=== PATIENT | female | born 1940 | race Caucasian/White ===

== ENCOUNTER 2017-04-05 19:56 | Emergency (ER) | payer MEDICARE, SELFPAY ==
[2017-04-05 19:57] VITALS: BP 157/80; PULSE 68; PULSE 69; RESP 17; RESP 18; TEMP 36.4; O2SAT 98; BMI 35.4
--- NOTE | 2017-04-05 19:59 | RAD_ITS ---
STUDY: X-RAY - RIGHT KNEE REASON FOR EXAM: Female, 76 years old. Twisted right knee. Pain. TECHNIQUE: 4 view(s) of the knee. COMPARISON: None. FINDINGS: There is generalized osteopenia. There is mild medial compartmental arthrosis. There is mild arthrosis of the patellofemoral compartment. There is a joint effusion. RAD/Knee 4 or More Views IMPRESSION: Joint effusion with medial and patellofemoral compartment arthrosis. No acute abnormality. Electronically Signed: Hayder Castellanos MD at 21:11 EST , Service support ,
--- NOTE | 2017-04-05 21:51 | ED.DCSUM_ITS ---
- ER Visit Summary Date of Service: 04/05/17 Chief Complaint: Knee pain History of Present Illness: The patient is a 76 F who presents with right knee pain. It began 5 days ago. She states she was getting out of the car when she slipped on ice and twisted her right knee. She did not fall to the ground. She states she felt and heard a snap. She has been able to bear weight. She denies any recent illness. Physical Examination: Afebrile vitals are stable Moist mucous membranes Heart regular rate and rhythm Lungs are clear Abdomen soft Patient does have a right knee effusion but active full range of motion extensor mechanism intact no bony deformity no erythema not hot to the touch 2+ dorsalis pedis pulse Test Results: Knee x-ray shows an effusion and degenerative arthrosis no fracture. Emergency Department Course and Treatment: She was given an Keagan wrap and instructed on supportive care. She has oxycodone at home. She was advised to follow-up with her primary care physician. She was discharged. Treatment Plan: [] Disposition: Discharge Impression: Acute right knee sprain This note was generated with SNOBSWAP dictation software. It may contain incorrect words, spelling, and punctuation that were not noted in review of the chart prior to signing ED Disposition - Plan for ED Patient: Chief Complaint: Lower Extremity Injury Referrals: Luanne Aquino MD [Primary Care Provider] -
--- NOTE | 2017-04-05 21:51 | ED.DEP ---
ED Disposition - Plan for ED Patient: Chief Complaint: Lower Extremity Injury Instructions: ED Effusion Knee Referrals: Luanne Aquino MD [Primary Care Provider] -
[2017-04-05 22:07] VITALS: RESP 20
== END 2017-04-05 22:07 | disposition home or self-care (01) ==
LOC: ED 21:48
PROVIDERS: Emergency Provider Emergency Medicine; Family Provider Internal Medicine; PCP Internal Medicine
DX: S83.91XA Sprain of unspecified site of right knee, initial encounter (principal); W00.0XXA Fall on same level due to ice and snow, initial encounter; Y93.9 Activity, unspecified; Y92.89 Other specified places as the place of occurrence of the external cause; Y99.9 Unspecified external cause status; E78.00 Pure hypercholesterolemia, unspecified; I10 Essential (primary) hypertension; E11.9 Type 2 diabetes mellitus without complications; M25.461 Effusion, right knee
CPT/HCPCS: 73564; 99282

== ENCOUNTER 2017-04-07 16:20 | Emergency (ER) | payer MEDICARE, SELFPAY ==
[2017-04-07 16:22] VITALS: BP 154/78; PULSE 80; RESP 16; TEMP 36.7; O2SAT 97; BMI 40.4
[2017-04-07] MEDS: Triamcinolone Acetonide 40 MG/ML Vial 80 MG IM (16:58)
--- NOTE | 2017-04-07 16:59 | ED.DCSUM_ITS ---
- ER Visit Summary Date of Service: 04/07/17 Chief Complaint: Right Knee pain History of Present Illness: The patient is a 76 F who slipped getting out of her car 6 days ago. Patient states when she put her right foot on the ground it slipped on ice and she felt a snap in her right knee. She did not fall to the ground. She had x-rays on the that showed a small joint effusion and arthrosis. She now complains of getting some cramping in her leg even when sitting at rest. She is only on oxycodone at home for pain. She wanted others anything that can be done further for her leg. Physical Examination: Vital signs are unremarkable. Head and neck examination is normal. Heart is regular rate and rhythm. Lung sounds are clear. Right lower extremity examination was mild tenderness over the anterior right knee with small joint effusion. There is no focal calf or thigh tenderness. No palpable cords. She has strong distal pulses. She has slow, purposeful range of motion. Test Results: I did review right knee x-rays from 2 days ago. Emergency Department Course and Treatment: At this time patient was advised that she could increase the frequency of her oxycodone every 6 hours. She is limiting it twice a day on average. Keagan wrap will be applied to the knee. She is also asking about a steroid shot which is helped in the past. She be given a dose of Kenalog. She is diabetic and she was warned that this would make her blood sugars increase. She presents on a Saturday afternoon I do not have ultrasound available here to rule out a DVT. Because she had an injury to her leg and concerned about some bleeding in the deep muscles and my clinical suspicion for DVT is low. I will not treat her with an anticoagulant at this time. This is been discussed with her. Patient states she has to attend a tomorrow but will be able to come in Saturday for an ultrasound of her leg. She is written an outpatient order for this test. Treatment Plan: [] Disposition: Discharge Impression: Right knee contusion This note was generated with Masterseek dictation software. It may contain incorrect words, spelling, and punctuation that were not noted in review of the chart prior to signing ED Disposition - Plan for ED Patient: Chief Complaint: Fall Referrals: Luanne Aquino MD [Primary Care Provider] -
--- NOTE | 2017-04-07 16:59 | ED.DEP ---
ED Disposition - Plan for ED Patient: Disposition: Home or Assisted Living Chief Complaint: Fall Instructions: ED Sprain Knee Referrals: Luanne Aquino MD [Primary Care Provider] - Mendy Walker DO [STAFF PHYSICIAN] - 3-5 Days if not improving
== END 2017-04-07 17:30 | disposition home or self-care (01) ==
PROVIDERS: Emergency Provider Emergency Medicine; Family Provider Internal Medicine; PCP Internal Medicine
DX: S80.01XD Contusion of right knee, subsequent encounter (principal); W00.0XXD Fall on same level due to ice and snow, subsequent encounter; E11.9 Type 2 diabetes mellitus without complications; I10 Essential (primary) hypertension; E78.00 Pure hypercholesterolemia, unspecified; I48.91 Unspecified atrial fibrillation; E66.9 Obesity, unspecified
CPT/HCPCS: 99282

== ENCOUNTER → 2017-04-08 11:00 | Outpatient (CLI) | payer MEDICARE, SELFPAY ==
--- NOTE | 2017-04-08 11:22 | VDLE_ITS ---
Reason For Study: RT KNEE STRAIN RIGHT GSV is normal. CFV is compressible, spontaneous, phasic, competent and demonstrates normal augmentation. FV is compressible, spontaneous, phasic, competent and demonstrates normal augmentation. POP V is compressible, spontaneous, phasic, competent and demonstrates normal augmentation. T/P Trunk is compressible. PTV is compressible. RT PerV is compressible. Procedure Exam performed in department. A preliminary report was called and/or faxed to ED. Interpretation Summary Deep veins of the right lower extremity are patent and compressible segmentally. There is no evidence of right lower extremity deep vein thrombosis. Valvular competence appears intact within the proximal deep venous system on the right . The right greater saphenous vein appears patent and compressible segmentally. Ordering Physician: Geri Alvarez Referring Physician: MOO REAVES Performed By: Aleyda Chavis, RYLIE, RVT
== END ==
PROVIDERS: Family Provider Internal Medicine; PCP Internal Medicine; Visit Provider Emergency Medicine
DX: M79.604 Pain in right leg (principal); S86.911A Strain of unspecified muscle(s) and tendon(s) at lower leg level, right leg, initial encounter
CPT/HCPCS: 93971

== ENCOUNTER → 2017-04-23 12:12 | Outpatient (CLI) | payer MEDICARE, SELFPAY ==
[2017-04-23 12:32] LABS: Pathologist Comment May follow
[2017-04-23 13:04] LABS: AUTO B FLUID DILUENT BKGD CT WBC <0.1 RBC <0.01 (W<.1,R<.01); Source- Body Fluid SYNOVIAL
[2017-04-23 13:05] LABS: Color / Synovial Fluid YELLOW (Pale Yellow); Viscosity / Synovial Fluid Sl. Viscous (HIGH)
[2017-04-23 13:06] LABS: Appearance /Synovial Fluid Clear (CLEAR); Synovial Fld Mononuclear WBC # 0.352 10^3/ul; Synovial Fld Mononuclear WBC % 75.4 %; Synovial Fld Polynuclear WBC # 0.115 10^3/ul; Synovial Fld Polynuclear WBC % 24.6 %
[2017-04-23 13:48] LABS: RBC /Synovial Fluid 176 /mm3 (0)
[2017-04-23 14:06] LABS: Lymph 28 %; Monocyte /Synovial Fluid 64 %; Neutrophil 8 % (0-25)
[2017-04-23 14:07] LABS: Source / Synovial Fluid RIGHT KNEE
[2017-04-25 09:09] LABS: Pathologist Review Reviewed
[2017-04-25 09:26] LABS: GLUCOSE, SYNOVIAL FLUID 208 mg/dL (.); PROTEIN, SYNOVIAL FLUID 4.1 g/dL (.)
== END ==
PROVIDERS: Visit Provider Orthopaedic Surgery
DX: S83.241A Other tear of medial meniscus, current injury, right knee, initial encounter (principal)
CPT/HCPCS: 82945; 84157; 87070; 87075; 87205; 89050; 89051; 89060

== ENCOUNTER → 2017-05-02 13:07 | Outpatient (CLI) | payer MEDICARE, SELFPAY ==
--- NOTE | 2017-05-02 13:09 | MRI_ITS ---
STUDY: MRI RIGHT KNEE REASON FOR EXAM: Medial knee pain after slipping injury 04/01/2017. TECHNIQUE: Standardized fat and water weighted pulse sequences were obtained in all 3 orthogonal planes. COMPARISON: Radiographs 04/05/2017. FINDINGS: There is a flap tear of the medial meniscus with a displaced fragment at the superior aspect of the posterior horn/body junction of the medial meniscus (proton-density coronal images 14-17). There is mild arthrosis of the medial femorotibial compartment with mild chondral thinning of the medial femoral condyle (T2 sagittal image 19). There is a subchondral stress fracture of the medial femoral condyle (proton-density coronal images 17-19) with bone edema. Normal medial collateral ligamentous complex (MCL). Normal distal semimembranosus, gracilis and semitendinosus tendons. Normal lateral meniscus. Normal hyaline cartilage of the lateral femorotibial compartment. Normal lateral femoral condyle and tibial plateau. Normal proximal tibiofibular articulation. Normal lateral collateral (fibular) ligament. Normal popliteus tendon. Normal biceps femoris tendon. Normal anterior cruciate ligament (ACL). Normal posterior cruciate ligament (PCL). Normal congruent patellofemoral articulation. There is mild arthrosis of the patellofemoral compartment with mild chondral thinning (T2 sagittal image 14). Normal medial and lateral patellar retinaculum. Normal visualized quadriceps tendon. Normal patellar tendon. Normal Hoffa's fat pad. There is a small joint effusion. There is a thin medial patellar plica. There is mild edema in the anterior subcutis adipose space. The otherwise visualized osseous structures are unremarkable. MRI/Lower Ext Joint Only (Routine) IMPRESSION: Medial meniscal tear. Subchondral stress fracture of the medial femoral condyle. Mild arthrosis of the medial femorotibial and patellofemoral compartments. Small joint effusion. Electronically Signed: Lennox Miranda MD at 15:13 EDT Tel , Service support ,
== END ==
PROVIDERS: Visit Provider Orthopaedic Surgery
DX: S83.241A Other tear of medial meniscus, current injury, right knee, initial encounter (principal); M25.561 Pain in right knee
CPT/HCPCS: 73721

== ENCOUNTER 2017-05-15 07:27 | Day surgery (SDC) | payer MEDICARE, SELFPAY ==
[2017-05-15] VITALS (10 sets, daily range): BP systolic 116–155; BP diastolic 48–86; PULSE 65–83; RESP 15–18; TEMP 35.7–37.6; O2SAT 91–96; BMI 37.7
[2017-05-15 08:51] LABS: Bedside Glucose 256 mg/dL (70-110)
[2017-05-15] MEDS: Cefazolin 2 GM in 0.9% Normal Saline 100 ML IV (09:17)
--- NOTE | 2017-05-15 09:35 | RAD_ITS ---
STUDY: X-RAY - RIGHT KNEE REASON FOR EXAM: Micro internal interval fixation medial femoral condyle. TECHNIQUE: 2 fluoroscopic view(s) of the knee. COMPARISON: Radiographs 04/05/2017. FINDINGS: 2 lateral views of the knee reveal an arthroscope and gas in the knee joint. Electronically Signed: Lennox Miranda MD at 7:57 EDT Tel , Service support , RAD/Knee 1 or 2 Views
[2017-05-15] MEDS: Mupirocin Ointment 22gm Tube 1 APPLIC (09:44)
[2017-05-15] MEDS: Bupivacaine 0.25% 30 ML Vial (11:25)
--- NOTE | 2017-05-15 11:30 | PCM.DC.ORTHO ---
Discharge Diet: No Restrictions - nwb right leg, sterile dressings removed at pod 4 and apply bandaids to incision sites, do not get incision wet until pod4, walker at all times, follow up in 2 weeks, call with concerns Discharge Activity: May Not Drive May shower in (days): 1 Ice area for (Minutes): 20 - Every hour while awake. Weight Bearing Status: Weight bearing as tolerated Keep extremity elevated above heart level: Operative Extremity Call your doctor if your incision/area has: Continuous Slow Oozing, Sudden Increased Bleeding, Increased Pain/ Swelling, Increased Redness, Foul Smelling Discharge Call your doctor if you observe: Fever of 101 or Higher, Coldness, Increased Pain, Numbness or Tingling, Change in Color, Calf discomfort Allergies/Adverse Reactions: Allergies ramelteon [From Rozerem] Allergy (Verified 05/15/17 08:05) Other bupropion Adverse Reaction (Verified 05/10/17 14:44) Other UNKNOWN bupropion HCl [From Wellbutrin] Adverse Reaction (Verified 05/10/17 14:44) Other UNKNOWN dexfenfluramine HCl [From Redux] Adverse Reaction (Verified 05/10/17 14:44) Unknown hydrochlorothiazide Adverse Reaction (Verified 05/10/17 14:44) Other UNKNOWN ketorolac tromethamine [From Toradol] Adverse Reaction (Verified 05/10/17 14:44) Itching oxaprozin [From Daypro] Adverse Reaction (Verified 05/10/17 14:44) Other UNKNOWN Medications to take at Discharge ALPRAZolam [Xanax] 0.5 mg PO BID 12/11/13 Bumetanide [Bumex] 0.5 mg PO DAILY 12/11/13 Diltiazem CD [Cardizem CD] 240 mg PO DAILY 12/11/13 Irbesartan [Avapro] 300 mg PO DAILY 12/11/13 Pravastatin [Pravachol] 20 mg PO QHS 12/11/13 Zolpidem Tartrate [Ambien Cr] 12.5 mg PO QHS 12/11/13 Canagliflozin [Invokana] 300 mg PO DAILY 09/12/16 Oxycodone HCl/Acetaminophen [Percocet 7.5-325 mg Tablet] 1 ea PO BID 09/12/16 Duloxetine Hcl [Cymbalta] 60 mg PO DAILY 05/10/17 Oxycodone HCl/Acetaminophen [Percocet 5/325] 1 - 2 tablet PO Q6H PRN PRN #56 tablet 05/15/17 The following prescriptions were given: Oxycodone HCl/Acetaminophen [Percocet 5/325] 1 - 2 tablet PO Q6H PRN PRN #56 tablet PRN Reason: Pain Primary Care Physician: Care Physician,No Primary [Primary Care Provider] - Please Follow Up With: Mendy Walker, - [phone]
--- NOTE | 2017-05-15 11:32 | PCM.OPRPT ---
Report of Operation Date of Procedure: 05/15/17 Pre-Operative Diagnosis: right knee osteoarthritis, medial and lateral meniscus tears, mfc subchondral fracture/edema Post-Operative Diagnosis: same Surgery/Procedure Performed:: sark, pmm and plm, patella chondroplasty, synovectomy, mfc microinternal fixation with bone cement Type of Anesthesia:: General Anesthesiologist: Darien Granados Estimated Blood Loss (mL): minimal Fluids Replaced: 700cc lr Description of Procedure: Preoperative note 76-year-old female with constant right knee pain locking instability. Patient failed conservative treatment elected proceed with a right knee arthroscopy repair is indicated after MRI confirms medial femoral condyle subchondral fracture as well as an unstable medial meniscus and questionable lateral meniscus tear as well as arthritis. Wrist benefits and alternatives surgery discussed with patient. Risks including but not limited to blood loss, blood clot, infection, neurovascular injury, failure procedure, loss of life and loss of limb. Patient is aware would like to proceed with right knee arthroscopy repair is indicated. We did discuss that she may still have pain from the arthritis that was residual however she has grade 4 eburnated changes we probably would not do the subchondral plasty she has at least have some sort of cartilage at least a grade 3-2 purulent covering the MFC before and we will proceed. Patient and family are aware we will proceed as indicated. Operative note Patient seen and examined preoperative holding area. Right knee was marked. Patient brought to the operating room placed supine on the operating table. Signing, anesthesia, antibiotics for Right knee was prepped and draped in usual usual sterile fashion with a tourniquet around her upper thigh. We marked out our anterior lateral anterior medial portal. We then elevated a segment of the leg and the tourniquet was raised to pressure of 300 torr. Timeout was performed. We created her anterior lateral portal under standard technique. We visualize the patellofemoral joint. She had grade 2 fibrillated changes are unstable at the inferior portal pole of patella. We then moved to the anteromedial joint created anterior medial portal under direct visualization. We able to probe the unstable posterior horn to mid body tear. The combination of a shaver and a basket resected to a stable rim. The ACL and PCL were present within the notch. We then moved to the lateral joint line. There was an unstable anterior horn to mid body tear that was carefully resected combination of a shaver and a basket as well. We then reinserted our probe ensure that we had stable remnant meniscus remaining of the medial lateral which we did have. The lateral femoral condyle was intact stable probing there was grade 2 fibrillated changes of the lateral tibial plateau. The medial femoral condyle had grade 2 and grade 3 but cartilage was albeit thin and a 2 x 4 area still like him intact as well as the medial tibial plateau. There is some grade 2 fibrillated changes in grade 3 in the centralized area of the medial tibial plateau but no eburnated no [id number]. We irrigated with copious amounts of sterile saline. We then moved to our micro-internal fixation. Preoperative review of the patient's right knee MRI and the location of the bone marrow lesion consistent with insufficiency stress fracture in the middle femoral condyle was identified. Preoperative surgical planning allow for determination of the optimal method for assessing lesion. Intraoperatively image fluoroscopy combined with bone target instruments from Gin were used to guide surgical instruments into the proximity of the subchondral MFC fracture. The Gin acupoint injection cannula was drilled into the subchondral bone standard repair without methodology pathology was used to treat the subchondral bone defect. Image fluoroscopy was utilized to confirm accurate insertion of the injection cannula into the subchondral fracture. After insertion fracture stabilization position was performed by injecting 1-1/2 cc of Gin bone substitute into the medial femoral condyle. Image fluoroscopy was used to monitor the injection process we did have a little bit extravasated. We then ensure that the bio material flowed into the fracture site to stabilize the fracture and facilitate fracture repair. He has slight extravasation of the bone cement we did go back into the knee and irrigate the knee with copious amounts of sterile saline into we had a completely clear knee with no particles remaining. This did not did extend our tourniquet time quite a bit as I wanted to ensure that there is no particles remaining. We also confirmed with fluoroscopy that there is nothing further in the joint and that we had good bone filling substitute into the defect which is also visualized on fluoroscopy. After irrigating the knee with copious amounts of sterile saline portals were closed with interrupted 4-0 nylon stitches and the placement for the injection was closed with interrupted 4-0 nylon stitch as well. sterile dressing was applied. The patient tolerated the procedure well there are no complications patient was transferred to the recovery room in stable condition. Postoperative note Having an issue with the printer so we will wait until the pictures were printed and we had 1 of the rubs in to fix the printer so that we can give it to the family Nonweightbearing right leg Sterile dressings to remove removed in 4 days Percocet prescription at a [facility] pharmacy next Follow-up in 2 weeks Call with concerns as This note was generated with GoFishation software. It may contain incorrect words, spelling, and punctuation that were not noted in checking the note before signing.
[2017-05-15] MEDS: HYDROcodone Bitartrate/Apap 5/325 Tablet PO (13:52)
== END 2017-05-15 14:42 | disposition home or self-care (01) ==
LOC: SDC 07:28 → AC 07:30
PROVIDERS: Visit Provider Orthopaedic Surgery
PROC: 3E0U3GB Introduction of Recombinant Bone Morphogenetic Protein into Joints, Percutaneous Approach (ICD-10-PCS; CPT 0707T; principal; 2017-05-15 09:15)
DX: M17.11 Unilateral primary osteoarthritis, right knee (principal); S83.241D Other tear of medial meniscus, current injury, right knee, subsequent encounter; I10 Essential (primary) hypertension; E11.9 Type 2 diabetes mellitus without complications; K21.9 Gastro-esophageal reflux disease without esophagitis; E78.00 Pure hypercholesterolemia, unspecified; E55.9 Vitamin D deficiency, unspecified; F32.9 Major depressive disorder, single episode, unspecified; F41.9 Anxiety disorder, unspecified
CPT/HCPCS: 29879; 29880; 73560; 76000; 82962; J7120; J2405

== ENCOUNTER → 2017-05-23 14:42 | Outpatient (CLI) | payer MEDICARE, SELFPAY ==
--- NOTE | 2017-05-23 14:46 | VDLE_ITS ---
Reason For Study: LEG PAIN AND SWELLING RIGHT LEFT GSV is normal. CFV is compressible, spontaneous, phasic, CFV is compressible, spontaneous, phasic, competent, and demonstrates normal competent and demonstrates normal augmentation. augmentation. FV is compressible, spontaneous, phasic, competent and demonstrates normal augmentation. POP V, T/P trunk, PTV, PER V, Soleus V and SSV are dilated and non-compressible with intraluminal echoes. Procedure Exam performed in department. A preliminary report was called and/or faxed to Dr. Walker. Interpretation Summary Acute deep vein thrombosis is noted in the right popliteal vein. Acute deep vein thrombosis is noted in the right tibio-peroneal trunk. Acute deep vein thrombosis is noted in the right posterior tibial vein. Acute deep vein thrombosis is noted in the right peroneal vein. Acute deep vein thrombosis is noted in the right soleus vein. The right common femoral vein and femoral vein are patent, compressible, and competent. The right greater saphenous vein appears patent and compressible segmentally. Acute superficial thrombophlebitis is noted in the right small saphenous vein. Ordering Physician: Mendy Walker Referring Physician: Luanne Aquino M.D. Performed By: Reina Ferrera RVT
== END ==
PROVIDERS: Family Provider Internal Medicine; PCP Internal Medicine; Visit Provider Orthopaedic Surgery
DX: M79.661 Pain in right lower leg (principal)
CPT/HCPCS: 93971

== ENCOUNTER → 2017-05-28 14:20 | Outpatient (CLI) | payer MEDICARE, SELFPAY ==
--- NOTE | 2017-05-28 14:22 | RAD_ITS ---
STUDY: X-RAY - RIGHT KNEE REASON FOR EXAM: Postop. TECHNIQUE: 4 view(s) of the knee. COMPARISON: Radiographs 04/05/2017. FINDINGS: There is osteopenia. There is an area of osteosclerosis in the medial femoral condyle. Normal visualized proximal tibia and fibula. Normal proximal tibiofibular articulation. There is joint space narrowing of the medial femorotibial compartment. Normal lateral femorotibial compartment. There is no significant joint space narrowing of the patellofemoral articulation. There is a joint effusion. There is a small enthesophyte at the superior pole of the patella. RAD/Knee 4 or More Views IMPRESSION: Interval development of osteosclerosis in the medial femoral condyle suggestive of insufficiency fracture. Arthrosis of the medial femorotibial compartment. Joint effusion. Electronically Signed: Lennox Miranda MD at 12:59 EDT Tel , Service support ,
== END ==
PROVIDERS: Family Provider Internal Medicine; PCP Internal Medicine; Visit Provider Orthopaedic Surgery
DX: M25.561 Pain in right knee (principal)
CPT/HCPCS: 73564

== ENCOUNTER 2017-05-30 09:21 | Observation (INO) | payer MEDICARE, SELFPAY ==
[2017-05-30] VITALS (8 sets, daily range): BP systolic 148–154; BP diastolic 64–85; PULSE 82–96; RESP 16–18; TEMP 36.5–36.8; O2SAT 96–98; BMI 38.9; BMI 38.7; BMI 38.8
--- NOTE | 2017-05-30 09:35 | NURSING ---
NO LW OR POA
--- NOTE | 2017-05-30 09:37 | EKG12_ITS ---
Test Reason : CP Blood Pressure : / mmHG Vent. Rate : 084 BPM Atrial Rate : 084 BPM P-R Int : 160 ms QRS Dur : 078 ms QT Int : 378 ms P-R-T Axes : 054 002 080 degrees QTc Int : 446 ms Normal sinus rhythm Nonspecific T wave abnormality Abnormal ECG Confirmed by LOU KEE, SAMI ([id number]), science editor JIMMY HART ([id number]) on 06/04/2017 2:11:47 PM Referred By: CHEPE Confirmed By:SAMI BLAKE MD
--- NOTE | 2017-05-30 09:37 | RAD_ITS ---
STUDY: X-RAY CHEST REASON FOR EXAM: Female, 76 years old. Chest pain. Confusion. TECHNIQUE: Single AP portable view of the chest. COMPARISON: Comparison is made with prior study dated September 12, 2016. FINDINGS: EKG electrodes are seen. The lungs are clear and expanded. There is no demonstrated pleural abnormality. Normal size heart. Normal mediastinum and deondre. Normal visualized pulmonary arteries. There is atherosclerotic tortuosity of the aortic arch and descending thoracic aorta. Normal visualized thoracic spine. Normal visualized ribs, clavicles, and shoulders. There is no demonstrated abnormality of the visualized soft tissue structures of the upper abdomen. RAD/Chest 1 View (Portable) IMPRESSION: No acute abnormality is present. Electronically Signed: Uvaldo Biswas MD at 11:23 EDT Tel [phone], Service support ,
[2017-05-30] MEDS: 0.9% Normal Saline 1,000 ML 150 ML IV (10:16)
--- NOTE | 2017-05-30 10:42 | CT_ITS ---
STUDY: CT BRAIN WITHOUT CONTRAST REASON FOR EXAM: Female, 76 years old. Confusion and memory loss. RADIATION DOSAGE (If Supplied By Facility): CTDIvol = ( 44.99 ) mGy, DLP = ( 796.11 ) mGycm TECHNIQUE: Transaxial CT imaging of the brain was performed without administration of intravenous contrast material. Individualized dose optimization techniques were used for this CT. COMPARISON: None. FINDINGS: Normal soft tissue structures. Normal calvarium. There is mild cerebral atrophy with widening of the extra-axial spaces and ventricular dilatation. There are areas of decreased attenuation within the white matter tracts of the supratentorial brain, consistent with microvascular disease changes. Normal basal ganglia and thalami. Normal brainstem. Normal cerebellum. There is no intracranial hemorrhage. There are no findings of an acute ischemic infarction. Atherosclerotic calcification of the cavernous portions of the internal carotid arteries bilaterally. Opacification of the sphenoid sinus bilaterally. CT/Brain/Head without Contrast IMPRESSION: Chronic involutional changes of the brain. There is opacification of the sphenoid sinus bilaterally. Electronically Signed: Uvaldo Biswas MD at 11:52 EDT Tel [phone], Service support ,
--- NOTE | 2017-05-30 10:46 | NURSING ---
NO LW OR POA
[2017-05-30 11:05] LABS: Absolute Lymphocyte Count 1.43 X10^3/ul (0.83-4.51); Basophil# 0.01 X10^3/uL; Basophil% 0.1 % (0-1); Eosinophil# 0.04 X10^3/uL; Eosinophils% 0.4 % (0-5); Lymphocyte # 1.43 X10^3/ul (4.0); Mean Corp Hgb Conc 32.5 g/gl (32-36); Mean Corpuscular Hgb 30.6 pg (27.0-32.0); Mean Corpuscular Volume 94.1 fL (81-99); Mean Platelet Vol. 10.1 fl (6.2-12.0); Monocyte# 0.45 X10^3/uL; Monocyte% 4.1 % (0-10); Neutrophil # 8.98 X10^3/uL (2.7-7.7); Neutrophil % 81.9 % (47-70); Platelet Count 161 K/mm3 (150-450); RBC Distribution Width CV 14.9 % (11.6-14.6); RBC Distribution Width SD 50.4 fl (35.1-43.9); Red Blood Count 4.25 M/mm3 (4.2-5.4)
[2017-05-30 11:06] LABS: POSITIVE COUNT NO; POSITIVE DIFFERENTIAL NO; POSITIVE MORPHOLOGY NO
[2017-05-30 11:14] LABS: Anion Gap 7 (5-15); BUN 11 mg/dL (7-18); BUN/Creat Ratio 16.9 RATIO (10-20); Calcium,Total 9.5 mg/dL (8.5-10.1); Chloride 107 mmol/L (98-107); Creatinine, Serum 0.65 mg/dL (0.55-1.02); EST Glomerular Filtration Rate 94 mL/min (>60); Est Glom Filt Rate - Afr Amer 114 mL/min (>60); Estimated Creatinine Clearance 41.97 ml/min; Glucose 141 mg/dL (74-106); Potassium 3.8 mmol/L (3.5-5.1); Sodium Level 140 mmol/L (136-145)
--- NOTE | 2017-05-30 11:44 | CASEMGMT ---
Social Work Note In to complete initial assessment with pt as she is targeted as a probable admit. Introduced self and role at [facility]. Pt is alert and oriented, but reports memory issues. She is accompanied by family. Pt reports to live in a one-story home. Had an outpatient knee surgery by Dr. Walker on 05/15 and reports a fall in the last week. Claims that a family member usually stays with her, but has not been recently. DME consists of a walker, cane, shower chair, toilet riser and grab bars. Does not anticipate additional DME needs at discharge. Pt and family express that pt may have needs too great for home at this time and educate to [facility] and area SNFs. Pt indicates that she would like to stay at the hospital, but does not feel that she can do the 3 hrs required by [facility]. Requests to go to TCU. Inform that SW will notify that unit and have her placed on a list, but cannot guarantee her a bed at this time. Understanding expressed. Placed call to [facility] and placed pt on TCU list. Will continue to follow to see if pt is admitted and update appropriate inpatient SW if necessary. Aida Gardner, PROCESS DEVELOPMENT MANAGER, [employer]
[2017-05-30 12:11] LABS: Bacteria 0 SEEN /hpf (None Seen); Mucous, Urine 0 SEEN /hpf (<or=2+); Squamous Epithelial Cells - UA 0 SEEN /hpf (5-10)
[2017-05-30 12:27] LABS: Color, Urine Yellow (Yellow); Glucose, Dipstick 1000 mg/dl (Normal); Ketone-Dipstick 15 mg/dl (Negative); Leukocyte Esterase-Dipstick 25 /ul (Negative); Nitrite-Dipstick Negative (Negative); Occult Blood-Urine 10 /ul (Negative); Protein-Dipstick Negative (Negative); Urine Bilirubin Dipstick Negative (Negative); Urine Clarity Clear (Clear); Urine Urobilinogen Normal (Normal)
[2017-05-30 12:43] LABS: Red Blood Cells-Urine 0-5 SEEN /hpf (0-5); White Blood Cells 0-5 SEEN /hpf (0-5)
--- NOTE | 2017-05-30 12:53 | ED.RN ---
med rec completed to pt's best ability. pt forgetful
--- NOTE | 2017-05-30 13:12 | ED.RN ---
PT REFUSED TO HAVE LACTIC ACID DRAWN BY LAB. DR SINGER
--- NOTE | 2017-05-30 13:34 | ED.DCSUM_ITS ---
- ER Visit Summary Date of Service: 05/30/17 Chief Complaint: [Confusion and shortness of breath] History of Present Illness: The patient is a 76 F [presents to the emergency department with confusion this morning. Patient states that she was seen by physician at the [facility] yesterday and diagnosed with a urinary tract infection and started on nitrofurantoin. Patient complains of nausea and some shortness of breath today. Patient complained of some sweats. Patient lives alone. Patient states she cannot remember what medications she is supposed to take. Patient apparently had a surgery on her right knee for torn meniscus on May 15. Patient subsequently developed a DVT and was started on Xarelto. Patient tells me she has been taking her Xarelto regularly. Patient scrubs a mild chest discomfort that she describes as a pressure. Patient feels slightly short of breath. Patient thinks this is her anxiety acting up.] Physical Examination: [HEENT-PERRLA, EOMI. Cranial nerves II through XII grossly intact. TMs clear. Mucous membranes moist. No adenopathy. Cardiovascular-regular rate and rhythm without murmur or ectopy Lungs-clear to auscultation, chest wall stable without crepitus or subcu emphysema Abdomen-normoactive bowel sounds, soft, nontender, no rebound or rigidity, no peritoneal signs. Extremities-intact ?4, normal range of motion, normal pulses, atraumatic] Test Results: [CT scan of the brain without contrast showed chronic involutional changes otherwise nothing acute. CBC with differential was unremarkable. Chemistries unremarkable. Urinalysis was normal. Troponin was less than 0.02. EKG shows sinus rhythm with a ventricular rate of 84 bpm with some nonspecific ST changes and chest x-ray showed nothing acute.] Emergency Department Course and Treatment: [Patient did receive 1 OxyIR tablet for her knee pain as patient normally takes Percocet every 6 hours.] Treatment Plan: Admit for further workup and evaluation of confusion. It is possible her confusion may be medication related. Family is concerned about patient being able to care for herself and are asking about possibility for going to a rehabilitation facility. [] Disposition: [Admit] Impression: [Confusion-etiology uncertain Chest pain-resolved] This note was generated with [employer] dictation software. It may contain incorrect words, spelling, and punctuation that were not noted in review of the chart prior to signing ED Disposition - Plan for ED Patient: Chief Complaint: Mental Status Change Referrals: Luanne Aquino MD [Primary Care Provider] -
--- NOTE | 2017-05-30 13:35 | NURSING ---
MED SURG OBS AMS, CONFUSION TANISHA
--- NOTE | 2017-05-30 13:46 | NURSING ---
DR GARAY IN ER
[2017-05-30] MEDS: oxyCODONE 5 MG Tablet PO ×2 (14:12→21:47)
--- NOTE | 2017-05-30 14:19 | PCM.HP.STD ---
Problem List (1) Altered mental status, unspecified Status: Acute (2) Afib Status: Acute (3) SBO (small bowel obstruction) Status: Acute (4) Hyperlipidemia Status: Chronic (5) Osteoarthritis Status: Chronic (6) Hypertension Status: Chronic (7) Type 2 diabetes mellitus Status: Chronic (8) Right leg DVT Status: Acute Qualifiers: Chronicity: acute (9) Right knee meniscus surgery Status: Chronic History of Present Illness Date of Admission: 05/30/17 Chief Complaint: Altered mental status for few days The patient is a 76 year old F with recent history of right knee meniscal surgery on 05/15/2017 and subsequent development of right lower extremity DVT on Xarelto was brought into ER for altered mental status, confusion and disorientation feeling anxiety for last 2-3 days. As per the family she was recently started on Cymbalta probably 60 mg daily along with she is on Percocet 1-2 tablets q. 6 hourly and Ambien at night. Patient also recently diagnosed with UTI yesterday and she took 1 tablet of nitrofurantoin. Patient has multiple vague complaints including some chest tightness all over aches and pain which are nondescriptive/nonspecific or shortness of breath, most probably related to anxiety. In ED, her workup was was unremarkable. Chest x-ray and CT had did not show acute change. [] Past Medical History Past Medical History (Chronic Problems): Chronic Problems (Last Updated 04/23/17 @ 09:56 by Armida Neal) Right knee meniscus surgery (Chronic) Hyperlipidemia (Chronic) Osteoarthritis (Chronic) Hypertension (Chronic) Type 2 diabetes mellitus (Chronic) Allergies ramelteon [From Rozerem] Allergy (Verified 05/30/17 09:30) Other bupropion Adverse Reaction (Verified 05/30/17 09:30) Other UNKNOWN bupropion HCl [From Wellbutrin] Adverse Reaction (Verified 05/30/17 09:30) Other UNKNOWN dexfenfluramine HCl [From Redux] Adverse Reaction (Verified 05/30/17 09:30) Unknown hydrochlorothiazide Adverse Reaction (Verified 05/30/17 09:30) Other UNKNOWN ketorolac tromethamine [From Toradol] Adverse Reaction (Verified 05/30/17 09:30) Itching oxaprozin [From Daypro] Adverse Reaction (Verified 05/30/17 09:30) Other UNKNOWN Home Medications: Ambulatory Orders Medication Instructions Recorded ALPRAZolam [Xanax] 0.5 mg PO QHS 12/11/13 Bumetanide [Bumex] 1 mg PO DAILY 12/11/13 Diltiazem CD [Cardizem CD] 240 mg PO DAILY 12/11/13 Irbesartan [Avapro] 300 mg PO DAILY 12/11/13 Pravastatin [Pravachol] 20 mg PO QHS 12/11/13 Canagliflozin [Invokana] 300 mg PO DAILY 09/12/16 Oxycodone HCl/Acetaminophen 1 - 2 tablet PO Q6H PRN PRN #56 05/15/17 [Percocet 5/325] tablet rivaroxaban 15 mg tablet 15 mg PO QPM #21 tab 05/23/17 Surgical History: - - 2014 had bowel resection, also had whipple procedure in [place] 2007-, tubal ligation, carpal tunnel in wrist, shoulder and hand surgery hysterectemy, bladder suspension, wall between vagina and colon.cholecystectemy. Smoking Status: Never smoker - *Family History Paternal History Items: - - afib Review of Systems Constitutional: Reports: Weakness, Fatigue. Denies: Chills, Fever, Weight Change HEENT: Denies: Head Aches, Sinus Congestion, Sinus Drainage Cardiovascular: Reports: Chest Tightness. Denies: Chest Pain, Palpitations Respiratory: Denies: Cough, Shortness of breath at rest, Sputum production Gastrointestinal: Denies: Abdominal Pain, Nausea, Vomiting Genitourinary: Denies: Dysuria Musculoskeletal: Reports: Joint Pain. Denies: Joint Tenderness Skin: Denies: Rash, Wounds Neurological: Denies: Numbness, Tingling, Focal weakness Psychiatric: Reports: Anxiety. Denies: Depression, Homicidal Ideations, Suicidal Ideations Hematologic/ Lymphatic: Denies: Easy Bruising, Easy Bleeding VTE Information - Inpt Only VTE Present on Admission: No VTE Mechan Device Prophylaxis: None VTE Pharm Prophylaxis ordered?: Yes Patient Problems: Active and Suspected Problems (Last Updated 04/23/17 @ 09:56 by Armida Neal) Altered mental status, unspecified (Acute) Right leg DVT (Acute) - Physical Exam General: Alert, Oriented x3, Cooperative HEENT: Atraumatic, PERRLA, EOMI, Normocephalic Neck: Supple, No JVD, Negative Carotid Bruits Lungs: Clear to auscultation, No rhonchi Cardiovascular: Regular rate, Regular Rhythm, Normal S1, Normal S2, No murmurs Abdomen: Bowel Sounds Present, Soft, Non Tender, Non-Distended Extremities: Capillary Refill Less than 3 Seconds, Edema Skin: No rashes, No breakdown Musculoskeletal: Arthritic Changes Neurological: Cranial nerves II-XII grossly intact, Neuro grossly intact, - Psych/Mental Status: Normal Affect, Appropriate Vital Signs Temp Pulse Resp BP Pulse Ox 98.2 F 88 18 154/85 H 96 05/30/17 09:24 05/30/17 14:00 05/30/17 14:00 05/30/17 14:00 05/30/17 14:00 Oxygen Delivery Method Room Air Assessment/Plan Active and Suspected Problems (Last Updated 04/23/17 @ 09:56 by Armida Neal) Altered mental status, unspecified (Acute) Right leg DVT (Acute) The patient is a 76 year old F with recent history of right knee meniscal surgery on 05/15/2017 and subsequent development of right lower extremity DVT on Xarelto was brought into ER for altered mental status, confusion and disorientation feeling anxiety for last 2-3 days. As per the family she was recently started on Cymbalta probably 60 mg daily along with she is on Percocet 1-2 tablets q. 6 hourly and Ambien at night. Patient also recently diagnosed with UTI yesterday and she took 1 tablet of nitrofurantoin. Patient has multiple vague complaints including some chest tightness all over aches and pain which are nondescriptive/nonspecific or shortness of breath, most probably related to anxiety. In ED, her workup was was unremarkable. Chest x-ray and CT had did not show acute change. 1. Altered in status most probably acute encephalopathy secondary to polypharmacy/anxiety: The patient is being admitted to PCU. Neurochecks. UA is negative except leukocyte esterase 25. Urine culture ordered. Treat the underlying cause 2. Nonspecific chest pain and some shortness of breath related to anxiety: Serial cardiac enzymes to rule out ACS. 3. Recent diagnosis of UTI, right lower leg DVT status post right meniscal surgery: Continue nitrofurantoin. Continue Xarelto. Follow urine culture. PT and OT ordered for difficulty in mobility and right knee arthritis For possible SNF placement 4. Other chronic comorbidities include paroxysmal A. fib, type 2 diabetes mellitus, hypertension, osteoarthritis and dyslipidemia: Home medication reconciliation done. Current EKG shows normal sinus rhythm at 84 bpm. Previous EKG of November 2017 shows normal sinus rhythm. 5. DVT prophylaxis: On Xarelto. Clinical Impression(s) from Imaging Studies Chest X-Ray 05/30/17 09:37 IMPRESSION: No acute abnormality is present. Electronically Signed: Uvaldo Biswas MD at 11:23 EDT Tel [phone], Service support , Brain CT 05/30/17 10:42 IMPRESSION: Chronic involutional changes of the brain. There is opacification of the sphenoid sinus bilaterally. Electronically Signed: Uvaldo Biswas MD at 11:52 EDT Tel [phone], Service support , Laboratory Results 05/30/17 10:50: WBC 11.0, RBC 4.25, Hgb 13.0, Hct 40.0, MCV 94.1, MCH 30.6, MCHC 32.5, RDW 14.9 H, RDW Differential 50.4 H, Plt Count 161, MPV 10.1, Immature Gran % (Auto) 0.500, Neut % (Auto) 81.9 H, Lymph % (Auto) 13.0 L, [place] % (Auto) 4.1, Eos % (Auto) 0.4, Baso % (Auto) 0.1, Absolute Neuts (auto) 9.0 H, Absolute Lymphs (auto) 1.43, Total Counted Not Reportable 05/30/17 10:50: Sodium 140, Potassium 3.8, Chloride 107, Carbon Dioxide 26.0, Anion Gap 7, BUN 11, Creatinine 0.65, Estim Creat Clear Calc 41.97, Est GFR (MDRD) Af Amer 114, Est GFR (MDRD) Non-Af 94, BUN/Creatinine Ratio 16.9, Glucose 141 H, Calcium 9.5, Troponin I < 0.02 05/30/17 12:05: Urine Color Yellow, Urine Clarity Clear, Urine pH 7.0, Ur Specific [place] 1.010, Urine Protein Negative, Urine Glucose (UA) 1000 H, Urine Ketones 15 H, Urine Occult Blood 10 H, Urine Nitrite Negative, Urine Bilirubin Negative, Urine Urobilinogen Normal, Ur Leukocyte Esterase 25 H, Urine RBC 0-5 SEEN, Urine WBC 0-5 SEEN, Ur Squamous Epith Cells 0 SEEN, Urine Bacteria 0 SEEN, Urine Mucus 0 SEEN Code Visit OBSV E&M: 91932 Initial observation care L3
[2017-05-30] MEDS: 0.9% Normal Saline 1,000 ML 75 ML IV (16:38)
[2017-05-30 17:40] LABS: Bedside Glucose 128 mg/dL (70-110)
[2017-05-30] MEDS: Rivaroxaban 15 MG Tablet PO (18:15)
[2017-05-30] MEDS: QUEtiapine 25 MG Tablet PO (20:19)
[2017-05-30 21:46] LABS: Bedside Glucose 128 mg/dL (70-110)
[2017-05-31] VITALS (9 sets, daily range): BP systolic 127–152; BP diastolic 55–80; PULSE 71–80; RESP 16; TEMP 36.4–36.8; O2SAT 94–96
[2017-05-31] MEDS: oxyCODONE 5 MG Tablet PO ×3 (05:24→20:42)
[2017-05-31 06:55] LABS: Bedside Glucose 200 mg/dL (70-110)
[2017-05-31 07:10] LABS: Absolute Neutrophil Count 3.6 X10^3/uL (2.0-7.7); Basophil# 0.02 X10^3/uL; Basophil% 0.3 % (0-1); Eosinophil# 0.05 X10^3/uL; Eosinophils% 0.8 % (0-5); Hematocrit 36.9 % (37-47); Lymphocyte % 34.6 % (19-41); Mean Corp Hgb Conc 32.5 g/gl (32-36); Mean Corpuscular Volume 95.3 fL (81-99); Mean Platelet Vol. 9.5 fl (6.2-12.0); Monocyte# 0.44 X10^3/uL; Monocyte% 6.9 % (0-10); Neutrophil # 3.59 X10^3/uL (2.7-7.7); Neutrophil % 56.6 % (47-70); Platelet Count 183 K/mm3 (150-450); RBC Distribution Width CV 14.9 % (11.6-14.6); Red Blood Count 3.87 M/mm3 (4.2-5.4); White Blood Count 6.4 K/mm3 (4.4-11.0)
[2017-05-31 07:12] LABS: POSITIVE COUNT NO; POSITIVE DIFFERENTIAL NO; POSITIVE MORPHOLOGY NO
[2017-05-31 07:34] LABS: Anion Gap 7 (5-15); BUN 11 mg/dL (7-18); BUN/Creat Ratio 20.6 RATIO (10-20); Calcium,Total 9.6 mg/dL (8.5-10.1); Chloride 111 mmol/L (98-107); Creatinine, Serum 0.53 mg/dL (0.55-1.02); EST Glomerular Filtration Rate 118 mL/min (>60); Est Glom Filt Rate - Afr Amer 143 mL/min (>60); Estimated Creatinine Clearance 40.21 ml/min; Glucose 123 mg/dL (74-106); Potassium 3.8 mmol/L (3.5-5.1); Sodium Level 143 mmol/L (136-145)
[2017-05-31] MEDS: Nitrofurantoin Macrocrystals 100 MG Capsule PO ×2 (10:30→21:10)
[2017-05-31] MEDS: dilTIAZem CD 240 MG Capsule PO (10:30)
--- NOTE | 2017-05-31 11:01 | CASEMGMT ---
This RN CM to room with PETERSON form at this time. Pt is A/O x4 at this time. PETERSON form explained at this time, pt voices understanding and signs form at this time. Original to chart and copy to pt at this time. Pt voices no further questions/concerns at this time. SStaten HIRAM LILLY
--- NOTE | 2017-05-31 11:27 | CASEMGMT ---
Addendum entered by Marilyn Freed 05/31/17 13:20: AMY spoke with Luciana and let her know therapy has seen patient and their notes are in the computer. Luciana will start the process to obtain insurance approval. Plan: TCU pending insurance approval Marilyn CAM Original Note: Spoke with Luciana in TCU and they can take patient. She will start pre-cert as soon as therapy sees patient. AMY spoke with therapy and they will see patient next. Plan: TCU pending insurance approval Marilny CAM
[2017-05-31 11:51] LABS: Bedside Glucose 135 mg/dL (70-110)
--- NOTE | 2017-05-31 11:55 | PCM.PROGNOTE ---
<Aida Walters - Last Filed: 05/31/17 12:45> Patient Problems: Active and Suspected Problems (Last Updated 04/23/17 @ 09:56 by Armida Neal) Altered mental status, unspecified (Acute) Right leg DVT (Acute) Subjective: Patient seen and examined. Mental status at baseline. Patient states she remembers pieces of the events that occurred prior to admission. She states she feels much better. Patient wishes to go to TCU at discharge. Denies other complaints. - Physical Exam General: Alert, Oriented x3, Cooperative HEENT: Atraumatic, PERRLA, EOMI, Normocephalic Neck: Supple, No JVD, Negative Carotid Bruits Lungs: Clear to auscultation, Normal air movement Cardiovascular: Regular rate, Regular Rhythm, Normal S1, Normal S2, No murmurs Abdomen: Bowel Sounds Present, Soft, Non Tender Extremities: No clubbing, No cyanosis, Edema - Right knee Skin: - - Right knee with diffuse ecchymosis Musculoskeletal: Tenderness - R knee Neurological: Cranial nerves II-XII grossly intact, Neuro grossly intact Psych/Mental Status: Normal Affect, Appropriate Vital Signs Temp Pulse Resp BP Pulse Ox 98.1 F 80 16 129/55 H 96 05/31/17 09:28 05/31/17 09:28 05/31/17 09:28 05/31/17 09:28 05/31/17 09:28 Oxygen Delivery Method Room Air Weight: 99.3 kg Body Mass Index (BMI) 38.7 Intake and Output for Last 24 Hours 05/29/17 05/30/17 05/31/17 23:59 23:59 23:59 Intake Total 392 / 392 1179 / 1179 Output Total 600 / 600 Balance 392 / 392 579 / 579 Laboratory Tests Past 24 Hrs 05/30/17 05/30/17 05/31/17 15:31 18:56 00:51 WBC RBC Hgb Hct MCV MCH MCHC RDW RDW Differential Plt Count MPV Immature Gran % (Auto) Neut % (Auto) Lymph % (Auto) [place] % (Auto) Eos % (Auto) Baso % (Auto) Absolute Neuts (auto) Absolute Lymphs (auto) Total Counted Sodium Potassium Chloride Carbon Dioxide Anion Gap BUN Creatinine Estim Creat Clear Calc Est GFR (MDRD) Af Amer Est GFR (MDRD) Non-Af BUN/Creatinine Ratio Glucose Calcium Troponin I < 0.02 < 0.02 < 0.02 05/31/17 05/31/17 06:05 06:05 WBC 6.4 RBC 3.87 L Hgb 12.0 Hct 36.9 L MCV 95.3 MCH 31.0 MCHC 32.5 RDW 14.9 H RDW Differential 50.0 H Plt Count 183 MPV 9.5 Immature Gran % (Auto) 0.800 Neut % (Auto) 56.6 Lymph % (Auto) 34.6 [place] % (Auto) 6.9 Eos % (Auto) 0.8 Baso % (Auto) 0.3 Absolute Neuts (auto) 3.6 Absolute Lymphs (auto) 2.20 Total Counted Not Reportable Sodium 143 Potassium 3.8 Chloride 111 H Carbon Dioxide 25.0 Anion Gap 7 BUN 11 Creatinine 0.53 L Estim Creat Clear Calc 40.21 Est GFR (MDRD) Af Amer 143 Est GFR (MDRD) Non-Af 118 BUN/Creatinine Ratio 20.6 H Glucose 123 H Calcium 9.6 Troponin I POC Glucose 05/31/17 05/31/17 05/30/17 11:24 06:49 21:42 POC Glucose 135 H 200 H 128 H 05/30/17 16:47 POC Glucose 128 H Medical Necessity - Tobacco Use Smoking Status: Never smoker Tobacco Use: Non-smoker Assessment/Plan Active and Suspected Problems (Last Updated 04/23/17 @ 09:56 by Armida Neal) Altered mental status, unspecified (Acute) Right leg DVT (Acute) Patient is a 76-year-old female admitted 05/30/17 due to altered mental status. She has a past medical history of hyperlipidemia, osteoarthritis, hypertension, type 2 diabetes mellitus, depression, anxiety, recent right knee meniscus surgery. 1. Altered mental status, suspected encephalopathy secondary to polypharmacy and/or UTI-patient states she recently had a few deaths in her family and has been having increased anxiety and depression. Her Cymbalta was increased by primary care physician to 60 mg daily and then decreased back to 30mg. Patient is a poor informant regarding her medications. She is also taking Ambien at night to help her sleep as well as Percocet as needed for pain in which she has received multiple recent prescriptions. She is also on Xanax at bedtime which she states she has been on for approximately 15-20 years. Patient states she has not been taking her medications for 1-2 weeks following surgery due to being out of sorts. She states she normally lays out her medication in a pill dispenser and has not been doing that since her recent surgery. She was started on Seroquel. Cymbalta on hold. Her mental status is now at baseline. Patient also diagnosed with UTI prior to admission and had completed 1 tablet of nitrofurantoin. UA and urine culture during admission unremarkable. Continue Macrobid for 5 days. TCU at [place] pending pre-cert. Brain CT shows chronic changes. Chest x-ray shows no acute abnormality. 2. Chest pain-resolved. Suspected secondary to anxiety. Troponin negative. EKG without evidence of ischemia. 3. Physical debility status post recent right meniscal surgery-patient underwent right knee meniscal surgery 05/15/[address] Walker. Patient states she was told that she will need further repair due to incident prior to admission of patient crawling on knees. Continue outpatient follow-up. 4. Recent right lower extremity DVT-occurred following recent right meniscal surgery. Continue Xarelto. 5. Paroxysmal atrial fibrillation-currently sinus rhythm. Continue Cardizem and Xarelto. 6. Type 2 diabetes mellitus-home oral regimen on hold. Continue Accu-Cheks before meals at bedtime with sliding scale insulin. 7. Hypertension-stable, continue current regimen. 8. Hyperlipidemia-not on statin. 9. Osteoarthritis-PRN pain regimen. PT/OT. DVT prophylaxis-Xarelto. Discharge planning-TCU pending pre-cert. This patient was seen by SINDI Hidalgo under the supervision of Dr. Tirado. <Margarito Tirado - Last Filed: 05/31/17 15:31> - Physical Exam Vital Signs Temp Pulse Resp BP Pulse Ox 98.1 F 71 16 129/55 H 96 05/31/17 09:28 05/31/17 11:00 05/31/17 09:28 05/31/17 09:28 05/31/17 09:28 Oxygen Delivery Method Room Air Weight: 99.3 kg Body Mass Index (BMI) 38.7 Intake and Output for Last 24 Hours 05/29/17 05/30/17 05/31/17 23:59 23:59 23:59 Intake Total 392 / 392 1569 / 1569 Output Total 600 / 600 Balance 392 / 392 969 / 969 Laboratory Tests Past 24 Hrs 05/30/17 05/30/17 05/31/17 15:31 18:56 00:51 WBC RBC Hgb Hct MCV MCH MCHC RDW RDW Differential Plt Count MPV Immature Gran % (Auto) Neut % (Auto) Lymph % (Auto) [place] % (Auto) Eos % (Auto) Baso % (Auto) Absolute Neuts (auto) Absolute Lymphs (auto) Total Counted Sodium Potassium Chloride Carbon Dioxide Anion Gap BUN Creatinine Estim Creat Clear Calc Est GFR (MDRD) Af Amer Est GFR (MDRD) Non-Af BUN/Creatinine Ratio Glucose Calcium Troponin I < 0.02 < 0.02 < 0.02 05/31/17 05/31/17 06:05 06:05 WBC 6.4 RBC 3.87 L Hgb 12.0 Hct 36.9 L MCV 95.3 MCH 31.0 MCHC 32.5 RDW 14.9 H RDW Differential 50.0 H Plt Count 183 MPV 9.5 Immature Gran % (Auto) 0.800 Neut % (Auto) 56.6 Lymph % (Auto) 34.6 [place] % (Auto) 6.9 Eos % (Auto) 0.8 Baso % (Auto) 0.3 Absolute Neuts (auto) 3.6 Absolute Lymphs (auto) 2.20 Total Counted Not Reportable Sodium 143 Potassium 3.8 Chloride 111 H Carbon Dioxide 25.0 Anion Gap 7 BUN 11 Creatinine 0.53 L Estim Creat Clear Calc 40.21 Est GFR (MDRD) Af Amer 143 Est GFR (MDRD) Non-Af 118 BUN/Creatinine Ratio 20.6 H Glucose 123 H Calcium 9.6 Troponin I POC Glucose 05/31/17 05/31/17 05/30/17 11:24 06:49 21:42 POC Glucose 135 H 200 H 128 H 05/30/17 16:47 POC Glucose 128 H Assessment/Plan This patient was seen in conjunction with SINDI Hidalgo. I have independently interviewed and examined the patient and reviewed pertinent historical, laboratory, and other data. Please refer to Cate Hidalgo for details of this patient's presentation, findings, and recommendations. I have reviewed Aida Romeo, SENIOR BILLING CONSULTANT-C note and concur with documented findings. In brief, Patient is an 76 lady who presented with AMS after a recent increase in her cymbalta Physical Examination: GENERAL: cooperative HEENT: Clear conjunctiva, NECK; supple, normal thyroid, CHEST: Clear to auscultation bilaterally HEART: Regular S1 S2, no audible murmurs ABDOMEN: soft, non-tender, normoactive bowel sounds, EXTREMITIES: No edema, no clubbing, no cyanosis. SEXUAL ASSAULT SOCIAL WORKER: Awake, no lateralizing signs. SKIN: No rash Assessment: 1. Altered mental status, encephalopathy secondary to polypharmacy 2. Recent right lower extremity DVT- provoked following surgery on Xarelto. 3. Paroxysmal atrial fibrillation- 4. Atypical Chest pain-resolved. 5. Diabetes mellitus II 6. Hypertension-stable, 7. Dyslipidemia 8. Generalized osteoarthritis 9. Physical debility following recent right meniscus surgery Recommendations: 1. I have discussed the results of my overview and impressions with the patient 2. Options for management were reviewed Code Visit Inpatient E&M: 75590 Subs Hosp L3
--- NOTE | 2017-05-31 12:45 | PN_ITS ---
<Aida Walters - Last Filed: 05/31/17 12:45> Patient Problems: Active and Suspected Problems (Last Updated 04/23/17 @ 09:56 by Armida Neal ) Altered mental status, unspecified (Acute) Right leg DVT (Acute) Subjective: Patient seen and examined. Mental status at baseline. Patient states she remembers pieces of the events that occurred prior to admission. She states she feels much better. Patient wishes to go to TCU at discharge. Denies other complaints. - Physical Exam General: Alert, Oriented x3, Cooperative HEENT: Atraumatic, PERRLA, EOMI, Normocephalic Neck: Supple, No JVD, Negative Carotid Bruits Lungs: Clear to auscultation, Normal air movement Cardiovascular: Regular rate, Regular Rhythm, Normal S1, Normal S2, No murmurs Abdomen: Bowel Sounds Present, Soft, Non Tender Extremities: No clubbing, No cyanosis, Edema - Right knee Skin: - - Right knee with diffuse ecchymosis Musculoskeletal: Tenderness - R knee Neurological: Cranial nerves II-XII grossly intact, Neuro grossly intact Psych/Mental Status: Normal Affect, Appropriate Vital Signs Temp Pulse Resp BP Pulse Ox 98.1 F 80 16 129/55 H 96 05/31/17 09:28 05/31/17 09:28 05/31/17 09:28 05/31/17 09:28 05/31/17 09:28 Oxygen Delivery Method Room Air Weight: 99.3 kg Body Mass Index (BMI) 38.7 Intake and Output for Last 24 Hours 05/29/17 05/30/17 05/31/17 23:59 23:59 23:59 Intake Total 392 / 392 1179 / 1179 Output Total 600 / 600 Balance 392 / 392 579 / 579 Laboratory Tests Past 24 Hrs 05/30/17 05/30/17 05/31/17 15:31 18:56 00:51 WBC RBC Hgb Hct MCV MCH MCHC RDW RDW Differential Plt Count MPV Immature Gran % (Auto) Neut % (Auto) Lymph % (Auto) [place] % (Auto) Eos % (Auto) Baso % (Auto) Absolute Neuts (auto) Absolute Lymphs (auto) Total Counted Sodium Potassium Chloride Carbon Dioxide Anion Gap BUN Creatinine Estim Creat Clear Calc Est GFR (MDRD) Af Amer Est GFR (MDRD) Non-Af BUN/Creatinine Ratio Glucose Calcium Troponin I < 0.02 < 0.02 < 0.02 05/31/17 05/31/17 06:05 06:05 WBC 6.4 RBC 3.87 L Hgb 12.0 Hct 36.9 L MCV 95.3 MCH 31.0 MCHC 32.5 RDW 14.9 H RDW Differential 50.0 H Plt Count 183 MPV 9.5 Immature Gran % (Auto) 0.800 Neut % (Auto) 56.6 Lymph % (Auto) 34.6 [place] % (Auto) 6.9 Eos % (Auto) 0.8 Baso % (Auto) 0.3 Absolute Neuts (auto) 3.6 Absolute Lymphs (auto) 2.20 Total Counted Not Reportable Sodium 143 Potassium 3.8 Chloride 111 H Carbon Dioxide 25.0 Anion Gap 7 BUN 11 Creatinine 0.53 L Estim Creat Clear Calc 40.21 Est GFR (MDRD) Af Amer 143 Est GFR (MDRD) Non-Af 118 BUN/Creatinine Ratio 20.6 H Glucose 123 H Calcium 9.6 Troponin I POC Glucose 05/31/17 05/31/17 05/30/17 11:24 06:49 21:42 POC Glucose 135 H 200 H 128 H 05/30/17 16:47 POC Glucose 128 H Medical Necessity - Tobacco Use Smoking Status: Never smoker Tobacco Use: Non-smoker Assessment/Plan Active and Suspected Problems (Last Updated 04/23/17 @ 09:56 by Armida Neal ) Altered mental status, unspecified (Acute) Right leg DVT (Acute) Patient is a 76-year-old female admitted 05/30/17 due to altered mental status. She has a past medical history of hyperlipidemia, osteoarthritis, hypertension, type 2 diabetes mellitus, depression, anxiety, recent right knee meniscus surgery. 1. Altered mental status, suspected encephalopathy secondary to polypharmacy and/or UTI-patient states she recently had a few deaths in her family and has been having increased anxiety and depression. Her Cymbalta was increased by primary care physician to 60 mg daily and then decreased back to 30mg. Patient is a poor informant regarding her medications. She is also taking Ambien at night to help her sleep as well as Percocet as needed for pain in which she has received multiple recent prescriptions. She is also on Xanax at bedtime which she states she has been on for approximately 15-20 years. Patient states she has not been taking her medications for 1-2 weeks following surgery due to being out of sorts. She states she normally lays out her medication in a pill dispenser and has not been doing that since her recent surgery. She was started on Seroquel. Cymbalta on hold. Her mental status is now at baseline. Patient also diagnosed with UTI prior to admission and had completed 1 tablet of nitrofurantoin. UA and urine culture during admission unremarkable. Continue Macrobid for 5 days. TCU at [facility] pending pre-cert. Brain CT shows chronic changes. Chest x-ray shows no acute abnormality. 2. Chest pain-resolved. Suspected secondary to anxiety. Troponin negative. EKG without evidence of ischemia. 3. Physical debility status post recent right meniscal surgery-patient underwent right knee meniscal surgery 05/15/[address] Walker. Patient states she was told that she will need further repair due to incident prior to admission of patient crawling on knees. Continue outpatient follow-up. 4. Recent right lower extremity DVT-occurred following recent right meniscal surgery. Continue Xarelto. 5. Paroxysmal atrial fibrillation-currently sinus rhythm. Continue Cardizem and Xarelto. 6. Type 2 diabetes mellitus-home oral regimen on hold. Continue Accu-Cheks before meals at bedtime with sliding scale insulin. 7. Hypertension-stable, continue current regimen. 8. Hyperlipidemia-not on statin. 9. Osteoarthritis-PRN pain regimen. PT/OT. DVT prophylaxis-Xarelto. Discharge planning-TCU pending pre-cert. This patient was seen by SINDI Hidalgo under the supervision of Dr. Tirado. <Margarito Tirado - Last Filed: 05/31/17 15:31> - Physical Exam Vital Signs Temp Pulse Resp BP Pulse Ox 98.1 F 71 16 129/55 H 96 05/31/17 09:28 05/31/17 11:00 05/31/17 09:28 05/31/17 09:28 05/31/17 09:28 Oxygen Delivery Method Room Air Weight: 99.3 kg Body Mass Index (BMI) 38.7 Intake and Output for Last 24 Hours 05/29/17 05/30/17 05/31/17 23:59 23:59 23:59 Intake Total 392 / 392 1569 / 1569 Output Total 600 / 600 Balance 392 / 392 969 / 969 Laboratory Tests Past 24 Hrs 05/30/17 05/30/17 05/31/17 15:31 18:56 00:51 WBC RBC Hgb Hct MCV MCH MCHC RDW RDW Differential Plt Count MPV Immature Gran % (Auto) Neut % (Auto) Lymph % (Auto) [place] % (Auto) Eos % (Auto) Baso % (Auto) Absolute Neuts (auto) Absolute Lymphs (auto) Total Counted Sodium Potassium Chloride Carbon Dioxide Anion Gap BUN Creatinine Estim Creat Clear Calc Est GFR (MDRD) Af Amer Est GFR (MDRD) Non-Af BUN/Creatinine Ratio Glucose Calcium Troponin I < 0.02 < 0.02 < 0.02 05/31/17 05/31/17 06:05 06:05 WBC 6.4 RBC 3.87 L Hgb 12.0 Hct 36.9 L MCV 95.3 MCH 31.0 MCHC 32.5 RDW 14.9 H RDW Differential 50.0 H Plt Count 183 MPV 9.5 Immature Gran % (Auto) 0.800 Neut % (Auto) 56.6 Lymph % (Auto) 34.6 [place] % (Auto) 6.9 Eos % (Auto) 0.8 Baso % (Auto) 0.3 Absolute Neuts (auto) 3.6 Absolute Lymphs (auto) 2.20 Total Counted Not Reportable Sodium 143 Potassium 3.8 Chloride 111 H Carbon Dioxide 25.0 Anion Gap 7 BUN 11 Creatinine 0.53 L Estim Creat Clear Calc 40.21 Est GFR (MDRD) Af Amer 143 Est GFR (MDRD) Non-Af 118 BUN/Creatinine Ratio 20.6 H Glucose 123 H Calcium 9.6 Troponin I POC Glucose 05/31/17 05/31/17 05/30/17 11:24 06:49 21:42 POC Glucose 135 H 200 H 128 H 05/30/17 16:47 POC Glucose 128 H Assessment/Plan This patient was seen in conjunction with SINDI Hidalgo. I have independently interviewed and examined the patient and reviewed pertinent historical, laboratory, and other data. Please refer to CURTIS Hidalgo for details of this patient's presentation, findings, and recommendations. I have reviewed Aida Romeo, ASSET PROTECTION ASSOCIATE-C note and concur with documented findings. In brief, Patient is an 76 lady who presented with AMS after a recent increase in her cymbalta Physical Examination: GENERAL: cooperative HEENT: Clear conjunctiva, NECK; supple, normal thyroid, CHEST: Clear to auscultation bilaterally HEART: Regular S1 S2, no audible murmurs ABDOMEN: soft, non-tender, normoactive bowel sounds, EXTREMITIES: No edema, no clubbing, no cyanosis. ENGINEERING AID: Awake, no lateralizing signs. SKIN: No rash Assessment: 1. Altered mental status, encephalopathy secondary to polypharmacy 2. Recent right lower extremity DVT- provoked following surgery on Xarelto. 3. Paroxysmal atrial fibrillation- 4. Atypical Chest pain-resolved. 5. Diabetes mellitus II 6. Hypertension-stable, 7. Dyslipidemia 8. Generalized osteoarthritis 9. Physical debility following recent right meniscus surgery Recommendations: 1. I have discussed the results of my overview and impressions with the patient 2. Options for management were reviewed Code Visit Inpatient E&M: 18164 Subs Hosp L3
[2017-05-31] MEDS: Rivaroxaban 15 MG Tablet PO (16:16)
[2017-05-31 16:40] LABS: Bedside Glucose 196 mg/dL (70-110)
[2017-05-31] MEDS: QUEtiapine 25 MG Tablet PO (21:10)
[2017-05-31 23:11] LABS: Bedside Glucose 174 mg/dL (70-110)
[2017-06-01] VITALS (12 sets, daily range): BP systolic 121–143; BP diastolic 66–78; PULSE 61–91; RESP 16–18; TEMP 36.3–36.9; O2SAT 95–99
[2017-06-01 07:06] LABS: Bedside Glucose 145 mg/dL (70-110)
[2017-06-01] MEDS: Nitrofurantoin Macrocrystals 100 MG Capsule PO ×2 (09:42→21:34)
[2017-06-01] MEDS: dilTIAZem CD 240 MG Capsule PO (09:42)
--- NOTE | 2017-06-01 10:01 | PCM.PROGNOTE ---
<Aida Walters - Last Filed: 06/01/17 10:07> Patient Problems: Active and Suspected Problems (Last Updated 04/23/17 @ 09:56 by Armida Neal) Altered mental status, unspecified (Acute) Right leg DVT (Acute) Subjective: Patient seen and examined. States she had nightmares overnight and did not sleep well. Nursing reports patient has remained alert and oriented. Mental status at baseline. Patient concerned that she is observation status and concern for paying for stay. CM notified and will discuss with patient. - Physical Exam General: Alert, Oriented x3, Cooperative, No apparent distress HEENT: Atraumatic, PERRLA, EOMI, Normocephalic Neck: Supple, No JVD, Negative Carotid Bruits Lungs: Clear to auscultation, Normal air movement Cardiovascular: Regular rate, Regular Rhythm, Normal S1, Normal S2, No murmurs Abdomen: Bowel Sounds Present, Soft, Non Tender, Non-Distended Extremities: No clubbing, No cyanosis, Capillary Refill Less than 3 Seconds, Edema - R knee Skin: No rashes, No breakdown, - - Right knee with diffuse ecchymosis Musculoskeletal: Tenderness - R knee Neurological: Cranial nerves II-XII grossly intact, Neuro grossly intact Psych/Mental Status: Normal Affect, Appropriate Vital Signs Temp Pulse Resp BP Pulse Ox 98.4 F 91 16 143/78 H 97 06/01/17 09:12 06/01/17 09:12 06/01/17 09:12 06/01/17 09:12 06/01/17 09:12 Oxygen Delivery Method Room Air Weight: 99.3 kg Body Mass Index (BMI) 38.7 Intake and Output for Last 24 Hours 05/30/17 05/31/17 06/01/17 23:59 23:59 23:59 Intake Total 392 / 392 1809 / 1809 500 / 500 Output Total 600 / 600 Balance 392 / 392 1209 / 1209 500 / 500 POC Glucose 06/01/17 05/31/17 05/31/17 06:59 21:12 16:14 POC Glucose 145 H 174 H 196 H 05/31/17 11:24 POC Glucose 135 H Medical Necessity - Tobacco Use Smoking Status: Never smoker Tobacco Use: Non-smoker Assessment/Plan Active and Suspected Problems (Last Updated 04/23/17 @ 09:56 by Armida Neal) Altered mental status, unspecified (Acute) Right leg DVT (Acute) Patient is a 76-year-old female admitted 05/30/17 due to altered mental status. She has a past medical history of hyperlipidemia, osteoarthritis, hypertension, type 2 diabetes mellitus, depression, anxiety, recent right knee meniscus surgery. 1. Altered mental status, suspected encephalopathy secondary to polypharmacy and/or UTI-patient states she recently had a few deaths in her family and has been having increased anxiety and depression. Her Cymbalta was increased by primary care physician to 60 mg daily and then decreased back to 30mg. Patient is a poor informant regarding her medications. She is also taking Ambien at night to help her sleep as well as Percocet as needed for pain in which she has received multiple recent prescriptions. She is also on Xanax at bedtime which she states she has been on for approximately 15-20 years. Patient states she has not been taking her medications for 1-2 weeks following surgery due to being out of sorts. She states she normally lays out her medication in a pill dispenser and has not been doing that since her recent surgery. She was started on Seroquel. Cymbalta on hold. Her mental status is now at baseline. Patient also diagnosed with UTI prior to admission and had completed 1 tablet of nitrofurantoin. UA and urine culture during admission unremarkable. Continue Macrobid for 5 days. TCU at [facility] pending pre-cert. Brain CT shows chronic changes. Chest x-ray shows no acute abnormality. 2. Chest pain-resolved. Suspected secondary to anxiety. Troponin negative. EKG without evidence of ischemia. 3. Physical debility status post recent right meniscal surgery-patient underwent right knee meniscal surgery 05/15/[address] Walker. Patient states she was told that she will need further repair due to incident prior to admission of patient crawling on knees. Continue outpatient follow-up. 4. Recent right lower extremity DVT-occurred following recent right meniscal surgery. Continue Xarelto. 5. Paroxysmal atrial fibrillation-currently sinus rhythm. Continue Cardizem and Xarelto. 6. Type 2 diabetes mellitus-home oral regimen on hold. Continue Accu-Cheks before meals at bedtime with sliding scale insulin. 7. Hypertension-stable, continue current regimen. 8. Hyperlipidemia-not on statin. 9. Osteoarthritis-PRN pain regimen. PT/OT. DVT prophylaxis-Xarelto. Discharge planning-TCU pending pre-cert. This patient was seen by SINDI Hidalgo under the supervision of Dr. Tirado. <Margarito Tirado - Last Filed: 06/01/17 12:23> - Physical Exam Vital Signs Temp Pulse Resp BP Pulse Ox 98.4 F 81 16 143/78 H 97 06/01/17 09:06 06/01/17 11:06 06/01/17 09:06 06/01/17 09:06 06/01/17 09:06 Oxygen Delivery Method Room Air Weight: 99.3 kg Body Mass Index (BMI) 38.7 Intake and Output for Last 24 Hours 05/30/17 05/31/17 06/01/17 23:59 23:59 23:59 Intake Total 392 / 392 1809 / 1809 980 / 980 Output Total 600 / 600 Balance 392 / 392 1209 / 1209 980 / 980 POC Glucose 06/01/17 06/01/17 05/31/17 11:08 06:59 21:12 POC Glucose 186 H 145 H 174 H 05/31/17 16:14 POC Glucose 196 H Assessment/Plan This patient was seen in conjunction with SINDI Hidalgo. I have independently interviewed and examined the patient and reviewed pertinent historical, laboratory, and other data. Please refer to Sophie Hidalgoote for details of this patient's presentation, findings, and recommendations. I have reviewed SINDI Hidalgo note and concur with documented findings. In brief, Patient is an 76 lady who presented with AMS after a recent increase in her cymbalta 06/01/2017: Awaiting precertification prior to transfer to [facility] facility Physical Examination: GENERAL: cooperative HEENT: Clear conjunctiva, NECK; supple, normal thyroid, CHEST: Clear to auscultation bilaterally HEART: Regular S1 S2, no audible murmurs ABDOMEN: soft, non-tender, normoactive bowel sounds, EXTREMITIES: No edema, no clubbing, no cyanosis. 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 SKIN: No rash Assessment: 1. Altered mental status, encephalopathy secondary to polypharmacy 2. Recent right lower extremity DVT- provoked following surgery on Xarelto. 3. Paroxysmal atrial fibrillation- 4. Atypical Chest pain-resolved. 5. Diabetes mellitus II 6. Hypertension-stable, 7. Dyslipidemia 8. Generalized osteoarthritis 9. Physical debility following recent right meniscus surgery Recommendations: 1. I have discussed the results of my overview and impressions with the patient 2. Options for management were reviewed Code Visit OBSV E&M: 99210 Subsequent observation care L3
--- NOTE | 2017-06-01 10:07 | PN_ITS ---
<Aida Walters - Last Filed: 06/01/17 10:07> Patient Problems: Active and Suspected Problems (Last Updated 04/23/17 @ 09:56 by Armida Neal ) Altered mental status, unspecified (Acute) Right leg DVT (Acute) Subjective: Patient seen and examined. States she had nightmares overnight and did not sleep well. Nursing reports patient has remained alert and oriented. Mental status at baseline. Patient concerned that she is observation status and concern for paying for stay. CM notified and will discuss with patient. - Physical Exam General: Alert, Oriented x3, Cooperative, No apparent distress HEENT: Atraumatic, PERRLA, EOMI, Normocephalic Neck: Supple, No JVD, Negative Carotid Bruits Lungs: Clear to auscultation, Normal air movement Cardiovascular: Regular rate, Regular Rhythm, Normal S1, Normal S2, No murmurs Abdomen: Bowel Sounds Present, Soft, Non Tender, Non-Distended Extremities: No clubbing, No cyanosis, Capillary Refill Less than 3 Seconds, Edema - R knee Skin: No rashes, No breakdown, - - Right knee with diffuse ecchymosis Musculoskeletal: Tenderness - R knee Neurological: Cranial nerves II-XII grossly intact, Neuro grossly intact Psych/Mental Status: Normal Affect, Appropriate Vital Signs Temp Pulse Resp BP Pulse Ox 98.4 F 91 16 143/78 H 97 06/01/17 09:12 06/01/17 09:12 06/01/17 09:12 06/01/17 09:12 06/01/17 09:12 Oxygen Delivery Method Room Air Weight: 99.3 kg Body Mass Index (BMI) 38.7 Intake and Output for Last 24 Hours 05/30/17 05/31/17 06/01/17 23:59 23:59 23:59 Intake Total 392 / 392 1809 / 1809 500 / 500 Output Total 600 / 600 Balance 392 / 392 1209 / 1209 500 / 500 POC Glucose 06/01/17 05/31/17 05/31/17 06:59 21:12 16:14 POC Glucose 145 H 174 H 196 H 05/31/17 11:24 POC Glucose 135 H Medical Necessity - Tobacco Use Smoking Status: Never smoker Tobacco Use: Non-smoker Assessment/Plan Active and Suspected Problems (Last Updated 04/23/17 @ 09:56 by Armida Neal ) Altered mental status, unspecified (Acute) Right leg DVT (Acute) Patient is a 76-year-old female admitted 05/30/17 due to altered mental status. She has a past medical history of hyperlipidemia, osteoarthritis, hypertension, type 2 diabetes mellitus, depression, anxiety, recent right knee meniscus surgery. 1. Altered mental status, suspected encephalopathy secondary to polypharmacy and/or UTI-patient states she recently had a few deaths in her family and has been having increased anxiety and depression. Her Cymbalta was increased by primary care physician to 60 mg daily and then decreased back to 30mg. Patient is a poor informant regarding her medications. She is also taking Ambien at night to help her sleep as well as Percocet as needed for pain in which she has received multiple recent prescriptions. She is also on Xanax at bedtime which she states she has been on for approximately 15-20 years. Patient states she has not been taking her medications for 1-2 weeks following surgery due to being out of sorts. She states she normally lays out her medication in a pill dispenser and has not been doing that since her recent surgery. She was started on Seroquel. Cymbalta on hold. Her mental status is now at baseline. Patient also diagnosed with UTI prior to admission and had completed 1 tablet of nitrofurantoin. UA and urine culture during admission unremarkable. Continue Macrobid for 5 days. TCU at [place] pending pre-cert. Brain CT shows chronic changes. Chest x-ray shows no acute abnormality. 2. Chest pain-resolved. Suspected secondary to anxiety. Troponin negative. EKG without evidence of ischemia. 3. Physical debility status post recent right meniscal surgery-patient underwent right knee meniscal surgery 05/15/[address] Walker. Patient states she was told that she will need further repair due to incident prior to admission of patient crawling on knees. Continue outpatient follow-up. 4. Recent right lower extremity DVT-occurred following recent right meniscal surgery. Continue Xarelto. 5. Paroxysmal atrial fibrillation-currently sinus rhythm. Continue Cardizem and Xarelto. 6. Type 2 diabetes mellitus-home oral regimen on hold. Continue Accu-Cheks before meals at bedtime with sliding scale insulin. 7. Hypertension-stable, continue current regimen. 8. Hyperlipidemia-not on statin. 9. Osteoarthritis-PRN pain regimen. PT/OT. DVT prophylaxis-Xarelto. Discharge planning-TCU pending pre-cert. This patient was seen by SINDI Hidalgo under the supervision of Dr. Tirado. <Margarito Tirado - Last Filed: 06/01/17 12:23> - Physical Exam Vital Signs Temp Pulse Resp BP Pulse Ox 98.4 F 81 16 143/78 H 97 06/01/17 09:06 06/01/17 11:06 06/01/17 09:06 06/01/17 09:06 06/01/17 09:06 Oxygen Delivery Method Room Air Weight: 99.3 kg Body Mass Index (BMI) 38.7 Intake and Output for Last 24 Hours 05/30/17 05/31/17 06/01/17 23:59 23:59 23:59 Intake Total 392 / 392 1809 / 1809 980 / 980 Output Total 600 / 600 Balance 392 / 392 1209 / 1209 980 / 980 POC Glucose 06/01/17 06/01/17 05/31/17 11:08 06:59 21:12 POC Glucose 186 H 145 H 174 H 05/31/17 16:14 POC Glucose 196 H Assessment/Plan This patient was seen in conjunction with SINDI Hidalgo. I have independently interviewed and examined the patient and reviewed pertinent historical, laboratory, and other data. Please refer to CURTIS Hidalgoote for details of this patient's presentation, findings, and recommendations. I have reviewed SINDI Hidalgo note and concur with documented findings. In brief, Patient is an 76 lady who presented with AMS after a recent increase in her cymbalta 06/01/2017: Awaiting precertification prior to transfer to [facility] Physical Examination: GENERAL: cooperative HEENT: Clear conjunctiva, NECK; supple, normal thyroid, CHEST: Clear to auscultation bilaterally HEART: Regular S1 S2, no audible murmurs ABDOMEN: soft, non-tender, normoactive bowel sounds, EXTREMITIES: No edema, no clubbing, no cyanosis. 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 SKIN: No rash Assessment: 1. Altered mental status, encephalopathy secondary to polypharmacy 2. Recent right lower extremity DVT- provoked following surgery on Xarelto. 3. Paroxysmal atrial fibrillation- 4. Atypical Chest pain-resolved. 5. Diabetes mellitus II 6. Hypertension-stable, 7. Dyslipidemia 8. Generalized osteoarthritis 9. Physical debility following recent right meniscus surgery Recommendations: 1. I have discussed the results of my overview and impressions with the patient 2. Options for management were reviewed Code Visit OBSV E&M: 54120 Subsequent observation care L3
[2017-06-01] MEDS: oxyCODONE 5 MG Tablet PO ×2 (11:05→19:14)
[2017-06-01 11:16] LABS: Bedside Glucose 186 mg/dL (70-110)
--- NOTE | 2017-06-01 11:20 | NURSING ---
Called report to Ann GANDHI on [facility].
--- NOTE | 2017-06-01 11:46 | NURSING ---
Reviewed and agreed on all charting with Stanford Cueva RN
[2017-06-01] MEDS: Acetaminophen 325 MG Tablet 650 MG PO ×2 (12:40→20:00)
[2017-06-01 13:56] LABS: Bedside Glucose 163 mg/dL (70-110)
[2017-06-01] MEDS: Rivaroxaban 15 MG Tablet PO (17:15)
[2017-06-01 17:20] LABS: Bedside Glucose 224 mg/dL (70-110)
[2017-06-01] MEDS: QUEtiapine 25 MG Tablet PO (21:34)
[2017-06-01 21:41] LABS: Bedside Glucose 170 mg/dL (70-110)
[2017-06-02] VITALS (10 sets, daily range): BP systolic 131–153; BP diastolic 70–78; PULSE 57–78; RESP 18; TEMP 36.3–37.1; O2SAT 96–98
[2017-06-02] MEDS: oxyCODONE 5 MG Tablet PO ×3 (02:09→20:07)
[2017-06-02 06:51] LABS: Bedside Glucose 154 mg/dL (70-110)
--- NOTE | 2017-06-02 08:02 | PCM.PN.HOSP ---
Patient Problems: Active and Suspected Problems (Last Updated 04/23/17 @ 09:56 by Armida Neal) Altered mental status, unspecified (Acute) Right leg DVT (Acute) Subjective: Patient is an 76 year old lady who presented with AMS after a recent increase in her cymbalta Objective: Physical Examination: GENERAL: cooperative HEENT: Clear conjunctiva, NECK; supple, normal thyroid, CHEST: Clear to auscultation bilaterally HEART: Regular S1 S2, no audible murmurs ABDOMEN: soft, non-tender, normoactive bowel sounds, EXTREMITIES: No edema, no clubbing, no cyanosis. CLINIC OFFICE MANAGER: Awake, no lateralizing signs. SKIN: No rash Vitals/I&O's: Vital Signs Temp Pulse Resp BP Pulse Ox 97.3 F L 57 L 18 142/70 H 97 06/02/17 02:05 06/02/17 07:50 06/02/17 02:05 06/02/17 02:05 06/02/17 02:05 Oxygen Delivery Method Room Air Weight: 99.3 kg Body Mass Index (BMI) 38.7 Intake and Output for Last 24 Hours 05/31/17 06/01/17 06/02/17 23:59 23:59 23:59 Intake Total 1809 / 1809 1430 / 1430 440 / 440 Output Total 600 / 600 Balance 1209 / 1209 1430 / 1430 440 / 440 Laboratory Results 06/01/17 11:08: POC Glucose 186 H 06/01/17 13:46: POC Glucose 163 H 06/01/17 17:14: POC Glucose 224 H 06/01/17 21:33: POC Glucose 170 H 06/02/17 06:40: POC Glucose 154 H Current Medications Acetaminophen (Tylenol) 650 mg PO Q6H PRN PRN PRN Reason: PAIN Last Admin: 06/01/17 20:00 Dose: 650 mg Dextrose (D50w Syringe) 0 gm IV X1 PRN; Protocol PRN Reason: Hypoglycemia Diltiazem HCl (Cardizem Cd) 240 mg PO DAILY [facility] Last Admin: 06/01/17 09:42 Dose: 240 mg Glucagon () 1 mg IM .X1 PRN PRN Reason: Hypoglycemia Insulin Aspart (Novolog Flexpen (Bkc)) 0 units SC ACHS PRO PRN Reason: Protocol Last Admin: 06/02/17 06:42 Dose: 2 units Magnesium Hydroxide (Milk Of Magnesia) 30 ml PO DAILY PRN PRN PRN Reason: Constipation Nitrofurantoin Macrocrystals (Macrobid) 100 mg PO BID [facility] Last Admin: 06/01/17 21:34 Dose: 100 mg Oxycodone HCl (Oxyir) 0 mg PO Q6H PRN PRN Reason: MOD-SEVERE PAIN (4-10/10) Last Admin: 06/02/17 02:09 Dose: 5 mg Quetiapine Fumarate (Seroquel) 25 mg PO QHS [facility] Last Admin: 06/01/17 21:34 Dose: 25 mg Rivaroxaban (Xarelto) 15 mg PO SUPPER [facility] Stop: 06/19/17 17:01 Last Admin: 06/01/17 17:15 Dose: 15 mg Sodium Chloride () 5 - 30 ml IV UD PRN PRN Reason: SALINE FLUSH Medical Necessity - Tobacco Use Smoking Status: Never smoker Tobacco Use: Non-smoker Assessment/Plan Active and Suspected Problems (Last Updated 04/23/17 @ 09:56 by Armida Neal) Altered mental status, unspecified (Acute) Right leg DVT (Acute) In brief, Patient is an 76 lady who presented with AMS after a recent increase in her cymbalta 1. Altered mental status, encephalopathy secondary to polypharmacy : resolved 2. Recent right lower extremity DVT- provoked following surgery on Xarelto. 3. Paroxysmal atrial fibrillation-rate controlled on systemic anticoagulation with Xarelto 4. Atypical Chest pain-resolved. 5. Diabetes mellitus II: Patient oral regimen held placed and Accu-Cheks before meals and at bedtime as well as 1800 ADA diet 6. Hypertension-stable, 7. Dyslipidemia 8. Generalized osteoarthritis 9. Physical debility following recent right meniscus surgery; PT OT eval and treatment and home health care social worker to assist with disposition possibly to longterm facility pending insurance precertification 10. DVT prophylaxis on Xarelto note further management indicated Code Visit OBSV E&M: 06738 Subsequent observation care L2
[2017-06-02] MEDS: Nitrofurantoin Macrocrystals 100 MG Capsule PO ×2 (08:03→21:14)
[2017-06-02] MEDS: dilTIAZem CD 240 MG Capsule PO (08:03)
--- NOTE | 2017-06-02 08:13 | PN_ITS ---
Patient Problems: Active and Suspected Problems (Last Updated 04/23/17 @ 09:56 by Armida Neal ) Altered mental status, unspecified (Acute) Right leg DVT (Acute) Subjective: Patient is an 76 year old lady who presented with AMS after a recent increase in her cymbalta Objective: Physical Examination: GENERAL: cooperative HEENT: Clear conjunctiva, NECK; supple, normal thyroid, CHEST: Clear to auscultation bilaterally HEART: Regular S1 S2, no audible murmurs ABDOMEN: soft, non-tender, normoactive bowel sounds, EXTREMITIES: No edema, no clubbing, no cyanosis. 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 SKIN: No rash Vitals/I&O's: Vital Signs Temp Pulse Resp BP Pulse Ox 97.3 F L 57 L 18 142/70 H 97 06/02/17 02:05 06/02/17 07:50 06/02/17 02:05 06/02/17 02:05 06/02/17 02:05 Oxygen Delivery Method Room Air Weight: 99.3 kg Body Mass Index (BMI) 38.7 Intake and Output for Last 24 Hours 05/31/17 06/01/17 06/02/17 23:59 23:59 23:59 Intake Total 1809 / 1809 1430 / 1430 440 / 440 Output Total 600 / 600 Balance 1209 / 1209 1430 / 1430 440 / 440 Laboratory Results 06/01/17 11:08: POC Glucose 186 H 06/01/17 13:46: POC Glucose 163 H 06/01/17 17:14: POC Glucose 224 H 06/01/17 21:33: POC Glucose 170 H 06/02/17 06:40: POC Glucose 154 H Current Medications Acetaminophen (Tylenol) 650 mg PO Q6H PRN PRN PRN Reason: PAIN Last Admin: 06/01/17 20:00 Dose: 650 mg Dextrose (D50w Syringe) 0 gm IV X1 PRN; Protocol PRN Reason: Hypoglycemia Diltiazem HCl (Cardizem Cd) 240 mg PO DAILY [facility] Last Admin: 06/01/17 09:42 Dose: 240 mg Glucagon () 1 mg IM .X1 PRN PRN Reason: Hypoglycemia Insulin Aspart (Novolog Flexpen (Bkc)) 0 units SC ACHS PRO PRN Reason: Protocol Last Admin: 06/02/17 06:42 Dose: 2 units Magnesium Hydroxide (Milk Of Magnesia) 30 ml PO DAILY PRN PRN PRN Reason: Constipation Nitrofurantoin Macrocrystals (Macrobid) 100 mg PO BID [facility] Last Admin: 06/01/17 21:34 Dose: 100 mg Oxycodone HCl (Oxyir) 0 mg PO Q6H PRN PRN Reason: MOD-SEVERE PAIN (4-10/10) Last Admin: 06/02/17 02:09 Dose: 5 mg Quetiapine Fumarate (Seroquel) 25 mg PO QHS [facility] Last Admin: 06/01/17 21:34 Dose: 25 mg Rivaroxaban (Xarelto) 15 mg PO SUPPER [facility] Stop: 06/19/17 17:01 Last Admin: 06/01/17 17:15 Dose: 15 mg Sodium Chloride () 5 - 30 ml IV UD PRN PRN Reason: SALINE FLUSH Medical Necessity - Tobacco Use Smoking Status: Never smoker Tobacco Use: Non-smoker Assessment/Plan Active and Suspected Problems (Last Updated 04/23/17 @ 09:56 by Armida Neal ) Altered mental status, unspecified (Acute) Right leg DVT (Acute) In brief, Patient is an 76 lady who presented with AMS after a recent increase in her cymbalta 1. Altered mental status, encephalopathy secondary to polypharmacy : resolved 2. Recent right lower extremity DVT- provoked following surgery on Xarelto. 3. Paroxysmal atrial fibrillation-rate controlled on systemic anticoagulation with Xarelto 4. Atypical Chest pain-resolved. 5. Diabetes mellitus II: Patient oral regimen held placed and Accu-Cheks before meals and at bedtime as well as 1800 ADA diet 6. Hypertension-stable, 7. Dyslipidemia 8. Generalized osteoarthritis 9. Physical debility following recent right meniscus surgery; PT OT eval and treatment and social media community manager to assist with disposition possibly to alf facility pending insurance precertification 10. DVT prophylaxis on Xarelto note further management indicated Code Visit OBSV E&M: 90896 Subsequent observation care L2
[2017-06-02 11:41] LABS: Bedside Glucose 274 mg/dL (70-110)
[2017-06-02] MEDS: Acetaminophen 325 MG Tablet 650 MG PO ×2 (13:50→21:20)
[2017-06-02] MEDS: Rivaroxaban 15 MG Tablet PO (16:48)
[2017-06-02 16:56] LABS: Bedside Glucose 169 mg/dL (70-110)
[2017-06-02] MEDS: QUEtiapine 25 MG Tablet PO (21:14)
[2017-06-02 21:25] LABS: Bedside Glucose 191 mg/dL (70-110)
[2017-06-03 03:00] VITALS: PULSE 66
[2017-06-03 03:14] VITALS: BP 152/73; PULSE 66; RESP 16; TEMP 36.7; O2SAT 98
[2017-06-03] MEDS: oxyCODONE 5 MG Tablet PO ×3 (03:18→21:44)
[2017-06-03 06:36] LABS: Bedside Glucose 189 mg/dL (70-110)
--- NOTE | 2017-06-03 09:43 | PCM.EXTCARCO ---
<Omid Waltersssica - Last Filed: 06/03/17 09:50> - Diet 05/31/17 10:40 Diet: Regular Diet Is pt able to select menu?: Yes - Routine Orders/Code Status Suppository Type: Dulcolax 10mg Suppository Frequency: Daily PRN Routine Lab Work: CBC, BMP, - - Q Week Code Status: Full Code - Wound(s) RIGHT KNEE Wound Type: Surgical Incision - Suggestions for Active Care Change Position every (hours): 2 Times a day to sit in chair: 3 - Therapies Weight Bearing: Weight bearing as tolerated Extremity Affected:: Right Lower Physical Therapy: Eval and Treat Occupational Therapy: Eval and Treat - Allergies/Procedures Done in Hospital Allergies/Adverse Reactions: Allergies ramelteon [From Rozerem] Allergy (Verified 05/30/17 09:30) Other bupropion Adverse Reaction (Verified 05/30/17 09:30) Other UNKNOWN bupropion HCl [From Wellbutrin] Adverse Reaction (Verified 05/30/17 09:30) Other UNKNOWN dexfenfluramine HCl [From Redux] Adverse Reaction (Verified 05/30/17 09:30) Unknown hydrochlorothiazide Adverse Reaction (Verified 05/30/17 09:30) Other UNKNOWN ketorolac tromethamine [From Toradol] Adverse Reaction (Verified 05/30/17 09:30) Itching oxaprozin [From Daypro] Adverse Reaction (Verified 05/30/17 09:30) Other UNKNOWN Procedures: None - Type of Care/Length of Stay Estimated LOS: Convalescent Care Less Than 30 days Type of Care Needed: Skilled Rehab Potential: Good Prognosis: Good - Additional Orders/Day of Discharge H&P will serve as current which was dated: 05/30/17 Day of Discharge: 06/03/17 - Follow Up Care Primary Care Physician: Luanne Aquino MD [Primary Care Provider] - Please follow up with your Primary Care Physician in: 1 Week Please Follow Up With: Mendy Walker DO When: 1 Week <Nathaniel Cuellar - Last Filed: 06/03/17 11:11> - Diet 05/31/17 10:40 Diet: Regular Diet Is pt able to select menu?: Yes - Routine Orders/Code Status Suppository Type: Dulcolax 10mg Suppository Frequency: Daily PRN Routine Lab Work: CBC, BMP, - - Wound(s) RIGHT KNEE Wound Type: Surgical Incision - Therapies Physical Therapy: Eval and Treat Occupational Therapy: Eval and Treat - Allergies/Procedures Done in Hospital Procedures: None - Type of Care/Length of Stay Estimated LOS: Convalescent Care Less Than 30 days Type of Care Needed: Skilled Rehab Potential: Good Prognosis: Good
--- NOTE | 2017-06-03 09:50 | PCM.DC.SUM ---
<Aida Walters - Last Filed: 06/03/17 09:57> Discharge Date and Diagnosis Date of Admission: 05/30/17 Date of Discharge: 06/03/17 - Primary Discharge Diagnosis Active and Suspected Problems (Last Updated 04/23/17 @ 09:56 by Armida Neal) 1. Altered mental status, acute encephalopathy secondary to polypharmacy 2. Chest pain-ACS ruled out. 3. Physical debility status post recent right meniscal surgery 4. Recent right lower extremity DVT - Secondary Discharge Diagnosis Chronic Problems (Last Updated 04/23/17 @ 09:56 by rAmida Neal) Right knee meniscus surgery (Chronic) Hyperlipidemia (Chronic) Osteoarthritis (Chronic) Hypertension (Chronic) Type 2 diabetes mellitus (Chronic) Hospital Course and Treatment Imaging Results: Diagnostic Data Chest X-Ray 05/30/17 09:37 IMPRESSION: No acute abnormality is present. Electronically Signed: Uvaldo Biswas MD at 11:23 EDT Tel [phone], Service support , Brain CT 05/30/17 10:42 IMPRESSION: Chronic involutional changes of the brain. There is opacification of the sphenoid sinus bilaterally. Electronically Signed: Uvaldo Biswas MD at 11:52 EDT Tel [phone], Service support , Operations: None Procedures: None Summary of Care Provided: Patient is a 76-year-old female admitted 05/30/17 due to altered mental status. She has a past medical history of hyperlipidemia, osteoarthritis, hypertension, type 2 diabetes mellitus, depression, anxiety, recent right knee meniscus surgery. 1. Altered mental status, suspected encephalopathy secondary to polypharmacy-patient states she recently had a few deaths in her family and has been having increased anxiety and depression. Her Cymbalta was increased by primary care physician to 60 mg daily and then decreased back to 30mg. Patient is a poor informant regarding her medications. She is also taking Ambien at night to help her sleep as well as Percocet as needed for pain in which she has received multiple recent prescriptions. She is also on Xanax at bedtime which she states she has been on for approximately 15-20 years. Patient states she has not been taking her medications for 1-2 weeks following surgery due to being out of sorts. She states she normally lays out her medication in a pill dispenser and has not been doing that since her recent surgery. She was started on Seroquel. Cymbalta discontinued. Her mental status is now at baseline. Patient also diagnosed with UTI prior to admission, she completed course of nitrofurantoin. UA and urine culture during admission unremarkable. Brain CT shows chronic changes. Chest x-ray shows no acute abnormality. Ambien is not listed on patient's home medication regimen although she states she takes at home. Recommend discontinuing Ambien at discharge. 2. Chest pain-resolved. Suspected secondary to anxiety. Troponin negative. EKG without evidence of ischemia. 3. Physical debility status post recent right meniscal surgery-patient underwent right knee meniscal surgery 05/15/[address] Walker. Patient states she was told that she will need further repair due to incident prior to admission of patient crawling on knees. Continue outpatient follow-up. TCU at discharge. 4. Recent right lower extremity DVT-occurred following recent right meniscal surgery. Continue Xarelto. 5. Paroxysmal atrial fibrillation-currently sinus rhythm. Continue Cardizem and Xarelto. 6. Type 2 diabetes mellitus-continue home oral regimen. 7. Hypertension-stable, continue current regimen. 8. Hyperlipidemia-not on statin. 9. Osteoarthritis-PRN pain regimen. PT/OT. General: Alert, Oriented x3, Cooperative, No apparent distress HEENT: Atraumatic, PERRLA, EOMI, Normocephalic Neck: Supple, No JVD, Negative Carotid Bruits Lungs: Clear to auscultation, Normal air movement Cardiovascular: Regular rate, Regular Rhythm, Normal S1, Normal S2, No murmurs Abdomen: Bowel Sounds Present, Soft, Non Tender, Non-Distended Extremities: No clubbing, No cyanosis, Capillary Refill Less than 3 Seconds, Edema - R knee Skin: No rashes, No breakdown, - - Right knee with diffuse ecchymosis Musculoskeletal: Tenderness - R knee Neurological: Cranial nerves II-XII grossly intact, Neuro grossly intact Psych/Mental Status: Normal Affect, Appropriate Patient seen and examined prior to discharge. Physical assessment as noted above. Patient is stable for discharge to TCU. This patient was seen by SINDI Hidalgo under the supervision of Dr. Cuellar. Home Medications: Medications to take at Discharge ALPRAZolam [Xanax] 0.5 mg PO QHS 12/11/13 Diltiazem CD [Cardizem CD] 240 mg PO DAILY 12/11/13 Canagliflozin [Invokana] 300 mg PO DAILY 09/12/16 Oxycodone HCl/Acetaminophen [Percocet 5-325] 1 - 2 tablet PO Q6H PRN PRN #56 tablet 05/15/17 Rivaroxaban [Xarelto] 15 mg PO QPM 05/30/17 Sitagliptin Phosphate [Januvia] 100 mg PO DAILY 05/30/17 Quetiapine Fumarate [Seroquel] 25 mg PO QHS tablet 06/03/17 Primary Care Physician: Luanne Aquino MD [Primary Care Provider] - Please follow up with your Primary Care Physician in: 1 Week Please Follow Up With: Mendy Walker DO When: 1 Week Disposition: Detention facility Minutes spent on discharge:: 35 Patient Condition:: Stable Medical Necessity - Tobacco Use Smoking Status: Never smoker Tobacco Use: Non-smoker Meaningful Use Info Meaningful Use Diagnoses (Choose all that apply): None applicable <Nathaniel Cuellar - Last Filed: 06/03/17 11:10> Discharge Date and Diagnosis - Secondary Discharge Diagnosis Chronic Problems (Last Updated 04/23/17 @ 09:56 by Armida Neal) Right knee meniscus surgery (Chronic) Hyperlipidemia (Chronic) Osteoarthritis (Chronic) Hypertension (Chronic) Type 2 diabetes mellitus (Chronic) Hospital Course and Treatment Operations: None Procedures: None Summary of Care Provided: The patient is a 76 year old F [] Discharge Diet: No Restrictions Discharge Activity: Return to Normal Activity Call your doctor if you observe: Fever of 101 or Higher, Shortness of breath Disposition: Detention facility Minutes spent on discharge:: 35 Patient Condition:: Stable Medical Necessity - Tobacco Use Smoking Status: Never smoker Tobacco Use: Non-smoker Meaningful Use Info Meaningful Use Diagnoses (Choose all that apply): None applicable Code Visit Inpatient E&M: 23983 Disch Hosp
--- NOTE | 2017-06-03 09:57 | DS.PCM_ITS ---
<Aida Walters - Last Filed: 06/03/17 09:57> Discharge Date and Diagnosis Date of Admission: 05/30/17 Date of Discharge: 06/03/17 - Primary Discharge Diagnosis Active and Suspected Problems (Last Updated 04/23/17 @ 09:56 by Armida Neal ) 1. Altered mental status, acute encephalopathy secondary to polypharmacy 2. Chest pain-ACS ruled out. 3. Physical debility status post recent right meniscal surgery 4. Recent right lower extremity DVT - Secondary Discharge Diagnosis Chronic Problems (Last Updated 04/23/17 @ 09:56 by Armida Neal) Right knee meniscus surgery (Chronic) Hyperlipidemia (Chronic) Osteoarthritis (Chronic) Hypertension (Chronic) Type 2 diabetes mellitus (Chronic) Hospital Course and Treatment Imaging Results: Diagnostic Data Chest X-Ray 05/30/17 09:37 IMPRESSION: No acute abnormality is present. Electronically Signed: Uvaldo Biswas MD at 11:23 EDT Tel [phone], Service support , Brain CT 05/30/17 10:42 IMPRESSION: Chronic involutional changes of the brain. There is opacification of the sphenoid sinus bilaterally. Electronically Signed: Uvaldo Biswas MD at 11:52 EDT Tel [phone], Service support , Operations: None Procedures: None Summary of Care Provided: Patient is a 76-year-old female admitted 05/30/17 due to altered mental status. She has a past medical history of hyperlipidemia, osteoarthritis, hypertension, type 2 diabetes mellitus, depression, anxiety, recent right knee meniscus surgery. 1. Altered mental status, suspected encephalopathy secondary to polypharmacy- patient states she recently had a few deaths in her family and has been having increased anxiety and depression. Her Cymbalta was increased by primary care physician to 60 mg daily and then decreased back to 30mg. Patient is a poor informant regarding her medications. She is also taking Ambien at night to help her sleep as well as Percocet as needed for pain in which she has received multiple recent prescriptions. She is also on Xanax at bedtime which she states she has been on for approximately 15-20 years. Patient states she has not been taking her medications for 1-2 weeks following surgery due to being out of sorts. She states she normally lays out her medication in a pill dispenser and has not been doing that since her recent surgery. She was started on Seroquel. Cymbalta discontinued. Her mental status is now at baseline. Patient also diagnosed with UTI prior to admission, she completed course of nitrofurantoin. UA and urine culture during admission unremarkable. Brain CT shows chronic changes. Chest x-ray shows no acute abnormality. Ambien is not listed on patient's home medication regimen although she states she takes at home. Recommend discontinuing Ambien at discharge. 2. Chest pain-resolved. Suspected secondary to anxiety. Troponin negative. EKG without evidence of ischemia. 3. Physical debility status post recent right meniscal surgery-patient underwent right knee meniscal surgery 05/15/[address] Walker. Patient states she was told that she will need further repair due to incident prior to admission of patient crawling on knees. Continue outpatient follow-up. TCU at discharge. 4. Recent right lower extremity DVT-occurred following recent right meniscal surgery. Continue Xarelto. 5. Paroxysmal atrial fibrillation-currently sinus rhythm. Continue Cardizem and Xarelto. 6. Type 2 diabetes mellitus-continue home oral regimen. 7. Hypertension-stable, continue current regimen. 8. Hyperlipidemia-not on statin. 9. Osteoarthritis-PRN pain regimen. PT/OT. General: Alert, Oriented x3, Cooperative, No apparent distress HEENT: Atraumatic, PERRLA, EOMI, Normocephalic Neck: Supple, No JVD, Negative Carotid Bruits Lungs: Clear to auscultation, Normal air movement Cardiovascular: Regular rate, Regular Rhythm, Normal S1, Normal S2, No murmurs Abdomen: Bowel Sounds Present, Soft, Non Tender, Non-Distended Extremities: No clubbing, No cyanosis, Capillary Refill Less than 3 Seconds, Edema - R knee Skin: No rashes, No breakdown, - - Right knee with diffuse ecchymosis Musculoskeletal: Tenderness - R knee Neurological: Cranial nerves II-XII grossly intact, Neuro grossly intact Psych/Mental Status: Normal Affect, Appropriate Patient seen and examined prior to discharge. Physical assessment as noted above. Patient is stable for discharge to TCU. This patient was seen by SINDI Hidalgo under the supervision of Dr. Cuellar. Home Medications: Medications to take at Discharge ALPRAZolam [Xanax] 0.5 mg PO QHS 12/11/13 Diltiazem CD [Cardizem CD] 240 mg PO DAILY 12/11/13 Canagliflozin [Invokana] 300 mg PO DAILY 09/12/16 Oxycodone HCl/Acetaminophen [Percocet 5-325] 1 - 2 tablet PO Q6H PRN PRN #56 tablet 05/15/17 Rivaroxaban [Xarelto] 15 mg PO QPM 05/30/17 Sitagliptin Phosphate [Januvia] 100 mg PO DAILY 05/30/17 Quetiapine Fumarate [Seroquel] 25 mg PO QHS tablet 06/03/17 Primary Care Physician: Luanne Aquino MD [Primary Care Provider] - Please follow up with your Primary Care Physician in: 1 Week Please Follow Up With: Mendy Walker DO When: 1 Week Disposition: Correction facility Minutes spent on discharge:: 35 Patient Condition:: Stable Medical Necessity - Tobacco Use Smoking Status: Never smoker Tobacco Use: Non-smoker Meaningful Use Info Meaningful Use Diagnoses (Choose all that apply): None applicable <Nathaniel Cuellar - Last Filed: 06/03/17 11:10> Discharge Date and Diagnosis - Secondary Discharge Diagnosis Chronic Problems (Last Updated 04/23/17 @ 09:56 by Armida Neal) Right knee meniscus surgery (Chronic) Hyperlipidemia (Chronic) Osteoarthritis (Chronic) Hypertension (Chronic) Type 2 diabetes mellitus (Chronic) Hospital Course and Treatment Operations: None Procedures: None Summary of Care Provided: The patient is a 76 year old F [] Discharge Diet: No Restrictions Discharge Activity: Return to Normal Activity Call your doctor if you observe: Fever of 101 or Higher, Shortness of breath Disposition: [facility] facility Minutes spent on discharge:: 35 Patient Condition:: Stable Medical Necessity - Tobacco Use Smoking Status: Never smoker Tobacco Use: Non-smoker Meaningful Use Info Meaningful Use Diagnoses (Choose all that apply): None applicable Code Visit Inpatient E&M: 01390 Disch Hosp
--- NOTE | 2017-06-03 09:58 | PCM.PROGNOTE ---
<Aida Walters - Last Filed: 06/03/17 10:02> Subjective: Patient seen and examined. Nursing reports no further confusion. Patient is anxious to be discharged to transitional care unit. Therapy apparently did not see patient over the weekend and patient states she has just been laying in bed. Denies other complaints. - Physical Exam General: Alert, Oriented x3, Cooperative, No apparent distress HEENT: Atraumatic, PERRLA, EOMI, Normocephalic Neck: Supple, No JVD, Negative Carotid Bruits Lungs: Clear to auscultation, Normal air movement Cardiovascular: Regular rate, Regular Rhythm, Normal S1, Normal S2, No murmurs Abdomen: Bowel Sounds Present, Soft, Non Tender, Non-Distended Extremities: No clubbing, No cyanosis, Edema - Right knee Skin: No rashes, No breakdown, - - Right knee with diffuse ecchymosis Musculoskeletal: Tenderness - Right knee Neurological: Cranial nerves II-XII grossly intact Psych/Mental Status: Normal Affect, Appropriate Vital Signs Temp Pulse Resp BP Pulse Ox 98.1 F 66 16 152/73 H 98 06/03/17 03:14 06/03/17 03:14 06/03/17 03:14 06/03/17 03:14 06/03/17 03:14 Oxygen Delivery Method Room Air Weight: 99.3 kg Body Mass Index (BMI) 38.7 Intake and Output for Last 24 Hours 06/01/17 06/02/17 06/03/17 23:59 23:59 23:59 Intake Total 1430 / 1430 1930 / 1930 150 / 150 Balance 1430 / 1430 1930 / 1930 150 / 150 POC Glucose 06/03/17 06/02/17 06/02/17 06:29 21:16 16:45 POC Glucose 189 H 191 H 169 H 06/02/17 11:15 POC Glucose 274 H Medical Necessity - Tobacco Use Smoking Status: Never smoker Tobacco Use: Non-smoker Assessment/Plan Patient is a 76-year-old female admitted 05/30/17 due to altered mental status. She has a past medical history of hyperlipidemia, osteoarthritis, hypertension, type 2 diabetes mellitus, depression, anxiety, recent right knee meniscus surgery. 1. Altered mental status, suspected encephalopathy secondary to polypharmacy and/or UTI-patient states she recently had a few deaths in her family and has been having increased anxiety and depression. Her Cymbalta was increased by primary care physician to 60 mg daily and then decreased back to 30mg. Patient is a poor informant regarding her medications. She is also taking Ambien at night to help her sleep as well as Percocet as needed for pain in which she has received multiple recent prescriptions. She is also on Xanax at bedtime which she states she has been on for approximately 15-20 years. Patient states she has not been taking her medications for 1-2 weeks following surgery due to being out of sorts. She states she normally lays out her medication in a pill dispenser and has not been doing that since her recent surgery. She was started on Seroquel. Cymbalta on hold. Her mental status is now at baseline. Patient also diagnosed with UTI prior to admission and completed 5 day course of nitrofurantoin. UA and urine culture during admission unremarkable. TCU at [place] pending pre-cert. Brain CT shows chronic changes. Chest x-ray shows no acute abnormality. 2. Chest pain-resolved. Suspected secondary to anxiety. Troponin negative. EKG without evidence of ischemia. 3. Physical debility status post recent right meniscal surgery-patient underwent right knee meniscal surgery 05/15/[address] Walker. Patient states she was told that she will need further repair due to incident prior to admission of patient crawling on knees. Continue outpatient follow-up. 4. Recent right lower extremity DVT-occurred following recent right meniscal surgery. Continue Xarelto. 5. Paroxysmal atrial fibrillation-currently sinus rhythm. Continue Cardizem and Xarelto. 6. Type 2 diabetes mellitus-home oral regimen on hold. Continue Accu-Cheks before meals at bedtime with sliding scale insulin. 7. Hypertension-stable, continue current regimen. 8. Hyperlipidemia-not on statin. 9. Osteoarthritis-PRN pain regimen. PT/OT. DVT prophylaxis-Xarelto. Discharge planning-TCU pending pre-cert. This patient was seen by SINDI Hidalgo under the supervision of Dr. Cuellar. <Nathaniel Cuellar - Last Filed: 06/03/17 11:09> - Physical Exam General: Alert, No apparent distress HEENT: Atraumatic, Normocephalic Extremities: No clubbing, No edema Skin: No rashes, No breakdown Vital Signs Temp Pulse Resp BP Pulse Ox 36.6 C 70 18 139/82 H 97 06/03/17 10:37 06/03/17 10:37 06/03/17 10:37 06/03/17 10:37 06/03/17 10:37 Oxygen Delivery Method Room Air Weight: 99.3 kg Body Mass Index (BMI) 38.7 Intake and Output for Last 24 Hours 06/01/17 06/02/17 06/03/17 23:59 23:59 23:59 Intake Total 1430 / 1430 1930 / 1930 150 / 150 Balance 1430 / 1430 1930 / 1930 150 / 150 POC Glucose 06/03/17 06/02/17 06/02/17 06:29 21:16 16:45 POC Glucose 189 H 191 H 169 H 06/02/17 11:15 POC Glucose 274 H Medical Necessity - Tobacco Use Smoking Status: Never smoker Tobacco Use: Non-smoker Assessment/Plan Patient seen and examined independently. I agree with above note by the NPO 1. Toxic encephalopathy: 2/2 polypharmacy (percocet, ambien, cymbalta and xanax). 2. debility: awaiting on precertification for placement, once obtained, patient can be discharged. Code Visit Inpatient E&M: 72229 Subs Hosp L2
--- NOTE | 2017-06-03 10:02 | PN_ITS ---
<Aida Walters - Last Filed: 06/03/17 10:02> Subjective: Patient seen and examined. Nursing reports no further confusion. Patient is anxious to be discharged to transitional care unit. Therapy apparently did not see patient over the weekend and patient states she has just been laying in bed . Denies other complaints. - Physical Exam General: Alert, Oriented x3, Cooperative, No apparent distress HEENT: Atraumatic, PERRLA, EOMI, Normocephalic Neck: Supple, No JVD, Negative Carotid Bruits Lungs: Clear to auscultation, Normal air movement Cardiovascular: Regular rate, Regular Rhythm, Normal S1, Normal S2, No murmurs Abdomen: Bowel Sounds Present, Soft, Non Tender, Non-Distended Extremities: No clubbing, No cyanosis, Edema - Right knee Skin: No rashes, No breakdown, - - Right knee with diffuse ecchymosis Musculoskeletal: Tenderness - Right knee Neurological: Cranial nerves II-XII grossly intact Psych/Mental Status: Normal Affect, Appropriate Vital Signs Temp Pulse Resp BP Pulse Ox 98.1 F 66 16 152/73 H 98 06/03/17 03:14 06/03/17 03:14 06/03/17 03:14 06/03/17 03:14 06/03/17 03:14 Oxygen Delivery Method Room Air Weight: 99.3 kg Body Mass Index (BMI) 38.7 Intake and Output for Last 24 Hours 06/01/17 06/02/17 06/03/17 23:59 23:59 23:59 Intake Total 1430 / 1430 1930 / 1930 150 / 150 Balance 1430 / 1430 1930 / 1930 150 / 150 POC Glucose 06/03/17 06/02/17 06/02/17 06:29 21:16 16:45 POC Glucose 189 H 191 H 169 H 06/02/17 11:15 POC Glucose 274 H Medical Necessity - Tobacco Use Smoking Status: Never smoker Tobacco Use: Non-smoker Assessment/Plan Patient is a 76-year-old female admitted 05/30/17 due to altered mental status. She has a past medical history of hyperlipidemia, osteoarthritis, hypertension, type 2 diabetes mellitus, depression, anxiety, recent right knee meniscus surgery. 1. Altered mental status, suspected encephalopathy secondary to polypharmacy and/or UTI-patient states she recently had a few deaths in her family and has been having increased anxiety and depression. Her Cymbalta was increased by primary care physician to 60 mg daily and then decreased back to 30mg. Patient is a poor informant regarding her medications. She is also taking Ambien at night to help her sleep as well as Percocet as needed for pain in which she has received multiple recent prescriptions. She is also on Xanax at bedtime which she states she has been on for approximately 15-20 years. Patient states she has not been taking her medications for 1-2 weeks following surgery due to being out of sorts. She states she normally lays out her medication in a pill dispenser and has not been doing that since her recent surgery. She was started on Seroquel. Cymbalta on hold. Her mental status is now at baseline. Patient also diagnosed with UTI prior to admission and completed 5 day course of nitrofurantoin. UA and urine culture during admission unremarkable. TCU at [place] pending pre-cert. Brain CT shows chronic changes. Chest x-ray shows no acute abnormality. 2. Chest pain-resolved. Suspected secondary to anxiety. Troponin negative. EKG without evidence of ischemia. 3. Physical debility status post recent right meniscal surgery-patient underwent right knee meniscal surgery 05/15/[address] Walker. Patient states she was told that she will need further repair due to incident prior to admission of patient crawling on knees. Continue outpatient follow-up. 4. Recent right lower extremity DVT-occurred following recent right meniscal surgery. Continue Xarelto. 5. Paroxysmal atrial fibrillation-currently sinus rhythm. Continue Cardizem and Xarelto. 6. Type 2 diabetes mellitus-home oral regimen on hold. Continue Accu-Cheks before meals at bedtime with sliding scale insulin. 7. Hypertension-stable, continue current regimen. 8. Hyperlipidemia-not on statin. 9. Osteoarthritis-PRN pain regimen. PT/OT. DVT prophylaxis-Xarelto. Discharge planning-TCU pending pre-cert. This patient was seen by SINDI Hidalgo under the supervision of Dr. Cuellar. <Nathaniel Cuellar - Last Filed: 06/03/17 11:09> - Physical Exam General: Alert, No apparent distress HEENT: Atraumatic, Normocephalic Extremities: No clubbing, No edema Skin: No rashes, No breakdown Vital Signs Temp Pulse Resp BP Pulse Ox 36.6 C 70 18 139/82 H 97 06/03/17 10:37 06/03/17 10:37 06/03/17 10:37 06/03/17 10:37 06/03/17 10:37 Oxygen Delivery Method Room Air Weight: 99.3 kg Body Mass Index (BMI) 38.7 Intake and Output for Last 24 Hours 06/01/17 06/02/17 06/03/17 23:59 23:59 23:59 Intake Total 1430 / 1430 1930 / 1930 150 / 150 Balance 1430 / 1430 1930 / 1930 150 / 150 POC Glucose 06/03/17 06/02/17 06/02/17 06:29 21:16 16:45 POC Glucose 189 H 191 H 169 H 06/02/17 11:15 POC Glucose 274 H Medical Necessity - Tobacco Use Smoking Status: Never smoker Tobacco Use: Non-smoker Assessment/Plan Patient seen and examined independently. I agree with above note by the NPO 1. Toxic encephalopathy: 2/2 polypharmacy (percocet, ambien, cymbalta and xanax) . 2. debility: awaiting on precertification for placement, once obtained, patient can be discharged. Code Visit Inpatient E&M: 00370 Subs Hosp L2
[2017-06-03 10:37] VITALS: BP 139/82; PULSE 70; RESP 18; TEMP 36.6; O2SAT 97
[2017-06-03] MEDS: Nitrofurantoin Macrocrystals 100 MG Capsule PO ×2 (10:49→21:45)
[2017-06-03] MEDS: dilTIAZem CD 240 MG Capsule PO (10:49)
[2017-06-03] MEDS: Magnesium Hydroxide 30 ML UDC PO (12:45)
[2017-06-03 12:56] LABS: Bedside Glucose 142 mg/dL (70-110)
[2017-06-03 16:45] VITALS: BP 149/75; PULSE 69; RESP 18; TEMP 36.7; O2SAT 95
[2017-06-03 16:51] LABS: Bedside Glucose 191 mg/dL (70-110)
[2017-06-03] MEDS: Rivaroxaban 15 MG Tablet PO (17:56)
[2017-06-03 20:10] VITALS: BP 130/71; PULSE 81; RESP 18; TEMP 36.7; O2SAT 97
[2017-06-03 21:45] LABS: Bedside Glucose 223 mg/dL (70-110)
[2017-06-03] MEDS: QUEtiapine 25 MG Tablet PO (21:45)
[2017-06-04] MEDS: oxyCODONE 5 MG Tablet PO ×2 (01:53→09:26)
[2017-06-04 01:57] VITALS: BP 157/75; PULSE 70; RESP 18; TEMP 36.7; O2SAT 97
[2017-06-04 06:41] LABS: Bedside Glucose 153 mg/dL (70-110)
--- NOTE | 2017-06-04 08:56 | CASEMGMT ---
Addendum entered by Brittani Wilson 06/04/17 11:18: Original medication list and transfer summary placed in SNF folder and copies put on pt's chart. Original Note: Addendum entered by Brittani Wilson 06/04/17 09:04: SW asked pt if she would like this worker to call anyone to inform them that pt is going to TCU today. Per pt she states that she will call them to let them know on her own phone that she will be going to TCU. Pt denied any other issues or concerns at this time. Plan: TCU today [facility] Original Note: Social Work Note SW received message from Luciana in TCU that they got pre-cert and is able to take pt today. AMY informed Aida Walters NP-C that pt is able to go to TCU today. Discharge summary and medication list already in chart for pt. AMY updated Charge Nurse Linda of this. AMY informed pt that she will be going to TCU today. Plan: Discharge to TCU today [facility]
[2017-06-04 09:14] VITALS: BP 171/76; PULSE 68; RESP 16; TEMP 36.8; O2SAT 100
[2017-06-04] MEDS: Nitrofurantoin Macrocrystals 100 MG Capsule PO (09:23)
[2017-06-04] MEDS: Acetaminophen 325 MG Tablet 650 MG PO (09:23)
[2017-06-04] MEDS: dilTIAZem CD 240 MG Capsule PO (09:23)
--- NOTE | 2017-06-04 11:07 | PN_ITS ---
Subjective: No new complaints. Ready to go to SNF. Vitals/I&O's: Vital Signs Temp Pulse Resp BP Pulse Ox 36.8 C 68 16 171/76 H 100 06/04/17 09:14 06/04/17 09:14 06/04/17 09:14 06/04/17 09:14 06/04/17 09:14 Oxygen Delivery Method Room Air Weight: 99.3 kg Body Mass Index (BMI) 38.7 Intake and Output for Last 24 Hours 06/02/17 06/03/17 06/04/17 23:59 23:59 23:59 Intake Total 1929 700 / 700 Balance 1929 700 / 700 General: Alert, Cooperative, No apparent distress HEENT: Atraumatic, Normocephalic Laboratory Results 06/03/17 12:48: POC Glucose 142 H 06/03/17 16:35: POC Glucose 191 H 06/03/17 21:39: POC Glucose 223 H 06/04/17 06:36: POC Glucose 153 H Current Medications Acetaminophen (Tylenol) 650 mg PO Q6H PRN PRN PRN Reason: PAIN Last Admin: 06/04/17 09:23 Dose: 650 mg Dextrose (D50w Syringe) 0 gm IV X1 PRN; Protocol PRN Reason: Hypoglycemia Diltiazem HCl (Cardizem Cd) 240 mg PO DAILY [facility] Last Admin: 06/04/17 09:23 Dose: 240 mg Glucagon () 1 mg IM .X1 PRN PRN Reason: Hypoglycemia Insulin Aspart (Novolog Flexpen (Bkc)) 0 units SC ACHS [facility] PRN Reason: Protocol Last Admin: 06/04/17 06:37 Dose: 2 units Magnesium Hydroxide (Milk Of Magnesia) 30 ml PO DAILY PRN PRN PRN Reason: Constipation Last Admin: 06/03/17 12:45 Dose: 30 ml Nitrofurantoin Macrocrystals (Macrobid) 100 mg PO BID [facility] Last Admin: 06/04/17 09:23 Dose: 100 mg Oxycodone HCl (Oxyir) 0 mg PO Q6H PRN PRN Reason: MOD-SEVERE PAIN (4-10/10) Last Admin: 06/04/17 09:26 Dose: 5 mg Quetiapine Fumarate (Seroquel) 25 mg PO QHS [facility] Last Admin: 06/03/17 21:45 Dose: 25 mg Rivaroxaban (Xarelto) 15 mg PO SUPPER PRO Stop: 06/19/17 17:01 Last Admin: 06/03/17 17:56 Dose: 15 mg Sodium Chloride () 5 - 30 ml IV UD PRN PRN Reason: SALINE FLUSH Medical Necessity - Tobacco Use Smoking Status: Never smoker Tobacco Use: Non-smoker Assessment/Plan 1. Toxic encephalopathy: 2/2 polypharmacy (percocet, ambien, cymbalta and xanax) . 2. debility: Precertification obtained today. DC to TCU. Code Visit Inpatient E&M: 45949 Disch Hosp
[2017-06-04 11:19] VITALS: BP 139/97; PULSE 70; RESP 18; TEMP 37; O2SAT 97
== END 2017-06-04 11:45 | disposition skilled nursing facility (03) ==
LOC: ED 10:22 → PCU 14:07 → MS3 06-01 11:53
PROVIDERS: Internal Medicine; Admitting Provider Internal Medicine; Emergency Provider Emergency Medicine; Family Provider Internal Medicine; PCP Internal Medicine
DX: R41.82 Altered mental status, unspecified (principal); R06.02 Shortness of breath; G92 Toxic encephalopathy; N39.0 Urinary tract infection, site not specified; R07.89 Other chest pain; T50.905A Adverse effect of unspecified drugs, medicaments and biological substances, initial encounter; I82.491 Acute embolism and thrombosis of other specified deep vein of right lower extremity; E78.5 Hyperlipidemia, unspecified; I10 Essential (primary) hypertension; F41.9 Anxiety disorder, unspecified; I48.0 Paroxysmal atrial fibrillation; E11.9 Type 2 diabetes mellitus without complications; F32.9 Major depressive disorder, single episode, unspecified; Z79.899 Other long term (current) drug therapy; Z79.01 Long term (current) use of anticoagulants; Z98.890 Other specified postprocedural states; M15.9 Polyosteoarthritis, unspecified
CPT/HCPCS: 36415; 70450; 71045; 80048; 81001; 82962; 84484; 85025; 87040; 87086; 93005; 97110; 97162; 97166; 97530; 97802; 99285; J7030; A4216

== ENCOUNTER 2017-06-04 12:00 | Inpatient (IN) | payer MEDICARE, SELFPAY ==
[2017-06-04 12:11] VITALS: BP 161/80; PULSE 79; RESP 16; TEMP 36.1; O2SAT 96
--- NOTE | 2017-06-04 12:12 | NURSING ---
PT ARRIVED FROM [facility] VIA BED AT NOON
[2017-06-04 12:50] VITALS: BMI 38.6
[2017-06-04 12:58] VITALS: BMI 38.6
[2017-06-04 15:50] VITALS: BP 136/64; PULSE 76; RESP 18; TEMP 36.2; O2SAT 96
[2017-06-04] MEDS: Rivaroxaban 15 MG Tablet PO (17:35)
[2017-06-04] MEDS: oxyCODONE 5 MG Tablet PO (19:54)
--- NOTE | 2017-06-04 20:21 | PCM.HP.STD ---
Problem List (1) Acute delirium Status: Acute (2) Chest pain Status: Acute (3) Shortness of breath Status: Acute (4) Diabetes mellitus Status: Chronic (5) Anxiety Status: Chronic (6) Edema Status: Chronic (7) Right leg DVT Status: Acute (8) Afib Status: Chronic (9) SBO (small bowel obstruction) Status: Chronic (10) Hyperlipidemia Status: Chronic (11) Osteoarthritis Status: Chronic (12) Hypertension Status: Chronic History of Present Illness Date of Admission: 06/04/17 Chief Complaint: Here for rehabilitation, strengthening, prior to discharge home alone. The patient is a 76 year old Female with below past medical history presented to [facility] Emergency Department 05/30/2017 with confusion, shortness of breath. 05/30/2017 Chest X-ray negative. 05/30/2017 CT brain chronic involutional changes of brain, bilateral sphenoid sinus opacification. Confusion in AM. Diagnosed with UTI, treated with Macrobid. Nausea, shortness of breath, sweats, anxiety. Recent right knee surgery, complicated by RLE DVT. Treated with Xarelto. CBC okay, BMP okay, UA negative, Troponin 0.02. EKG heart rate 84, nonspecific ST changes. Oxycodone given for right knee pain. 05/30/2017 Admit to Hospital. Recently started on Cymbalta 60MG along with Percocet 1-2 tablets Q6H, Ambien at night. Urine culture ordered. Cycle cardiac enzymes. 05/31/2017 Cymbalta held. Seroquel added. Patient may have stopped Xanax abruptly. Macrobid for UTI, urine culture negative. Troponin negative. Xarelto for DVT. 06/01/2017 Mental status back to baseline. Patient requesting to go to TCU, her was at TCU previously. Chest pain resolved, thought secondary to anxiety. Right knee meniscal surgical repair 05/15/[address] Walker. Xarelto for right lower extremity DVT. 06/04/2017 Admit to TCU for rehabilitation, strengthening, prior to discharge home alone. Past Medical History Past Medical History (Chronic Problems): Chronic Problems (Last Updated 04/23/17 @ 09:56 by Armida Neal) Diabetes mellitus (Chronic) Anxiety (Chronic) Edema (Chronic) Right knee meniscus surgery (Chronic) Afib (Chronic) SBO (small bowel obstruction) (Chronic) Hyperlipidemia (Chronic) Osteoarthritis (Chronic) Hypertension (Chronic) Type 2 diabetes mellitus (Chronic) Allergies ramelteon [From Rozerem] Allergy (Verified 05/30/17 09:30) Other bupropion Adverse Reaction (Verified 05/30/17 09:30) Other UNKNOWN bupropion HCl [From Wellbutrin] Adverse Reaction (Verified 05/30/17 09:30) Other UNKNOWN dexfenfluramine HCl [From Redux] Adverse Reaction (Verified 05/30/17 09:30) Unknown hydrochlorothiazide Adverse Reaction (Verified 05/30/17 09:30) Other UNKNOWN ketorolac tromethamine [From Toradol] Adverse Reaction (Verified 05/30/17 09:30) Itching oxaprozin [From Daypro] Adverse Reaction (Verified 05/30/17 09:30) Other UNKNOWN Home Medications: Ambulatory Orders Medication Instructions Recorded ALPRAZolam [Xanax] 0.5 mg PO QHS 12/11/13 Diltiazem CD [Cardizem CD] 240 mg PO DAILY 12/11/13 Canagliflozin [Invokana] 300 mg PO DAILY 09/12/16 Oxycodone HCl/Acetaminophen 1 - 2 tablet PO Q6H PRN PRN #56 05/15/17 [Percocet 5-325] tablet Rivaroxaban [Xarelto] 15 mg PO QPM 05/30/17 Sitagliptin Phosphate [Januvia] 100 mg PO DAILY 05/30/17 Quetiapine Fumarate [Seroquel] 25 mg PO QHS 06/04/17 Surgical History: arthroscopy, knee - Right knee meniscal repair, cholecystectomy, - - 2014 had bowel resection, also had whipple procedure in [place] 2007-, tubal ligation, carpal tunnel in wrist, shoulder and hand surgery hysterectemy, bladder suspension, wall between vagina and colon. Psychiatric History: Anxiety [employer]CI[employer]GE History: No pertinent [employer] CONCI[employer]GE history Lives: Alone Smoking Status: Never smoker Tobacco Use: Non-smoker Alcohol: None Drugs: None - *Family History Paternal History Items: - - afib Review of Systems Constitutional: Denies: Chills, Fever, Weight Change HEENT: Denies: Head Aches, Sinus Congestion, Sinus Drainage Cardiovascular: Denies: Chest Pain, Palpitations Respiratory: Denies: Cough, Shortness of breath at rest, Sputum production Gastrointestinal: Denies: Abdominal Pain, Nausea, Vomiting Genitourinary: Denies: Dysuria Musculoskeletal: Reports: Joint Pain - Right knee., Joint Tenderness - Right knee. Skin: Denies: Rash, Wounds Neurological: Denies: Numbness, Tingling, Focal weakness Psychiatric: Denies: Anxiety, Depression, Homicidal Ideations, Suicidal Ideations Hematologic/ Lymphatic: Denies: Easy Bruising, Easy Bleeding VTE Information - Inpt Only VTE Present on Admission: Yes VTE Mechan Device Prophylaxis: Knee High ANICETO Hose VTE Pharm Prophylaxis ordered?: No Reason prophylaxis not ordered:: Treatment Not Indicated - Already on Xarelto for right lower extremity DVT. Patient Problems: Active and Suspected Problems (Last Updated 04/23/17 @ 09:56 by Armida Neal) Acute delirium (Acute) Chest pain (Acute) Shortness of breath (Acute) - Physical Exam General: Alert, Oriented x3, Cooperative HEENT: Atraumatic, PERRLA, EOMI, Normocephalic Neck: Supple, No JVD, Negative Carotid Bruits Lungs: Clear to auscultation, Normal air movement Cardiovascular: Regular rate, No murmurs Abdomen: Bowel Sounds Present, Soft, Non Tender Extremities: No edema, Capillary Refill Less than 3 Seconds Skin: No rashes, No breakdown Musculoskeletal: No Tenderness to Palpation of Joints or Extremities, - - Right knee swollen, bruised, tender to palpation. Neurological: Cranial nerves II-XII grossly intact Psych/Mental Status: Normal Affect, Appropriate Vital Signs Temp Pulse Resp BP Pulse Ox 97.2 F L 76 18 136/64 H 96 06/04/17 15:50 06/04/17 15:50 06/04/17 15:50 06/04/17 15:50 06/04/17 15:50 Oxygen Delivery Method Room Air Weight: 98.9 kg Body Mass Index (BMI) 38.6 Finger Stick Blood Glucose 173 Intake and Output for Last 24 Hours 06/02/17 06/03/17 06/04/17 23:59 23:59 23:59 Intake Total 180 / 180 Output Total Balance 179 / 179 Assessment/Plan Active and Suspected Problems (Last Updated 04/23/17 @ 09:56 by Armida Neal) Acute delirium (Acute) Chest pain (Acute) Shortness of breath (Acute) 76 year old female with below past medical history hospitalized for acute delirium secondary to polypharmacy, complicated by right lower extremity DVT, chest pain, partially treated urinary tract infection, admitted to TCU with debility, here for rehabilitation, strengthening, prior to discharge home alone. Debility - PT/OT. Pain - Tylenol 1000MG Q8H PRN mild pain, Oxycodone 5-10MG Q6H PRN severe pain. Bowel - Miralax 17GM daily, Senna/colace 2 tablets BID, Dulcolax 10MG NE daily PRN. Pneumonia vaccination - Administer Prevnar 13 and/or Pneumovax 23 as necessary. DVT prophylaxis - Not necessary, on Xarelto for treatment of RLE DVT. Anxiety/Insomnia - Xanax 0.5MG QHS ([employer] drug due to pen[facility] use). Diabetes Mellitus II - Tradjenta 5MG daily, change Invokana 300MG to Jardiance 25MG to lower risk of amputation. Hypertension - Diltiazem 240MG daily. Acute Delirium - Seroquel 25MG QHS x 3 days, then 12.5MG QHS x 7 days, then stop. (Gradual Dose reduction). Right lower extremity DVT - Xarelto 15MG twice daily thru 06/14/2017, then 20MG daily thru 11/23/2017.
--- NOTE | 2017-06-04 20:31 | HP.PCM_ITS ---
Problem List (1) Acute delirium Status: Acute (2) Chest pain Status: Acute (3) Shortness of breath Status: Acute (4) Diabetes mellitus Status: Chronic (5) Anxiety Status: Chronic (6) Edema Status: Chronic (7) Right leg DVT Status: Acute (8) Afib Status: Chronic (9) SBO (small bowel obstruction) Status: Chronic (10) Hyperlipidemia Status: Chronic (11) Osteoarthritis Status: Chronic (12) Hypertension Status: Chronic History of Present Illness Date of Admission: 06/04/17 Chief Complaint: Here for rehabilitation, strengthening, prior to discharge home alone. The patient is a 76 year old Female with below past medical history presented to [facility] Emergency Department 05/30/2017 with confusion, shortness of breath. 05/30/2017 Chest X-ray negative. 05/30/2017 CT brain chronic involutional changes of brain, bilateral sphenoid sinus opacification. Confusion in AM. Diagnosed with UTI, treated with Macrobid. Nausea, shortness of breath, sweats, anxiety. Recent right knee surgery, complicated by RLE DVT. Treated with Xarelto. CBC okay, BMP okay, UA negative, Troponin 0.02. EKG heart rate 84, nonspecific ST changes. Oxycodone given for right knee pain. 05/30/2017 Admit to Hospital. Recently started on Cymbalta 60MG along with Percocet 1-2 tablets Q6H, Ambien at night. Urine culture ordered. Cycle cardiac enzymes. 05/31/2017 Cymbalta held. Seroquel added. Patient may have stopped Xanax abruptly. Macrobid for UTI, urine culture negative. Troponin negative. Xarelto for DVT. 06/01/2017 Mental status back to baseline. Patient requesting to go to TCU, her was at TCU previously. Chest pain resolved, thought secondary to anxiety. Right knee meniscal surgical repair 05/15/[address] Walker. Xarelto for right lower extremity DVT. 06/04/2017 Admit to TCU for rehabilitation, strengthening, prior to discharge home alone. Past Medical History Past Medical History (Chronic Problems): Chronic Problems (Last Updated 04/23/17 @ 09:56 by Armida Neal) Diabetes mellitus (Chronic) Anxiety (Chronic) Edema (Chronic) Right knee meniscus surgery (Chronic) Afib (Chronic) SBO (small bowel obstruction) (Chronic) Hyperlipidemia (Chronic) Osteoarthritis (Chronic) Hypertension (Chronic) Type 2 diabetes mellitus (Chronic) Allergies ramelteon [From Rozerem] Allergy (Verified 05/30/17 09:30) Other bupropion Adverse Reaction (Verified 05/30/17 09:30) Other UNKNOWN bupropion HCl [From Wellbutrin] Adverse Reaction (Verified 05/30/17 09:30) Other UNKNOWN dexfenfluramine HCl [From Redux] Adverse Reaction (Verified 05/30/17 09:30) Unknown hydrochlorothiazide Adverse Reaction (Verified 05/30/17 09:30) Other UNKNOWN ketorolac tromethamine [From Toradol] Adverse Reaction (Verified 05/30/17 09:30) Itching oxaprozin [From Daypro] Adverse Reaction (Verified 05/30/17 09:30) Other UNKNOWN Home Medications: Ambulatory Orders Medication Instructions Recorded ALPRAZolam [Xanax] 0.5 mg PO QHS 12/11/13 Diltiazem CD [Cardizem CD] 240 mg PO DAILY 12/11/13 Canagliflozin [Invokana] 300 mg PO DAILY 09/12/16 Oxycodone HCl/Acetaminophen 1 - 2 tablet PO Q6H PRN PRN #56 05/15/17 [Percocet 5-325] tablet Rivaroxaban [Xarelto] 15 mg PO QPM 05/30/17 Sitagliptin Phosphate [Januvia] 100 mg PO DAILY 05/30/17 Quetiapine Fumarate [Seroquel] 25 mg PO QHS 06/04/17 Surgical History: arthroscopy, knee - Right knee meniscal repair, cholecystectomy, - - 2014 had bowel resection, also had whipple procedure in [place] 2007-, tubal ligation, carpal tunnel in wrist, shoulder and hand surgery hysterectemy, bladder suspension, wall between vagina and colon. 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 Skin: Denies: Rash, Wounds Neurological: Denies: Numbness, Tingling, Focal weakness Psychiatric: Denies: Anxiety, Depression, Homicidal Ideations, Suicidal Ideations Hematologic/ Lymphatic: Denies: Easy Bruising, Easy Bleeding VTE Information - Inpt Only VTE Present on Admission: Yes VTE Mechan Device Prophylaxis: Knee High ANICETO Hose VTE Pharm Prophylaxis ordered?: No Reason prophylaxis not ordered:: Treatment Not Indicated - Already on Xarelto for right lower extremity DVT. Patient Problems: Active and Suspected Problems (Last Updated 04/23/17 @ 09:56 by Armida Neal ) Acute delirium (Acute) Chest pain (Acute) Shortness of breath (Acute) - Physical Exam General: Alert, Oriented x3, Cooperative HEENT: Atraumatic, PERRLA, EOMI, Normocephalic Neck: Supple, No JVD, Negative Carotid Bruits Lungs: Clear to auscultation, Normal air movement Cardiovascular: Regular rate, No murmurs Abdomen: Bowel Sounds Present, Soft, Non Tender Extremities: No edema, Capillary Refill Less than 3 Seconds Skin: No rashes, No breakdown Musculoskeletal: No Tenderness to Palpation of Joints or Extremities, - - Right knee swollen, bruised, tender to palpation. Neurological: Cranial nerves II-XII grossly intact Psych/Mental Status: Normal Affect, Appropriate Vital Signs Temp Pulse Resp BP Pulse Ox 97.2 F L 76 18 136/64 H 96 06/04/17 15:50 06/04/17 15:50 06/04/17 15:50 06/04/17 15:50 06/04/17 15:50 Oxygen Delivery Method Room Air Weight: 98.9 kg Body Mass Index (BMI) 38.6 Finger Stick Blood Glucose 173 Intake and Output for Last 24 Hours 06/02/17 06/03/17 06/04/17 23:59 23:59 23:59 Intake Total 180 / 180 Output Total Balance 179 / 179 Assessment/Plan Active and Suspected Problems (Last Updated 04/23/17 @ 09:56 by Armida Neal ) Acute delirium (Acute) Chest pain (Acute) Shortness of breath (Acute) 76 year old female with below past medical history hospitalized for acute delirium secondary to polypharmacy, complicated by right lower extremity DVT, chest pain, partially treated urinary tract infection, admitted to TCU with debility, here for rehabilitation, strengthening, prior to discharge home alone. * Debility - PT/OT. * Pain - Tylenol 1000MG Q8H PRN mild pain, Oxycodone 5-10MG Q6H PRN severe pain. * Bowel - Miralax 17GM daily, Senna/colace 2 tablets BID, Dulcolax 10MG IN daily PRN. * Pneumonia vaccination - Administer Prevnar 13 and/or Pneumovax 23 as necessary. * DVT prophylaxis - Not necessary, on Xarelto for treatment of RLE DVT. * Anxiety/Insomnia - Xanax 0.5MG QHS ([employer] drug due to medical terminologist use). * Diabetes Mellitus II - Tradjenta 5MG daily, change Invokana 300MG to Jardiance 25MG to lower risk of amputation. * Hypertension - Diltiazem 240MG daily. * Acute Delirium - Seroquel 25MG QHS x 3 days, then 12.5MG QHS x 7 days, then stop. (Gradual Dose reduction). * Right lower extremity DVT - Xarelto 15MG twice daily thru 06/14/2017, then 20MG daily thru 11/23/2017.
[2017-06-04] MEDS: QUEtiapine 25 MG Tablet PO (20:39)
[2017-06-04] MEDS: ALPRAZolam 0.5 MG Tablet PO (20:39)
[2017-06-05] MEDS: Senna/Docusate Sodium 1 Tablet 2 TABLET PO ×2 (05:14→17:48)
[2017-06-05] MEDS: dilTIAZem CD 240 MG Capsule PO (05:14)
[2017-06-05] MEDS: LINAGLIPTIN 5 MG TABLET PO (05:14)
[2017-06-05] MEDS: Empagliflozin 25 MG Tablet PO (05:15)
[2017-06-05] MEDS: oxyCODONE 5 MG Tablet PO ×2 (05:19→11:32)
--- NOTE | 2017-06-05 05:29 | NURSING ---
Saline lock removed from Left FA. Catheter intact. Pt tolerated well. Compression and dsrg applied.
[2017-06-05 07:00] LABS: Bedside Glucose 158 mg/dL (70-110)
[2017-06-05 07:05] LABS: Absolute Lymphocyte Count 2.46 X10^3/ul (0.83-4.51); Absolute Neutrophil Count 3.5 X10^3/uL (2.0-7.7); Basophil# 0.03 X10^3/uL; Basophil% 0.5 % (0-1); Eosinophil# 0.07 X10^3/uL; Eosinophils% 1.1 % (0-5); Hematocrit 41.5 % (37-47); Hemoglobin 13.6 g/dl (12.0-15.0); Lymphocyte # 2.46 X10^3/ul (4.0); Mean Corp Hgb Conc 32.8 g/gl (32-36); Mean Corpuscular Hgb 30.4 pg (27.0-32.0); Mean Corpuscular Volume 92.8 fL (81-99); Mean Platelet Vol. 9.4 fl (6.2-12.0); Monocyte# 0.46 X10^3/uL; Monocyte% 6.9 % (0-10); Neutrophil % 52.5 % (47-70); Platelet Count 173 K/mm3 (150-450); RBC Distribution Width CV 14.4 % (11.6-14.6); RBC Distribution Width SD 49.1 fl (35.1-43.9); Red Blood Count 4.47 M/mm3 (4.2-5.4); White Blood Count 6.7 K/mm3 (4.4-11.0)
[2017-06-05 07:08] LABS: POSITIVE COUNT YES; POSITIVE DIFFERENTIAL NO; POSITIVE MORPHOLOGY YES
[2017-06-05 07:10] LABS: Anion Gap 9 (5-15); BUN 15 mg/dL (7-18); Chloride 106 mmol/L (98-107); EST Glomerular Filtration Rate 103 mL/min (>60); Est Glom Filt Rate - Afr Amer 125 mL/min (>60); Estimated Creatinine Clearance 40.21 ml/min; Glucose 178 mg/dL (74-106); Potassium 3.8 mmol/L (3.5-5.1); Sodium Level 140 mmol/L (136-145)
[2017-06-05] MEDS: Rivaroxaban 15 MG Tablet PO ×2 (07:45→17:48)
[2017-06-05] MEDS: Tuberculin,Purif.prot.deriv. 50 TU/ML Vial 5 ML ID (09:59)
[2017-06-05] MEDS: Ondansetron ODT 4 MG Tablet PO (11:18)
--- NOTE | 2017-06-05 13:12 | PCM.PN.RX ---
<RajniJayy ascencio D - Last Filed: 06/05/17 13:12> Progress Note - Pharmacy Subjective: TCU Admission Objective: Allergies ramelteon [From Rozerem] Allergy (Verified 05/30/17 09:30) Other bupropion Adverse Reaction (Verified 05/30/17 09:30) Other UNKNOWN bupropion HCl [From Wellbutrin] Adverse Reaction (Verified 05/30/17 09:30) Other UNKNOWN dexfenfluramine HCl [From Redux] Adverse Reaction (Verified 05/30/17 09:30) Unknown hydrochlorothiazide Adverse Reaction (Verified 05/30/17 09:30) Other UNKNOWN ketorolac tromethamine [From Toradol] Adverse Reaction (Verified 05/30/17 09:30) Itching oxaprozin [From Daypro] Adverse Reaction (Verified 05/30/17 09:30) Other UNKNOWN Home Medications Medication Instructions Recorded ALPRAZolam [Xanax] 0.5 mg PO QHS 12/11/13 Diltiazem CD [Cardizem CD] 240 mg PO DAILY 12/11/13 Canagliflozin [Invokana] 300 mg PO DAILY 09/12/16 Oxycodone HCl/Acetaminophen 1 - 2 tablet PO Q6H PRN PRN #56 05/15/17 [Percocet 5-325] tablet Rivaroxaban [Xarelto] 15 mg PO QPM 05/30/17 Sitagliptin Phosphate [Januvia] 100 mg PO DAILY 05/30/17 Quetiapine Fumarate [Seroquel] 25 mg PO QHS 06/04/17 Current Medications Generic Name Dose Route Start Last Admin Trade Name Freq PRN Reason Stop Dose Admin Acetaminophen 1,000 mg 06/04/17 20:42 Tylenol PO Q8H PRN PRN MILD PAIN (1-3/10) Alprazolam 0.5 mg 06/04/17 22:00 06/04/17 20:39 Xanax PO 0.5 mg QHS PRO Administration Bisacodyl 10 mg 06/04/17 20:43 Dulcolax RECTAL DAILY PRN Constipation Calamine/Phenol 1 applic 06/05/17 22:00 Calmoseptine Ointment TOPICAL 0600,2200 [facility] Protocol Diltiazem HCl 240 mg 06/05/17 06:00 06/05/17 05:14 Cardizem Cd PO 240 mg DAILY PRO Administration Linagliptin 5 mg 06/05/17 06:00 06/05/17 05:14 Tradjenta PO 5 mg DAILY [facility] Administration Ondansetron HCl 4 mg 06/05/17 10:34 06/05/17 11:18 Zofran Odt PO 4 mg Q6H PRN PRN Administration NAUSEA Oxycodone HCl 5 - 10 mg 06/04/17 19:47 06/05/17 11:32 Oxyir PO 5 mg Q6H PRN PRN Administration SEVERE PAIN (6-10) Polyethylene Glycol 17 gm 06/05/17 06:00 06/05/17 05:14 Miralax PO Not Given DAILY [facility] Quetiapine Fumarate 25 mg 06/04/17 22:00 06/04/17 20:39 Seroquel PO 06/07/17 23:59 25 mg QHS PRO Administration Quetiapine Fumarate 12.5 mg 06/08/17 22:00 Seroquel PO 06/15/17 22:01 QHS [facility] Rivaroxaban 15 mg 06/05/17 08:00 06/05/17 07:45 Xarelto PO 06/14/17 23:59 15 mg BIDCM [facility] Administration Rivaroxaban 20 mg 06/15/17 06:00 Xarelto PO DAILY@0600 [facility] Senna/Docusate Sodium 2 tablet 06/05/17 06:00 06/05/17 05:14 Senokot-S, Gloria-Colace PO 2 tablet BID [facility] Administration Tuberculin PPD 5 tu 06/12/17 10:00 Tubersol, Aplisol, Ppd ID 06/12/17 10:01 X1 ONE Problem List (Last Updated 04/23/17 @ 09:56 by Armida Neal) Acute delirium (Acute) Chest pain (Acute) Shortness of breath (Acute) Diabetes mellitus (Chronic) Anxiety (Chronic) Edema (Chronic) Vital Signs Temp Pulse Resp BP Pulse Ox 97.2 F L 76 18 136/64 H 96 06/04/17 15:50 06/04/17 15:50 06/04/17 15:50 06/04/17 15:50 06/04/17 15:50 Oxygen Delivery Method Room Air Weight: 98.9 kg Body Mass Index (BMI) 38.6 Finger Stick Blood Glucose 173 Sodium 140 mmol/L (136-145) 06/05/17 06:44 Potassium 3.8 mmol/L (3.5-5.1) 06/05/17 06:44 Chloride 106 mmol/L (98-107) 06/05/17 06:44 Carbon Dioxide 25.0 mmol/L (21.0-32.0) 06/05/17 06:44 Anion Gap 9 (5-15) 06/05/17 06:44 BUN 15 mg/dL (7-18) 06/05/17 06:44 Creatinine 0.60 mg/dL (0.55-1.02) 06/05/17 06:44 Est GFR (MDRD) Af Amer 125 mL/min (>60) 06/05/17 06:44 Est GFR (MDRD) Non-Af 103 mL/min (>60) 06/05/17 06:44 BUN/Creatinine Ratio 25.0 RATIO (10-20) H 06/05/17 06:44 Glucose 178 mg/dL (74-106) H 06/05/17 06:44 Assessment/Plan: 1) Pain APAP for mild pain, oxycodone for severe pain. Continue to monitor prn medication use, daily pain scores. 2) HTN Diltiazem daily. Avg BP/HR within goal ranges. Continue to monitor BP/HR. 3) DVT Rivaroxaban twice daily, convert to daily after 06/13. Hgb/Hct at baseline. Continue to monitor renal function, s/s bleeding. 4) DM2 Empagliflozin, linagliptin. BGT < 180 mg/dL, renal function at baseline. Continue to monitor renal function, BGT. 5) Derm Calmoseptine topically. Continue to monitor clinically. 6) GI Ondansetron as needed. Continue to monitor prn medication use, for n/v. Psychotropic Medications: 7) Anxiety/Delirium Alprazolam at HS, quetiapine being titrated/reduced to d/c. Continue to monitor for insomnia, anxiety, delirium. Unnecessary Medications: None Bowel Regimen: 8) Senna/s, PEG, prn bisacodyl. Continue to monitor prn medication use, for constipation/diarrhea. Date of Note:: 06/05/17 - Provider Comments Provider responsibility: Provider responsible to enter orders to implement recommendations <Shiraz,Saravanan Chi - Last Filed: 06/05/17 14:14> Progress Note - Pharmacy Subjective: [] Objective: Allergies ramelteon [From Rozerem] Allergy (Verified 05/30/17 09:30) Other bupropion Adverse Reaction (Verified 05/30/17 09:30) Other UNKNOWN bupropion HCl [From Wellbutrin] Adverse Reaction (Verified 05/30/17 09:30) Other UNKNOWN dexfenfluramine HCl [From Redux] Adverse Reaction (Verified 05/30/17 09:30) Unknown hydrochlorothiazide Adverse Reaction (Verified 05/30/17 09:30) Other UNKNOWN ketorolac tromethamine [From Toradol] Adverse Reaction (Verified 05/30/17 09:30) Itching oxaprozin [From Daypro] Adverse Reaction (Verified 05/30/17 09:30) Other UNKNOWN Home Medications Medication Instructions Recorded ALPRAZolam [Xanax] 0.5 mg PO QHS 12/11/13 Diltiazem CD [Cardizem CD] 240 mg PO DAILY 12/11/13 Canagliflozin [Invokana] 300 mg PO DAILY 09/12/16 Oxycodone HCl/Acetaminophen 1 - 2 tablet PO Q6H PRN PRN #56 05/15/17 [Percocet 5-325] tablet Rivaroxaban [Xarelto] 15 mg PO QPM 05/30/17 Sitagliptin Phosphate [Januvia] 100 mg PO DAILY 05/30/17 Quetiapine Fumarate [Seroquel] 25 mg PO QHS 06/04/17 Current Medications Generic Name Dose Route Start Last Admin Trade Name Freq PRN Reason Stop Dose Admin Acetaminophen 1,000 mg 06/04/17 20:42 Tylenol PO Q8H PRN PRN MILD PAIN (1-3/10) Alprazolam 0.5 mg 06/04/17 22:00 06/04/17 20:39 Xanax PO 0.5 mg QHS PRO Administration Bisacodyl 10 mg 06/04/17 20:43 Dulcolax RECTAL DAILY PRN Constipation Calamine/Phenol 1 applic 06/05/17 22:00 Calmoseptine Ointment TOPICAL 0600,2200 [facility] Protocol Diltiazem HCl 240 mg 06/05/17 06:00 06/05/17 05:14 Cardizem Cd PO 240 mg DAILY PRO Administration Linagliptin 5 mg 06/05/17 06:00 06/05/17 05:14 Tradjenta PO 5 mg DAILY [facility] Administration Ondansetron HCl 4 mg 06/05/17 10:34 06/05/17 11:18 Zofran Odt PO 4 mg Q6H PRN PRN Administration NAUSEA Oxycodone HCl 5 - 10 mg 06/04/17 19:47 06/05/17 11:32 Oxyir PO 5 mg Q6H PRN PRN Administration SEVERE PAIN (6-1010) Polyethylene Glycol 17 gm 06/05/17 06:00 06/05/17 05:14 Miralax PO Not Given DAILY [facility] Quetiapine Fumarate 25 mg 06/04/17 22:00 06/04/17 20:39 Seroquel PO 06/07/17 23:59 25 mg QHS [facility] Administration Quetiapine Fumarate 12.5 mg 06/08/17 22:00 Seroquel PO 06/15/17 22:01 QHS [facility] Rivaroxaban 15 mg 06/05/17 08:00 06/05/17 07:45 Xarelto PO 06/14/17 23:59 15 mg BIDCM [facility] Administration Rivaroxaban 20 mg 06/15/17 06:00 Xarelto PO DAILY@0600 [facility] Senna/Docusate Sodium 2 tablet 06/05/17 06:00 06/05/17 05:14 Senokot-S, Gloria-Colace PO 2 tablet BID [facility] Administration Tuberculin PPD 5 tu 06/12/17 10:00 Tubersol, Aplisol, Ppd ID 06/12/17 10:01 X1 ONE Problem List (Last Updated 04/23/17 @ 09:56 by Armida Neal) Acute delirium (Acute) Chest pain (Acute) Shortness of breath (Acute) Diabetes mellitus (Chronic) Anxiety (Chronic) Edema (Chronic) Vital Signs Temp Pulse Resp BP Pulse Ox 97.2 F L 76 18 136/64 H 96 06/04/17 15:50 06/04/17 15:50 06/04/17 15:50 06/04/17 15:50 06/04/17 15:50 Oxygen Delivery Method Room Air Weight: 98.9 kg Body Mass Index (BMI) 38.6 Finger Stick Blood Glucose 173 Sodium 140 mmol/L (136-145) 06/05/17 06:44 Potassium 3.8 mmol/L (3.5-5.1) 06/05/17 06:44 Chloride 106 mmol/L (98-107) 06/05/17 06:44 Carbon Dioxide 25.0 mmol/L (21.0-32.0) 06/05/17 06:44 Anion Gap 9 (5-15) 06/05/17 06:44 BUN 15 mg/dL (7-18) 06/05/17 06:44 Creatinine 0.60 mg/dL (0.55-1.02) 06/05/17 06:44 Est GFR (MDRD) Af Amer 125 mL/min (>60) 06/05/17 06:44 Est GFR (MDRD) Non-Af 103 mL/min (>60) 06/05/17 06:44 BUN/Creatinine Ratio 25.0 RATIO (10-20) H 06/05/17 06:44 Glucose 178 mg/dL (74-106) H 06/05/17 06:44 Assessment/Plan: Psychotropic Medications: Unnecessary Medications: Bowel Regimen: - Provider Comments Provider responsibility: Provider responsible to enter orders to implement recommendations Provider Comments to Recommendations by Pharmacy: Agree
--- NOTE | 2017-06-05 13:20 | PHA.CONS_ITS ---
<RajniJayy ascencio D - Last Filed: 06/05/17 13:12> Progress Note - Pharmacy Subjective: TCU Admission Objective: Allergies ramelteon [From Rozerem] Allergy (Verified 05/30/17 09:30) Other bupropion Adverse Reaction (Verified 05/30/17 09:30) Other UNKNOWN bupropion HCl [From Wellbutrin] Adverse Reaction (Verified 05/30/17 09:30) Other UNKNOWN dexfenfluramine HCl [From Redux] Adverse Reaction (Verified 05/30/17 09:30) Unknown hydrochlorothiazide Adverse Reaction (Verified 05/30/17 09:30) Other UNKNOWN ketorolac tromethamine [From Toradol] Adverse Reaction (Verified 05/30/17 09:30) Itching oxaprozin [From Daypro] Adverse Reaction (Verified 05/30/17 09:30) Other UNKNOWN Home Medications Medication Instructions Recorded ALPRAZolam [Xanax] 0.5 mg PO QHS 12/11/13 Diltiazem CD [Cardizem CD] 240 mg PO DAILY 12/11/13 Canagliflozin [Invokana] 300 mg PO DAILY 09/12/16 Oxycodone HCl/Acetaminophen 1 - 2 tablet PO Q6H PRN PRN #56 05/15/17 [Percocet 5-325] tablet Rivaroxaban [Xarelto] 15 mg PO QPM 05/30/17 Sitagliptin Phosphate [Januvia] 100 mg PO DAILY 05/30/17 Quetiapine Fumarate [Seroquel] 25 mg PO QHS 06/04/17 Current Medications Generic Name Dose Route Start Last Admin Trade Name Freq PRN Reason Stop Dose Admin Acetaminophen 1,000 mg 06/04/17 20:42 Tylenol PO Q8H PRN PRN MILD PAIN (1-3/10) Alprazolam 0.5 mg 06/04/17 22:00 06/04/17 20:39 Xanax PO 0.5 mg QHS PRO Administration Bisacodyl 10 mg 06/04/17 20:43 Dulcolax RECTAL DAILY PRN Constipation Calamine/Phenol 1 applic 06/05/17 22:00 Calmoseptine Ointment TOPICAL 0600,2200 [facility] Protocol Diltiazem HCl 240 mg 06/05/17 06:00 06/05/17 05:14 Cardizem Cd PO 240 mg DAILY PRO Administration Linagliptin 5 mg 06/05/17 06:00 06/05/17 05:14 Tradjenta PO 5 mg DAILY [facility] Administration Ondansetron HCl 4 mg 06/05/17 10:34 06/05/17 11:18 Zofran Odt PO 4 mg Q6H PRN PRN Administration NAUSEA Oxycodone HCl 5 - 10 mg 06/04/17 19:47 06/05/17 11:32 Oxyir PO 5 mg Q6H PRN PRN Administration SEVERE PAIN (6-10) Polyethylene Glycol 17 gm 06/05/17 06:00 06/05/17 05:14 Miralax PO Not Given DAILY [facility] Quetiapine Fumarate 25 mg 06/04/17 22:00 06/04/17 20:39 Seroquel PO 06/07/17 23:59 25 mg QHS PRO Administration Quetiapine Fumarate 12.5 mg 06/08/17 22:00 Seroquel PO 06/15/17 22:01 QHS [facility] Rivaroxaban 15 mg 06/05/17 08:00 06/05/17 07:45 Xarelto PO 06/14/17 23:59 15 mg BIDCM [facility] Administration Rivaroxaban 20 mg 06/15/17 06:00 Xarelto PO DAILY@0600 [facility] Senna/Docusate Sodium 2 tablet 06/05/17 06:00 06/05/17 05:14 Senokot-S, Gloria-Colace PO 2 tablet BID [facility] Administration Tuberculin PPD 5 tu 06/12/17 10:00 Tubersol, Aplisol, Ppd ID 06/12/17 10:01 X1 ONE Problem List (Last Updated 04/23/17 @ 09:56 by Armida Neal) Acute delirium (Acute) Chest pain (Acute) Shortness of breath (Acute) Diabetes mellitus (Chronic) Anxiety (Chronic) Edema (Chronic) Vital Signs Temp Pulse Resp BP Pulse Ox 97.2 F L 76 18 136/64 H 96 06/04/17 15:50 06/04/17 15:50 06/04/17 15:50 06/04/17 15:50 06/04/17 15:50 Oxygen Delivery Method Room Air Weight: 98.9 kg Body Mass Index (BMI) 38.6 Finger Stick Blood Glucose 173 Sodium 140 mmol/L (136-145) 06/05/17 06:44 Potassium 3.8 mmol/L (3.5-5.1) 06/05/17 06:44 Chloride 106 mmol/L (98-107) 06/05/17 06:44 Carbon Dioxide 25.0 mmol/L (21.0-32.0) 06/05/17 06:44 Anion Gap 9 (5-15) 06/05/17 06:44 BUN 15 mg/dL (7-18) 06/05/17 06:44 Creatinine 0.60 mg/dL (0.55-1.02) 06/05/17 06:44 Est GFR (MDRD) Af Amer 125 mL/min (>60) 06/05/17 06:44 Est GFR (MDRD) Non-Af 103 mL/min (>60) 06/05/17 06:44 BUN/Creatinine Ratio 25.0 RATIO (10-20) H 06/05/17 06:44 Glucose 178 mg/dL (74-106) H 06/05/17 06:44 Assessment/Plan: 1) Pain APAP for mild pain, oxycodone for severe pain. Continue to monitor prn medication use, daily pain scores. 2) HTN Diltiazem daily. Avg BP/HR within goal ranges. Continue to monitor BP/HR. 3) DVT Rivaroxaban twice daily, convert to daily after 06/13. Hgb/Hct at baseline. Continue to monitor renal function, s/s bleeding. 4) DM2 Empagliflozin, linagliptin. BGT < 180 mg/dL, renal function at baseline. Continue to monitor renal function, BGT. 5) Derm Calmoseptine topically. Continue to monitor clinically. 6) GI Ondansetron as needed. Continue to monitor prn medication use, for n/v. Psychotropic Medications: 7) Anxiety/Delirium Alprazolam at HS, quetiapine being titrated/reduced to d/c. Continue to monitor for insomnia, anxiety, delirium. Unnecessary Medications: None Bowel Regimen: 8) Senna/s, PEG, prn bisacodyl. Continue to monitor prn medication use, for constipation/diarrhea. Date of Note:: 06/05/17 - Provider Comments Provider responsibility: Provider responsible to enter orders to implement recommendations <Shiraz,Saravanan Chi - Last Filed: 06/05/17 14:14> Progress Note - Pharmacy Subjective: [] Objective: Allergies ramelteon [From Rozerem] Allergy (Verified 05/30/17 09:30) Other bupropion Adverse Reaction (Verified 05/30/17 09:30) Other UNKNOWN bupropion HCl [From Wellbutrin] Adverse Reaction (Verified 05/30/17 09:30) Other UNKNOWN dexfenfluramine HCl [From Redux] Adverse Reaction (Verified 05/30/17 09:30) Unknown hydrochlorothiazide Adverse Reaction (Verified 05/30/17 09:30) Other UNKNOWN ketorolac tromethamine [From Toradol] Adverse Reaction (Verified 05/30/17 09:30) Itching oxaprozin [From Daypro] Adverse Reaction (Verified 05/30/17 09:30) Other UNKNOWN Home Medications Medication Instructions Recorded ALPRAZolam [Xanax] 0.5 mg PO QHS 12/11/13 Diltiazem CD [Cardizem CD] 240 mg PO DAILY 12/11/13 Canagliflozin [Invokana] 300 mg PO DAILY 09/12/16 Oxycodone HCl/Acetaminophen 1 - 2 tablet PO Q6H PRN PRN #56 05/15/17 [Percocet 5-325] tablet Rivaroxaban [Xarelto] 15 mg PO QPM 05/30/17 Sitagliptin Phosphate [Januvia] 100 mg PO DAILY 05/30/17 Quetiapine Fumarate [Seroquel] 25 mg PO QHS 06/04/17 Current Medications Generic Name Dose Route Start Last Admin Trade Name Freq PRN Reason Stop Dose Admin Acetaminophen 1,000 mg 06/04/17 20:42 Tylenol PO Q8H PRN PRN MILD PAIN (1-3/10) Alprazolam 0.5 mg 06/04/17 22:00 06/04/17 20:39 Xanax PO 0.5 mg QHS PRO Administration Bisacodyl 10 mg 06/04/17 20:43 Dulcolax RECTAL DAILY PRN Constipation Calamine/Phenol 1 applic 06/05/17 22:00 Calmoseptine Ointment TOPICAL 0600,2200 [facility] Protocol Diltiazem HCl 240 mg 06/05/17 06:00 06/05/17 05:14 Cardizem Cd PO 240 mg DAILY PRO Administration Linagliptin 5 mg 06/05/17 06:00 06/05/17 05:14 Tradjenta PO 5 mg DAILY [facility] Administration Ondansetron HCl 4 mg 06/05/17 10:34 06/05/17 11:18 Zofran Odt PO 4 mg Q6H PRN PRN Administration NAUSEA Oxycodone HCl 5 - 10 mg 06/04/17 19:47 06/05/17 11:32 Oxyir PO 5 mg Q6H PRN PRN Administration SEVERE PAIN (6-1010) Polyethylene Glycol 17 gm 06/05/17 06:00 06/05/17 05:14 Miralax PO Not Given DAILY [facility] Quetiapine Fumarate 25 mg 06/04/17 22:00 06/04/17 20:39 Seroquel PO 06/07/17 23:59 25 mg QHS [facility] Administration Quetiapine Fumarate 12.5 mg 06/08/17 22:00 Seroquel PO 06/15/17 22:01 QHS [facility] Rivaroxaban 15 mg 06/05/17 08:00 06/05/17 07:45 Xarelto PO 06/14/17 23:59 15 mg BIDCM [facility] Administration Rivaroxaban 20 mg 06/15/17 06:00 Xarelto PO DAILY@0600 [facility] Senna/Docusate Sodium 2 tablet 06/05/17 06:00 06/05/17 05:14 Senokot-S, Gloria-Colace PO 2 tablet BID [facility] Administration Tuberculin PPD 5 tu 06/12/17 10:00 Tubersol, Aplisol, Ppd ID 06/12/17 10:01 X1 ONE Problem List (Last Updated 04/23/17 @ 09:56 by Armida Neal) Acute delirium (Acute) Chest pain (Acute) Shortness of breath (Acute) Diabetes mellitus (Chronic) Anxiety (Chronic) Edema (Chronic) Vital Signs Temp Pulse Resp BP Pulse Ox 97.2 F L 76 18 136/64 H 96 06/04/17 15:50 06/04/17 15:50 06/04/17 15:50 06/04/17 15:50 06/04/17 15:50 Oxygen Delivery Method Room Air Weight: 98.9 kg Body Mass Index (BMI) 38.6 Finger Stick Blood Glucose 173 Sodium 140 mmol/L (136-145) 06/05/17 06:44 Potassium 3.8 mmol/L (3.5-5.1) 06/05/17 06:44 Chloride 106 mmol/L (98-107) 06/05/17 06:44 Carbon Dioxide 25.0 mmol/L (21.0-32.0) 06/05/17 06:44 Anion Gap 9 (5-15) 06/05/17 06:44 BUN 15 mg/dL (7-18) 06/05/17 06:44 Creatinine 0.60 mg/dL (0.55-1.02) 06/05/17 06:44 Est GFR (MDRD) Af Amer 125 mL/min (>60) 06/05/17 06:44 Est GFR (MDRD) Non-Af 103 mL/min (>60) 06/05/17 06:44 BUN/Creatinine Ratio 25.0 RATIO (10-20) H 06/05/17 06:44 Glucose 178 mg/dL (74-106) H 06/05/17 06:44 Assessment/Plan: Psychotropic Medications: Unnecessary Medications: Bowel Regimen: - Provider Comments Provider responsibility: Provider responsible to enter orders to implement recommendations Provider Comments to Recommendations by Pharmacy: Agree
[2017-06-05 14:46] LABS: Pathologist Review Reviewed
[2017-06-05 15:41] VITALS: BP 154/79; PULSE 64; RESP 20; TEMP 36.4; O2SAT 97
[2017-06-05] MEDS: ALPRAZolam 0.5 MG Tablet PO (21:04)
[2017-06-05] MEDS: Menthol/Lanolin/Calamine/Znox 113 GM Tube 1 APPLIC TOPICAL (21:04)
[2017-06-05] MEDS: QUEtiapine 25 MG Tablet PO (21:04)
[2017-06-06] MEDS: LINAGLIPTIN 5 MG TABLET PO (06:33)
[2017-06-06] MEDS: Empagliflozin 25 MG Tablet PO (06:33)
[2017-06-06] MEDS: Senna/Docusate Sodium 1 Tablet 2 TABLET PO ×2 (06:33→16:52)
[2017-06-06] MEDS: dilTIAZem CD 240 MG Capsule PO (06:33)
[2017-06-06] MEDS: Menthol/Lanolin/Calamine/Znox 113 GM Tube 1 APPLIC TOPICAL ×2 (06:34→21:05)
[2017-06-06 06:51] LABS: Bedside Glucose 146 mg/dL (70-110)
[2017-06-06] MEDS: Rivaroxaban 15 MG Tablet PO ×2 (08:20→16:53)
[2017-06-06] MEDS: oxyCODONE 5 MG Tablet PO ×2 (10:06→20:14)
[2017-06-06] MEDS: Bisacodyl 10 MG Suppository RECTAL (10:07)
--- NOTE | 2017-06-06 12:08 | NURSING ---
Per. Dr. Walker's office, Dr. Walker will come see patient on TCU. If patient discharges before next week, call and schedule appt.
[2017-06-06 16:00] VITALS: BP 126/71; PULSE 72; RESP 18; TEMP 36.6; O2SAT 98
--- NOTE | 2017-06-06 16:09 | NURSING ---
Patient having complaints of burning on urination, groin pain and cloudy urine. Feels like she is getting a UTI. Dr. Weldon made aware, NO for UA C&S.
[2017-06-06 18:53] LABS: Mucous, Urine 0 SEEN /hpf (<or=2+)
[2017-06-06 18:54] LABS: Color, Urine Yellow (Yellow); Glucose, Dipstick 1000 mg/dl (Normal); Ketone-Dipstick Negative (Negative); Leukocyte Esterase-Dipstick 100 /ul (Negative); Nitrite-Dipstick Negative (Negative); Occult Blood-Urine 25 /ul (Negative); Protein-Dipstick Negative (Negative); Specific Gravity, Urine 1.015 (1.002-1.030); Urine Bilirubin Dipstick Negative (Negative); Urine Clarity Cloudy (Clear); Urine Urobilinogen Normal (Normal)
[2017-06-06 19:06] LABS: Squamous Epithelial Cells - UA 0-5 SEEN /hpf (5-10)
[2017-06-06 19:07] LABS: Bacteria 4+ /hpf (None Seen); White Blood Cells 25-50 SEEN /hpf (0-5)
[2017-06-06 19:08] LABS: Red Blood Cells-Urine 0-5 SEEN /hpf (0-5)
[2017-06-06] MEDS: ALPRAZolam 0.5 MG Tablet PO (21:05)
[2017-06-06] MEDS: QUEtiapine 25 MG Tablet PO (21:05)
[2017-06-07] MEDS: LINAGLIPTIN 5 MG TABLET PO (06:33)
[2017-06-07] MEDS: Empagliflozin 25 MG Tablet PO (06:33)
[2017-06-07] MEDS: Ciprofloxacin 250 MG Tablet PO ×2 (06:33→16:33)
[2017-06-07] MEDS: dilTIAZem CD 240 MG Capsule PO (06:34)
[2017-06-07] MEDS: Menthol/Lanolin/Calamine/Znox 113 GM Tube 1 APPLIC TOPICAL ×2 (06:35→21:10)
[2017-06-07 07:01] LABS: Bedside Glucose 125 mg/dL (70-110)
[2017-06-07] MEDS: Rivaroxaban 15 MG Tablet PO ×2 (08:30→16:33)
[2017-06-07] MEDS: oxyCODONE 5 MG Tablet PO ×2 (11:22→17:26)
[2017-06-07 15:06] VITALS: BP 139/84; PULSE 80; RESP 18; TEMP 36.4; O2SAT 95
[2017-06-07] MEDS: Acetaminophen 500 MG Tablet 1000 MG PO (21:09)
[2017-06-07] MEDS: QUEtiapine 25 MG Tablet PO (21:10)
[2017-06-07] MEDS: ALPRAZolam 0.5 MG Tablet PO (21:15)
[2017-06-08] MEDS: Ciprofloxacin 250 MG Tablet PO (04:59)
[2017-06-08] MEDS: dilTIAZem CD 240 MG Capsule PO (04:59)
[2017-06-08] MEDS: Empagliflozin 25 MG Tablet PO (04:59)
[2017-06-08] MEDS: Menthol/Lanolin/Calamine/Znox 113 GM Tube 1 APPLIC TOPICAL ×2 (04:59→21:21)
[2017-06-08] MEDS: LINAGLIPTIN 5 MG TABLET PO (05:00)
[2017-06-08] MEDS: Senna/Docusate Sodium 1 Tablet 2 TABLET PO ×2 (05:00→16:57)
[2017-06-08 06:41] LABS: Bedside Glucose 139 mg/dL (70-110)
[2017-06-08] MEDS: Rivaroxaban 15 MG Tablet PO ×2 (08:23→16:58)
[2017-06-08] MEDS: oxyCODONE 5 MG Tablet PO ×2 (08:26→17:02)
--- NOTE | 2017-06-08 08:45 | NURSING ---
Dr Weldon notified of prelim results of ESBL producing organism & ECOLI results. pt placed in contact isolation, Dr Weldon reviewing sensitivities and will enter orders. updated pt on all.
--- NOTE | 2017-06-08 09:21 | NURSING ---
Addendum entered by Neelam Britney Lior 06/08/17 18:59: 1600 [facility] CALLED AND WILL NOT BE HERE UNTIL 7P OR LATER. RN SCIENTIFIC PROGRAMMER NOTIFIED, PT REFUSING TO BE STUCK UNLESS SHE IS GETTING A PICC PLACED. PT WAITING FOR PICC PLACEMENT TO GET IV ATB'S. Original Note: Addendum entered by Neelam Tinajero 06/08/17 12:40: DRAG CAR RACERARON GANDHI WILL BE HERE AROUND 2 OR 3P FOR PICC INSERTION. Original Note: Addendum entered by Neelam Tinajero 06/08/17 09:33: consent obtained from pt, spoke with Ann at [facility], RN will call. Original Note: Pt very hard stick and reports that she has been stuck 13 times and does not want to be poked several times. Dr faulkner notified, new order for picc or midline insertion. Will notify [employer].
[2017-06-08 14:09] VITALS: BP 138/56; PULSE 78; RESP 20; TEMP 36.6; O2SAT 97
--- NOTE | 2017-06-08 18:57 | SUR.HOLD ---
HIRAM SHARP FROM [facility] HERE TO INSERT A MIDLINE PER PT REQUEST. DOES NOT WANT A PICC LINE.
[2017-06-08] MEDS: 0.9% NaCl Midline IV Flush IV (19:58)
[2017-06-08] MEDS: 0.9% NaCl IVPB Med Flush (250 mL) 15 ML IV (19:58)
--- NOTE | 2017-06-08 20:29 | NURSING ---
Pt remains in precautions this shift d/t ecoli in pts urine.
[2017-06-08] MEDS: ALPRAZolam 0.5 MG Tablet PO (21:21)
[2017-06-08] MEDS: QUEtiapine 25 MG Tablet 12.5 MG PO (21:21)
[2017-06-09] MEDS: Menthol/Lanolin/Calamine/Znox 113 GM Tube 1 APPLIC TOPICAL ×2 (05:20→21:02)
[2017-06-09] MEDS: dilTIAZem CD 240 MG Capsule PO (05:20)
[2017-06-09] MEDS: 0.9% NaCl Midline IV Flush IV ×3 (05:20→21:02)
[2017-06-09] MEDS: Senna/Docusate Sodium 1 Tablet 2 TABLET PO ×2 (05:21→18:04)
[2017-06-09] MEDS: Empagliflozin 25 MG Tablet PO (05:21)
[2017-06-09] MEDS: LINAGLIPTIN 5 MG TABLET PO (05:21)
[2017-06-09] MEDS: oxyCODONE 5 MG Tablet PO ×3 (05:34→21:06)
[2017-06-09 06:40] LABS: Bedside Glucose 131 mg/dL (70-110)
[2017-06-09] MEDS: Rivaroxaban 15 MG Tablet PO ×2 (08:12→18:04)
--- NOTE | 2017-06-09 08:30 | NURSING ---
all care is provided in pt room d/t isolation precautions.
[2017-06-09 14:44] VITALS: BP 144/71; PULSE 82; RESP 20; TEMP 36.4; O2SAT 97
--- NOTE | 2017-06-09 15:18 | NURSING ---
pt has asked this nurse several times in the last two days when her IV antibiotic is complete. Explained to pt more than once that it is finished on June first but then told HAND FUR CLEANER that nurse stated her ATB was finished on May first. HAND FUR CLEANER explained that it is June 09. Pt noted to repeat self and having difficulty remembering things. Will continue to monitor. Message left for social studies teacher
[2017-06-09] MEDS: QUEtiapine 25 MG Tablet 12.5 MG PO (21:02)
[2017-06-09] MEDS: ALPRAZolam 0.5 MG Tablet PO (21:02)
[2017-06-10] MEDS: dilTIAZem CD 240 MG Capsule PO (05:12)
[2017-06-10] MEDS: LINAGLIPTIN 5 MG TABLET PO (05:12)
[2017-06-10] MEDS: Senna/Docusate Sodium 1 Tablet 2 TABLET PO ×2 (05:12→17:51)
[2017-06-10] MEDS: Empagliflozin 25 MG Tablet PO (05:12)
[2017-06-10] MEDS: 0.9% NaCl Midline IV Flush IV ×3 (05:12→21:41)
[2017-06-10] MEDS: Menthol/Lanolin/Calamine/Znox 113 GM Tube 1 APPLIC TOPICAL ×2 (05:13→21:40)
[2017-06-10 06:26] LABS: Bedside Glucose 145 mg/dL (70-110)
[2017-06-10] MEDS: Rivaroxaban 15 MG Tablet PO ×2 (08:37→17:50)
--- NOTE | 2017-06-10 13:43 | CASEMGMT ---
Insurance Clinical information faxed. Pending continued stay approval at this time. Auth#[id number] Hailee HAM, MARKET DEVELOPMENT TRAINER
[2017-06-10] MEDS: oxyCODONE 5 MG Tablet PO ×2 (15:36→21:40)
[2017-06-10 15:57] VITALS: BP 157/83; PULSE 69; RESP 16; TEMP 36.1; O2SAT 92
--- NOTE | 2017-06-10 16:19 | CASEMGMT ---
Brief interview for mental status (BIMS) and resident mood interview (PHQ-9) completed on this day. BIMS score 15/15. PHQ-9 score 10/14
[2017-06-10 20:15] VITALS: RESP 16
[2017-06-10] MEDS: QUEtiapine 25 MG Tablet 12.5 MG PO (21:41)
[2017-06-10] MEDS: ALPRAZolam 0.5 MG Tablet PO (21:41)
[2017-06-11] MEDS: Menthol/Lanolin/Calamine/Znox 113 GM Tube 1 APPLIC TOPICAL ×2 (05:36→22:05)
[2017-06-11] MEDS: dilTIAZem CD 240 MG Capsule PO (05:37)
[2017-06-11] MEDS: 0.9% NaCl Midline IV Flush IV ×3 (05:37→22:03)
[2017-06-11] MEDS: oxyCODONE 5 MG Tablet PO ×3 (05:37→22:04)
[2017-06-11] MEDS: Empagliflozin 25 MG Tablet PO (05:37)
[2017-06-11] MEDS: Senna/Docusate Sodium 1 Tablet 2 TABLET PO ×2 (05:37→17:57)
[2017-06-11] MEDS: LINAGLIPTIN 5 MG TABLET PO (05:37)
[2017-06-11] MEDS: Polyethylene Glycol 3350 17 GM PACKET PO (05:37)
[2017-06-11 06:31] LABS: Bedside Glucose 127 mg/dL (70-110)
[2017-06-11] MEDS: Rivaroxaban 15 MG Tablet PO ×2 (10:05→17:57)
[2017-06-11] MEDS: 0.9% NaCl IVPB Med Flush (250 mL) 15 ML IV (14:07)
[2017-06-11 15:48] VITALS: BP 149/82; PULSE 74; RESP 18; TEMP 36.6; O2SAT 97
--- NOTE | 2017-06-11 19:40 | PCM.TCUNOT ---
Subjective: Resident has right eye discomfort. She states with PPD skin test was being placed, the liquid squirt from her left arm, hitting her right arm, then dripping into her right eye. She states she asked nursing staff whether she was getting eye drops. She then noticed watery right eye, swelling right eyelid, itchy right eye, pain, discomfort of right eye. She has swelling of right upper eyelid as well. Vitals/I&O's: Vital Signs Temp Pulse Resp BP Pulse Ox 97.8 F 74 18 149/82 H 97 06/11/17 15:48 06/11/17 15:48 06/11/17 15:48 06/11/17 15:48 06/11/17 15:48 Oxygen Delivery Method Room Air Weight: 98.9 kg Body Mass Index (BMI) 38.6 Finger Stick Blood Glucose 173 Intake and Output for Last 24 Hours 06/09/17 06/10/17 06/11/17 23:59 23:59 23:59 Intake Total 740 / 740 600 / 600 1080 / 1080 Balance 740 / 740 600 / 600 1080 / 1080 Microbiology Past 72 Hours 06/06/17 15:30 Urine, Clean Catch Urine Culture - Final Escherichia coli Laboratory Results 06/11/17 06:24: POC Glucose 127 H Past Medical History Past Medical History (Chronic Problems): Chronic Problems (Last Updated 04/23/17 @ 09:56 by Armida Neal) Diabetes mellitus (Chronic) Anxiety (Chronic) Edema (Chronic) Right knee meniscus surgery (Chronic) Afib (Chronic) SBO (small bowel obstruction) (Chronic) Hyperlipidemia (Chronic) Osteoarthritis (Chronic) Hypertension (Chronic) Type 2 diabetes mellitus (Chronic) Allergies ramelteon [From Rozerem] Allergy (Verified 05/30/17 09:30) Other bupropion Adverse Reaction (Verified 05/30/17 09:30) Other UNKNOWN bupropion HCl [From Wellbutrin] Adverse Reaction (Verified 05/30/17 09:30) Other UNKNOWN dexfenfluramine HCl [From Redux] Adverse Reaction (Verified 05/30/17 09:30) Unknown hydrochlorothiazide Adverse Reaction (Verified 05/30/17 09:30) Other UNKNOWN ketorolac tromethamine [From Toradol] Adverse Reaction (Verified 05/30/17 09:30) Itching oxaprozin [From Daypro] Adverse Reaction (Verified 05/30/17 09:30) Other UNKNOWN Home Medications: Ambulatory Orders Medication Instructions Recorded ALPRAZolam [Xanax] 0.5 mg PO QHS 12/11/13 Diltiazem CD [Cardizem CD] 240 mg PO DAILY 12/11/13 Canagliflozin [Invokana] 300 mg PO DAILY 09/12/16 Oxycodone HCl/Acetaminophen 1 - 2 tablet PO Q6H PRN PRN #56 05/15/17 [Percocet 5-325] tablet Rivaroxaban [Xarelto] 15 mg PO QPM 05/30/17 Sitagliptin Phosphate [Januvia] 100 mg PO DAILY 05/30/17 Quetiapine Fumarate [Seroquel] 25 mg PO QHS 06/04/17 Surgical History: arthroscopy, knee - Right knee meniscal repair, cholecystectomy, - - 2013 had bowel resection, also had whipple procedure in [place] 2007-, tubal ligation, carpal tunnel in wrist, shoulder and hand surgery hysterectemy, bladder suspension, wall between vagina and colon. Psychiatric History: Anxiety LENS GRINDER APPRENTICE History: No pertinent LENS GRINDER APPRENTICE history Lives: Alone Smoking Status: Never smoker Tobacco Use: Non-smoker Alcohol: None Drugs: None - *Family History Paternal History Items: - - afib Review of Systems Constitutional: Denies: Chills, Fever, Weight Change Eyes: Reports: Blurred vision - OD., Conjunctivae Inflammation - OD., Drainage - OD., Eyelid Inflammation - OD., Vision Change - OD. HEENT: Denies: Head Aches, Sinus Congestion, Sinus Drainage Cardiovascular: Denies: Chest Pain, Palpitations Respiratory: Denies: Cough, Shortness of breath at rest, Sputum production Gastrointestinal: Denies: Abdominal Pain, Nausea, Vomiting Genitourinary: Denies: Dysuria Musculoskeletal: Denies: Joint Pain, Joint Tenderness Skin: Denies: Rash, Wounds Neurological: Denies: Numbness, Tingling, Focal weakness Psychiatric: Denies: Anxiety, Depression, Homicidal Ideations, Suicidal Ideations Hematologic/ Lymphatic: Denies: Easy Bruising, Easy Bleeding Patient Problems: Active and Suspected Problems (Last Updated 04/23/17 @ 09:56 by Armida Neal) Acute delirium (Acute) Chest pain (Acute) Shortness of breath (Acute) - Physical Exam General: Alert, Oriented x3, Cooperative HEENT: Atraumatic, PERRLA, EOMI, Normocephalic, - - Right eye with erythema, right upper eyelid swollen. Neck: Supple, No JVD, Negative Carotid Bruits Lungs: Clear to auscultation, Normal air movement Cardiovascular: Regular rate, No murmurs Abdomen: Bowel Sounds Present, Soft, Non Tender Extremities: No edema, Capillary Refill Less than 3 Seconds Skin: No rashes, No breakdown Musculoskeletal: No Tenderness to Palpation of Joints or Extremities Neurological: Cranial nerves II-XII grossly intact Psych/Mental Status: Normal Affect, Appropriate Vital Signs Temp Pulse Resp BP Pulse Ox 97.8 F 74 18 149/82 H 97 06/11/17 15:48 06/11/17 15:48 06/11/17 15:48 06/11/17 15:48 06/11/17 15:48 Oxygen Delivery Method Room Air Weight: 98.9 kg Body Mass Index (BMI) 38.6 Finger Stick Blood Glucose 173 Intake and Output for Last 24 Hours 06/09/17 06/10/17 06/11/17 23:59 23:59 23:59 Intake Total 740 / 740 600 / 600 1080 / 1080 Balance 740 / 740 600 / 600 1080 / 1080 Microbiology Past 72 Hours 06/06/17 15:30 Urine Culture - Final Urine, Clean Catch Escherichia coli POC Glucose 06/11/17 06:24 POC Glucose 127 H Assessment/Plan Active and Suspected Problems (Last Updated 04/23/17 @ 09:56 by Armida Neal) Acute delirium (Acute) Chest pain (Acute) Shortness of breath (Acute) 76 year old female with below past medical history hospitalized for acute delirium secondary to polypharmacy, complicated by right lower extremity DVT, chest pain, partially treated urinary tract infection, admitted to TCU with debility, here for rehabilitation, strengthening, prior to discharge home alone. Hordeolum (OD) - Warm compresses qshift. Conjunctivitis (OD) - Order Cipro eyedrops for 10 days until clear. Of note, I find resident's story of Tuberculin liquid squirt in her eye very unlikely, but I did not argue with her.
--- NOTE | 2017-06-11 19:45 | PN_ITS ---
Subjective: Resident has right eye discomfort. She states with PPD skin test was being placed, the liquid squirt from her left arm, hitting her right arm, then dripping into her right eye. She states she asked nursing staff whether she was getting eye drops. She then noticed watery right eye, swelling right eyelid , itchy right eye, pain, discomfort of right eye. She has swelling of right upper eyelid as well. Vitals/I&O's: Vital Signs Temp Pulse Resp BP Pulse Ox 97.8 F 74 18 149/82 H 97 06/11/17 15:48 06/11/17 15:48 06/11/17 15:48 06/11/17 15:48 06/11/17 15:48 Oxygen Delivery Method Room Air Weight: 98.9 kg Body Mass Index (BMI) 38.6 Finger Stick Blood Glucose 173 Intake and Output for Last 24 Hours 06/09/17 06/10/17 06/11/17 23:59 23:59 23:59 Intake Total 740 / 740 600 / 600 1080 / 1080 Balance 740 / 740 600 / 600 1080 / 1080 Microbiology Past 72 Hours 06/06/17 15:30 Urine, Clean Catch Urine Culture - Final Escherichia coli Laboratory Results 06/11/17 06:24: POC Glucose 127 H Past Medical History Past Medical History (Chronic Problems): Chronic Problems (Last Updated 04/23/17 @ 09:56 by Armida Neal) Diabetes mellitus (Chronic) Anxiety (Chronic) Edema (Chronic) Right knee meniscus surgery (Chronic) Afib (Chronic) SBO (small bowel obstruction) (Chronic) Hyperlipidemia (Chronic) Osteoarthritis (Chronic) Hypertension (Chronic) Type 2 diabetes mellitus (Chronic) Allergies ramelteon [From Rozerem] Allergy (Verified 05/30/17 09:30) Other bupropion Adverse Reaction (Verified 05/30/17 09:30) Other UNKNOWN bupropion HCl [From Wellbutrin] Adverse Reaction (Verified 05/30/17 09:30) Other UNKNOWN dexfenfluramine HCl [From Redux] Adverse Reaction (Verified 05/30/17 09:30) Unknown hydrochlorothiazide Adverse Reaction (Verified 05/30/17 09:30) Other UNKNOWN ketorolac tromethamine [From Toradol] Adverse Reaction (Verified 05/30/17 09:30) Itching oxaprozin [From Daypro] Adverse Reaction (Verified 05/30/17 09:30) Other UNKNOWN Home Medications: Ambulatory Orders Medication Instructions Recorded ALPRAZolam [Xanax] 0.5 mg PO QHS 12/11/13 Diltiazem CD [Cardizem CD] 240 mg PO DAILY 12/11/13 Canagliflozin [Invokana] 300 mg PO DAILY 09/12/16 Oxycodone HCl/Acetaminophen 1 - 2 tablet PO Q6H PRN PRN #56 05/15/17 [Percocet 5-325] tablet Rivaroxaban [Xarelto] 15 mg PO QPM 05/30/17 Sitagliptin Phosphate [Januvia] 100 mg PO DAILY 05/30/17 Quetiapine Fumarate [Seroquel] 25 mg PO QHS 06/04/17 Surgical History: arthroscopy, knee - Right knee meniscal repair, cholecystectomy, - - 2013 had bowel resection, also had whipple procedure in [place] 2007-, tubal ligation, carpal tunnel in wrist, shoulder and hand surgery hysterectemy, bladder suspension, wall between vagina and colon. Psychiatric History: Anxiety MECHANICAL SYSTEM TECHNICIAN History: No pertinent MECHANICAL SYSTEM TECHNICIAN history Lives: Alone Smoking Status: Never smoker Tobacco Use: Non-smoker Alcohol: None Drugs: None - *Family History Paternal History Items: - - afib Review of Systems Constitutional: Denies: Chills, Fever, Weight Change Eyes: Reports: Blurred vision - OD., Conjunctivae Inflammation - OD., Drainage - OD., Eyelid Inflammation - OD., Vision Change - OD. HEENT: Denies: Head Aches, Sinus Congestion, Sinus Drainage Cardiovascular: Denies: Chest Pain, Palpitations Respiratory: Denies: Cough, Shortness of breath at rest, Sputum production Gastrointestinal: Denies: Abdominal Pain, Nausea, Vomiting Genitourinary: Denies: Dysuria Musculoskeletal: Denies: Joint Pain, Joint Tenderness Skin: Denies: Rash, Wounds Neurological: Denies: Numbness, Tingling, Focal weakness Psychiatric: Denies: Anxiety, Depression, Homicidal Ideations, Suicidal Ideations Hematologic/ Lymphatic: Denies: Easy Bruising, Easy Bleeding Patient Problems: Active and Suspected Problems (Last Updated 04/23/17 @ 09:56 by Armida Neal ) Acute delirium (Acute) Chest pain (Acute) Shortness of breath (Acute) - Physical Exam General: Alert, Oriented x3, Cooperative HEENT: Atraumatic, PERRLA, EOMI, Normocephalic, - - Right eye with erythema, right upper eyelid swollen. Neck: Supple, No JVD, Negative Carotid Bruits Lungs: Clear to auscultation, Normal air movement Cardiovascular: Regular rate, No murmurs Abdomen: Bowel Sounds Present, Soft, Non Tender Extremities: No edema, Capillary Refill Less than 3 Seconds Skin: No rashes, No breakdown Musculoskeletal: No Tenderness to Palpation of Joints or Extremities Neurological: Cranial nerves II-XII grossly intact Psych/Mental Status: Normal Affect, Appropriate Vital Signs Temp Pulse Resp BP Pulse Ox 97.8 F 74 18 149/82 H 97 06/11/17 15:48 06/11/17 15:48 06/11/17 15:48 06/11/17 15:48 06/11/17 15:48 Oxygen Delivery Method Room Air Weight: 98.9 kg Body Mass Index (BMI) 38.6 Finger Stick Blood Glucose 173 Intake and Output for Last 24 Hours 06/09/17 06/10/17 06/11/17 23:59 23:59 23:59 Intake Total 740 / 740 600 / 600 1080 / 1080 Balance 740 / 740 600 / 600 1080 / 1080 Microbiology Past 72 Hours 06/06/17 15:30 Urine Culture - Final Urine, Clean Catch Escherichia coli POC Glucose 06/11/17 06:24 POC Glucose 127 H Assessment/Plan Active and Suspected Problems (Last Updated 04/23/17 @ 09:56 by Armida Neal ) Acute delirium (Acute) Chest pain (Acute) Shortness of breath (Acute) 76 year old female with below past medical history hospitalized for acute delirium secondary to polypharmacy, complicated by right lower extremity DVT, chest pain, partially treated urinary tract infection, admitted to TCU with debility, here for rehabilitation, strengthening, prior to discharge home alone. * Hordeolum (OD) - Warm compresses qshift. * Conjunctivitis (OD) - Order Cipro eyedrops for 10 days until clear. Of note, I find resident's story of Tuberculin liquid squirt in her eye very unlikely, but I did not argue with her.
[2017-06-11] MEDS: QUEtiapine 25 MG Tablet 12.5 MG PO (22:04)
[2017-06-11] MEDS: ALPRAZolam 0.5 MG Tablet PO (22:05)
[2017-06-11] MEDS: Ciprofloxacin 0.3% 2.5ml Bottle 1 DRP RIGHT EYE (22:05)
--- NOTE | 2017-06-12 00:39 | NURSING ---
Pt remains in contact precautions during shift d/t EBL in urine.
[2017-06-12] MEDS: Ciprofloxacin 0.3% 2.5ml Bottle 1 DRP RIGHT EYE ×6 (02:21→21:04)
[2017-06-12] MEDS: Polyethylene Glycol 3350 17 GM PACKET PO (05:31)
[2017-06-12] MEDS: Senna/Docusate Sodium 1 Tablet 2 TABLET PO ×2 (05:31→17:16)
[2017-06-12] MEDS: dilTIAZem CD 240 MG Capsule PO (05:31)
[2017-06-12] MEDS: LINAGLIPTIN 5 MG TABLET PO (05:31)
[2017-06-12] MEDS: Empagliflozin 25 MG Tablet PO (05:31)
[2017-06-12] MEDS: 0.9% NaCl Midline IV Flush IV ×3 (05:32→21:29)
[2017-06-12] MEDS: Menthol/Lanolin/Calamine/Znox 113 GM Tube 1 APPLIC TOPICAL ×2 (05:32→21:03)
[2017-06-12] MEDS: oxyCODONE 5 MG Tablet PO ×4 (05:38→21:17)
[2017-06-12 06:25] LABS: Anion Gap 4 (5-15); BUN 14 mg/dL (7-18); BUN/Creat Ratio 29.3 RATIO (10-20); Calcium,Total 9.4 mg/dL (8.5-10.1); Chloride 106 mmol/L (98-107); Creatinine, Serum 0.48 mg/dL (0.55-1.02); EST Glomerular Filtration Rate 135 mL/min (>60); Est Glom Filt Rate - Afr Amer 163 mL/min (>60); Estimated Creatinine Clearance 40.21 ml/min; Glucose 115 mg/dL (74-106); Potassium 4.1 mmol/L (3.5-5.1); Sodium Level 142 mmol/L (136-145)
[2017-06-12 06:26] LABS: Absolute Lymphocyte Count 2.91 X10^3/ul (0.83-4.51); Absolute Neutrophil Count 3.6 X10^3/uL (2.0-7.7); Basophil# 0.03 X10^3/uL; Basophil% 0.4 % (0-1); Eosinophil# 0.05 X10^3/uL; Eosinophils% 0.7 % (0-5); Hematocrit 39.6 % (37-47); Lymphocyte # 2.91 X10^3/ul (4.0); Lymphocyte % 40.7 % (19-41); Mean Corp Hgb Conc 32.8 g/gl (32-36); Mean Corpuscular Hgb 31.2 pg (27.0-32.0); Mean Platelet Vol. 10.2 fl (6.2-12.0); Monocyte# 0.45 X10^3/uL; Monocyte% 6.3 % (0-10); Neutrophil # 3.57 X10^3/uL (2.7-7.7); Neutrophil % 49.9 % (47-70); Platelet Count 176 K/mm3 (150-450); RBC Distribution Width CV 14.4 % (11.6-14.6); RBC Distribution Width SD 48.1 fl (35.1-43.9); Red Blood Count 4.17 M/mm3 (4.2-5.4); White Blood Count 7.2 K/mm3 (4.4-11.0)
[2017-06-12 06:28] LABS: POSITIVE COUNT YES; POSITIVE DIFFERENTIAL NO; POSITIVE MORPHOLOGY YES
[2017-06-12 06:36] LABS: Bedside Glucose 123 mg/dL (70-110)
[2017-06-12] MEDS: Rivaroxaban 15 MG Tablet PO ×2 (08:02→17:16)
[2017-06-12 09:18] LABS: Pathologist Review Reviewed
[2017-06-12] MEDS: Tuberculin,Purif.prot.deriv. 50 TU/ML Vial 5 ML ID (10:28)
--- NOTE | 2017-06-12 10:50 | CASEMGMT ---
Plan of care meeting held. Resident present as well as resident family. Tentative discharge date set for 06/19/17. Resident plans to discharge home alone with daughter to stay with resident for the first few days at home. Physical therapy is recommending for resident to have continued services through outpatient physical therapy at time of discharge. Resident is agreeable to recommendation and requesting for outpatient physical therapy to be set up through [facility]. Resident reporting to have all needed durable medical equipment already set up within the home. Resident to continue with further care and treatment on the Transitional Care Unit at this time. Support given. Will continue to follow to set up outpatient physical therapy. Proposed discharge date: 06/19/17 PLAN: Discharge home alone with outpatient physical therapy - resident daughter to stay with resident for the first few days at home. Hailee HAM, ELEMENTARY SCHOOL SOCIAL WORKER
--- NOTE | 2017-06-12 12:40 | NURSING ---
all care provided in room d/t isolation
--- NOTE | 2017-06-12 12:47 | MDS.RN ---
Information for the mds was obtained from review of the clinical record, interview of resident, staff, and direct observation of resident's care.
--- NOTE | 2017-06-12 14:32 | NURSING ---
flight operations engineerjasvir recommending diet change to 1600 calorie cardiac, pt started refusing food over weekend d/t last diet changed. Real Time Trader will be up to speak with pt. Kept diet at regular for now.
[2017-06-12 15:22] VITALS: BP 137/51; PULSE 72; RESP 18; TEMP 36.7; O2SAT 95
[2017-06-12 20:00] VITALS: RESP 18
--- NOTE | 2017-06-12 20:58 | DCINST_ITS ---
- Discharge Diagnoses Current Active Problems: Current Active and Chronic Problems (Last Updated 04/23/17 @ 09:56 by Armida Neal) Acute delirium (Acute) Chest pain (Acute) Shortness of breath (Acute) Diabetes mellitus (Chronic) Anxiety (Chronic) Edema (Chronic) You will use the following diet at home:: No restrictions, Regular Your food should be the consistency of: Regular Your liquids should be the consistency of: Regular/Thin Discharge Activity: Return to Normal Activity, May Shower, Use Walker Weight Bearing Status: Weight bearing as tolerated Call your doctor if you observe: Fever of 101 or Higher, Inability to urinate, Inability to have a bowel movement, Shortness of breath, Chest pain, Uncontrolled pain Allergies/Adverse Reactions: Allergies ramelteon [From Rozerem] Allergy (Verified 05/30/17 09:30) Other bupropion Adverse Reaction (Verified 05/30/17 09:30) Other UNKNOWN bupropion HCl [From Wellbutrin] Adverse Reaction (Verified 05/30/17 09:30) Other UNKNOWN dexfenfluramine HCl [From Redux] Adverse Reaction (Verified 05/30/17 09:30) Unknown hydrochlorothiazide Adverse Reaction (Verified 05/30/17 09:30) Other UNKNOWN ketorolac tromethamine [From Toradol] Adverse Reaction (Verified 05/30/17 09:30) Itching oxaprozin [From Daypro] Adverse Reaction (Verified 05/30/17 09:30) Other UNKNOWN Medications to take at Discharge ALPRAZolam [Xanax] 0.5 mg PO QHS 12/11/13 Diltiazem CD [Cardizem CD] 240 mg PO DAILY 12/11/13 Oxycodone HCl/Acetaminophen [Percocet 5-325] 1 - 2 tablet PO Q6H PRN PRN #56 tablet 05/15/17 Sitagliptin Phosphate [Januvia] 100 mg PO DAILY 05/30/17 Acetaminophen [Tylenol] 1,000 mg PO Q8H PRN PRN tablet 06/12/17 Ciprofloxacin 0.3% [Ciloxan] 1 drop RIGHT EYE Q4 bottle 06/12/17 Empagliflozin [Jardiance] 25 mg PO DAILY #30 tab 06/12/17 Menthol/Lanolin/Calamine/Znox [Calmoseptine Ointment] 1 applic TOPICAL 0600, 2200 tube 06/12/17 Ondansetron [Zofran Odt] 4 mg PO Q6H PRN PRN #30 tab 06/12/17 Oxycodone [Oxyir] 5 - 10 mg PO Q4H PRN PRN tablet 06/12/17 Rivaroxaban [Xarelto] 20 mg PO DAILY@0600 #30 tab 06/12/17 The following prescriptions were given: Ondansetron [Zofran Odt] 4 mg PO Q6H PRN PRN #30 tab PRN Reason: Nausea Empagliflozin [Jardiance] 25 mg PO DAILY #30 tab Rivaroxaban [Xarelto] 20 mg PO DAILY@0600 #30 tab Primary Care Physician: Luanne Aquino MD [Primary Care Provider] - Please follow up with your Primary Care Physician in: 1 week. Please Follow Up With: Luanne Aquino MD When: [phone] Please Follow Up With: Mendy Walker DO When: 1 WEEK [phone] Proposed Discharge Date: 06/19/17
--- NOTE | 2017-06-12 20:59 | DS.PCM_ITS ---
Discharge Date and Diagnosis - Problem List Patient Problems: Active and Suspected Problems (Last Updated 04/23/17 @ 09:56 by Armida Neal ) Acute delirium (Acute) Chest pain (Acute) Shortness of breath (Acute) Date of Admission: 06/04/17 Date of Discharge: 06/19/17 - Primary Discharge Diagnosis Active and Suspected Problems (Last Updated 04/23/17 @ 09:56 by Armida Neal ) Acute delirium (Acute) Chest pain (Acute) Shortness of breath (Acute) - Secondary Discharge Diagnosis Chronic Problems (Last Updated 04/23/17 @ 09:56 by Armida Neal) Diabetes mellitus (Chronic) Anxiety (Chronic) Edema (Chronic) Right knee meniscus surgery (Chronic) Afib (Chronic) SBO (small bowel obstruction) (Chronic) Hyperlipidemia (Chronic) Osteoarthritis (Chronic) Hypertension (Chronic) Type 2 diabetes mellitus (Chronic) Hospital Course and Treatment Imaging Results: 06/08/17 18:07 Diet: Regular Diet Is pt able to select menu?: Yes Labs (Last 48 Hours) 06/11/17 06/12/17 06/12/17 06:24 05:45 05:45 WBC 7.2 RBC 4.17 L Hgb 13.0 Hct 39.6 MCV 95.0 MCH 31.2 MCHC 32.8 RDW 14.4 RDW Differential 48.1 H Plt Count 176 MPV 10.2 Immature Gran % (Auto) 2.000 H Neut % (Auto) 49.9 Lymph % (Auto) 40.7 [place] % (Auto) 6.3 Eos % (Auto) 0.7 Baso % (Auto) 0.4 Absolute Neuts (auto) 3.6 Absolute Lymphs (auto) 2.91 Total Counted Not Reportable Diff Path Review Reviewed Sodium 142 Potassium 4.1 Chloride 106 Carbon Dioxide 32.0 Anion Gap 4 L BUN 14 Creatinine 0.48 L Estim Creat Clear Calc 40.21 Est GFR (MDRD) Af Amer 163 Est GFR (MDRD) Non-Af 135 BUN/Creatinine Ratio 29.3 H Glucose 115 H Calcium 9.4 POC Glucose 127 H 06/12/17 06:27 WBC RBC Hgb Hct MCV MCH MCHC RDW RDW Differential Plt Count MPV Immature Gran % (Auto) Neut % (Auto) Lymph % (Auto) [place] % (Auto) Eos % (Auto) Baso % (Auto) Absolute Neuts (auto) Absolute Lymphs (auto) Total Counted Diff Path Review Sodium Potassium Chloride Carbon Dioxide Anion Gap BUN Creatinine Estim Creat Clear Calc Est GFR (MDRD) Af Amer Est GFR (MDRD) Non-Af BUN/Creatinine Ratio Glucose Calcium POC Glucose 123 H Operations: None Procedures: None Summary of Care Provided: The patient is a 76 year old Female with below past medical history hospitalized for acute delirium secondary to polypharmacy, complicated by right lower extremity DVT, chest pain, partially treated urinary tract infection, admitted to TCU with debility, here for rehabilitation, strengthening, prior to discharge home alone. [] Discharge home alone with outpatient physical therapy, resident daughter to stay with resident for the first few days. Discharge Diet: No Restrictions Discharge Activity: Return to Normal Activity, May Shower, Use Walker Weight Bearing Status: Weight bearing as tolerated Call your doctor if you observe: Fever of 101 or Higher, Inability to urinate, Inability to have a bowel movement, Shortness of breath, Chest pain, Uncontrolled pain Home Medications: Medications to take at Discharge ALPRAZolam [Xanax] 0.5 mg PO QHS 12/11/13 Diltiazem CD [Cardizem CD] 240 mg PO DAILY 12/11/13 Oxycodone HCl/Acetaminophen [Percocet 5-325] 1 - 2 tablet PO Q6H PRN PRN #56 tablet 05/15/17 Sitagliptin Phosphate [Januvia] 100 mg PO DAILY 05/30/17 Acetaminophen [Tylenol] 1,000 mg PO Q8H PRN PRN tablet 06/12/17 Ciprofloxacin 0.3% [Ciloxan] 1 drop RIGHT EYE Q4 bottle 06/12/17 Empagliflozin [Jardiance] 25 mg PO DAILY #30 tab 06/12/17 Menthol/Lanolin/Calamine/Znox [Calmoseptine Ointment] 1 applic TOPICAL 0600, 2200 tube 06/12/17 Ondansetron [Zofran Odt] 4 mg PO Q6H PRN PRN #30 tab 06/12/17 Oxycodone [Oxyir] 5 - 10 mg PO Q4H PRN PRN tablet 06/12/17 Rivaroxaban [Xarelto] 20 mg PO DAILY@0600 #30 tab 06/12/17 Following Prescrptions Were Given to Patient: Ondansetron [Zofran Odt] 4 mg PO Q6H PRN PRN #30 tab PRN Reason: Nausea Empagliflozin [Jardiance] 25 mg PO DAILY #30 tab Rivaroxaban [Xarelto] 20 mg PO DAILY@0600 #30 tab Primary Care Physician: Luanne Aquino MD [Primary Care Provider] - Please follow up with your Primary Care Physician in: 1 week. Please Follow Up With: Luanne Aquino MD When: [phone] Please Follow Up With: Mendy Walker DO When: 1 WEEK [phone] Disposition: Home Minutes spent on discharge:: 30 Patient Condition:: Stable Medical Necessity - Tobacco Use Smoking Status: Never smoker Tobacco Use: Non-smoker Meaningful Use Info Meaningful Use Diagnoses (Choose all that apply): None applicable
[2017-06-12] MEDS: QUEtiapine 25 MG Tablet 12.5 MG PO (21:06)
[2017-06-12] MEDS: ALPRAZolam 0.5 MG Tablet PO (21:08)
[2017-06-12] MEDS: 0.9% NaCl IVPB Med Flush (250 mL) 15 ML IV (21:29)
--- NOTE | 2017-06-13 00:55 | NURSING ---
Pt remains in contact precautions this shift for ESBL in urine.
[2017-06-13] MEDS: Ciprofloxacin 0.3% 2.5ml Bottle 1 DRP RIGHT EYE ×6 (03:06→20:55)
[2017-06-13] MEDS: Polyethylene Glycol 3350 17 GM PACKET PO (06:56)
[2017-06-13] MEDS: Senna/Docusate Sodium 1 Tablet 2 TABLET PO (06:56)
[2017-06-13] MEDS: LINAGLIPTIN 5 MG TABLET PO (06:57)
[2017-06-13] MEDS: dilTIAZem CD 240 MG Capsule PO (06:57)
[2017-06-13] MEDS: Empagliflozin 25 MG Tablet PO (07:01)
[2017-06-13 07:05] LABS: Bedside Glucose 134 mg/dL (70-110)
[2017-06-13] MEDS: Rivaroxaban 15 MG Tablet PO ×2 (10:45→16:58)
[2017-06-13] MEDS: oxyCODONE 5 MG Tablet PO ×3 (11:45→21:10)
[2017-06-13 15:55] VITALS: BP 142/91; PULSE 77; RESP 18; TEMP 36.6; O2SAT 93
[2017-06-13] MEDS: Menthol/Lanolin/Calamine/Znox 113 GM Tube 1 APPLIC TOPICAL (20:55)
[2017-06-13] MEDS: QUEtiapine 25 MG Tablet 12.5 MG PO (20:56)
[2017-06-13] MEDS: ALPRAZolam 0.5 MG Tablet PO (21:10)
[2017-06-14] MEDS: Ciprofloxacin 0.3% 2.5ml Bottle 1 DRP RIGHT EYE ×6 (02:59→21:24)
[2017-06-14] MEDS: 0.9% NaCl Midline IV Flush IV ×3 (06:05→21:24)
[2017-06-14] MEDS: Menthol/Lanolin/Calamine/Znox 113 GM Tube 1 APPLIC TOPICAL ×2 (06:09→21:24)
[2017-06-14] MEDS: Empagliflozin 25 MG Tablet PO (06:10)
[2017-06-14] MEDS: dilTIAZem CD 240 MG Capsule PO (06:10)
[2017-06-14] MEDS: LINAGLIPTIN 5 MG TABLET PO (06:11)
[2017-06-14 06:36] LABS: Bedside Glucose 132 mg/dL (70-110)
--- NOTE | 2017-06-14 08:30 | MDS.RN ---
Pain interview for ELIZABETH 06/18/17 completed.
[2017-06-14] MEDS: Rivaroxaban 15 MG Tablet PO ×2 (09:31→18:15)
[2017-06-14] MEDS: oxyCODONE 5 MG Tablet PO ×2 (11:19→19:48)
[2017-06-14 15:50] VITALS: BP 141/57; PULSE 76; RESP 18; TEMP 36.9; O2SAT 93
[2017-06-14] MEDS: ALPRAZolam 0.5 MG Tablet PO (21:23)
[2017-06-14] MEDS: QUEtiapine 25 MG Tablet 12.5 MG PO (21:25)
[2017-06-15] MEDS: Ciprofloxacin 0.3% 2.5ml Bottle 1 DRP RIGHT EYE ×6 (01:40→21:51)
[2017-06-15] MEDS: 0.9% NaCl Midline IV Flush IV ×2 (05:27→14:07)
[2017-06-15] MEDS: LINAGLIPTIN 5 MG TABLET PO (05:28)
[2017-06-15] MEDS: Empagliflozin 25 MG Tablet PO (05:28)
[2017-06-15] MEDS: Menthol/Lanolin/Calamine/Znox 113 GM Tube 1 APPLIC TOPICAL (05:28)
[2017-06-15] MEDS: Rivaroxaban 20 MG Tablet PO (05:28)
[2017-06-15] MEDS: dilTIAZem CD 240 MG Capsule PO (05:28)
[2017-06-15] MEDS: oxyCODONE 5 MG Tablet PO ×3 (05:31→23:04)
[2017-06-15 06:50] LABS: Bedside Glucose 112 mg/dL (70-110)
[2017-06-15 06:58] VITALS: PULSE 78; RESP 19; O2SAT 94
--- NOTE | 2017-06-15 07:23 | NURSING ---
Pt remained in precautions this shift. All care was provided in room.
[2017-06-15] MEDS: 0.9% NaCl IVPB Med Flush (250 mL) 15 ML IV (14:08)
[2017-06-15 15:34] VITALS: BP 148/78; PULSE 71; RESP 17; TEMP 36.6; O2SAT 95
--- NOTE | 2017-06-15 16:40 | NURSING ---
All nursing treatments and therapies performed in room d/t isolation precautions.
[2017-06-15] MEDS: Senna/Docusate Sodium 1 Tablet 2 TABLET PO (17:16)
[2017-06-15] MEDS: QUEtiapine 25 MG Tablet 12.5 MG PO (21:57)
[2017-06-15] MEDS: ALPRAZolam 0.5 MG Tablet PO (23:04)
[2017-06-16] MEDS: Ciprofloxacin 0.3% 2.5ml Bottle 1 DRP RIGHT EYE ×6 (02:00→22:00)
[2017-06-16] MEDS: Senna/Docusate Sodium 1 Tablet 2 TABLET PO ×2 (06:11→17:48)
[2017-06-16] MEDS: LINAGLIPTIN 5 MG TABLET PO (06:11)
[2017-06-16] MEDS: dilTIAZem CD 240 MG Capsule PO (06:11)
[2017-06-16] MEDS: Empagliflozin 25 MG Tablet PO (06:11)
[2017-06-16] MEDS: Rivaroxaban 20 MG Tablet PO (06:17)
[2017-06-16 06:20] VITALS: PULSE 68
[2017-06-16 06:56] LABS: Bedside Glucose 121 mg/dL (70-110)
[2017-06-16] MEDS: oxyCODONE 5 MG Tablet PO ×3 (11:12→22:58)
[2017-06-16] MEDS: 0.9% NaCl Midline IV Flush IV ×3 (11:16→21:57)
[2017-06-16] MEDS: Acetaminophen 500 MG Tablet 1000 MG PO (14:41)
[2017-06-16 16:00] VITALS: BP 137/59; PULSE 72; RESP 16; TEMP 36.7; O2SAT 95
[2017-06-16] MEDS: ALPRAZolam 0.5 MG Tablet PO (21:52)
[2017-06-17] MEDS: Ciprofloxacin 0.3% 2.5ml Bottle 1 DRP RIGHT EYE ×6 (02:00→21:46)
[2017-06-17] MEDS: 0.9% NaCl Midline IV Flush IV ×3 (03:00→21:46)
[2017-06-17] MEDS: oxyCODONE 5 MG Tablet PO ×3 (03:34→23:26)
[2017-06-17] MEDS: Senna/Docusate Sodium 1 Tablet 2 TABLET PO ×2 (05:32→16:53)
[2017-06-17] MEDS: dilTIAZem CD 240 MG Capsule PO (05:33)
[2017-06-17] MEDS: Empagliflozin 25 MG Tablet PO (05:33)
[2017-06-17] MEDS: Rivaroxaban 20 MG Tablet PO (06:23)
[2017-06-17] MEDS: LINAGLIPTIN 5 MG TABLET PO (06:24)
[2017-06-17 06:56] LABS: Bedside Glucose 145 mg/dL (70-110)
--- NOTE | 2017-06-17 10:28 | NURSING ---
pt remains in isolation, all treatments/therapy done in room
[2017-06-17] MEDS: Ondansetron ODT 4 MG Tablet PO ×2 (14:05→21:44)
[2017-06-17] MEDS: 0.9% NaCl IVPB Med Flush (250 mL) 15 ML IV (14:40)
--- NOTE | 2017-06-17 15:23 | CASEMGMT ---
Brief interview for mental status (BIMS) and resident mood interview (PHQ-9) completed on this day. BIMS score 15/15. PHQ-9 score 11/14.
--- NOTE | 2017-06-17 15:24 | CASEMGMT ---
Social Work Faxed order for outpatient physical therapy to [facility]. Spoke with resident in room. Resident agreeable to all discharge planning and aware that [facility] will be contacting resident to set up appointment. Resident daughter to provide transportation home for resident at time of discharge. Proposed discharge date: 06/19/17 PLAN: Discharge home alone with family to be staying with resident for a few days. Hailee HAM, COOK DINNER
[2017-06-17 15:35] VITALS: BP 124/66; PULSE 83; RESP 18; TEMP 36.8; O2SAT 91
[2017-06-17] MEDS: ALPRAZolam 0.5 MG Tablet PO (21:45)
[2017-06-17 21:52] VITALS: PULSE 89; O2SAT 97
[2017-06-18] MEDS: 0.9% NaCl Midline IV Flush IV ×3 (05:02→21:38)
[2017-06-18] MEDS: dilTIAZem CD 240 MG Capsule PO (05:03)
[2017-06-18] MEDS: Empagliflozin 25 MG Tablet PO (05:03)
[2017-06-18] MEDS: Ciprofloxacin 0.3% 2.5ml Bottle 1 DRP RIGHT EYE ×4 (05:03→17:34)
[2017-06-18] MEDS: Rivaroxaban 20 MG Tablet PO (05:03)
[2017-06-18] MEDS: LINAGLIPTIN 5 MG TABLET PO (05:03)
[2017-06-18] MEDS: Senna/Docusate Sodium 1 Tablet 2 TABLET PO ×2 (05:03→17:33)
[2017-06-18] MEDS: Ondansetron ODT 4 MG Tablet PO ×2 (05:06→12:49)
[2017-06-18 05:56] VITALS: O2SAT 96
[2017-06-18 06:36] LABS: Bedside Glucose 132 mg/dL (70-110)
[2017-06-18] MEDS: oxyCODONE 5 MG Tablet PO ×2 (08:47→21:38)
--- NOTE | 2017-06-18 11:16 | CASEMGMT ---
Insurance Clinical information sent. Pending continued stay approval at this time. Auth#[id number] Hailee HAM, ELIGIBILITY ANALYST
--- NOTE | 2017-06-18 14:27 | NURSING ---
Patient complaining of nausea, zofran ineffective, NO for phenergan 25mg PO PRN for nausea.
[2017-06-18 15:00] VITALS: BP 130/68; PULSE 70; RESP 18; TEMP 36.8; O2SAT 97
[2017-06-18] MEDS: ALPRAZolam 0.5 MG Tablet PO (21:38)
[2017-06-19] MEDS: dilTIAZem CD 240 MG Capsule PO (04:59)
[2017-06-19] MEDS: LINAGLIPTIN 5 MG TABLET PO (04:59)
[2017-06-19] MEDS: Rivaroxaban 20 MG Tablet PO (04:59)
[2017-06-19] MEDS: Polyethylene Glycol 3350 17 GM PACKET PO (04:59)
[2017-06-19] MEDS: Empagliflozin 25 MG Tablet PO (04:59)
[2017-06-19] MEDS: Senna/Docusate Sodium 1 Tablet 2 TABLET PO (04:59)
[2017-06-19 05:06] LABS: Absolute Lymphocyte Count 2.56 X10^3/ul (0.83-4.51); Absolute Neutrophil Count 3.9 X10^3/uL (2.0-7.7); Basophil# 0.02 X10^3/uL; Basophil% 0.3 % (0-1); Eosinophil# 0.08 X10^3/uL; Eosinophils% 1.1 % (0-5); Hematocrit 41.6 % (37-47); Hemoglobin 13.8 g/dl (12.0-15.0); Lymphocyte # 2.56 X10^3/ul (4.0); Lymphocyte % 36.5 % (19-41); Mean Corp Hgb Conc 33.2 g/gl (32-36); Mean Corpuscular Hgb 31.1 pg (27.0-32.0); Mean Corpuscular Volume 93.7 fL (81-99); Mean Platelet Vol. 9.7 fl (6.2-12.0); Monocyte# 0.46 X10^3/uL; Monocyte% 6.6 % (0-10); Neutrophil # 3.85 X10^3/uL (2.7-7.7); Neutrophil % 54.8 % (47-70); Platelet Count 182 K/mm3 (150-450); RBC Distribution Width CV 14.2 % (11.6-14.6); RBC Distribution Width SD 46.7 fl (35.1-43.9); Red Blood Count 4.44 M/mm3 (4.2-5.4)
[2017-06-19 05:15] LABS: POSITIVE COUNT NO; POSITIVE DIFFERENTIAL NO; POSITIVE MORPHOLOGY NO
[2017-06-19 05:27] LABS: Anion Gap 5 (5-15); BUN 12 mg/dL (7-18); BUN/Creat Ratio 23.8 RATIO (10-20); Calcium,Total 9.6 mg/dL (8.5-10.1); Chloride 105 mmol/L (98-107); EST Glomerular Filtration Rate 126 mL/min (>60); Est Glom Filt Rate - Afr Amer 153 mL/min (>60); Estimated Creatinine Clearance 40.21 ml/min; Glucose 123 mg/dL (74-106); Potassium 3.9 mmol/L (3.5-5.1); Sodium Level 142 mmol/L (136-145)
[2017-06-19] MEDS: oxyCODONE 5 MG Tablet PO (05:31)
[2017-06-19 06:08] VITALS: O2SAT 98
[2017-06-19 06:26] LABS: Bedside Glucose 146 mg/dL (70-110)
[2017-06-19] MEDS: Petrolatum,White 5 GM PACKET 1 APPLIC TOPICAL (08:33)
[2017-06-19 08:43] VITALS: BP 143/65; PULSE 64; RESP 20; TEMP 36.9; O2SAT 96
[2017-06-19] MEDS: Bisacodyl 10 MG Suppository RECTAL (10:53)
--- NOTE | 2017-06-19 11:52 | NURSING ---
Addendum entered by Neelam Tinajero 06/19/17 14:11: Last charted on nursing board that pt had Last BM 06/17/17. Pt has been up to BR in her room on own with walker. No complaints until time of discharge. Original Note: Addendum entered by Marysol Rojo 06/19/17 11:57: pt was d/c by wheel chair to car with family member accompanied @ 11:40 Original Note: pt c/o of constipation at D/C time, miralax and senokot was given this am, PRN dulcolax was requested and given at 10am, small results per pt.
--- NOTE | 2017-06-19 14:36 | CASEMGMT ---
Insurance Notified insurance of resident discharge on 06/19/17. Auth#[id number] Hailee HAM, FARM EQUIPMENT SERVICE TECHNICIAN
--- NOTE | 2017-07-02 12:39 | MDS.RN ---
Information for the mds was obtained from review of the clinical record, interview of resident, staff, and direct observation of resident's care.
== END 2017-06-19 11:40 | disposition home or self-care (01) | DRG 948 ==
PROVIDERS: Admitting Provider Family Medicine Geriatric Medicine; Family Provider Internal Medicine; PCP Internal Medicine; Visit Provider Family Medicine Geriatric Medicine
DX: R53.81 Other malaise (principal); I82.491 Acute embolism and thrombosis of other specified deep vein of right lower extremity; N39.0 Urinary tract infection, site not specified; E11.9 Type 2 diabetes mellitus without complications; I10 Essential (primary) hypertension; F41.9 Anxiety disorder, unspecified; I48.0 Paroxysmal atrial fibrillation; E78.5 Hyperlipidemia, unspecified; M19.90 Unspecified osteoarthritis, unspecified site; R41.0 Disorientation, unspecified; Z79.899 Other long term (current) drug therapy; Z79.4 Long term (current) use of insulin; Z79.84 Long term (current) use of oral hypoglycemic drugs; H00.011 Hordeolum externum right upper eyelid; H10.9 Unspecified conjunctivitis
CPT/HCPCS: 36415; 80048; 81001; 82962; 85025; 87077; 87086; 87088; 87186; 97110; 97116; 97162; 97166; 97530; 97535; 97802; J2185; J7050; A4216

== ENCOUNTER 2017-06-19 12:47 | Inpatient (IN) | payer MEDICARE, SELFPAY ==
[2017-06-19] VITALS (8 sets, daily range): BP systolic 141–176; BP diastolic 53–96; PULSE 81–92; RESP 16–24; TEMP 36–36.7; O2SAT 95–100; BMI 38.7; BMI 40.0
--- NOTE | 2017-06-19 13:33 | CT_ITS ---
STUDY: CT ABDOMEN AND PELVIS WITH CONTRAST REASON FOR EXAM: Female, 76 years old. Epigastric pain x3 days. Status post colon resection due to diverticulitis. Status post bladder resection and Whipple procedure. RADIATION DOSAGE (If Supplied By Facility): CTDIvol = ( 16.73 ) mGy, DLP = ( 1207.99 ) mGycm TECHNIQUE: Transaxial images were obtained from the dome of the diaphragm to the symphysis pubis without oral contrast. 100CC ml of Isovue 300 contrast was administered. Sagittal and coronal images were reconstructed. Individualized dose optimization techniques were used for this CT. COMPARISON: September 12, 2016 FINDINGS: The visualized lung bases are unremarkable. The visualized portions of the heart are within normal limits. Normal liver. There are surgical clips in the gallbladder fossa consistent with a prior cholecystectomy. Normal spleen. Normal pancreas. Normal bilateral adrenal glands. Normal right kidney. Normal left kidney. Sutures are noted along the antrum. Anastomotic sutures are noted in the jejunum. This segment appears somewhat distended measuring up to 6.3 cm in diameter. Multiple air-fluid levels are noted throughout the proximal small bowel which also appears somewhat dilated. There is no bowel wall thickening or pneumatosis. Anastomotic sutures are noted at the rectosigmoid junction. There is increased stool in the colon. A few diverticula are noted without significant inflammation. Appendix is not clearly identified. Normal abdominal aorta. Normal inferior vena cava. Normal retroperitoneum. Normal urinary bladder. There is a small umbilical hernia containing fat. Normal osseous structures. CT/Abdomen/Pelvis WITH Contrast IMPRESSION: Early low grade proximal small bowel obstruction versus localized ileus and adynamic segment. Extensive Postop changes as above. Electronically Signed: Fabricio Interiano MD at 16:18 EDT , Service support ,
--- NOTE | 2017-06-19 13:34 | NURSING ---
NO LW OR POA
[2017-06-19] MEDS: Ondansetron 4 MG/2 ML Vial IV (14:10)
[2017-06-19] MEDS: Morphine 4 MG/ML Syringe IV (14:10)
[2017-06-19] MEDS: 0.9% Normal Saline 1,000 ML 125 ML IV ×2 (14:10→18:54)
[2017-06-19 14:14] LABS: Absolute Lymphocyte Count 1.86 X10^3/ul (0.83-4.51); Absolute Neutrophil Count 6.1 X10^3/uL (2.0-7.7); Basophil# 0.03 X10^3/uL; Basophil% 0.3 % (0-1); Eosinophil# 0.04 X10^3/uL; Eosinophils% 0.5 % (0-5); Hematocrit 48.9 % (37-47); Hemoglobin 16.3 g/dl (12.0-15.0); Lymphocyte # 1.86 X10^3/ul (4.0); Lymphocyte % 21.6 % (19-41); Mean Corp Hgb Conc 33.3 g/gl (32-36); Mean Corpuscular Hgb 30.7 pg (27.0-32.0); Mean Corpuscular Volume 92.1 fL (81-99); Mean Platelet Vol. 10.3 fl (6.2-12.0); Monocyte# 0.56 X10^3/uL; Monocyte% 6.5 % (0-10); Neutrophil # 6.06 X10^3/uL (2.7-7.7); Neutrophil % 70.3 % (47-70); Platelet Count 178 K/mm3 (150-450); RBC Distribution Width CV 14.3 % (11.6-14.6); RBC Distribution Width SD 47.4 fl (35.1-43.9); Red Blood Count 5.31 M/mm3 (4.2-5.4); White Blood Count 8.6 K/mm3 (4.4-11.0)
[2017-06-19 14:16] LABS: POSITIVE COUNT NO; POSITIVE DIFFERENTIAL NO; POSITIVE MORPHOLOGY NO
[2017-06-19 14:32] LABS: Anion Gap 7 (5-15); BUN 13 mg/dL (7-18); BUN/Creat Ratio 18.6 RATIO (10-20); Calcium,Total 10.9 mg/dL (8.5-10.1); Chloride 101 mmol/L (98-107); EST Glomerular Filtration Rate 87 mL/min (>60); Est Glom Filt Rate - Afr Amer 105 mL/min (>60); Estimated Creatinine Clearance 40.21 ml/min; Glucose 151 mg/dL (74-106); Lipase 51 U/L (73-393); Sodium Level 138 mmol/L (136-145)
[2017-06-19 14:42] LABS: Lactic Acid 1.7 mmol/L (0.4-2.0)
[2017-06-19] MEDS: HYDROmorphone 1 MG/ML Syringe IV (15:48)
[2017-06-19] MEDS: proMETHazine 25 MG/ML Syringe 6.25 MG IV (15:48)
--- NOTE | 2017-06-19 16:24 | ED.VISSUMM ---
- ER Visit Summary Date of Service: 06/19/17 Chief Complaint: [Abdominal pain] History of Present Illness: The patient is a 76 F [presents to the emergency department with abdominal discomfort started 3 days ago. Patient was in TCU until about an hour and a half ago when she was discharged but decided that she needed to be seen for her abdominal pain. Patient's last bowel movement was 3 days ago. Patient's had nausea but no vomiting. Patient states she has had similar pain in the past when she had a bowel obstruction. Patient has history of cholecystectomy and partial colectomy. Patient denies any fevers. Patient currently being treated for urinary tract infection. Physical Examination: [HEENT-PERRLA, EOMI. Cranial nerves II through XII grossly intact. TMs clear. Mucous membranes moist. No adenopathy. Cardiovascular-regular rate and rhythm without murmur or ectopy Lungs-clear to auscultation, chest wall stable without crepitus or subcu emphysema Abdomen-normoactive bowel sounds, soft patient has diffuse tenderness palpation. There is no rebound, rigidity, or perineal signs. Extremities-intact ?4, normal range of motion, normal pulses, atraumatic] Test Results: [CBC with differential obtained showed a white count of 8.6, hemoglobin 16, hematocrit 49, platelets 178. Chemistries unremarkable. Lipase was normal at 51. Lactate was normal at 1.7. CT scan of the abdomen pelvis showed early small bowel obstruction versus localized ileus.] Emergency Department Course and Treatment: Admit for pain control, fluids and further evaluation. [] Treatment Plan: [Admit] Disposition: Admit] Impression: [Small bowel obstruction Abdominal pain] This note was generated with [employer] dictation software. It may contain incorrect words, spelling, and punctuation that were not noted in review of the chart prior to signing ED Disposition - Plan for ED Patient: Chief Complaint: Abd Pain Referrals: Luanne Aquino MD [Primary Care Provider] -
--- NOTE | 2017-06-19 17:11 | NURSING ---
DR RUSH IN ER
--- NOTE | 2017-06-19 17:16 | NURSING ---
PT MADE AWARE THAT SHE NEEDED AN NG TUBE PLACED. PT REFUSED NG TUBE PLACEMENT. PT STATED SHE WILL NOT HAVE ONE PUT IN RIGHT NOW. PT IS ALERT AND ORIENTED X4. PT EDUCATED ON IMPORTANCE AND BENEFITS OF NG TUBE. PT DECLINED NG TUBE AGAIN AFTER EDUCATION.
--- NOTE | 2017-06-19 17:23 | PCM.HP.STD ---
Problem List (1) SBO (small bowel obstruction) Status: Acute (2) Diabetes mellitus Status: Chronic (3) Anxiety Status: Chronic (4) Right leg DVT Status: Acute (5) Right knee meniscus surgery Status: Chronic (6) Afib Status: Chronic (7) Hyperlipidemia Status: Chronic (8) Osteoarthritis Status: Chronic (9) Hypertension Status: Chronic (10) Type 2 diabetes mellitus Status: Chronic History of Present Illness Date of Admission: 06/19/17 Chief Complaint: abdominal pain The patient is a 76 year old F who has been in the transitional care unit. Over the past 4 days, patient has been having some nausea but today, she is still on the transitional care unit, was having worsening abdominal pain associated with vomiting. Patient was discharged from the transitional care unit. Patient went home and was just feeling awful and presented back to the emergency room. They performed a CT scan of her abdomen that showed a small bowel obstruction. Patient received pain medication and then they called the hospitalist service to admit. No nasogastric tube was placed. Patient states that the pain is more right-sided, which is different than previous obstructions that she has had but overall feels similar to her prior history of bowel obstructions. [] Past Medical History Past Medical History (Chronic Problems): Chronic Problems (Last Updated 04/23/17 @ 09:56 by Armida Neal) Diabetes mellitus (Chronic) Anxiety (Chronic) Edema (Chronic) Right knee meniscus surgery (Chronic) Afib (Chronic) SBO (small bowel obstruction) (Chronic) Hyperlipidemia (Chronic) Osteoarthritis (Chronic) Hypertension (Chronic) Type 2 diabetes mellitus (Chronic) Allergies ramelteon [From Rozerem] Allergy (Verified 06/19/17 12:51) Other bupropion Adverse Reaction (Verified 06/19/17 12:51) Other UNKNOWN bupropion HCl [From Wellbutrin] Adverse Reaction (Verified 06/19/17 12:51) Other UNKNOWN dexfenfluramine HCl [From Redux] Adverse Reaction (Verified 06/19/17 12:51) Unknown hydrochlorothiazide Adverse Reaction (Verified 06/19/17 12:51) Other UNKNOWN ketorolac tromethamine [From Toradol] Adverse Reaction (Verified 06/19/17 12:51) Itching oxaprozin [From Daypro] Adverse Reaction (Verified 06/19/17 12:51) Other UNKNOWN Home Medications: Ambulatory Orders Medication Instructions Recorded ALPRAZolam [Xanax] 0.5 mg PO QHS 12/11/13 Diltiazem CD [Cardizem CD] 240 mg PO DAILY 12/11/13 Oxycodone HCl/Acetaminophen 1 - 2 tablet PO Q6H PRN PRN #56 05/15/17 [Percocet 5-325] tablet Sitagliptin Phosphate [Januvia] 100 mg PO DAILY 05/30/17 Acetaminophen [Tylenol] 1,000 mg PO Q8H PRN PRN tablet 06/12/17 Empagliflozin [Jardiance] 25 mg PO DAILY #30 tab 06/12/17 Menthol/Lanolin/Calamine/Znox 1 applic TOPICAL 0600,2200 tube 06/12/17 [Calmoseptine Ointment] Ondansetron [Zofran Odt] 4 mg PO Q6H PRN PRN #30 tab 06/12/17 Oxycodone [Oxyir] 5 - 10 mg PO Q4H PRN PRN tablet 06/12/17 Rivaroxaban [Xarelto] 20 mg PO DAILY@0600 #30 tab 06/12/17 Surgical History: arthroscopy, knee - Right knee meniscal repair, cholecystectomy, - - 2013 had bowel resection, also had whipple procedure in [place] 2007-, tubal ligation, carpal tunnel in wrist, shoulder and hand surgery hysterectemy, bladder suspension, wall between vagina and colon. Psychiatric History: Anxiety CORPORATE DIRECTOR History: No pertinent CORPORATE DIRECTOR history Smoking Status: Never smoker - *Family History Paternal History Items: - - afib Review of Systems Constitutional: Reports: Chills. Denies: Anorexia, Fever Eyes: Denies: Blurred vision, Double vision HEENT: Denies: Head Aches, Sinus Congestion, Sinus Drainage Cardiovascular: Denies: Chest Pain, Palpitations Respiratory: Denies: Cough, Shortness of breath at rest, Sputum production Gastrointestinal: Reports: Abdominal Pain, Diarrhea, Nausea, Vomiting Genitourinary: Denies: Dysuria Musculoskeletal: Denies: Joint Pain, Joint Tenderness Skin: Denies: Rash, Wounds Neurological: Denies: Numbness, Tingling, Focal weakness Hematologic/ Lymphatic: Reports: Hx of blood clot. Denies: Easy Bruising, Easy Bleeding VTE Information - Inpt Only VTE Present on Admission: Yes Patient Problems: Active and Suspected Problems (Last Updated 04/23/17 @ 09:56 by Armida Neal) SBO (small bowel obstruction) (Acute) - Physical Exam General: Alert, - - Uncomfortable. Afebrile. HEENT: Atraumatic, Normocephalic Neck: No Nodes, Thyroid Normal Size and Texture Lungs: Clear to auscultation, Normal air movement, No rhonchi, No wheeze Cardiovascular: Regular rate, Regular Rhythm, Normal S1, Normal S2, No murmurs Abdomen: Hypoactive Bowel Sounds, Distended, Tender Extremities: No edema, No Calf Tenderness Skin: No rashes, No breakdown Psych/Mental Status: Anxious Vital Signs Temp Pulse Resp BP Pulse Ox 36.6 C 89 18 155/84 H 96 06/19/17 12:48 06/19/17 16:33 06/19/17 16:33 06/19/17 16:33 06/19/17 16:33 Oxygen Delivery Method Room Air Weight: 99.337 kg Body Mass Index (BMI) 38.7 Finger Stick Blood Glucose 173 Laboratory Tests Past 24 Hrs 06/19/17 06/19/17 06/19/17 14:00 14:00 14:00 WBC 8.6 RBC 5.31 Hgb 16.3 H Hct 48.9 H MCV 92.1 MCH 30.7 MCHC 33.3 RDW 14.3 RDW Differential 47.4 H Plt Count 178 MPV 10.3 Immature Gran % (Auto) 0.800 Neut % (Auto) 70.3 H Lymph % (Auto) 21.6 [place] % (Auto) 6.5 Eos % (Auto) 0.5 Baso % (Auto) 0.3 Absolute Neuts (auto) 6.1 Absolute Lymphs (auto) 1.86 Total Counted Not Reportable Sodium 138 Potassium 4.0 Chloride 101 Carbon Dioxide 30.0 Anion Gap 7 BUN 13 Creatinine 0.70 Estim Creat Clear Calc 40.21 Est GFR (MDRD) Af Amer 105 Est GFR (MDRD) Non-Af 87 BUN/Creatinine Ratio 18.6 Glucose 151 H Lactic Acid 1.7 Calcium 10.9 H Lipase 51 L Assessment/Plan Active and Suspected Problems (Last Updated 04/23/17 @ 09:56 by Armida Neal) SBO (small bowel obstruction) (Acute) 1. Small bowel obstruction Plan right now is conservative management with pain control, antiemetics, IV fluids. Will consult Dr. Joyce, of general surgery, to evaluate. When patient was evaluated for a small bowel obstruction in August 2016 tentative plan at that time, was if the patient failed to progress or worsens to possibly transfer to a tertiary facility given her complex surgical history. Hopefully conservative management will be sufficient for her. Nasogastric tube has been requested by myself and they will need to be followed up with an x-ray to ensure proper placement and then we will initiate low intermittent suction. 2. Venous thromboembolic disease Continue with Xarelto 3. Diabetes mellitus type 2 Patient be n.p.o. so I am going to be holding her oral hypoglycemic agents. Check Handy blood sugars every 6 hours and patient will be on 4. A. fib Patient will continue to have her diltiazem and Xarelto ordered but the patient is unable to tolerate those even with clamp the NG and may need to consider utilizing Lovenox or IV diltiazem. 5. DVT prophylaxis: Patient does have history of embolic disease and is already on anticoagulation with Xarelto. Code Visit Inpatient E&M: 61487 Init Hosp L2
--- NOTE | 2017-06-19 17:33 | HP.PCM_ITS ---
Problem List (1) SBO (small bowel obstruction) Status: Acute (2) Diabetes mellitus Status: Chronic (3) Anxiety Status: Chronic (4) Right leg DVT Status: Acute (5) Right knee meniscus surgery Status: Chronic (6) Afib Status: Chronic (7) Hyperlipidemia Status: Chronic (8) Osteoarthritis Status: Chronic (9) Hypertension Status: Chronic (10) Type 2 diabetes mellitus Status: Chronic History of Present Illness Date of Admission: 06/19/17 Chief Complaint: abdominal pain The patient is a 76 year old F who has been in the transitional care unit. Over the past 4 days, patient has been having some nausea but today, she is still on the transitional care unit, was having worsening abdominal pain associated with vomiting. Patient was discharged from the transitional care unit. Patient went home and was just feeling awful and presented back to the emergency room. They performed a CT scan of her abdomen that showed a small bowel obstruction. Patient received pain medication and then they called the hospitalist service to admit. No nasogastric tube was placed. Patient states that the pain is more right-sided, which is different than previous obstructions that she has had but overall feels similar to her prior history of bowel obstructions. [] Past Medical History Past Medical History (Chronic Problems): Chronic Problems (Last Updated 04/23/17 @ 09:56 by Armida Neal) Diabetes mellitus (Chronic) Anxiety (Chronic) Edema (Chronic) Right knee meniscus surgery (Chronic) Afib (Chronic) SBO (small bowel obstruction) (Chronic) Hyperlipidemia (Chronic) Osteoarthritis (Chronic) Hypertension (Chronic) Type 2 diabetes mellitus (Chronic) Allergies ramelteon [From Rozerem] Allergy (Verified 06/19/17 12:51) Other bupropion Adverse Reaction (Verified 06/19/17 12:51) Other UNKNOWN bupropion HCl [From Wellbutrin] Adverse Reaction (Verified 06/19/17 12:51) Other UNKNOWN dexfenfluramine HCl [From Redux] Adverse Reaction (Verified 06/19/17 12:51) Unknown hydrochlorothiazide Adverse Reaction (Verified 06/19/17 12:51) Other UNKNOWN ketorolac tromethamine [From Toradol] Adverse Reaction (Verified 06/19/17 12:51) Itching oxaprozin [From Daypro] Adverse Reaction (Verified 06/19/17 12:51) Other UNKNOWN Home Medications: Ambulatory Orders Medication Instructions Recorded ALPRAZolam [Xanax] 0.5 mg PO QHS 12/11/13 Diltiazem CD [Cardizem CD] 240 mg PO DAILY 12/11/13 Oxycodone HCl/Acetaminophen 1 - 2 tablet PO Q6H PRN PRN #56 05/15/17 [Percocet 5-325] tablet Sitagliptin Phosphate [Januvia] 100 mg PO DAILY 05/30/17 Acetaminophen [Tylenol] 1,000 mg PO Q8H PRN PRN tablet 06/12/17 Empagliflozin [Jardiance] 25 mg PO DAILY #30 tab 06/12/17 Menthol/Lanolin/Calamine/Znox 1 applic TOPICAL 0600,2200 tube 06/12/17 [Calmoseptine Ointment] Ondansetron [Zofran Odt] 4 mg PO Q6H PRN PRN #30 tab 06/12/17 Oxycodone [Oxyir] 5 - 10 mg PO Q4H PRN PRN tablet 06/12/17 Rivaroxaban [Xarelto] 20 mg PO DAILY@0600 #30 tab 06/12/17 Surgical History: arthroscopy, knee - Right knee meniscal repair, cholecystectomy, - - 2013 had bowel resection, also had whipple procedure in [place] 2007-, tubal ligation, carpal tunnel in wrist, shoulder and hand surgery hysterectemy, bladder suspension, wall between vagina and colon. 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 Denies: Anorexia, Fever Eyes: Denies: Blurred vision, Double vision HEENT: Denies: Head Aches, Sinus Congestion, Sinus Drainage Cardiovascular: Denies: Chest Pain, Palpitations Respiratory: Denies: Cough, Shortness of breath at rest, Sputum production Gastrointestinal: Reports: Abdominal Pain, Diarrhea, Nausea, Vomiting Genitourinary: Denies: Dysuria Musculoskeletal: Denies: Joint Pain, Joint Tenderness Skin: Denies: Rash, Wounds Neurological: Denies: Numbness, Tingling, Focal weakness Hematologic/ Lymphatic: Reports: Hx of blood clot. Denies: Easy Bruising, Easy Bleeding VTE Information - Inpt Only VTE Present on Admission: Yes Patient Problems: Active and Suspected Problems (Last Updated 04/23/17 @ 09:56 by Armida Neal ) SBO (small bowel obstruction) (Acute) - Physical Exam General: Alert, - - Uncomfortable. Afebrile. HEENT: Atraumatic, Normocephalic Neck: No Nodes, Thyroid Normal Size and Texture Lungs: Clear to auscultation, Normal air movement, No rhonchi, No wheeze Cardiovascular: Regular rate, Regular Rhythm, Normal S1, Normal S2, No murmurs Abdomen: Hypoactive Bowel Sounds, Distended, Tender Extremities: No edema, No Calf Tenderness Skin: No rashes, No breakdown Psych/Mental Status: Anxious Vital Signs Temp Pulse Resp BP Pulse Ox 36.6 C 89 18 155/84 H 96 06/19/17 12:48 06/19/17 16:33 06/19/17 16:33 06/19/17 16:33 06/19/17 16:33 Oxygen Delivery Method Room Air Weight: 99.337 kg Body Mass Index (BMI) 38.7 Finger Stick Blood Glucose 173 Laboratory Tests Past 24 Hrs 06/19/17 06/19/17 06/19/17 14:00 14:00 14:00 WBC 8.6 RBC 5.31 Hgb 16.3 H Hct 48.9 H MCV 92.1 MCH 30.7 MCHC 33.3 RDW 14.3 RDW Differential 47.4 H Plt Count 178 MPV 10.3 Immature Gran % (Auto) 0.800 Neut % (Auto) 70.3 H Lymph % (Auto) 21.6 Door % (Auto) 6.5 Eos % (Auto) 0.5 Baso % (Auto) 0.3 Absolute Neuts (auto) 6.1 Absolute Lymphs (auto) 1.86 Total Counted Not Reportable Sodium 138 Potassium 4.0 Chloride 101 Carbon Dioxide 30.0 Anion Gap 7 BUN 13 Creatinine 0.70 Estim Creat Clear Calc 40.21 Est GFR (MDRD) Af Amer 105 Est GFR (MDRD) Non-Af 87 BUN/Creatinine Ratio 18.6 Glucose 151 H Lactic Acid 1.7 Calcium 10.9 H Lipase 51 L Assessment/Plan Active and Suspected Problems (Last Updated 04/23/17 @ 09:56 by Armida Neal ) SBO (small bowel obstruction) (Acute) 1. Small bowel obstruction * Plan right now is conservative management with pain control, antiemetics, IV fluids. Will consult Dr. Joyce, of general surgery, to evaluate. When patient was evaluated for a small bowel obstruction in August 2016 tentative plan at that time, was if the patient failed to progress or worsens to possibly transfer to a tertiary facility given her complex surgical history. Hopefully conservative management will be sufficient for her. * Nasogastric tube has been requested by myself and they will need to be followed up with an x-ray to ensure proper placement and then we will initiate low intermittent suction. 2. Venous thromboembolic disease * Continue with Xarelto 3. Diabetes mellitus type 2 * Patient be n.p.o. so I am going to be holding her oral hypoglycemic agents. * Check Handy blood sugars every 6 hours and patient will be on 4. A. fib * Patient will continue to have her diltiazem and Xarelto ordered but the patient is unable to tolerate those even with clamp the NG and may need to consider utilizing Lovenox or IV diltiazem. 5. DVT prophylaxis: Patient does have history of embolic disease and is already on anticoagulation with Xarelto. Code Visit Inpatient E&M: 56437 Init Hosp L2
[2017-06-19] MEDS: fentaNYL 100 MCG/2 ML Ampul 25 MCG IV ×3 (18:30→21:41)
--- NOTE | 2017-06-19 18:33 | NURSING ---
Both daughter and patient state that NG was not refused in ED and were agreeable to having placed. HIRAM Asencio attempted NG placement- however, was unable. Pt began to state she did not want placed. Dr. Ibarra notified by HIRAM Asencio and he states he is on his way to hospital.
[2017-06-19] MEDS: proMETHazine 25 MG/ML Syringe 12.5 MG IV (18:39)
[2017-06-19] MEDS: proCHLORPERazine 10 MG/2 ML Vial 5 MG IV (19:38)
--- NOTE | 2017-06-19 19:40 | CON.PCM_ITS ---
Reason for Consult Date of Consultation: 06/19/17 History of Present Illness: The patient is a 76 year old F recently underwent knee arthroscopy for meniscal tear and developed a DVT following that procedure. She was started on Xarelto. The patient was then started on Cymbalta. Her Cymbalta dose was increased and the patient became increasingly confused. She was recently admitted to [facility] then changed to the transitional care unit. While at the TCU, the patient noted abdominal distention and discomfort. She states her last bowel movement was approximately 4 days previously. She is not feeling. She is passing flatus recently. She was admitted to medical service with diagnosis of partial small bowel obstruction. CT scan of the abdomen and pelvis was obtained. This demonstrated distention at the level of her Concepc[place]-en-Y anastomosis and signs of a distal partial bowel obstruction. The patient was moved to the floor. She states her pain medication is not of sufficient duration to take care of her abdominal cramping symptoms. She also feels that she is nauseated. She vomited one time. An attempt to place a nasogastric tube are reasonable nostril failed. I had seen the patient back in August 2016 when she presented with obstructive symptoms and abdominal pain. At that time she had tried to increase her vegetable intake and actually had very significant dilation of the same portion of her Concepc[place]-en-Y anastomosis. At this time, there was a significant bezoar in that area. Over days with some oral agents. This was able to break up and pass. The patient had an outpatient upper GI small bowel follow-through, which was described as no signs of obstruction or abnormality at the anastomoses. The patient has a complex past medical history. She understands she had a Whipple procedure performed in [place]-this is not accurate. The patient has a prior history of a cholecystectomy performed at age 19 in [place] by Brendan Snell. the patient then had recurring issues of abdominal pain. She had diverticulosis without diverticulitis. She had had prior to presentation in [place] a previous history of a total abdominal hysterectomy with bilateral salpingo-oophorectomy, previous tubal ligation, previous bladder suspension. In early 2006, she presented to an outside hospital in [place] with complaints of epigastric abdominal pain. She was felt at that time to have pancreatitis. She underwent study which apparently failed to demonstrate choledocholithiasis. She had an ERCP performed at that time and was noted to have a dilated common bile duct of an unknown etiology. The patient then returned again with was felt to be acute pancreatitis and elevated liver enzymes clinically she was felt to have cholangitis at the time of admission. There was concern over the possibility due to pancreatic head abnormalities and common duct dilatation listed as upwards of 2 cm in diameter of the pancreatic head mass. The patient was scheduled for a possible Whipple procedure. At the time of surgery, a biopsy was performed of the pancreas which demonstrated chronic scarring but no signs of malignancy. The patient had a common duct stone which was removed and sent to pathology. It was apparently 5 mm in size. At this point, the operating surgeon elected to perform a Concepción-en-Y choledochojejunostomy to bypass the obstruction and the head of the pancreas. This surgical procedure was performed on June 12, 2006. The patient has since undergone a low anterior resection performed by Dr. Garcia in 2013 for diverticulitis. Past Medical History Past Medical History (Chronic Problems): Chronic Problems (Last Updated 04/23/17 @ 09:56 by Armida Neal) Diabetes mellitus (Chronic) Anxiety (Chronic) Edema (Chronic) Right knee meniscus surgery (Chronic) Afib (Chronic) SBO (small bowel obstruction) (Chronic) Hyperlipidemia (Chronic) Osteoarthritis (Chronic) Hypertension (Chronic) Type 2 diabetes mellitus (Chronic) Allergies ramelteon [From Rozerem] Allergy (Verified 06/19/17 12:51) Other bupropion Adverse Reaction (Verified 06/19/17 12:51) Other UNKNOWN bupropion HCl [From Wellbutrin] Adverse Reaction (Verified 06/19/17 12:51) Other UNKNOWN dexfenfluramine HCl [From Redux] Adverse Reaction (Verified 06/19/17 12:51) Unknown hydrochlorothiazide Adverse Reaction (Verified 06/19/17 12:51) Other UNKNOWN ketorolac tromethamine [From Toradol] Adverse Reaction (Verified 06/19/17 12:51) Itching oxaprozin [From Daypro] Adverse Reaction (Verified 06/19/17 12:51) Other UNKNOWN Home Medications: Ambulatory Orders Medication Instructions Recorded ALPRAZolam [Xanax] 0.5 mg PO QHS 12/11/13 Diltiazem CD [Cardizem CD] 240 mg PO DAILY 12/11/13 Oxycodone HCl/Acetaminophen 1 - 2 tablet PO Q6H PRN PRN #56 05/15/17 [Percocet 5-325] tablet Sitagliptin Phosphate [Januvia] 100 mg PO DAILY 05/30/17 Acetaminophen [Tylenol] 1,000 mg PO Q8H PRN PRN tablet 06/12/17 Empagliflozin [Jardiance] 25 mg PO DAILY #30 tab 06/12/17 Menthol/Lanolin/Calamine/Znox 1 applic TOPICAL 0600,2200 tube 06/12/17 [Calmoseptine Ointment] Ondansetron [Zofran Odt] 4 mg PO Q6H PRN PRN #30 tab 06/12/17 Oxycodone [Oxyir] 5 - 10 mg PO Q4H PRN PRN tablet 06/12/17 Rivaroxaban [Xarelto] 20 mg PO DAILY@0600 #30 tab 06/12/17 Surgical History: arthroscopy, knee - Right knee meniscal repair, cholecystectomy, - - 2013 had bowel resection, also had whipple procedure in [place] 2007-, tubal ligation, carpal tunnel in wrist, shoulder and hand surgery hysterectemy, bladder suspension, wall between vagina and colon. 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 Denies: Chills, Fever, Weight Change HEENT: Denies: Head Aches, Sinus Congestion, Sinus Drainage Cardiovascular: Denies: Chest Pain, Palpitations Respiratory: Denies: Cough, Shortness of breath at rest, Sputum production Gastrointestinal: Reports: Abdominal Pain, Nausea, Vomiting Genitourinary: Denies: Dysuria Musculoskeletal: Denies: Joint Pain, Joint Tenderness Skin: Denies: Rash, Wounds Neurological: Denies: Numbness, Tingling, Focal weakness Psychiatric: Denies: Anxiety, Depression, Homicidal Ideations, Suicidal Ideations Hematologic/ Lymphatic: Denies: Easy Bruising, Easy Bleeding Patient Problems: Active and Suspected Problems (Last Updated 04/23/17 @ 09:56 by Armida Neal ) SBO (small bowel obstruction) (Acute) - Physical Exam General: Alert, Oriented x3, Cooperative, - - in the colicky discomfort Lungs: Clear to auscultation, Normal air movement Cardiovascular: Regular rate, Regular Rhythm Abdomen: Bowel Sounds Present, Soft, - - mildly distended and tender in the left lower quadrant without diffuse peritoneal signs Vital Signs Temp Pulse Resp BP Pulse Ox 98.1 F 90 20 H 176/78 H 100 06/19/17 18:17 06/19/17 18:17 06/19/17 18:17 06/19/17 18:17 06/19/17 18:17 Oxygen Flow Rate (L/min) 2 Oxygen Delivery Method Room Air Weight: 102.5 kg Body Mass Index (BMI) 40.0 Assessment/Plan Active and Suspected Problems (Last Updated 04/23/17 @ 09:56 by Armida Neal ) SBO (small bowel obstruction) (Acute) recurrent partial small bowel obstruction, obstruction seems to be centered around her Con[place]pc[place]-en-Y anastomosis area, recent DVT on Xarelto. I plan to hold his Xarelto and restart Lovenox injections tomorrow. we will add Compazine increased frequency of her fentanyl injections as the patient states the fundal is helping her pain, but is of too shorter duration. for now, we'll not plan to replace her nasogastric tube. We'll maintain her in nothing by mouth status with IV hydration. We'll follow her exam clinically and with laboratory studies and will obtain an abdominal multiview in the morning.
[2017-06-19] MEDS: Menthol/Lanolin/Calamine/Znox 113 GM Tube 1 APPLIC TOPICAL (21:43)
[2017-06-20] VITALS (12 sets, daily range): BP systolic 158–192; BP diastolic 86–99; PULSE 83–98; RESP 16–18; TEMP 37–37.7; O2SAT 95–100
[2017-06-20] MEDS: fentaNYL 100 MCG/2 ML Ampul 25 MCG IV ×2 (01:44→12:30)
[2017-06-20] MEDS: proMETHazine 25 MG/ML Syringe 12.5 MG IV ×2 (01:44→17:17)
[2017-06-20] MEDS: 0.9% Normal Saline 1,000 ML 125 ML IV ×3 (01:49→20:47)
--- NOTE | 2017-06-20 05:00 | RAD_ITS ---
STUDY: X-RAY - ABDOMEN/PELVIS REASON FOR EXAM: Female, 76 years old. Small bowel obstruction TECHNIQUE: AP supine and upright views of the abdomen and pelvis. COMPARISON: CT June 19, 2017 FINDINGS: Normal visualized lung bases. Dilated small bowel loops on the left measuring up to 5.7 cm. Acute air-fluid levels on the upright view. Constipation is suggested involving the proximal colon. Residual contrast in the bladder. There is no demonstrated free abdominal air. The visualized liver, spleen and kidneys are grossly normal in size and morphology. Normal soft tissue structures. There are diffuse degenerative changes of the visualized lumbar spine. RAD/Abd Inc Decub and/or Erect IMPRESSION: Obstructive bowel gas pattern. Electronically Signed: Aiden Luna MD at 5:17 EDT Tel , Service support ,
[2017-06-20 06:25] LABS: Bedside Glucose 173 mg/dL (70-110)
[2017-06-20] MEDS: 0.9% NaCl Peripheral Flush Adult/Peds IV ×3 (06:28→21:59)
--- NOTE | 2017-06-20 08:04 | PN.SURG_ITS ---
Patient Problems: Active and Suspected Problems (Last Updated 04/23/17 @ 09:56 by Armida Neal ) SBO (small bowel obstruction) (Acute) Subjective: still complain of cramping, colicky abdominal pain. Phenergan worked better than Compazine - Physical Exam General: Alert, Oriented x3 Lungs: Clear to auscultation, Normal air movement Cardiovascular: Regular rate, No murmurs Abdomen: Bowel Sounds Present, Soft, Hypoactive Bowel Sounds, Tender - minimally so still mildly distended Vital Signs Temp Pulse Resp BP Pulse Ox 99.2 F H 94 18 161/93 H 98 06/20/17 02:07 06/20/17 02:07 06/20/17 02:07 06/20/17 02:07 06/20/17 02:07 Oxygen Flow Rate (L/min) 2 Oxygen Delivery Method Room Air Weight: 102.5 kg Body Mass Index (BMI) 40.0 Intake and Output for Last 24 Hours 06/18/17 06/19/17 06/20/17 23:59 23:59 23:59 Intake Total 572 / 572 745 / 745 Output Total 220 / 220 Balance 352 / 352 745 / 745 POC Glucose 06/20/17 06:22 POC Glucose 173 H Medical Necessity - Tobacco Use Smoking Status: Never smoker Assessment/Plan Active and Suspected Problems (Last Updated 04/23/17 @ 09:56 by Armida Neal ) SBO (small bowel obstruction) (Acute) recurrent partial small bowel obstruction, obstruction seems to be centered around her Concepción-en-Y anastomosis area, recent DVT on Xarelto. I plan to hold his Xarelto and restart Lovenox injections tomorrow. Compazine did not seem to work as well as Phenegran. We will continue with Phenegran Her IV was lost overnight.have ordered. I am and rectal medications in the time being and we'll plan for a PICC line. Abdominal multiview demonstrates still a possibility of gas, but a persistent partial small bowel obstructive picture. We'll maintain her in nothing by mouth status with IV hydration. We'll follow her exam clinically and with laboratory studies and will obtain an abdominal multiview in the morning.
--- NOTE | 2017-06-20 08:24 | PCM.PN.HOSP ---
Patient Problems: Active and Suspected Problems (Last Updated 04/23/17 @ 09:56 by Armida Neal) SBO (small bowel obstruction) (Acute) Subjective: still with abdominal pain, perhaps less so today. still with nausea and vomiting. pulled out IV this AM, unable to get peripheral IV in. NG unable to be placed. Vitals/I&O's: Vital Signs Temp Pulse Resp BP Pulse Ox 37.3 C H 94 18 161/93 H 98 06/20/17 02:07 06/20/17 02:07 06/20/17 02:07 06/20/17 02:07 06/20/17 02:07 Oxygen Flow Rate (L/min) 2 Oxygen Delivery Method Room Air Weight: 102.5 kg Body Mass Index (BMI) 40.0 Intake and Output for Last 24 Hours 06/18/17 06/19/17 06/20/17 23:59 23:59 23:59 Intake Total 572 / 572 745 / 745 Output Total 220 / 220 Balance 352 / 352 745 / 745 General: Alert, - - uncomfortable. HEENT: Atraumatic, Normocephalic Neck: No Nodes, Thyroid Normal Size and Texture Lungs: Clear to auscultation, Normal air movement, No rhonchi, No wheeze Cardiovascular: Regular rate, Regular Rhythm, Normal S1, Normal S2, No murmurs Abdomen: Hypoactive Bowel Sounds, Distended, Tender Extremities: No edema, No Calf Tenderness Skin: No rashes, No breakdown Psych/Mental Status: Normal Affect, Appropriate Laboratory Results 06/20/17 06:22: POC Glucose 173 H Current Medications Alprazolam (Xanax) 0.5 mg PO QHS PRN PRN Reason: ANXIETY Calamine/Phenol (Calmoseptine Ointment) 1 applic TOPICAL 0600,2200 PRO PRN Reason: Protocol Last Admin: 06/20/17 06:28 Dose: Not Given Dextrose (D50w Syringe) 0 gm IV X1 PRN; Protocol PRN Reason: Hypoglycemia Diltiazem HCl (Cardizem Cd) 240 mg PO DAILY PRO Fentanyl Citrate (Sublimaze (100mcg Ampule)) 25 mcg IV Q1H PRN PRN Reason: PAIN Last Admin: 06/20/17 01:44 Dose: 25 mcg Glucagon () 1 mg IM .X1 PRN PRN Reason: Hypoglycemia Sodium Chloride () 1,000 mls @ 125 mls/hr IV .Q8H PRO Last Admin: 06/20/17 01:49 Dose: 125 mls/hr Insulin Aspart (Novolog Flexpen (Bkc)) 0 units SC TIDAC PRO PRN Reason: Protocol Last Admin: 06/20/17 06:27 Dose: 1 unit Magnesium Hydroxide (Milk Of Magnesia) 30 ml PO DAILY PRN PRN PRN Reason: Constipation Ondansetron HCl (Zofran) 4 mg IV Q8H PRN PRN PRN Reason: NAUSEA Prochlorperazine Edisylate (Compazine Iv) 5 mg IV Q4H PRN PRN PRN Reason: NAUSEA/VOMITING Last Admin: 06/19/17 19:38 Dose: 5 mg Promethazine HCl (Phenergan) 12.5 mg IV Q6H PRN PRN PRN Reason: NAUSEA/VOMITING Last Admin: 06/20/17 01:44 Dose: 12.5 mg Sodium Chloride () 5 - 30 ml IV UD PRN PRN Reason: SALINE FLUSH Last Admin: 06/20/17 06:28 Dose: 30 ml Medical Necessity - Tobacco Use Smoking Status: Never smoker Assessment/Plan Active and Suspected Problems (Last Updated 04/23/17 @ 09:56 by Armida Neal) SBO (small bowel obstruction) (Acute) 1. Small bowel obstruction Plan right now is conservative management with pain control, antiemetics, IV fluids. Will consult Dr. Joyce, of general surgery, to evaluate. When patient was evaluated for a small bowel obstruction in August 2016 tentative plan at that time, was if the patient failed to progress or worsens to possibly transfer to a tertiary facility given her complex surgical history. Hopefully conservative management will be sufficient for her. NGT unable to be placed given prior nasal fracture Slightly improved. 2. Venous thromboembolic disease change to lovenox for now 3. Diabetes mellitus type 2 Patient be n.p.o. so I am going to be holding her oral hypoglycemic agents. Check Handy blood sugars every 6 hours and patient will be on 4. A. fib change to IV dilt and lovenox. 5. 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 Code Visit Inpatient E&M: 02509 Subs Hosp L2
--- NOTE | 2017-06-20 08:32 | PN_ITS ---
Patient Problems: Active and Suspected Problems (Last Updated 04/23/17 @ 09:56 by Armida Neal ) SBO (small bowel obstruction) (Acute) Subjective: still with abdominal pain, perhaps less so today. still with nausea and vomiting. pulled out IV this AM, unable to get peripheral IV in. NG unable to be placed. Vitals/I&O's: Vital Signs Temp Pulse Resp BP Pulse Ox 37.3 C H 94 18 161/93 H 98 06/20/17 02:07 06/20/17 02:07 06/20/17 02:07 06/20/17 02:07 06/20/17 02:07 Oxygen Flow Rate (L/min) 2 Oxygen Delivery Method Room Air Weight: 102.5 kg Body Mass Index (BMI) 40.0 Intake and Output for Last 24 Hours 06/18/17 06/19/17 06/20/17 23:59 23:59 23:59 Intake Total 572 / 572 745 / 745 Output Total 220 / 220 Balance 352 / 352 745 / 745 General: Alert, - - uncomfortable. HEENT: Atraumatic, Normocephalic Neck: No Nodes, Thyroid Normal Size and Texture Lungs: Clear to auscultation, Normal air movement, No rhonchi, No wheeze Cardiovascular: Regular rate, Regular Rhythm, Normal S1, Normal S2, No murmurs Abdomen: Hypoactive Bowel Sounds, Distended, Tender Extremities: No edema, No Calf Tenderness Skin: No rashes, No breakdown Psych/Mental Status: Normal Affect, Appropriate Laboratory Results 06/20/17 06:22: POC Glucose 173 H Current Medications Alprazolam (Xanax) 0.5 mg PO QHS PRN PRN Reason: ANXIETY Calamine/Phenol (Calmoseptine Ointment) 1 applic TOPICAL 0600,2200 PRO PRN Reason: Protocol Last Admin: 06/20/17 06:28 Dose: Not Given Dextrose (D50w Syringe) 0 gm IV X1 PRN; Protocol PRN Reason: Hypoglycemia Diltiazem HCl (Cardizem Cd) 240 mg PO DAILY PRO Fentanyl Citrate (Sublimaze (100mcg Ampule)) 25 mcg IV Q1H PRN PRN Reason: PAIN Last Admin: 06/20/17 01:44 Dose: 25 mcg Glucagon () 1 mg IM .X1 PRN PRN Reason: Hypoglycemia Sodium Chloride () 1,000 mls @ 125 mls/hr IV .Q8H PRO Last Admin: 06/20/17 01:49 Dose: 125 mls/hr Insulin Aspart (Novolog Flexpen (Bkc)) 0 units SC TIDAC PRO PRN Reason: Protocol Last Admin: 06/20/17 06:27 Dose: 1 unit Magnesium Hydroxide (Milk Of Magnesia) 30 ml PO DAILY PRN PRN PRN Reason: Constipation Ondansetron HCl (Zofran) 4 mg IV Q8H PRN PRN PRN Reason: NAUSEA Prochlorperazine Edisylate (Compazine Iv) 5 mg IV Q4H PRN PRN PRN Reason: NAUSEA/VOMITING Last Admin: 06/19/17 19:38 Dose: 5 mg Promethazine HCl (Phenergan) 12.5 mg IV Q6H PRN PRN PRN Reason: NAUSEA/VOMITING Last Admin: 06/20/17 01:44 Dose: 12.5 mg Sodium Chloride () 5 - 30 ml IV UD PRN PRN Reason: SALINE FLUSH Last Admin: 06/20/17 06:28 Dose: 30 ml Medical Necessity - Tobacco Use Smoking Status: Never smoker Assessment/Plan Active and Suspected Problems (Last Updated 04/23/17 @ 09:56 by Armida Neal ) SBO (small bowel obstruction) (Acute) 1. Small bowel obstruction * Plan right now is conservative management with pain control, antiemetics, IV fluids. Will consult Dr. Joyce, of general surgery, to evaluate. When patient was evaluated for a small bowel obstruction in August 2016 tentative plan at that time, was if the patient failed to progress or worsens to possibly transfer to a tertiary facility given her complex surgical history. Hopefully conservative management will be sufficient for her. * NGT unable to be placed given prior nasal fracture * Slightly improved. 2. Venous thromboembolic disease * change to lovenox for now 3. Diabetes mellitus type 2 * Patient be n.p.o. so I am going to be holding her oral hypoglycemic agents. * Check Handy blood sugars every 6 hours and patient will be on 4. A. fib * change to IV dilt and lovenox. 5. 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 Code Visit Inpatient E&M: 06444 Subs Hosp L2
--- NOTE | 2017-06-20 08:42 | NURSING ---
hospital food service worker called for PICC line, ordered by Dr. Ibarra.
--- NOTE | 2017-06-20 08:51 | NURSING ---
stacker returned call, nurse will be here between [phone] for PICC line placement.
[2017-06-20] MEDS: Enoxaparin 100 MG/ML Syringe SC ×2 (08:56→22:01)
[2017-06-20] MEDS: Morphine 2 MG/ML Syringe IM (08:57)
[2017-06-20] MEDS: proMETHazine 25 MG Suppos. RECTAL (09:05)
[2017-06-20] MEDS: Morphine 4 MG/ML Syringe 2 MG IM (10:54)
[2017-06-20] MEDS: proCHLORPERazine 10 MG/2 ML Vial 5 MG IV (12:29)
[2017-06-20 13:09] LABS: Absolute Lymphocyte Count 1.69 X10^3/ul (0.83-4.51); Absolute Neutrophil Count 9.7 X10^3/uL (2.0-7.7); Basophil# 0.01 X10^3/uL; Basophil% 0.1 % (0-1); Hematocrit 46.4 % (37-47); Hemoglobin 15.3 g/dl (12.0-15.0); Lymphocyte # 1.69 X10^3/ul (4.0); Lymphocyte % 13.8 % (19-41); Mean Corpuscular Hgb 30.5 pg (27.0-32.0); Mean Corpuscular Volume 92.4 fL (81-99); Mean Platelet Vol. 9.8 fl (6.2-12.0); Monocyte# 0.77 X10^3/uL; Monocyte% 6.3 % (0-10); Neutrophil # 9.68 X10^3/uL (2.7-7.7); Neutrophil % 79.2 % (47-70); Platelet Count 191 K/mm3 (150-450); RBC Distribution Width CV 14.2 % (11.6-14.6); RBC Distribution Width SD 47.9 fl (35.1-43.9); Red Blood Count 5.02 M/mm3 (4.2-5.4); White Blood Count 12.2 K/mm3 (4.4-11.0)
[2017-06-20 13:10] LABS: POSITIVE COUNT NO; POSITIVE DIFFERENTIAL NO; POSITIVE MORPHOLOGY NO
[2017-06-20 13:21] LABS: Anion Gap 10 (5-15); BUN 13 mg/dL (7-18); BUN/Creat Ratio 23.6 RATIO (10-20); Chloride 103 mmol/L (98-107); Creatinine, Serum 0.55 mg/dL (0.55-1.02); EST Glomerular Filtration Rate 114 mL/min (>60); Est Glom Filt Rate - Afr Amer 138 mL/min (>60); Estimated Creatinine Clearance 40.21 ml/min; Glucose 148 mg/dL (74-106); Potassium 3.6 mmol/L (3.5-5.1); Sodium Level 142 mmol/L (136-145)
[2017-06-20] MEDS: Metoprolol Tartrate 5 MG/5 ML Vial 2.5 MG IV ×2 (13:25→17:37)
[2017-06-20 13:27] LABS: Bedside Glucose 154 mg/dL (70-110)
--- NOTE | 2017-06-20 13:46 | CASEMGMT ---
Social Work Note AMY met with pt to determine discharge needs and concerns. Pt was discharged from TCU yesterday. AMY introduced self and role at [facility]. Pt's daughter was present in room. Pt confirms that she was discharged from TCU yesterday and came into the ER last night. Pt and pt's daughter state that the plan is to return home at discharge. Before pt was discharged from TCU, Hailee REYES in TCU made a referral to [facility] for outpatient therapy. Pt states that her plan is to return home at discharge and follow up with outpatient therapy at [facility]. Plan: Home at discharge and follow up with outpatient therapy Brittani Wilson PUMP ASSEMBLER, [employer]ATIC GRINDER OPERATOR
[2017-06-20] MEDS: Morphine 4 MG/ML Syringe IV ×2 (17:26→21:59)
[2017-06-20 17:51] LABS: Bedside Glucose 161 mg/dL (70-110)
[2017-06-20] MEDS: Ondansetron 4 MG/2 ML Vial IV (21:58)
[2017-06-20] MEDS: ALPRAZolam 0.5 MG Tablet PO (23:56)
[2017-06-21] VITALS (25 sets, daily range): BP systolic 132–165; BP diastolic 67–94; PULSE 64–103; RESP 16–18; TEMP 36.6–37.1; O2SAT 96–100
[2017-06-21] MEDS: Metoprolol Tartrate 5 MG/5 ML Vial 2.5 MG IV ×5 (00:02→23:14)
[2017-06-21] MEDS: 0.9% NaCl Peripheral Flush Adult/Peds IV ×4 (05:35→23:18)
[2017-06-21 06:00] LABS: Bedside Glucose 112 mg/dL (70-110)
--- NOTE | 2017-06-21 06:00 | RAD_ITS ---
STUDY: X-RAY - ABDOMEN/PELVIS REASON FOR EXAM: Female, 76 years old. Small bowel obstruction TECHNIQUE: AP supine and upright views of the abdomen and pelvis. COMPARISON: 06/20/2017 FINDINGS: Normal visualized lung bases. Dilated small bowel loops on the left measuring up to 3.4 cm in diameter. This has improved compared to previous study. Air-fluid levels on the upright view. Right upper quadrant clips. There is no demonstrated free abdominal air. The visualized liver, spleen and kidneys are grossly normal in size and morphology. Normal soft tissue structures. There are diffuse degenerative changes of the visualized lumbar spine. RAD/Abd Inc Decub and/or Erect IMPRESSION: Dilated small bowel loops on the left measuring up to 3.4 cm in diameter. This has improved compared to previous study. Electronically Signed: Aiden Luna MD at 6:24 EDT Tel , Service support ,
[2017-06-21 06:07] LABS: Absolute Lymphocyte Count 2.01 X10^3/ul (0.83-4.51); Absolute Neutrophil Count 8.5 X10^3/uL (2.0-7.7); Basophil# 0.02 X10^3/uL; Basophil% 0.2 % (0-1); Eosinophil# 0.01 X10^3/uL; Eosinophils% 0.1 % (0-5); Hematocrit 43.8 % (37-47); Hemoglobin 14.1 g/dl (12.0-15.0); Lymphocyte # 2.01 X10^3/ul (4.0); Lymphocyte % 17.5 % (19-41); Mean Corp Hgb Conc 32.2 g/gl (32-36); Mean Corpuscular Hgb 30.1 pg (27.0-32.0); Mean Corpuscular Volume 93.6 fL (81-99); Monocyte# 0.92 X10^3/uL; Neutrophil # 8.53 X10^3/uL (2.7-7.7); Platelet Count 196 K/mm3 (150-450); RBC Distribution Width CV 14.1 % (11.6-14.6); RBC Distribution Width SD 48.3 fl (35.1-43.9); Red Blood Count 4.68 M/mm3 (4.2-5.4); White Blood Count 11.5 K/mm3 (4.4-11.0)
[2017-06-21 06:08] LABS: POSITIVE COUNT NO; POSITIVE DIFFERENTIAL NO; POSITIVE MORPHOLOGY NO
[2017-06-21 06:23] LABS: Anion Gap 8 (5-15); BUN 16 mg/dL (7-18); BUN/Creat Ratio 33.7 RATIO (10-20); Calcium,Total 9.1 mg/dL (8.5-10.1); Chloride 106 mmol/L (98-107); Creatinine, Serum 0.48 mg/dL (0.55-1.02); EST Glomerular Filtration Rate 135 mL/min (>60); Est Glom Filt Rate - Afr Amer 164 mL/min (>60); Estimated Creatinine Clearance 40.21 ml/min; Glucose 120 mg/dL (74-106); Potassium 3.3 mmol/L (3.5-5.1); Sodium Level 142 mmol/L (136-145)
[2017-06-21] MEDS: 0.9% Normal Saline 1,000 ML 125 ML IV (06:47)
--- NOTE | 2017-06-21 08:07 | PCM.PN.HOSP ---
Patient Problems: Active and Suspected Problems (Last Updated 04/23/17 @ 09:56 by Armida Neal) SBO (small bowel obstruction) (Acute) Subjective: Feeling better. Would like some ice. Decreased abdominal pain. Only vomited once last night. No diarrhea, no flatus. Vitals/I&O's: Vital Signs Temp Pulse Resp BP Pulse Ox 36.6 C 73 18 150/80 H 100 06/21/17 05:38 06/21/17 07:00 06/21/17 05:38 06/21/17 06:28 06/21/17 06:57 Oxygen Flow Rate (L/min) 2 Oxygen Delivery Method Room Air Weight: 102.5 kg Body Mass Index (BMI) 40.0 Intake and Output for Last 24 Hours 06/19/17 06/20/17 06/21/17 23:59 23:59 23:59 Intake Total 572 / 572 1973 / 1973 1405 / 1405 Output Total 220 / 220 450 / 450 1200 / 1200 Balance 352 / 352 1524 / 1524 205 / 205 General: Alert, No apparent distress HEENT: Atraumatic, Normocephalic Neck: No Nodes, Thyroid Normal Size and Texture Lungs: Clear to auscultation, Normal air movement, No rhonchi, No wheeze Cardiovascular: Regular rate, Regular Rhythm, Normal S1, Normal S2 Abdomen: Bowel Sounds Present, Soft, Non Tender, Non-Distended, No Hepato-splenomegaly Extremities: No edema, No Calf Tenderness Psych/Mental Status: Normal Affect, Appropriate Laboratory Results 06/20/17 12:45: WBC 12.2 H, RBC 5.02, Hgb 15.3 H, Hct 46.4, MCV 92.4, MCH 30.5, MCHC 33.0, RDW 14.2, RDW Differential 47.9 H, Plt Count 191, MPV 9.8, Immature Gran % (Auto) 0.600, Neut % (Auto) 79.2 H, Lymph % (Auto) 13.8 L, [place]uming % (Auto) 6.3, Eos % (Auto) 0.0, Baso % (Auto) 0.1, Absolute Neuts (auto) 9.7 H, Absolute Lymphs (auto) 1.69, Total Counted Not Reportable 06/20/17 12:45: Sodium 142, Potassium 3.6, Chloride 103, Carbon Dioxide 29.0, Anion Gap 10, BUN 13, Creatinine 0.55, Estim Creat Clear Calc 40.21, Est GFR (MDRD) Af Amer 138, Est GFR (MDRD) Non-Af 114, BUN/Creatinine Ratio 23.6 H, Glucose 148 H, Calcium 10.0 06/20/17 13:13: POC Glucose 154 H 06/20/17 17:32: POC Glucose 161 H 06/21/17 05:25: POC Glucose 112 H 06/21/17 05:52: WBC 11.5 H, RBC 4.68, Hgb 14.1, Hct 43.8, MCV 93.6, MCH 30.1, MCHC 32.2, RDW 14.1, RDW Differential 48.3 H, Plt Count 196, MPV 10.0, Immature Gran % (Auto) 0.200, Neut % (Auto) 74.0 H, Lymph % (Auto) 17.5 L, [place] % (Auto) 8.0, Eos % (Auto) 0.1, Baso % (Auto) 0.2, Absolute Neuts (auto) 8.5 H, Absolute Lymphs (auto) 2.01, Total Counted Not Reportable 06/21/17 05:52: Sodium 142, Potassium 3.3 L, Chloride 106, Carbon Dioxide 28.0, Anion Gap 8, BUN 16, Creatinine 0.48 L, Estim Creat Clear Calc 40.21, Est GFR (MDRD) Af Amer 164, Est GFR (MDRD) Non-Af 135, BUN/Creatinine Ratio 33.7 H, Glucose 120 H, Calcium 9.1 06/21/17 05:52: Magnesium 2.0 Current Medications Alprazolam (Xanax) 0.5 mg PO QHS PRN PRN Reason: ANXIETY Last Admin: 06/20/17 23:56 Dose: 0.5 mg Calamine/Phenol (Calmoseptine Ointment) 1 applic TOPICAL 0600,2200 [facility] PRN Reason: Protocol Last Admin: 06/21/17 05:50 Dose: Not Given Dextrose (D50w Syringe) 0 gm IV X1 PRN; Protocol PRN Reason: Hypoglycemia Enoxaparin Sodium (Lovenox) 100 mg SC Q12 [facility] Last Admin: 06/20/17 22:01 Dose: 100 mg Glucagon () 1 mg IM .X1 PRN PRN Reason: Hypoglycemia Famotidine (Pepcid 20mg) 20 mg in 50 mls @ 150 mls/hr IV Q12 [facility] Last Admin: 06/20/17 22:00 Dose: 150 mls/hr Potassium Chloride/Sodium Chloride (Kcl 20meq In 0.45% Ns 1000ml) 1,000 mls @ 125 mls/hr IV .Q8H PRO Insulin Aspart (Novolog Flexpen (Bkc)) 0 units SC TIDAC PRO PRN Reason: Protocol Last Admin: 06/21/17 05:50 Dose: Not Given Magnesium Hydroxide (Milk Of Magnesia) 30 ml PO DAILY PRN PRN PRN Reason: Constipation Metoprolol Tartrate (Lopressor (Beta Farhan)) 2.5 mg IV Q6 [facility] Last Admin: 06/21/17 05:34 Dose: 2.5 mg Morphine Sulfate () 1 - 2 mg IV Q1H PRN PRN PRN Reason: SEVERE PAIN (6-10/10) Last Admin: 06/20/17 21:59 Dose: 2 mg Ondansetron HCl (Zofran) 4 mg IV Q8H PRN PRN PRN Reason: NAUSEA Last Admin: 06/20/17 21:58 Dose: 4 mg Promethazine HCl (Phenergan) 12.5 mg IV Q6H PRN PRN PRN Reason: NAUSEA/VOMITING Last Admin: 06/20/17 17:17 Dose: 12.5 mg Promethazine HCl (Phenergan Suppository) 25 mg RECTAL Q4H PRN PRN PRN Reason: NAUSEA/VOMITING Last Admin: 06/20/17 09:05 Dose: 25 mg Sodium Chloride () 5 - 30 ml IV UD PRN PRN Reason: SALINE FLUSH Last Admin: 06/21/17 05:35 Dose: 30 ml Medical Necessity - Tobacco Use Smoking Status: Never smoker Assessment/Plan Active and Suspected Problems (Last Updated 04/23/17 @ 09:56 by Armida Neal) SBO (small bowel obstruction) (Acute) 1. Small bowel obstruction Plan right now is conservative management with pain control, antiemetics, IV fluids. Will consult Dr. Joyce, of general surgery, to evaluate. When patient was evaluated for a small bowel obstruction in August 2016 tentative plan at that time, was if the patient failed to progress or worsens to possibly transfer to a tertiary facility given her complex surgical history. Hopefully conservative management will be sufficient for her. NGT unable to be placed given prior nasal fracture Improved today Sips and chips for now 2. Venous thromboembolic disease change to lovenox for now 3. Diabetes mellitus type 2 Fair control Patient be n.p.o. so I am going to be holding her oral hypoglycemic agents. Check Handy blood sugars every 6 hours and patient will be on 4. A. fib change to IV metoprolol and lovenox. 5. Hypokalemia: change IVF to 1/2 normal w K check Mag 6. 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 Code Visit Inpatient E&M: 63658 Subs Hosp L2
--- NOTE | 2017-06-21 08:11 | PN_ITS ---
Patient Problems: Active and Suspected Problems (Last Updated 04/23/17 @ 09:56 by Armida Neal ) SBO (small bowel obstruction) (Acute) Subjective: Feeling better. Would like some ice. Decreased abdominal pain. Only vomited once last night. No diarrhea, no flatus. Vitals/I&O's: Vital Signs Temp Pulse Resp BP Pulse Ox 36.6 C 73 18 150/80 H 100 06/21/17 05:38 06/21/17 07:00 06/21/17 05:38 06/21/17 06:28 06/21/17 06:57 Oxygen Flow Rate (L/min) 2 Oxygen Delivery Method Room Air Weight: 102.5 kg Body Mass Index (BMI) 40.0 Intake and Output for Last 24 Hours 06/19/17 06/20/17 06/21/17 23:59 23:59 23:59 Intake Total 572 / 572 1973 / 1973 1405 / 1405 Output Total 220 / 220 450 / 450 1200 / 1200 Balance 352 / 352 1524 / 1524 205 / 205 General: Alert, No apparent distress HEENT: Atraumatic, Normocephalic Neck: No Nodes, Thyroid Normal Size and Texture Lungs: Clear to auscultation, Normal air movement, No rhonchi, No wheeze Cardiovascular: Regular rate, Regular Rhythm, Normal S1, Normal S2 Abdomen: Bowel Sounds Present, Soft, Non Tender, Non-Distended, No Hepato- splenomegaly Extremities: No edema, No Calf Tenderness Psych/Mental Status: Normal Affect, Appropriate Laboratory Results 06/20/17 12:45: WBC 12.2 H, RBC 5.02, Hgb 15.3 H, Hct 46.4, MCV 92.4, MCH 30.5, MCHC 33.0, RDW 14.2, RDW Differential 47.9 H, Plt Count 191, MPV 9.8, Immature Gran % (Auto) 0.600, Neut % (Auto) 79.2 H, Lymph % (Auto) 13.8 L, Snyder % (Auto) 6.3, Eos % (Auto) 0.0, Baso % (Auto) 0.1, Absolute Neuts (auto) 9.7 H, Absolute Lymphs (auto) 1.69, Total Counted Not Reportable 06/20/17 12:45: Sodium 142, Potassium 3.6, Chloride 103, Carbon Dioxide 29.0, Anion Gap 10, BUN 13, Creatinine 0.55, Estim Creat Clear Calc 40.21, Est GFR ( MDRD) Af Amer 138, Est GFR (MDRD) Non-Af 114, BUN/Creatinine Ratio 23.6 H, Glucose 148 H, Calcium 10.0 06/20/17 13:13: POC Glucose 154 H 06/20/17 17:32: POC Glucose 161 H 06/21/17 05:25: POC Glucose 112 H 06/21/17 05:52: WBC 11.5 H, RBC 4.68, Hgb 14.1, Hct 43.8, MCV 93.6, MCH 30.1, MCHC 32.2, RDW 14.1, RDW Differential 48.3 H, Plt Count 196, MPV 10.0, Immature Gran % (Auto) 0.200, Neut % (Auto) 74.0 H, Lymph % (Auto) 17.5 L, Snyder % (Auto) 8.0, Eos % (Auto) 0.1, Baso % (Auto) 0.2, Absolute Neuts (auto) 8.5 H, Absolute Lymphs (auto) 2.01, Total Counted Not Reportable 06/21/17 05:52: Sodium 142, Potassium 3.3 L, Chloride 106, Carbon Dioxide 28.0, Anion Gap 8, BUN 16, Creatinine 0.48 L, Estim Creat Clear Calc 40.21, Est GFR ( MDRD) Af Amer 164, Est GFR (MDRD) Non-Af 135, BUN/Creatinine Ratio 33.7 H, Glucose 120 H, Calcium 9.1 06/21/17 05:52: Magnesium 2.0 Current Medications Alprazolam (Xanax) 0.5 mg PO QHS PRN PRN Reason: ANXIETY Last Admin: 06/20/17 23:56 Dose: 0.5 mg Calamine/Phenol (Calmoseptine Ointment) 1 applic TOPICAL 0600,2200 [facility] PRN Reason: Protocol Last Admin: 06/21/17 05:50 Dose: Not Given Dextrose (D50w Syringe) 0 gm IV X1 PRN; Protocol PRN Reason: Hypoglycemia Enoxaparin Sodium (Lovenox) 100 mg SC Q12 [facility] Last Admin: 06/20/17 22:01 Dose: 100 mg Glucagon () 1 mg IM .X1 PRN PRN Reason: Hypoglycemia Famotidine (Pepcid 20mg) 20 mg in 50 mls @ 150 mls/hr IV Q12 [facility] Last Admin: 06/20/17 22:00 Dose: 150 mls/hr Potassium Chloride/Sodium Chloride (Kcl 20meq In 0.45% Ns 1000ml) 1,000 mls @ 125 mls/hr IV .Q8H PRO Insulin Aspart (Novolog Flexpen (Bkc)) 0 units SC TIDAC PRO PRN Reason: Protocol Last Admin: 06/21/17 05:50 Dose: Not Given Magnesium Hydroxide (Milk Of Magnesia) 30 ml PO DAILY PRN PRN PRN Reason: Constipation Metoprolol Tartrate (Lopressor (Beta Farhan)) 2.5 mg IV Q6 [facility] Last Admin: 06/21/17 05:34 Dose: 2.5 mg Morphine Sulfate () 1 - 2 mg IV Q1H PRN PRN PRN Reason: SEVERE PAIN (6-10/10) Last Admin: 06/20/17 21:59 Dose: 2 mg Ondansetron HCl (Zofran) 4 mg IV Q8H PRN PRN PRN Reason: NAUSEA Last Admin: 06/20/17 21:58 Dose: 4 mg Promethazine HCl (Phenergan) 12.5 mg IV Q6H PRN PRN PRN Reason: NAUSEA/VOMITING Last Admin: 06/20/17 17:17 Dose: 12.5 mg Promethazine HCl (Phenergan Suppository) 25 mg RECTAL Q4H PRN PRN PRN Reason: NAUSEA/VOMITING Last Admin: 06/20/17 09:05 Dose: 25 mg Sodium Chloride () 5 - 30 ml IV UD PRN PRN Reason: SALINE FLUSH Last Admin: 06/21/17 05:35 Dose: 30 ml Medical Necessity - Tobacco Use Smoking Status: Never smoker Assessment/Plan Active and Suspected Problems (Last Updated 04/23/17 @ 09:56 by Armida Neal ) SBO (small bowel obstruction) (Acute) 1. Small bowel obstruction * Plan right now is conservative management with pain control, antiemetics, IV fluids. Will consult Dr. Joyce, of general surgery, to evaluate. When patient was evaluated for a small bowel obstruction in August 2016 tentative plan at that time, was if the patient failed to progress or worsens to possibly transfer to a tertiary facility given her complex surgical history. Hopefully conservative management will be sufficient for her. * NGT unable to be placed given prior nasal fracture * Improved today * Sips and chips for now 2. Venous thromboembolic disease * change to lovenox for now 3. Diabetes mellitus type 2 * Fair control * Patient be n.p.o. so I am going to be holding her oral hypoglycemic agents. * Check Handy blood sugars every 6 hours and patient will be on 4. A. fib * change to IV metoprolol and lovenox. 5. Hypokalemia: * change IVF to 1/2 normal w K * check Mag 6. 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 Code Visit Inpatient E&M: 25017 Subs Hosp L2
--- NOTE | 2017-06-21 11:01 | PN.SURG_ITS ---
Patient Problems: Active and Suspected Problems (Last Updated 04/23/17 @ 09:56 by Armida Neal ) SBO (small bowel obstruction) (Acute) Subjective: Patient resting comfortably in bed at time of visit. Notes she is feeling greatly improved this morning and denies nausea or abdominal pain at this time. She has passed flatus this morning. KUB reviewed and is improved today - Physical Exam General: Alert, Oriented x3, Cooperative, No apparent distress Lungs: Clear to auscultation Cardiovascular: Regular rate, Regular Rhythm Abdomen: Bowel Sounds Present, Soft, Non Tender, Distended - mildly Vital Signs Temp Pulse Resp BP Pulse Ox 98.8 F 73 18 155/80 H 96 06/21/17 08:32 06/21/17 08:32 06/21/17 08:32 06/21/17 08:32 06/21/17 08:32 Oxygen Flow Rate (L/min) 2 Oxygen Delivery Method Room Air Weight: 225 lb 15.581 oz Body Mass Index (BMI) 40.0 Intake and Output for Last 24 Hours 06/19/17 06/20/17 06/21/17 23:59 23:59 23:59 Intake Total 572 / 572 1973 / 1973 1405 / 1405 Output Total 220 / 220 450 / 450 1200 / 1200 Balance 352 / 352 1524 / 1524 205 / 205 Laboratory Tests Past 24 Hrs 06/20/17 06/20/17 06/21/17 12:45 12:45 05:52 WBC 12.2 H 11.5 H RBC 5.02 4.68 Hgb 15.3 H 14.1 Hct 46.4 43.8 MCV 92.4 93.6 MCH 30.5 30.1 MCHC 33.0 32.2 RDW 14.2 14.1 RDW Differential 47.9 H 48.3 H Plt Count 191 196 MPV 9.8 10.0 Immature Gran % (Auto) 0.600 0.200 Neut % (Auto) 79.2 H 74.0 H Lymph % (Auto) 13.8 L 17.5 L [place] % (Auto) 6.3 8.0 Eos % (Auto) 0.0 0.1 Baso % (Auto) 0.1 0.2 Absolute Neuts (auto) 9.7 H 8.5 H Absolute Lymphs (auto) 1.69 2.01 Total Counted Not Reportable Not Reportable Sodium 142 Potassium 3.6 Chloride 103 Carbon Dioxide 29.0 Anion Gap 10 BUN 13 Creatinine 0.55 Estim Creat Clear Calc 40.21 Est GFR (MDRD) Af Amer 138 Est GFR (MDRD) Non-Af 114 BUN/Creatinine Ratio 23.6 H Glucose 148 H Calcium 10.0 Magnesium 06/21/17 06/21/17 05:52 05:52 WBC RBC Hgb Hct MCV MCH MCHC RDW RDW Differential Plt Count MPV Immature Gran % (Auto) Neut % (Auto) Lymph % (Auto) [place] % (Auto) Eos % (Auto) Baso % (Auto) Absolute Neuts (auto) Absolute Lymphs (auto) Total Counted Sodium 142 Potassium 3.3 L Chloride 106 Carbon Dioxide 28.0 Anion Gap 8 BUN 16 Creatinine 0.48 L Estim Creat Clear Calc 40.21 Est GFR (MDRD) Af Amer 164 Est GFR (MDRD) Non-Af 135 BUN/Creatinine Ratio 33.7 H Glucose 120 H Calcium 9.1 Magnesium 2.0 POC Glucose 06/21/17 06/20/17 06/20/17 05:25 17:32 13:13 POC Glucose 112 H 161 H 154 H Medical Necessity - Tobacco Use Smoking Status: Never smoker Assessment/Plan Active and Suspected Problems (Last Updated 04/23/17 @ 09:56 by Armida Neal ) SBO (small bowel obstruction) (Acute) I have reviewed my findings with Dr. Patterson. Recurrent partial small bowel obstruction, obstruction centered around her [place]- en-Y anastomosis area, recent DVT on Xarelto, currently on Lovenox. Clinically improved today Diet advanced to ice chips and sips of water We appreciate the opportunity to participate in this patient's care and will continue to follow
[2017-06-21] MEDS: Enoxaparin 100 MG/ML Syringe SC ×2 (11:35→22:58)
[2017-06-21 16:35] LABS: Bedside Glucose 89 mg/dL (70-110)
[2017-06-21 18:16] LABS: Bedside Glucose 155 mg/dL (70-110)
[2017-06-21] MEDS: ALPRAZolam 0.5 MG Tablet PO (22:57)
[2017-06-22] VITALS (8 sets, daily range): BP systolic 137–162; BP diastolic 68–92; PULSE 60–86; RESP 16–18; TEMP 36.6–36.8; O2SAT 94–99
[2017-06-22] MEDS: Morphine 4 MG/ML Syringe IV (00:49)
[2017-06-22] MEDS: 0.9% NaCl Peripheral Flush Adult/Peds IV ×3 (00:50→06:05)
[2017-06-22] MEDS: Metoprolol Tartrate 5 MG/5 ML Vial 2.5 MG IV (05:59)
[2017-06-22 06:40] LABS: Bedside Glucose 100 mg/dL (70-110)
[2017-06-22 06:43] LABS: Anion Gap 6 (5-15); BUN 10 mg/dL (7-18); BUN/Creat Ratio 29.8 RATIO (10-20); Calcium,Total 8.9 mg/dL (8.5-10.1); Chloride 109 mmol/L (98-107); Creatinine, Serum 0.34 mg/dL (0.55-1.02); EST Glomerular Filtration Rate 202 mL/min (>60); Est Glom Filt Rate - Afr Amer 244 mL/min (>60); Estimated Creatinine Clearance 40.21 ml/min; Glucose 95 mg/dL (74-106); Magnesium 1.8 mg/dL (1.6-2.6); Potassium 3.4 mmol/L (3.5-5.1); Sodium Level 143 mmol/L (136-145)
--- NOTE | 2017-06-22 09:08 | PCM.PN.HOSP ---
Patient Problems: Active and Suspected Problems (Last Updated 04/23/17 @ 09:56 by Armida Neal) SBO (small bowel obstruction) (Acute) Subjective: Feeling better. Tolerating PO. Vitals/I&O's: Vital Signs Temp Pulse Resp BP Pulse Ox 36.6 C 70 16 162/92 H 99 06/22/17 06:20 06/22/17 06:20 06/22/17 06:20 06/22/17 06:20 06/22/17 07:21 Oxygen Flow Rate (L/min) 2 Oxygen Delivery Method Room Air Weight: 102.5 kg Body Mass Index (BMI) 40.0 Intake and Output for Last 24 Hours 06/20/17 06/21/17 06/22/17 23:59 23:59 23:59 Intake Total 1973 / 1973 3533 / 3533 895 / 895 Output Total 450 / 450 1500 / 1500 1000 / 1000 Balance 1524 / 1524 2033 / 2033 -105 / -105 General: Alert, Cooperative, No apparent distress HEENT: Atraumatic, Normocephalic Neck: No Nodes, Thyroid Normal Size and Texture Lungs: Clear to auscultation, Normal air movement, No rhonchi, No wheeze Cardiovascular: Regular rate, Regular Rhythm, Normal S1, Normal S2 Abdomen: Bowel Sounds Present, Soft, Non Tender, Non-Distended Extremities: No edema, No Calf Tenderness Psych/Mental Status: Normal Affect, Appropriate Laboratory Results 06/21/17 11:33: POC Glucose 89 06/21/17 17:23: POC Glucose 155 H 06/22/17 06:02: Sodium 143, Potassium 3.4 L, Chloride 109 H, Carbon Dioxide 28.0, Anion Gap 6, BUN 10, Creatinine 0.34 L, Estim Creat Clear Calc 40.21, Est GFR (MDRD) Af Amer 244, Est GFR (MDRD) Non-Af 202, BUN/Creatinine Ratio 29.8 H, Glucose 95, Calcium 8.9, Magnesium 1.8 06/22/17 06:38: POC Glucose 100 Current Medications Alprazolam (Xanax) 0.5 mg PO QHS PRN PRN Reason: ANXIETY Last Admin: 06/21/17 22:57 Dose: 0.5 mg Calamine/Phenol (Calmoseptine Ointment) 1 applic TOPICAL 0600,2200 PRO PRN Reason: Protocol Last Admin: 06/22/17 06:00 Dose: Not Given Dextrose (D50w Syringe) 0 gm IV X1 PRN; Protocol PRN Reason: Hypoglycemia Enoxaparin Sodium (Lovenox) 100 mg SC Q12 [facility] Last Admin: 06/21/17 22:58 Dose: 100 mg Glucagon () 1 mg IM .X1 PRN PRN Reason: Hypoglycemia Famotidine (Pepcid 20mg) 20 mg in 50 mls @ 150 mls/hr IV Q12 [facility] Last Admin: 06/21/17 22:57 Dose: 150 mls/hr Potassium Chloride/Sodium Chloride (Kcl 20meq In 0.45% Ns 1000ml) 1,000 mls @ 125 mls/hr IV .Q8H [facility] Last Admin: 06/22/17 02:04 Dose: 125 mls/hr Insulin Aspart (Novolog Flexpen (Bkc)) 0 units SC TIDAC [facility] PRN Reason: Protocol Last Admin: 06/22/17 06:40 Dose: Not Given Magnesium Hydroxide (Milk Of Magnesia) 30 ml PO DAILY PRN PRN PRN Reason: Constipation Metoprolol Tartrate (Lopressor (Beta Farhan)) 2.5 mg IV Q6 [facility] Last Admin: 06/22/17 05:59 Dose: 2.5 mg Morphine Sulfate () 1 - 2 mg IV Q1H PRN PRN PRN Reason: SEVERE PAIN (6-10/10) Last Admin: 06/22/17 00:49 Dose: 2 mg Ondansetron HCl (Zofran) 4 mg IV Q8H PRN PRN PRN Reason: NAUSEA Last Admin: 06/20/17 21:58 Dose: 4 mg Promethazine HCl (Phenergan) 12.5 mg IV Q6H PRN PRN PRN Reason: NAUSEA/VOMITING Last Admin: 06/20/17 17:17 Dose: 12.5 mg Promethazine HCl (Phenergan Suppository) 25 mg RECTAL Q4H PRN PRN PRN Reason: NAUSEA/VOMITING Last Admin: 06/20/17 09:05 Dose: 25 mg Sodium Chloride () 5 - 30 ml IV UD PRN PRN Reason: SALINE FLUSH Last Admin: 06/22/17 06:05 Dose: 10 ml Medical Necessity - Tobacco Use Smoking Status: Never smoker Assessment/Plan Active and Suspected Problems (Last Updated 04/23/17 @ 09:56 by Armida Neal) SBO (small bowel obstruction) (Acute) 1. Small bowel obstruction Plan right now is conservative management with pain control, antiemetics, IV fluids. Will consult Dr. Joyce, of general surgery, to evaluate. When patient was evaluated for a small bowel obstruction in August 2016 tentative plan at that time, was if the patient failed to progress or worsens to possibly transfer to a tertiary facility given her complex surgical history. Hopefully conservative management will be sufficient for her. NGT unable to be placed given prior nasal fracture Improved today Advance to soft diet 2. Venous thromboembolic disease change to lovenox for now 3. Diabetes mellitus type 2 Fair control Patient be n.p.o. so I am going to be holding her oral hypoglycemic agents. Check Handy blood sugars every 6 hours and patient will be on 4. A. fib change to IV metoprolol and lovenox. 5. Hypokalemia: change IVF to 1/2 normal w K Mag ok 6. 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 Code Visit Inpatient E&M: 31414 Subs Hosp L2
--- NOTE | 2017-06-22 09:12 | PN_ITS ---
Patient Problems: Active and Suspected Problems (Last Updated 04/23/17 @ 09:56 by Armida Neal ) SBO (small bowel obstruction) (Acute) Subjective: Feeling better. Tolerating PO. Vitals/I&O's: Vital Signs Temp Pulse Resp BP Pulse Ox 36.6 C 70 16 162/92 H 99 06/22/17 06:20 06/22/17 06:20 06/22/17 06:20 06/22/17 06:20 06/22/17 07:21 Oxygen Flow Rate (L/min) 2 Oxygen Delivery Method Room Air Weight: 102.5 kg Body Mass Index (BMI) 40.0 Intake and Output for Last 24 Hours 06/20/17 06/21/17 06/22/17 23:59 23:59 23:59 Intake Total 1973 / 1973 3533 / 3533 895 / 895 Output Total 450 / 450 1500 / 1500 1000 / 1000 Balance 1524 / 1524 2033 / 2033 -105 / -105 General: Alert, Cooperative, No apparent distress HEENT: Atraumatic, Normocephalic Neck: No Nodes, Thyroid Normal Size and Texture Lungs: Clear to auscultation, Normal air movement, No rhonchi, No wheeze Cardiovascular: Regular rate, Regular Rhythm, Normal S1, Normal S2 Abdomen: Bowel Sounds Present, Soft, Non Tender, Non-Distended Extremities: No edema, No Calf Tenderness Psych/Mental Status: Normal Affect, Appropriate Laboratory Results 06/21/17 11:33: POC Glucose 89 06/21/17 17:23: POC Glucose 155 H 06/22/17 06:02: Sodium 143, Potassium 3.4 L, Chloride 109 H, Carbon Dioxide 28.0 , Anion Gap 6, BUN 10, Creatinine 0.34 L, Estim Creat Clear Calc 40.21, Est GFR (MDRD) Af Amer 244, Est GFR (MDRD) Non-Af 202, BUN/Creatinine Ratio 29.8 H, Glucose 95, Calcium 8.9, Magnesium 1.8 06/22/17 06:38: POC Glucose 100 Current Medications Alprazolam (Xanax) 0.5 mg PO QHS PRN PRN Reason: ANXIETY Last Admin: 06/21/17 22:57 Dose: 0.5 mg Calamine/Phenol (Calmoseptine Ointment) 1 applic TOPICAL 0600,2200 PRO PRN Reason: Protocol Last Admin: 06/22/17 06:00 Dose: Not Given Dextrose (D50w Syringe) 0 gm IV X1 PRN; Protocol PRN Reason: Hypoglycemia Enoxaparin Sodium (Lovenox) 100 mg SC Q12 [facility] Last Admin: 06/21/17 22:58 Dose: 100 mg Glucagon () 1 mg IM .X1 PRN PRN Reason: Hypoglycemia Famotidine (Pepcid 20mg) 20 mg in 50 mls @ 150 mls/hr IV Q12 [facility] Last Admin: 06/21/17 22:57 Dose: 150 mls/hr Potassium Chloride/Sodium Chloride (Kcl 20meq In 0.45% Ns 1000ml) 1,000 mls @ 125 mls/hr IV .Q8H [facility] Last Admin: 06/22/17 02:04 Dose: 125 mls/hr Insulin Aspart (Novolog Flexpen (Bkc)) 0 units SC TIDAC [facility] PRN Reason: Protocol Last Admin: 06/22/17 06:40 Dose: Not Given Magnesium Hydroxide (Milk Of Magnesia) 30 ml PO DAILY PRN PRN PRN Reason: Constipation Metoprolol Tartrate (Lopressor (Beta Farhan)) 2.5 mg IV Q6 [facility] Last Admin: 06/22/17 05:59 Dose: 2.5 mg Morphine Sulfate () 1 - 2 mg IV Q1H PRN PRN PRN Reason: SEVERE PAIN (6-10/10) Last Admin: 06/22/17 00:49 Dose: 2 mg Ondansetron HCl (Zofran) 4 mg IV Q8H PRN PRN PRN Reason: NAUSEA Last Admin: 06/20/17 21:58 Dose: 4 mg Promethazine HCl (Phenergan) 12.5 mg IV Q6H PRN PRN PRN Reason: NAUSEA/VOMITING Last Admin: 06/20/17 17:17 Dose: 12.5 mg Promethazine HCl (Phenergan Suppository) 25 mg RECTAL Q4H PRN PRN PRN Reason: NAUSEA/VOMITING Last Admin: 06/20/17 09:05 Dose: 25 mg Sodium Chloride () 5 - 30 ml IV UD PRN PRN Reason: SALINE FLUSH Last Admin: 06/22/17 06:05 Dose: 10 ml Medical Necessity - Tobacco Use Smoking Status: Never smoker Assessment/Plan Active and Suspected Problems (Last Updated 04/23/17 @ 09:56 by Armida Neal ) SBO (small bowel obstruction) (Acute) 1. Small bowel obstruction * Plan right now is conservative management with pain control, antiemetics, IV fluids. Will consult Dr. Joyce, of general surgery, to evaluate. When patient was evaluated for a small bowel obstruction in August 2016 tentative plan at that time, was if the patient failed to progress or worsens to possibly transfer to a tertiary facility given her complex surgical history. Hopefully conservative management will be sufficient for her. * NGT unable to be placed given prior nasal fracture * Improved today * Advance to soft diet 2. Venous thromboembolic disease * change to lovenox for now 3. Diabetes mellitus type 2 * Fair control * Patient be n.p.o. so I am going to be holding her oral hypoglycemic agents. * Check Handy blood sugars every 6 hours and patient will be on 4. A. fib * change to IV metoprolol and lovenox. 5. Hypokalemia: * change IVF to 1/2 normal w K * Mag ok 6. 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 Code Visit Inpatient E&M: 02624 Subs Hosp L2
[2017-06-22] MEDS: dilTIAZem CD 240 MG Capsule PO (12:19)
[2017-06-22 12:26] LABS: Bedside Glucose 163 mg/dL (70-110)
--- NOTE | 2017-06-22 14:54 | DCINST_ITS ---
- Discharge Diagnoses Current Active Problems: Current Active and Chronic Problems (Last Updated 04/23/17 @ 09:56 by Armida Neal) SBO (small bowel obstruction) (Acute) You will use the following diet at home:: Cardiac - soft, advance as tolerated Your food should be the consistency of: Mechanical soft (ground) - advance as tolerated Your liquids should be the consistency of: Regular/Thin Discharge Activity: Return to Normal Activity Call your doctor if you observe: Fever of 101 or Higher, Shortness of breath, Chest pain, - - worsening abdominal pain. Allergies/Adverse Reactions: Allergies ramelteon [From Rozerem] Allergy (Verified 06/19/17 12:51) Other bupropion Adverse Reaction (Verified 06/19/17 12:51) Other UNKNOWN bupropion HCl [From Wellbutrin] Adverse Reaction (Verified 06/19/17 12:51) Other UNKNOWN dexfenfluramine HCl [From Redux] Adverse Reaction (Verified 06/19/17 12:51) Unknown hydrochlorothiazide Adverse Reaction (Verified 06/19/17 12:51) Other UNKNOWN ketorolac tromethamine [From Toradol] Adverse Reaction (Verified 06/19/17 12:51) Itching oxaprozin [From Daypro] Adverse Reaction (Verified 06/19/17 12:51) Other UNKNOWN Medications to take at Discharge ALPRAZolam [Xanax] 0.5 mg PO QHS 12/11/13 Diltiazem CD [Cardizem CD] 240 mg PO DAILY 12/11/13 Sitagliptin Phosphate [Januvia] 100 mg PO DAILY 05/30/17 Acetaminophen [Tylenol] 1,000 mg PO Q8H PRN PRN tablet 06/12/17 Empagliflozin [Jardiance] 25 mg PO DAILY #30 tab 06/12/17 Menthol/Lanolin/Calamine/Znox [Calmoseptine Ointment] 1 applic TOPICAL 0600, 2200 tube 06/12/17 Ondansetron [Zofran Odt] 4 mg PO Q6H PRN PRN #30 tab 06/12/17 Rivaroxaban [Xarelto] 20 mg PO DAILY@0600 #30 tab 06/12/17 Oxycodone [Oxyir] 5 - 10 mg PO Q4H PRN PRN 3 Days #12 tablet 06/22/17 The following prescriptions were given: Oxycodone [Oxyir] 5 - 10 mg PO Q4H PRN PRN 3 Days #12 tablet PRN Reason: Severe Pain (-11/27) Primary Care Physician: Luanne Aquino MD [Primary Care Provider] - Within 2 Weeks Proposed Discharge Date: 06/22/17
--- NOTE | 2017-06-22 14:54 | PCM.DC.SUM ---
Discharge Date and Diagnosis - Problem List Patient Problems: Active and Suspected Problems (Last Updated 04/23/17 @ 09:56 by Armida Neal) SBO (small bowel obstruction) (Acute) Date of Admission: 06/19/17 Date of Discharge: 06/22/17 - Primary Discharge Diagnosis Active and Suspected Problems (Last Updated 04/23/17 @ 09:56 by Armida Neal) SBO (small bowel obstruction) (Acute) - Secondary Discharge Diagnosis Chronic Problems (Last Updated 04/23/17 @ 09:56 by Armida Neal) Diabetes mellitus (Chronic) Anxiety (Chronic) Edema (Chronic) Right knee meniscus surgery (Chronic) Afib (Chronic) SBO (small bowel obstruction) (Chronic) Hyperlipidemia (Chronic) Osteoarthritis (Chronic) Hypertension (Chronic) Type 2 diabetes mellitus (Chronic) Hospital Course and Treatment Imaging Results: Clinical Impression(s) from Imaging Studies Abdomen/Pelvis CT 06/19/17 13:33 IMPRESSION: Early low grade proximal small bowel obstruction versus localized ileus and adynamic segment. Extensive Postop changes as above. Electronically Signed: Fabricio Interiano MD at 16:18 EDT , Service support , Abdomen X-Ray 06/20/17 05:00 IMPRESSION: Obstructive bowel gas pattern. Electronically Signed: Aiden Luna MD at 5:17 EDT Tel , Service support , Abdomen X-Ray 06/21/17 06:00 IMPRESSION: Dilated small bowel loops on the left measuring up to 3.4 cm in diameter. This has improved compared to previous study. Electronically Signed: Aiden Luna MD at 6:24 EDT Tel , Service support , [facility]. Operations: None Procedures: None Summary of Care Provided: The patient is a 76 year old F presents with abdominal pain. He was just discharged from the transitional care unit on an while she was very patient stated that she was having abdominal pain. Patient was sent home nonetheless. Patient presented to the emergency room and was found to have a small bowel obstruction. NG tube was attempted but unsuccessful given prior nasal bone fractures. General surgery was consulted but patient overall improved. Past couple days patient tolerated clear and then soft diet. Plan is for the patient to be discharged home today. As patient is very discharge from transitional care unit patient had outpatient therapy services established. [] Discharge Diet: Low fat/ Low Cholesterol Discharge Activity: Return to Normal Activity Call your doctor if you observe: Fever of 101 or Higher, Shortness of breath, Chest pain, - - worsening abdominal pain. Home Medications: Medications to take at Discharge ALPRAZolam [Xanax] 0.5 mg PO QHS 12/11/13 Diltiazem CD [Cardizem CD] 240 mg PO DAILY 12/11/13 Sitagliptin Phosphate [Januvia] 100 mg PO DAILY 05/30/17 Acetaminophen [Tylenol] 1,000 mg PO Q8H PRN PRN tablet 06/12/17 Empagliflozin [Jardiance] 25 mg PO DAILY #30 tab 06/12/17 Menthol/Lanolin/Calamine/Znox [Calmoseptine Ointment] 1 applic TOPICAL 0600,2200 tube 06/12/17 Ondansetron [Zofran Odt] 4 mg PO Q6H PRN PRN #30 tab 06/12/17 Rivaroxaban [Xarelto] 20 mg PO DAILY@0600 #30 tab 06/12/17 Oxycodone [Oxyir] 5 - 10 mg PO Q4H PRN PRN 3 Days #12 tablet 06/22/17 Following Prescrptions Were Given to Patient: Oxycodone [Oxyir] 5 - 10 mg PO Q4H PRN PRN 3 Days #12 tablet PRN Reason: Severe Pain (6-11/27) Primary Care Physician: Luanne Aquino MD [Primary Care Provider] - Within 2 Weeks Disposition: Home Minutes spent on discharge:: 32 Patient Condition:: Good Medical Necessity - Tobacco Use Smoking Status: Never smoker Meaningful Use Info Meaningful Use Diagnoses (Choose all that apply): None applicable Code Visit Inpatient E&M: 24752 Disch Hosp
--- NOTE | 2017-06-22 14:57 | DS.PCM_ITS ---
Discharge Date and Diagnosis - Problem List Patient Problems: Active and Suspected Problems (Last Updated 04/23/17 @ 09:56 by Armida Neal ) SBO (small bowel obstruction) (Acute) Date of Admission: 06/19/17 Date of Discharge: 06/22/17 - Primary Discharge Diagnosis Active and Suspected Problems (Last Updated 04/23/17 @ 09:56 by Armida Neal ) SBO (small bowel obstruction) (Acute) - Secondary Discharge Diagnosis Chronic Problems (Last Updated 04/23/17 @ 09:56 by Armida Neal) Diabetes mellitus (Chronic) Anxiety (Chronic) Edema (Chronic) Right knee meniscus surgery (Chronic) Afib (Chronic) SBO (small bowel obstruction) (Chronic) Hyperlipidemia (Chronic) Osteoarthritis (Chronic) Hypertension (Chronic) Type 2 diabetes mellitus (Chronic) Hospital Course and Treatment Imaging Results: Clinical Impression(s) from Imaging Studies Abdomen/Pelvis CT 06/19/17 13:33 IMPRESSION: Early low grade proximal small bowel obstruction versus localized ileus and adynamic segment. Extensive Postop changes as above. Electronically Signed: Fabricio Interiano MD at 16:18 EDT , Service support , Abdomen X-Ray 06/20/17 05:00 IMPRESSION: Obstructive bowel gas pattern. Electronically Signed: Aiden Luna MD at 5:17 EDT Tel , Service support , Abdomen X-Ray 06/21/17 06:00 IMPRESSION: Dilated small bowel loops on the left measuring up to 3.4 cm in diameter. This has improved compared to previous study. Electronically Signed: Aiden Luna MD at 6:24 EDT Tel , Service support , [facility]. Operations: None Procedures: None Summary of Care Provided: The patient is a 76 year old F presents with abdominal pain. He was just discharged from the transitional care unit on an while she was very patient stated that she was having abdominal pain. Patient was sent home nonetheless. Patient presented to the emergency room and was found to have a small bowel obstruction. NG tube was attempted but unsuccessful given prior nasal bone fractures. General surgery was consulted but patient overall improved. Past couple days patient tolerated clear and then soft diet. Plan is for the patient to be discharged home today. As patient is very discharge from transitional care unit patient had outpatient therapy services established. [] Discharge Diet: Low fat/ Low Cholesterol Discharge Activity: Return to Normal Activity Call your doctor if you observe: Fever of 101 or Higher, Shortness of breath, Chest pain, - - worsening abdominal pain. Home Medications: Medications to take at Discharge ALPRAZolam [Xanax] 0.5 mg PO QHS 12/11/13 Diltiazem CD [Cardizem CD] 240 mg PO DAILY 12/11/13 Sitagliptin Phosphate [Januvia] 100 mg PO DAILY 05/30/17 Acetaminophen [Tylenol] 1,000 mg PO Q8H PRN PRN tablet 06/12/17 Empagliflozin [Jardiance] 25 mg PO DAILY #30 tab 06/12/17 Menthol/Lanolin/Calamine/Znox [Calmoseptine Ointment] 1 applic TOPICAL 0600, 2200 tube 06/12/17 Ondansetron [Zofran Odt] 4 mg PO Q6H PRN PRN #30 tab 06/12/17 Rivaroxaban [Xarelto] 20 mg PO DAILY@0600 #30 tab 06/12/17 Oxycodone [Oxyir] 5 - 10 mg PO Q4H PRN PRN 3 Days #12 tablet 06/22/17 Following Prescrptions Were Given to Patient: Oxycodone [Oxyir] 5 - 10 mg PO Q4H PRN PRN 3 Days #12 tablet PRN Reason: Severe Pain (6-11/27) Primary Care Physician: Luanne Aquino MD [Primary Care Provider] - Within 2 Weeks Disposition: Home Minutes spent on discharge:: 32 Patient Condition:: Good Medical Necessity - Tobacco Use Smoking Status: Never smoker Meaningful Use Info Meaningful Use Diagnoses (Choose all that apply): None applicable Code Visit Inpatient E&M: 04833 Disch Hosp
[2017-06-22] MEDS: oxyCODONE 5 MG Tablet PO (15:04)
--- NOTE | 2017-06-24 15:48 | CASEMGMT ---
HIRAM LILLY Discharge Follow-up Phone Call: CEZAR: Rhianna Strata: 3 Call Date: 06/24/17 Discharge Date: 06/22/17 Time of Call: 1539 Duration: 1 Min Admitting Diagnosis: Small bowel obstruction HIRAM LILLY attempted to complete follow-up phone in regarding to recent hospitalization. No answer, voice message left with return contact information. No follow-up appt scheduled prior to discharge.
== END 2017-06-22 15:41 | disposition home or self-care (01) | DRG 389 ==
LOC: ED 13:35 → MS3 17:43
PROVIDERS: Surgery; Emergency Provider Emergency Medicine; Family Provider Internal Medicine; PCP Internal Medicine
DX: K56.600 Partial intestinal obstruction, unspecified as to cause (principal); I82.90 Acute embolism and thrombosis of unspecified vein; Z68.41 Body mass index [BMI] 40.0-44.9, adult; E11.9 Type 2 diabetes mellitus without complications; F41.9 Anxiety disorder, unspecified; I48.2 Chronic atrial fibrillation; E78.5 Hyperlipidemia, unspecified; M19.90 Unspecified osteoarthritis, unspecified site; I10 Essential (primary) hypertension; E66.9 Obesity, unspecified; E87.6 Hypokalemia; Z98.0 Intestinal bypass and anastomosis status
CPT/HCPCS: 36569; 74019; 74177; 80048; 82962; 83605; 83690; 83735; 85025; 94762; 97110; 97162; 97165; 97530; 97802; 99283; J7030; Q9967; A4216; J2405

== ENCOUNTER 2017-07-31 13:44 | Emergency (ER) | payer MEDICARE, SELFPAY ==
[2017-07-31 13:45] VITALS: BP 141/90; PULSE 81; RESP 18; TEMP 36.8; O2SAT 94; BMI 40.6
[2017-07-31 14:09] VITALS: BP 179/75; PULSE 75; RESP 14; O2SAT 95
--- NOTE | 2017-07-31 14:11 | EKG12_ITS ---
Test Reason : PALPS Blood Pressure : / mmHG Vent. Rate : 079 BPM Atrial Rate : 079 BPM P-R Int : 170 ms QRS Dur : 084 ms QT Int : 336 ms P-R-T Axes : 055 -13 072 degrees QTc Int : 385 ms Normal sinus rhythm Low voltage QRS (LIMB LEADS) Nonspecific T wave abnormality Abnormal ECG Confirmed by DWIGHT KEE, ANNE ([id number]), science editor JIMMY HART ([id number]) on 08/02/2017 2:43:07 PM Referred By: ABDIAS Confirmed By:ANNE QUINTANILLA MD
--- NOTE | 2017-07-31 14:15 | RAD_ITS ---
STUDY: X-RAY CHEST REASON FOR EXAM: Female, 76 years old. PALPITATIONS, PT STATES SHE IS BACK IN AFIB, COMPLAINS OF PALPITATIONS AND SOB FOR ONE WEEK. TECHNIQUE: Single AP portable view of the chest. COMPARISON: None. FINDINGS: Subsegmental atelectasis are noted in the left lung base. There is no demonstrated pleural abnormality. Normal size heart. Normal mediastinum and deondre. Normal visualized pulmonary arteries. Normal visualized aortic arch and descending thoracic aorta. Normal visualized thoracic spine. Normal visualized ribs, clavicles, and shoulders. There is no demonstrated abnormality of the visualized soft tissue structures of the upper abdomen. RAD/Chest 1 View (Portable) IMPRESSION: No demonstrated acute cardiopulmonary process. Electronically Signed: Chelsea Bhatt MD at 14:41 EDT Tel , Service support ,
[2017-07-31 14:23] LABS: Absolute Lymphocyte Count 2.31 X10^3/ul (0.83-4.51); Absolute Neutrophil Count 5.6 X10^3/uL (2.0-7.7); Basophil# 0.03 X10^3/uL; Basophil% 0.3 % (0-1); Eosinophil# 0.05 X10^3/uL; Eosinophils% 0.6 % (0-5); Hematocrit 47.4 % (37-47); Hemoglobin 15.5 g/dl (12.0-15.0); Lymphocyte # 2.31 X10^3/ul (4.0); Lymphocyte % 26.6 % (19-41); Mean Corp Hgb Conc 32.7 g/gl (32-36); Mean Corpuscular Hgb 29.9 pg (27.0-32.0); Mean Corpuscular Volume 91.5 fL (81-99); Mean Platelet Vol. 10.1 fl (6.2-12.0); Monocyte# 0.59 X10^3/uL; Monocyte% 6.8 % (0-10); Neutrophil # 5.61 X10^3/uL (2.7-7.7); Neutrophil % 64.8 % (47-70); Platelet Count 175 K/mm3 (150-450); RBC Distribution Width CV 14.2 % (11.6-14.6); RBC Distribution Width SD 47.7 fl (35.1-43.9); Red Blood Count 5.18 M/mm3 (4.2-5.4); White Blood Count 8.7 K/mm3 (4.4-11.0)
[2017-07-31 14:25] LABS: POSITIVE COUNT NO; POSITIVE DIFFERENTIAL NO; POSITIVE MORPHOLOGY NO
[2017-07-31 14:37] LABS: Anion Gap 10 (5-15); BUN 13 mg/dL (7-18); BUN/Creat Ratio 14.1 RATIO (10-20); Calcium,Total 10.3 mg/dL (8.5-10.1); Chloride 102 mmol/L (98-107); Creatinine, Serum 0.92 mg/dL (0.55-1.02); EST Glomerular Filtration Rate 63 mL/min (>60); Est Glom Filt Rate - Afr Amer 76 mL/min (>60); Estimated Creatinine Clearance 43.71 ml/min; Glucose 179 mg/dL (74-106); Potassium 3.9 mmol/L (3.5-5.1); Sodium Level 137 mmol/L (136-145)
[2017-07-31 15:04] VITALS: O2SAT 93
--- NOTE | 2017-07-31 15:52 | ED.VISSUMM ---
- ER Visit Summary Date of Service: 07/31/17 Chief Complaint: Palpitations with a prior history of A. fib. History of Present Illness: The patient is a 76 F history of prior intermittent A. fib, right leg DVT and insulin-dependent diabetes. Patient states I am back in A. fib. States symptoms been going on for 1 week. With palpitations. She denies chest pain. States she has had some intermittent shortness of breath. No hemoptysis. No pleuritic chest pain. Physical Examination: Very well-appearing older female vital signs stable afebrile. Pulse ox 95% room air no signs of hypoxia. HEENT exam unremarkable neck nontender no lymphadenopathy. Lungs clear to auscultation bilaterally. Heart regular rate and rhythm no murmur rate about 74. Abdomen soft and nontender. Normal bowel sounds no peritoneal signs. Moving all 4 extremities. Neurovascular intact. Calves without tenderness or edema. Neurologically awake alert with no focal motor deficits. Test Results: Patient is a normal exam with palpitations per history. Test results chest x-ray normal cardiac silhouette and mediastinum read by myself. And the radiologist. EKG sinus rhythm rate 79 with no signs of TX or ischemia. No dysrhythmia. CBC normal. Chemistries normal glucose 179 normal creatinine and gap. Troponin normal. Emergency Department Course and Treatment: Repeat exam patient is doing well at 1550 10 be discharged home. She has had no signs of A. fib the entire time in the ER. Treatment Plan: Discharged home from the Dr. Puentes of cardiology. Disposition: Discharge Impression: Acute palpitations of uncertain etiology History of prior atrial fibrillation History of hypertension and insulin-dependent diabetes History of DVT on Xarelto This note was generated with [employer] dictation software. It may contain incorrect words, spelling, and punctuation that were not noted in review of the chart prior to signing ED Disposition - Plan for ED Patient: Chief Complaint: Palpitations Referrals: Luanne Aquino MD [Primary Care Provider] -
--- NOTE | 2017-07-31 15:55 | ED.DCSUM_ITS ---
- ER Visit Summary Date of Service: 07/31/17 Chief Complaint: Palpitations with a prior history of A. fib. History of Present Illness: The patient is a 76 F history of prior intermittent A. fib, right leg DVT and insulin-dependent diabetes. Patient states I am back in A. fib. States symptoms been going on for 1 week. With palpitations. She denies chest pain. States she has had some intermittent shortness of breath. No hemoptysis. No pleuritic chest pain. Physical Examination: Very well-appearing older female vital signs stable afebrile. Pulse ox 95% room air no signs of hypoxia. HEENT exam unremarkable neck nontender no lymphadenopathy. Lungs clear to auscultation bilaterally. Heart regular rate and rhythm no murmur rate about 74. Abdomen soft and nontender. Normal bowel sounds no peritoneal signs. Moving all 4 extremities. Neurovascular intact. Calves without tenderness or edema. Neurologically awake alert with no focal motor deficits. Test Results: Patient is a normal exam with palpitations per history. Test results chest x-ray normal cardiac silhouette and mediastinum read by myself. And the radiologist. EKG sinus rhythm rate 79 with no signs of AR or ischemia. No dysrhythmia. CBC normal. Chemistries normal glucose 179 normal creatinine and gap. Troponin normal. Emergency Department Course and Treatment: Repeat exam patient is doing well at 1550 10 be discharged home. She has had no signs of A. fib the entire time in the ER. Treatment Plan: Discharged home from the Dr. Puentes of cardiology. Disposition: Discharge Impression: Acute palpitations of uncertain etiology History of prior atrial fibrillation History of hypertension and insulin-dependent diabetes History of DVT on Xarelto This note was generated with [employer] dictation software. It may contain incorrect words, spelling, and punctuation that were not noted in review of the chart prior to signing ED Disposition - Plan for ED Patient: Chief Complaint: Palpitations Referrals: Luanne Aquino MD [Primary Care Provider] -
--- NOTE | 2017-07-31 15:55 | ED.DEP ---
ED Disposition - Plan for ED Patient: Disposition: Home or Assisted Living Chief Complaint: Palpitations Instructions: ED Palpitations Referrals: Casa Puentes MD [STAFF PHYSICIAN] - As soon as possible Additional Instructions: Call and follow-up with either Dr. Puentes, Dr. Gunderson or Dr. So. Your labs, chest x-ray and EKG in the ER today were all normal.
[2017-07-31 16:14] VITALS: BP 156/74; PULSE 74; RESP 16; O2SAT 97
--- NOTE | 2017-07-31 16:14 | NURSING ---
NO LW OR POA
== END 2017-07-31 16:15 | disposition home or self-care (01) ==
PROVIDERS: Emergency Provider Emergency Medicine; Family Provider Internal Medicine; PCP Internal Medicine
DX: R00.2 Palpitations (principal); I48.91 Unspecified atrial fibrillation; I10 Essential (primary) hypertension; E11.9 Type 2 diabetes mellitus without complications; Z79.4 Long term (current) use of insulin; Z86.718 Personal history of other venous thrombosis and embolism; Z79.01 Long term (current) use of anticoagulants
CPT/HCPCS: 71045; 80048; 84484; 85025; 93005; 99284; A4216

== ENCOUNTER → 2017-08-13 10:55 | Outpatient (CLI) | payer MEDICARE, SELFPAY ==
--- NOTE | 2017-08-13 10:57 | VDLE_ITS ---
Reason For Study: F/U DVT RLE RIGHT LEFT CFV is compressible, spontaneous, phasic, CFV is compressible, spontaneous, phasic, competent and demonstrates normal competent, and demonstrates normal augmentation. augmentation. FV is compressible, spontaneous, phasic, competent and demonstrates normal augmentation. POP V is compressible, spontaneous, phasic, competent and demonstrates normal augmentation. T/P Trunk is compressible. PTV is compressible. RT PerV is compressible. GSV not assessed. Procedure Exam performed in department. A preliminary report was called and/or faxed to Dr. Walker. Interpretation Summary Deep veins of the right lower extremity are patent and compressible segmentally. There is no evidence of right lower extremity deep vein thrombosis. Valvular competence appears intact within the proximal deep venous system on the right . The right great saphenous vein was not assessed. Ordering Physician: Mendy Walker Referring Physician: Mendy Walker [facility] Performed By: Reina Ferrera RVT
== END ==
PROVIDERS: Family Provider Internal Medicine; PCP Internal Medicine; Visit Provider Orthopaedic Surgery
DX: I82.401 Acute embolism and thrombosis of unspecified deep veins of right lower extremity (principal)
CPT/HCPCS: 93971

== ENCOUNTER 2017-08-15 13:00 | Outpatient (RCR) | payer MEDICARE, SELFPAY ==
--- NOTE | 2017-08-05 08:52 | HP.PTEVAL_ITS ---
Patient's Visit Information LAURA MARTIN is a 76 year old F referred to Physical Therapy by Mendy Walker DO with a diagnosis of R medial meniscal repair. Date of Evaluation: 07/16/17 Physical Therapist: José Manuel Curtis - Visit Plan Frequency: 2x /Week Duration: 4-6 Weeks Plan: See's PT next session. Cont w/ POC anf try ex next session if pt is able to. - Subjective Subjective: Pt. is here today for her initial evaluation with diagnosis of R knee medial meniscal repair on 05/15/17. Pt. reports having increased pain for several months, but is now better until she fell a few weeks ago. Pt. did have a set back as well having a bowel obstruction and having to be on TCU at [facility] for several weeks. Pt. fell recently onto knee and her knee has been bothering her since. Pt. is also having some L sided low back pain. Pt. denies N/T. Pt. reports pain with walking, but not consistently. Pt. reports no sudden weakness , but does feel generally weak. Pt. has increased symptoms with stair negotiation and getting up from floor. Pt. is hopeful to reduce symptoms to get back to all recreational activities without limtiations. - Pain R knee Pain Intensity (Out of 10): 2 Pain Intensity Range: 0, 4 L side of lumbar spine Pain Intensity (Out of 10): 4 Pain Intensity Range: 1, 6 - Objective POSTURE: Pt. has slight increase in L lateral wt. shift, but trunk lean to R side. Pt. has close TKE in stance. PALAPTION: Pt. has slight pain at medial joint line. Marked edema throughout knee, non pitting. Pt. has no pain at quads or patellar tendon. NEUROLOGICAL: PT. has normal sensation throughout bilateral LEs. Pt. has 2+ DTR bilateral achilles and patellar tendons. Pt. is able to rise on heels and toes without issues. ROM: R knee 0-3-120deg. INcreased pain at end range ext and flexion. Normal hip ROM. MMT: R ankle- 5/5 throughout; knee- ext 4/5, flexion 4/5; hip- flexion 4/5, abd 4/5, ext 4+/5. Core strength- poor. GAIT: Pt. ambulates with trunk lean to R side, decrease R stance phase, lacks TKE during stance on RLE. Pt. reports 1/10 pain in R knee with ambulation. STAIRS: Pt. negotiates with step to pattern with use of BHR. - Goals Goal 1:: Pt. to be I with HEP. Goal Time Frame: 4-6 Weeks Goal 2:: Pt. to have increased R knee ROM to 0-0-125deg without increase in symptoms. Goal Time Frame: 4-6 Weeks Goal 3:: Pt. to have increased RLE strength by 1/2 grade of all effected musculature to increase ability to complete all functional mobility. Goal Time Frame: 4-6 Weeks Goal 4:: Pt. to ambulate unlimited distances with 0-1/10 pain in R knee allowing for increased quality of life. Goal Time Frame: 4-6 Weeks Goal 5:: Pt. to negotiates 1 flight of steps with reciprocal pattern with 1 HR with 0-1/10 pain in R knee. Goal Time Frame: 4-6 Weeks Goal 6:: Pt. to sleep throughout the night with 0-1/10 pain in R knee. Goal Time Frame: 2-4 Weeks - Rehabilitation Potential Physical Therapy Diagnosis: Pt. has signs and symptoms consistent with R medial meniscal repair with subsequent hypomobility, RLE weakness, increased pain and decreased functional mobility. Pt. would benefit from PT to address above limitations progressing back to all functional mobility without limitations. Rehabilitation Potential: Good - Anticipated Interventions Patient/Client Instruction: Educate patient on: Condition, Plan of Care, Risk Factors, Benefits of Fitness Program For the Purpose of:: To foster healthy habits, To improve decision making, To facilitate caregiver knowledge, To improve self management, To prevent re-injury , To improve ability to perform tasks related to life management, To improve tolerance to ADL's Therapeutic Exercise to Include: Strength training, Power training, Endurance training, Body mechanics, Postural training, Flexibilty training, Gait and locomotor training, Passive ROM, Active ROM, Dynamic Lumbar Stabilization For the Purpose of:: To decrease pain, To increase ROM, To improve nutrient delivery to tissue, To increase oxygenation perfusion, To improve muscle performance and motor function, To improve ability to perform ADL's, To increase tolerance to activity/condition/position, To improve gait and locomotor functions, To improve health of tissue, To decrease soft tissue restriction, To increase flexibility/ROM, To improve endurance, To improve balance Manual Therapy Techniques to Include: Mobilization, Passive ROM, Soft tissue mobilization For the Purpose of:: To decrease pain, To decrease swelling/inflammation, To increase ROM, To improve nutrient delivery to tissue IF ES: Yes Cryotherapy (ice pack, ice massage): Yes Thermo therapy (hot pack): Yes For the Purpose of:: To decrease pain, To decrease swelling/inflammation, To increase ROM Thank you for the opportunity to evaluate your patient. For Medicare and Medicare HMO plans, please review the plan of care and approve it. It will need to be FAXED BACK to us at [phone] for Medicare purposes. Please let me know if there are questions or concerns regarding this plan of care. Physician Signature: Date:
--- NOTE | 2017-11-26 10:55 | HP.PTDCNRP_ITS ---
HP - Discharge Summary (1) - Patient Information LAURA MARTIN was seen in my office for initial evaluation on 07/16/17. The following Plan of Care was established for this patient: Initial Frequency: 2x /Week Initial Duration: 4-6 Weeks - Anticipated Interventions Patient/Client Instruction: Educate patient on: Condition, Plan of Care, Risk Factors, Benefits of Fitness Program For the Purpose of:: To foster healthy habits, To improve decision making, To facilitate caregiver knowledge, To improve self management, To prevent re- injury, To improve ability to perform tasks related to life management, To improve tolerance to ADL's Therapeutic Exercise to Include: Strength training, Power training, Endurance training, Body mechanics, Postural training, Flexibilty training, Gait and loco motor training, Passive ROM, Active ROM, Dynamic Lumbar Stabilization For the Purpose of:: To decrease pain, To increase ROM, To improve nutrient delivery to tissue, To increase oxygenation perfusion, To improve muscle performance and motor function, To improve ability to perform ADL's, To increase tolerance to activity/condition/position, To improve gait and locomotor fun ctions, To improve health of tissue, To decrease soft tissue restriction, To increase flexibility/ROM, To improve endurance, To improve balance Manual Therapy Techniques to Include: Mobilization, Passive ROM, Soft tissue mobilization For the Purpose of:: To decrease pain, To decrease swelling/inflammation, To increase ROM, To improve nutrient delivery to tissue IF ES: Yes Cryotherapy (ice pack, ice massage): Yes Thermo therapy (hot pack): Yes For the Purpose of:: To decrease pain, To decrease swelling/inflammation, To increase ROM This patient was last seen in our office 08/15/17. Pertinent comments regarding their Physical therapy will appear below: Pt. was seen for her PT after medial meniscal repair. Pt. was having small gains with PT and was to go back and follow up with ortho. Pt. has not been back to PT since. She has not been seen in ~4 months and will be DC from PT at this point in time. At this point I will be discontinuing this patient from physical therapy. I would be happy to see this patient again in the future if found appropriate by the physician. Thank you! José Manuel Curtis
== END 2017-08-15 19:00 | disposition home or self-care (01) ==
LOC: PT 13:00
PROVIDERS: Family Provider Internal Medicine; PCP Internal Medicine; Visit Provider Orthopaedic Surgery
DX: Z98.890 Other specified postprocedural states (principal)
CPT/HCPCS: 97014; 97110; 97162; 97530; G0283

== ENCOUNTER → 2017-08-19 06:45 | Outpatient (CLI) | payer MEDICARE, SELFPAY ==
--- NOTE | 2017-08-19 06:50 | ECHOCS_ITS ---
Reason For Study: AFib/Flutter Procedure This was a 2D Doppler, Color Flow transthoracic echocardiogram. Exam performed in department. Left Ventricle Normal LV size. Left ventricular systolic function is normal. The estimated ejection fraction is 55 %. No regional wall motion abnormalities noted. Right Ventricle Normal RV size. Normal systolic function. Atria Normal left atrium. Normal right atrium. Intact atrial septum. Mitral Valve Normal mitral valve. Tricuspid Valve Normal tricuspid valve. Mild (1+) tricuspid valve insufficiency. Pulmonary artery systolic pressure is 27 mmHg. Aortic Valve The aortic valve is not well visualized. Pulmonic Valve The pulmonic valve is not well visualized. Great Vessels Normal aortic root. The pulmonary artery is normal size. Normal inferior vena cava. Pericardium/Pleural No pericardial effusion. Medication Diluted definity 2ml given slow IV push to enhance endocardial definition. Performed a rapid injection of agitated mix of 9 cc saline and 1cc air to assess for atrial septal defect. MMode/2D Measurements & Calculations LVIDd: 4.5 cm IVSd: 1.3 cm Ao root diam: 3.5 cm LVIDs: 2.6 cm LVPWd: 1.1 cm LA dimension: 3.9 cm FS: 41.5 % LAV(MOD-bp): 55.7 ml LVAd ap4: 26.1 cm2 SV(MOD-sp4): 40.9 ml LAV(MOD-bp) Indexed: 27.1 ml/m2 EDV(MOD-sp4): 75.5 ml LAV(MOD-sp2): 56.2 ml EDV(sp4-el): 77.7 ml LAV(MOD-sp4): 53.4 ml LVAs ap4: 15.9 cm2 ESV(MOD-sp4): 34.7 ml ESV(sp4-el): 34.4 ml EF(MOD-sp4): 54.1 % EF(sp4-el): 55.7 % SV(sp4-el): 43.2 ml LA A4 area: 18.4 cm2 RA A4 area: 16.1 cm2 Time Measurements MV dec time: 0.23 sec Doppler Measurements & Calculations MV E max robson: 80.3 cm/sec Lat Peak E' Robson: 7.3 cm/sec Med Peak E' Robson: 7.6 cm/sec MV A max robson: 108.4 cm/sec E/E' lat: 11.0 E/E' med: 10.6 MV E/A: 0.74 MV V2 max: 122.3 cm/sec MV P1/2t max robson: 90.5 cm/sec Ao V2 max: 139.8 cm/sec MV max P.0 mmHg MV P1/2t: 81.2 msec Ao max P.8 mmHg MV V2 mean: 61.0 cm/sec MV dec slope: 326.5 cm/sec2 Ao V2 mean: 83.9 cm/sec MV mean P.8 mmHg MVA(P1/2t): 2.7 cm2 Ao mean P.3 mmHg MV V2 VTI: 36.6 cm Ao V2 VTI: 27.1 cm LV V1 max: 119.0 cm/sec TR max robson: 248.7 cm/sec LV V1 max P.7 mmHg TR max P.7 mmHg LV V1 mean P.0 mmHg LV V1 mean: 64.0 cm/sec LV V1 VTI: 22.9 cm Interpretation Summary Normal LV size. Left ventricular systolic function is normal. The estimated ejection fraction is 55 %. Intact atrial septum Contrast injection was performed. Ordering Physician: Casa Puentes Referring Physician: Casa Puentes [facility] Performed By: Josse Turcios RCS
--- NOTE | 2017-08-19 10:28 | STRESSREP ---
Stress Test Report Pharmacologic myocardial perfusion stress test. 76-year-old lady with a history of paroxysmal atrial fibrillation. Medications Cardizem Zofran Xarelto Ambien. Stress protocol: Resting EKG demonstrates normal sinus rhythm with rate of 70 bpm resting blood pressure 7 and 30/84 mmHg. 0.4 mg regadenoson was infused per usual protocol followed by Intravenous and flush injection continuous EKG monitoring was performed maximum heart rate attained was 107 bpm to 73% maximum predicted heart rate maximum workload attained was 1 metabolic equivalent. The patient maintained sinus rhythm throughout the recording. The resting blood pressure is 130/82 with final blood pressure 120/70 mmHg. Myocardial perfusion protocol. 14.3 mCi of technetium 99m sestamibi was injected at rest. 0.4 mg of regadenoson was infused per usual protocol peak infusion 44.6 mCi of technetium 99m sestamibi was injected stress images were obtained stress and rest images were reconstructed and compared in the short axis vertical and horizontal axes gated images were also obtained. Perfusion SPECT analysis: Review of the stress images demonstrate normal uptake of tracer noted in all areas of the myocardium. The resting images similarly demonstrate normal uptake of tracer noted in all areas of the myocardium. No areas of reversibility are noted suggest ischemia and no previous infarct is noted. Gated SPECT analysis: The gated ejection fraction is noted to be 73%. Conclusion: Normal pharmacologic myocardial perfusion stress test. No evidence of atrial fibrillation noted. Preserved ejection fraction.
== END ==
PROVIDERS: Family Provider Internal Medicine; PCP Internal Medicine; Visit Provider Internal Medicine Cardiovascular Disease
DX: I48.0 Paroxysmal atrial fibrillation (principal); R06.02 Shortness of breath; I48.92 Unspecified atrial flutter; I07.1 Rheumatic tricuspid insufficiency
CPT/HCPCS: 78452; 93017; 93306; A9500; Q9957; A4216; C8929; J2785

== ENCOUNTER → 2017-08-29 12:55 | Outpatient (CLI) | payer MEDICARE, SELFPAY | PROVIDERS: Family Provider Internal Medicine; PCP Internal Medicine; Visit Provider Internal Medicine Cardiovascular Disease | DX: I48.0 Paroxysmal atrial fibrillation (principal) | CPT/HCPCS: 93225; 93226 ==

== ENCOUNTER → 2017-09-26 13:33 | Outpatient (CLI) | payer MEDICARE, SELFPAY ==
--- NOTE | 2017-09-26 13:35 | RAD_ITS ---
STUDY: X-RAY - RIGHT KNEE REASON FOR EXAM: Female, 76 years old. Knee pain. TECHNIQUE: 4 view(s) of the knee. COMPARISON: May 28, 2017 FINDINGS: There is generalized osteopenia. There is an osteochondral defect of the medial femoral condyle with substantial sclerosis surrounding it. Normal visualized proximal tibia and fibula. Normal proximal tibiofibular articulation. There is moderate arthrosis of the medial compartment. There is mild arthrosis of the lateral and patellofemoral compartments. There is a superior patellar spur. The soft tissue structures are unremarkable. RAD/Knee 4 or More Views IMPRESSION: Osteopenia with osteochondral defect of the medial femoral condyle. Osteoarthritic changes as described. Electronically Signed: Hayder Castellanos MD at 14:58 EDT , Service support ,
== END ==
PROVIDERS: Family Provider Internal Medicine; PCP Internal Medicine; Visit Provider Orthopaedic Surgery
DX: M17.11 Unilateral primary osteoarthritis, right knee (principal)
CPT/HCPCS: 73564

== ENCOUNTER → 2017-11-04 12:15 | Outpatient (CLI) | payer MEDICARE, SELFPAY ==
--- NOTE | 2017-11-04 12:20 | RAD_ITS ---
STUDY: X-RAY - LUMBAR SPINE REASON FOR EXAM: Female, 76 years old. Low back pain TECHNIQUE: 3 view(s) of the lumbar spine were obtained. COMPARISON: None FINDINGS: Normal lumbar lordosis. Gentle rightward scoliosis curvature. There is a normal alignment of the vertebrae. There is multilevel endplate spondylosis of the lumbar vertebrae. There is multi-level degenerative disc disease with multi-level disc space narrowing. There is no demonstrated fracture. The soft tissue structures are unremarkable. RAD/Lumbar Spine 2 or 3 Views IMPRESSION: Degenerative changes of the spine, as detailed above. Electronically Signed: Reji Darby DO at 13:33 EDT Tel , Service support ,
[2017-11-04 17:47] LABS: Anion Gap 8 (5-15); BUN 26 mg/dL (7-18); Calcium,Total 10.6 mg/dL (8.5-10.1); Chloride 102 mmol/L (98-107); Creatinine, Serum 0.96 mg/dL (0.55-1.02); EST Glomerular Filtration Rate 60 mL/min (>60); Est Glom Filt Rate - Afr Amer 73 mL/min (>60); Glucose 195 mg/dL (74-106); Magnesium 2.2 mg/dL (1.6-2.6); Potassium 3.9 mmol/L (3.5-5.1); Sodium Level 137 mmol/L (136-145); Thyroid Stim Hormone (TSH) 1.12 uIU/mL (0.358-3.74)
== END ==
PROVIDERS: Family Provider Internal Medicine; PCP Internal Medicine; Visit Provider Anesthesiology Pain Medicine
DX: I48.0 Paroxysmal atrial fibrillation (principal); M54.9 Dorsalgia, unspecified; E11.9 Type 2 diabetes mellitus without complications
CPT/HCPCS: 36415; 72100; 80048; 83735; 84443

== ENCOUNTER → 2017-11-15 15:57 | Outpatient (CLI) | payer MEDICARE, SELFPAY ==
--- NOTE | 2017-11-15 16:45 | MRI_ITS ---
STUDY: MRI LUMBAR SPINE WITHOUT CONTRAST REASON FOR EXAM: Female, 76 years old. Low back pain TECHNIQUE: Standardized fat and water weighted pulse sequences were obtained in the sagittal and axial planes. COMPARISON: None FINDINGS: There is normal alignment and curvature of the lumbosacral spine with no acute fractures or dislocations and no abnormal infiltrative processes. The disc spaces are all narrowed except at L3-4 and L4-5. The conus medullaris terminates at the L1-L2 level. T12-L1: Normal endplates. Normal disc height, hydration and morphology. Normal bilateral facet joints. Normal central canal and bilateral lateral recesses. Normal bilateral intervertebral neural foramina. L1-2: Disc space narrowing with small marginal osteophytes. No focal disc protrusion or extrusion. Mild degenerative changes of the facet joint. L2-3: Disc space narrowing with small spurs from the vertebral body endplates. No focal disc protrusion or extrusion. There are minimal degenerative changes of the facet joints. L3-4: Normal endplates. Normal disc height, hydration and morphology. Degenerative changes of the facet joints with moderate central canal stenosis or occlusive hypertrophy of the ligamentum flavum. No focal disc protrusion or extrusion.. Normal central canal and bilateral lateral recesses. Normal bilateral intervertebral neural foramina. L4-5: Mild concentric disc bulging. No focal disc protrusion or extrusion L5-S1: Disc space narrowing with small marginal osteophytes. No focal disc protrusion or extrusion. The facet joints are normal MRI/Spine Lumbar (Routine) IMPRESSION: Multilevel intervertebral osteochondrosis. No focal disc protrusion or extrusion. Electronically Signed: Krish Waddell MD at 4:19 EDT Tel , Service support ,
== END ==
PROVIDERS: Family Provider Internal Medicine; PCP Internal Medicine; Referring Provider Anesthesiology Pain Medicine; Visit Provider Anesthesiology Pain Medicine
DX: M54.9 Dorsalgia, unspecified (principal)
CPT/HCPCS: 72148

== ENCOUNTER → 2018-03-03 14:37 | Outpatient (CLI) | payer MEDICARE, SELFPAY ==
[2018-02-28 10:22] VITALS: BMI 43.4
[2018-03-03 15:44] LABS: Absolute Neutrophil Count 5.4 X10^3/uL (2.0-7.7); Basophil# 0.03 X10^3/uL; Basophil% 0.3 % (0-1); Eosinophil# 0.06 X10^3/uL; Eosinophils% 0.7 % (0-5); Hemoglobin 15.4 g/dl (12.0-15.0); Mean Corp Hgb Conc 32.1 g/gl (32-36); Mean Corpuscular Volume 93.6 fL (81-99); Monocyte% 5.8 % (0-10); Neutrophil # 5.42 X10^3/uL (2.7-7.7); Neutrophil % 62.6 % (47-70); Platelet Count 147 K/mm3 (150-450); RBC Distribution Width CV 13.7 % (11.6-14.6); RBC Distribution Width SD 46.9 fl (35.1-43.9); Red Blood Count 5.13 M/mm3 (4.2-5.4); White Blood Count 8.7 K/mm3 (4.4-11.0)
[2018-03-03 15:51] LABS: POSITIVE COUNT NO; POSITIVE DIFFERENTIAL NO; POSITIVE MORPHOLOGY NO
[2018-03-03 16:20] LABS: Anion Gap 11 (5-15); BUN 17 mg/dL (7-18); BUN/Creat Ratio 21.5 RATIO (10-20); Calcium,Total 10.1 mg/dL (8.5-10.1); Chloride 103 mmol/L (98-107); Creatinine, Serum 0.79 mg/dL (0.55-1.02); EST Glomerular Filtration Rate 75 mL/min (>60); Est Glom Filt Rate - Afr Amer 91 mL/min (>60); Glucose 188 mg/dL (74-106); Potassium 4.3 mmol/L (3.5-5.1); Sodium Level 137 mmol/L (136-145)
[2018-03-03 17:29] LABS: Hemoglobin A1c 8.2 % (4.2-6.3)
--- OUTSIDE RECORDS SUMMARY | 2018-05-10 06:05 | XMS RPT_ITS ---
:1940 Author Organization OHIP Support Name Relationship Address Phone PEGGY CAMILO Unavailable [address] + [place] [address] R Unavailable Unavailable Unavailable PEGGY CAMILO Unavailable [address] + [place] [address] R Unavailable Unavailable Unavailable PEGGY CAMILO Unavailable [address] + [place] [address] R Unavailable Unavailable Unavailable PEGGY CAMILO Unavailable [address] + [place] [address] R Unavailable Unavailable Unavailable PEGGY CAMILO Unavailable [address] + [place] [address] R Unavailable Unavailable Unavailable CAMILOPEGGY Unavailable [address] + [place] [address] R Unavailable Unavailable Unavailable EMMY SALVADOR (POA) Unavailable [address] + [facility] [place] [address] PEGGY CAMILO Unavailable [address] + [place] [address] R Unavailable Unavailable Unavailable EMMY SALVADOR (POA) Unavailable [address] + [facility] [place] [address] CAMILOPEGGY LAU Unavailable [address] + [place] [address] R Unavailable Unavailable Unavailable EMMY SALVADOR (POA) Unavailable [address] + [place] [address] PEGGY CAMILO Unavailable [address] + [place] [address] R Unavailable Unavailable Unavailable EMMY SALVADOR (POA) Unavailable [address] + [place] [address] PEGGY CAMILO Unavailable [address] + [place] [address] R Unavailable Unavailable Unavailable EMMY SALVADOR (POA) Unavailable [address] + [place] [address] PEGGY CAMILO Unavailable [address] + [place] [address] R Unavailable Unavailable Unavailable EMMY SALVADOR (POA) Unavailable [facility] [address] + [place] [address] PEGGY CAMILO Unavailable [address] + [place] [address] R Unavailable Unavailable Unavailable EMMY SALVADOR (POA) Unavailable [address] + [place] [address] PEGGY CAMILO Unavailable [address] + [place] [address] R Unavailable Unavailable Unavailable EMMY SALVADOR (POA) Unavailable [facility] [address] + [place] [address] PEGGY CAMILO Unavailable [address] + [place] [address] R Unavailable Unavailable Unavailable EMMY SALVADOR (POA) Unavailable [facility] [address] + [place] [address] PEGGY CAMILO Unavailable [address] + [place] [address] R Unavailable Unavailable Unavailable EMMY SALVADOR (POA) Unavailable [facility] [address] + [place] [address] PEGGY CAMILO Unavailable [address] + [place] [address] R Unavailable Unavailable Unavailable EMMY SALVADOR (POA) Unavailable [facility] [address] + [place] [address] PEGGY CAMILO Unavailable [address] + [place] [address] R Unavailable Unavailable Unavailable EMMY SALVADOR (POA) Unavailable [facility] [address] + [place] [address] PEGGY CAMILO Unavailable [address] + [place] [address] R Unavailable Unavailable Unavailable EMMY SALVADOR (POA) Unavailable [facility] [address] + [place] [address] PEGGY CAMILO Unavailable [address] + [place] [address] R Unavailable Unavailable Unavailable EMMY SALVADOR (POA) Unavailable [facility] [address] + [place] [address] PEGGY CAMILO Unavailable [address] + [place] [address] R Unavailable Unavailable Unavailable EMMY SALVAODR (POA) Unavailable [facility] [address] + [place] [address] PEGGY CAMILO Unavailable [address] + [place] [address] R Unavailable Unavailable Unavailable EMMY SALVADOR (POA) Unavailable [facility] [address] + [facility] [place] [address] PEGGY CAMILO Unavailable [address] + [place] [address] R Unavailable Unavailable Unavailable EMMY SALVADOR (POA) Unavailable [facility] [address] + [facility] [place] [address] PEGGY CAMILO Unavailable [address] + [place] [address] R Unavailable Unavailable Unavailable EMMY SALVADOR (POA) Unavailable [facility] [address] + [place] [address] PEGGY CAMILO Unavailable [address] + [place] [address] R Unavailable Unavailable Unavailable EMMY SALVADOR (POA) Unavailable [facility] [address] + [place] [address] PEGGY CAMILO Unavailable [address] + [place] [address] R Unavailable Unavailable Unavailable EMMY SALVADOR (POA) Unavailable [facility] [address] + [place] [address] PEGGY CAMILO Unavailable [address] [phone]~330-2 [place] [address] R Unavailable Unavailable Unavailable EMMY SALVADOR Unavailable [facility] [address] + [facility] [address] PEGGY CAMILO Unavailable [address] [phone]~330-2 [place] [address] R Unavailable Unavailable Unavailable EMMY SALVADOR (POA) Unavailable [facility] [address] + [place] [address] PEGGY CAMILO Unavailable [address] [phone]~330-2 [place] [address] R Unavailable Unavailable Unavailable EMMY SALVADOR (POA) Unavailable [facility] [address] + [place] [address] PEGGY CAMILO Unavailable [address] [phone]~330-2 [place] [address] R Unavailable Unavailable Unavailable EMMY SALVADOR (POA) Unavailable [facility] [address] + [place] [address] PEGGY CAMILO Unavailable [address] [phone]~330-2 [place] [address] R Unavailable Unavailable Unavailable EMMY SALVADOR (POA) Unavailable [facility] [address] + [facility] [address] PEGGY CAMILO Unavailable [address] [phone]~330-2 [place] [address] R Unavailable Unavailable Unavailable EMMY SALVADOR (POA) Unavailable [facility] [address] + [facility] [address] PEGGY CAMILO Unavailable [address] [phone]~330-2 [place] [address] R Unavailable Unavailable Unavailable EMMY SALVADOR (POA) Unavailable [facility] [address] + [place] [address] PEGGY CAMILO Unavailable [address] [phone]~330-2 [place] [address] R Unavailable Unavailable Unavailable EMMY SALVADOR Unavailable [facility] [address] + [facility] [address] PEGGY CAMILO Unavailable [address] [phone]~330-2 [place] [address] R Unavailable Unavailable Unavailable EMMY SALVADOR Unavailable [facility] [address] + [place] [address] PEGGY CAMILO Unavailable [address] [phone]~330-2 [place] [address] R Unavailable Unavailable Unavailable EMMY SALVADOR Unavailable [facility] [address] + [facility] [address] PEGGY CAMILO Unavailable [address] [phone]~330-2 [place] [address] R Unavailable Unavailable Unavailable EMMY SALVADOR Unavailable [facility] [address] + [facility] [address] PEGGY CAMILO Unavailable [address] [phone]~330-2 [place] [address] R Unavailable Unavailable Unavailable EMMY SALVADOR Unavailable [facility] [address] + [place] [address] PEGGY CAMILO Unavailable [address] [phone]~330-2 [place] [address] R Unavailable Unavailable Unavailable EMMY SALVADOR Unavailable [facility] [address] + [facility] [address] PEGGY CAMILO Unavailable [address] [phone]~330-2 [place] [address] R Unavailable Unavailable Unavailable EMMY SALVADOR Unavailable [facility] [address] + [facility] [address] PEGGY CAMILO Unavailable [address] [phone]~330-2 [place] [address] R Unavailable Unavailable Unavailable EMMY SALVADOR Unavailable [facility] [address] + [place] [address] PEGGY CAMILO Unavailable [address] [phone]~330-2 [place] [address] R Unavailable Unavailable Unavailable EMMY SALVADOR Unavailable [facility] [address] + [place] [address] PEGGY CAMILO Unavailable [address] [phone]~330-2 [place] [address] R Unavailable Unavailable Unavailable EMMY SALVADOR Unavailable [facility] [address] + [facility] [address] PEGGY CAMILO Unavailable [address] [phone]~330-2 [place] [address] R Unavailable Unavailable Unavailable EMMY SALVADOR Unavailable [facility] [address] + [place] [address] PEGGY CAMILO Unavailable [address] [phone]~330-2 [place] [address] R Unavailable Unavailable Unavailable EMMY SALVADOR Unavailable [facility] [address] + [place] [address] PEGGY CAMILO Unavailable [address] [phone]~330-2 [place] [address] R Unavailable Unavailable Unavailable EMMY SALVADOR Unavailable [facility] [address] + [place] [address] PEGGY CAMILO Unavailable [address] [phone]~330-2 [place] [address] R Unavailable Unavailable Unavailable EMMY SALVADOR Unavailable [facility] [address] + [place] [address] PEGGY CAMILO Unavailable [address] [phone]~330-2 [place] [address] R Unavailable Unavailable Unavailable EMMY SALVADOR Unavailable [facility] [address] + [place] [address] PEGGY CAMILO Unavailable [address] [phone]~330-2 [place] [address] R Unavailable Unavailable Unavailable EMMY SALVADOR Unavailable [facility] [address] + [place] [address] PEGGY CAMILO Unavailable [address] [phone]~330-2 [place] [address] R Unavailable Unavailable Unavailable EMMY SALVADOR Unavailable [facility] [address] + [facility] [place] [address] PEGGY CAMILO Unavailable [address] [phone]~330-2 [place] [address] R Unavailable Unavailable Unavailable MADELEINE, EMMY Unavailable [address] + [facility] [place] [address] PEGGY CAMILO Unavailable [address] [phone]~330-2 [place] [address] R Unavailable Unavailable Unavailable MADELEINE, EMMY Unavailable [address] + [facility] [place] [address] PEGGY CAMILO Unavailable [address] [phone]~330-2 [place] [address] R Unavailable Unavailable Unavailable MADELEINE, EMMY Unavailable [address] + [facility] [place] [address] PEGGY CAMILO Unavailable [address] [phone]~330-2 [place] [address] R Unavailable Unavailable Unavailable MADELEINE, EMMY Unavailable [address] + [facility] [place] [address] PEGGY CAMILO Unavailable [address] [phone]~330-2 [place] [address] R Unavailable Unavailable Unavailable Care Team Providers Name Role Phone JEAN PAUL, MOO D Attending Unavailable TALAMPAS, MOO D Referring Unavailable KINGSLEY SANTOS (QUALITY ASSURANCE ASSOCIATE) Attending Unavailable MELODY, RAVEN (SUSTAINABLE AGRICULTURE SPECIALIST) Attending Unavailable TALAMPAS, MOO D Attending Unavailable TALAMPAS, MOO D Attending Unavailable TALAMPAS, MOO D Referring Unavailable TALAMPAS, MOO D Attending Unavailable TALAMPAS, MOO D Referring Unavailable TALAMPAS, MOO D Attending Unavailable TALAMPAS, MOO D Referring Unavailable TALAMPAS, MOO D Referring Unavailable TALAMPAS, MOO D Referring Unavailable TALAMPAS, MOO D Attending Unavailable TALAMPAS, MOO D Referring Unavailable TALAMPAS, MOO D Referring Unavailable TALAMPAS, MOO D Attending Unavailable TALAMPAS, MOO D Referring Unavailable TALAMPAS, MOO D Attending Unavailable Ayaan Elaine Admitting Unavailable Ayaan Elaine Attending Unavailable Ayaan Elaine Referring Unavailable Talampas, Moo Primary Care Unavailable Brittany Mena Attending Unavailable Talampas, Moo Primary Care Unavailable Donald Andersen Attending Unavailable Talampas, Moo Primary Care Unavailable Geri Alvarez Attending Unavailable Geri Alvarez Attending Unavailable Talampas, Moo Primary Care Unavailable Casa Puentes Attending Unavailable Talampas, Moo Referring Unavailable Chicorelli, Mendy Attending Unavailable Talampas, Moo Referring Unavailable Talampas, Moo Primary Care Unavailable Chicorelli, Mendy Attending Unavailable Chicorelli, Mendy Referring Unavailable Primay Care Physicia, No Primary Care Unavailable Chicorelli, Mendy Attending Unavailable Chicorelli, Mendy Referring Unavailable Primay Care Physicia, No Primary Care Unavailable Chicorelli, Mendy Attending Unavailable Primay Care Physicia, No Referring Unavailable Primay Care Physicia, No Primary Care Unavailable Chicorelli, Mendy Attending Unavailable Chicorelli, Mendy Referring Unavailable Primay Care Physicia, No Primary Care Unavailable Chicorelli, Mendy Attending Unavailable Chicorelli, Mendy Referring Unavailable Talampas, Moo Primary Care Unavailable Chicorelkenny, Mendy Attending Unavailable Primay Care Physicia, No Referring Unavailable Primay Care Physicia, No Primary Care Unavailable Chicorelli, Mendy Attending Unavailable Talampas, Moo Primary Care Unavailable Chicorelli, Mendy Attending Unavailable Primay Care Physicia, No Referring Unavailable Talampas, Moo Primary Care Unavailable Talampas, Moo Primary Care Unavailable Fareed, Ozzie Admitting Unavailable Nathaniel Cuellar Attending Unavailable Fareed, Ozzie Admitting Unavailable Fareed, Ozzie Attending Unavailable Talampas, Moo Primary Care Unavailable Fareed, Ozzie Consulting Unavailable Fareed, Ozzie Admitting Unavailable Talampas, Moo Primary Care Unavailable Margarito Tirado Consulting Unavailable Margarito Tirado Attending Unavailable Fareed, Ozzie Admitting Unavailable Talampas, Moo Primary Care Unavailable Margarito Tirado Consulting Unavailable Margarito Tirado Attending Unavailable Fareed, Ozzie Admitting Unavailable Margarito Tirado Attending Unavailable Talampas, Moo Primary Care Unavailable Margarito Tirado Consulting Unavailable Fareed, Ozzie Admitting Unavailable SINDI Hidalgo Attending Unavailable Talampas, Moo Primary Care Unavailable Nathaniel Cuellar Consulting Unavailable Fareed, Ozzie Admitting Unavailable Jopperi, Nathaniel Attending Unavailable Talampas, Moo Primary Care Unavailable Jopperi, Nathaniel Consulting Unavailable Shiraz, Saravanan Chi Admitting Unavailable Shiraz, Saravanan Chi Attending Unavailable Shiraz, Saravanan Chi Referring Unavailable Talampas, Moo Primary Care Unavailable Chicorelli, Mendy Attending Unavailable Chicorelli, Mendy Attending Unavailable Talampas, Moo Referring Unavailable Talampas, Moo Primary Care Unavailable Jopperi, Nathaniel Admitting Unavailable Jopperi, Nathaniel Attending Unavailable Stacey, Betito Consulting Unavailable Jopperi, Nathaniel Attending Unavailable Talampas, Moo Primary Care Unavailable Jopperi, Nathaniel Admitting Unavailable Jopperi, Nathaniel Attending Unavailable Talampas, Moo Primary Care Unavailable Stacey, Betito Consulting Unavailable Jopperi, Nathaniel Consulting Unavailable Jopperi, Nathaniel Admitting Unavailable Jopperi, Nathaniel Attending Unavailable Talampas, Moo Primary Care Unavailable Stacey, Betito Consulting Unavailable Jopperi, Nathaniel Consulting Unavailable Jopperi, Nathaniel Admitting Unavailable Jopperi, Nathaniel Attending Unavailable Talampas, Moo Primary Care Unavailable Stacey, Betito Consulting Unavailable Jopperi, Nathaniel Consulting Unavailable Chicorelli, Mendy Attending Unavailable Talampas, Moo Referring Unavailable Talampas, Moo Primary Care Unavailable Maribelorelkenny, Mendy Attending Unavailable Talampas, Moo Primary Care Unavailable Chicorelli, Mendy Referring Unavailable Talampas, Moo Primary Care Unavailable Cade Jacobsen Attending Unavailable Brittany Mena Attending Unavailable Deloris, Casa Attending Unavailable Talampas, Moo Referring Unavailable Talampas, Moo Primary Care Unavailable Chicorelli Mendy Attending Unavailable Chicorelli, Mendy Referring Unavailable Talampas, Moo Primary Care Unavailable Deloris, [place] Attending Unavailable Deloris, [place] Referring Unavailable Talampas, Moo Primary Care Unavailable Chicorelli Mendy Attending Unavailable Talampas, Moo Referring Unavailable Talampas, Moo Primary Care Unavailable Ailin Barrett D.C. Attending Unavailable Talampas, Moo Referring Unavailable Talampas, Moo Primary Care Unavailable Ailin Barrett D.C. Attending Unavailable Ailin Barrett D.C. Referring Unavailable Talampas, Moo Primary Care Unavailable Ailin Barrett D.C. Attending Unavailable Talampas, Moo Referring Unavailable Talampas, Moo Primary Care Unavailable DossiAilin kafuman D.C. Attending Unavailable Talampas, Moo Referring Unavailable DossieAilin D.C. Attending Unavailable Talampas, Moo Referring Unavailable Talampas, Moo Primary Care Unavailable DossieAilin D.C. Attending Unavailable Talampas, Moo Referring Unavailable Talampas, Moo Primary Care Unavailable Deloris, Casa Attending Unavailable Deloris, Casa Referring Unavailable Talampas, Moo Primary Care Unavailable DossieAilin D.C. Attending Unavailable Talampas, Moo Referring Unavailable Talampas, Moo Primary Care Unavailable Riley Garcia Attending Unavailable Talampas, Moo Referring Unavailable Talampas, Moo Primary Care Unavailable [place], [place] Attending Unavailable Chicorelli, Mendy Attending Unavailable Talampas, Moo Referring Unavailable Talampas, Moo Primary Care Unavailable Chicorelli, Mendy Attending Unavailable Chicorelli, Mendy Referring Unavailable Talampas, Moo Primary Care Unavailable [place], [place] Attending Unavailable Basali, Ayman Attending Unavailable Basali, Ayman Referring Unavailable Talampas, Moo Primary Care Unavailable Kari Bryant Attending Unavailable Talampas, Moo Referring Unavailable Talampas, Moo Primary Care Unavailable Basali, Ayman Attending Unavailable Basali, Ayman Referring Unavailable Talampas, Moo Primary Care Unavailable PROBLEMS PROBLEMS DATE TYPE CONDITION / CODE ATTENDING STATUS SOURCE Unknown E11.9 - Type 2 diabetes Ayaan Elaine Active [facility] 9 mellitus without Community complications / Hospital E11.9(ICD-10) Repository Unknown Z01.810 - Encounter for Deloris, [place] Active [place] 9 preprocedural [facility] examination / Repository Z01.810(ICD-10) Unknown I10 - Essential Deloris, Casa Active [place] 9 (primary) hypertension / Community I10(ICD-10) Hospital Repository Unknown I48.0 - Paroxysmal Deloris, Casa Active [place] 9 atrial fibrillation / Community I48.0(ICD-10) Hospital Repository Active Primary NA Active [place] [address] hyperparathyroidism / Clinic Main E21.0(ICD-10) [place] Repository Active Hypothyroidism, NA Active [place] [facility] unspecified / Clinic Main E03.9(ICD-10) [place] Repository Unknown 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 [facility] lumbar region / Hospital M99.03(ICD-10) Repository Unknown M99.05 - Segmental and Dossie, Ailin Active [place] 8 somatic dysfunction of [facility]. [facility] pelvic region / Hospital M99.05(ICD-10) Repository Unknown M99.04 - Segmental and Dossie, Ailin Active [place] 8 somatic dysfunction of [facility].C. [facility] sacral region / Hospital M99.04(ICD-10) Repository Unknown M99.02 - Segmental and Dossie, Ailin Active [place] 8 somatic dysfunction of 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, lumbar Hospital region / M51.36(ICD-10) Repository Unknown R06.02 - Shortness of Del[place]is, [place] Active [place] 8 breath / R06.02(ICD-10) [facility] Repository Unknown Z98.890 - Other Chicorelli, Active [place] 8 specified postprocedural [facility] states / Z98.890(ICD-10) Hospital Repository Active Essential (primary) NA Active [facility] 8 hypertension / Clinic Main I10(ICD-10) [place] Repository Active Vitamin D deficiency, NA Active [facility] 2 unspecified / Clinic Main E55.9(ICD-10) [place] Repository Active Type 2 diabetes mellitus NA Active [place] 8 without complications / Clinic Main E11.9(ICD-10) [place] Repository Active Other fatigue / NA Active [place] 8 R53.83(ICD-10) Clinic Main [place] Repository Unknown E66.01 - Morbid (severe) DelorisCasa chan Active [place] 8 obesity due to excess Community calories / Hospital E66.01(ICD-10) Repository Unknown R53.81 - Other malaise / Shiraz, Saravanan Chi Active [place] 8 R53.81(ICD-10) [facility] Repository Unknown M25.561 - Pain in right Denise, Active [place] 8 knee / M25.561(ICD-10) [facility] Hospital Repository Unknown M79.661 - Pain in right Denise, Active [facility] 8 lower leg / [facility] M79.661(ICD-10) Hospital Repository Unknown G89.18 - Other acute Denise, Active [place] 8 postprocedural pain / [facility] G89.18(ICD-10) Hospital Repository Unknown S83.241D - Other tear of Denise, Active [place] 8 medial meniscus, current [facility] injury, right knee, Hospital subsequent encounter / Repository S83.241D(ICD-10) Unknown S83.241A - Other tear of [place], Active [place] 8 medial meniscus, current [facility] injury, right knee, Hospital initial encounter / Repository S83.241A(ICD-10) Unknown E78.5 - Hyperlipidemia, Denise, Active [place] 8 unspecified / [facility] E78.5(ICD-10) Hospital Repository PROCEDURES PROCEDURES No Procedure Records FoundRESULTS RESULTS CBC W/DIFF, AUTOMATED Collected: 03/03/2018 Status: F Source: [place] 2:41 PM [facility] REPOSITORY TYPE CODE TESTS RESULT OUT OF RANGE REFERENCE UNITS LAB L100.1000 4.4-11.0 K/mm3 Normal WBC 8.7 LAB L100.1200 4.2-5.4 M/mm3 Normal RBC 5.13 LAB L100.1300 12.0-15.0 g/dl High HGB 15.4 LAB L100.1400 37-47 % High HCT 48.0 LAB L100.1500 81-99 fL Normal MCV 93.6 LAB L100.1600 27.0-32.0 pg Normal MCH 30.0 LAB L100.1700 32-36 g/gl Normal MCHC 32.1 LAB L100.1810 11.6-14.6 % Normal RDW CV 13.7 LAB L100.1820 35.1-43.9 fl High RDW SD 46.9 LAB L100.1900 150-450 K/mm3 Low PLT 147 LAB L100.2000 6.2-12.0 fl Normal MPV 11.0 LAB L100.2100 47-70 % Normal NEUT% 62.6 LAB L100.2200 19-41 % Normal LY% 30.0 LAB L100.2300 0-10 % Normal MONO% 5.8 LAB L100.2400 0-5 % Normal EO% 0.7 LAB L100.2500 0-1 % Normal BASO% 0.3 LAB L100.2550 0.0-0.9 % Normal IM GRAN % 0.600 Result Comment: IG% - Immature Granulocytes (promyelocytes, myelocytes and metamyelocytes) > 1% indicates that a LEFT SHIFT is Present. LAB L100.2620 2.0-7.7 X10 3/uL Normal Absolute Neut 5.4 LAB L100.2720 0.83-4.51 X10 3/ul Normal Absolute Lymph 2.60 Performed By: #### L100.0100 #### [facility] [address] [place], [place], [address] BASIC METABOLIC Collected: 03/03/2018 Status: F Source: [place] [facility] ([facility]) 2:41 PM [facility] REPOSITORY TYPE CODE TESTS RESULT OUT OF RANGE REFERENCE UNITS LAB L501.0100 74-106 mg/dL High GLU 188 Result Comment: Fasting Glucose result greater than or equal to 126 mg/dL suggests DIABETES MELLITUS per A.D.A. criteria. Please note revised GLUCOSE reference range effective 2017. LAB L501.1000 7-18 mg/dL Normal BUN 17 LAB L501.1100 0.55-1.02 mg/dL Normal CREAT,SERUM 0.79 Result Comment: The validity of the calculated GFR AND GFRAA in patients over 70 years has not been determined. Clinical correlation is essential. LAB L501.1110 >60 mL/min Normal EST GFR 75 Result Comment: Non- GFR Calc LAB L501.1115 >60 mL/min Normal EST GFR - AA 91 Result Comment: GFR Calc LAB L501.1300 10-20 RATIO High BUN/CRE 21.5 LAB L501.2200 8.5-10.1 mg/dL CA Normal 10.1 LAB L501.5300 136-145 mmol/L NA Normal 137 LAB L501.5600 3.5-5.1 mmol/L K Normal 4.3 Result Comment: Moderate Hemolysis, Result may be falsely increased. LAB L501.5900 98-107 mmol/L Normal CL 103 LAB L501.6100 21.0-32.0 mmol/L Normal CO2 23.0 LAB L501.6200 5-15 Normal GAP 11 Performed By: #### L500.2500 #### [facility] [address] [place], [address] HEMOGLOBIN A1C Collected: 03/03/2018 Status: F Source: [place] 2:41 PM [facility] REPOSITORY TYPE CODE TESTS RESULT OUT OF RANGE REFERENCE UNITS LAB L501.9985 4.2-6.3 % High HGB A1C 8.2 Performed By: #### L501.9985 #### [facility] [address] [place], [address] CBC W/DIFF, AUTOMATED Collected: 03/03/2018 Status: F Source: [place] 2:41 PM [facility] REPOSITORY TYPE CODE TESTS RESULT OUT OF RANGE REFERENCE UNITS LAB L100.1000 4.4-11.0 K/mm3 Normal WBC 8.7 LAB L100.1200 4.2-5.4 M/mm3 Normal RBC 5.13 LAB L100.1300 12.0-15.0 g/dl High HGB 15.4 LAB L100.1400 37-47 % High HCT 48.0 LAB L100.1500 81-99 fL Normal MCV 93.6 LAB L100.1600 27.0-32.0 pg Normal MCH 30.0 LAB L100.1700 32-36 g/gl Normal MCHC 32.1 LAB L100.1810 11.6-14.6 % Normal RDW CV 13.7 LAB L100.1820 35.1-43.9 fl High RDW SD 46.9 LAB L100.1900 150-450 K/mm3 Low PLT 147 LAB L100.2000 6.2-12.0 fl Normal MPV 11.0 LAB L100.2100 47-70 % Normal NEUT% 62.6 LAB L100.2200 19-41 % Normal LY% 30.0 LAB L100.2300 0-10 % Normal MONO% 5.8 LAB L100.2400 0-5 % Normal EO% 0.7 LAB L100.2500 0-1 % Normal BASO% 0.3 LAB L100.2550 0.0-0.9 % Normal IM GRAN % 0.600 Result Comment: IG% - Immature Granulocytes (promyelocytes, myelocytes and metamyelocytes) > 1% indicates that a LEFT SHIFT is Present. LAB L100.2620 2.0-7.7 X10 3/uL Normal Absolute Neut 5.4 LAB L100.2720 0.83-4.51 X10 3/ul Normal Absolute Lymph 2.60 Performed By: #### L100.0100 #### [facility] [address] [place], [address] BASIC METABOLIC Collected: 03/03/2018 Status: F Source: [place] PROFILE ([facility]) 2:41 PM [facility] REPOSITORY TYPE CODE TESTS RESULT OUT OF RANGE REFERENCE UNITS LAB L501.0100 74-106 mg/dL High GLU 188 Result Comment: Fasting Glucose result greater than or equal to 126 mg/dL suggests DIABETES MELLITUS per A.D.A. criteria. Please note revised GLUCOSE reference range effective 2017. LAB L501.1000 7-18 mg/dL Normal BUN 17 LAB L501.1100 0.55-1.02 mg/dL Normal CREAT,SERUM 0.79 Result Comment: The validity of the calculated GFR AND GFRAA in patients over 70 years has not been determined. Clinical correlation is essential. LAB L501.1110 >60 mL/min Normal EST GFR 75 Result Comment: Non- GFR Calc LAB L501.1115 >60 mL/min Normal EST GFR - AA 91 Result Comment: GFR Calc LAB L501.1300 10-20 RATIO High BUN/CRE 21.5 LAB L501.2200 8.5-10.1 mg/dL CA Normal 10.1 LAB L501.5300 136-145 mmol/L NA Normal 137 LAB L501.5600 3.5-5.1 mmol/L K Normal 4.3 Result Comment: Moderate Hemolysis, Result may be falsely increased. LAB L501.5900 98-107 mmol/L Normal CL 103 LAB L501.6100 21.0-32.0 mmol/L Normal CO2 23.0 LAB L501.6200 5-15 Normal GAP 11 Performed By: #### L500.2500 #### [facility] [address] [place], [address] HEMOGLOBIN A1C Collected: 03/03/2018 Status: F Source: [place] 2:41 PM [facility] REPOSITORY TYPE CODE TESTS RESULT OUT OF RANGE REFERENCE UNITS LAB L501.9985 4.2-6.3 % High HGB A1C 8.2 Performed By: #### L501.9985 #### [facility] [address] [facility] [address] Observed: 03/03/2018 Status: F Source: [place] MRSA/SAID SCREEN 2:41 PM [facility] REPOSITORY MRSA/SAID SCRN S. AUREUS S. aureus Negative MRSA MRSA Negative Performed By: #### M100.651 #### [facility] [address] [place], [address] CARDIOLOGY VISIT Observed: 02/28/2018 Status: F Source: [place] REPORT 11:01 AM [facility] REPOSITORY [facility] [address] [place] [address] OFFICE VISIT Date of Service: 02/28/18 MR#: [id number] Acct: [id number] Name: KATHERIN MARTIN Rep #: [id number] : 1940 Provider: Casa Puentes MD Age/Sex: 77/F Location: [facility] Status: Signed HPI HPI Chief Complaint: Preoperative cardiac evaluation Details: KATHERIN MARTIN, is a 77 F who presents to the office today for preoperative cardiac evaluation. She is a lady with a history of hypertension, hyperlipidemia, obesity, paroxysmal atrial fibrillation and previous DVT with knee surgery. She is scheduled to undergo right total knee replacement in February 2018. She denies any chest pain. She does have baseline shortness of breath but no dizziness or diaphoresis no near syncope or syncope. She says that her knee problems have not allowed her to be very mobile. She did have an echocardiogram performed in August 2017 which demonstrated an ejection fraction of 55%, a Holter monitor was performed due to palpitations and had occasional ectopic beats only, and a pharmacologic myocardial perfusion stress test was performed which demonstrated no evidence of ischemia. Her physical exam here today demonstrates clear lung golden regular rate and rhythm and no pedal edema. Intake Vital Signs02/28/18 Height 5 ft 3 in 02/28/18 Weight: 245 lb 02/28/18 Body Mass Index (BMI) 43.4 02/28/18 Blood Pressure 124/62 H 02/28/18 Respiratory Rate 18 02/28/18 Pulse Rate 72 Intake Visit Reasons: 3 M FU, also ortho pre-op Allergies duloxetine [From Cymbalta] Allergy (Verified 02/28/18 10:39) Other ramelteon [From Rozerem] Allergy (Verified 02/28/18 10:39) Other bupropion Adverse Reaction (Verified 02/28/18 10:39) Other bupropion HCl [From Wellbutrin] Adverse Reaction (Verified 02/28/18 10:39) Other dexfenfluramine HCl [From Redux] Adverse Reaction (Verified 02/28/18 10:39) Unknown hydrochlorothiazide Adverse Reaction (Verified 02/28/18 10:39) Other ketorolac tromethamine [From Toradol] Adverse Reaction (Verified 02/28/18 10:39) Itching oxaprozin [From Daypro] Adverse Reaction (Verified 02/28/18 10:39) Other Medications ALPRAZolam [Xanax] 0.5 mg PO QHS 12/11/13 [History Confirmed 02/28/18] Diltiazem CD [Cardizem CD] 240 mg PO DAILY 12/11/13 [History Confirmed 02/28/18] Sitagliptin Phosphate [Januvia] 100 mg PO DAILY 05/30/17 [History Confirmed 02/28/18] Empagliflozin [Jardiance] 25 mg PO DAILY #30 tab 06/12/17 [Rx Confirmed 02/28/18] Ondansetron [Zofran Odt] 4 mg PO Q6H PRN PRN #30 tab 06/12/17 [Rx Confirmed 02/28/18] Oxycodone [Oxyir] 5 - 10 mg PO Q4H PRN PRN 3 Days #12 tab 06/22/17 [Rx Confirmed 02/28/18] Cyanocobalamin [Vitamin B12] 100 mcg IM Q30D 07/31/17 [History Confirmed 02/28/18] Ergocalciferol [Vitamin D] 50,000 unit PO Q7D 07/31/17 [History Confirmed 02/28/18] Fluticasone Propionate [Flonase Allergy Relief] 1 spray INHALATION DAILY 07/31/17 [History Confirmed 02/28/18] Zolpidem Tartrate [Ambien Cr] 12.5 mg PO QHS PRN PRN 07/31/17 [History Confirmed 02/28/18] irbesartan 300 mg tablet 300 mg PO QDAY 09/12/17 [History Confirmed 02/28/18] atenolol 50 mg tablet 50 mg PO QDAY #30 tab 09/24/17 [Rx Confirmed 02/28/18] tramadol 50 mg tablet 50 mg PO .Q12 PRN #20 tab 10/17/17 [Rx Confirmed 02/28/18] PFS Medical History History of DVT of lower extremity (Resolved 05/2017) Essential (primary) hypertension (Chronic) Paroxysmal atrial fibrillation (Suspected) Hyperlipidemia (Chronic) History of hysterectomy (Acute) DDD (degenerative disc disease) (Chronic) DVT (deep venous thrombosis) (Chronic) Obesity (Chronic) Osteoarthritis (Chronic) Small bowel obstruction (Chronic) Type 2 diabetes mellitus (Chronic) Segmental and somatic dysfunction of pelvic region (Resolved) Segmental and somatic dysfunction of sacral region (Resolved) Segmental and somatic dysfunction of thoracic region (Resolved) History of hysterectomy (Inactive) Segmental and somatic dysfunction of lumbar region (Inactive) whipple surgery (Inactive) Surgical History H/O medial meniscus repair of right knee (Acute) History of bladder suspension procedure (Acute) History of bowel resection (Acute) Hx of cholecystectomy (Acute) History of bilateral carpal tunnel release (Inactive) History of bladder suspension procedure (Inactive) S/P cholecystectomy (Inactive) sigmoid colon removed (Inactive) vaginal wall repaired (Inactive) Family History Mother Myocardial infarction Social History Smoking Status: Never smoker second hand exposure: No alcohol intake: current alcohol intake frequency: holidays/special occasions only substance use type: does not use caffeine: Yes what type of physical activity do you participate in: none frequency: does not exercise seatbelt use: always ROS Const Const: Positive for fatigue and weakness; negative for difficulty sleeping, frequent falls, excessive sweating or headache(s) Eyes Eyes: Negative for loss of peripheral vision, transient loss of vision, blurry vision, tunnel vision or double vision ENT ENT: Negative for headache(s), dizziness, Nosebleed/epistaxis or balance problems Cardio Chest Pain: No Palpitations: Yes (Admits that it better since changing atenolol dose to the evening) Edema: None Muscle aches with walking: None Resp Respiratory: Negative for SOB with activity, SOB at rest, SOB orthopnea\SOB lying down, paroxysmal nocturnal dyspnea or Cough GI GI: Negative nausea, heartburn, black,tarry stools or vomiting : Negative for hematuria Musc Musc: Positive for joint pain; negative for balance problems, muscle aches/ myalgia or muscle weakness Skin Skin: Negative non-healing lesions, unusual bruising or rash Neuro Neuro: Positive for weakness; negative for frequent falls, headache(s), blurry vision, double vision, dizziness, lightheadedness, orthostatic symptoms, near syncope, syncope or lack of coordination Yousuf Hematologic/Lymphatic: Negative for easy bruising or easy bleeding Endo Endo: Positive for fatigue; negative for excessive sweating or increased thirst/drinking Psych Psych: Negative for anxiety or depression Allergy Allergy/Immunology: Negative for hives, Negative for rash Cardiology Exam Const Appearance: cooperative, healthy appearing, well developed, well groomed and no acute distress Nutritional Appearance: well nourished and average body habitus Orientation: alert, awake and oriented x3 Head Head: normal to inspection, normocephalic and atraumatic Ears: hearing grossly normal bilaterally and external ears normal Nose: external nose normal, nasal mucous membranes and turbinates normal, nares normal, septum normal, no nasal discharge Face and Sinus: face symmetric Mouth: oral mucosae normal, tongue normal, oropharynx normal and moist mucous membranes Teeth and gingiva: dentition normal Throat: posterior oropharynx normal, tonsils normal and uvula midline Eyes General: appearance normal, both eyes and all related structures Eyelids: eyelids normal Conjunctivae: conjunctivae normal Pupils: PERRL, normal by confrontation and accommodation normal EOM: EOM intact bilaterally Neck Neck: normal visual inspection, trachea midline and no JVD JVD: +5 Carotids: normal carotid upstroke and bounding pulses Chest Chest inspection: normal inspection of the chest, symmetric chest movement and normal respiratory effort Auscultation: Bilateral: Clear to Auscultation Cardio Palpation: normal PMI Rate: regular rate Rhythm: regular rhythm Heart sounds: S1 normal, S2 normal and normal, physiologic split S2; negative rub, gallop or murmur GI GI: normal to inspection, soft, no hepatosplenomegaly and bowel sounds present Neuro General: alert, awake, oriented x3, no focal sensory deficit, gait normal and moves all extremities Skin Skin: no rashes or lesions noted Extremities Pulses: Normal: Right Femoral Pulse, Left Femoral Pulse, Right Dorsalis Pedis Pulse, Left Dorsalis Pedis Pulse, Right Posterior Tibial Pulse, Left Posterior Tibial Pulse, Right Radial Pulse, Left Radial Pulse Lower Extremity Edema: None: Bilateral Musculoskel Musculoskeletal: No joint tenderness Psych Psychological: normal affect Assessment AND Plan 1. Preop cardiovascular exam Z01.810 Plan Her assessment for her preoperative cardiovascular exam appears to be stable she has had appropriate echocardiogram and stress testing performed and I do not think that there is a reason for her to pursue this again. She is asymptomatic recommendations will be for her to take her medications up to and including the morning of surgery. Due to her previous history of deep vein thrombosis appropriate prophylaxis needs to be undertaken. 2. Essential (primary) hypertension I10 Plan She does have a history of hypertension which is well controlled on the current medical therapy. No other changes will be made. 3. Paroxysmal atrial fibrillation I48.0 Plan She does have a history of paroxysmal atrial fibrillation she has not had any recent paroxysms and her Holter monitor was reassuring. No other changes will be made in this regard. Thank you for allowing me to participate in the care of your patient. Please don't hesitate to call if any issues arise Plan Detail Goals Decrease LBP Decrease inflammation Barriers DDD Obesity Previous knee surgery Follow Up 1 Year (mmm) Coding Level of Care Code Off vis,est,level 4 Diagnoses Preop cardiovascular exam Z01.810 Essential (primary) hypertension I10 Paroxysmal atrial fibrillation I48.0 Coding Level of Care Code Off vis,est,level 4 Diagnoses Preop cardiovascular exam Z01.810 Essential (primary) hypertension I10 Paroxysmal atrial fibrillation I48.0 02/28/18 1101 <Electronically signed by Casa Puentes MD> Date Casa Puentes MD Cosigner Signature: Date (if applicable) CC: Moo Reaves MD PROGRESS Observed: 01/01/2018 Status: COMPLETED Source: [place] 2:00 PM [facility] [place] REPOSITORY O ID: [id number] Author: Abdirashid Malone (Pharmacist) Service: (none) Author Type: Pharmacist Type: Progress Notes Filed: 01/01/2018 4:38 PM Note Text: Patient consents to pharmacy collaborative practice agreement. REASON FOR CONSULT: DM GOALS: A1c < 8% CONSULTING PROVIDER: Dr. Reaves Date of Consult: 11/14/17 Katherin Martin is a 77 year old female was last seen by PCP, Dr. Moo Reaves MD on 11/28 - no medication made to DM regimen. Subjective: Patient is presenting today for f/u pharmacotherapy management appointment for diabetes. At last PharmD visit on 11/28, empagliflozin was discontinued and canagliflozin was restarted at patient request. INTERIM HISTORY: Has appt with surgeon on Saturday Having knee replacement sometime this winter Reports BGs have not been good lately Says she doesn't check her numbers frequently Patient says she is still getting fungal infections - patient wondering if sitagliptin is causing it Patient wants off sitagliptin Has bumps on right forearm, also itchy Has not had it checked out - PharmD recommended to schedule f/u appt with physician today Reports tolerating canagliflozin well Denies noticing any differences since switching from empagliflozin to canagliflozin Past DM medications: Metformin - discontinued for unknown reasons ? Current DM Medications: Canagliflozin 300mg daily Sitagliptin 100mg daily ? Current HTN Medications: Diltiazem CD 240mg daily Bumetanide 0.5mg daily PRN swelling Irbesartan 300mg daily Atenolol 50mg daily Preventative Medications: ? On CHAS/ARB: Yes ? On Statin: Yes ? On ASA: No ROS: ? Patient denies CP, SOB, BISWAS, blurred vision, dizziness or lightheadedness ? Patient denies symptoms of hypoglycemia (sweating, anxiety, palpitations, hunger, and tremor) ? Patient denies symptoms of hyperglycemia (polyuria, polydipsia, polyphagia) ? Patient denies potential medication adverse effects DIET/EXERCISE/SOCIAL Hx: ? Says she is drinking too much root beer and eating too many sweets ? Holidays are hard with depression - eating more sweets and watching tv MEDICATIONS: ? Pill bottles are not present. ? Adherence: denies missed doses. ? Pharmacy: [facility] ? Rx coverage: [employer] Medicare ? Affordability: one of her DM meds is very costly (can't recall if empagliflozin or sitagliptin) ? Diabetes supplies: One Touch (buys of shelf) ? Organization System: pill box ACTIVE PROBLEM LIST Primary Osteoarthritis Involving Multiple Joints Obesity Myalgia and Myositis, Unspecified Chronic Pancreatitis (Hcc) Osteopenia Essential Hypertension Hypertriglyceridemia Depression Atrial Fibrillation (Hcc) Vitamin D Deficiency Anxiety Controlled Substance Agreement Signed Stress and Adjustment Reaction Chronic Abdominal Pain Add (Attention Deficit Disorder) Without Hyperactivity Hyperparathyroidism , Secondary, Non-Renal (Hcc) Hyperparathyroidism, Primary (Hcc) Dm (Diabetes Mellitus), Type 2 (Hcc) Ddd (Degenerative Disc Disease), Lumbosacral Edema of Both Legs PAST MEDICAL HISTORY Diagnosis Date - Abdominal pain, right upper quadrant 10/26/2005 - Abnormal ECG 11/27/2013 - Bicipital tenosynovitis 05/28/2005 - CARDIAC DYSRHYTHMIAS NEC 12/11/2004 - Decreased libido 11/21/2011 - Diverticulitis 12/18/13 - DIVERTICULITIS OF COLON W/O BLEED 12/11/2004 - DM (diabetes mellitus), type 2 (HCC) - Hyperparathyroidism , secondary, non-renal (HCC) 06/20/2016 - Incisional hernia 11/02/2013 - ISOLATED OR SPECIFIC PHOBIAS NEC 12/11/2004 - Left lower quadrant pain 11/02/2013 - LLQ pain 12/18/13 - Menopausal hot flushes 10/17/2011 - OBESITY NOS 12/11/2004 - OSTEOARTHROS NOS-OTHER SITE 12/11/2004 L knee arthritis - Other voice and resonance disorders 10/24/2011 - PEPTIC ULCER NOS 12/11/2004 - Transient disorder of initiating or maintaining sleep 02/14/2005 - Vaginal dryness, menopausal 10/17/2011 ALLERGIES Allergen Reactions - Toradol [Ketorolac * Swelling itching - Cymbalta [Duloxetin* Mental Status Change confusion; nightmares; may have been due to also UTI, etc but will not try again - Redux Mental Status Change nightmares - Rozerem [Ramelteon] Intolerance [place] paralyzed and gave her nightmares Medication List Medication Directions Comments Action/Plan ALPRAZolam (XANAX) 0.5 mg tablet Take 1 tablet by mouth twice daily for 90 days. aluminum hydrox-magnesium carb (GAVISCON) 95-358 mg/15 mL suspension Take 15 mL by mouth every 6 hours as needed. Patient not taking: Reported on 09/17/2017 atenolol (TENORMIN) 50 mg tablet Take 1 tablet by mouth once daily. benzonatate (TESSALON PERLE) 100 mg capsule Take 1 capsule by mouth three times daily as needed. Patient not taking: Reported on 09/17/2017 blood sugar diagnostic (BLOOD GLUCOSE TEST) test strip Test blood sugar(s) once or twice daily. Dx: E11.9. Med: Invokana. One touch meter. bumetanide (BUMEX) 0.5 mg tablet Take 1 tablet by mouth once daily as needed. As directed for swelling canagliflozin (INVOKANA) 300 mg tablet Take 1 tablet by mouth daily with breakfast. cholecalciferol, Vitamin D3, (VITAMIN D3) 50,000 unit cap capsule Take 1 capsule by mouth twice a week. ciclopirox (LOPROX) 0.77 % cream Apply 1 application to affected area twice daily. Clotrimazole 2 % crea Use 1 Applicatorful vaginally daily at bedtime. For vaginitis; May apply to external areas with yeast infection daily until rash or itching codeine-guaiFENesin (GUAIFENESIN AC) 10-100 mg/5 mL syrup Take 5 mL by mouth once daily as needed for up to 90 days. Patient not taking: Reported on 09/17/2017 cyanocobalamin 1,000 mcg/mL soln Inject 1 mL intramuscularly once every month. diltiazem CD (CARDIZEM CD, CARTIA XT) 240 mg 24 hr capsule TAKE 1 CAPSULE BY MOUTH ONCE DAILY. esterified estrogens-methylTESTOSTERone (ESTRATEST HS) 0.625- 1.25 mg per tablet Take 1 tablet by mouth once daily. Patient not taking: Reported on 09/17/2017 fluticasone (FLONASE) 50 mcg/actuation nasal spray Use 2 Sprays in each nostril once daily. Rinse mouth after use. icosapent ethyl (VASCEPA) 1 gram cap Take by mouth. irbesartan (AVAPRO) 300 mg tablet TAKE 1 TABLET BY MOUTH ONCE DAILY. Lancets lancets Test blood sugar(s) once or twice daily. Dx: E11.9. Med: Invokana. One touch meter. meloxicam (MOBIC) 7.5 mg tablet Take 7.5 mg by mouth once daily. nystatin (MYCOSTATIN) powder APPLY 1 APPLICATION TO AFFECTED AREA THREE TIMES DAILY. DIRECTED FOR TREATMENT OF YEAST INFECTION ondansetron orally disintegrating (ZOFRAN ODT) 4 mg disintegrating tablet Take 1 tablet by mouth every 6 hours as needed. oxyCODONE-acetaminophen (PERCOCET) 7.5-325 mg tablet Take 1 tablet by mouth twice daily as needed for up to 30 days. For severe pain. Earliest Fill Date: 11/29/17 oxyCODONE-acetaminophen (PERCOCET) 7.5-325 mg tablet Take 1 tablet by mouth twice daily as needed for up to 30 days. For severe pain. Earliest Fill Date: 12/29/17 oxyCODONE-acetaminophen (PERCOCET) 7.5-325 mg tablet Take 1 tablet by mouth twice daily as needed for up to 30 days. For severe pain. Earliest Fill Date: 01/28/18 oxyCODONE-acetaminophen (PERCOCET) 7.5-325 mg tablet Take 1 tablet by mouth twice daily as needed for up to 30 days. For severe pain. Earliest Fill Date: 02/27/18 pravastatin (PRAVACHOL) 20 mg tablet Take 1 tablet by mouth daily at bedtime. sitaGLIPtin (JANUVIA) 100 mg tablet Take 1 tablet by mouth once daily. Zolpidem (AMBIEN CR) 12.5 mg CR tablet TAKE 1 TABLET AT BEDTIME GLYCEMIC CONTROL: ? Glucometer present at visit: No ? SMBG?s: Date Fasting AM 01/01 172 12/31 164 12/30 180 12/29 206 12/28 174 ? Hypoglycemia: none Objective: VITALS: BP 130/73 Pulse 60 Last 3 Encounter BP Readings: Date: BP: 11/28/2017 156/69 11/28/2017 128/84 11/14/2017 132/73 Wt: 106.3 kg (234 lb 6.4 oz) BMI: 41.52 kg/(m2) LABS Lab Results Component Value Date HBA1C 8.2 11/14/2017 HBA1C 7.0 08/15/2017 HBA1C 8.2 03/15/2017 CMP: Glucose 163 11/14/2017 BUN 17 11/14/2017 Creatinine 0.62 11/14/2017 Sodium 138 11/14/2017 Potassium 4.5 11/14/2017 Chloride 102 11/14/2017 CO2 22 11/14/2017 Protein, Total 7.0 11/14/2017 Albumin 4.0 11/14/2017 Calcium 10.5 11/14/2017 Alkaline Phosphatase 70 11/14/2017 Bilirubin, Total 0.3 11/14/2017 AST 19 11/14/2017 ALT 18 11/14/2017 eGFR >60 (per CMP on 11/14/17) ? Estimated CrCL 89.3 mL/min (calculated using Ht 160 cm, adjusted Wt 73.3 kg, sCr 0.62 mg/dL, using [place]) Last Lipid Panel Lab Results Component Value Date CHOL 254 03/15/2017 Lab Results Component Value Date HDL 43 03/15/2017 Lab Results Component Value Date LDL Unable to calculate due to increased Triglycerides. See LDL-Chol, Direct. 03/15/2017 Lab Results Component Value Date TG 501 03/15/2017 Albumin/Creat Ratio (mg/g) Date Value 11/14/2017 Not calculated PHARMACOTHERAPY ASSESSMENT/PLAN: 1. Controlled type 2 diabetes mellitus without complication, without long-term current use of insulin (HCC) - ICD9: 250.00, ICD10: E11.9 (primary diagnosis) A1c goal <8%; uncontrolled based on last A1c (8.2%) but due for recheck; patient recently switched from empagliflozin to canagliflozin because of patient preference - patient denies noticing any changes since the switch; patient eager to get off sitagliptin - she thinks it is too expensive and may be contributing to frequent yeast infxns; PharmD informed patient that yeast infxns is almost certainly caused by canagliflozin (PharmD educated patient about this at last visit when she wanted to switch from empagliflozin - was informed that they are both in the same class and equally likely to cause mycotic infxns); patient previously on metformin but it was discontinued for unknown reason; kidney fxn WNL so will initiate metformin today and discontinue sitagliptin; counseled patient on possible GI issues with metformin - encouraged her to keep taking it daily until sx subside; renal fxn and LFTs WNL and appropriate for continued use - DISCONTINUE sitagliptin 100mg daily - INITIATE metformin ER 500mg daily - CONTINUE canagliflozin 300mg daily - Encouraged patient to stop drinking root beer 2. Essential hypertension - ICD9: 401.9, ICD10: I10 BP goal <140/90; controlled on current regimen and tolerating well; no concerns for orthostasis; renal fxn, HR, K+, and LFTs WNL so appropriate for continued use - CONTINUE diltiazem CD 240mg daily, bumetanide 0.5mg daily PRN, irbesartan 300mg daily, and atenolol 50mg daily Patient is scheduled to see PCP on 01/14. Patient to f/u with PharmD via phone on 01/22. Patient verbalized understanding of instructions. Abdirashid Malone, Kari, [facility] Primary Care Clinical Pharmacist [facility] CNOV Observed: 01/01/2018 Status: COMPLETED Source: LAJAS 2:00 PM [facility] REPOSITORY Office Visit (PHMEWO) KATHERIN MRATIN ([id number]) 1940 F Date Time Provider Department 01/01/18 2:00 PM WANDER (PHARMACIST), ABDIRASHID CHIN During your visit today, we recorded the following information about you: Pulse Blood pressure 60/minute 130/73 ABDIRASHID MALONE, PHARMACIST 01/01/2018 4:38 PM Signed Patient consents to pharmacy collaborative practice agreement. REASON FOR CONSULT: DM GOALS: A1c < 8% CONSULTING PROVIDER: Dr. Reaves Date of Consult: 11/14/17 Katherin Martin is a 77 year old female was last seen by PCP, Dr. Moo Reaves MD on 11/28 - no medication made to DM regimen. Subjective: Patient is presenting today for f/u pharmacotherapy management appointment for diabetes. At last PharmD visit on 11/28, empagliflozin was discontinued and canagliflozin was restarted at patient request. INTERIM HISTORY: Has appt with surgeon on Saturday Having knee replacement sometime this winter Reports BGs have not been good lately Says she doesn't check her numbers frequently Patient says she is still getting fungal infections - patient wondering if sitagliptin is causing it Patient wants off sitagliptin Has bumps on right forearm, also itchy Has not had it checked out - PharmD recommended to schedule f/u appt with physician today Reports tolerating canagliflozin well Denies noticing any differences since switching from empagliflozin to canagliflozin Past DM medications: Metformin - discontinued for unknown reasons ? Current DM Medications: Canagliflozin 300mg daily Sitagliptin 100mg daily ? Current HTN Medications: Diltiazem CD 240mg daily Bumetanide 0.5mg daily PRN swelling Irbesartan 300mg daily Atenolol 50mg daily Preventative Medications: ? On CHAS/ARB: Yes ? On Statin: Yes ? On ASA: No ROS: ? Patient denies CP, SOB, BISWAS, blurred vision, dizziness or lightheadedness ? Patient denies symptoms of hypoglycemia (sweating, anxiety, palpitations, hunger, and tremor) ? Patient denies symptoms of hyperglycemia (polyuria, polydipsia, polyphagia) ? Patient denies potential medication adverse effects DIET/EXERCISE/SOCIAL Hx: ? Says she is drinking too much root beer and eating too many sweets ? Holidays are hard with depression - eating more sweets and watching tv MEDICATIONS: ? Pill bottles are not present. ? Adherence: denies missed doses. ? Pharmacy: [facility] ? Rx coverage: [employer] Medicare ? Affordability: one of her DM meds is very costly (can't recall if empagliflozin or sitagliptin) ? Diabetes supplies: One Touch (buys of shelf) ? Organization System: pill box ACTIVE PROBLEM LIST Primary Osteoarthritis Involving Multiple Joints Obesity Myalgia and Myositis, Unspecified Chronic Pancreatitis (Hcc) Osteopenia Essential Hypertension Hypertriglyceridemia Depression Atrial Fibrillation (Hcc) Vitamin D Deficiency Anxiety Controlled Substance Agreement Signed Stress and Adjustment Reaction Chronic Abdominal Pain Add (Attention Deficit Disorder) Without Hyperactivity Hyperparathyroidism , Secondary, Non-Renal (Hcc) Hyperparathyroidism, Primary (Hcc) Dm (Diabetes Mellitus), Type 2 (Hcc) Ddd (Degenerative Disc Disease), Lumbosacral Edema of Both Legs PAST MEDICAL HISTORY Diagnosis Date - Abdominal pain, right upper quadrant 10/26/2005 - Abnormal ECG 11/27/2013 - Bicipital tenosynovitis 05/28/2005 - CARDIAC DYSRHYTHMIAS NEC 12/11/2004 - Decreased libido 11/21/2011 - Diverticulitis 12/18/13 - DIVERTICULITIS OF COLON W/O BLEED 12/11/2004 - DM (diabetes mellitus), type 2 (HCC) - Hyperparathyroidism , secondary, non-renal (HCC) 06/20/2016 - Incisional hernia 11/02/2013 - ISOLATED OR SPECIFIC PHOBIAS NEC 12/11/2004 - Left lower quadrant pain 11/02/2013 - LLQ pain 12/18/13 - Menopausal hot flushes 10/17/2011 - OBESITY NOS 12/11/2004 - OSTEOARTHROS NOS-OTHER SITE 12/11/2004 L knee arthritis - Other voice and resonance disorders 10/24/2011 - PEPTIC ULCER NOS 12/11/2004 - Transient disorder of initiating or maintaining sleep 02/14/2005 - Vaginal dryness, menopausal 10/17/2011 ALLERGIES Allergen Reactions - Toradol [Ketorolac * Swelling itching - Cymbalta [Duloxetin* Mental Status Change confusion; nightmares; may have been due to also UTI, etc but will not try again - Redux Mental Status Change nightmares - Rozerem [Ramelteon] Intolerance [place] paralyzed and gave her nightmares Medication List Medication Directions Comments Action/Plan ALPRAZolam (XANAX) 0.5 mg tablet Take 1 tablet by mouth twice daily for 90 days. aluminum hydrox-magnesium carb (GAVISCON) 95-358 mg/15 mL suspension Take 15 mL by mouth every 6 hours as needed. Patient not taking: Reported on 09/17/2017 atenolol (TENORMIN) 50 mg tablet Take 1 tablet by mouth once daily. benzonatate (TESSALON PERLE) 100 mg capsule Take 1 capsule by mouth three times daily as needed. Patient not taking: Reported on 09/17/2017 blood sugar diagnostic (BLOOD GLUCOSE TEST) test strip Test blood sugar(s) once or twice daily. Dx: E11.9. Med: Invokana. One touch meter. bumetanide (BUMEX) 0.5 mg tablet Take 1 tablet by mouth once daily as needed. As directed for swelling canagliflozin (INVOKANA) 300 mg tablet Take 1 tablet by mouth daily with breakfast. cholecalciferol, Vitamin D3, (VITAMIN D3) 50,000 unit cap capsule Take 1 capsule by mouth twice a week. ciclopirox (LOPROX) 0.77 % cream Apply 1 application to affected area twice daily. Clotrimazole 2 % crea Use 1 Applicatorful vaginally daily at bedtime. For vaginitis; May apply to external areas with yeast infection daily until rash or itching codeine-guaiFENesin (GUAIFENESIN AC) 10-100 mg/5 mL syrup Take 5 mL by mouth once daily as needed for up to 90 days. Patient not taking: Reported on 09/17/2017 cyanocobalamin 1,000 mcg/mL soln Inject 1 mL intramuscularly once every month. diltiazem CD (CARDIZEM CD, CARTIA XT) 240 mg 24 hr capsule TAKE 1 CAPSULE BY MOUTH ONCE DAILY. esterified estrogens-methylTESTOSTERone (ESTRATEST HS) 0.625- 1.25 mg per tablet Take 1 tablet by mouth once daily. Patient not taking: Reported on 09/17/2017 fluticasone (FLONASE) 50 mcg/actuation nasal spray Use 2 Sprays in each nostril once daily. Rinse mouth after use. icosapent ethyl (VASCEPA) 1 gram cap Take by mouth. irbesartan (AVAPRO) 300 mg tablet TAKE 1 TABLET BY MOUTH ONCE DAILY. Lancets lancets Test blood sugar(s) once or twice daily. Dx: E11.9. Med: Invokana. One touch meter. meloxicam (MOBIC) 7.5 mg tablet Take 7.5 mg by mouth once daily. nystatin (MYCOSTATIN) powder APPLY 1 APPLICATION TO AFFECTED AREA THREE TIMES DAILY. DIRECTED FOR TREATMENT OF YEAST INFECTION ondansetron orally disintegrating (ZOFRAN ODT) 4 mg disintegrating tablet Take 1 tablet by mouth every 6 hours as needed. oxyCODONE-acetaminophen (PERCOCET) 7.5-325 mg tablet Take 1 tablet by mouth twice daily as needed for up to 30 days. For severe pain. Earliest Fill Date: 11/29/17 oxyCODONE-acetaminophen (PERCOCET) 7.5-325 mg tablet Take 1 tablet by mouth twice daily as needed for up to 30 days. For severe pain. Earliest Fill Date: 12/29/17 oxyCODONE-acetaminophen (PERCOCET) 7.5-325 mg tablet Take 1 tablet by mouth twice daily as needed for up to 30 days. For severe pain. Earliest Fill Date: 01/28/18 oxyCODONE-acetaminophen (PERCOCET) 7.5-325 mg tablet Take 1 tablet by mouth twice daily as needed for up to 30 days. For severe pain. Earliest Fill Date: 02/27/18 pravastatin (PRAVACHOL) 20 mg tablet Take 1 tablet by mouth daily at bedtime. sitaGLIPtin (JANUVIA) 100 mg tablet Take 1 tablet by mouth once daily. Zolpidem (AMBIEN CR) 12.5 mg CR tablet TAKE 1 TABLET AT BEDTIME GLYCEMIC CONTROL: ? Glucometer present at visit: No ? SMBG?s: Date Fasting AM 01/01 172 12/31 164 12/30 180 12/29 206 12/28 174 ? Hypoglycemia: none Objective: VITALS: BP 130/73 Pulse 60 Last 3 Encounter BP Readings: Date: BP: 11/28/2017 156/69 11/28/2017 128/84 11/14/2017 132/73 Wt: 106.3 kg (234 lb 6.4 oz) BMI: 41.52 kg/(m2) LABS Lab Results Component Value Date HBA1C 8.2 11/14/2017 HBA1C 7.0 08/15/2017 HBA1C 8.2 03/15/2017 CMP: Glucose 163 11/14/2017 BUN 17 11/14/2017 Creatinine 0.62 11/14/2017 Sodium 138 11/14/2017 Potassium 4.5 11/14/2017 Chloride 102 11/14/2017 CO2 22 11/14/2017 Protein, Total 7.0 11/14/2017 Albumin 4.0 11/14/2017 Calcium 10.5 11/14/2017 Alkaline Phosphatase 70 11/14/2017 Bilirubin, Total 0.3 11/14/2017 AST 19 11/14/2017 ALT 18 11/14/2017 eGFR >60 (per CMP on 11/14/17) ? Estimated CrCL 89.3 mL/min (calculated using Ht 160 cm, adjusted Wt 73.3 kg, sCr 0.62 mg/dL, using [place]) Last Lipid Panel Lab Results Component Value Date CHOL 254 03/15/2017 Lab Results Component Value Date HDL 43 03/15/2017 Lab Results Component Value Date LDL Unable to calculate due to increased Triglycerides. See LDL-Chol, Direct. 03/15/2017 Lab Results Component Value Date TG 501 03/15/2017 Albumin/Creat Ratio (mg/g) Date Value 11/14/2017 Not calculated PHARMACOTHERAPY ASSESSMENT/PLAN: 1. Controlled type 2 diabetes mellitus without complication, without long-term current use of insulin (HCC) - ICD9: 250.00, ICD10: E11.9 (primary diagnosis) A1c goal <8%; uncontrolled based on last A1c (8.2%) but due for recheck; patient recently switched from empagliflozin to canagliflozin because of patient preference - patient denies noticing any changes since the switch; patient eager to get off sitagliptin - she thinks it is too expensive and may be contributing to frequent yeast infxns; PharmD informed patient that yeast infxns is almost certainly caused by canagliflozin (PharmD educated patient about this at last visit when she wanted to switch from empagliflozin - was informed that they are both in the same class and equally likely to cause mycotic infxns); patient previously on metformin but it was discontinued for unknown reason; kidney fxn WNL so will initiate metformin today and discontinue sitagliptin; counseled patient on possible GI issues with metformin - encouraged her to keep taking it daily until sx subside; renal fxn and LFTs WNL and appropriate for continued use - DISCONTINUE sitagliptin 100mg daily - INITIATE metformin ER 500mg daily - CONTINUE canagliflozin 300mg daily - Encouraged patient to stop drinking root beer 2. Essential hypertension - ICD9: 401.9, ICD10: I10 BP goal <140/90; controlled on current regimen and tolerating well; no concerns for orthostasis; renal fxn, HR, K+, and LFTs WNL so appropriate for continued use - CONTINUE diltiazem CD 240mg daily, bumetanide 0.5mg daily PRN, irbesartan 300mg daily, and atenolol 50mg daily Patient is scheduled to see PCP on 01/14. Patient to f/u with PharmD via phone on 01/22. Patient verbalized understanding of instructions. Abdirashid Malone, ShivD, BCPS Primary Care Clinical Pharmacist [facility] DARLENE BARNETT 01/01/2018 2:25 PM Signed STOP Januvia (sitagliptin) START metformin ER 500mg daily Cut back on (or stop drinking) oh hawkins Referring Provider: MOO REAVES [[id number]] Allergies As of Date: 01/01/2018 Noted Allergy Reaction TORADOL (KETOROLAC TROMETHAMINE) 11/16/2004 7 - Swelling Comments: itching CYMBALTA (DULOXETINE) 06/28/2017 1 - Mental Status Change Comments: confusion; nightmares; may have been due to also UTI, etc but will not try again REDUX 11/05/2016 1 - Mental Status Change Comments: nightmares ROZEREM (RAMELTEON) 06/20/2016 5 - Intolerance Comments: [place] paralyzed and gave her nightmares Date Reviewed: 11/28/2017 Reviewed by: Emilie Allan LPN - Fully Assessed Reason for Visit: Allied Health Visit [5] Cmt: DM f/u Primary Visit Diagnosis:Controlled type 2 diabetes mellitus without complication, without long-term current use of insulin (HCC) [E11.9] Other Visit Diagnosis:Essential hypertension [I10] Order(s):metFORMIN ER (GLUCOPHAGE XR) 500 mg 24 hr tabletTake 1 tablet by mouth once daily.Disp: 30 tabletRfl: 5 Prescriptions as of 01/01/2018 Sig: METFORMIN ER 500 MG TABLET,EX* Take 1 tablet by mouth once d* ZOLPIDEM ER 12.5 MG TABLET,EX* TAKE 1 TABLET AT BEDTIME ALPRAZOLAM 0.5 MG TABLET Take 1 tablet by mouth twice * IRBESARTAN 300 MG TABLET TAKE 1 TABLET BY MOUTH ONCE D* CANAGLIFLOZIN 300 MG TABLET Take 1 tablet by mouth daily * OXYCODONE-ACETAMINOPHEN 7.5 M* Take 1 tablet by mouth twice * OXYCODONE-ACETAMINOPHEN 7.5 M* Take 1 tablet by mouth twice * OXYCODONE-ACETAMINOPHEN 7.5 M* Take 1 tablet by mouth twice * MELOXICAM 7.5 MG TABLET Take 7.5 mg by mouth once quinten* CLOTRIMAZOLE 2 % VAGINAL CREAM Use 1 Applicatorful vaginally* NYSTATIN 100,000 UNIT/GRAM TO* APPLY 1 APPLICATION TO AFFECT* ATENOLOL 50 MG TABLET Take 1 tablet by mouth once d* CICLOPIROX 0.77 % TOPICAL CRE* Apply 1 application to affect* OXYCODONE-ACETAMINOPHEN 7.5 M* Take 1 tablet by mouth twice * DILTIAZEM SR 240 MG 24 HR CAP TAKE 1 CAPSULE BY MOUTH ONCE * ONDANSETRON 4 MG DISINTEGRATI* Take 1 tablet by mouth every * CHOLECALCIFEROL (VITAMIN D3) * Take 1 capsule by mouth twice* BUMETANIDE 0.5 MG TABLET Take 1 tablet by mouth once d* CODEINE 10 MG-GUAIFENESIN 100* Take 5 mL by mouth once daily* Patient not taking: Reported on 09/17/2017 CYANOCOBALAMIN (VIT B-12) 1,0* Inject 1 mL intramuscularly o* FLUTICASONE 50 MCG/ACTUATION * Use 2 Sprays in each nostril * BENZONATATE 100 MG CAPSULE Take 1 capsule by mouth three* Patient not taking: Reported on 09/17/2017 LANCETS Test blood sugar(s) once or t* PRAVASTATIN 20 MG TABLET Take 1 tablet by mouth daily * BLOOD SUGAR DIAGNOSTIC STRIPS Test blood sugar(s) once or t* ESTERIFIED ESTROGENS-METHYLTE* Take 1 tablet by mouth once d* Patient not taking: Reported on 09/17/2017 ALUMINUM HYDROX-MAGNESIUM CAR* Take 15 mL by mouth every 6 h* Patient not taking: Reported on 09/17/2017 ICOSAPENT ETHYL 1 GRAM CAPSULE Take by mouth. Problem List As Of Date 01/01/2018 Noted Resolved Primary osteoarthritis involving multiple joint*INVALID FOR* More... Obesity [E66.9] INVALID FOR* MYALGIA AND MYOSITIS NOS [[id number]] INVALID FOR* Chronic Pancreatitis [K86.1] INVALID FOR* Osteopenia [M85.80] INVALID FOR* More... Essential hypertension [I10] INVALID FOR* Hypertriglyceridemia [E78.1] INVALID FOR* Diabetes mellitus type II INVALID FOR*10/05/2013 Depression [F32.9] INVALID FOR* Atrial fibrillation [I48.91] INVALID FOR* Vitamin D deficiency [E55.9] INVALID FOR* Anxiety [F41.9] INVALID FOR* Controlled substance agreement signed [[id number]] INVALID FOR* Diabetes (HCC) [E11.9] INVALID FOR*08/14/2015 Stress and adjustment reaction [F43.29] INVALID FOR* Chronic abdominal pain [R10.9, G89.29] INVALID FOR* ADD (attention deficit disorder) without hypera*INVALID FOR* Hyperparathyroidism , secondary, non-renal (HCC*INVALID FOR* Hyperparathyroidism, primary (HCC) [E21.0] INVALID FOR* DM (diabetes mellitus), type 2 (HCC) [E11.9] DDD (degenerative disc disease), lumbosacral [M*INVALID FOR* Edema of both legs [R60.0] INVALID FOR* Other instructions from your clinician: STOP Januvia (sitagliptin) START metformin ER 500mg daily Cut back on (or stop drinking) root beer Prescriptions ordered this encounter Disp Refills Start End METFORMIN ER 500 MG TABLET,EXTENDED * 30 t* 5 01/01/2018 Route: ORAL Sig: Take 1 tablet by mouth once daily. Medications Discontinued During This Encounter sitaGLIPtin (JANUVIA) 100 mg tablet 90 t* 3 06/28/2017 01/01/2018 Route: ORAL Sig: Take 1 tablet by mouth once daily. Disc: Patient chooses alternative therapy Encounter Status:Closed by WANDER (PHARMACIST)ABDIRASHID on 01/01/18 PROGRESS Observed: 12/13/2017 Status: COMPLETED Source: LAJAS 11:02 AM [facility] [place] REPOSITORY O ID: [id number] Author: Mendy Chino [facility] Service: (none) Author Type: Registered Nurse Type: Progress Notes Filed: 12/13/2017 11:25 AM Note Text: PRIMARY CARE COORDINATION FOLLOW-UP NOTE Provider Action/FYI: Pt requiring intensive counseling. Very depressed. Recc she go back to counseling at [facility] and she will. Patient identified by name and date of . YES Spoke to patient Summary: Pt calling about her daughter needing drug rehab. She is distraught and feels the weight of the whole family is on her shoulders. Her almost 2 yrs ago and ex-daughter in law committed suicide about 18 months ago and she is grieving still and grand children are in upheaval. Concerns: I recc she return to counseling to help her. Gave her info about 180 but daughter lives in [place] and is in [facility]. Listened and offered advice but repeatedly recc counseling. [employer] plan for next outreach: No further follow up needed at this time. Signature Mendy Peres RN Ambulatory Smokehouse Operator Internal Medicine [facility] December 13, 2017 BRENNAN Observed: 12/13/2017 Status: COMPLETED Source: [place]FIN[place] 12:00 AM [facility] REPOSITORY Patient Outreach (INTMWS) KATHERIN MARTIN ([id number]) 1940 F Date Time Provider Department 12/13/17 MENDY VELAZQUEZ During your visit today, we recorded the following information about you: Mendy Chino RN 12/13/2017 11:25 AM Signed PRIMARY CARE COORDINATION FOLLOW-UP NOTE Provider Action/FYI: Pt requiring intensive counseling. Very depressed. Recc she go back to counseling at [facility] and she will. Patient identified by name and date of . YES Spoke to patient Summary: Pt calling about her daughter needing drug rehab. She is distraught and feels the weight of the whole family is on her shoulders. Her almost 2 yrs ago and ex-daughter in law committed suicide about 18 months ago and she is grieving still and grand children are in upheaval. Concerns: I recc she return to counseling to help her. Gave her info about 180 but daughter lives in [place] and is in [facility]. Listened and offered advice but repeatedly recc counseling. [employer] plan for next outreach: No further follow up needed at this time. Signature Mendy Peres RN Ambulatory Smokehouse Operator Internal Medicine [facility] December 13, 2017 Allergies As of Date: 12/13/2017 Noted Allergy Reaction TORADOL (KETOROLAC TROMETHAMINE) 11/16/2004 7 - Swelling Comments: itching CYMBALTA (DULOXETINE) 06/28/2017 1 - Mental Status Change Comments: confusion; nightmares; may have been due to also UTI, etc but will not try again REDUX 11/05/2016 1 - Mental Status Change Comments: nightmares ROZEREM (RAMELTEON) 06/20/2016 5 - Intolerance Comments: [place] paralyzed and gave her nightmares Date Reviewed: 11/28/2017 Reviewed by: Emilie Allan LPN - Fully Assessed Reason for Visit: Smokehouse Operator - Patient Initiated [[id number]] Prescriptions as of 12/13/2017 Sig: IRBESARTAN 300 MG TABLET TAKE 1 TABLET BY MOUTH ONCE D* CANAGLIFLOZIN 300 MG TABLET Take 1 tablet by mouth daily * OXYCODONE-ACETAMINOPHEN 7.5 M* Take 1 tablet by mouth twice * OXYCODONE-ACETAMINOPHEN 7.5 M* Take 1 tablet by mouth twice * OXYCODONE-ACETAMINOPHEN 7.5 M* Take 1 tablet by mouth twice * MELOXICAM 7.5 MG TABLET Take 7.5 mg by mouth once quinten* CLOTRIMAZOLE 2 % VAGINAL CREAM Use 1 Applicatorful vaginally* NYSTATIN 100,000 UNIT/GRAM TO* APPLY 1 APPLICATION TO AFFECT* ZOLPIDEM ER 12.5 MG TABLET,EX* Take 1 tablet by mouth daily * ATENOLOL 50 MG TABLET Take 1 tablet by mouth once d* CICLOPIROX 0.77 % TOPICAL CRE* Apply 1 application to affect* OXYCODONE-ACETAMINOPHEN 7.5 M* Take 1 tablet by mouth twice * DILTIAZEM SR 240 MG 24 HR CAP TAKE 1 CAPSULE BY MOUTH ONCE * ALPRAZOLAM 0.5 MG TABLET Take 1 tablet by mouth twice * ONDANSETRON 4 MG DISINTEGRATI* Take 1 tablet by mouth every * SITAGLIPTIN 100 MG TABLET Take 1 tablet by mouth once d* CHOLECALCIFEROL (VITAMIN D3) * Take 1 capsule by mouth twice* BUMETANIDE 0.5 MG TABLET Take 1 tablet by mouth once d* CODEINE 10 MG-GUAIFENESIN 100* Take 5 mL by mouth once daily* Patient not taking: Reported on 09/17/2017 CYANOCOBALAMIN (VIT B-12) 1,0* Inject 1 mL intramuscularly o* FLUTICASONE 50 MCG/ACTUATION * Use 2 Sprays in each nostril * BENZONATATE 100 MG CAPSULE Take 1 capsule by mouth three* Patient not taking: Reported on 09/17/2017 LANCETS Test blood sugar(s) once or t* PRAVASTATIN 20 MG TABLET Take 1 tablet by mouth daily * BLOOD SUGAR DIAGNOSTIC STRIPS Test blood sugar(s) once or t* ESTERIFIED ESTROGENS-METHYLTE* Take 1 tablet by mouth once d* Patient not taking: Reported on 09/17/2017 ALUMINUM HYDROX-MAGNESIUM CAR* Take 15 mL by mouth every 6 h* Patient not taking: Reported on 09/17/2017 ICOSAPENT ETHYL 1 GRAM CAPSULE Take by mouth. Problem List As Of Date 12/13/2017 Noted Resolved Primary osteoarthritis involving multiple joint*INVALID FOR* More... Obesity [E66.9] INVALID FOR* MYALGIA AND MYOSITIS NOS [[id number]] INVALID FOR* Chronic Pancreatitis [K86.1] INVALID FOR* Osteopenia [M85.80] INVALID FOR* More... Essential hypertension [I10] INVALID FOR* Hypertriglyceridemia [E78.1] INVALID FOR* Diabetes mellitus type II INVALID FOR*10/05/2013 Depression [F32.9] INVALID FOR* Atrial fibrillation [I48.91] INVALID FOR* Vitamin D deficiency [E55.9] INVALID FOR* Anxiety [F41.9] INVALID FOR* Controlled substance agreement signed [[id number]] INVALID FOR* Diabetes (HCC) [E11.9] INVALID FOR*08/14/2015 Stress and adjustment reaction [F43.29] INVALID FOR* Chronic abdominal pain [R10.9, G89.29] INVALID FOR* ADD (attention deficit disorder) without hypera*INVALID FOR* Hyperparathyroidism , secondary, non-renal (HCC*INVALID FOR* Hyperparathyroidism, primary (HCC) [E21.0] INVALID FOR* Encounter Status:Closed by MENDY PERES on 12/13/17 PROGRESS Observed: 11/28/2017 Status: COMPLETED Source: [place] 3:49 PM [facility] REPOSITORY HNO ID: [id number] Author: Moo Reaves Service: (none) Author Type: Physician Type: Progress Notes Filed: 12/14/2017 10:24 PM Note Text: Patient presents with: Recheck: Follow up SUBJECTIVE: Katherin Martin is a 77 year old year old lady here today for 3 month follow up appointment for review of medical conditions. Legs and feet swelling--not as bad as had been. Appetite up with depression--weight gained. Started taking half pill daily now with Bumex for swelling--resumed with the swelling. Ongoing stressors noted. Allowed to have time to vent her frustrations. Blood sugar not so well controlled but getting better. Glad to be working with PharmD so will be able to adjust meds so can lose weight. Further evaluation and treatment as indicated. PAST MEDICAL HISTORY Diagnosis Date - Abdominal pain, right upper quadrant 10/26/2005 - Abnormal ECG 11/27/2013 - Bicipital tenosynovitis 05/28/2005 - CARDIAC DYSRHYTHMIAS NEC 12/11/2004 - Decreased libido 11/21/2011 - Diverticulitis 12/18/13 - DIVERTICULITIS OF COLON W/O BLEED 12/11/2004 - Hyperparathyroidism , secondary, non-renal (HCC) 06/20/2016 - Incisional hernia 11/02/2013 - ISOLATED OR SPECIFIC PHOBIAS NEC 12/11/2004 - Left lower quadrant pain 11/02/2013 - LLQ pain 12/18/13 - Menopausal hot flushes 10/17/2011 - OBESITY NOS 12/11/2004 - OSTEOARTHROS NOS-OTHER SITE 12/11/2004 L knee arthritis - Other voice and resonance disorders 10/24/2011 - PEPTIC ULCER NOS 12/11/2004 - Transient disorder of initiating or maintaining sleep 02/14/2005 - Vaginal dryness, menopausal 10/17/2011 Current Outpatient Prescriptions: canagliflozin (INVOKANA) 300 mg tablet Take 1 tablet by mouth daily with breakfast. Clotrimazole 2 % crea Use 1 Applicatorful vaginally daily at bedtime. For vaginitis; May apply to external areas with yeast infection daily until rash or itching nystatin (MYCOSTATIN) powder APPLY 1 APPLICATION TO AFFECTED AREA THREE TIMES DAILY. DIRECTED FOR TREATMENT OF YEAST INFECTION Zolpidem (AMBIEN CR) 12.5 mg CR tablet Take 1 tablet by mouth daily at bedtime for 180 days. atenolol (TENORMIN) 50 mg tablet Take 1 tablet by mouth once daily. ciclopirox (LOPROX) 0.77 % cream Apply 1 application to affected area twice daily. oxyCODONE-acetaminophen (PERCOCET) 7.5-325 mg tablet Take 1 tablet by mouth twice daily as needed for up to 30 days. For severe pain.Earliest Fill Date: 10/30/17 [START ON 11/29/2017] oxyCODONE-acetaminophen (PERCOCET) 7.5- 325 mg tablet Take 1 tablet by mouth twice daily as needed for up to 30 days. For severe pain.Earliest Fill Date: 11/29/17 diltiazem CD (CARDIZEM CD, CARTIA XT) 240 mg 24 hr capsule TAKE 1 CAPSULE BY MOUTH ONCE DAILY. ALPRAZolam (XANAX) 0.5 mg tablet Take 1 tablet by mouth twice daily for 90 days. ondansetron orally disintegrating (ZOFRAN ODT) 4 mg disintegrating tablet Take 1 tablet by mouth every 6 hours as needed. sitaGLIPtin (JANUVIA) 100 mg tablet Take 1 tablet by mouth once daily. cholecalciferol, Vitamin D3, (VITAMIN D3) 50,000 unit cap capsule Take 1 capsule by mouth twice a week. bumetanide (BUMEX) 0.5 mg tablet Take 1 tablet by mouth once daily as needed. As directed for swelling cyanocobalamin 1,000 mcg/mL soln Inject 1 mL intramuscularly once every month. fluticasone (FLONASE) 50 mcg/actuation nasal spray Use 2 Sprays in each nostril once daily. Rinse mouth after use. Lancets lancets Test blood sugar(s) once or twice daily. Dx: E11.9. Med: Invokana. One touch meter. pravastatin (PRAVACHOL) 20 mg tablet Take 1 tablet by mouth daily at bedtime. irbesartan (AVAPRO) 300 mg tablet Take 1 tablet by mouth once daily. blood sugar diagnostic (BLOOD GLUCOSE TEST) test strip Test blood sugar(s) once or twice daily. Dx: E11.9. Med: Invokana. One touch meter. oxyCODONE-acetaminophen (PERCOCET) 7.5-325 mg tablet Take 1 tablet by mouth twice daily as needed for up to 30 days. For severe pain.Earliest Fill Date: 09/30/17 codeine-guaiFENesin (GUAIFENESIN AC) 10-100 mg/5 mL syrup Take 5 mL by mouth once daily as needed for up to 90 days. (Patient not taking: Reported on 09/17/2017 ) benzonatate (TESSALON PERLE) 100 mg capsule Take 1 capsule by mouth three times daily as needed. (Patient not taking: Reported on 09/17/2017 ) esterified estrogens-methylTESTOSTERone (ESTRATEST HS) 0.625- 1.25 mg per tablet Take 1 tablet by mouth once daily. (Patient not taking: Reported on 09/17/2017 ) aluminum hydrox-magnesium carb (GAVISCON) 95-358 mg/15 mL suspension Take 15 mL by mouth every 6 hours as needed. (Patient not taking: Reported on 09/17/2017 ) icosapent ethyl (VASCEPA) 1 gram cap Take by mouth. No current facility-administered medications for this visit. OBJECTIVE: BP 128/84 Pulse 74 Resp 18 Wt 106.3 kg (234 lb 6.4 oz) BMI 41.52 kg/m? Patient is alert, oriented times 3, no apparent distress, affect is bright, reactive. Heart: Regular rate, rhythm, no murmurs, gallops, rubs. Lungs: Clear to auscultation, bilaterally, breathing non labored. Ext: No cyanosis, clubbing; bilateral lower extremities edema. Component Latest Ref Rng AND Units 11/14/2017 WBC 3.70 - 11.00 k/uL 7.38 RBC 3.90 - 5.20 m/uL 5.18 Hemoglobin 11.5 - 15.5 g/dL 15.7 (H) Hematocrit 36.0 - 46.0 % 47.3 (H) MCV 80.0 - 100.0 fL 91.3 MCH 26.0 - 34.0 pG 30.3 MCHC 30.5 - 36.0 g/dL 33.2 RDW-CV 11.5 - 15.0 % 14.2 Platelet Count 150 - 400 k/uL 150 MPV 9.0 - 12.7 fL 10.9 Neut% % 62.2 Abs Neut (ANC) 1.45 - 7.50 k/uL 4.59 Lymph% % 29.8 Abs Lymph 1.00 - 4.00 k/uL 2.20 [place]% % 7.3 Abs [place] <0.87 k/uL 0.54 Eosin% % 0.3 Abs Eosin <0.46 k/uL <0.03 Baso% % 0.4 Abs Baso <0.11 k/uL 0.03 Nucleated Reds 0 /100 WBC 0.0 Absolute nRBC <0.01 k/uL <0.01 Diff Type Auto Diff Protein, Total 6.3 - 8.0 g/dL 7.0 Albumin 3.9 - 4.9 g/dL 4.0 Calcium 8.5 - 10.2 mg/dL 10.5 (H) Bilirubin, Total 0.2 - 1.3 mg/dL 0.3 Alkaline Phosphatase 34 - 123 U/L 70 AST 13 - 35 U/L 19 Glucose 74 - 99 mg/dL 163 (H) BUN 7 - 21 mg/dL 17 Creatinine 0.58 - 0.96 mg/dL 0.62 Sodium 136 - 144 mmol/L 138 Potassium 3.7 - 5.1 mmol/L 4.5 Chloride 97 - 105 mmol/L 102 CO2 22 - 30 mmol/L 22 Anion Gap 9 - 18 mmol/L 14 ALT 7 - 38 U/L 18 eGFR- >60 eGFR-All Other Races . >60 Creatinine, Ur Random (UCRR) 20 - 300 mg/dL 33.0 Albumin, Urine Random 0.0 - 23.0 mg/L <12.0 Albumin/Creat Ratio 0 - 30 mg/g Not calculated Hemoglobin A1C 4.3 - 5.6 % 8.2 (H) Estimated Average Glucose mg/dL 189 TSH 0.400 - 5.500 uU/mL 1.590 Free T3 2.3 - 4.1 pg/mL 2.7 Free T4 0.9 - 1.7 ng/dL 1.3 PTH, Intact 15 - 65 pg/mL 61 SPINE LUMBAR (ROUTINE) Observed: 11/15/2017 4:03 PM Status: F Source: [facility] REPOSITORY [facility] Imaging Services [address] [place] [address] Spine Lumbar (Routine) MR#: [id number] Acct: [id number] Name: KATHERIN MARTIN Rep #: [id number] : 1940 F 76 From: Krish Waddell MD PCP: Moo Reaves MD Status: REG CLI Study: Spine Lumbar (Routine) Date of Exam: 11/15/17 Exam# [id number] Ordering Dr: Monica Gutierrez MD STUDY: MRI LUMBAR SPINE WITHOUT CONTRAST REASON FOR EXAM: Female, 76 years old. Low back pain TECHNIQUE: Standardized fat and water weighted pulse sequences were obtained in the sagittal and axial planes. COMPARISON: None FINDINGS: There is normal alignment and curvature of the lumbosacral spine with no acute fractures or dislocations and no abnormal infiltrative processes. The disc spaces are all narrowed except at L3-4 and L4-5. The conus medullaris terminates at the L1-L2 level. T12-L1: Normal endplates. Normal disc height, hydration and morphology. Normal bilateral facet joints. Normal central canal and bilateral lateral recesses. Normal bilateral intervertebral neural foramina. L1-2: Disc space narrowing with small marginal osteophytes. No focal disc protrusion or extrusion. Mild degenerative changes of the facet joint. L2-3: Disc space narrowing with small spurs from the vertebral body endplates. No focal disc protrusion or extrusion. There are minimal degenerative changes of the facet joints. L3-4: Normal endplates. Normal disc height, hydration and morphology. Degenerative changes of the facet joints with moderate central canal stenosis or occlusive hypertrophy of the ligamentum flavum. No focal disc protrusion or extrusion.. Normal central canal and bilateral lateral recesses. Normal bilateral intervertebral neural foramina. L4-5: Mild concentric disc bulging. No focal disc protrusion or extrusion L5-S1: Disc space narrowing with small marginal osteophytes. No focal disc protrusion or extrusion. The facet joints are normal MRI/Spine Lumbar (Routine) IMPRESSION: Multilevel intervertebral osteochondrosis. No focal disc protrusion or extrusion. Electronically Signed: Krish Waddell MD at 4:19 EDT Tel , Service support , CC: Monica Gutierrez MD; Moo Reaves MD [employer] Specialist: Signed ASSESSMENT AND PLAN: Encounter Diagnosis ICD-10-CM 1. Primary osteoarthritis involving multiple joints M15.0 oxyCODONE-acetaminophen (PERCOCET) 7.5-325 mg tablet oxyCODONE-acetaminophen (PERCOCET) 7.5-325 mg tablet oxyCODONE-acetaminophen (PERCOCET) 7.5-325 mg tablet 2. DDD (degenerative disc disease), lumbosacral M51.37 meloxicam (MOBIC) 7.5 mg tablet 3. Facet arthropathy M47.819 meloxicam (MOBIC) 7.5 mg tablet 4. Hyperparathyroidism, primary (HCC) E21.0 5. Recurrent major depressive disorder, in partial remission (HCC) F33.41 6. Type 2 diabetes mellitus without complication, without long-term current use of insulin (HCC) E11.9 7. Edema of both legs R60.0 . Above issues addressed with patient. Patient involved in shared decision making for management of medical issues. History and medications reviewed. Epic updated as needed Refills taken care of and meds adjusted as indicated after reviewed history, exam and labs. Health Maintenance reviewed. Updated record and/or ordered tests as recorded. Encouraged on efforts at healthy diet and regular exercise and adequate sleep. Needs to keep working on diet and exercise with lifestyle changes for effective weight loss as well as control of DM, and control of BP and lipids. Stable with pain control. No signs of diversion or abuse of medication(s); no adverse effects. Continue present management. PDMP website checked and validated. All prescriptions have been APPROPRIATELY filled. No suspicious activity was identified. 11/28/2017 by Moo Reaves MD Will continue follow up with PharmD so can keep working on better glycemic control. Doing okay on Bumex for edema and fluid retention in legs. The majority of the visit was spent counseling and/or coordinating care for the patient. Avyo-bh-mdrf time was at least 25 minutes. Moo Reaves MD CNOV Observed: 11/28/2017 Status: COMPLETED Source: [facility] 3:40 PM [facility] Office Visit (INTMWS) KATHERIN MARTIN ([id number]) 1940 F Date Time Provider Department 11/28/17 3:40 PM MOO REAVES INTMWS During your visit today, we recorded the following information about you: Pulse Respiration Blood pressure Weight 74/minute 18/minute 128/84 106.3 kg Moo Reaves MD 12/14/2017 10:24 PM Signed Patient presents with: Recheck: Follow up SUBJECTIVE: Katherin Martin is a 77 year old year old lady here today for 3 month follow up appointment for review of medical conditions. Legs and feet swelling--not as bad as had been. Appetite up with depression--weight gained. Started taking half pill daily now with Bumex for swelling--resumed with the swelling. Ongoing stressors noted. Allowed to have time to vent her frustrations. Blood sugar not so well controlled but getting better. Glad to be working with PharmD so will be able to adjust meds so can lose weight. Further evaluation and treatment as indicated. PAST MEDICAL HISTORY Diagnosis Date - Abdominal pain, right upper quadrant 10/26/2005 - Abnormal ECG 11/27/2013 - Bicipital tenosynovitis 05/28/2005 - CARDIAC DYSRHYTHMIAS NEC 12/11/2004 - Decreased libido 11/21/2011 - Diverticulitis 12/18/13 - DIVERTICULITIS OF COLON W/O BLEED 12/11/2004 - Hyperparathyroidism , secondary, non-renal (HCC) 06/20/2016 - Incisional hernia 11/02/2013 - ISOLATED OR SPECIFIC PHOBIAS NEC 12/11/2004 - Left lower quadrant pain 11/02/2013 - LLQ pain 12/18/13 - Menopausal hot flushes 10/17/2011 - OBESITY NOS 12/11/2004 - OSTEOARTHROS NOS-OTHER SITE 12/11/2004 L knee arthritis - Other voice and resonance disorders 10/24/2011 - PEPTIC ULCER NOS 12/11/2004 - Transient disorder of initiating or maintaining sleep 02/14/2005 - Vaginal dryness, menopausal 10/17/2011 Current Outpatient Prescriptions: canagliflozin (INVOKANA) 300 mg tablet Take 1 tablet by mouth daily with breakfast. Clotrimazole 2 % crea Use 1 Applicatorful vaginally daily at bedtime. For vaginitis; May apply to external areas with yeast infection daily until rash or itching nystatin (MYCOSTATIN) powder APPLY 1 APPLICATION TO AFFECTED AREA THREE TIMES DAILY. DIRECTED FOR TREATMENT OF YEAST INFECTION Zolpidem (AMBIEN CR) 12.5 mg CR tablet Take 1 tablet by mouth daily at bedtime for 180 days. atenolol (TENORMIN) 50 mg tablet Take 1 tablet by mouth once daily. ciclopirox (LOPROX) 0.77 % cream Apply 1 application to affected area twice daily. oxyCODONE-acetaminophen (PERCOCET) 7.5-325 mg tablet Take 1 tablet by mouth twice daily as needed for up to 30 days. For severe pain.Earliest Fill Date: 10/30/17 [START ON 11/29/2017] oxyCODONE-acetaminophen (PERCOCET) 7.5- 325 mg tablet Take 1 tablet by mouth twice daily as needed for up to 30 days. For severe pain.Earliest Fill Date: 11/29/17 diltiazem CD (CARDIZEM CD, CARTIA XT) 240 mg 24 hr capsule TAKE 1 CAPSULE BY MOUTH ONCE DAILY. ALPRAZolam (XANAX) 0.5 mg tablet Take 1 tablet by mouth twice daily for 90 days. ondansetron orally disintegrating (ZOFRAN ODT) 4 mg disintegrating tablet Take 1 tablet by mouth every 6 hours as needed. sitaGLIPtin (JANUVIA) 100 mg tablet Take 1 tablet by mouth once daily. cholecalciferol, Vitamin D3, (VITAMIN D3) 50,000 unit cap capsule Take 1 capsule by mouth twice a week. bumetanide (BUMEX) 0.5 mg tablet Take 1 tablet by mouth once daily as needed. As directed for swelling cyanocobalamin 1,000 mcg/mL soln Inject 1 mL intramuscularly once every month. fluticasone (FLONASE) 50 mcg/actuation nasal spray Use 2 Sprays in each nostril once daily. Rinse mouth after use. Lancets lancets Test blood sugar(s) once or twice daily. Dx: E11.9. Med: Invokana. One touch meter. pravastatin (PRAVACHOL) 20 mg tablet Take 1 tablet by mouth daily at bedtime. irbesartan (AVAPRO) 300 mg tablet Take 1 tablet by mouth once daily. blood sugar diagnostic (BLOOD GLUCOSE TEST) test strip Test blood sugar(s) once or twice daily. Dx: E11.9. Med: Invokana. One touch meter. oxyCODONE-acetaminophen (PERCOCET) 7.5-325 mg tablet Take 1 tablet by mouth twice daily as needed for up to 30 days. For severe pain.Earliest Fill Date: 09/30/17 codeine-guaiFENesin (GUAIFENESIN AC) 10-100 mg/5 mL syrup Take 5 mL by mouth once daily as needed for up to 90 days. (Patient not taking: Reported on 09/17/2017 ) benzonatate (TESSALON PERLE) 100 mg capsule Take 1 capsule by mouth three times daily as needed. (Patient not taking: Reported on 09/17/2017 ) esterified estrogens-methylTESTOSTERone (ESTRATEST HS) 0.625- 1.25 mg per tablet Take 1 tablet by mouth once daily. (Patient not taking: Reported on 09/17/2017 ) aluminum hydrox-magnesium carb (GAVISCON) 95-358 mg/15 mL suspension Take 15 mL by mouth every 6 hours as needed. (Patient not taking: Reported on 09/17/2017 ) icosapent ethyl (VASCEPA) 1 gram cap Take by mouth. No current facility-administered medications for this visit. OBJECTIVE: BP 128/84 Pulse 74 Resp 18 Wt 106.3 kg (234 lb 6.4 oz) BMI 41.52 kg/m? Patient is alert, oriented times 3, no apparent distress, affect is bright, reactive. Heart: Regular rate, rhythm, no murmurs, gallops, rubs. Lungs: Clear to auscultation, bilaterally, breathing non labored. Ext: No cyanosis, clubbing; bilateral lower extremities edema. Component Latest Ref Rng AND Units 11/14/2017 WBC 3.70 - 11.00 k/uL 7.38 RBC 3.90 - 5.20 m/uL 5.18 Hemoglobin 11.5 - 15.5 g/dL 15.7 (H) Hematocrit 36.0 - 46.0 % 47.3 (H) MCV 80.0 - 100.0 fL 91.3 MCH 26.0 - 34.0 pG 30.3 MCHC 30.5 - 36.0 g/dL 33.2 RDW-CV 11.5 - 15.0 % 14.2 Platelet Count 150 - 400 k/uL 150 MPV 9.0 - 12.7 fL 10.9 Neut% % 62.2 Abs Neut (ANC) 1.45 - 7.50 k/uL 4.59 Lymph% % 29.8 Abs Lymph 1.00 - 4.00 k/uL 2.20 [place]% % 7.3 Abs [place] <0.87 k/uL 0.54 Eosin% % 0.3 Abs Eosin <0.46 k/uL <0.03 Baso% % 0.4 Abs Baso <0.11 k/uL 0.03 Nucleated Reds 0 /100 WBC 0.0 Absolute nRBC <0.01 k/uL <0.01 Diff Type Auto Diff Protein, Total 6.3 - 8.0 g/dL 7.0 Albumin 3.9 - 4.9 g/dL 4.0 Calcium 8.5 - 10.2 mg/dL 10.5 (H) Bilirubin, Total 0.2 - 1.3 mg/dL 0.3 Alkaline Phosphatase 34 - 123 U/L 70 AST 13 - 35 U/L 19 Glucose 74 - 99 mg/dL 163 (H) BUN 7 - 21 mg/dL 17 Creatinine 0.58 - 0.96 mg/dL 0.62 Sodium 136 - 144 mmol/L 138 Potassium 3.7 - 5.1 mmol/L 4.5 Chloride 97 - 105 mmol/L 102 CO2 22 - 30 mmol/L 22 Anion Gap 9 - 18 mmol/L 14 ALT 7 - 38 U/L 18 eGFR- >60 eGFR-All Other Races . >60 Creatinine, Ur Random (UCRR) 20 - 300 mg/dL 33.0 Albumin, Urine Random 0.0 - 23.0 mg/L <12.0 Albumin/Creat Ratio 0 - 30 mg/g Not calculated Hemoglobin A1C 4.3 - 5.6 % 8.2 (H) Estimated Average Glucose mg/dL 189 TSH 0.400 - 5.500 uU/mL 1.590 Free T3 2.3 - 4.1 pg/mL 2.7 Free T4 0.9 - 1.7 ng/dL 1.3 PTH, Intact 15 - 65 pg/mL 61 SPINE LUMBAR (ROUTINE) Observed: 11/15/2017 4:03 PM Status: F Source: [facility] REPOSITORY [facility] Imaging Services [address] [address] Spine Lumbar (Routine) MR#: [id number] Acct: [id number] Name: KATHERIN MARTIN Rep #: [id number] : 1940 F 76 From: Krish Colon MD PCP: JeanP aul KEE,Moo Status: REG CLI Study: Spine Lumbar (Routine) Date of Exam: 11/15/17 Exam# [id number] Ordering Dr: Monica Gutierrez MD STUDY: MRI LUMBAR SPINE WITHOUT CONTRAST REASON FOR EXAM: Female, 76 years old. Low back pain TECHNIQUE: Standardized fat and water weighted pulse sequences were obtained in the sagittal and axial planes. COMPARISON: None FINDINGS: There is normal alignment and curvature of the lumbosacral spine with no acute fractures or dislocations and no abnormal infiltrative processes. The disc spaces are all narrowed except at L3-4 and L4-5. The conus medullaris terminates at the L1-L2 level. T12-L1: Normal endplates. Normal disc height, hydration and morphology. Normal bilateral facet joints. Normal central canal and bilateral lateral recesses. Normal bilateral intervertebral neural foramina. L1-2: Disc space narrowing with small marginal osteophytes. No focal disc protrusion or extrusion. Mild degenerative changes of the facet joint. L2-3: Disc space narrowing with small spurs from the vertebral body endplates. No focal disc protrusion or extrusion. There are minimal degenerative changes of the facet joints. L3-4: Normal endplates. Normal disc height, hydration and morphology. Degenerative changes of the facet joints with moderate central canal stenosis or occlusive hypertrophy of the ligamentum flavum. No focal disc protrusion or extrusion.. Normal central canal and bilateral lateral recesses. Normal bilateral intervertebral neural foramina. L4-5: Mild concentric disc bulging. No focal disc protrusion or extrusion L5-S1: Disc space narrowing with small marginal osteophytes. No focal disc protrusion or extrusion. The facet joints are normal MRI/Spine Lumbar (Routine) IMPRESSION: Multilevel intervertebral osteochondrosis. No focal disc protrusion or extrusion. Electronically Signed: Krish Colon MD at 4:19 EDT Tel , Service support , CC: Monica Gutierrez MD; Moo Reaves MD [employer] Specialist: Signed ASSESSMENT AND PLAN: Encounter Diagnosis ICD-10-CM 1. Primary osteoarthritis involving multiple joints M15.0 oxyCODONE-acetaminophen (PERCOCET) 7.5-325 mg tablet oxyCODONE-acetaminophen (PERCOCET) 7.5-325 mg tablet oxyCODONE-acetaminophen (PERCOCET) 7.5-325 mg tablet 2. DDD (degenerative disc disease), lumbosacral M51.37 meloxicam (MOBIC) 7.5 mg tablet 3. Facet arthropathy M47.819 meloxicam (MOBIC) 7.5 mg tablet 4. Hyperparathyroidism, primary (HCC) E21.0 5. Recurrent major depressive disorder, in partial remission (HCC) F33.41 6. Type 2 diabetes mellitus without complication, without long-term current use of insulin (HCC) E11.9 7. Edema of both legs R60.0 . Above issues addressed with patient. Patient involved in shared decision making for management of medical issues. History and medications reviewed. Epic updated as needed Refills taken care of and meds adjusted as indicated after reviewed history, exam and labs. Health Maintenance reviewed. Updated record and/or ordered tests as recorded. Encouraged on efforts at healthy diet and regular exercise and adequate sleep. Needs to keep working on diet and exercise with lifestyle changes for effective weight loss as well as control of DM, and control of BP and lipids. Stable with pain control. No signs of diversion or abuse of medication(s); no adverse effects. Continue present management. PDMP website checked and validated. All prescriptions have been APPROPRIATELY filled. No suspicious activity was identified. 11/28/2017 by Moo Reaves MD Will continue follow up with PharmD so can keep working on better glycemic control. Doing okay on Bumex for edema and fluid retention in legs. The majority of the visit was spent counseling and/or coordinating care for the patient. Defa-zs-ecnw time was at least 25 minutes. MD Moo Zepeda MD 11/28/2017 3:56 PM Signed SPINE LUMBAR (ROUTINE) Observed: 11/15/2017 4:03 PM Status: F Source: [facility] REPOSITORY [facility] Imaging Services [address] [place] [address] Spine Lumbar (Routine) MR#: [id number] Acct: [id number] Name: KATHERIN MARTIN Rep #: [id number] : 1940 F 76 From: Krish Colon MD PCP: Moo Reaves MD Status: REG CLI Study: Spine Lumbar (Routine) Date of Exam: 11/15/17 Exam# [id number] Ordering Dr: Monica Gutierrez MD STUDY: MRI LUMBAR SPINE WITHOUT CONTRAST REASON FOR EXAM: Female, 76 years old. Low back pain TECHNIQUE: Standardized fat and water weighted pulse sequences were obtained in the sagittal and axial planes. COMPARISON: None FINDINGS: There is normal alignment and curvature of the lumbosacral spine with no acute fractures or dislocations and no abnormal infiltrative processes. The disc spaces are all narrowed except at L3-4 and L4-5. The conus medullaris terminates at the L1-L2 level. T12-L1: Normal endplates. Normal disc height, hydration and morphology. Normal bilateral facet joints. Normal central canal and bilateral lateral recesses. Normal bilateral intervertebral neural foramina. L1-2: Disc space narrowing with small marginal osteophytes. No focal disc protrusion or extrusion. Mild degenerative changes of the facet joint. L2-3: Disc space narrowing with small spurs from the vertebral body endplates. No focal disc protrusion or extrusion. There are minimal degenerative changes of the facet joints. L3-4: Normal endplates. Normal disc height, hydration and morphology. Degenerative changes of the facet joints with moderate central canal stenosis or occlusive hypertrophy of the ligamentum flavum. No focal disc protrusion or extrusion.. Normal central canal and bilateral lateral recesses. Normal bilateral intervertebral neural foramina. L4-5: Mild concentric disc bulging. No focal disc protrusion or extrusion L5-S1: Disc space narrowing with small marginal osteophytes. No focal disc protrusion or extrusion. The facet joints are normal MRI/Spine Lumbar (Routine) IMPRESSION: Multilevel intervertebral osteochondrosis. No focal disc protrusion or extrusion. Electronically Signed: Krish Colon MD at 4:19 EDT Tel , Service support , CC: Monica Gutierrez MD; Moo Reaves MD [employer] Controls Specialist: Signed Referring Provider: MOO REAVES [[id number]] Allergies As of Date: 11/28/2017 Noted Allergy Reaction TORADOL (KETOROLAC TROMETHAMINE) 11/16/2004 7 - Swelling Comments: itching CYMBALTA (DULOXETINE) 06/28/2017 1 - Mental Status Change Comments: confusion; nightmares; may have been due to also UTI, etc but will not try again REDUX 11/05/2016 1 - Mental Status Change Comments: nightmares ROZEREM (RAMELTEON) 06/20/2016 5 - Intolerance Comments: [place] paralyzed and gave her nightmares Date Reviewed: 11/28/2017 Reviewed by: Emilie Allan LPN - Fully Assessed Reason for Visit: Recheck [92] Cmt: Follow up Primary Visit Diagnosis:Primary osteoarthritis involving multiple joints [M15.0] Other Visit Diagnoses:DDD (degenerative disc disease), lumbosacral [M51.37] Facet arthropathy [M47.819] Hyperparathyroidism, primary (HCC) [E21.0] Recurrent major depressive disorder, in partial remission (HCC) [F33.41] Type 2 diabetes mellitus without complication, without long-term current use of insulin (HCC) [E11.9] Edema of both legs [R60.0] Depression, unspecified depression type [F32.9] Order(s):[START ON 12/29/2017] oxyCODONE-acetaminophen (PERCOCET) 7.5-325 mg tabletTake 1 tablet by mouth twice daily as needed for up to 30 days. For severe pain. Earliest Fill Date: 12/29/17Disp: 60 tabletRfl: 0 [START ON 01/28/2018] oxyCODONE-acetaminophen (PERCOCET) 7.5-325 mg tabletTake 1 tablet by mouth twice daily as needed for up to 30 days. For severe pain. Earliest Fill Date: 01/28/18Disp: 60 tabletRfl: 0 [START ON 02/27/2018] oxyCODONE-acetaminophen (PERCOCET) 7.5-325 mg tabletTake 1 tablet by mouth twice daily as needed for up to 30 days. For severe pain. Earliest Fill Date: 02/27/18Disp: 60 tabletRfl: 0 Prescriptions as of 11/28/2017 Sig: CANAGLIFLOZIN 300 MG TABLET Take 1 tablet by mouth daily * OXYCODONE-ACETAMINOPHEN 7.5 M* Take 1 tablet by mouth twice * OXYCODONE-ACETAMINOPHEN 7.5 M* Take 1 tablet by mouth twice * OXYCODONE-ACETAMINOPHEN 7.5 M* Take 1 tablet by mouth twice * CLOTRIMAZOLE 2 % VAGINAL CREAM Use 1 Applicatorful vaginally* NYSTATIN 100,000 UNIT/GRAM TO* APPLY 1 APPLICATION TO AFFECT* ZOLPIDEM ER 12.5 MG TABLET,EX* Take 1 tablet by mouth daily * ATENOLOL 50 MG TABLET Take 1 tablet by mouth once d* CICLOPIROX 0.77 % TOPICAL CRE* Apply 1 application to affect* OXYCODONE-ACETAMINOPHEN 7.5 M* Take 1 tablet by mouth twice * DILTIAZEM SR 240 MG 24 HR CAP TAKE 1 CAPSULE BY MOUTH ONCE * ALPRAZOLAM 0.5 MG TABLET Take 1 tablet by mouth twice * ONDANSETRON 4 MG DISINTEGRATI* Take 1 tablet by mouth every * SITAGLIPTIN 100 MG TABLET Take 1 tablet by mouth once d* CHOLECALCIFEROL (VITAMIN D3) * Take 1 capsule by mouth twice* BUMETANIDE 0.5 MG TABLET Take 1 tablet by mouth once d* CYANOCOBALAMIN (VIT B-12) 1,0* Inject 1 mL intramuscularly o* FLUTICASONE 50 MCG/ACTUATION * Use 2 Sprays in each nostril * LANCETS Test blood sugar(s) once or t* PRAVASTATIN 20 MG TABLET Take 1 tablet by mouth daily * X IRBESARTAN 300 MG TABLET Take 1 tablet by mouth once d* BLOOD SUGAR DIAGNOSTIC STRIPS Test blood sugar(s) once or t* MELOXICAM 7.5 MG TABLET Take 7.5 mg by mouth once quinten* CODEINE 10 MG-GUAIFENESIN 100* Take 5 mL by mouth once daily* Patient not taking: Reported on 09/17/2017 BENZONATATE 100 MG CAPSULE Take 1 capsule by mouth three* Patient not taking: Reported on 09/17/2017 ESTERIFIED ESTROGENS-METHYLTE* Take 1 tablet by mouth once d* Patient not taking: Reported on 09/17/2017 ALUMINUM HYDROX-MAGNESIUM CAR* Take 15 mL by mouth every 6 h* Patient not taking: Reported on 09/17/2017 ICOSAPENT ETHYL 1 GRAM CAPSULE Take by mouth. Problem List As Of Date 11/28/2017 Noted Resolved Primary osteoarthritis involving multiple joint*INVALID FOR* More... Obesity [E66.9] INVALID FOR* MYALGIA AND MYOSITIS NOS [CEI3249] INVALID FOR* Chronic Pancreatitis [K86.1] INVALID FOR* Osteopenia [M85.80] INVALID FOR* More... Essential hypertension [I10] INVALID FOR* Hypertriglyceridemia [E78.1] INVALID FOR* Diabetes mellitus type II INVALID FOR*10/05/2013 Depression [F32.9] INVALID FOR* Atrial fibrillation [I48.91] INVALID FOR* Vitamin D deficiency [E55.9] INVALID FOR* Anxiety [F41.9] INVALID FOR* Controlled substance agreement signed [Z79.799] INVALID FOR* Diabetes (HCC) [E11.9] INVALID FOR*08/14/2015 Stress and adjustment reaction [F43.29] INVALID FOR* Chronic abdominal pain [R10.9, G89.29] INVALID FOR* ADD (attention deficit disorder) without hypera*INVALID FOR* Hyperparathyroidism , secondary, non-renal (HCC*INVALID FOR* Hyperparathyroidism, primary (HCC) [E21.0] INVALID FOR* Other instructions from your clinician: SPINE LUMBAR (ROUTINE) Observed: 11/15/2017 4:03 PM Status: F Source: [facility] REPOSITORY [facility] Imaging Services [address] [place] [address] Spine Lumbar (Routine) MR#: [id number] Acct: [id number] Name: KATHERIN MARTIN Rep #: [id number] : 1940 F 76 From: Krish Waddell MD PCP: Moo Reaves MD Status: REG CLI Study: Spine Lumbar (Routine) Date of Exam: 11/15/17 Exam# [id number] Ordering Dr: Monica Gutierrez MD STUDY: MRI LUMBAR SPINE WITHOUT CONTRAST REASON FOR EXAM: Female, 76 years old. Low back pain TECHNIQUE: Standardized fat and water weighted pulse sequences were obtained in the sagittal and axial planes. COMPARISON: None FINDINGS: There is normal alignment and curvature of the lumbosacral spine with no acute fractures or dislocations and no abnormal infiltrative processes. The disc spaces are all narrowed except at L3-4 and L4-5. The conus medullaris terminates at the L1-L2 level. T12-L1: Normal endplates. Normal disc height, hydration and morphology. Normal bilateral facet joints. Normal central canal and bilateral lateral recesses. Normal bilateral intervertebral neural foramina. L1-2: Disc space narrowing with small marginal osteophytes. No focal disc protrusion or extrusion. Mild degenerative changes of the facet joint. L2-3: Disc space narrowing with small spurs from the vertebral body endplates. No focal disc protrusion or extrusion. There are minimal degenerative changes of the facet joints. L3-4: Normal endplates. Normal disc height, hydration and morphology. Degenerative changes of the facet joints with moderate central canal stenosis or occlusive hypertrophy of the ligamentum flavum. No focal disc protrusion or extrusion.. Normal central canal and bilateral lateral recesses. Normal bilateral intervertebral neural foramina. L4-5: Mild concentric disc bulging. No focal disc protrusion or extrusion L5-S1: Disc space narrowing with small marginal osteophytes. No focal disc protrusion or extrusion. The facet joints are normal MRI/Spine Lumbar (Routine) IMPRESSION: Multilevel intervertebral osteochondrosis. No focal disc protrusion or extrusion. Electronically Signed: Krish Waddell MD at 4:19 EDT Tel , Service support , CC: Monica Gutierrez MD; Moo Reaves MD Automation Controls Specialist: Signed Prescriptions ordered this encounter Disp Refills Start End OXYCODONE-ACETAMINOPHEN 7.5 MG-325 M* 60 t* 0 12/29/2017 01/28/2018 Class: Print RX Route: ORAL Sig: Take 1 tablet by mouth twice daily as needed for up to 30 days. For severe pain. Earliest Fill Date: 12/29/17 OXYCODONE-ACETAMINOPHEN 7.5 MG-325 M* 60 t* 0 01/28/2018 02/27/2018 Class: Print RX Route: ORAL Sig: Take 1 tablet by mouth twice daily as needed for up to 30 days. For severe pain. Earliest Fill Date: 01/28/18 OXYCODONE-ACETAMINOPHEN 7.5 MG-325 M* 60 t* 0 02/27/2018 03/29/2018 Class: Print RX Route: ORAL Sig: Take 1 tablet by mouth twice daily as needed for up to 30 days. For severe pain. Earliest Fill Date: 02/27/18 Medications Discontinued During This Encounter oxyCODONE-acetaminophen (PERCOCET) 7* 60 t* 0 10/30/2017 11/28/2017 Class: Print RX Route: ORAL Sig: Take 1 tablet by mouth twice daily as needed for up to 30 days. For severe pain. Earliest Fill Date: 10/30/17 Disc: Reason for discontinue is not on file. oxyCODONE-acetaminophen (PERCOCET) 7* 60 t* 0 09/30/2017 11/28/2017 Class: Print RX Route: ORAL Sig: Take 1 tablet by mouth twice daily as needed for up to 30 days. For severe pain. Earliest Fill Date: 09/30/17 Disc: Reason for discontinue is not on file. Disposition: Return for Add the next 3 month one on one; also add DM SMA. Follow-up and Disposition History Recorded Encounter Status:Closed by MOO REAVES MD on 12/14/17 PROGRESS Observed: 11/28/2017 Status: COMPLETED Source: [facility] 2:00 PM [facility] [place] REPOSITORY HNO ID: [id number] Author: Abdirashid Malone (Pharmacist) Service: (none) Author Type: Pharmacist Type: Progress Notes Filed: 11/29/2017 9:40 AM Note Text: Patient consents to pharmacy collaborative practice agreement. REASON FOR CONSULT: DM GOALS: A1c < 8% CONSULTING PROVIDER: Dr. Reaves Date of Consult: 11/14/17 Katherin Martin is a 77 year old female was last seen by PCP, Dr. Moo Reaves MD on 11/14 for an SMA. Subjective: Patient is presenting today for initial pharmacotherapy management appointment for diabetes. INTERIM HISTORY: Reports not liking empagliflozin Experienced a yeast injection several weeks ago Reports increased hunger and weight gain which she associates with empagliflozin Says she wants to go back to canagliflozin; reports was on it previously and she liked it much more Patient also really wants to get off of sitagliptin - unexplained reasons Reports having some memory problems which frustrates her Reports she was very depressed after her a few years ago Had recent tragedy this year - in March, step-daughter committed suicide, patient reports guilt because she says she should have been there Patient teared up in office Past DM medications: Metformin - discontinued for unknown reasons Current DM Medications: Empagliflozin 25mg daily Sitagliptin 100mg daily Current HTN Medications: Diltiazem CD 240mg daily Bumetanide 0.5mg daily PRN swelling Irbesartan 300mg daily Atenolol 50mg daily Preventative Medications: ? On CHAS/ARB: Yes ? On Statin: Yes ? On ASA: No ROS: ? Patient denies CP, SOB, BISWAS, blurred vision, dizziness or lightheadedness ? Patient denies symptoms of hypoglycemia (sweating, anxiety, palpitations, hunger, and tremor) ? Patient denies symptoms of hyperglycemia (polyuria, polydipsia, polyphagia) ? Patient denies potential medication adverse effects DIET/EXERCISE/SOCIAL Hx: ? Reports grazing ? Says she stopped cooking for a long time after ; started getting fast food ? Making a lot of soups now ? Breakfast: eggs and toast ? Lunch: fast food left overs (hamburgers from [employer], [employer], german food) ? Dinner: Same as lunch ? Snacks: potato chips, caramel popcorn, chocolate bars, brownies, cake MEDICATIONS: ? Pill bottles are not present. ? Adherence: denies missed doses. ? [facility] ? Rx coverage: Aetna Medicare ? Affordability: one of her DM meds is very costly (can't recall if empagliflozin or sitagliptin) ? Diabetes supplies: One Touch (buys of shelf) ? Organization System: pill box ACTIVE PROBLEM LIST Primary Osteoarthritis Involving Multiple Joints Obesity Myalgia and Myositis, Unspecified Chronic Pancreatitis (Hcc) Osteopenia Essential Hypertension Hypertriglyceridemia Depression Atrial Fibrillation (Hcc) Vitamin D Deficiency Anxiety Controlled Substance Agreement Signed Stress and Adjustment Reaction Chronic Abdominal Pain Add (Attention Deficit Disorder) Without Hyperactivity Hyperparathyroidism , Secondary, Non-Renal (Hcc) Hyperparathyroidism, Primary (Hcc) PAST MEDICAL HISTORY Diagnosis Date - Abdominal pain, right upper quadrant 10/26/2005 - Abnormal ECG 11/27/2013 - Bicipital tenosynovitis 05/28/2005 - CARDIAC DYSRHYTHMIAS NEC 12/11/2004 - Decreased libido 11/21/2011 - Diverticulitis 12/18/13 - DIVERTICULITIS OF COLON W/O BLEED 12/11/2004 - Hyperparathyroidism , secondary, non-renal (HCC) 06/20/2016 - Incisional hernia 11/02/2013 - ISOLATED OR SPECIFIC PHOBIAS NEC 12/11/2004 - Left lower quadrant pain 11/02/2013 - LLQ pain 12/18/13 - Menopausal hot flushes 10/17/2011 - OBESITY NOS 12/11/2004 - OSTEOARTHROS NOS-OTHER SITE 12/11/2004 L knee arthritis - Other voice and resonance disorders 10/24/2011 - PEPTIC ULCER NOS 12/11/2004 - Transient disorder of initiating or maintaining sleep 02/14/2005 - Vaginal dryness, menopausal 10/17/2011 ALLERGIES Allergen Reactions - Toradol [Ketorolac * Swelling itching - Cymbalta [Duloxetin* Mental Status Change confusion; nightmares; may have been due to also UTI, etc but will not try again - Radha Mental Status Change nightmares - Rozerem [Ramelteon] Intolerance [place]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 aluminum hydrox-magnesium carb (GAVISCON) 95-358 mg/15 mL suspension Take 15 mL by mouth every 6 hours as needed. Patient not taking: Reported on 09/17/2017 atenolol (TENORMIN) 50 mg tablet Take 1 tablet by mouth once daily. benzonatate (TESSALON PERLE) 100 mg capsule Take 1 capsule by mouth three times daily as needed. Patient not taking: Reported on 09/17/2017 blood sugar diagnostic (BLOOD GLUCOSE TEST) test strip Test blood sugar(s) once or twice daily. Dx: E11.9. Med: Invokana. One touch meter. bumetanide (BUMEX) 0.5 mg tablet Take 1 tablet by mouth once daily as needed. As directed for swelling cholecalciferol, Vitamin D3, (VITAMIN D3) 50,000 unit cap capsule Take 1 capsule by mouth twice a week. ciclopirox (LOPROX) 0.77 % cream Apply 1 application to affected area twice daily. Clotrimazole 2 % crea Use 1 Applicatorful vaginally daily at bedtime. For vaginitis; May apply to external areas with yeast infection daily until rash or itching codeine-guaiFENesin (GUAIFENESIN AC) 10-100 mg/5 mL syrup Take 5 mL by mouth once daily as needed for up to 90 days. Patient not taking: Reported on 09/17/2017 cyanocobalamin 1,000 mcg/mL soln Inject 1 mL intramuscularly once every month. diltiazem CD (CARDIZEM CD, CARTIA XT) 240 mg 24 hr capsule TAKE 1 CAPSULE BY MOUTH ONCE DAILY. empagliflozin (JARDIANCE) 25 mg tablet Take 1 tablet by mouth once daily. taking esterified estrogens-methylTESTOSTERone (ESTRATEST HS) 0.625- 1.25 mg per tablet Take 1 tablet by mouth once daily. Patient not taking: Reported on 09/17/2017 fluticasone (FLONASE) 50 mcg/actuation nasal spray Use 2 Sprays in each nostril once daily. Rinse mouth after use. icosapent ethyl (VASCEPA) 1 gram cap Take by mouth. irbesartan (AVAPRO) 300 mg tablet Take 1 tablet by mouth once daily. Lancets lancets Test blood sugar(s) once or twice daily. Dx: E11.9. Med: Invokana. One touch meter. nystatin (MYCOSTATIN) powder APPLY 1 APPLICATION TO AFFECTED AREA THREE TIMES DAILY. DIRECTED FOR TREATMENT OF YEAST INFECTION ondansetron orally disintegrating (ZOFRAN ODT) 4 mg disintegrating tablet Take 1 tablet by mouth every 6 hours as needed. oxyCODONE-acetaminophen (PERCOCET) 7.5-325 mg tablet Take 1 tablet by mouth twice daily as needed for up to 30 days. For severe pain. Earliest Fill Date: 09/30/17 oxyCODONE-acetaminophen (PERCOCET) 7.5-325 mg tablet Take 1 tablet by mouth twice daily as needed for up to 30 days. For severe pain. Earliest Fill Date: 10/30/17 oxyCODONE-acetaminophen (PERCOCET) 7.5-325 mg tablet Take 1 tablet by mouth twice daily as needed for up to 30 days. For severe pain. Earliest Fill Date: 11/29/17 pravastatin (PRAVACHOL) 20 mg tablet Take 1 tablet by mouth daily at bedtime. sitaGLIPtin (JANUVIA) 100 mg tablet Take 1 tablet by mouth once daily. taking Zolpidem (AMBIEN CR) 12.5 mg CR tablet Take 1 tablet by mouth daily at bedtime for 180 days. GLYCEMIC CONTROL: ? Glucometer present at visit: Yes ? SMBG?s: Date Fasting AM 11/28 165 10/10 149 10/9 135 10/8 200 10/7 127 10/6 176 ? Hypoglycemia: none Objective: VITALS: BP 156/69 Pulse 64 (note: BP was taken towards end of visit after patient had teared up/been emotional when talking about stressful experiences this year) Recheck: Error on machine Last 3 Encounter BP Readings: Date: BP: 11/14/2017 132/73 09/17/2017 118/66 06/28/2017 124/82 Wt: 104.6 kg (230 lb 9.6 oz) BMI: 40.85 kg/(m2) LABS Lab Results Component Value Date HBA1C 8.2 11/14/2017 HBA1C 7.0 08/15/2017 HBA1C 8.2 03/15/2017 CMP: Glucose 163 11/14/2017 BUN 17 11/14/2017 Creatinine 0.62 11/14/2017 Sodium 138 11/14/2017 Potassium 4.5 11/14/2017 Chloride 102 11/14/2017 CO2 22 11/14/2017 Protein, Total 7.0 11/14/2017 Albumin 4.0 11/14/2017 Calcium 10.5 11/14/2017 Alkaline Phosphatase 70 11/14/2017 Bilirubin, Total 0.3 11/14/2017 AST 19 11/14/2017 ALT 18 11/14/2017 eGFR >60 (per CMP on 11/14/17) Estimated CrCL 89.3 mL/min (calculated using Ht 160 cm, adjusted Wt 73.3 kg, sCr 0.62 mg/dL, using [place]) Last Lipid Panel Lab Results Component Value Date CHOL 254 03/15/2017 Lab Results Component Value Date HDL 43 03/15/2017 Lab Results Component Value Date LDL Unable to calculate due to increased Triglycerides. See LDL-Chol, Direct. 03/15/2017 Lab Results Component Value Date TG 501 03/15/2017 Albumin/Creat Ratio (mg/g) Date Value 11/14/2017 Not calculated PHARMACOTHERAPY ASSESSMENT/PLAN: 1. Controlled type 2 diabetes mellitus without complication, without long-term current use of insulin ([facility]) - ICD9: 250.00, ICD10: E11.9 (primary diagnosis) A1c goal <8%; slightly uncontrolled based on last A1c (8.2%); A1c has increased since July (7.0 --> 8.2%) which patient reports is due to stress and increased appetite; patient was primarily referred to PharmD to help switch around DM medications because patient wants to d/c current DM meds and try different ones d/t ADEs she is experiencing; patient feels that empagliflozin is causing a lot of ADEs (weight gain, yeast infxn) and she wants to return back to canagliflozin, which she was on earlier this year; PharmD explained that the likely reason she was switched to empagliflozin was because of the less documented ADEs associated with empagliflozin compared to canagliflozin (i.e. increased association with BKA, euglycemic diabetic ketoacidosis); PharmD informed patient that empagliflozin is generally associated with weight loss, not gain, and theoretically both canagliflozin and empagliflozin have similar risks of causing yeast infxn; patient still expressed great interest in starting canagliflozin - PharmD will make switch today; patient also expresses great interest in getting off sitagliptin; she can't remember but she thinks it is expensive; patient is candidate for metformin and was previously on it but it was d/c'd for unknown reasons; discussed with patient - plan is to only switch the SGLT2 inhibitors today, f/u in 1 month, then consider d/c sitagliptin and starting metformin ER; patient agreed with plan; renal fxn, electrolytes, and LFTs WNL and appropriate for continued use - INITIATE canagliflozin 300mg daily - DISCONTINUE empagliflozin 25mg daily - CONTINUE sitagliptin 100mg daily - Requested that patient continue checking FBG 2. Essential hypertension - ICD9: 401.9, ICD10: I10 BP goal <140/90; uncontrolled at today's visit, likely d/t emotional stress from talking about personal tragedies; documented BP typically well controlled on current regimen so will not make any changes today; tolerating well; HR, K+, renal fxn, and LFTs WNL and appropriate for continued use - CONTINUE atenolol 50mg daily, irbesartan 300mg daily, diltiazem CD 240mg daily, and bumetanide 0.5mg daily PRN swelling 3. Medication management - ICD9: V58.69, ICD10: Z79.899 PharmD was unable to thoroughly review med list during this visit - will review med list at next visit Patient is scheduled to see PCP on 01/14. Patient to return to clinic for PharmD f/u on 01/01. Patient verbalized understanding of instructions. Abdirashid Malone, ShivD, [facility] Primary Care Clinical Pharmacist [facility] INOCENTEOV Observed: 11/28/2017 Status: COMPLETED Source: [facility] 2:00 PM [facility] REPOSITORY Office Visit (PHMEWO) AKTHERIN MARTIN ([id number]) 1940 F Date Time Provider Department 11/28/17 2:00 PM WANDER (PHARMACIST), ABDIRASHID CHIN During your visit today, we recorded the following information about you: Pulse Blood pressure 64/minute 156/69 ABDIRASHID MALONE, PHARMACIST 11/29/2017 9:40 AM Signed Patient consents to pharmacy collaborative practice agreement. REASON FOR CONSULT: DM GOALS: A1c < 8% CONSULTING PROVIDER: Dr. Reaves Date of Consult: 11/14/17 Katherin Martin is a 77 year old female was last seen by PCP, Dr. Moo Reaves MD on 11/14 for an SMA. Subjective: Patient is presenting today for initial pharmacotherapy management appointment for diabetes. INTERIM HISTORY: Reports not liking empagliflozin Experienced a yeast injection several weeks ago Reports increased hunger and weight gain which she associates with empagliflozin Says she wants to go back to canagliflozin; reports was on it previously and she liked it much more Patient also really wants to get off of sitagliptin - unexplained reasons Reports having some memory problems which frustrates her Reports she was very depressed after her a few years ago Had recent tragedy this year - in March, step-daughter committed suicide, patient reports guilt because she says she should have been there Patient teared up in office Past DM medications: Metformin - discontinued for unknown reasons Current DM Medications: Empagliflozin 25mg daily Sitagliptin 100mg daily Current HTN Medications: Diltiazem CD 240mg daily Bumetanide 0.5mg daily PRN swelling Irbesartan 300mg daily Atenolol 50mg daily Preventative Medications: ? On CHAS/ARB: Yes ? On Statin: Yes ? On ASA: No ROS: ? Patient denies CP, SOB, BISWAS, blurred vision, dizziness or lightheadedness ? Patient denies symptoms of hypoglycemia (sweating, anxiety, palpitations, hunger, and tremor) ? Patient denies symptoms of hyperglycemia (polyuria, polydipsia, polyphagia) ? Patient denies potential medication adverse effects DIET/EXERCISE/SOCIAL Hx: ? Reports grazing ? Says she stopped cooking for a long time after ; started getting fast food ? Making a lot of soups now ? Breakfast: eggs and toast ? Lunch: fast food left overs (hamburgers from [employer], [employer], german food) ? Dinner: Same as lunch ? Snacks: potato chips, caramel popcorn, chocolate bars, brownies, cake MEDICATIONS: ? Pill bottles are not present. ? Adherence: denies missed doses. ? [facility] ? Rx coverage: Aetna Medicare ? Affordability: one of her DM meds is very costly (can't recall if empagliflozin or sitagliptin) ? Diabetes supplies: One Touch (buys of shelf) ? Organization System: pill box ACTIVE PROBLEM LIST Primary Osteoarthritis Involving Multiple Joints Obesity Myalgia and Myositis, Unspecified Chronic Pancreatitis (Hcc) Osteopenia Essential Hypertension Hypertriglyceridemia Depression Atrial Fibrillation (Hcc) Vitamin D Deficiency Anxiety Controlled Substance Agreement Signed Stress and Adjustment Reaction Chronic Abdominal Pain Add (Attention Deficit Disorder) Without Hyperactivity Hyperparathyroidism , Secondary, Non-Renal (Hcc) Hyperparathyroidism, Primary (Hcc) PAST MEDICAL HISTORY Diagnosis Date - Abdominal pain, right upper quadrant 10/26/2005 - Abnormal ECG 11/27/2013 - Bicipital tenosynovitis 05/28/2005 - CARDIAC DYSRHYTHMIAS NEC 12/11/2004 - Decreased libido 11/21/2011 - Diverticulitis 12/18/13 - DIVERTICULITIS OF COLON W/O BLEED 12/11/2004 - Hyperparathyroidism , secondary, non-renal (HCC) 06/20/2016 - Incisional hernia 11/02/2013 - ISOLATED OR SPECIFIC PHOBIAS NEC 12/11/2004 - Left lower quadrant pain 11/02/2013 - LLQ pain 12/18/13 - Menopausal hot flushes 10/17/2011 - OBESITY NOS 12/11/2004 - OSTEOARTHROS NOS-OTHER SITE 12/11/2004 L knee arthritis - Other voice and resonance disorders 10/24/2011 - PEPTIC ULCER NOS 12/11/2004 - Transient disorder of initiating or maintaining sleep 02/14/2005 - Vaginal dryness, menopausal 10/17/2011 ALLERGIES Allergen Reactions - Toradol [Ketorolac * Swelling itching - Cymbalta [Duloxetin* Mental Status Change confusion; nightmares; may have been due to also UTI, etc but will not try again - Redux Mental Status Change nightmares - Rozerem [Ramelteon] Intolerance [place]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 aluminum hydrox-magnesium carb (GAVISCON) 95-358 mg/15 mL suspension Take 15 mL by mouth every 6 hours as needed. Patient not taking: Reported on 09/17/2017 atenolol (TENORMIN) 50 mg tablet Take 1 tablet by mouth once daily. benzonatate (TESSALON PERLE) 100 mg capsule Take 1 capsule by mouth three times daily as needed. Patient not taking: Reported on 09/17/2017 blood sugar diagnostic (BLOOD GLUCOSE TEST) test strip Test blood sugar(s) once or twice daily. Dx: E11.9. Med: Invokana. One touch meter. bumetanide (BUMEX) 0.5 mg tablet Take 1 tablet by mouth once daily as needed. As directed for swelling cholecalciferol, Vitamin D3, (VITAMIN D3) 50,000 unit cap capsule Take 1 capsule by mouth twice a week. ciclopirox (LOPROX) 0.77 % cream Apply 1 application to affected area twice daily. Clotrimazole 2 % crea Use 1 Applicatorful vaginally daily at bedtime. For vaginitis; May apply to external areas with yeast infection daily until rash or itching codeine-guaiFENesin (GUAIFENESIN AC) 10-100 mg/5 mL syrup Take 5 mL by mouth once daily as needed for up to 90 days. Patient not taking: Reported on 09/17/2017 cyanocobalamin 1,000 mcg/mL soln Inject 1 mL intramuscularly once every month. diltiazem CD (CARDIZEM CD, CARTIA XT) 240 mg 24 hr capsule TAKE 1 CAPSULE BY MOUTH ONCE DAILY. empagliflozin (JARDIANCE) 25 mg tablet Take 1 tablet by mouth once daily. taking esterified estrogens-methylTESTOSTERone (ESTRATEST HS) 0.625- 1.25 mg per tablet Take 1 tablet by mouth once daily. Patient not taking: Reported on 09/17/2017 fluticasone (FLONASE) 50 mcg/actuation nasal spray Use 2 Sprays in each nostril once daily. Rinse mouth after use. icosapent ethyl (VASCEPA) 1 gram cap Take by mouth. irbesartan (AVAPRO) 300 mg tablet Take 1 tablet by mouth once daily. Lancets lancets Test blood sugar(s) once or twice daily. Dx: E11.9. Med: Invokana. One touch meter. nystatin (MYCOSTATIN) powder APPLY 1 APPLICATION TO AFFECTED AREA THREE TIMES DAILY. DIRECTED FOR TREATMENT OF YEAST INFECTION ondansetron orally disintegrating (ZOFRAN ODT) 4 mg disintegrating tablet Take 1 tablet by mouth every 6 hours as needed. oxyCODONE-acetaminophen (PERCOCET) 7.5-325 mg tablet Take 1 tablet by mouth twice daily as needed for up to 30 days. For severe pain. Earliest Fill Date: 09/30/17 oxyCODONE-acetaminophen (PERCOCET) 7.5-325 mg tablet Take 1 tablet by mouth twice daily as needed for up to 30 days. For severe pain. Earliest Fill Date: 10/30/17 oxyCODONE-acetaminophen (PERCOCET) 7.5-325 mg tablet Take 1 tablet by mouth twice daily as needed for up to 30 days. For severe pain. Earliest Fill Date: 11/29/17 pravastatin (PRAVACHOL) 20 mg tablet Take 1 tablet by mouth daily at bedtime. sitaGLIPtin (JANUVIA) 100 mg tablet Take 1 tablet by mouth once daily. taking Zolpidem (AMBIEN CR) 12.5 mg CR tablet Take 1 tablet by mouth daily at bedtime for 180 days. GLYCEMIC CONTROL: ? Glucometer present at visit: Yes ? SMBG?s: Date Fasting AM 11/28 165 10/10 149 10/9 135 10/8 200 10/7 127 10/6 176 ? Hypoglycemia: none Objective: VITALS: BP 156/69 Pulse 64 (note: BP was taken towards end of visit after patient had teared up/been emotional when talking about stressful experiences this year) Recheck: Error on machine Last 3 Encounter BP Readings: Date: BP: 11/14/2017 132/73 09/17/2017 118/66 06/28/2017 124/82 Wt: 104.6 kg (230 lb 9.6 oz) BMI: 40.85 kg/(m2) LABS Lab Results Component Value Date HBA1C 8.2 11/14/2017 HBA1C 7.0 08/15/2017 HBA1C 8.2 03/15/2017 CMP: Glucose 163 11/14/2017 BUN 17 11/14/2017 Creatinine 0.62 11/14/2017 Sodium 138 11/14/2017 Potassium 4.5 11/14/2017 Chloride 102 11/14/2017 CO2 22 11/14/2017 Protein, Total 7.0 11/14/2017 Albumin 4.0 11/14/2017 Calcium 10.5 11/14/2017 Alkaline Phosphatase 70 11/14/2017 Bilirubin, Total 0.3 11/14/2017 AST 19 11/14/2017 ALT 18 11/14/2017 eGFR >60 (per CMP on 11/14/17) Estimated CrCL 89.3 mL/min (calculated using Ht 160 cm, adjusted Wt 73.3 kg, sCr 0.62 mg/dL, using [place]) Last Lipid Panel Lab Results Component Value Date CHOL 254 03/15/2017 Lab Results Component Value Date HDL 43 03/15/2017 Lab Results Component Value Date LDL Unable to calculate due to increased Triglycerides. See LDL-Chol, Direct. 03/15/2017 Lab Results Component Value Date TG 501 03/15/2017 Albumin/Creat Ratio (mg/g) Date Value 11/14/2017 Not calculated PHARMACOTHERAPY ASSESSMENT/PLAN: 1. Controlled type 2 diabetes mellitus without complication, without long-term current use of insulin ([facility]) - ICD9: 250.00, ICD10: E11.9 (primary diagnosis) A1c goal <8%; slightly uncontrolled based on last A1c (8.2%); A1c has increased since July (7.0 --> 8.2%) which patient reports is due to stress and increased appetite; patient was primarily referred to PharmD to help switch around DM medications because patient wants to d/c current DM meds and try different ones d/t ADEs she is experiencing; patient feels that empagliflozin is causing a lot of ADEs (weight gain, yeast infxn) and she wants to return back to canagliflozin, which she was on earlier this year; PharmD explained that the likely reason she was switched to empagliflozin was because of the less documented ADEs associated with empagliflozin compared to canagliflozin (i.e. increased association with BKA, euglycemic diabetic ketoacidosis); PharmD informed patient that empagliflozin is generally associated with weight loss, not gain, and theoretically both canagliflozin and empagliflozin have similar risks of causing yeast infxn; patient still expressed great interest in starting canagliflozin - PharmD will make switch today; patient also expresses great interest in getting off sitagliptin; she can't remember but she thinks it is expensive; patient is candidate for metformin and was previously on it but it was d/c'd for unknown reasons; discussed with patient - plan is to only switch the SGLT2 inhibitors today, f/u in 1 month, then consider d/c sitagliptin and starting metformin ER; patient agreed with plan; renal fxn, electrolytes, and LFTs WNL and appropriate for continued use - INITIATE canagliflozin 300mg daily - DISCONTINUE empagliflozin 25mg daily - CONTINUE sitagliptin 100mg daily - Requested that patient continue checking FBG 2. Essential hypertension - ICD9: 401.9, ICD10: I10 BP goal <140/90; uncontrolled at today's visit, likely d/t emotional stress from talking about personal tragedies; documented BP typically well controlled on current regimen so will not make any changes today; tolerating well; HR, K+, renal fxn, and LFTs WNL and appropriate for continued use - CONTINUE atenolol 50mg daily, irbesartan 300mg daily, diltiazem CD 240mg daily, and bumetanide 0.5mg daily PRN swelling 3. Medication management - ICD9: V58.69, ICD10: Z79.899 PharmD was unable to thoroughly review med list during this visit - will review med list at next visit Patient is scheduled to see PCP on 01/14. Patient to return to clinic for PharmD f/u on 01/01. Patient verbalized understanding of instructions. Abdirashid Malone, Kari, [facility] Primary Care Clinical Pharmacist [place] ABDIRASHID MALONE PHARMACIST 11/28/2017 3:02 PM Signed STOP Jardiance today. START Invokana 300mg daily starting tomorrow. Please continue checking blood sugar in the morning before breakfast. Referring Provider: MOO REAVES [[id number]] Allergies As of Date: 11/28/2017 Noted Allergy Reaction TORADOL (KETOROLAC TROMETHAMINE) 11/16/2004 7 - Swelling Comments: itching CYMBALTA (DULOXETINE) 06/28/2017 1 - Mental Status Change Comments: confusion; nightmares; may have been due to also UTI, etc but will not try again REDUX 11/05/2016 1 - Mental Status Change Comments: nightmares ROZEREM (RAMELTEON) 06/20/2016 5 - Intolerance Comments: [place] paralyzed and gave her nightmares Date Reviewed: 11/28/2017 Reviewed by: Emilie Allan LPN - Fully Assessed Reason for Visit: Allied Health Visit [5] Cmt: DM initial Primary Visit Diagnosis:Controlled type 2 diabetes mellitus without complication, without long-term current use of insulin (HCC) [E11.9] Other Visit Diagnoses:Essential hypertension [I10] Medication management [Z79.899] Order(s):canagliflozin (INVOKANA) 300 mg tabletTake 1 tablet by mouth daily with breakfast.Disp: 30 tabletRfl: 5 Prescriptions as of 11/28/2017 Sig: CANAGLIFLOZIN 300 MG TABLET Take 1 tablet by mouth daily * CLOTRIMAZOLE 2 % VAGINAL CREAM Use 1 Applicatorful vaginally* NYSTATIN 100,000 UNIT/GRAM TO* APPLY 1 APPLICATION TO AFFECT* ZOLPIDEM ER 12.5 MG TABLET,EX* Take 1 tablet by mouth daily * ATENOLOL 50 MG TABLET Take 1 tablet by mouth once d* CICLOPIROX 0.77 % TOPICAL CRE* Apply 1 application to affect* OXYCODONE-ACETAMINOPHEN 7.5 M* Take 1 tablet by mouth twice * X OXYCODONE-ACETAMINOPHEN 7.5 M* Take 1 tablet by mouth twice * X OXYCODONE-ACETAMINOPHEN 7.5 M* Take 1 tablet by mouth twice * DILTIAZEM SR 240 MG 24 HR CAP TAKE 1 CAPSULE BY MOUTH ONCE * ALPRAZOLAM 0.5 MG TABLET Take 1 tablet by mouth twice * ONDANSETRON 4 MG DISINTEGRATI* Take 1 tablet by mouth every * SITAGLIPTIN 100 MG TABLET Take 1 tablet by mouth once d* CHOLECALCIFEROL (VITAMIN D3) * Take 1 capsule by mouth twice* BUMETANIDE 0.5 MG TABLET Take 1 tablet by mouth once d* CODEINE 10 MG-GUAIFENESIN 100* Take 5 mL by mouth once daily* Patient not taking: Reported on 09/17/2017 CYANOCOBALAMIN (VIT B-12) 1,0* Inject 1 mL intramuscularly o* FLUTICASONE 50 MCG/ACTUATION * Use 2 Sprays in each nostril * BENZONATATE 100 MG CAPSULE Take 1 capsule by mouth three* Patient not taking: Reported on 09/17/2017 LANCETS Test blood sugar(s) once or t* PRAVASTATIN 20 MG TABLET Take 1 tablet by mouth daily * IRBESARTAN 300 MG TABLET Take 1 tablet by mouth once d* BLOOD SUGAR DIAGNOSTIC STRIPS Test blood sugar(s) once or t* ESTERIFIED ESTROGENS-METHYLTE* Take 1 tablet by mouth once d* Patient not taking: Reported on 09/17/2017 ALUMINUM HYDROX-MAGNESIUM CAR* Take 15 mL by mouth every 6 h* Patient not taking: Reported on 09/17/2017 ICOSAPENT ETHYL 1 GRAM CAPSULE Take by mouth. Problem List As Of Date 11/28/2017 Noted Resolved Primary osteoarthritis involving multiple joint*INVALID FOR* More... Obesity [E66.9] INVALID FOR* MYALGIA AND MYOSITIS NOS [UST0275] INVALID FOR* Chronic Pancreatitis [K86.1] INVALID FOR* Osteopenia [M85.80] INVALID FOR* More... Essential hypertension [I10] INVALID FOR* Hypertriglyceridemia [E78.1] INVALID FOR* Diabetes mellitus type II INVALID FOR*10/05/2013 Depression [F32.9] INVALID FOR* Atrial fibrillation [I48.91] INVALID FOR* Vitamin D deficiency [E55.9] INVALID FOR* Anxiety [F41.9] INVALID FOR* Controlled substance agreement signed [Z79.899] INVALID FOR* Diabetes (HCC) [E11.9] INVALID FOR*08/14/2015 Stress and adjustment reaction [F43.29] INVALID FOR* Chronic abdominal pain [R10.9, G89.29] INVALID FOR* ADD (attention deficit disorder) without hypera*INVALID FOR* Hyperparathyroidism , secondary, non-renal (HCC*INVALID FOR* Hyperparathyroidism, primary (HCC) [E21.0] INVALID FOR* Other instructions from your clinician: STOP Jardiance today. START Invokana 300mg daily starting tomorrow. Please continue checking blood sugar in the morning before breakfast. Prescriptions ordered this encounter Disp Refills Start End CANAGLIFLOZIN 300 MG TABLET 30 t* 5 11/28/2017 Route: ORAL Sig: Take 1 tablet by mouth daily with breakfast. Medications Discontinued During This Encounter empagliflozin (JARDIANCE) 25 mg tabl* 90 t* 3 06/28/2017 11/28/2017 Route: ORAL Sig: Take 1 tablet by mouth once daily. Disc: Side Effects Encounter Status:Closed by WANDER (PHARMACIST)ABDIRASHID on 11/29/17 FRANCIEN Observed: 11/19/2017 Status: COMPLETED Source: [place] 12:00 AM [facility] REPOSITORY Telephone (PHARMN) KATHERIN MARTIN ([id number]) 1940 F Date Time Provider Department 11/19/17 PHARMACIST GREGORY During your visit today, we recorded the following information about you: Katherin Caitlin Santos Psr 11/19/2017 2:22 PM Signed Patient called requesting a return call from the Clinical Pharmacist. She has questions regarding starting Invokana. Patient would like to be seen by you sooner than her 12/17/17 new pharmacy appt. [phone] ABDIRASHID MALONE PHARMACIST 11/20/2017 11:58 AM Signed Patient called asking if she could get started on canagliflozin as was discussed at last [facility] visit PharmD talked with patient - she had the names confused and was actually referring to metformin, not canagliflozin Patient's appt with PharmD currently scheduled for 12/17 but patient doesn't want to wait that long for her appt. PharmD rescheduled her for next week on 11/28 - will address possibly starting metformin at that time. PharmD also requested that patient check FBG daily and bring glucometer and pill bottles with her to appt (patient as appt with PCP later that day). Abdirashid Malone, Kari, [facility] Primary Care Clinical Pharmacist [place] Allergies As of Date: 11/19/2017 Noted Allergy Reaction TORADOL (KETOROLAC TROMETHAMINE) 11/16/2004 7 - Swelling Comments: itching CYMBALTA (DULOXETINE) 06/28/2017 1 - Mental Status Change Comments: confusion; nightmares; may have been due to also UTI, etc but will not try again REDUX 11/05/2016 1 - Mental Status Change Comments: nightmares ROZEREM (RAMELTEON) 06/20/2016 5 - Intolerance Comments: [place] paralyzed and gave her nightmares Date Reviewed: 11/14/2017 Reviewed by: Emilie Allan LPN - Fully Assessed Reason for Visit: NEW PHARMACY MED/REVIEW [Other] Prescriptions as of 11/19/2017 Sig: CLOTRIMAZOLE 2 % VAGINAL CREAM Use 1 Applicatorful vaginally* NYSTATIN 100,000 UNIT/GRAM TO* APPLY 1 APPLICATION TO AFFECT* ZOLPIDEM ER 12.5 MG TABLET,EX* Take 1 tablet by mouth daily * ATENOLOL 50 MG TABLET Take 1 tablet by mouth once d* CICLOPIROX 0.77 % TOPICAL CRE* Apply 1 application to affect* OXYCODONE-ACETAMINOPHEN 7.5 M* Take 1 tablet by mouth twice * OXYCODONE-ACETAMINOPHEN 7.5 M* Take 1 tablet by mouth twice * OXYCODONE-ACETAMINOPHEN 7.5 M* Take 1 tablet by mouth twice * DILTIAZEM SR 240 MG 24 HR CAP TAKE 1 CAPSULE BY MOUTH ONCE * ALPRAZOLAM 0.5 MG TABLET Take 1 tablet by mouth twice * EMPAGLIFLOZIN 25 MG TABLET Take 1 tablet by mouth once d* ONDANSETRON 4 MG DISINTEGRATI* Take 1 tablet by mouth every * SITAGLIPTIN 100 MG TABLET Take 1 tablet by mouth once d* CHOLECALCIFEROL (VITAMIN D3) * Take 1 capsule by mouth twice* BUMETANIDE 0.5 MG TABLET Take 1 tablet by mouth once d* CODEINE 10 MG-GUAIFENESIN 100* Take 5 mL by mouth once daily* Patient not taking: Reported on 09/17/2017 CYANOCOBALAMIN (VIT B-12) 1,0* Inject 1 mL intramuscularly o* FLUTICASONE 50 MCG/ACTUATION * Use 2 Sprays in each nostril * BENZONATATE 100 MG CAPSULE Take 1 capsule by mouth three* Patient not taking: Reported on 09/17/2017 LANCETS Test blood sugar(s) once or t* PRAVASTATIN 20 MG TABLET Take 1 tablet by mouth daily * IRBESARTAN 300 MG TABLET Take 1 tablet by mouth once d* BLOOD SUGAR DIAGNOSTIC STRIPS Test blood sugar(s) once or t* ESTERIFIED ESTROGENS-METHYLTE* Take 1 tablet by mouth once d* Patient not taking: Reported on 09/17/2017 ALUMINUM HYDROX-MAGNESIUM CAR* Take 15 mL by mouth every 6 h* Patient not taking: Reported on 09/17/2017 ICOSAPENT ETHYL 1 GRAM CAPSULE Take by mouth. Problem List As Of Date 11/19/2017 Noted Resolved Primary osteoarthritis involving multiple joint*INVALID FOR* More... Obesity [E66.9] INVALID FOR* MYALGIA AND MYOSITIS NOS [[id number]] INVALID FOR* Chronic Pancreatitis [K86.1] INVALID FOR* Osteopenia [M85.80] INVALID FOR* More... Essential hypertension [I10] INVALID FOR* Hypertriglyceridemia [E78.1] INVALID FOR* Diabetes mellitus type II INVALID FOR*10/05/2013 Depression [F32.9] INVALID FOR* Atrial fibrillation [I48.91] INVALID FOR* Vitamin D deficiency [E55.9] INVALID FOR* Anxiety [F41.9] INVALID FOR* Controlled substance agreement signed [Z79.899] INVALID FOR* Diabetes (HCC) [E11.9] INVALID FOR*08/14/2015 Stress and adjustment reaction [F43.29] INVALID FOR* Chronic abdominal pain [R10.9, G89.29] INVALID FOR* ADD (attention deficit disorder) without hypera*INVALID FOR* Hyperparathyroidism , secondary, non-renal (HCC*INVALID FOR* Hyperparathyroidism, primary (HCC) [E21.0] INVALID FOR* Encounter Status:Closed by KATHERIN SAMS on 11/19/17 SPINE LUMBAR Observed: 11/15/2017 Status: F Source: [place] (ROUTINE) 4:03 PM [facility] REPOSITORY [facility] Imaging Services [address] [place] [id number] Spine Lumbar (Routine) MR#: [id number] Acct: [id number] Name: KATHERIN MARTIN Rep #: [id number] : 1940 F 76 From: Krish Waddell MD PCP: Moo Reaves MD Status: REG CLI Study: Spine Lumbar (Routine) Date of Exam: 11/15/17 Exam# [id number] Ordering Dr: Monica Gutierrez MD STUDY: MRI LUMBAR SPINE WITHOUT CONTRAST REASON FOR EXAM: Female, 76 years old. Low back pain TECHNIQUE: Standardized fat and water weighted pulse sequences were obtained in the sagittal and axial planes. COMPARISON: None FINDINGS: There is normal alignment and curvature of the lumbosacral spine with no acute fractures or dislocations and no abnormal infiltrative processes. The disc spaces are all narrowed except at L3-4 and L4-5. The conus medullaris terminates at the L1-L2 level. T12-L1: Normal endplates. Normal disc height, hydration and morphology. Normal bilateral facet joints. Normal central canal and bilateral lateral recesses. Normal bilateral intervertebral neural foramina. L1-2: Disc space narrowing with small marginal osteophytes. No focal disc protrusion or extrusion. Mild degenerative changes of the facet joint. L2-3: Disc space narrowing with small spurs from the vertebral body endplates. No focal disc protrusion or extrusion. There are minimal degenerative changes of the facet joints. L3-4: Normal endplates. Normal disc height, hydration and morphology. Degenerative changes of the facet joints with moderate central canal stenosis or occlusive hypertrophy of the ligamentum flavum. No focal disc protrusion or extrusion.. Normal central canal and bilateral lateral recesses. Normal bilateral intervertebral neural foramina. L4-5: Mild concentric disc bulging. No focal disc protrusion or extrusion L5-S1: Disc space narrowing with small marginal osteophytes. No focal disc protrusion or extrusion. The facet joints are normal MRI/Spine Lumbar (Routine) IMPRESSION: Multilevel intervertebral osteochondrosis. No focal disc protrusion or extrusion. Electronically Signed: Krish Waddell MD at 4:19 EDT Tel , Service support , CC: Monica Gutierrez MD; Moo Reaves MD Automation Controls Specialist: Signed ALBUMIN/CREAT RATIO Collected: 11/14/2017 Status: F Source: [place] 1:30 PM [facility] REPOSITORY TYPE CODE TESTS RESULT OUT OF REFERENCE UNITS RANGE LAB UCRR 20-300 mg/dL 33.0 Creatinine,Ur ine,Ran LAB UALBR 0.0-23.0 mg/L <12.0 Albumin Urine Random LAB UALBCR 0-30 mg/g Not Albumin/Creat calculated Ratio Performed By: #### UACR #### [address] [id number] [place], [place] [address] CBC AND DIFFERENTIAL Collected: 11/14/2017 Status: F Source: [place] 12:30 PM [facility] REPOSITORY TYPE CODE TESTS RESULT OUT OF REFERENCE UNITS RANGE LAB WBC 3.70-11.00 k/uL WBC 7.38 LAB RBC 3.90-5.20 m/uL RBC 5.18 LAB HGB 11.5-15.5 g/dL High Hemoglobin 15.7 LAB HCT 36.0-46.0 % High Hematocrit 47.3 LAB MCV 80.0-100.0 fL MCV 91.3 LAB MCH 26.0-34.0 pG MCH 30.3 LAB MCHC 30.5-36.0 g/dL MCHC 33.2 LAB RDWCV 11.5-15.0 % RDW-CV 14.2 LAB PLTCT 150-400 k/uL Platelet Count 150 LAB MPV 9.0-12.7 fL MPV 10.9 LAB ANEUT % Neut% 62.2 LAB AANEUT 1.45-7.50 k/uL Abs Neut 4.59 LAB ALYMP % Lymph% 29.8 LAB AALYMP 1.00-4.00 k/uL Abs Lymph 2.20 LAB AMONO % [place]% 7.3 LAB AAMONO <0.87 k/uL Abs [place] 0.54 LAB AEOS % Eosin% 0.3 LAB AAEOS <0.46 k/uL Abs Eosin <0.03 LAB ABASO % Baso% 0.4 LAB AABASO <0.11 k/uL Abs Baso 0.03 LAB AUNRBC 0 /100 WBC NRBCs 0.0 LAB ABNRBC <0.01 k/uL Absolute nRBC <0.01 LAB DTYP DTYPE Auto Diff Performed By: #### CBCDIF, CMP, HBA1C #### [facility] [address] [place], [place] [address] COMP METABOLIC PANEL Collected: 11/14/2017 Status: F Source: [facility] 12:30 PM [facility] REPOSITORY TYPE CODE TESTS RESULT OUT OF REFERENCE UNITS RANGE LAB TP 6.3-8.0 g/dL Protein, Total 7.0 LAB ALB 3.9-4.9 g/dL Albumin 4.0 LAB CA 8.5-10.2 mg/dL Calcium, High Total 10.5 LAB TBIL 0.2-1.3 mg/dL Bilirubin, Total 0.3 LAB ALKP 34-123 U/L Alkaline Phosphatase 70 LAB AST 13-35 U/L AST 19 LAB GLU 74-99 mg/dL Glucose High 163 Result Comment: The [place] [employer] (ADA) provides guidance for cutoff values for fasting glucose and random glucose. The ADA defines fasting as no caloric intake for at least 8 hours. Fas ting plasma glucose results between 100 to 125 mg/dL indicate increased risk for diabetes (prediabetes). Fasting plasma glucose results greater than or equal to 126 mg/dL meet the criteria for diagnosis of diabetes. In the absence of unequivocal hyperglycemia, results should be confirmed by repeat testing. In a patient with classic symptoms of hyperglycemia or hyperglycemic crisis, random plasma glucose results greater than or equal to 200 mg/dL meet the criteria for diagnosis of diabetes. Reference: Standards of Medical Care in Diabetes 2016, [place] [employer] Association. Diabetes Care. 2016.39(Suppl 1). LAB BUN 7-21 mg/dL BUN 17 LAB CRET 0.58-0.96 mg/dL Creatinine 0.62 LAB NA 136-144 mmol/L Sodium 138 LAB K 3.7-5.1 mmol/L Potassium 4.5 LAB CL 97-105 mmol/L Chloride 102 LAB CO2 22-30 mmol/L CO2 22 LAB AGAP 9-18 mmol/L Anion Gap 14 LAB ALT 7-38 U/L ALT 18 LAB GFRAA eGFR- Amer. >60 LAB GFRNAA . eGFR-All Other Races >60 Result Comment: eGFR (Estimated GFR) Units of measure: mL/min/1.73 meters squared eGFR is derived from the reexpressed MDRD Study equation using the following parameters: serum creatinine, age, gender and race. The creatinine assay has been calibrated to be traceable to IDMS. An eGFR <60 mL/min/1.73m2 for >3 months is consistent with chronic kidney disease. Refer to KDOQI guidelines for clinical interpretation. In patients with unstable renal function, e.g. those with acute kidney injury, the eGFR may not accurately reflect actual GFR. Performed By: #### CBCDIF, CMP, HBA1C #### [facility] [employer] [address] [place] [address] HEMOGLOBIN A1C Collected: 11/14/2017 Status: F Source: [place] 12:30 PM [facility] REPOSITORY TYPE CODE TESTS RESULT OUT OF REFERENCE UNITS RANGE LAB HGBA1C 4.3-5.6 % High Hemoglobin A1c 8.2 LAB HBA0 mg/dL Est. Average Glucose 189 Result Comment: eAG: (Estimated average glucose) is a calculated value from HgbA1c and is food service representative of the average blood glucose level in the last 2-3 month period. Performed By: #### CBCDIF, CMP, HBA1C #### [place] [address] FREE T3 Collected: 11/14/2017 Status: F Source: [place] 11:58 AM [facility] REPOSITORY TYPE CODE TESTS RESULT OUT OF RANGE REFERENCE UNITS LAB FREET3 2.3-4.1 pg/mL Free T3 2.7 Performed By: #### FREET3, FT4, TSH, PTHI #### [place] [address] FREE T4 Collected: 11/14/2017 Status: F Source: [place] 11:58 AM [facility] REPOSITORY TYPE CODE TESTS RESULT OUT OF RANGE REFERENCE UNITS LAB FT4 0.9-1.7 ng/dL Free T4 1.3 Performed By: #### FREET3, FT4, TSH, PTHI #### [place] [address] TSH Collected: 11/14/2017 Status: F Source: [place] 11:58 AM [facility] REPOSITORY TYPE CODE TESTS RESULT OUT OF RANGE REFERENCE UNITS LAB TSH 0.400-5.500 uU/mL TSH 1.590 Performed By: #### FREET3, FT4, TSH, PTHI #### [place] [address] PTH, INTACT Collected: 11/14/2017 Status: F Source: [place] 11:58 AM [facility] REPOSITORY TYPE CODE TESTS RESULT OUT OF REFERENCE UNITS RANGE LAB PTH 15-65 pg/mL PTH, Intact 61 Performed By: #### FREET3, FT4, TSH, PTHI #### [facility] [address] [place], [place] [address] PROGRESS Observed: 11/14/2017 Status: COMPLETED Source: [place] 10:08 AM [facility] REPOSITORY HNO ID: [id number] Author: Moo Reaves Service: (none) Author Type: Physician Type: Progress Notes Filed: 12/01/2017 3:57 PM Note Text: Last 5 Encounter Wt Readings: Date: Wt: 09/17/2017 104.6 kg (230 lb 9.6 oz) 06/28/2017 98.4 kg (217 lb) 05/29/2017 99.8 kg (220 lb) 05/08/2017 99.3 kg (219 lb) 04/11/2017 101.2 kg (223 lb) Ankles swelling Nurse from [facility] came out. Nausea and sick feeling Weak feeling Not eating right Cannot find glucometer kit. Dr. Puentes working on her being out of rhythm. PROGRESS Observed: 11/14/2017 Status: COMPLETED Source: [place] 10:00 AM [facility] REPOSITORY HNO ID: [id number] Author: Moo Reaves Service: (none) Author Type: Physician Type: Progress Notes Filed: 12/01/2017 3:57 PM Note Text: Patient presents for DM SMA with Dr. Reaves and Abdirashid Malone, PharmD GOALS: A1c <8% Katherin Martin is a 76 year old female was last seen by PCP, Dr. Reaves on 09/17/17. At last PCP visit no med changes were made. Subjective: Not feeling well today; feels a little queasy Has had a lot of visitors this month; hasn't been checking sugars much Stressful at home Hasn't noticed sx of lows or highs Reports gaining weight like crazy Having some swelling around ankles Mentioned that having more frequent vaginal yeast infections Patient says she felt better when she is on metformin - can't remember why it was stopped Current DM Medications: Sitagliptin 100mg daily Empagliflozin 25mg daily ? Patient denies CP, SOB, BISWAS, blurred vision, dizziness or lightheadedness ? Patient denies symptoms of hypoglycemia (sweating, anxiety, palpitations, hunger, and tremor) ? Patient denies symptoms hyperglycemia (polyuria, polydipsia) ? Patient denies potential medication adverse effects ALLERGIES Allergen Reactions - Toradol [Ketorolac * Swelling itching - Cymbalta [Duloxetin* Mental Status Change confusion; nightmares; may have been due to also UTI, etc but will not try again - Redux Mental Status Change nightmares - Rozerem [Ramelteon] Intolerance [place] paralyzed and gave her nightmares PAST MEDICAL HISTORY Diagnosis Date - Abdominal pain, right upper quadrant 10/26/2005 - Abnormal ECG 11/27/2013 - Bicipital tenosynovitis 05/28/2005 - CARDIAC DYSRHYTHMIAS NEC 12/11/2004 - Decreased libido 11/21/2011 - Diverticulitis 12/18/13 - DIVERTICULITIS OF COLON W/O BLEED 12/11/2004 - Hyperparathyroidism , secondary, non-renal (HCC) 06/20/2016 - Incisional hernia 11/02/2013 - ISOLATED OR SPECIFIC PHOBIAS NEC 12/11/2004 - Left lower quadrant pain 11/02/2013 - LLQ pain 12/18/13 - Menopausal hot flushes 10/17/2011 - OBESITY NOS 12/11/2004 - OSTEOARTHROS NOS-OTHER SITE 12/11/2004 L knee arthritis - Other voice and resonance disorders 10/24/2011 - PEPTIC ULCER NOS 12/11/2004 - Transient disorder of initiating or maintaining sleep 02/14/2005 - Vaginal dryness, menopausal 10/17/2011 Current Outpatient Prescriptions: nystatin (MYCOSTATIN) powder APPLY 1 APPLICATION TO AFFECTED AREA THREE TIMES DAILY. DIRECTED FOR TREATMENT OF YEAST INFECTION Zolpidem (AMBIEN CR) 12.5 mg CR tablet Take 1 tablet by mouth daily at bedtime for 180 days. atenolol (TENORMIN) 50 mg tablet Take 1 tablet by mouth once daily. ciclopirox (LOPROX) 0.77 % cream Apply 1 application to affected area twice daily. oxyCODONE-acetaminophen (PERCOCET) 7.5-325 mg tablet Take 1 tablet by mouth twice daily as needed for up to 30 days. For severe pain.Earliest Fill Date: 09/30/17 oxyCODONE-acetaminophen (PERCOCET) 7.5-325 mg tablet Take 1 tablet by mouth twice daily as needed for up to 30 days. For severe pain.Earliest Fill Date: 10/30/17 [START ON 11/29/2017] oxyCODONE-acetaminophen (PERCOCET) 7.5- 325 mg tablet Take 1 tablet by mouth twice daily as needed for up to 30 days. For severe pain.Earliest Fill Date: 11/29/17 diltiazem CD (CARDIZEM CD, CARTIA XT) 240 mg 24 hr capsule TAKE 1 CAPSULE BY MOUTH ONCE DAILY. ALPRAZolam (XANAX) 0.5 mg tablet Take 1 tablet by mouth twice daily for 90 days. empagliflozin (JARDIANCE) 25 mg tablet Take 1 tablet by mouth once daily. ondansetron orally disintegrating (ZOFRAN ODT) 4 mg disintegrating tablet Take 1 tablet by mouth every 6 hours as needed. sitaGLIPtin (JANUVIA) 100 mg tablet Take 1 tablet by mouth once daily. cholecalciferol, Vitamin D3, (VITAMIN D3) 50,000 unit cap capsule Take 1 capsule by mouth twice a week. bumetanide (BUMEX) 0.5 mg tablet Take 1 tablet by mouth once daily as needed. As directed for swelling codeine-guaiFENesin (GUAIFENESIN AC) 10-100 mg/5 mL syrup Take 5 mL by mouth once daily as needed for up to 90 days. (Patient not taking: Reported on 09/17/2017 ) cyanocobalamin 1,000 mcg/mL soln Inject 1 mL intramuscularly once every month. fluticasone (FLONASE) 50 mcg/actuation nasal spray Use 2 Sprays in each nostril once daily. Rinse mouth after use. benzonatate (TESSALON PERLE) 100 mg capsule Take 1 capsule by mouth three times daily as needed. (Patient not taking: Reported on 09/17/2017 ) Lancets lancets Test blood sugar(s) once or twice daily. Dx: E11.9. Med: Invokana. One touch meter. pravastatin (PRAVACHOL) 20 mg tablet Take 1 tablet by mouth daily at bedtime. irbesartan (AVAPRO) 300 mg tablet Take 1 tablet by mouth once daily. blood sugar diagnostic (BLOOD GLUCOSE TEST) test strip Test blood sugar(s) once or twice daily. Dx: E11.9. Med: Invokana. One touch meter. esterified estrogens-methylTESTOSTERone (ESTRATEST HS) 0.625- 1.25 mg per tablet Take 1 tablet by mouth once daily. (Patient not taking: Reported on 09/17/2017 ) aluminum hydrox-magnesium carb (GAVISCON) 95-358 mg/15 mL suspension Take 15 mL by mouth every 6 hours as needed. (Patient not taking: Reported on 09/17/2017 ) icosapent ethyl (VASCEPA) 1 gram cap Take by mouth. No current facility-administered medications for this visit. GLYCEMIC CONTROL: ? SMBG?s: none; not checking ? Hypoglycemia: none Objective: VITALS: BP 132/73 Pulse 71 Resp 20 Last 3 Encounter BP Readings: Date: BP: 09/17/2017 118/66 06/28/2017 124/82 05/29/2017 124/78 Wt: 104.6 kg (230 lb 9.6 oz) BMI: 40.85 kg/(m2) LABS Lab Results Component Value Date HBA1C 7.0 08/15/2017 HBA1C 8.2 03/15/2017 HBA1C 7.8 12/04/2016 CMP: Glucose 167 08/15/2017 BUN 15 08/15/2017 Creatinine 0.61 08/15/2017 Sodium 138 08/15/2017 Potassium 4.3 08/15/2017 Chloride 98 08/15/2017 CO2 21 08/15/2017 Protein, Total 7.5 08/15/2017 Albumin 4.6 08/15/2017 Calcium 10.7 08/15/2017 Alkaline Phosphatase 83 08/15/2017 Bilirubin, Total 0.5 08/15/2017 AST 20 08/15/2017 ALT 20 08/15/2017 Estimated CrCL 92.3 mL/min (calculated using Ht 160 cm, adjusted Wt 73.4 kg, sCr 0.61 mg/dL, using [place] Gault) Last Lipid Panel Lab Results Component Value Date CHOL 254 03/15/2017 Lab Results Component Value Date HDL 43 03/15/2017 Lab Results Component Value Date LDL Unable to calculate due to increased Triglycerides. See LDL-Chol, Direct. 03/15/2017 Lab Results Component Value Date TG 501 03/15/2017 Albumin/Creat Ratio (mg/g) Date Value 04/23/2017 Not calculated ASSESSMENT/PLAN: Controlled type 2 diabetes mellitus without complication, without long-term current use of insulin ([facility]) - ICD9: 250.00, ICD10: E11.9 A1c goal <8%; controlled based on last A1c (7.0%); patient not checking SMBG - reports very stressed out at home; no concerns for hypoglycemia; patient was previously on metformin but it was previously discontinued for unknown reason; patient interested in restarting metformin because she reports feeling better on it; experiencing some frequent yeast infections which could be a side effect of empagliflozin; will not make med changes today, but will consider adding metformin at future appt (will aim for goal dose of at least 1500mg daily as kidney fxn allows); patient interested in meeting with PharmD for medication adjustments; renal fxn and electrolytes WNL and appropriate for continued use - CONTINUE empagliflozin 25mg daily and sitagliptin 100mg daily - CONSULT TO AMBULATORY CLINIC PHARMACY Swelling Patient reports swelling around legs; see PCP note for more detail Patient is scheduled to see PCP 11/28/17. Patient verbalized understanding of instructions. Dr. Reaves and Abdirashid Malone PharmD The patient was seen, chart reviewed and I concur with the above evaluation and plan. Reviewed with SMA group management of DM. Moo Reaves MD Encounter Diagnosis ICD-10-CM 1. Controlled type 2 diabetes mellitus without complication, without long-term current use of insulin (HCC) E11.9 CONSULT TO AMBULATORY CLINIC PHARMACY HGB A1C CBC + DIFF COMP METABOLIC PANEL ALBUMIN/CREAT RATIO RND UR 2. Yeast vaginitis B37.3 fluconazole (DIFLUCAN) 150 mg tablet Clotrimazole 2 % crea 3. Candidal intertrigo B37.2 fluconazole (DIFLUCAN) 150 mg tablet Clotrimazole 2 % crea 4. Paroxysmal atrial fibrillation (HCC) I48.0 5. Essential hypertension I10 6. Stress and adjustment reaction F43.29 Above issues addressed with patient. Patient involved in shared decision making for management of medical issues. History and medications reviewed. Epic updated as needed Refills taken care of and meds adjusted as indicated after reviewed history, exam and labs. Health Maintenance reviewed. Updated record and/or ordered tests as recorded. Encouraged on efforts at healthy diet and regular exercise and adequate sleep. Needs to keep working on diet and exercise with lifestyle changes for effective weight loss as well as contro of DM, and control of BP and lipids. Frustrated about weight gain--will meet one on one with pharmacist to adjust meds to help wit issues with intolerance as well as weight gain associated with meds started when was at [facility]. Though weight gain not typical with the meds she was placed on when admitted to the hospital then the TCU, still fine to pursue med adjustments to see if helps with efforts at weight loss. Nausea could be from one of her meds. Further evaluation and treatment as indicated. Emotional support given. Hoping will be able to get a break from stressors. Close one on one follow up as well as at [facility]. Moo Reaves MD CNOV Observed: 11/14/2017 Status: COMPLETED Source: [facility] 10:00 AM [facility] REPOSITORY Office Visit (INTMWS) MAGALYMARLONKATHERIN Cutler ([id number]) 1940 F Date Time Provider Department 11/14/17 10:00 AM MOO REAVES INTMWS During your visit today, we recorded the following information about you: Pulse Respiration Blood pressure 71/minute 20/minute 132/73 Moo Reaves MD 12/01/2017 3:57 PM Signed Patient presents for DM SMA with Dr. Reaves and Abdirashid Malone, ShivD GOALS: A1c <8% Katherin S Shelby is a 76 year old female was last seen by PCP, Dr. Reaves on 09/17/17. At last PCP visit no med changes were made. Subjective: Not feeling well today; feels a little queasy Has had a lot of visitors this month; hasn't been checking sugars much Stressful at home Hasn't noticed sx of lows or highs Reports gaining weight like crazy Having some swelling around ankles Mentioned that having more frequent vaginal yeast infections Patient says she felt better when she is on metformin - can't remember why it was stopped Current DM Medications: Sitagliptin 100mg daily Empagliflozin 25mg daily ? Patient denies CP, SOB, BISWAS, blurred vision, dizziness or lightheadedness ? Patient denies symptoms of hypoglycemia (sweating, anxiety, palpitations, hunger, and tremor) ? Patient denies symptoms hyperglycemia (polyuria, polydipsia) ? Patient denies potential medication adverse effects ALLERGIES Allergen Reactions - Toradol [Ketorolac * Swelling itching - Cymbalta [Duloxetin* Mental Status Change confusion; nightmares; may have been due to also UTI, etc but will not try again - Redux Mental Status Change nightmares - Rozerem [Ramelteon] Intolerance [place] paralyzed and gave her nightmares PAST MEDICAL HISTORY Diagnosis Date - Abdominal pain, right upper quadrant 10/26/2005 - Abnormal ECG 11/27/2013 - Bicipital tenosynovitis 05/28/2005 - CARDIAC DYSRHYTHMIAS NEC 12/11/2004 - Decreased libido 11/21/2011 - Diverticulitis 12/18/13 - DIVERTICULITIS OF COLON W/O BLEED 12/11/2004 - Hyperparathyroidism , secondary, non-renal (HCC) 06/20/2016 - Incisional hernia 11/02/2013 - ISOLATED OR SPECIFIC PHOBIAS NEC 12/11/2004 - Left lower quadrant pain 11/02/2013 - LLQ pain 12/18/13 - Menopausal hot flushes 10/17/2011 - OBESITY NOS 12/11/2004 - OSTEOARTHROS NOS-OTHER SITE 12/11/2004 L knee arthritis - Other voice and resonance disorders 10/24/2011 - PEPTIC ULCER NOS 12/11/2004 - Transient disorder of initiating or maintaining sleep 02/14/2005 - Vaginal dryness, menopausal 10/17/2011 Current Outpatient Prescriptions: nystatin (MYCOSTATIN) powder APPLY 1 APPLICATION TO AFFECTED AREA THREE TIMES DAILY. DIRECTED FOR TREATMENT OF YEAST INFECTION Zolpidem (AMBIEN CR) 12.5 mg CR tablet Take 1 tablet by mouth daily at bedtime for 180 days. atenolol (TENORMIN) 50 mg tablet Take 1 tablet by mouth once daily. ciclopirox (LOPROX) 0.77 % cream Apply 1 application to affected area twice daily. oxyCODONE-acetaminophen (PERCOCET) 7.5-325 mg tablet Take 1 tablet by mouth twice daily as needed for up to 30 days. For severe pain.Earliest Fill Date: 09/30/17 oxyCODONE-acetaminophen (PERCOCET) 7.5-325 mg tablet Take 1 tablet by mouth twice daily as needed for up to 30 days. For severe pain.Earliest Fill Date: 10/30/17 [START ON 11/29/2017] oxyCODONE-acetaminophen (PERCOCET) 7.5- 325 mg tablet Take 1 tablet by mouth twice daily as needed for up to 30 days. For severe pain.Earliest Fill Date: 11/29/17 diltiazem CD (CARDIZEM CD, CARTIA XT) 240 mg 24 hr capsule TAKE 1 CAPSULE BY MOUTH ONCE DAILY. ALPRAZolam (XANAX) 0.5 mg tablet Take 1 tablet by mouth twice daily for 90 days. empagliflozin (JARDIANCE) 25 mg tablet Take 1 tablet by mouth once daily. ondansetron orally disintegrating (ZOFRAN ODT) 4 mg disintegrating tablet Take 1 tablet by mouth every 6 hours as needed. sitaGLIPtin (JANUVIA) 100 mg tablet Take 1 tablet by mouth once daily. cholecalciferol, Vitamin D3, (VITAMIN D3) 50,000 unit cap capsule Take 1 capsule by mouth twice a week. bumetanide (BUMEX) 0.5 mg tablet Take 1 tablet by mouth once daily as needed. As directed for swelling codeine-guaiFENesin (GUAIFENESIN AC) 10-100 mg/5 mL syrup Take 5 mL by mouth once daily as needed for up to 90 days. (Patient not taking: Reported on 09/17/2017 ) cyanocobalamin 1,000 mcg/mL soln Inject 1 mL intramuscularly once every month. fluticasone (FLONASE) 50 mcg/actuation nasal spray Use 2 Sprays in each nostril once daily. Rinse mouth after use. benzonatate (TESSALON PERLE) 100 mg capsule Take 1 capsule by mouth three times daily as needed. (Patient not taking: Reported on 09/17/2017 ) Lancets lancets Test blood sugar(s) once or twice daily. Dx: E11.9. Med: Invokana. One touch meter. pravastatin (PRAVACHOL) 20 mg tablet Take 1 tablet by mouth daily at bedtime. irbesartan (AVAPRO) 300 mg tablet Take 1 tablet by mouth once daily. blood sugar diagnostic (BLOOD GLUCOSE TEST) test strip Test blood sugar(s) once or twice daily. Dx: E11.9. Med: Invokana. One touch meter. esterified estrogens-methylTESTOSTERone (ESTRATEST HS) 0.625- 1.25 mg per tablet Take 1 tablet by mouth once daily. (Patient not taking: Reported on 09/17/2017 ) aluminum hydrox-magnesium carb (GAVISCON) 95-358 mg/15 mL suspension Take 15 mL by mouth every 6 hours as needed. (Patient not taking: Reported on 09/17/2017 ) icosapent ethyl (VASCEPA) 1 gram cap Take by mouth. No current facility-administered medications for this visit. GLYCEMIC CONTROL: ? SMBG?s: none; not checking ? Hypoglycemia: none Objective: VITALS: BP 132/73 Pulse 71 Resp 20 Last 3 Encounter BP Readings: Date: BP: 09/17/2017 118/66 06/28/2017 124/82 05/29/2017 124/78 Wt: 104.6 kg (230 lb 9.6 oz) BMI: 40.85 kg/(m2) LABS Lab Results Component Value Date HBA1C 7.0 08/15/2017 HBA1C 8.2 03/15/2017 HBA1C 7.8 12/04/2016 CMP: Glucose 167 08/15/2017 BUN 15 08/15/2017 Creatinine 0.61 08/15/2017 Sodium 138 08/15/2017 Potassium 4.3 08/15/2017 Chloride 98 08/15/2017 CO2 21 08/15/2017 Protein, Total 7.5 08/15/2017 Albumin 4.6 08/15/2017 Calcium 10.7 08/15/2017 Alkaline Phosphatase 83 08/15/2017 Bilirubin, Total 0.5 08/15/2017 AST 20 08/15/2017 ALT 20 08/15/2017 Estimated CrCL 92.3 mL/min (calculated using Ht 160 cm, adjusted Wt 73.4 kg, sCr 0.61 mg/dL, using [place] Gault) Last Lipid Panel Lab Results Component Value Date CHOL 254 03/15/2017 Lab Results Component Value Date HDL 43 03/15/2017 Lab Results Component Value Date LDL Unable to calculate due to increased Triglycerides. See LDL-Chol, Direct. 03/15/2017 Lab Results Component Value Date TG 501 03/15/2017 Albumin/Creat Ratio (mg/g) Date Value 04/23/2017 Not calculated ASSESSMENT/PLAN: Controlled type 2 diabetes mellitus without complication, without long-term current use of insulin (HCC) - ICD9: 250.00, ICD10: E11.9 A1c goal <8%; controlled based on last A1c (7.0%); patient not checking SMBG - reports very stressed out at home; no concerns for hypoglycemia; patient was previously on metformin but it was previously discontinued for unknown reason; patient interested in restarting metformin because she reports feeling better on it; experiencing some frequent yeast infections which could be a side effect of empagliflozin; will not make med changes today, but will consider adding metformin at future appt (will aim for goal dose of at least 1500mg daily as kidney fxn allows); patient interested in meeting with PharmD for medication adjustments; renal fxn and electrolytes WNL and appropriate for continued use - CONTINUE empagliflozin 25mg daily and sitagliptin 100mg daily - CONSULT TO AMBULATORY CLINIC PHARMACY Swelling Patient reports swelling around legs; see PCP note for more detail Patient is scheduled to see PCP 11/28/17. Patient verbalized understanding of instructions. Dr. Reaves and Abdirashid Malone PharmD The patient was seen, chart reviewed and I concur with the above evaluation and plan. Reviewed with SMA group management of DM. Moo Reaves MD Encounter Diagnosis ICD-10-CM 1. Controlled type 2 diabetes mellitus without complication, without long-term current use of insulin (HCC) E11.9 CONSULT TO AMBULATORY CLINIC PHARMACY HGB A1C CBC + DIFF COMP METABOLIC PANEL ALBUMIN/CREAT RATIO RND UR 2. Yeast vaginitis B37.3 fluconazole (DIFLUCAN) 150 mg tablet Clotrimazole 2 % crea 3. Candidal intertrigo B37.2 fluconazole (DIFLUCAN) 150 mg tablet Clotrimazole 2 % crea 4. Paroxysmal atrial fibrillation (HCC) I48.0 5. Essential hypertension I10 6. Stress and adjustment reaction F43.29 Above issues addressed with patient. Patient involved in shared decision making for management of medical issues. History and medications reviewed. Epic updated as needed Refills taken care of and meds adjusted as indicated after reviewed history, exam and labs. Health Maintenance reviewed. Updated record and/or ordered tests as recorded. Encouraged on efforts at healthy diet and regular exercise and adequate sleep. Needs to keep working on diet and exercise with lifestyle changes for effective weight loss as well as contro of DM, and control of BP and lipids. Frustrated about weight gain--will meet one on one with pharmacist to adjust meds to help wit issues with intolerance as well as weight gain associated with meds started when was at [facility]. Though weight gain not typical with the meds she was placed on when admitted to the hospital then the TCU, still fine to pursue med adjustments to see if helps with efforts at weight loss. Nausea could be from one of her meds. Further evaluation and treatment as indicated. Emotional support given. Hoping will be able to get a break from stressors. [facility] one [facility] MD Moo Zepeda MD 12/01/2017 3:57 PM Signed Last 5 Encounter Wt Readings: Date: Wt: 09/17/2017 104.6 kg (230 lb 9.6 oz) 06/28/2017 98.4 kg (217 lb) 05/29/2017 99.8 kg (220 lb) 05/08/2017 99.3 kg (219 lb) 04/11/2017 101.2 kg (223 lb) Ankles swelling Nurse from [facility] came out. Nausea and sick feeling Weak feeling Not eating right Cannot find glucometer kit. Dr. Puentes working on her being out of rhythm. Referring Provider: SELF [[id number]] Allergies As of Date: 11/14/2017 Noted Allergy Reaction TORADOL (KETOROLAC TROMETHAMINE) 11/16/2004 7 - Swelling Comments: itching CYMBALTA (DULOXETINE) 06/28/2017 1 - Mental Status Change Comments: confusion; nightmares; may have been due to also UTI, etc but will not try again REDUX 11/05/2016 1 - Mental Status Change Comments: nightmares ROZEREM (RAMELTEON) 06/20/2016 5 - Intolerance Comments: [place] paralyzed and gave her nightmares Date Reviewed: 11/14/2017 Reviewed by: Emilie Allan LPN - Fully Assessed Reason for Visit: DM [facility] [Other] Primary Visit Diagnosis:Controlled type 2 diabetes mellitus without complication, without long-term current use of insulin (HCC) [E11.9] Other Visit Diagnoses:Yeast vaginitis [B37.3] Candidal intertrigo [B37.2] Paroxysmal atrial fibrillation (HCC) [I48.0] Essential hypertension [I10] Stress and adjustment reaction [F43.29] Order(s):CONSULT TO AMBULATORY CLINIC PHARMACY [19990426] Order #: [id number]: 1 HGB A1C [BTRWA5D] Order #: [id number] FUTURE CBC + DIFF [SQCBCDIF] Order #: [id number] FUTURE COMP METABOLIC PANEL [SQCMP] Order #: [id number] FUTURE ALBUMIN/CREAT RATIO RND UR [SQUACR] Order #: [id number] FUTURE [] fluconazole (DIFLUCAN) 150 mg tabletTake 1 tablet by mouth one time only for 1 dose. Repeat in 3 days as needed.Disp: 2 tabletRfl: 0 Clotrimazole 2 % creaUse 1 Applicatorful vaginally daily at bedtime. For vaginitis; May apply to external areas with yeast infection daily until rash or itchingDisp: 21 gRfl: 0 Prescriptions as of 11/14/2017 Sig: FLUCONAZOLE 150 MG TABLET Take 1 tablet by mouth one ti* CLOTRIMAZOLE 2 % VAGINAL CREAM Use 1 Applicatorful vaginally* NYSTATIN 100,000 UNIT/GRAM TO* APPLY 1 APPLICATION TO AFFECT* ZOLPIDEM ER 12.5 MG TABLET,EX* Take 1 tablet by mouth daily * ATENOLOL 50 MG TABLET Take 1 tablet by mouth once d* CICLOPIROX 0.77 % TOPICAL CRE* Apply 1 application to affect* OXYCODONE-ACETAMINOPHEN 7.5 M* Take 1 tablet by mouth twice * X OXYCODONE-ACETAMINOPHEN 7.5 M* Take 1 tablet by mouth twice * X OXYCODONE-ACETAMINOPHEN 7.5 M* Take 1 tablet by mouth twice * DILTIAZEM SR 240 MG 24 HR CAP TAKE 1 CAPSULE BY MOUTH ONCE * ALPRAZOLAM 0.5 MG TABLET Take 1 tablet by mouth twice * ONDANSETRON 4 MG DISINTEGRATI* Take 1 tablet by mouth every * SITAGLIPTIN 100 MG TABLET Take 1 tablet by mouth once d* CHOLECALCIFEROL (VITAMIN D3) * Take 1 capsule by mouth twice* BUMETANIDE 0.5 MG TABLET Take 1 tablet by mouth once d* CODEINE 10 MG-GUAIFENESIN 100* Take 5 mL by mouth once daily* Patient not taking: Reported on 09/17/2017 X EMPAGLIFLOZIN 25 MG TABLET Take 1 tablet by mouth once d* CYANOCOBALAMIN (VIT B-12) 1,0* Inject 1 mL intramuscularly o* FLUTICASONE 50 MCG/ACTUATION * Use 2 Sprays in each nostril * BENZONATATE 100 MG CAPSULE Take 1 capsule by mouth three* Patient not taking: Reported on 09/17/2017 LANCETS Test blood sugar(s) once or t* PRAVASTATIN 20 MG TABLET Take 1 tablet by mouth daily * IRBESARTAN 300 MG TABLET Take 1 tablet by mouth once d* BLOOD SUGAR DIAGNOSTIC STRIPS Test blood sugar(s) once or t* ESTERIFIED ESTROGENS-METHYLTE* Take 1 tablet by mouth once d* Patient not taking: Reported on 09/17/2017 ALUMINUM HYDROX-MAGNESIUM CAR* Take 15 mL by mouth every 6 h* Patient not taking: Reported on 09/17/2017 ICOSAPENT ETHYL 1 GRAM CAPSULE Take by mouth. Problem List As Of Date 11/14/2017 Noted Resolved Primary osteoarthritis involving multiple joint*INVALID FOR* More... Obesity [E66.9] INVALID FOR* MYALGIA AND MYOSITIS NOS [HJI1025] INVALID FOR* Chronic Pancreatitis [K86.1] INVALID FOR* Osteopenia [M85.80] INVALID FOR* More... Essential hypertension [I10] INVALID FOR* Hypertriglyceridemia [E78.1] INVALID FOR* Diabetes mellitus type II INVALID FOR*10/05/2013 Depression [F32.9] INVALID FOR* Atrial fibrillation [I48.91] INVALID FOR* Vitamin D deficiency [E55.9] INVALID FOR* Anxiety [F41.9] INVALID FOR* Controlled substance agreement signed [Z79.899] INVALID FOR* Diabetes (HCC) [E11.9] INVALID FOR*08/14/2015 Stress and adjustment reaction [F43.29] INVALID FOR* Chronic abdominal pain [R10.9, G89.29] INVALID FOR* ADD (attention deficit disorder) without hypera*INVALID FOR* Hyperparathyroidism , secondary, non-renal (HCC*INVALID FOR* Hyperparathyroidism, primary (HCC) [E21.0] INVALID FOR* Prescriptions ordered this encounter Disp Refills Start End FLUCONAZOLE 150 MG TABLET 2 ta* 0 11/14/2017 11/14/2017 Route: ORAL Sig: Take 1 tablet by mouth one time only for 1 dose. Repeat in 3 days as needed. CLOTRIMAZOLE 2 % VAGINAL CREAM 21 g 0 11/14/2017 Cmt: Patient will use if diflucan not effective Route: VAGINAL Sig: Use 1 Applicatorful vaginally daily at bedtime. For vaginitis; May apply to external areas with yeast infection daily until rash or itching Follow-up and Disposition History Recorded Encounter Status:Closed by MOO REAVES MD on 12/01/17 CARDIOLOGY VISIT Observed: 11/07/2017 Status: F Source: [facility] REPORT 5:09 PM [facility] REPOSITORY [facility] [place] [address] OFFICE VISIT Date of Service: 11/04/17 MR#: [id number] Acct: [id number] Name: KATHERIN MARTIN Rep #: [id number] : 1940 Provider: Kari Bryant Age/Sex: 76/F Location: [facility] Status: Signed HPI HPI Details: KATHERIN MARTIN, is a 76 F who presents to the office today for a cardiovascular follow-up. She recently established with us for concerns over palpitations. She does have a history of possible previous paroxysmal atrial fibrillation, hypertension and hyperlipidemia. Patient did have a DVT with recent knee surgery. Pt is still symptomatic with her palpitations. She finds that this is bothersome for her. She finds that if she has back pain this seems to aggreviate her symptoms. She also notes that she is having dizziness. This is not new. Her PCP decreased her Avapro to 150 mg daily. This has not helped with symptoms. She does keep herself hydrated. She does not have any near syncope/syncope. She does not have any edema. Intake Vital Signs11/04/17 Height 5 ft 3 in 11/04/17 Weight: 230 lb 11/04/17 Body Mass Index (BMI) 40.7 11/04/17 Blood Pressure 130/60 11/04/17 Respiratory Rate 16 11/04/17 Pulse Rate 58 Intake Visit Reasons: 6 M FU moved up from Dec per MMM Allergies duloxetine [From Cymbalta] Allergy (Verified 11/04/17 12:47) Other ramelteon [From Rozerem] Allergy (Verified 11/04/17 12:47) Other bupropion Adverse Reaction (Verified 11/04/17 12:47) Other bupropion HCl [From Wellbutrin] Adverse Reaction (Verified 11/04/17 12:47) Other dexfenfluramine HCl [From Redux] Adverse Reaction (Verified 11/04/17 12:47) Unknown hydrochlorothiazide Adverse Reaction (Verified 11/04/17 12:47) Other ketorolac tromethamine [From Toradol] Adverse Reaction (Verified 11/04/17 12:47) Itching oxaprozin [From Daypro] Adverse Reaction (Verified 11/04/17 12:47) Other Medications ALPRAZolam [Xanax] 0.5 mg PO QHS 12/11/13 [History Confirmed 09/02/17] Diltiazem CD [Cardizem CD] 240 mg PO DAILY 12/11/13 [History Confirmed 09/02/17] Sitagliptin Phosphate [Januvia] 100 mg PO DAILY 05/30/17 [History Confirmed 09/02/17] Empagliflozin [Jardiance] 25 mg PO DAILY #30 tab 06/12/17 [Rx Confirmed 09/02/17] Ondansetron [Zofran Odt] 4 mg PO Q6H PRN PRN #30 tab 06/12/17 [Rx Confirmed 09/02/17] Oxycodone [Oxyir] 5 - 10 mg PO Q4H PRN PRN 3 Days #12 tab 06/22/17 [Rx Confirmed 09/02/17] Cyanocobalamin [Vitamin B12] 100 mcg IM Q30D 07/31/17 [History Confirmed 09/02/17] Ergocalciferol [Vitamin D] 50,000 unit PO Q7D 07/31/17 [History Confirmed 09/02/17] Fluticasone Propionate [Flonase Allergy Relief] 1 spray INHALATION DAILY 07/31/17 [History Confirmed 09/02/17] Zolpidem Tartrate [Ambien Cr] 12.5 mg PO QHS PRN PRN 07/31/17 [History Confirmed 09/02/17] irbesartan 300 mg tablet 300 mg PO QDAY 09/12/17 [History] atenolol 50 mg tablet 50 mg PO QDAY #30 tab 09/24/17 [Rx] tramadol 50 mg tablet 50 mg PO .Q12 PRN #20 tab 10/17/17 [Rx] PFSH Medical History Type 2 diabetes mellitus without complications (Chronic) Small bowel obstruction (Resolved) Osteoarthritis (Chronic) DVT (deep venous thrombosis) (Chronic) Segmental and somatic dysfunction of pelvic region (Acute) Segmental and somatic dysfunction of sacral region (Acute) Segmental and somatic dysfunction of thoracic region (Acute) DDD (degenerative disc disease), lumbar (Chronic) Segmental and somatic dysfunction of lumbar region (Acute) Morbid obesity due to excess calories (Chronic) Paroxysmal atrial fibrillation (Chronic) Hyperlipidemia (Chronic) Hypertension (Chronic) whipple surgery (Inactive) Surgical History History of medial meniscus repair of right knee (Chronic) Hx of cholecystectomy (Chronic) History of total abdominal hysterectomy (Chronic) History of bowel resection (Chronic) History of bladder suspension procedure (Chronic) History of bilateral carpal tunnel release (Inactive) History of bladder suspension procedure (Inactive) History of hysterectomy (Inactive) S/P cholecystectomy (Inactive) sigmoid colon removed (Inactive) vaginal wall repaired (Inactive) Family History Mother Myocardial infarction Social History Smoking Status: Never smoker second hand exposure: No alcohol intake: current alcohol intake frequency: holidays/special occasions only substance use type: does not use caffeine: Yes what type of physical activity do you participate in: none frequency: does not exercise seatbelt use: always ROS Const Const: Positive for fatigue; negative for weakness, difficulty sleeping, frequent falls, excessive sweating or headache(s) Eyes Eyes: Negative for loss of peripheral vision, transient loss of vision, blurry vision, tunnel vision or double vision ENT ENT: Negative for headache(s), dizziness, Nosebleed/epistaxis or balance problems Cardio Chest Pain: No Palpitations: Yes (Increase palpitations when laying in chair ) feels like its: thumping, pounding Edema: None Muscle aches with walking: None Resp Respiratory: Negative for SOB with activity, SOB at rest, SOB orthopnea\SOB lying down, paroxysmal nocturnal dyspnea or Cough GI GI: Negative nausea, heartburn, black,tarry stools or vomiting : Negative for hematuria Musc Musc: Positive for joint pain (Right knee pain and back pain); negative for balance problems, muscle aches/ myalgia or muscle weakness Skin Skin: Negative non-healing lesions, unusual bruising or rash Neuro Neuro: Negative for weakness, frequent falls, headache(s), blurry vision, double vision, dizziness, lightheadedness, orthostatic symptoms, near syncope, syncope or lack of coordination Yousuf Hematologic/Lymphatic: Negative for easy bruising or easy bleeding Endo Endo: Positive for fatigue; negative for excessive sweating or increased thirst/drinking Psych Psych: Positive for depression; negative for anxiety Allergy Allergy/Immunology: Negative for hives, Negative for rash Cardiology Exam Const Appearance: cooperative, healthy appearing, well developed, well groomed and no acute distress Nutritional Appearance: well nourished and average body habitus Orientation: alert, awake and oriented x3 Head Head: normal to inspection, normocephalic and atraumatic Ears: hearing grossly normal bilaterally and external ears normal Nose: external nose normal, nasal mucous membranes and turbinates normal, nares normal, septum normal, no nasal discharge Face and Sinus: face symmetric Mouth: oral mucosae normal, tongue normal, oropharynx normal and moist mucous membranes Teeth and gingiva: dentition normal Throat: posterior oropharynx normal, tonsils normal and uvula midline Eyes General: appearance normal, both eyes and all related structures Eyelids: eyelids normal Conjunctivae: conjunctivae normal Pupils: PERRL, normal by confrontation and accommodation normal EOM: EOM intact bilaterally Neck Neck: normal visual inspection, trachea midline and no JVD JVD: +5 Carotids: normal carotid upstroke and bounding pulses Chest Chest inspection: normal inspection of the chest, symmetric chest movement and normal respiratory effort Auscultation: Bilateral: Clear to Auscultation Cardio Palpation: normal PMI Rhythm: irregular rhythm Heart sounds: S1 normal and S2 normal GI GI: normal to inspection, soft, no hepatosplenomegaly and bowel sounds present Neuro General: alert, awake, oriented x3, no focal sensory deficit, gait normal and moves all extremities Skin Skin: no rashes or lesions noted Extremities Pulses: Normal: Right Femoral Pulse, Left Femoral Pulse, Right Dorsalis Pedis Pulse, Left Dorsalis Pedis Pulse, Right Posterior Tibial Pulse, Left Posterior Tibial Pulse, Right Radial Pulse, Left Radial Pulse Lower Extremity Edema: None: Bilateral Musculoskel Musculoskeletal: No joint tenderness Psych Psychological: normal affect Supplemental Info Echocardiogram in 2018 demonstrated Normal LV size. Left ventricular systolic function is normal. The estimated ejection fraction is 55 %. Intact atrial septum Contrast injection was performed. Stress test in 2018 demonstrated Normal pharmacologic myocardial perfusion stress test. No evidence of atrial fibrillation noted. Preserved ejection fraction. Assessment AND Plan 1. Paroxysmal atrial fibrillation I48.0 Plan - RUBEN uTbbs Reviewed stress test and echocardiogram with patient. Since she is symptomatic with her symptoms will have her try to take her atenolol in the evening. If this does not help with her symptoms we can adjust her atenolol to 20 5 in the morning and 25 in evening. We will also obtain electrolytes. Patient Instructions - RUBEN Tubbs Take your atenolol in the evening. If this does not help with palpitations give us a call. Orders Orders: 2. Pure hypercholesterolemia E78.00; E78.0 Plan - RUBEN Tubbs Patient will remain on moderate dose statin therapy. This is managed by primary care. 3. Essential hypertension I10 Plan - RUBEN Tubbs Blood pressure is well controlled on current medications, we do not recommend any changes at this time. Plan Detail Other Orders Orders: Additional Comments - RUBEN Tubbs The above patient was discussed with Dr. Puentes, he agrees with plan of care. Thank you for allowing us to participate in patient's plan of care, if you have any questions please do not hesitate to call. This note was generated using a voice recognition system and there may be incorrect words, spelling or punctuation errors that were not noted when reviewing the office note prior to saving. Goals Decrease LBP Decrease inflammation Barriers DDD Obesity Previous knee surgery Follow Up 3 Months ([facility]) Coding Level of Care Code Off vis,est,level 3 Diagnoses Paroxysmal atrial fibrillation I48.0 Pure hypercholesterolemia E78.00; E78.0 Hyperlipidemia type: pure hypercholesterolemia Essential hypertension I10 Hypertension type: essential hypertension Coding Level of Care Code Off vis,est,level 3 Diagnoses Paroxysmal atrial fibrillation I48.0 Pure hypercholesterolemia E78.00; E78.0 Hyperlipidemia type: pure hypercholesterolemia Essential hypertension I10 Hypertension type: essential hypertension 11/04/17 1420 <Electronically signed by Kari MIRANDA> Date Kari MIRANDA 11/07/17 1709<Electronically signed by Casa Puentes MD> Cosigner Signature: Date (if applicable) Casa Puentes MD CC: Moo Reaves MD BASIC METABOLIC Collected: 11/04/2017 Status: F Source: [place]UMMON[place] PROFILE (BMP) 3:27 PM [facility] REPOSITORY TYPE CODE TESTS RESULT OUT OF RANGE REFERENCE UNITS LAB L501.0100 74-106 mg/dL High GLU 195 Result Comment: Fasting Glucose result greater than or equal to 126 mg/dL suggests DIABETES MELLITUS per A.D.A. criteria. Please note revised GLUCOSE reference range effective 2017. LAB L501.1000 7-18 mg/dL High BUN 26 LAB L501.1100 0.55-1.02 mg/dL Normal CREAT,SERUM 0.96 Result Comment: The validity of the calculated GFR AND GFRAA in patients over 70 years has not been determined. Clinical correlation is essential. LAB L501.1110 >60 mL/min Normal EST GFR 60 Result Comment: Non- GFR Calc LAB L501.1115 >60 mL/min Normal EST GFR - AA 73 Result Comment: GFR Calc LAB L501.1300 10-20 RATIO High BUN/CRE 27.0 LAB L501.2200 8.5-10.1 mg/dL High CA 10.6 LAB L501.5300 136-145 mmol/L NA Normal 137 LAB L501.5600 3.5-5.1 mmol/L K Normal 3.9 Result Comment: Slight Hemolysis, Result may be falsely increased. LAB L501.5900 98-107 mmol/L Normal CL 102 LAB L501.6100 21.0-32.0 mmol/L Normal CO2 27.0 LAB L501.6200 5-15 Normal 8 GAP Performed By: #### L500.2500, L501.5200, L501.9520 #### [facility] [address] [place], [place], [address] MAGNESIUM Collected: 11/04/2017 Status: F Source: JAMIE 3:27 PM [facility] REPOSITORY TYPE CODE TESTS RESULT OUT OF RANGE REFERENCE UNITS LAB L501.5200 1.6-2.6 mg/dL Normal MG 2.2 Result Comment: Slight Hemolysis, Result may be falsely increased. Performed By: #### L500.2500, L501.5200, L501.9520 #### [facility] [address] [place], [address] THYROID STIM HORMONE Collected: 11/04/2017 Status: F Source: JAMIE (TSH) 3:27 PM [facility] REPOSITORY TYPE CODE TESTS RESULT OUT OF RANGE REFERENCE UNITS LAB L501.9520 0.358-3.74 uIU/mL Normal TSH 1.12 Performed By: #### L500.2500, L501.5200, L501.9520 #### [facility] [address] [place], [address] LUMBAR SPINE 2 OR 3 Observed: 11/04/2017 Status: F Source: JAMIE VIEWS 12:17 PM [facility] REPOSITORY [facility] Imaging Services [address] [place] [address] Lumbar Spine 2 or 3 Views MR#: [id number] Acct: [id number] Name: KATHERIN MARTIN Rep #: [id number] : 1940 F 76 From: [facility] PCP: Moo Reaves MD Status: REG CLI Study: Lumbar Spine 2 or 3 Views Date of Exam: 11/04/17 Exam# [id number] Ordering Dr: Monica Gutierrez MD STUDY: X-RAY - LUMBAR SPINE REASON FOR EXAM: Female, 76 years old. Low back pain TECHNIQUE: 3 view(s) of the lumbar spine were obtained. COMPARISON: None FINDINGS: Normal lumbar lordosis. Gentle rightward scoliosis curvature. There is a normal alignment of the vertebrae. There is multilevel endplate spondylosis of the lumbar vertebrae. There is multi-level degenerative disc disease with multi-level disc space narrowing. There is no demonstrated fracture. The soft tissue structures are unremarkable. RAD/Lumbar Spine 2 or 3 Views IMPRESSION: Degenerative changes of the spine, as detailed above. Electronically Signed: Reji Darby DO at 13:33 EDT Tel , Service support , CC: Monica Gutierrez MD; Moo Reaves MD Automation Controls Specialist: Signed PROGRESS Observed: 10/18/2017 Status: COMPLETED Source: LAJAS 1:04 PM [facility] REPOSITORY HNO ID: [id number] Author: Veronica Resendez Cma Service: (none) Author Type: (none) Type: Progress Notes Filed: 10/18/2017 1:04 PM Note Text: Letters mailed to patient. PROGRESS Observed: 10/18/2017 Status: COMPLETED Source: LAJAS 1:03 PM [facility] REPOSITORY HNO ID: [id number] Author: Veronica Resendez Cma Service: (none) Author Type: (none) Type: Progress Notes Filed: 10/18/2017 1:04 PM Note Text: Katherin has an upcoming f/up appointment with PCP on 11/28. She will be due for labs prior to that appointment. Labs already ordered. I will send appointment/lab reminder with DM retinal reminder and release form. Appointment notes updated. Health Maintenance Due: DTAP,TDAP,TD(2 - Td) due on 11/15/2015 DIABETIC FOOT EXAM due on 01/12/2017 - [facility] DILATED RETINAL EXAM due on 07/19/2017 - sending letter INFLUENZA(1) due on 10/19/2017 CNPTOUTREACH Observed: 10/18/2017 Status: COMPLETED Source: LAJAS 12:00 AM [facility] REPOSITORY Patient Outreach ([facility]) KATHERIN MARTIN ([id number]) 1940 F Date Time Provider Department 10/18/17 VERONICA RESENDEZ ([facility] [place] During your visit today, we recorded the following information about you: Veronica Resendez [facility] 10/18/2017 1:04 PM Signed Katherin has an upcoming f/up appointment with PCP on 11/28. She will be due for labs prior to that appointment. Labs already ordered. I will send appointment/lab reminder with DM retinal reminder and release form. Appointment notes updated. Health Maintenance Due: DTAP,TDAP,TD(2 - Td) due on 11/15/2015 DIABETIC FOOT EXAM due on 01/12/2017 - address at appt. DILATED RETINAL EXAM due on 07/19/2017 - sending letter INFLUENZA(1) due on 10/19/2017 Veronica Resendez [facility] 10/18/2017 1:04 PM Signed Letters mailed to patient. Allergies As of Date: 10/18/2017 Noted Allergy Reaction TORADOL (KETOROLAC TROMETHAMINE) 11/16/2004 7 - Swelling Comments: itching CYMBALTA (DULOXETINE) 06/28/2017 1 - Mental Status Change Comments: confusion; nightmares; may have been due to also UTI, etc but will not try again REDUX 11/05/2016 1 - Mental Status Change Comments: nightmares ROZEREM (RAMELTEON) 06/20/2016 5 - Intolerance Comments: [place] paralyzed and gave her nightmares Date Reviewed: 08/15/2017 Reviewed by: Emilie Allan LPN - Fully Assessed Reason for Visit: PHMA/Care Gap Outreach [[id number]] Prescriptions as of 10/18/2017 Sig: ZOLPIDEM ER 12.5 MG TABLET,EX* Take 1 tablet by mouth daily * ATENOLOL 50 MG TABLET Take 1 tablet by mouth once d* CICLOPIROX 0.77 % TOPICAL CRE* Apply 1 application to affect* OXYCODONE-ACETAMINOPHEN 7.5 M* Take 1 tablet by mouth twice * OXYCODONE-ACETAMINOPHEN 7.5 M* Take 1 tablet by mouth twice * OXYCODONE-ACETAMINOPHEN 7.5 M* Take 1 tablet by mouth twice * DILTIAZEM SR 240 MG 24 HR CAP TAKE 1 CAPSULE BY MOUTH ONCE * ALPRAZOLAM 0.5 MG TABLET Take 1 tablet by mouth twice * EMPAGLIFLOZIN 25 MG TABLET Take 1 tablet by mouth once d* ONDANSETRON 4 MG DISINTEGRATI* Take 1 tablet by mouth every * SITAGLIPTIN 100 MG TABLET Take 1 tablet by mouth once d* CHOLECALCIFEROL (VITAMIN D3) * Take 1 capsule by mouth twice* BUMETANIDE 0.5 MG TABLET Take 1 tablet by mouth once d* CODEINE 10 MG-GUAIFENESIN 100* Take 5 mL by mouth once daily* Patient not taking: Reported on 09/17/2017 CYANOCOBALAMIN (VIT B-12) 1,0* Inject 1 mL intramuscularly o* FLUTICASONE 50 MCG/ACTUATION * Use 2 Sprays in each nostril * BENZONATATE 100 MG CAPSULE Take 1 capsule by mouth three* Patient not taking: Reported on 09/17/2017 LANCETS Test blood sugar(s) once or t* PRAVASTATIN 20 MG TABLET Take 1 tablet by mouth daily * IRBESARTAN 300 MG TABLET Take 1 tablet by mouth once d* NYSTATIN 100,000 UNIT/GRAM TO* Apply 1 application to affect* BLOOD SUGAR DIAGNOSTIC STRIPS Test blood sugar(s) once or t* ESTERIFIED ESTROGENS-METHYLTE* Take 1 tablet by mouth once d* Patient not taking: Reported on 09/17/2017 ALUMINUM HYDROX-MAGNESIUM CAR* Take 15 mL by mouth every 6 h* Patient not taking: Reported on 09/17/2017 ICOSAPENT ETHYL 1 GRAM CAPSULE Take by mouth. Problem List As Of Date 10/18/2017 Noted Resolved Primary osteoarthritis involving multiple joint*INVALID FOR* More... Obesity [E66.9] INVALID FOR* MYALGIA AND MYOSITIS NOS [NYY1344] INVALID FOR* Chronic Pancreatitis [K86.1] INVALID FOR* Osteopenia [M85.80] INVALID FOR* More... Essential hypertension [I10] INVALID FOR* Hypertriglyceridemia [E78.1] INVALID FOR* Diabetes mellitus type II INVALID FOR*10/05/2013 Depression [F32.9] INVALID FOR* Atrial fibrillation [I48.91] INVALID FOR* Vitamin D deficiency [E55.9] INVALID FOR* Anxiety [F41.9] INVALID FOR* Controlled substance agreement signed [Z79.329] INVALID FOR* Diabetes (HCC) [E11.9] INVALID FOR*08/14/2015 Stress and adjustment reaction [F43.29] INVALID FOR* Chronic abdominal pain [R10.9, G89.29] INVALID FOR* ADD (attention deficit disorder) without hypera*INVALID FOR* Hyperparathyroidism , secondary, non-renal (HCC*INVALID FOR* Hyperparathyroidism, primary (HCC) [E21.0] INVALID FOR* Letter Text [facility] Moo Rubio MD [address], [place] [address] Dear Katherin Martin Your health care is very important to us. Our records indicate that you may be due for a diabetic eye exam. If you have had a diabetic eye exam within the last year, please have your records sent to us so that we may update your medical records. There is a medical records of release of information included in this letter. Please take the release to your eye doctor for future appointments to have your records forwarded to us. Important facts about diabetic eye exams Diabetic retinal exams should be done yearly for all patients with a diagnosis of diabetes. Risks such as diabetic retinopathy can be reduced with blood glucose control and early detection of potential problems. Diabetic retinopathy is damage to the small blood vessels in the retina that can lead to blindness Thank you, Moo Rubio MD Letter [facility] [address] [place], [place] [id number] Office: [phone] Moo Rubio MD REQUEST FOR EYE EXAM FINDINGS March 09, 2016 Dear eye lawn care worker, Thank you for coordinating eye care for our mutual patient, Katherin Martin (1940). Please fax this letter back to me with the most appropriate response selected below. Please allow the patient's signature to serve as permission to share your findings. Sincerely, Moo Rubio MD Patient Signature Date Date of eye exam: Findings Both Eyes Right Left No Retinopathy Detected Non Proliferative Retinopathy Mild Moderate Severe Proliferative Retinopathy Macular Edema Further testing and/or treatment indicated Comments: Patient is to return: Encounter Status:Closed by VERONICA RESENDEZ CMA on 10/18/17 ORTHOPEDIC VISIT Observed: 09/26/2017 Status: F Source: JAMIE REPORT 2:42 PM [facility] REPOSITORY [facility] Orthopaedics AND Sports Medicine [address] [place] [id number] OFFICE VISIT Date of Service: 09/26/17 MR#: [id number] Acct: [id number] Name: KATHERIN MARTIN Rep #: [id number] : 1940 Provider: Mendy Walker DO Age/Sex: 76/F Location: [facility] Status: Signed Intake Intake Visit Reasons: RIGHT KNEE Chief Complaint: low back pain Allergies duloxetine [From Cymbalta] Allergy (Verified 09/02/17 13:35) Other ramelteon [From Rozerem] Allergy (Verified 09/02/17 13:35) Other bupropion Adverse Reaction (Verified 09/02/17 13:35) Other bupropion HCl [From Wellbutrin] Adverse Reaction (Verified 09/02/17 13:35) Other dexfenfluramine HCl [From Redux] Adverse Reaction (Verified 09/02/17 13:35) Unknown hydrochlorothiazide Adverse Reaction (Verified 09/02/17 13:35) Other ketorolac tromethamine [From Toradol] Adverse Reaction (Verified 09/02/17 13:35) Itching oxaprozin [From Daypro] Adverse Reaction (Verified 09/02/17 13:35) Other Medications ALPRAZolam [Xanax] 0.5 mg PO QHS 12/11/13 [History Confirmed 09/02/17] Diltiazem CD [Cardizem CD] 240 mg PO DAILY 12/11/13 [History Confirmed 09/02/17] Sitagliptin Phosphate [Januvia] 100 mg PO DAILY 05/30/17 [History Confirmed 09/02/17] Empagliflozin [Jardiance] 25 mg PO DAILY #30 tab 06/12/17 [Rx Confirmed 09/02/17] Ondansetron [Zofran Odt] 4 mg PO Q6H PRN PRN #30 tab 06/12/17 [Rx Confirmed 09/02/17] Oxycodone [Oxyir] 5 - 10 mg PO Q4H PRN PRN 3 Days #12 tab 06/22/17 [Rx Confirmed 09/02/17] Cyanocobalamin [Vitamin B12] 100 mcg IM Q30D 07/31/17 [History Confirmed 09/02/17] Ergocalciferol [Vitamin D] 50,000 unit PO Q7D 07/31/17 [History Confirmed 09/02/17] Fluticasone Propionate [Flonase Allergy Relief] 1 spray INHALATION DAILY 07/31/17 [History Confirmed 09/02/17] Zolpidem Tartrate [Ambien Cr] 12.5 mg PO QHS PRN PRN 07/31/17 [History Confirmed 09/02/17] irbesartan 300 mg tablet 300 mg PO QDAY 09/12/17 [History] atenolol 50 mg tablet 50 mg PO QDAY #30 tab 09/24/17 [Rx] oxycodone-acetaminophen 5 mg-325 mg tablet 1 tab PO ONCE PRN 5 Days #30 tab 09/26/17 [Rx Confirmed 09/26/17] PFSH Medical History Type 2 diabetes mellitus without complications (Chronic) Small bowel obstruction (Resolved) Osteoarthritis (Chronic) DVT (deep venous thrombosis) (Chronic) Segmental and somatic dysfunction of pelvic region (Acute) Segmental and somatic dysfunction of sacral region (Acute) Segmental and somatic dysfunction of thoracic region (Acute) DDD (degenerative disc disease), lumbar (Chronic) Segmental and somatic dysfunction of lumbar region (Acute) Morbid obesity due to excess calories (Chronic) Paroxysmal atrial fibrillation (Chronic) Hyperlipidemia (Chronic) Hypertension (Chronic) whipple surgery (Inactive) Surgical History History of medial meniscus repair of right knee (Chronic) Hx of cholecystectomy (Chronic) History of total abdominal hysterectomy (Chronic) History of bowel resection (Chronic) History of bladder suspension procedure (Chronic) History of bilateral carpal tunnel release (Inactive) History of bladder suspension procedure (Inactive) History of hysterectomy (Inactive) S/P cholecystectomy (Inactive) sigmoid colon removed (Inactive) vaginal wall repaired (Inactive) Family History Mother Myocardial infarction Social History Smoking Status: Never smoker second hand exposure: No alcohol intake: current alcohol intake frequency: holidays/special occasions only substance use type: does not use caffeine: Yes what type of physical activity do you participate in: none frequency: does not exercise seatbelt use: always HPI RIGHT KNEE: Details: KATHERIN MARTIN is a 76 year old F here today for f/u right knee scope 05/15/17, she continues to have medial knee pain that is constant. She has no sharp pain. She has back pain as well that is not helped with the chiro care. She has mild swelling today but Denies numbness, tingling or other associated symptoms. She has weakness and instability when she steps down on the right knee. Ortho Exam Right Knee Skin/Wound: Yes healed Contralateral Normal: No Swelling: Yes Homans Sign: No Knee ROM: Yes ROM-Extension -20 to 0, Yes ROM-Flexion 0-140 Examination: Yes Med jt line tenderness, Yes Pain with flexion, Yes Pain with extention Office Procedures Ortho Injections Injections Yes Knee Right Details: Obtained consent for injection. Under sterile conditions, injected the patients right knee with a 10cc cocktail of 8cc bupivacaine and 2cc kenalog. The patient tolerated the injection well without any noted complication. Patient should call our office if redness develops, pain worsens or if they have any concerns. Office Meds Kenalog Performing Provider: Mendy Walker DO Administered by: Mendy Walker DO on 09/26/17 14:15 Dose Route Admin Location Lot Number Expiration DateNDC [employer] Set Up Operator 40 mg Intra-Articularrigh tkjuane [id number] 06/18/18 4492-4956-30 [employer] Assessment AND Plan 1. Osteoarthritis of right knee M17.11 Plan discussed with patient that bc she was hallucinating and walked on right knee 2 days after surgery and was supposed to be nonweight bearing for 2 weeks. discussed that d/t the amount of pain she has and failed care may be of benefit to see dr elaine and also patient has back issues and was referred to dr gutierrez for back issues. X-rays were reviewed. There is bone edema noted and evidence of surgery. OA progression. Gave Dr Gutierrez info for her back for injections and pain management. Treatment options today are do nothing or steroid injection. Also gave Dr Elaine info for consult on tka. Today will give an injection and get her in an diagnostic tech brace Follow up in [] or sooner if pain, swelling, numbness or associated symptoms, or concerns develop. All questions answered. Patient in agreement of plan. Orders Orders: Medications Discontinued: Kenalog (triamcinolone acetonide) Disco40 mg (4 mL) Intra- Articular ONCE NS Romario Nelson ntinued Reason: Office Medication has bee n Documented as given Plan Detail Other Medications New: oxycodone-acetaminophen 5-325 mg 1 tab PO ONCE 5 days PRN pain Mendy Walker DO take one to two tabs by mouth ever y 6 hours as needed for pain, stop all other narcotics Goals Decrease LBP Decrease inflammation Barriers DDD Obesity Previous knee surgery Coding Level of Care Code Off vis,est,level 3 Diagnoses Osteoarthritis of right knee M17.11 Additional Codes hat and cap parts cutter hand.knee ([id number]) 09/26/17 1442 <Electronically signed by Mendy Walker DO> Date Mendy Walker DO Cosigner Signature: Date (if applicable) CC: KNEE 4 OR MORE Observed: 09/26/2017 Status: F Source: [place] VIEWS 1:35 PM [facility] REPOSITORY [facility] Imaging Services [address] [place] [id number] Knee 4 or More Views MR#: [id number] Acct: [id number] Name: KATHERIN MARTIN Rep #: [id number] : 1940 F 76 From: Hayder Castellanos MD PCP: Moo Reaves MD Status: REG CLI Study: Knee 4 or More Views Date of Exam: 09/26/17 Exam# [id number] Ordering Dr: Mendy Walker DO STUDY: X-RAY - RIGHT KNEE REASON FOR EXAM: Female, 76 years old. Knee pain. TECHNIQUE: 4 view(s) of the knee. COMPARISON: May 28, 2017 FINDINGS: There is generalized osteopenia. There is an osteochondral defect of the medial femoral condyle with substantial sclerosis surrounding it. Normal visualized proximal tibia and fibula. Normal proximal tibiofibular articulation. There is moderate arthrosis of the medial compartment. There is mild arthrosis of the lateral and patellofemoral compartments. There is a superior patellar spur. The soft tissue structures are unremarkable. RAD/Knee 4 or More Views IMPRESSION: Osteopenia with osteochondral defect of the medial femoral condyle. Osteoarthritic changes as described. Electronically Signed: Hayder Castellanos MD at 14:58 EDT , Service support , CC: Mendy Walker DO; Moo Reaves MD Automation Controls Specialist: Signed PROGRESS Observed: 09/17/2017 Status: COMPLETED Source: [place] 11:13 AM [facility] [place] REPOSITORY O ID: [id number] Author: Moo Reaves Service: (none) Author Type: Physician Type: Progress Notes Filed: 10/08/2017 10:11 PM Note Text: Patient presents with: 4 month F/U SUBJECTIVE: Katherin Martin is a 76 year old year old lady here today for 4 month follow up appointment for review of medical conditions. Spinning sensation, especially with turns Ongoing knee pain--will see Sleep okay in lounge chair. But sleeping more and stress eating. Will see another therapist for second visit. Right thumb issue--pain in nail and redness around cuticle. Gel nails Ongoing stressors dealing with daughter. Sugars okay. PAST MEDICAL HISTORY Diagnosis Date - Abdominal pain, right upper quadrant 10/26/2005 - Abnormal ECG 11/27/2013 - Bicipital tenosynovitis 05/28/2005 - CARDIAC DYSRHYTHMIAS NEC 12/11/2004 - Decreased libido 11/21/2011 - Diverticulitis 12/18/13 - DIVERTICULITIS OF COLON W/O BLEED 12/11/2004 - Hyperparathyroidism , secondary, non-renal (HCC) 06/20/2016 - Incisional hernia 11/02/2013 - ISOLATED OR SPECIFIC PHOBIAS NEC 12/11/2004 - Left lower quadrant pain 11/02/2013 - LLQ pain 12/18/13 - Menopausal hot flushes 10/17/2011 - OBESITY NOS 12/11/2004 - OSTEOARTHROS NOS-OTHER SITE 12/11/2004 L knee arthritis - Other voice and resonance disorders 10/24/2011 - PEPTIC ULCER NOS 12/11/2004 - Transient disorder of initiating or maintaining sleep 02/14/2005 - Vaginal dryness, menopausal 10/17/2011 Current Outpatient Prescriptions: diltiazem CD (CARDIZEM CD, CARTIA XT) 240 mg 24 hr capsule TAKE 1 CAPSULE BY MOUTH ONCE DAILY. ALPRAZolam (XANAX) 0.5 mg tablet Take 1 tablet by mouth twice daily for 90 days. oxyCODONE-acetaminophen (PERCOCET) 7.5-325 mg tablet Take 1 tablet by mouth twice daily as needed for up to 30 days. For severe pain.Earliest Fill Date: 08/31/17 empagliflozin (JARDIANCE) 25 mg tablet Take 1 tablet by mouth once daily. ondansetron orally disintegrating (ZOFRAN ODT) 4 mg disintegrating tablet Take 1 tablet by mouth every 6 hours as needed. rivaroxaban (XARELTO) 20 mg tablet Take 1 tablet by mouth daily with dinner. sitaGLIPtin (JANUVIA) 100 mg tablet Take 1 tablet by mouth once daily. cholecalciferol, Vitamin D3, (VITAMIN D3) 50,000 unit cap capsule Take 1 capsule by mouth twice a week. bumetanide (BUMEX) 0.5 mg tablet Take 1 tablet by mouth once daily as needed. As directed for swelling codeine-guaiFENesin (GUAIFENESIN AC) 10-100 mg/5 mL syrup Take 5 mL by mouth once daily as needed for up to 90 days. Zolpidem (AMBIEN CR) 12.5 mg CR tablet Take 1 tablet by mouth daily at bedtime for 180 days. cyanocobalamin 1,000 mcg/mL soln Inject 1 mL intramuscularly once every month. fluticasone (FLONASE) 50 mcg/actuation nasal spray Use 2 Sprays in each nostril once daily. Rinse mouth after use. benzonatate (TESSALON PERLE) 100 mg capsule Take 1 capsule by mouth three times daily as needed. Lancets lancets Test blood sugar(s) once or twice daily. Dx: E11.9. Med: Invokana. One touch meter. pravastatin (PRAVACHOL) 20 mg tablet Take 1 tablet by mouth daily at bedtime. irbesartan (AVAPRO) 300 mg tablet Take 1 tablet by mouth once daily. nystatin (MYCOSTATIN) powder Apply 1 application to affected area three times daily. As directed for treatment of yeast infection blood sugar diagnostic (BLOOD GLUCOSE TEST) test strip Test blood sugar(s) once or twice daily. Dx: E11.9. Med: Invokana. One touch meter. esterified estrogens-methylTESTOSTERone (ESTRATEST HS) 0.625- 1.25 mg per tablet Take 1 tablet by mouth once daily. aluminum hydrox-magnesium carb (GAVISCON) 95-358 mg/15 mL suspension Take 15 mL by mouth every 6 hours as needed. icosapent ethyl (VASCEPA) 1 gram cap Take by mouth. No current facility-administered medications for this visit. OBJECTIVE: BP 118/66 (BP Site: Left Arm, BP Position: Sitting, BP Cuff Size: Large Adult) Pulse 67 Resp 20 Wt 104.6 kg (230 lb 9.6 oz) SpO2 97% BMI 40.85 kg/m? Patient is alert, oriented times 3, no apparent distress, affect is bright, reactive. Last 5 Encounter BP Readings: Date: BP: 09/17/2017 118/66 06/28/2017 124/82 05/29/2017 124/78 05/08/2017 138/84 04/11/2017 122/74 Last 5 Encounter Wt Readings: Date: Wt: 09/17/2017 104.6 kg (230 lb 9.6 oz) 06/28/2017 98.4 kg (217 lb) 05/29/2017 99.8 kg (220 lb) 05/08/2017 99.3 kg (219 lb) 04/11/2017 101.2 kg (223 lb) Heart: Regular rate, rhythm, no murmurs, gallops, rubs. Lungs: Clear to auscultation, bilaterally, breathing non labored. Ext: No cyanosis, clubbing, or edema. Component Latest Ref Rng AND Units 03/15/2017 03/15/2017 04/23/2017 08/15/2017 2:39 PM 2:39 PM Protein, Total 6.3 - 8.0 g/dL 7.5 Albumin 3.9 - 4.9 g/dL 4.6 Calcium 8.5 - 10.2 mg/dL 10.7 (H) Bilirubin, Total 0.2 - 1.3 mg/dL 0.5 Alkaline Phosphatase 32 - 117 U/L 83 AST 13 - 35 U/L 20 Glucose 74 - 99 mg/dL 167 (H) BUN 7 - 21 mg/dL 15 Creatinine 0.58 - 0.96 mg/dL 0.61 Sodium 136 - 144 mmol/L 138 Potassium 3.7 - 5.1 mmol/L 4.3 Chloride 97 - 105 mmol/L 98 CO2 22 - 30 mmol/L 21 (L) Anion Gap 9 - 18 mmol/L 19 (H) ALT 7 - 38 U/L 20 eGFR- >60 eGFR-All Other Races . >60 Cholesterol, Total <200 mg/dL 254 (H) Triglyceride <150 mg/dL 501 (H) HDL Cholesterol >39 mg/dL 43 LDL Cholesterol <100 mg/dL Unable to calculate due to increased Triglycerides. See LDL-Chol, Direct. Non HDL Cholesterol <130 mg/dL 211 (H) Fasting Time hrs 4 VLDL Cholesterol <30 mg/dL Unable to calculate due to increased Triglycerides. See LDL-Chol, Direct. 66 (H) TC:HDL Ratio <5.10 5.91 (H) LDL:HDL Ratio <2.54 Unable to calculate due to elevated Triglycerides. Creatinine, Ur Random (UCRR) 20 - 300 mg/dL 59.1 Albumin, Urine Random 0.0 - 23.0 mg/L <12.0 Albumin/Creat Ratio 0 - 30 mg/g Not calculated Hemoglobin A1C 4.3 - 5.6 % 8.2 (H) 7.0 (H) Estimated Average Glucose mg/dL 189 154 LDL Cholesterol, Direct <100 mg/dL 145 (H) Vitamin B12 232 - 1,245 pg/mL 558 TSH 0.400 - 5.500 uU/mL 3.530 2.190 Free T4 0.9 - 1.7 ng/dL 1.1 1.1 Ferritin 14.7 - 205.1 ng/mL 313.2 (H) Vitamin D 25 Hydroxy 31.0 - 80.0 ng/mL 67.2 Component Latest Ref Rng AND Units 09/03/2014 06/08/2015 03/15/2016 06/07/2016 12/04/2016 08/15/2017 Protein, Total 6.3 - 8.0 g/dL 7.3 7.5 6.9 7.5 Albumin 3.9 - 4.9 g/dL 4.4 4.3 4.5 4.6 Calcium 8.5 - 10.2 mg/dL 10.2 10.0 10.5 (H) 10.3 (H) 10.7 (H) 10.7 (H) Bilirubin, Total 0.2 - 1.3 mg/dL 0.5 0.4 0.4 0.5 Alkaline Phosphatase 32 - 117 U/L 66 92 80 83 AST 13 - 35 U/L 43 (H) 21 20 20 Glucose 74 - 99 mg/dL 148 (H) 202 (H) 147 (H) 173 (H) 174 (H) 167 (H) BUN 7 - 21 mg/dL 14 15 18 19 23 (H) 15 Creatinine 0.58 - 0.96 mg/dL 0.63 (L) 0.62 (L) 0.67 0.66 0.63 0.61 Sodium 136 - 144 mmol/L 138 139 138 139 137 138 Potassium 3.7 - 5.1 mmol/L 4.2 4.3 4.5 4.4 4.0 4.3 Chloride 97 - 105 mmol/L 99 102 101 99 99 98 CO2 22 - 30 mmol/L 20 (L) 24 22 21 (L) 20 (L) 21 (L) Anion Gap 9 - 18 mmol/L 19 (H) 13 15 19 (H) 18 19 (H) ALT 7 - 38 U/L 45 22 21 20 eGFR- >60 >60 >60 >60 >60 >60 eGFR-All Other Races . >60 >60 >60 >60 >60 >60 Component Latest Ref Rng AND Units 10/08/2013 01/04/2014 09/03/2014 06/08/2015 03/15/2016 03/15/2017 03/15/2017 2:39 PM 2:39 PM Triglyceride <150 mg/dL 297 (H) 355 (H) 304 (H) 353 (H) 294 (H) 501 (H) Cholesterol, Total <200 mg/dL 195 202 (H) 160 194 211 (H) 254 (H) HDL Cholesterol >39 mg/dL 38 (L) 34 (L) 34 (L) 30 (L) 45 (L) 43 VLDL Cholesterol <30 mg/dL 59 (H) 71 (H) 61 (H) 71 (H) 59 (H) Unable to calculate due to increased Triglycerides. See LDL-Chol, Direct. 66 (H) LDL Cholesterol <100 mg/dL 98 97 65 93 107 Unable to calculate due to increased Triglycerides. See LDL-Chol, Direct. Fasting Time hrs 12 12 12 FASTING 12 4 TC:HDL Ratio <5.10 5.13 (H) 5.94 (H) 4.71 6.47 (H) 4.69 5.91 (H) LDL:HDL Ratio <2.54 2.58 2.85 1.91 3.10 2.38 Unable to calculate due to elevated Triglycerides. Non HDL Cholesterol <130 mg/dL 157 168 (H) 126 164 (H) 166 (H) 211 (H) LDL Cholesterol, Direct <100 mg/dL 145 (H) Component Hemoglobin A1C Estimated Average Glucose Latest Ref Rng AND Units 4.3 - 5.6 % mg/dL 10/01/2011 6.4 (H) 137 10/08/2013 6.2 (H) 131 01/04/2014 6.4 (H) 137 09/03/2014 7.6 (H) 171 06/08/2015 7.5 (H) 169 01/05/2016 7.0 (H) 154 03/15/2016 7.1 (H) 157 06/07/2016 7.0 (H) 154 12/04/2016 7.8 (H) 177 03/15/2017 8.2 (H) 189 08/15/2017 7.0 (H) 154 ASSESSMENT AND PLAN: Encounter Diagnosis ICD-10-CM 1. Paronychia of finger of right hand L03.011 ciclopirox (LOPROX) 0.77 % cream thumb; maybe other finger getting affected 2. Essential hypertension I10 atenolol (TENORMIN) 50 mg tablet COMP METABOLIC PANEL CBC 3. Hypertriglyceridemia E78.1 LIPID PANEL BASIC 4. Vitamin D deficiency E55.9 5. Hyperparathyroidism, primary (HCC) E21.0 PTH INTACT BLD BASIC METABOLIC PNL 6. Elevated ferritin R79.89 FERRITIN BLD 7. Controlled type 2 diabetes mellitus without complication, without long-term current use of insulin (HCC) E11.9 HGB A1C COMP METABOLIC PANEL BASIC METABOLIC PNL 8. Acquired hypothyroidism E03.9 TSH BLD T3 FREE BLD T4 FREE/FREE THYROX 9. Primary osteoarthritis involving multiple joints M15.0 oxyCODONE-acetaminophen (PERCOCET) 7.5-325 mg tablet oxyCODONE-acetaminophen (PERCOCET) 7.5-325 mg tablet oxyCODONE-acetaminophen (PERCOCET) 7.5-325 mg tablet 10. Reactive depression F32.9 11. Class 2 severe obesity due to excess calories with serious comorbidity and body mass index (BMI) of 39.0 to 39.9 in adult (HCC) E66.01 Z68.39 12. Paroxysmal atrial fibrillation ([facility]) I48.0 Above issues addressed with patient. Patient involved in shared decision making for management of her medical issues. History and medications reviewed. Epic updated as needed Refills taken care of and meds adjusted as indicated after reviewed history, exam and labs. Health Maintenance reviewed. Updated record and/or ordered tests as recorded. Encouraged on efforts at healthy diet and regular exercise and adequate sleep. Stable with control of pain. No signs of diversion or abuse of medication(s); no adverse effects. Continue present management. [facility] website checked and validated. All prescriptions have been APPROPRIATELY filled. No suspicious activity was identified. 09/17/2017 by Moo Reaves MD Clinically euthyroid. TSH fine. Continue to adjust dose of replacement as indicated based on symptoms and labs. Update lipids--last TG 500's. Vitamin D level fine. Continue present management. Depression with some exacerbation as noted in HPI. Stable with control of A fib. Working on weight loss. Needs to keep working on diet and exercise with lifestyle changes for effective weight loss as well as control of lipids, sugar and BP. The majority of the visit was spent counseling and/or coordinating care for the patient. Owbq-ry-ctal time was at least 25 minutes. Moo Reaves MD CNOV Observed: 09/17/2017 Status: COMPLETED Source: [place] 11:00 AM [facility] REPOSITORY Office Visit (INTMWS) KATHERIN MARTIN ([id number]) 1940 F Date Time Provider Department 09/17/17 11:00 AM MOO RAEVES During your visit today, we recorded the following information about you: Pulse Respiration Blood pressure Weight 67/minute 20/minute 118/66 104.6 kg Moo Reaves MD 10/08/2017 10:11 PM Signed Patient presents with: 4 month F/U SUBJECTIVE: Katherin Martin is a 76 year old year old lady here today for 4 month follow up appointment for review of medical conditions. Spinning sensation, especially with turns Ongoing knee pain--will see Sleep okay in lounge chair. But sleeping more and stress eating. Will see another therapist for second visit. Right thumb issue--pain in nail and redness around cuticle. Gel nails Ongoing stressors dealing with daughter. Sugars okay. PAST MEDICAL HISTORY Diagnosis Date - Abdominal pain, right upper quadrant 10/26/2005 - Abnormal ECG 11/27/2013 - Bicipital tenosynovitis 05/28/2005 - CARDIAC DYSRHYTHMIAS NEC 12/11/2004 - Decreased libido 11/21/2011 - Diverticulitis 12/18/13 - DIVERTICULITIS OF COLON W/O BLEED 12/11/2004 - Hyperparathyroidism , secondary, non-renal (HCC) 06/20/2016 - Incisional hernia 11/02/2013 - ISOLATED OR SPECIFIC PHOBIAS NEC 12/11/2004 - Left lower quadrant pain 11/02/2013 - LLQ pain 12/18/13 - Menopausal hot flushes 10/17/2011 - OBESITY NOS 12/11/2004 - OSTEOARTHROS NOS-OTHER SITE 12/11/2004 L knee arthritis - Other voice and resonance disorders 10/24/2011 - PEPTIC ULCER NOS 12/11/2004 - Transient disorder of initiating or maintaining sleep 02/14/2005 - Vaginal dryness, menopausal 10/17/2011 Current Outpatient Prescriptions: diltiazem CD (CARDIZEM CD, CARTIA XT) 240 mg 24 hr capsule TAKE 1 CAPSULE BY MOUTH ONCE DAILY. ALPRAZolam (XANAX) 0.5 mg tablet Take 1 tablet by mouth twice daily for 90 days. oxyCODONE-acetaminophen (PERCOCET) 7.5-325 mg tablet Take 1 tablet by mouth twice daily as needed for up to 30 days. For severe pain.Earliest Fill Date: 08/31/17 empagliflozin (JARDIANCE) 25 mg tablet Take 1 tablet by mouth once daily. ondansetron orally disintegrating (ZOFRAN ODT) 4 mg disintegrating tablet Take 1 tablet by mouth every 6 hours as needed. rivaroxaban (XARELTO) 20 mg tablet Take 1 tablet by mouth daily with dinner. sitaGLIPtin (JANUVIA) 100 mg tablet Take 1 tablet by mouth once daily. cholecalciferol, Vitamin D3, (VITAMIN D3) 50,000 unit cap capsule Take 1 capsule by mouth twice a week. bumetanide (BUMEX) 0.5 mg tablet Take 1 tablet by mouth once daily as needed. As directed for swelling codeine-guaiFENesin (GUAIFENESIN AC) 10-100 mg/5 mL syrup Take 5 mL by mouth once daily as needed for up to 90 days. Zolpidem (AMBIEN CR) 12.5 mg CR tablet Take 1 tablet by mouth daily at bedtime for 180 days. cyanocobalamin 1,000 mcg/mL soln Inject 1 mL intramuscularly once every month. fluticasone (FLONASE) 50 mcg/actuation nasal spray Use 2 Sprays in each nostril once daily. Rinse mouth after use. benzonatate (TESSALON PERLE) 100 mg capsule Take 1 capsule by mouth three times daily as needed. Lancets lancets Test blood sugar(s) once or twice daily. Dx: E11.9. Med: Invokana. One touch meter. pravastatin (PRAVACHOL) 20 mg tablet Take 1 tablet by mouth daily at bedtime. irbesartan (AVAPRO) 300 mg tablet Take 1 tablet by mouth once daily. nystatin (MYCOSTATIN) powder Apply 1 application to affected area three times daily. As directed for treatment of yeast infection blood sugar diagnostic (BLOOD GLUCOSE TEST) test strip Test blood sugar(s) once or twice daily. Dx: E11.9. Med: Invokana. One touch meter. esterified estrogens-methylTESTOSTERone (ESTRATEST HS) 0.625- 1.25 mg per tablet Take 1 tablet by mouth once daily. aluminum hydrox-magnesium carb (GAVISCON) 95-358 mg/15 mL suspension Take 15 mL by mouth every 6 hours as needed. icosapent ethyl (VASCEPA) 1 gram cap Take by mouth. No current facility-administered medications for this visit. OBJECTIVE: BP 118/66 (BP Site: Left Arm, BP Position: Sitting, BP Cuff Size: Large Adult) Pulse 67 Resp 20 Wt 104.6 kg (230 lb 9.6 oz) SpO2 97% BMI 40.85 kg/m? Patient is alert, oriented times 3, no apparent distress, affect is bright, reactive. Last 5 Encounter BP Readings: Date: BP: 09/17/2017 118/66 06/28/2017 124/82 05/29/2017 124/78 05/08/2017 138/84 04/11/2017 122/74 Last 5 Encounter Wt Readings: Date: Wt: 09/17/2017 104.6 kg (230 lb 9.6 oz) 06/28/2017 98.4 kg (217 lb) 05/29/2017 99.8 kg (220 lb) 05/08/2017 99.3 kg (219 lb) 04/11/2017 101.2 kg (223 lb) Heart: Regular rate, rhythm, no murmurs, gallops, rubs. Lungs: Clear to auscultation, bilaterally, breathing non labored. Ext: No cyanosis, clubbing, or edema. Component Latest Ref Rng AND Units 03/15/2017 03/15/2017 04/23/2017 08/15/2017 2:39 PM 2:39 PM Protein, Total 6.3 - 8.0 g/dL 7.5 Albumin 3.9 - 4.9 g/dL 4.6 Calcium 8.5 - 10.2 mg/dL 10.7 (H) Bilirubin, Total 0.2 - 1.3 mg/dL 0.5 Alkaline Phosphatase 32 - 117 U/L 83 AST 13 - 35 U/L 20 Glucose 74 - 99 mg/dL 167 (H) BUN 7 - 21 mg/dL 15 Creatinine 0.58 - 0.96 mg/dL 0.61 Sodium 136 - 144 mmol/L 138 Potassium 3.7 - 5.1 mmol/L 4.3 Chloride 97 - 105 mmol/L 98 CO2 22 - 30 mmol/L 21 (L) Anion Gap 9 - 18 mmol/L 19 (H) ALT 7 - 38 U/L 20 eGFR- >60 eGFR-All Other Races . >60 Cholesterol, Total <200 mg/dL 254 (H) Triglyceride <150 mg/dL 501 (H) HDL Cholesterol >39 mg/dL 43 LDL Cholesterol <100 mg/dL Unable to calculate due to increased Triglycerides. See LDL-Chol, Direct. Non HDL Cholesterol <130 mg/dL 211 (H) Fasting Time hrs 4 VLDL Cholesterol <30 mg/dL Unable to calculate due to increased Triglycerides. See LDL-Chol, Direct. 66 (H) TC:HDL Ratio <5.10 5.91 (H) LDL:HDL Ratio <2.54 Unable to calculate due to elevated Triglycerides. Creatinine, Ur Random (UCRR) 20 - 300 mg/dL 59.1 Albumin, Urine Random 0.0 - 23.0 mg/L <12.0 Albumin/Creat Ratio 0 - 30 mg/g Not calculated Hemoglobin A1C 4.3 - 5.6 % 8.2 (H) 7.0 (H) Estimated Average Glucose mg/dL 189 154 LDL Cholesterol, Direct <100 mg/dL 145 (H) Vitamin B12 232 - 1,245 pg/mL 558 TSH 0.400 - 5.500 uU/mL 3.530 2.190 Free T4 0.9 - 1.7 ng/dL 1.1 1.1 Ferritin 14.7 - 205.1 ng/mL 313.2 (H) Vitamin D 25 Hydroxy 31.0 - 80.0 ng/mL 67.2 Component Latest Ref Rng AND Units 09/03/2014 06/08/2015 03/15/2016 06/07/2016 12/04/2016 08/15/2017 Protein, Total 6.3 - 8.0 g/dL 7.3 7.5 6.9 7.5 Albumin 3.9 - 4.9 g/dL 4.4 4.3 4.5 4.6 Calcium 8.5 - 10.2 mg/dL 10.2 10.0 10.5 (H) 10.3 (H) 10.7 (H) 10.7 (H) Bilirubin, Total 0.2 - 1.3 mg/dL 0.5 0.4 0.4 0.5 Alkaline Phosphatase 32 - 117 U/L 66 92 80 83 AST 13 - 35 U/L 43 (H) 21 20 20 Glucose 74 - 99 mg/dL 148 (H) 202 (H) 147 (H) 173 (H) 174 (H) 167 (H) BUN 7 - 21 mg/dL 14 15 18 19 23 (H) 15 Creatinine 0.58 - 0.96 mg/dL 0.63 (L) 0.62 (L) 0.67 0.66 0.63 0.61 Sodium 136 - 144 mmol/L 138 139 138 139 137 138 Potassium 3.7 - 5.1 mmol/L 4.2 4.3 4.5 4.4 4.0 4.3 Chloride 97 - 105 mmol/L 99 102 101 99 99 98 CO2 22 - 30 mmol/L 20 (L) 24 22 21 (L) 20 (L) 21 (L) Anion Gap 9 - 18 mmol/L 19 (H) 13 15 19 (H) 18 19 (H) ALT 7 - 38 U/L 45 22 21 20 eGFR- >60 >60 >60 >60 >60 >60 eGFR-All Other Races . >60 >60 >60 >60 >60 >60 Component Latest Ref Rng AND Units 10/08/2013 01/04/2014 09/03/2014 06/08/2015 03/15/2016 03/15/2017 03/15/2017 2:39 PM 2:39 PM Triglyceride <150 mg/dL 297 (H) 355 (H) 304 (H) 353 (H) 294 (H) 501 (H) Cholesterol, Total <200 mg/dL 195 202 (H) 160 194 211 (H) 254 (H) HDL Cholesterol >39 mg/dL 38 (L) 34 (L) 34 (L) 30 (L) 45 (L) 43 VLDL Cholesterol <30 mg/dL 59 (H) 71 (H) 61 (H) 71 (H) 59 (H) Unable to calculate due to increased Triglycerides. See LDL-Chol, Direct. 66 (H) LDL Cholesterol <100 mg/dL 98 97 65 93 107 Unable to calculate due to increased Triglycerides. See LDL-Chol, Direct. Fasting Time hrs 12 12 12 FASTING 12 4 TC:HDL Ratio <5.10 5.13 (H) 5.94 (H) 4.71 6.47 (H) 4.69 5.91 (H) LDL:HDL Ratio <2.54 2.58 2.85 1.91 3.10 2.38 Unable to calculate due to elevated Triglycerides. Non HDL Cholesterol <130 mg/dL 157 168 (H) 126 164 (H) 166 (H) 211 (H) LDL Cholesterol, Direct <100 mg/dL 145 (H) Component Hemoglobin A1C Estimated Average Glucose Latest Ref Rng AND Units 4.3 - 5.6 % mg/dL 10/01/2011 6.4 (H) 137 10/08/2013 6.2 (H) 131 01/04/2014 6.4 (H) 137 09/03/2014 7.6 (H) 171 06/08/2015 7.5 (H) 169 01/05/2016 7.0 (H) 154 03/15/2016 7.1 (H) 157 06/07/2016 7.0 (H) 154 12/04/2016 7.8 (H) 177 03/15/2017 8.2 (H) 189 08/15/2017 7.0 (H) 154 ASSESSMENT AND PLAN: Encounter Diagnosis ICD-10-CM 1. Paronychia of finger of right hand L03.011 ciclopirox (LOPROX) 0.77 % cream thumb; maybe other finger getting affected 2. Essential hypertension I10 atenolol (TENORMIN) 50 mg tablet COMP METABOLIC PANEL CBC 3. Hypertriglyceridemia E78.1 LIPID PANEL BASIC 4. Vitamin D deficiency E55.9 5. Hyperparathyroidism, primary ([facility]) E21.0 PTH INTACT BLD BASIC METABOLIC PNL 6. Elevated ferritin R79.89 FERRITIN BLD 7. Controlled type 2 diabetes mellitus without complication, without long-term current use of insulin ([facility]) E11.9 HGB A1C COMP METABOLIC PANEL BASIC METABOLIC PNL 8. Acquired hypothyroidism E03.9 TSH BLD T3 FREE BLD T4 FREE/FREE THYROX 9. Primary osteoarthritis involving multiple joints M15.0 oxyCODONE-acetaminophen (PERCOCET) 7.5-325 mg tablet oxyCODONE-acetaminophen (PERCOCET) 7.5-325 mg tablet oxyCODONE-acetaminophen (PERCOCET) 7.5-325 mg tablet 10. Reactive depression F32.9 11. Class 2 severe obesity due to excess calories with serious comorbidity and body mass index (BMI) of 39.0 to 39.9 in adult ([facility]) E66.01 Z68.39 12. Paroxysmal atrial fibrillation ([facility]) I48.0 Above issues addressed with patient. Patient involved in shared decision making for management of her medical issues. History and medications reviewed. Epic updated as needed Refills taken care of and meds adjusted as indicated after reviewed history, exam and labs. Health Maintenance reviewed. Updated record and/or ordered tests as recorded. Encouraged on efforts at healthy diet and regular exercise and adequate sleep. Stable with control of pain. No signs of diversion or abuse of medication(s); no adverse effects. Continue present management. PDMP website checked and validated. All prescriptions have been APPROPRIATELY filled. No suspicious activity was identified. 09/17/2017 by Moo Reaves MD Clinically euthyroid. TSH fine. Continue to adjust dose of replacement as indicated based on symptoms and labs. Update lipids--last TG 500's. Vitamin D level fine. Continue present management. Depression with some exacerbation as noted in HPI. Stable with control of A fib. Working on weight loss. Needs to keep working on diet and exercise with lifestyle changes for effective weight loss as well as control of lipids, sugar and BP. The majority of the visit was spent counseling and/or coordinating care for the patient. Wlqz-cl-ocrv time was at least 25 minutes. MD Moo Zepeda MD 09/17/2017 12:03 PM Signed May try taking half of the irbesartan pill daily to help with preventing low blood pressures that could be contributing to fatigue. May come in for BP check with the nurse if don't get a cuff for home. Get those massotherapy appointments scheduled. Referring Provider: MOO REAVES [[id number]] Allergies As of Date: 09/17/2017 Noted Allergy Reaction TORADOL (KETOROLAC TROMETHAMINE) 11/16/2004 7 - Swelling Comments: itching CYMBALTA (DULOXETINE) 06/28/2017 1 - Mental Status Change Comments: confusion; nightmares; may have been due to also UTI, etc but will not try again REDUX 11/05/2016 1 - Mental Status Change Comments: nightmares ROZEREM (RAMELTEON) 06/20/2016 5 - Intolerance Comments: [place] paralyzed and gave her nightmares Date Reviewed: 08/15/2017 Reviewed by: Emilie Allan LPN - Fully Assessed Reason for Visit: 4 month F/U [Other] Primary Visit Diagnosis:Paronychia of finger of right hand [L03.011] Comment:thumb; maybe other finger getting affected Other Visit Diagnoses:Essential hypertension [I10] Hypertriglyceridemia [E78.1] Vitamin D deficiency [E55.9] Hyperparathyroidism, primary (HCC) [E21.0] Elevated ferritin [R79.89] Controlled type 2 diabetes mellitus without complication, without long-term current use of insulin (HCC) [E11.9] Acquired hypothyroidism [E03.9] Primary osteoarthritis involving multiple joints [M15.0] Reactive depression [F32.9] Class 2 severe obesity due to excess calories with serious comorbidity and body mass index (BMI) of 39.0 to 39.9 in adult ([facility]) [E66.01, Z68.39] Paroxysmal atrial fibrillation ([facility]) [I48.0] Order(s):ciclopirox (LOPROX) 0.77 % creamApply 1 application to affected area twice daily.Disp: 15 gRfl: 0 LIPID PANEL BASIC [SQLIPB] Order #: [id number] FUTURE HGB A1C [OGDDV1R] Order #: [id number] FUTURE COMP METABOLIC PANEL [SQCMP] Order #: [id number] FUTURE TSH BLD [SQTSH] Order #: [id number] STANDING T3 FREE BLD [SQFREET3] Order #: [id number] STANDING T4 FREE/FREE THYROX [SQFT4] Order #: [id number] STANDING FERRITIN BLD [SQFERR] Order #: [id number] FUTURE CBC [SQCBC] Order #: [id number] FUTURE PTH INTACT BLD [SQPTHI] Order #: [id number] FUTURE BASIC METABOLIC PNL [SQBMP] Order #: [id number] FUTURE oxyCODONE-acetaminophen (PERCOCET) 7.5-325 mg tabletTake 1 tablet by mouth twice daily as needed for up to 30 days. For severe pain. Earliest Fill Date: 09/30/17Disp: 60 tabletRfl: 0 [START ON 10/30/2017] oxyCODONE-acetaminophen (PERCOCET) 7.5-325 mg tabletTake 1 tablet by mouth twice daily as needed for up to 30 days. For severe pain. Earliest Fill Date: 10/30/17Disp: 60 tabletRfl: 0 [START ON 11/29/2017] oxyCODONE-acetaminophen (PERCOCET) 7.5-325 mg tabletTake 1 tablet by mouth twice daily as needed for up to 30 days. For severe pain. Earliest Fill Date: 11/29/17Disp: 60 tabletRfl: 0 Prescriptions as of 09/17/2017 Sig: ATENOLOL 50 MG TABLET Take 1 tablet by mouth once d* OXYCODONE-ACETAMINOPHEN 7.5 M* Take 1 tablet by mouth twice * OXYCODONE-ACETAMINOPHEN 7.5 M* Take 1 tablet by mouth twice * OXYCODONE-ACETAMINOPHEN 7.5 M* Take 1 tablet by mouth twice * DILTIAZEM SR 240 MG 24 HR CAP TAKE 1 CAPSULE BY MOUTH ONCE * ALPRAZOLAM 0.5 MG TABLET Take 1 tablet by mouth twice * EMPAGLIFLOZIN 25 MG TABLET Take 1 tablet by mouth once d* ONDANSETRON 4 MG DISINTEGRATI* Take 1 tablet by mouth every * SITAGLIPTIN 100 MG TABLET Take 1 tablet by mouth once d* CHOLECALCIFEROL (VITAMIN D3) * Take 1 capsule by mouth twice* BUMETANIDE 0.5 MG TABLET Take 1 tablet by mouth once d* CYANOCOBALAMIN (VIT B-12) 1,0* Inject 1 mL intramuscularly o* FLUTICASONE 50 MCG/ACTUATION * Use 2 Sprays in each nostril * X ZOLPIDEM ER 12.5 MG TABLET,EX* Take 1 tablet by mouth daily * LANCETS Test blood sugar(s) once or t* PRAVASTATIN 20 MG TABLET Take 1 tablet by mouth daily * IRBESARTAN 300 MG TABLET Take 1 tablet by mouth once d* NYSTATIN 100,000 UNIT/GRAM TO* Apply 1 application to affect* BLOOD SUGAR DIAGNOSTIC STRIPS Test blood sugar(s) once or t* CICLOPIROX 0.77 % TOPICAL CRE* Apply 1 application to affect* RIVAROXABAN 20 MG TABLET Take 1 tablet by mouth daily * Patient not taking: Reported on 09/17/2017 CODEINE 10 MG-GUAIFENESIN 100* Take 5 mL by mouth once daily* Patient not taking: Reported on 09/17/2017 BENZONATATE 100 MG CAPSULE Take 1 capsule by mouth three* Patient not taking: Reported on 09/17/2017 ESTERIFIED ESTROGENS-METHYLTE* Take 1 tablet by mouth once d* Patient not taking: Reported on 09/17/2017 ALUMINUM HYDROX-MAGNESIUM CAR* Take 15 mL by mouth every 6 h* Patient not taking: Reported on 09/17/2017 ICOSAPENT ETHYL 1 GRAM CAPSULE Take by mouth. Problem List As Of Date 09/17/2017 Noted Resolved Primary osteoarthritis involving multiple joint*INVALID FOR* More... Obesity [E66.9] INVALID FOR* MYALGIA AND MYOSITIS NOS [[id number]] INVALID FOR* Chronic Pancreatitis [K86.1] INVALID FOR* Osteopenia [M85.80] INVALID FOR* More... Essential hypertension [I10] INVALID FOR* Hypertriglyceridemia [E78.1] INVALID FOR* Diabetes mellitus type II INVALID FOR*10/05/2013 Depression [F32.9] INVALID FOR* Atrial fibrillation [I48.91] INVALID FOR* Vitamin D deficiency [E55.9] INVALID FOR* Anxiety [F41.9] INVALID FOR* Controlled substance agreement signed [Z79.899] INVALID FOR* Diabetes (HCC) [E11.9] INVALID FOR*08/14/2015 Stress and adjustment reaction [F43.29] INVALID FOR* Chronic abdominal pain [R10.9, G89.29] INVALID FOR* ADD (attention deficit disorder) without hypera*INVALID FOR* Hyperparathyroidism , secondary, non-renal (HCC*INVALID FOR* Hyperparathyroidism, primary (HCC) [E21.0] INVALID FOR* Other instructions from your clinician: May try taking half of the irbesartan pill daily to help with preventing low blood pressures that could be contributing to fatigue. May come in for BP check with the nurse if don't get a cuff for home. Get those massotherapy appointments scheduled. Prescriptions ordered this encounter Disp Refills Start End CICLOPIROX 0.77 % TOPICAL CREAM 15 g 0 09/17/2017 Route: TOPICAL Sig: Apply 1 application to affected area twice daily. OXYCODONE-ACETAMINOPHEN 7.5 MG-325 M* 60 t* 0 09/30/2017 10/30/2017 Class: Print RX Route: ORAL Sig: Take 1 tablet by mouth twice daily as needed for up to 30 days. For severe pain. Earliest Fill Date: 09/30/17 OXYCODONE-ACETAMINOPHEN 7.5 MG-325 M* 60 t* 0 10/30/2017 11/29/2017 Class: Print RX Route: ORAL Sig: Take 1 tablet by mouth twice daily as needed for up to 30 days. For severe pain. Earliest Fill Date: 10/30/17 OXYCODONE-ACETAMINOPHEN 7.5 MG-325 M* 60 t* 0 11/29/2017 12/29/2017 Class: Print RX Route: ORAL Sig: Take 1 tablet by mouth twice daily as needed for up to 30 days. For severe pain. Earliest Fill Date: 11/29/17 Medications Discontinued During This Encounter oxyCODONE-acetaminophen (PERCOCET) 7* 60 t* 0 08/31/2017 09/17/2017 Class: Print RX Route: ORAL Sig: Take 1 tablet by mouth twice daily as needed for up to 30 days. For severe pain. Earliest Fill Date: 08/31/17 Disc: Reason for discontinue is not on file. Disposition: Return for as scheduled. Follow-up and Disposition History Recorded Encounter Status:Closed by MOO REAVES MD on 10/08/17 CHIROPRACTIC REPORT Observed: 09/11/2017 Status: F Source: [place] 7:25 AM [facility] [address] [place] [address] OFFICE VISIT Date of Service: 08/29/17 MR#: [id number] Acct: [id number] Name: KATHERIN MARTIN Rep #: [id number] : 1940 Provider: Ailin Spencer D.C. Age/Sex: 76/F [place] [facility] [place]: Signed Intake Vital Signs08/29/17 Height 5 ft 3 in 08/29/17 Weight: 230 lb 08/29/17 Body Mass Index (BMI) 40.7 Intake Visit Reasons: back pain Chief Complaint: low back pain Is patient in pain?: Yes Allergies duloxetine [From Cymbalta] Allergy (Verified 09/02/17 13:35) Other ramelteon [From Rozerem] Allergy (Verified 09/02/17 13:35) Other bupropion Adverse Reaction (Verified 09/02/17 13:35) Other bupropion HCl [From Wellbutrin] Adverse Reaction (Verified 09/02/17 13:35) Other dexfenfluramine HCl [From Redux] Adverse Reaction (Verified 09/02/17 13:35) Unknown hydrochlorothiazide Adverse Reaction (Verified 09/02/17 13:35) Other ketorolac tromethamine [From Toradol] Adverse Reaction (Verified 09/02/17 13:35) Itching oxaprozin [From Daypro] Adverse Reaction (Verified 09/02/17 13:35) Other Medications ALPRAZolam [Xanax] 0.5 mg PO QHS 12/11/13 [History Confirmed 09/02/17] Diltiazem CD [Cardizem CD] 240 mg PO DAILY 12/11/13 [History Confirmed 09/02/17] Sitagliptin Phosphate [Januvia] 100 mg PO DAILY 05/30/17 [History Confirmed 09/02/17] Empagliflozin [Jardiance] 25 mg PO DAILY #30 tab 06/12/17 [Rx Confirmed 09/02/17] Ondansetron [Zofran Odt] 4 mg PO Q6H PRN PRN #30 tab 06/12/17 [Rx Confirmed 09/02/17] Oxycodone [Oxyir] 5 - 10 mg PO Q4H PRN PRN 3 Days #12 tab 06/22/17 [Rx Confirmed 09/02/17] Cyanocobalamin [Vitamin B12] 100 mcg IM Q30D 07/31/17 [History Confirmed 09/02/17] Ergocalciferol [Vitamin D] 50,000 unit PO Q7D 07/31/17 [History Confirmed 09/02/17] Fluticasone Propionate [Flonase Allergy Relief] 1 spray INHALATION DAILY 07/31/17 [History Confirmed 09/02/17] Zolpidem Tartrate [Ambien Cr] 12.5 mg PO QHS PRN PRN 07/31/17 [History Confirmed 09/02/17] atenolol 50 mg tablet 50 mg PO QDAY #30 tab 09/04/17 [Rx] PFSH Medical History DDD (degenerative disc disease), lumbar (Chronic) Morbid obesity due to excess calories (Chronic) Paroxysmal atrial fibrillation (Chronic) Hyperlipidemia (Chronic) Hypertension (Chronic) DVT (deep venous thrombosis) (Chronic) Osteoarthritis (Chronic) Type 2 diabetes mellitus without complications (Chronic) Small bowel obstruction (Resolved) whipple surgery (Inactive) Surgical History History of bladder suspension procedure (Chronic) History of bowel resection (Chronic) History of medial meniscus repair of right knee (Chronic) History of total abdominal hysterectomy (Chronic) Hx of cholecystectomy (Chronic) History of bilateral carpal tunnel release (Inactive) History of bladder suspension procedure (Inactive) History of hysterectomy (Inactive) S/P cholecystectomy (Inactive) sigmoid colon removed (Inactive) vaginal wall repaired (Inactive) Family History Mother Myocardial infarction Social History Smoking Status: Never smoker second hand exposure: No alcohol intake: current alcohol intake frequency: holidays/special occasions only substance use type: does not use caffeine: Yes what type of physical activity do you participate in: none frequency: does not exercise seatbelt use: always HPI back pain : Chief Complaint: low back pain Visit Number: 5 Details: AKTHERIN MARTIN is a 76 year old F who presents with decreased low back pain. The patient states that recently she has been able to walk and stand for a longer period of time without any increased pain. Today Katherin rates her pain a 3/10 and describes it as tight ache that comes and goes, bending, lifting, and twisting all cause increased pain. Katherin denies any numbness, tingling or radiculopathy. Location: low back Duration: intermittent Aggravating or associated factors: frequeunt bending and twisting Relieving factors: chiro Pain Quality: aching, dull Exam Musc General: Yes joint tenderness (T10, T11, L3, L4, L5, L>R SI); no normal posture (R antalgia) or normal gait (favoring right leg) Thoracic/Lumbar Spine: thor and lumb spine abnorm to inspection (R antalgia), Lasegue's sign positive bilaterally, pain with thoraco-lumbar ROM with lateral flexion to the left, with rotation to the right, with rotation to the left and other (extension), paraspinal tenderness (slightly improved) on the left greater than right (L3-L5, L SI), thoraco-lumbar ROM limited (slightly improved) with lateral flexion to the left, with forward flexion, with rotation to the right and with rotation to the left, thoraco-lumbar spasm (slightly improved) on the left greater than right (lumbar) Sacroiliac joints: bilaterally Office Procedures Chiropractic Treatments Procedures Manipulation: 3-4 regions (T10, L3, L5, LIL) Assessment AND Plan Problems 1. DDD (degenerative disc disease), lumbar M51.36 2. Segmental and somatic dysfunction of lumbar region M99.03 3. Segmental and somatic dysfunction of thoracic region M99.02 4. Segmental and somatic dysfunction of pelvic region M99.05 Plan Patient is showing improvement since last visit. Follow up in 2 weeks. Orders Orders: Medications Discontinued: metoprolol succinate ER Discontinued Reason: O50 mg (2 x 25 mg) PO QDAY Brittany pak Completed Plan Detail Goals Decrease LBP Decrease inflammation Barriers DDD Obesity Previous knee surgery Follow Up 2 Weeks Coding Level of Care Code No Charge Diagnoses DDD (degenerative disc disease), lumbar M51.36 Segmental and somatic dysfunction of lumbar region M99.03 Segmental and somatic dysfunction of thoracic region M99.02 Segmental and somatic dysfunction of pelvic region M99.05 Additional Codes Procedures - Manipulation: 3-4 regions (02785) 09/11/17 0725 <Electronically signed by Ailin Spencer D.C.> Date Ailin Spencer D.C. Cosigner Signature: Date (if applicable) CC: SURGERY VISIT REPORT Observed: 09/09/2017 Status: F Source: [place] 1:29 PM [facility] [place] REPOS[facility]ORY [facility] [address] [place] [address] [address] [place] [address] OFFICE VISIT Date of Service: 09/02/17 MR#: [id number] Acct: [id number] Name: KATHERIN MARTIN Rep #: [id number] : 1940 Provider: Riley Garcia MD Age/Sex: 76/F Location: [facility] [place] Status: Signed Intake Vital Signs09/02/17 Height 5 ft 3 in 09/02/17 Weight: 221 lb Intake Visit Reasons: C-Scope Screening Chief Complaint: low back pain Integrity Consultant Required: No Is patient in pain?: Yes (back pain and right knee) Allergies duloxetine [From Cymbalta] Allergy (Verified 09/02/17 13:35) Other ramelteon [From Rozerem] Allergy (Verified 09/02/17 13:35) Other bupropion Adverse Reaction (Verified 09/02/17 13:35) Other bupropion HCl [From Wellbutrin] Adverse Reaction (Verified 09/02/17 13:35) Other dexfenfluramine HCl [From Redux] Adverse Reaction (Verified 09/02/17 13:35) Unknown hydrochlorothiazide Adverse Reaction (Verified 09/02/17 13:35) Other ketorolac tromethamine [From Toradol] Adverse Reaction (Verified 09/02/17 13:35) Itching oxaprozin [From Daypro] Adverse Reaction (Verified 09/02/17 13:35) Other Medications ALPRAZolam [Xanax] 0.5 mg PO QHS 12/11/13 [History Confirmed 09/02/17] Diltiazem CD [Cardizem CD] 240 mg PO DAILY 12/11/13 [History Confirmed 09/02/17] Sitagliptin Phosphate [Januvia] 100 mg PO DAILY 05/30/17 [History Confirmed 09/02/17] Empagliflozin [Jardiance] 25 mg PO DAILY #30 tab 06/12/17 [Rx Confirmed 09/02/17] Ondansetron [Zofran Odt] 4 mg PO Q6H PRN PRN #30 tab 06/12/17 [Rx Confirmed 09/02/17] Oxycodone [Oxyir] 5 - 10 mg PO Q4H PRN PRN 3 Days #12 tab 06/22/17 [Rx Confirmed 09/02/17] Cyanocobalamin [Vitamin B12] 100 mcg IM Q30D 07/31/17 [History Confirmed 09/02/17] Ergocalciferol [Vitamin D] 50,000 unit PO Q7D 07/31/17 [History Confirmed 09/02/17] Fluticasone Propionate [Flonase Allergy Relief] 1 spray INHALATION DAILY 07/31/17 [History Confirmed 09/02/17] Zolpidem Tartrate [Ambien Cr] 12.5 mg PO QHS PRN PRN 07/31/17 [History Confirmed 09/02/17] atenolol 50 mg tablet 50 mg PO QDAY #30 tab 09/04/17 [Rx] [facility] Medical History Type 2 diabetes mellitus without complications (Chronic) Small bowel obstruction (Resolved) Osteoarthritis (Chronic) DVT (deep venous thrombosis) (Chronic) Segmental and somatic dysfunction of pelvic region (Acute) Segmental and somatic dysfunction of sacral region (Acute) Segmental and somatic dysfunction of thoracic region (Acute) DDD (degenerative disc disease), lumbar (Chronic) Segmental and somatic dysfunction of lumbar region (Acute) Morbid obesity due to excess calories (Chronic) Paroxysmal atrial fibrillation (Chronic) Hyperlipidemia (Chronic) Hypertension (Chronic) whipple surgery (Inactive) Surgical History History of medial meniscus repair of right knee (Chronic) Hx of cholecystectomy (Chronic) History of total abdominal hysterectomy (Chronic) History of bowel resection (Chronic) History of bladder suspension procedure (Chronic) History of bilateral carpal tunnel release (Inactive) History of bladder suspension procedure (Inactive) History of hysterectomy (Inactive) S/P cholecystectomy (Inactive) sigmoid colon removed (Inactive) vaginal wall repaired (Inactive) Family History Mother Myocardial infarction Social History Smoking Status: Never smoker second hand exposure: No alcohol intake: current alcohol intake frequency: holidays/special occasions only substance use type: does not use caffeine: Yes what type of physical activity do you participate in: none frequency: does not exercise seatbelt use: always HPI HPI HPI: KATHERIN MARTIN, is a 76 F who presents to the office today for with multiple medical problems today. Of the most important she is worried that she may need to have another colonoscopy however her symptoms really are not significant and she has too many other problems at the present time that really need her individual attention. In January she had knee surgery they increased her Cymbalta and she had a reaction to her meds. She reinjured her right knee at that time which is more likely she thinks going to have to cause her to have another surgery. In addition she is lost her vzksxvsq-hv-quk secondary to hanging. It is obvious the patient is experiencing a lot of grief and guilt at this time she is moving her bowels she is concerned that she is going to have another hospitalization with a partial small bowel obstruction like she did in the past. I be reviewed with her her past history and have made some recommendations with regards to eating smaller amounts of food with more water and keeping herself well-hydrated will be the hugo. ROS General General: Yes weight change and fatigue; no appetite, colon cancer, breast cancer or weakness HEENT HEENT: No difficulty swallowing, eye injury, eye surgery, swollen glands or hoarseness Endo Endocrine: Yes diabetes mellitus; no thyroid disease, thyroid cancer, Hair loss, heat intolerance or cold intolerance Skin Skin: No rash or changing moles Musc Musculoskeletal: Yes back problems and arthritis; no rheumatoid arthritis, gout or joint pain Cardio Cardiovascular: Yes murmur and atrial fibrillation; no pacemaker, heart disease, high blood pressure, heart attack, heart stent, palpitations, shortness of breat with exertion or chest pain Psych Psychiatric: Yes depression; no anxiety or hearing voices Resp Respiratory: No shortness of breath, No sleep apnea, Yes cough, No COPD, No asthma, No emphysema, No wheezing Gastro Gastrointestinal: Yes abdominal pain, No nausea or vomiting, No diarrhea, Yes constipation, No blood in stool, No acid reflux, No hemorrhoids, No ulcers, No gallbladder problem, No black,tarry stools Yousuf Hematologic: No blood thinners, No blood disorders, No bleeding, No anemia, Yes blood clots Neuro Neurologic: No system reviewed and no additional complaints, except as docu, No as per HPI, No abnormal walking, No abnormal hearing, No abnormal movements, No abnormal speech, No behavioral changes, No burning sensations, No confusion, No seizure-like activity, No unsteadiness, No dizziness, No localized weakness, No frequent falls, No headache(s), No lack of coordination, No loss of vision, No memory loss, Yes numbness, No other visual disturbances, No radiating pain, No restless legs, No sensory deficit, No fainting, Yes tingling, No tremor(s), No weakness, No other Exam Chest Other: Clear to auscultation heart rates regular rate and rhythm Cardio Heart Sounds: murmur GI Other: Abdomen is soft and obese Assessment AND Plan Problems 1. Generalized abdominal pain R10.84 Plan At this point we want her to increase her fluid intake try to eat smaller more frequent meals and get on a stool softener such as MiraLAX to hopefully get her bowels moving on a regular basis. More importantly she needs to be seen by a psychiatrist or psychologist.'s obvious that the patient is experiencing significant guilt and is clinically depressed. I will defer this to her primary care physician Medications Discontinued: Plan Detail Goals Decrease LBP Decrease inflammation Barriers DDD Obesity Previous knee surgery Coding Level of Care Code Off vis,est,level 2 Diagnoses Generalized abdominal pain R10.84 Abdominal location: generalized 09/09/17 1329 <Electronically signed by Riley Garcia MD> Date Riley Garcia MD Cosigner Signature: Date (if applicable) CC: Moo Reaves MD ORTHOPEDIC VISIT Observed: 09/03/2017 Status: F Source: JAMIE REPORT 11:04 AM [facility] [place] REPOSITORY [facility] Orthopaedics AND Sports Medicine [address] [place] [address] OFFICE VISIT Date of Service: 08/13/17 MR#: [id number] Acct: [id number] Name: KATHERIN MARTIN Rep #: [id number] : 1940 Provider: Mendy Walker DO Age/Sex: 76/F [place] [facility] [place] [place]: Signed Intake Intake Visit Reasons: RIGHT KNEE Chief Complaint: Initial evaluation. Is patient in pain?: Yes Pain scale (1-10): 1 Allergies duloxetine [From Cymbalta] Allergy (Verified 09/02/17 13:35) Other ramelteon [From Rozerem] Allergy (Verified 09/02/17 13:35) Other bupropion Adverse Reaction (Verified 09/02/17 13:35) Other bupropion HCl [From Wellbutrin] Adverse Reaction (Verified 09/02/17 13:35) Other dexfenfluramine HCl [From Redux] Adverse Reaction (Verified 09/02/17 13:35) Unknown hydrochlorothiazide Adverse Reaction (Verified 09/02/17 13:35) Other ketorolac tromethamine [From Toradol] Adverse Reaction (Verified 09/02/17 13:35) Itching oxaprozin [From Daypro] Adverse Reaction (Verified 09/02/17 13:35) Other Medications ALPRAZolam [Xanax] 0.5 mg PO QHS 12/11/13 [History Confirmed 09/02/17] Diltiazem CD [Cardizem CD] 240 mg PO DAILY 12/11/13 [History Confirmed 09/02/17] Sitagliptin Phosphate [Januvia] 100 mg PO DAILY 05/30/17 [History Confirmed 09/02/17] Empagliflozin [Jardiance] 25 mg PO DAILY #30 tab 06/12/17 [Rx Confirmed 09/02/17] Ondansetron [Zofran Odt] 4 mg PO Q6H PRN PRN #30 tab 06/12/17 [Rx Confirmed 09/02/17] Oxycodone [Oxyir] 5 - 10 mg PO Q4H PRN PRN 3 Days #12 tab 06/22/17 [Rx Confirmed 09/02/17] Cyanocobalamin [Vitamin B12] 100 mcg IM Q30D 07/31/17 [History Confirmed 09/02/17] Ergocalciferol [Vitamin D] 50,000 unit PO Q7D 07/31/17 [History Confirmed 09/02/17] Fluticasone Propionate [Flonase Allergy Relief] 1 spray INHALATION DAILY 07/31/17 [History Confirmed 09/02/17] Zolpidem Tartrate [Ambien Cr] 12.5 mg PO QHS PRN PRN 07/31/17 [History Confirmed 09/02/17] metoprolol succinate ER 25 mg tablet,extended release 24 hr 50 mg PO QDAY #30 tab 08/22/17 [Rx Confirmed 09/02/17] PFSH Medical History Type 2 diabetes mellitus without complications (Chronic) Small bowel obstruction (Resolved) Osteoarthritis (Chronic) DVT (deep venous thrombosis) (Chronic) Segmental and somatic dysfunction of pelvic region (Acute) Segmental and somatic dysfunction of sacral region (Acute) Segmental and somatic dysfunction of thoracic region (Acute) DDD (degenerative disc disease), lumbar (Chronic) Segmental and somatic dysfunction of lumbar region (Acute) Morbid obesity due to excess calories (Chronic) Paroxysmal atrial fibrillation (Chronic) Hyperlipidemia (Chronic) Hypertension (Chronic) whipple surgery (Inactive) Surgical History History of medial meniscus repair of right knee (Chronic) Hx of cholecystectomy (Chronic) History of total abdominal hysterectomy (Chronic) History of bowel resection (Chronic) History of bladder suspension procedure (Chronic) History of bilateral carpal tunnel release (Inactive) History of bladder suspension procedure (Inactive) History of hysterectomy (Inactive) S/P cholecystectomy (Inactive) sigmoid colon removed (Inactive) vaginal wall repaired (Inactive) Family History Mother Myocardial infarction Social History Smoking Status: Never smoker second hand exposure: No alcohol intake: current alcohol intake frequency: holidays/special occasions only substance use type: does not use caffeine: Yes what type of physical activity do you participate in: none frequency: does not exercise seatbelt use: always HPI RIGHT KNEE: Details: KATHERIN MARTIN is a 76 year old F here today for s/p right knee medial meniscus repair, dos 05/15/17. Patient notes that she has falled recently, 3 times since her surgery, which has increased her pain. She notes that she had to have the squad come get her. She is currently in physical therapy which is helpful. She is ambulating with no assistive device. Patient has weakness in her right leg. Her incisions are healing. Patient just came from the hospital where she had a doppler which showed no blood clot. ROS Const Reports system reviewed and no additional complaints, except as docu Eyes Reports system reviewed and no additional complaints, except as docu ENT Reports system reviewed and no additional complaints, except as docu Card Reports system reviewed and no additional complaints, except as docu Resp Reports system reviewed and no additional complaints, except as docu GI Reports system reviewed and no additional complaints, except as docu Reports system reviewed and no additional complaints, except as docu Musc Reports muscle weakness Skin/Breast Reports system reviewed and no additional complaints, except as docu Neuro Yes system reviewed and no additional complaints, except as docu Psych Reports system reviewed and no additional complaints, except as docu Endo Reports system reviewed and no additional complaints, except as docu Ortho Exam Right Knee Skin/Wound: Yes healed Contralateral Normal: Yes Swelling: No Homans Sign: No Left Knee Skin/Wound: No CDI, No healing, No healed, No suture/hamlet removed, No wound cleaned, No wound care Assessment AND Plan Plan No issues today, patient having less pain but improving functionality. This time no further intervention is warranted. Patient is improving her activities of daily living. No calf pain or shortness of breath no fevers chills or other constitutional symptoms will continue doing exercises at home and with therapy as indicated. All questions answered patient agreement plan follow-up in 3 months or on an as-needed basis. Medications Discontinued: Plan Detail Goals Decrease LBP Decrease inflammation Barriers DDD Obesity Previous knee surgery Coding Level of Care Code Global Post Op 09/03/17 1104 <Electronically signed by Mendy Walker DO> Date Mendy Walker DO Cosigner Signature: Date (if applicable) CC: CHIROPRACTIC REPORT Observed: 08/29/2017 Status: F Source: [place] 1:55 PM [facility] [address] [place] [address] OFFICE VISIT Date of Service: 08/27/17 MR#: [id number] Acct: [id number] Name: KATHERIN MARTIN Rep #: [id number] : 1940 Provider: Ailin Spencer D.C. Age/Sex: 76/F [place] [facility] [place]: Signed Intake Vital Signs08/27/17 Height 5 ft 3 in 08/27/17 Weight: 230 lb 08/27/17 Body Mass Index (BMI) 40.7 Intake Visit Reasons: back pain Chief Complaint: low back pain Is patient in pain?: Yes Allergies duloxetine [From Cymbalta] Allergy (Verified 08/13/17 12:45) Other ramelteon [From Rozerem] Allergy (Verified 08/13/17 12:45) Other bupropion Adverse Reaction (Verified 08/13/17 12:45) Other bupropion HCl [From Wellbutrin] Adverse Reaction (Verified 08/13/17 12:45) Other dexfenfluramine HCl [From Redux] Adverse Reaction (Verified 08/13/17 12:45) Unknown hydrochlorothiazide Adverse Reaction (Verified 08/13/17 12:45) Other ketorolac tromethamine [From Toradol] Adverse Reaction (Verified 08/13/17 12:45) Itching oxaprozin [From Daypro] Adverse Reaction (Verified 08/13/17 12:45) Other Medications ALPRAZolam [Xanax] 0.5 mg PO QHS 12/11/13 [History Confirmed 08/07/17] Diltiazem CD [Cardizem CD] 240 mg PO DAILY 12/11/13 [History Confirmed 08/07/17] Sitagliptin Phosphate [Januvia] 100 mg PO DAILY 05/30/17 [History Confirmed 08/07/17] Empagliflozin [Jardiance] 25 mg PO DAILY #30 tab 06/12/17 [Rx Confirmed 08/07/17] Ondansetron [Zofran Odt] 4 mg PO Q6H PRN PRN #30 tab 06/12/17 [Rx Confirmed 08/07/17] Oxycodone [Oxyir] 5 - 10 mg PO Q4H PRN PRN 3 Days #12 tab 06/22/17 [Rx Confirmed 08/07/17] Cyanocobalamin [Vitamin B12] 100 mcg IM Q30D 07/31/17 [History Confirmed 08/07/17] Ergocalciferol [Vitamin D] 50,000 unit PO Q7D 07/31/17 [History Confirmed 08/07/17] Fluticasone Propionate [Flonase Allergy Relief] 1 spray INHALATION DAILY 07/31/17 [History Confirmed 08/07/17] Zolpidem Tartrate [Ambien Cr] 12.5 mg PO QHS PRN PRN 07/31/17 [History Confirmed 08/07/17] metoprolol succinate ER 25 mg tablet,extended release 24 hr 50 mg PO QDAY #30 tab 08/22/17 [Rx] PFSH Medical History DDD (degenerative disc disease), lumbar (Chronic) Morbid obesity due to excess calories (Chronic) Paroxysmal atrial fibrillation (Chronic) Hyperlipidemia (Chronic) Hypertension (Chronic) DVT (deep venous thrombosis) (Chronic) Osteoarthritis (Chronic) Type 2 diabetes mellitus without complications (Chronic) Small bowel obstruction (Resolved) whipple surgery (Inactive) Surgical History History of bladder suspension procedure (Chronic) History of bowel resection (Chronic) History of medial meniscus repair of right knee (Chronic) History of total abdominal hysterectomy (Chronic) Hx of cholecystectomy (Chronic) History of bilateral carpal tunnel release (Inactive) History of bladder suspension procedure (Inactive) History of hysterectomy (Inactive) S/P cholecystectomy (Inactive) sigmoid colon removed (Inactive) vaginal wall repaired (Inactive) Family History Mother Myocardial infarction Social History Smoking Status: Never smoker HPI back pain : Chief Complaint: low back pain Visit Number: 4 Details: KATHERIN MARTIN is a 76 year old F who presents with decreased low back pain. Katherin states that since her last treatment her low back pain has decreased, leaving her with only a dull ache banding across the low back. Bending, lifting, and twisting all still cause increased pain, and at times can be a sharp pain. Katherin denies any numbness, tingling, or radiculopathy although she states that recently when leaning back in her recliner has had a tight pain in the middle of the back. Location: low back Duration: intermittent Aggravating or associated factors: bending, lifting and twisting Relieving factors: chiro Pain Quality: aching, dull Exam Musc General: Yes joint tenderness (T10, T11, L3, L4, L5, L>R SI); no normal posture (R antalgia) or normal gait (favoring right leg) Thoracic/Lumbar Spine: thor and lumb spine abnorm to inspection (R antalgia), Lasegue's sign positive bilaterally, pain with thoraco-lumbar ROM with lateral flexion to the left, with rotation to the right, with rotation to the left and other (extension), paraspinal tenderness (slightly improved) on the left greater than right (L3-L5, L SI), thoraco-lumbar ROM limited with lateral flexion to the left, with forward flexion, with rotation to the right and with rotation to the left, thoraco-lumbar spasm (slightly improved) on the left greater than right (lumbar) Sacroiliac joints: bilaterally Office Procedures Chiropractic Treatments Procedures Manipulation: 3-4 regions (T10, L3, L5, LIL) Assessment AND Plan 1. Segmental and somatic dysfunction of pelvic region M99.05 Orders Orders: 2. Segmental and somatic dysfunction of thoracic region M99.02 Orders Orders: 3. DDD (degenerative disc disease), lumbar M51.36 Orders Orders: 4. Segmental and somatic dysfunction of lumbar region M99.03 Orders Orders: Plan Detail Other Orders Orders: Goals Decrease LBP Decrease inflammation Barriers DDD Obesity Previous knee surgery Follow Up 2 x week Coding Level of Care Code No Charge Diagnoses Segmental and somatic dysfunction of pelvic region M99.05 Segmental and somatic dysfunction of thoracic region M99.02 DDD (degenerative disc disease), lumbar M51.36 Segmental and somatic dysfunction of lumbar region M99.03 Additional Codes Procedures - Manipulation: 3-4 regions (47955) 08/29/17 1355 <Electronically signed by Ailin Spencer D.C.> Date Ailin Spencer D.C. Cosigner Signature: Date (if applicable) CC: CHIROPRACTIC REPORT Observed: 08/26/2017 Status: F Source: [place] 9:16 AM [facility] [address] [place], [place] [id number] OFFICE VISIT Date of Service: 08/20/17 MR#: [id number] Acct: [id number] Name: MARIOKATHERIN S Rep #: [id number] : 1940 Provider: Ailin Spencer D.C. Age/Sex: 76/F [place] [facility] [place]: Signed Intake Vital Signs08/20/17 Height 5 ft 3 in 08/20/17 Weight: 230 lb 08/20/17 Body Mass Index (BMI) 40.7 Intake Visit Reasons: back pain Chief Complaint: low back pain Is patient in pain?: Yes Allergies duloxetine [From Cymbalta] Allergy (Verified 08/13/17 12:45) Other ramelteon [From Rozerem] Allergy (Verified 08/13/17 12:45) Other bupropion Adverse Reaction (Verified 08/13/17 12:45) Other bupropion HCl [From Wellbutrin] Adverse Reaction (Verified 08/13/17 12:45) Other dexfenfluramine HCl [From Redux] Adverse Reaction (Verified 08/13/17 12:45) Unknown hydrochlorothiazide Adverse Reaction (Verified 08/13/17 12:45) Other ketorolac tromethamine [From Toradol] Adverse Reaction (Verified 08/13/17 12:45) Itching oxaprozin [From Daypro] Adverse Reaction (Verified 08/13/17 12:45) Other Medications ALPRAZolam [Xanax] 0.5 mg PO QHS 12/11/13 [History Confirmed 08/07/17] Diltiazem CD [Cardizem CD] 240 mg PO DAILY 12/11/13 [History Confirmed 08/07/17] Sitagliptin Phosphate [Januvia] 100 mg PO DAILY 05/30/17 [History Confirmed 08/07/17] Empagliflozin [Jardiance] 25 mg PO DAILY #30 tab 06/12/17 [Rx Confirmed 08/07/17] Ondansetron [Zofran Odt] 4 mg PO Q6H PRN PRN #30 tab 06/12/17 [Rx Confirmed 08/07/17] Oxycodone [Oxyir] 5 - 10 mg PO Q4H PRN PRN 3 Days #12 tab 06/22/17 [Rx Confirmed 08/07/17] Cyanocobalamin [Vitamin B12] 100 mcg IM Q30D 07/31/17 [History Confirmed 08/07/17] Ergocalciferol [Vitamin D] 50,000 unit PO Q7D 07/31/17 [History Confirmed 08/07/17] Fluticasone Propionate [Flonase Allergy Relief] 1 spray INHALATION DAILY 07/31/17 [History Confirmed 08/07/17] Zolpidem Tartrate [Ambien Cr] 12.5 mg PO QHS PRN PRN 07/31/17 [History Confirmed 08/07/17] metoprolol succinate ER 25 mg tablet,extended release 24 hr 50 mg PO QDAY #30 tab 08/22/17 [Rx] [facility] Medical History DDD (degenerative disc disease), lumbar (Chronic) Morbid obesity due to excess calories (Chronic) Paroxysmal atrial fibrillation (Chronic) Hyperlipidemia (Chronic) Hypertension (Chronic) DVT (deep venous thrombosis) (Chronic) Osteoarthritis (Chronic) Type 2 diabetes mellitus without complications (Chronic) Small bowel obstruction (Resolved) whipple surgery (Inactive) Surgical History History of bladder suspension procedure (Chronic) History of bowel resection (Chronic) History of medial meniscus repair of right knee (Chronic) History of total abdominal hysterectomy (Chronic) Hx of cholecystectomy (Chronic) History of bilateral carpal tunnel release (Inactive) History of bladder suspension procedure (Inactive) History of hysterectomy (Inactive) S/P cholecystectomy (Inactive) sigmoid colon removed (Inactive) vaginal wall repaired (Inactive) Family History Mother Myocardial infarction Social History Smoking Status: Never smoker HPI back pain : Chief Complaint: back pain Visit Number: 3 Details: KATHERIN MARTIN is a 76 year old F who presents with decreased low back pain. She states that after her last treatment her low back pain did decrease. Today Katherin rates her pain a 3/10 and describes it as a tight ache that is still worse on the R side, she denies any frequent spasms. Katherin denies any numbness or tingling. Location: R low back Duration: intermittent Aggravating or associated factors: bending, walking, and twisting Relieving factors: chiro Pain Quality: aching, dull, cramping Exam Musc General: Yes joint tenderness (T10, T11, L3, L4, L5, L>R SI); no normal posture (R antalgia) or normal gait (favoring right leg) Thoracic/Lumbar Spine: thor and lumb spine abnorm to inspection (R antalgia), Lasegue's sign positive bilaterally, pain with thoraco-lumbar ROM with lateral flexion to the left, with rotation to the right, with rotation to the left and other (extension), paraspinal tenderness (slightly improved) on the left greater than right (L3-L5, L SI), thoraco-lumbar ROM limited with lateral flexion to the left, with forward flexion, with rotation to the right and with rotation to the left, thoraco-lumbar spasm (slightly improved) on the left greater than right (lumbar) Sacroiliac joints: bilaterally Office Procedures Chiropractic Treatments Procedures Manipulation: 3-4 regions (T10, L3, L5, LIL) Assessment AND Plan 1. Segmental and somatic dysfunction of pelvic region M99.05 Orders Orders: 2. Segmental and somatic dysfunction of thoracic region M99.02 Orders Orders: 3. DDD (degenerative disc disease), lumbar M51.36 Orders Orders: 4. Segmental and somatic dysfunction of lumbar region M99.03 Orders Orders: Plan Detail Other Orders Orders: Goals Decrease LBP Decrease inflammation Barriers DDD Obesity Previous knee surgery Follow Up 2 x week Coding Level of Care Code No Charge Diagnoses Segmental and somatic dysfunction of pelvic region M99.05 Segmental and somatic dysfunction of thoracic region M99.02 DDD (degenerative disc disease), lumbar M51.36 Segmental and somatic dysfunction of lumbar region M99.03 Additional Codes Procedures - Manipulation: 3-4 regions (90827) 08/26/17 0916 <Electronically signed by Ailni Spencer D.C.> Date Ailin Spencer D.C. Cosigner Signature: Date (if applicable) CC: ECHO, COMPLETE W/ Observed: 08/19/2017 Status: F Source: [place] CONTRAST 2:50 PM [facility] [place] [facility] Cardiovascular Services [address] [place] [address] Echo Complete W/ Contrast 08/19/17927 MR#: [id number] Acct: [id number] Name: KATHERIN MARTIN Rep #: [id number] : 1940 76 From: Casa Puentes MD Attending Dr: Casa Puentes MD Status: REG CLI Ordering Dr: Casa Puentes MD Date: 08/19/17 Location: [facility] Sex: F C Admitted: Reason For Study: AFib/Flutter Procedure This was a 2D Doppler, Color Flow transthoracic echocardiogram. Exam performed in department. Left Ventricle Normal LV size. Left ventricular systolic function is normal. The estimated ejection fraction is 55 %. No regional wall motion abnormalities noted. Right Ventricle Normal RV size. Normal systolic function. Atria Normal left atrium. Normal right atrium. Intact atrial septum. Mitral Valve Normal mitral valve. Tricuspid Valve Normal tricuspid valve. Mild (1+) tricuspid valve insufficiency. Pulmonary artery systolic pressure is 27 mmHg. Aortic Valve The aortic valve is not well visualized. Pulmonic Valve The pulmonic valve is not well visualized. Great Vessels Normal aortic root. The pulmonary artery is normal size. Normal inferior vena cava. Pericardium/Pleural No pericardial effusion. Medication Diluted definity 2ml given slow IV push to enhance endocardial definition. Performed a rapid injection of agitated mix of 9 cc saline and 1cc air to assess for atrial septal defect. MMode/2D Measurements AND Calculations LVIDd: 4.5 cm IVSd: 1.3 cm Ao root diam: 3.5 cm LVIDs: 2.6 cm LVPWd: 1.1 cm LA dimension: 3.9 cm FS: 41.5 % LAV(MOD-bp): 55.7 ml LVAd ap4: 26.1 cm2 SV(MOD-sp4): 40.9 ml LAV(MOD-bp) Indexed: 27.1 ml/m2 EDV(MOD-sp4): 75.5 ml LAV(MOD-sp2): 56.2 ml EDV(sp4-el): 77.7 ml LAV(MOD-sp4): 53.4 ml LVAs ap4: 15.9 cm2 ESV(MOD-sp4): 34.7 ml ESV(sp4-el): 34.4 ml EF(MOD-sp4): 54.1 % EF(sp4-el): 55.7 % SV(sp4-el): 43.2 ml LA A4 area: 18.4 cm2 RA A4 area: 16.1 cm2 Time Measurements MV dec time: 0.23 sec Doppler Measurements AND Calculations MV E max daniel: 80.3 cm/sec Lat Peak E' Daniel: 7.3 cm/sec Med Peak E' Daniel: 7.6 cm/sec MV A max daniel: 108.4 cm/sec E/E' lat: 11.0 E/E' med: 10.6 MV E/A: 0.74 MV V2 max: 122.3 cm/sec MV P1/2t max daniel: 90.5 cm/sec Ao V2 max: 139.8 cm/sec MV max P.0 mmHg MV P1/2t: 81.2 msec Ao max P.8 mmHg MV V2 mean: 61.0 cm/sec MV dec slope: 326.5 cm/sec2 Ao V2 mean: 83.9 cm/sec MV mean P.8 mmHg MVA(P1/2t): 2.7 cm2 Ao mean P.3 mmHg MV V2 VTI: 36.6 cm Ao V2 VTI: 27.1 cm LV V1 max: 119.0 cm/sec TR max daniel: 248.7 cm/sec LV V1 max P.7 mmHg TR max P.7 mmHg LV V1 mean P.0 mmHg LV V1 mean: 64.0 cm/sec LV V1 VTI: 22.9 cm Interpretation Summary Normal LV size. Left ventricular systolic function is normal. The estimated ejection fraction is 55 %. Intact atrial septum Contrast injection was performed. Ordering Physician: Casa Puentes Referring Physician: Casa Puentes [facility] Performed By: Josse Turcios RCS 08/19/17 1450 Date Casa Puentes MD CC: Casa Puentes MD; Moo Raeves MD Date Dictated: 08/19/17 0928 Date Transcribed: 08/19/17 145 Automation Controls Specialist: Signed STRESS REPORT Observed: 08/19/2017 Status: F Source: [place] 10:33 AM [facility] [place] [facility] Cardiovascular Services [address] [place] [id number] MR#: [id number] Acct: [id number] Name: KATHERIN MARTIN Rep #: [id number] : 1940 76 From: Casa Puentes MD Primary Care: Moo Reaves MD Status: REG CLI Ordering Dr: Sex: F C Stress Test Report Pharmacologic myocardial perfusion stress test. 76-year-old lady with a history of paroxysmal atrial fibrillation. Medications Cardizem Zofran Xarelto Ambien. Stress protocol: Resting EKG demonstrates normal sinus rhythm with rate of 70 bpm resting blood pressure 7 and 30/84 mmHg. 0.4 mg regadenoson was infused per usual protocol followed by Intravenous and flush injection continuous EKG monitoring was performed maximum heart rate attained was 107 bpm to 73% maximum predicted heart rate maximum workload attained was 1 metabolic equivalent. The patient maintained sinus rhythm throughout the recording. The resting blood pressure is 130/82 with final blood pressure 120/70 mmHg. Myocardial perfusion protocol. 14.3 mCi of technetium 99m sestamibi was injected at rest. 0.4 mg of regadenoson was infused per usual protocol peak infusion 44.6 mCi of technetium 99m sestamibi was injected stress images were obtained stress and rest images were reconstructed and compared in the short axis vertical and horizontal axes gated images were also obtained. Perfusion SPECT analysis: Review of the stress images demonstrate normal uptake of tracer noted in all areas of the myocardium. The resting images similarly demonstrate normal uptake of tracer noted in all areas of the myocardium. No areas of reversibility are noted suggest ischemia and no previous infarct is noted. Gated SPECT analysis: The gated ejection fraction is noted to be 73%. Conclusion: Normal pharmacologic myocardial perfusion stress test. No evidence of atrial fibrillation noted. Preserved ejection fraction. 08/19/17 1033 <Electronically signed by Casa Puentes MD> Date Casa Puentes MD CC: Casa Puentes MD; Moo Reaves MD Date Dictated: 08/19/17 1028 Date Transcribed: 08/19/17 1028 Automation Controls Specialist: [place] Signed CHIROPRACTIC REPORT Observed: 08/15/2017 Status: F Source: [place] 3:47 PM [facility] [address] [place] [id number] OFFICE VISIT Date of Service: 08/15/17 MR#: [id number] Acct: [id number] Name: KATHERIN MARTIN Rep #: [id number] : 1940 Provider: Ailin Spencer D.C. Age/Sex: 76/F Location: [facility] Status: Signed Intake Vital Signs08/15/17 Height 5 ft 3 in 08/15/17 Weight: 230 lb 08/15/17 Body Mass Index (BMI) 40.7 Intake Visit Reasons: back pain Chief Complaint: low back pain Is patient in pain?: Yes Allergies duloxetine [From Cymbalta] Allergy (Verified 08/13/17 12:45) Other ramelteon [From Rozerem] Allergy (Verified 08/13/17 12:45) Other bupropion Adverse Reaction (Verified 08/13/17 12:45) Other bupropion HCl [From Wellbutrin] Adverse Reaction (Verified 08/13/17 12:45) Other dexfenfluramine HCl [From Redux] Adverse Reaction (Verified 08/13/17 12:45) Unknown hydrochlorothiazide Adverse Reaction (Verified 08/13/17 12:45) Other ketorolac tromethamine [From Toradol] Adverse Reaction (Verified 08/13/17 12:45) Itching oxaprozin [From Daypro] Adverse Reaction (Verified 08/13/17 12:45) Other Medications ALPRAZolam [Xanax] 0.5 mg PO QHS 12/11/13 [History Confirmed 08/07/17] Diltiazem CD [Cardizem CD] 240 mg PO DAILY 12/11/13 [History Confirmed 08/07/17] Sitagliptin Phosphate [Januvia] 100 mg PO DAILY 05/30/17 [History Confirmed 08/07/17] Empagliflozin [Jardiance] 25 mg PO DAILY #30 tab 06/12/17 [Rx Confirmed 08/07/17] Ondansetron [Zofran Odt] 4 mg PO Q6H PRN PRN #30 tab 06/12/17 [Rx Confirmed 08/07/17] Rivaroxaban [Xarelto] 20 mg PO DAILY@0600 #30 tab 06/12/17 [Rx Confirmed 08/07/17] Oxycodone [Oxyir] 5 - 10 mg PO Q4H PRN PRN 3 Days #12 tab 06/22/17 [Rx Confirmed 08/07/17] Cyanocobalamin [Vitamin B12] 100 mcg IM Q30D 07/31/17 [History Confirmed 08/07/17] Ergocalciferol [Vitamin D] 50,000 unit PO Q7D 07/31/17 [History Confirmed 08/07/17] Fluticasone Propionate [Flonase Allergy Relief] 1 spray INHALATION DAILY 07/31/17 [History Confirmed 08/07/17] Zolpidem Tartrate [Ambien Cr] 12.5 mg PO QHS PRN PRN 07/31/17 [History Confirmed 08/07/17] PFS Medical History DDD (degenerative disc disease), lumbar (Chronic) Morbid obesity due to excess calories (Chronic) Paroxysmal atrial fibrillation (Chronic) Hyperlipidemia (Chronic) Hypertension (Chronic) DVT (deep venous thrombosis) (Chronic) Osteoarthritis (Chronic) Type 2 diabetes mellitus without complications (Chronic) Small bowel obstruction (Resolved) whipple surgery (Inactive) Surgical History History of bladder suspension procedure (Chronic) History of bowel resection (Chronic) History of medial meniscus repair of right knee (Chronic) History of total abdominal hysterectomy (Chronic) Hx of cholecystectomy (Chronic) History of bilateral carpal tunnel release (Inactive) History of bladder suspension procedure (Inactive) History of hysterectomy (Inactive) S/P cholecystectomy (Inactive) sigmoid colon removed (Inactive) vaginal wall repaired (Inactive) Family History Mother Myocardial infarction Social History Smoking Status: Never smoker HPI back pain : Chief Complaint: back pain Visit Number: 2 Details: KATHERIN MARTIN is a 76 year old F who presents with low back pain. She states her pain has slightly increased rating it a 6/10, Katherin describes the pain as a tight sharp spasm that is worse on the R side. Bending, walking, lifting and prolonged sitting causes increased pain although she denies any numbness, tingling, or radiculopathy. Location: low back Duration: constant Aggravating or associated factors: walking, bending, lifting Relieving factors: NA Pain Quality: aching, dull, sharp, radiating Exam Musc General: Yes joint tenderness (T10, T11, L3, L4, L5, L>R SI); no normal posture (R antalgia) or normal gait (favoring right leg) Thoracic/Lumbar Spine: thor and lumb spine abnorm to inspection (R antalgia), Lasegue's sign positive bilaterally, pain with thoraco-lumbar ROM with lateral flexion to the left, with rotation to the right, with rotation to the left and other (extension), paraspinal tenderness on the left greater than right (L3-L5, L SI), thoraco-lumbar ROM limited with lateral flexion to the left, with forward flexion, with rotation to the right and with rotation to the left, thoraco-lumbar spasm on the left greater than right (lumbar) Sacroiliac joints: bilaterally Office Procedures Chiropractic Treatments Procedures Manipulation: 3-4 regions (T10, L3,L5, LIL) Assessment AND Plan Problems 1. Segmental and somatic dysfunction of pelvic region M99.05 2. Segmental and somatic dysfunction of thoracic region M99.02 3. DDD (degenerative disc disease), lumbar M51.36 4. Segmental and somatic dysfunction of lumbar region M99.03 Plan Continue with acute treatment plan. Orders Orders: Plan Detail Goals Decrease LBP Decrease inflammation Barriers DDD Obesity Previous knee surgery Follow Up 2x/wk/3 weeks Coding Level of Care Code No Charge Diagnoses Segmental and somatic dysfunction of pelvic region M99.05 Segmental and somatic dysfunction of thoracic region M99.02 DDD (degenerative disc disease), lumbar M51.36 Segmental and somatic dysfunction of lumbar region M99.03 Additional Codes Procedures - Manipulation: 3-4 regions ([id number]) 08/15/17 1547 <Electronically signed by Ailin Spencer D.C.> Date Ailin Spencer D.C. Cosigner Signature: Date (if applicable) CC: ORTHOPEDIC VISIT Observed: 08/15/2017 Status: F Source: JAMIE REPORT 1:16 PM [facility] REPOSITORY [facility] Orthopaedics AND Sports Medicine [address] [place], [place] [address] [address] OFFICE VISIT Date of Service: 08/13/17 MR#: [id number] Acct: [id number] Name: KATHERIN MARTIN Rep #: [id number] : 1940 Provider: Mendy Walker DO Age/Sex: 76/F Location: [facility] Status: Signed Intake Intake Visit Reasons: RIGHT KNEE Is patient in pain?: Yes Allergies duloxetine [From Cymbalta] Allergy (Verified 08/13/17 12:45) Other ramelteon [From Rozerem] Allergy (Verified 08/13/17 12:45) Other bupropion Adverse Reaction (Verified 08/13/17 12:45) Other bupropion HCl [From Wellbutrin] Adverse Reaction (Verified 08/13/17 12:45) Other dexfenfluramine HCl [From Redux] Adverse Reaction (Verified 08/13/17 12:45) Unknown hydrochlorothiazide Adverse Reaction (Verified 08/13/17 12:45) Other ketorolac tromethamine [From Toradol] Adverse Reaction (Verified 08/13/17 12:45) Itching oxaprozin [From Daypro] Adverse Reaction (Verified 08/13/17 12:45) Other Medications ALPRAZolam [Xanax] 0.5 mg PO QHS 12/11/13 [History Confirmed 08/07/17] Diltiazem CD [Cardizem CD] 240 mg PO DAILY 12/11/13 [History Confirmed 08/07/17] Sitagliptin Phosphate [Januvia] 100 mg PO DAILY 05/30/17 [History Confirmed 08/07/17] Empagliflozin [Jardiance] 25 mg PO DAILY #30 tab 06/12/17 [Rx Confirmed 08/07/17] Ondansetron [Zofran Odt] 4 mg PO Q6H PRN PRN #30 tab 06/12/17 [Rx Confirmed 08/07/17] Rivaroxaban [Xarelto] 20 mg PO DAILY@0600 #30 tab 06/12/17 [Rx Confirmed 08/07/17] Oxycodone [Oxyir] 5 - 10 mg PO Q4H PRN PRN 3 Days #12 tab 06/22/17 [Rx Confirmed 08/07/17] Cyanocobalamin [Vitamin B12] 100 mcg IM Q30D 07/31/17 [History Confirmed 08/07/17] Ergocalciferol [Vitamin D] 50,000 unit PO Q7D 07/31/17 [History Confirmed 08/07/17] Fluticasone Propionate [Flonase Allergy Relief] 1 spray INHALATION DAILY 07/31/17 [History Confirmed 08/07/17] Zolpidem Tartrate [Ambien Cr] 12.5 mg PO QHS PRN PRN 07/31/17 [History Confirmed 08/07/17] PFSH Medical History DDD (degenerative disc disease), lumbar (Chronic) Morbid obesity due to excess calories (Chronic) Paroxysmal atrial fibrillation (Chronic) Hyperlipidemia (Chronic) Hypertension (Chronic) DVT (deep venous thrombosis) (Chronic) Osteoarthritis (Chronic) Type 2 diabetes mellitus without complications (Chronic) Small bowel obstruction (Resolved) whipple surgery (Inactive) Surgical History History of bladder suspension procedure (Chronic) History of bowel resection (Chronic) History of medial meniscus repair of right knee (Chronic) History of total abdominal hysterectomy (Chronic) Hx of cholecystectomy (Chronic) History of bilateral carpal tunnel release (Inactive) History of bladder suspension procedure (Inactive) History of hysterectomy (Inactive) S/P cholecystectomy (Inactive) sigmoid colon removed (Inactive) vaginal wall repaired (Inactive) Family History Mother Myocardial infarction Social History Smoking Status: Never smoker HPI RIGHT KNEE: Details: KATHERIN MARTIN is a 76 year old F here today for s/p right knee medial meniscus repair, dos 05/15/17. Patient notes that she continues to have knee pain but her knee is improving. She has had 3 falls since her surgery. She states that she gets dizzy, her knee is unstable so she falls. Patient is in physical therapy currently and feels that is helpful. Denies numbness, tingling or other associated symptoms. ROS Const Reports system reviewed and no additional complaints, except as docu Eyes Reports system reviewed and no additional complaints, except as docu ENT Reports system reviewed and no additional complaints, except as docu Card Reports system reviewed and no additional complaints, except as docu Resp Reports system reviewed and no additional complaints, except as docu GI Reports system reviewed and no additional complaints, except as docu Reports system reviewed and no additional complaints, except as docu Musc Reports joint pain, Reports muscle weakness Skin/Breast Reports system reviewed and no additional complaints, except as docu Neuro Yes system reviewed and no additional complaints, except as docu Psych Reports system reviewed and no additional complaints, except as docu Endo Reports system reviewed and no additional complaints, except as docu Ortho Exam Right Knee Date of Surgery: 05/15/17 Skin/Wound: Yes CDI, Yes healed Contralateral Normal: Yes Homans Sign: No 1+: Effusion Knee ROM: Yes ROM-Flexion 0-140 (100), Yes ROM-Extension - 20 to 0 Examination: Yes Med jt line tenderness, Yes Pain with flexion Quad Atrophy: Yes Assessment AND Plan 1. Orthopedic aftercare Z47.89 Plan Continue to work on rom and strengthening and refer her to her PCP for follow up on her dizziness. She can d/c the anticoagulants due to the negative doppler. We can discuss aspiration and injection in 6wks. Follow up in 6wks or sooner if pain, swelling, numbness or associated symptoms, or concerns develop. All questions answered. Patient in agreement of plan. Plan Detail Goals Decrease LBP Decrease inflammation Barriers DDD Obesity Previous knee surgery Coding Level of Care Code Global Post Op Diagnoses Orthopedic aftercare Z47.89 08/15/17 1316 <Electronically signed by Mendy Walker DO> Date Mendy Walker DO Cosigner Signature: Date (if applicable) CC: FREE T4 Collected: 08/15/2017 Status: F Source: LAJAS 11:49 AM [facility] [place] REPOSITORY TYPE CODE TESTS RESULT OUT OF RANGE REFERENCE UNITS LAB FT4 0.9-1.7 ng/dL Free T4 1.1 Performed By: #### FT4, CMP, TSH, HBA1C, VITD #### [facility] [address] [place], [place] [address] COMP METABOLIC PANEL Collected: 08/15/2017 Status: F Source: LAJAS 11:49 AM [facility] [place] REPOSITORY TYPE CODE TESTS RESULT OUT OF REFERENCE UNITS RANGE LAB TP 6.3-8.0 g/dL Protein, Total 7.5 LAB ALB 3.9-4.9 g/dL Albumin 4.6 LAB CA 8.5-10.2 mg/dL Calcium, High Total 10.7 LAB TBIL 0.2-1.3 mg/dL Bilirubin, Total 0.5 LAB ALKP 32-117 U/L Alkaline Phosphatase 83 LAB AST 13-35 U/L AST 20 LAB GLU 74-99 mg/dL Glucose High 167 Result Comment: The [place] [employer] (ADA) provides guidance for cutoff values for fasting glucose and random glucose. The ADA defines fasting as no caloric intake for at least 8 hours. Fas ting plasma glucose results between 100 to 125 mg/dL indicate increased risk for diabetes (prediabetes). Fasting plasma glucose results greater than or equal to 126 mg/dL meet the criteria for diagnosis of diabetes. In the absence of unequivocal hyperglycemia, results should be confirmed by repeat testing. In a patient with classic symptoms of hyperglycemia or hyperglycemic crisis, random plasma glucose results greater than or equal to 200 mg/dL meet the criteria for diagnosis of diabetes. Reference: Standards of Medical Care in Diabetes 2016, [place] [employer] Association. Diabetes Care. 2016.39(Suppl 1). LAB BUN 7-21 mg/dL BUN 15 LAB CRET 0.58-0.96 mg/dL Creatinine 0.61 LAB NA 136-144 mmol/L Sodium 138 LAB K 3.7-5.1 mmol/L Potassium 4.3 LAB CL 97-105 mmol/L Chloride 98 LAB CO2 22-30 mmol/L Low CO2 21 LAB AGAP 9-18 mmol/L Anion Gap High 19 LAB ALT 7-38 U/L ALT 20 LAB GFRAA eGFR- Amer. >60 LAB GFRNAA . eGFR-All Other Races >60 Result Comment: eGFR (Estimated GFR) Units of measure: mL/min/1.73 meters squared eGFR is derived from the reexpressed MDRD Study equation using the following parameters: serum creatinine, age, gender and race. The creatinine assay has been calibrated to be traceable to IDMS. An eGFR <60 mL/min/1.73m2 for >3 months is consistent with chronic kidney disease. Refer to KDOQI guidelines for clinical interpretation. In patients with unstable renal function, e.g. those with acute kidney injury, the eGFR may not accurately reflect actual GFR. Performed By: #### FT4, CMP, TSH, HBA1C, VITD #### [facility] [address] [place], [place] [address] TSH Collected: 08/15/2017 Status: F Source: LAJAS 11:49 AM [facility] REPOSITORY TYPE CODE TESTS RESULT OUT OF RANGE REFERENCE UNITS LAB TSH 0.400-5.500 uU/mL TSH 2.190 Performed By: #### FT4, CMP, TSH, HBA1C, VITD #### [place] [id number] [place] [id number] HEMOGLOBIN A1C Collected: 08/15/2017 Status: F Source: LAJAS 11:49 AM [facility] REPOSITORY TYPE CODE TESTS RESULT OUT OF REFERENCE UNITS RANGE LAB HGBA1C 4.3-5.6 % High Hemoglobin A1c 7.0 LAB HBA0 mg/dL Est. Average Glucose 154 Result Comment: eAG: (Estimated average glucose) is a calculated value from HgbA1c and is food service representative of the average blood glucose level in the last 2-3 month period. Performed By: #### FT4, CMP, TSH, HBA1C, VITD #### [facility] [place] [id number] VITAMIN D 25 HYDROXY Collected: 08/15/2017 Status: F Source: LAJAS 11:49 AM [facility] REPOSITORY TYPE CODE TESTS RESULT OUT OF REFERENCE UNITS RANGE LAB VITD 31.0-80.0 ng/mL Vitamin D 25 67.2 Hydroxy Result Comment: Classification of 25 [place] Vitamin D status: Insufficiency/Moderate Deficiency: < or = 30 ng/mL Sufficiency/Optimal Levels: 31 to 80 ng/mL Toxicity: > 100 ng/mL Test performed by chemiluminescent immunoassay. Performed By: #### FT4, CMP, TSH, HBA1C, VITD #### [facility] [place] [id number] PROGRESS Observed: 08/15/2017 Status: COMPLETED Source: LAJAS 10:00 AM [facility] REPOSITORY HNO ID: [id number] Author: Moo Reaves Service: (none) Author Type: Physician Type: Progress Notes Filed: 08/28/2017 5:34 PM Note Text: Patient presents for DM SMA with Dr. Reaves and Vianey Yousif, Kari GOALS: A1c < 8% Katherin Martin is a 76 year old female was last seen by PCP, Dr. Reaves on 06/28/17. At last PCP visit no DM medication changes were made. Stressors Stress eating, drinking soda Sweets, candy, ice cream ? Patient denies CP, SOB, BISWAS, blurred vision, dizziness or lightheadedness ? Patient denies symptoms of hypoglycemia (sweating, anxiety, palpitations, hunger, and tremor) ? Patient denies symptoms hyperglycemia (polyuria, polydipsia) ? Patient denies potential medication adverse effects ALLERGIES Allergen Reactions - Toradol [Ketorolac * Swelling itching - Cymbalta [Duloxetin* Mental Status Change confusion; nightmares; may have been due to also UTI, etc but will not try again - Redux Mental Status Change nightmares - Rozerem [Ramelteon] Intolerance [place] paralyzed and gave her nightmares PAST MEDICAL HISTORY Diagnosis Date - Abdominal pain, right upper quadrant 10/26/2005 - Abnormal ECG 11/27/2013 - Bicipital tenosynovitis 05/28/2005 - CARDIAC DYSRHYTHMIAS NEC 12/11/2004 - Decreased libido 11/21/2011 - Diverticulitis 12/18/13 - DIVERTICULITIS OF COLON W/O BLEED 12/11/2004 - Hyperparathyroidism , secondary, non-renal (HCC) 06/20/2016 - Incisional hernia 11/02/2013 - ISOLATED OR SPECIFIC PHOBIAS NEC 12/11/2004 - Left lower quadrant pain 11/02/2013 - LLQ pain 12/18/13 - Menopausal hot flushes 10/17/2011 - OBESITY NOS 12/11/2004 - OSTEOARTHROS NOS-OTHER SITE 12/11/2004 L knee arthritis - Other voice and resonance disorders 10/24/2011 - PEPTIC ULCER NOS 12/11/2004 - Transient disorder of initiating or maintaining sleep 02/14/2005 - Vaginal dryness, menopausal 10/17/2011 Current Outpatient Prescriptions: oxyCODONE-acetaminophen (PERCOCET) 7.5-325 mg tablet Take 1 tablet by mouth twice daily as needed for up to 30 days. For severe pain.Earliest Fill Date: 07/31/17 empagliflozin (JARDIANCE) 25 mg tablet Take 1 tablet by mouth once daily. ondansetron orally disintegrating (ZOFRAN ODT) 4 mg disintegrating tablet Take 1 tablet by mouth every 6 hours as needed. rivaroxaban (XARELTO) 20 mg tablet Take 1 tablet by mouth daily with dinner. sitaGLIPtin (JANUVIA) 100 mg tablet Take 1 tablet by mouth once daily. cholecalciferol, Vitamin D3, (VITAMIN D3) 50,000 unit cap capsule Take 1 capsule by mouth twice a week. bumetanide (BUMEX) 0.5 mg tablet Take 1 tablet by mouth once daily as needed. As directed for swelling codeine-guaiFENesin (GUAIFENESIN AC) 10-100 mg/5 mL syrup Take 5 mL by mouth once daily as needed for up to 90 days. ALPRAZolam (XANAX) 0.5 mg tablet TAKE 1 TABLET BY MOUTH TWICE A DAY Zolpidem (AMBIEN CR) 12.5 mg CR tablet Take 1 tablet by mouth daily at bedtime for 180 days. cyanocobalamin 1,000 mcg/mL soln Inject 1 mL intramuscularly once every month. fluticasone (FLONASE) 50 mcg/actuation nasal spray Use 2 Sprays in each nostril once daily. Rinse mouth after use. benzonatate (TESSALON PERLE) 100 mg capsule Take 1 capsule by mouth three times daily as needed. Lancets lancets Test blood sugar(s) once or twice daily. Dx: E11.9. Med: Invokana. One touch meter. pravastatin (PRAVACHOL) 20 mg tablet Take 1 tablet by mouth daily at bedtime. irbesartan (AVAPRO) 300 mg tablet Take 1 tablet by mouth once daily. nystatin (MYCOSTATIN) powder Apply 1 application to affected area three times daily. As directed for treatment of yeast infection blood sugar diagnostic (BLOOD GLUCOSE TEST) test strip Test blood sugar(s) once or twice daily. Dx: E11.9. Med: Invokana. One touch meter. diltiazem XR (DILTIA XT) 240 mg 24 hr capsule Take 1 capsule by mouth once daily. esterified estrogens-methylTESTOSTERone (ESTRATEST HS) 0.625- 1.25 mg per tablet Take 1 tablet by mouth once daily. aluminum hydrox-magnesium carb (GAVISCON) 95-358 mg/15 mL suspension Take 15 mL by mouth every 6 hours as needed. icosapent ethyl (VASCEPA) 1 gram cap Take by mouth. No current facility-administered medications for this visit. Last 3 Encounter BP Readings: Date: BP: 06/28/2017 124/82 05/29/2017 124/78 05/08/2017 138/84 Wt: 98.4 kg (217 lb) BMI: 38.44 kg/(m2) LABS Hemoglobin A1C (%) Date Value 08/15/2017 7.0 03/15/2017 8.2 ) CMP: Glucose 167 08/15/2017 BUN 15 08/15/2017 Creatinine 0.61 08/15/2017 Sodium 138 08/15/2017 Potassium 4.3 08/15/2017 Chloride 98 08/15/2017 CO2 21 08/15/2017 Protein, Total 7.5 08/15/2017 Albumin 4.6 08/15/2017 Calcium 10.7 08/15/2017 Alkaline Phosphatase 83 08/15/2017 Bilirubin, Total 0.5 08/15/2017 AST 20 08/15/2017 ALT 20 08/15/2017 Last Lipid Panel Lab Results Component Value Date CHOL 254 03/15/2017 Lab Results Component Value Date HDL 43 03/15/2017 Lab Results Component Value Date LDL 145 03/15/2017 Lab Results Component Value Date TG 501 03/15/2017 Albumin/Creat Ratio (mg/g) Date Value 04/23/2017 Not calculated ASSESSMENT/PLAN: 1. Controlled type 2 diabetes mellitus without complication, without long-term current use of insulin (HCC) - ICD9: 250.00, ICD10: E11.9 Controlled. - Continue current medications - Check A1c, CMP Patient is scheduled to see PCP 09/17. Patient to return to clinic for PharmD f/u if requested by patient or PCP. Patient verbalized understanding of instructions. Dr. Reaves and Vianey Yousif, PharmD The patient was seen; chart reviewed and I concur with the above evaluation and plan. PharmD and I discussed with DM SMA group medications for management of DM, HTN and lipids. Also reviewed diet and exercise to help with control of DM. Discussed with each patient individual meds and management of their diabetes issues. Discussed with group stressors. Group provided emotional support. Noted that had been worried about taking the two meds had been discharged on for DM from recent hospitalization. Reassured that fine to stay on both meds to control sugars. Moo Reaves MD CNOV Observed: 08/15/2017 Status: COMPLETED Source: LAJAS 10:00 AM [facility] REPOSITORY Office Visit (INTMWS) KATHERIN MARTIN ([id number]) 1940 F Date Time Provider Department 08/15/17 10:00 AM MOO REAVES INTMWS During your visit today, we recorded the following information about you: Moo Reaves MD 08/28/2017 5:34 PM Signed Patient presents for DM SMA with Dr. Reaves and Vianey Yousif, ShivD GOALS: A1c < 8% Katherin Martin is a 76 year old female was last seen by PCP, Dr. Reaves on 06/28/17. At last PCP visit no DM medication changes were made. Stressors Stress eating, drinking soda Sweets, candy, ice cream ? Patient denies CP, SOB, BISWAS, blurred vision, dizziness or lightheadedness ? Patient denies symptoms of hypoglycemia (sweating, anxiety, palpitations, hunger, and tremor) ? Patient denies symptoms hyperglycemia (polyuria, polydipsia) ? Patient denies potential medication adverse effects ALLERGIES Allergen Reactions - Toradol [Ketorolac * Swelling itching - Cymbalta [Duloxetin* Mental Status Change confusion; nightmares; may have been due to also UTI, etc but will not try again - Redux Mental Status Change nightmares - Rozerem [Ramelteon] Intolerance [place] paralyzed and gave her nightmares PAST MEDICAL HISTORY Diagnosis Date - Abdominal pain, right upper quadrant 10/26/2005 - Abnormal ECG 11/27/2013 - Bicipital tenosynovitis 05/28/2005 - CARDIAC DYSRHYTHMIAS NEC 12/11/2004 - Decreased libido 11/21/2011 - Diverticulitis 12/18/13 - DIVERTICULITIS OF COLON W/O BLEED 12/11/2004 - Hyperparathyroidism , secondary, non-renal (HCC) 06/20/2016 - Incisional hernia 11/02/2013 - ISOLATED OR SPECIFIC PHOBIAS NEC 12/11/2004 - Left lower quadrant pain 11/02/2013 - LLQ pain 12/18/13 - Menopausal hot flushes 10/17/2011 - OBESITY NOS 12/11/2004 - OSTEOARTHROS NOS-OTHER SITE 12/11/2004 L knee arthritis - Other voice and resonance disorders 10/24/2011 - PEPTIC ULCER NOS 12/11/2004 - Transient disorder of initiating or maintaining sleep 02/14/2005 - Vaginal dryness, menopausal 10/17/2011 Current Outpatient Prescriptions: oxyCODONE-acetaminophen (PERCOCET) 7.5-325 mg tablet Take 1 tablet by mouth twice daily as needed for up to 30 days. For severe pain.Earliest Fill Date: 07/31/17 empagliflozin (JARDIANCE) 25 mg tablet Take 1 tablet by mouth once daily. ondansetron orally disintegrating (ZOFRAN ODT) 4 mg disintegrating tablet Take 1 tablet by mouth every 6 hours as needed. rivaroxaban (XARELTO) 20 mg tablet Take 1 tablet by mouth daily with dinner. sitaGLIPtin (JANUVIA) 100 mg tablet Take 1 tablet by mouth once daily. cholecalciferol, Vitamin D3, (VITAMIN D3) 50,000 unit cap capsule Take 1 capsule by mouth twice a week. bumetanide (BUMEX) 0.5 mg tablet Take 1 tablet by mouth once daily as needed. As directed for swelling codeine-guaiFENesin (GUAIFENESIN AC) 10-100 mg/5 mL syrup Take 5 mL by mouth once daily as needed for up to 90 days. ALPRAZolam (XANAX) 0.5 mg tablet TAKE 1 TABLET BY MOUTH TWICE A DAY Zolpidem (AMBIEN CR) 12.5 mg CR tablet Take 1 tablet by mouth daily at bedtime for 180 days. cyanocobalamin 1,000 mcg/mL soln Inject 1 mL intramuscularly once every month. fluticasone (FLONASE) 50 mcg/actuation nasal spray Use 2 Sprays in each nostril once daily. Rinse mouth after use. benzonatate (TESSALON PERLE) 100 mg capsule Take 1 capsule by mouth three times daily as needed. Lancets lancets Test blood sugar(s) once or twice daily. Dx: E11.9. Med: Invokana. One touch meter. pravastatin (PRAVACHOL) 20 mg tablet Take 1 tablet by mouth daily at bedtime. irbesartan (AVAPRO) 300 mg tablet Take 1 tablet by mouth once daily. nystatin (MYCOSTATIN) powder Apply 1 application to affected area three times daily. As directed for treatment of yeast infection blood sugar diagnostic (BLOOD GLUCOSE TEST) test strip Test blood sugar(s) once or twice daily. Dx: E11.9. Med: Invokana. One touch meter. diltiazem XR (DILTIA XT) 240 mg 24 hr capsule Take 1 capsule by mouth once daily. esterified estrogens-methylTESTOSTERone (ESTRATEST HS) 0.625- 1.25 mg per tablet Take 1 tablet by mouth once daily. aluminum hydrox-magnesium carb (GAVISCON) 95-358 mg/15 mL suspension Take 15 mL by mouth every 6 hours as needed. icosapent ethyl (VASCEPA) 1 gram cap Take by mouth. No current facility-administered medications for this visit. Last 3 Encounter BP Readings: Date: BP: 06/28/2017 124/82 05/29/2017 124/78 05/08/2017 138/84 Wt: 98.4 kg (217 lb) BMI: 38.44 kg/(m2) LABS Hemoglobin A1C (%) Date Value 08/15/2017 7.0 03/15/2017 8.2 ) CMP: Glucose 167 08/15/2017 BUN 15 08/15/2017 Creatinine 0.61 08/15/2017 Sodium 138 08/15/2017 Potassium 4.3 08/15/2017 Chloride 98 08/15/2017 CO2 21 08/15/2017 Protein, Total 7.5 08/15/2017 Albumin 4.6 08/15/2017 Calcium 10.7 08/15/2017 Alkaline Phosphatase 83 08/15/2017 Bilirubin, Total 0.5 08/15/2017 AST 20 08/15/2017 ALT 20 08/15/2017 Last Lipid Panel Lab Results Component Value Date CHOL 254 03/15/2017 Lab Results Component Value Date HDL 43 03/15/2017 Lab Results Component Value Date LDL 145 03/15/2017 Lab Results Component Value Date TG 501 03/15/2017 Albumin/Creat Ratio (mg/g) Date Value 04/23/2017 Not calculated ASSESSMENT/PLAN: 1. Controlled type 2 diabetes mellitus without complication, without long-term current use of insulin (HCC) - ICD9: 250.00, ICD10: E11.9 Controlled. - Continue current medications - Check A1c, CMP Patient is scheduled to see PCP 09/17. Patient to return to clinic for PharmD f/u if requested by patient or PCP. Patient verbalized understanding of instructions. Dr. Reaves and Vianey Yousif PharmD The patient was seen; chart reviewed and I concur with the above evaluation and plan. PharmD and I discussed with DM SMA group medications for management of DM, HTN and lipids. Also reviewed diet and exercise to help with control of DM. Discussed with each patient individual meds and management of their diabetes issues. Discussed with group stressors. Group provided emotional support. Noted that had been worried about taking the two meds had been discharged on for DM from recent hospitalization. Reassured that fine to stay on both meds to control sugars. Moo Reaves MD Referring Provider: SELF [[id number]] Allergies As of Date: 08/15/2017 Noted Allergy Reaction TORADOL (KETOROLAC TROMETHAMINE) 11/16/2004 7 - Swelling Comments: itching CYMBALTA (DULOXETINE) 06/28/2017 1 - Mental Status Change Comments: confusion; nightmares; may have been due to also UTI, etc but will not try again REDUX 11/05/2016 1 - Mental Status Change Comments: nightmares ROZEREM (RAMELTEON) 06/20/2016 5 - Intolerance Comments: [place] paralyzed and gave her nightmares Date Reviewed: 08/15/2017 Reviewed by: Emilie Allan LPN - Fully Assessed Reason for Visit: SMA-Previsit Assessment [3649] Primary Visit Diagnosis:Controlled type 2 diabetes mellitus without complication, without long-term current use of insulin (HCC) [E11.9] Prescriptions as of 08/15/2017 Sig: OXYCODONE-ACETAMINOPHEN 7.5 M* Take 1 tablet by mouth twice * EMPAGLIFLOZIN 25 MG TABLET Take 1 tablet by mouth once d* ONDANSETRON 4 MG DISINTEGRATI* Take 1 tablet by mouth every * RIVAROXABAN 20 MG TABLET Take 1 tablet by mouth daily * SITAGLIPTIN 100 MG TABLET Take 1 tablet by mouth once d* CHOLECALCIFEROL (VITAMIN D3) * Take 1 capsule by mouth twice* BUMETANIDE 0.5 MG TABLET Take 1 tablet by mouth once d* CODEINE 10 MG-GUAIFENESIN 100* Take 5 mL by mouth once daily* ALPRAZOLAM 0.5 MG TABLET TAKE 1 TABLET BY MOUTH TWICE * ZOLPIDEM ER 12.5 MG TABLET,EX* Take 1 tablet by mouth daily * CYANOCOBALAMIN (VIT B-12) 1,0* Inject 1 mL intramuscularly o* FLUTICASONE 50 MCG/ACTUATION * Use 2 Sprays in each nostril * BENZONATATE 100 MG CAPSULE Take 1 capsule by mouth three* LANCETS Test blood sugar(s) once or t* PRAVASTATIN 20 MG TABLET Take 1 tablet by mouth daily * IRBESARTAN 300 MG TABLET Take 1 tablet by mouth once d* NYSTATIN 100,000 UNIT/GRAM TO* Apply 1 application to affect* BLOOD SUGAR DIAGNOSTIC STRIPS Test blood sugar(s) once or t* DILTIAZEM XR 240 MG CAP Take 1 capsule by mouth once * ESTERIFIED ESTROGENS-METHYLTE* Take 1 tablet by mouth once d* ALUMINUM HYDROX-MAGNESIUM CAR* Take 15 mL by mouth every 6 h* ICOSAPENT ETHYL 1 GRAM CAPSULE Take by mouth. Problem List As Of Date 08/15/2017 Noted Resolved Primary osteoarthritis involving multiple joint*INVALID FOR* More... Obesity [E66.9] INVALID FOR* MYALGIA AND MYOSITIS NOS [[id number]] INVALID FOR* Chronic Pancreatitis [K86.1] INVALID FOR* Osteopenia [M85.80] INVALID FOR* More... Essential hypertension [I10] INVALID FOR* Hypertriglyceridemia [E78.1] INVALID FOR* Diabetes mellitus type II INVALID FOR*10/05/2013 Depression [F32.9] INVALID FOR* Atrial fibrillation [I48.91] INVALID FOR* Vitamin D deficiency [E55.9] INVALID FOR* Anxiety [F41.9] INVALID FOR* Controlled substance agreement signed [Z79.899] INVALID FOR* Diabetes (HCC) [E11.9] INVALID FOR*08/14/2015 Stress and adjustment reaction [F43.29] INVALID FOR* Chronic abdominal pain [R10.9, G89.29] INVALID FOR* ADD (attention deficit disorder) without hypera*INVALID FOR* Hyperparathyroidism , secondary, non-renal (HCC*INVALID FOR* Hyperparathyroidism, primary (HCC) [E21.0] INVALID FOR* Follow-up and Disposition History Recorded Encounter Status:Closed by MOO REAVES MD on 08/28/17 CHIROPRACTIC REPORT Observed: 08/14/2017 Status: F Source: [place] 8:37 AM [facility] [address] [place] [address] OFFICE VISIT Date of Service: 08/13/17 MR#: [id number] Acct: [id number] Name: KATHERIN MARTIN Rep #: [id number] : 1940 Provider: Ailin Spencer D.C. Age/Sex: 76/F [place] [facility] [place]: Signed Intake Vital Signs08/13/17 Height 5 ft 3 in 08/13/17 Weight: 230 lb 08/13/17 Body Mass Index (BMI) 40.7 Intake Visit Reasons: back pain Is patient in pain?: Yes Allergies duloxetine [From Cymbalta] Allergy (Verified 08/13/17 12:45) Other ramelteon [From Rozerem] Allergy (Verified 08/13/17 12:45) Other bupropion Adverse Reaction (Verified 08/13/17 12:45) Other bupropion HCl [From Wellbutrin] Adverse Reaction (Verified 08/13/17 12:45) Other dexfenfluramine HCl [From Redux] Adverse Reaction (Verified 08/13/17 12:45) Unknown hydrochlorothiazide Adverse Reaction (Verified 08/13/17 12:45) Other ketorolac tromethamine [From Toradol] Adverse Reaction (Verified 08/13/17 12:45) Itching oxaprozin [From Daypro] Adverse Reaction (Verified 08/13/17 12:45) Other Medications ALPRAZolam [Xanax] 0.5 mg PO QHS 12/11/13 [History Confirmed 08/07/17] Diltiazem CD [Cardizem CD] 240 mg PO DAILY 12/11/13 [History Confirmed 08/07/17] Sitagliptin Phosphate [Januvia] 100 mg PO DAILY 05/30/17 [History Confirmed 08/07/17] Empagliflozin [Jardiance] 25 mg PO DAILY #30 tab 06/12/17 [Rx Confirmed 08/07/17] Ondansetron [Zofran Odt] 4 mg PO Q6H PRN PRN #30 tab 06/12/17 [Rx Confirmed 08/07/17] Rivaroxaban [Xarelto] 20 mg PO DAILY@0600 #30 tab 06/12/17 [Rx Confirmed 08/07/17] Oxycodone [Oxyir] 5 - 10 mg PO Q4H PRN PRN 3 Days #12 tab 06/22/17 [Rx Confirmed 08/07/17] Cyanocobalamin [Vitamin B12] 100 mcg IM Q30D 07/31/17 [History Confirmed 08/07/17] Ergocalciferol [Vitamin D] 50,000 unit PO Q7D 07/31/17 [History Confirmed 08/07/17] Fluticasone Propionate [Flonase Allergy Relief] 1 spray INHALATION DAILY 07/31/17 [History Confirmed 08/07/17] Zolpidem Tartrate [Ambien Cr] 12.5 mg PO QHS PRN PRN 07/31/17 [History Confirmed 08/07/17] PFS Medical History Morbid obesity due to excess calories (Chronic) Paroxysmal atrial fibrillation (Chronic) Hyperlipidemia (Chronic) Hypertension (Chronic) DVT (deep venous thrombosis) (Chronic) Osteoarthritis (Chronic) Type 2 diabetes mellitus without complications (Chronic) Small bowel obstruction (Resolved) whipple surgery (Inactive) Surgical History History of bladder suspension procedure (Chronic) History of bowel resection (Chronic) History of medial meniscus repair of right knee (Chronic) History of total abdominal hysterectomy (Chronic) Hx of cholecystectomy (Chronic) History of bilateral carpal tunnel release (Inactive) History of bladder suspension procedure (Inactive) History of hysterectomy (Inactive) S/P cholecystectomy (Inactive) sigmoid colon removed (Inactive) vaginal wall repaired (Inactive) Family History Mother Myocardial infarction Social History Smoking Status: Never smoker HPI back pain : Chief Complaint: low back pain Visit Number: 1 Referral source: Details: KATHERIN MARTIN is a 76 year old F who presents with low back pain. The patient did have a R knee replacement surgery in April, causing her increased low back pain. Katherin also states that she has fallen three times since her surgery, causing her to fall on the R side. Katherin describes her pain as a tight and sharp spasm that bands across the low back. She is unable to stand for a prolonged amount of time, sweeping, standing, and twisting all cause increased left sided pain. The pain wraps around the top of her left pelvis at times. Katherin denies any numbness, tingling, or radiculopathy. Onset: 05/20/17 Location: low back Duration: constant Aggravating or associated factors: sweeping, bending, lifting, twisting Relieving factors: none Pain Quality: aching, dull, cramping, sharp Exam Musc General: Yes joint tenderness (T10, T11, L3, L4, L5, L>R SI); no normal posture (R antalgia) or normal gait (favoring right leg) Thoracic/Lumbar Spine: thor and lumb spine abnorm to inspection (R antalgia), Lasegue's sign positive bilaterally, pain with thoraco-lumbar ROM with lateral flexion to the left, with rotation to the right, with rotation to the left and other (extension), paraspinal tenderness on the left greater than right (L3-L5, L SI), thoraco-lumbar ROM limited with lateral flexion to the left, with forward flexion, with rotation to the right and with rotation to the left, thoraco-lumbar spasm on the left greater than right (lumbar) Sacroiliac joints: bilaterally Neuro General: alert, awake, oriented x3, normal light touch, pain and propioception (slight deviation due to knee surgery) Gait: antalgic Motor: strength abnormal (Grade IV/V Left lower extremity, V/V RLE) Sensory Exam: no sensory deficits noted Ortho Test CERVICAL THORACIC Kemps: Positive, Right, Le LUMBAR Kemps: Positive, Right, Le Valsalvas: Negative Iliac Compression: Positive, Right, Le Assessment AND Plan Problems 1. DDD (degenerative disc disease), lumbar M51.36 2. Segmental and somatic dysfunction of thoracic region M99.02 3. Segmental and somatic dysfunction of sacral region M99.04 4. Segmental and somatic dysfunction of pelvic region M99.05 Plan Recommend acute treatment plan and obtain lumbar imaging. Orders Orders: Plan Detail Goals Decrease LBP Decrease inflammation Barriers DDD Obesity Previous knee surgery Follow Up 2-3x/wk/3wks Coding Level of Care Code Off vis,new,level 3 Diagnoses DDD (degenerative disc disease), lumbar M51.36 Segmental and somatic dysfunction of thoracic region M99.02 Segmental and somatic dysfunction of sacral region M99.04 Segmental and somatic dysfunction of pelvic region M99.05 08/14/17 0837 <Electronically signed by Ailin Spencer D.C.> Date Ailin Spencer D.C. Cosigner Signature: Date (if applicable) CC: VENOUS DUPLEX LOWER Observed: 08/13/2017 Status: F Source: [place] EXTREMITY 2:08 PM [facility] [place] REPOSITORY [facility] Cardiovascular Services [address] [place] [id number] Venous Duplex US, Unilateral 08/13/17 1059 MR#: [id number] Acct: [id number] Name: KATHERIN MARTIN Rep #: [id number] : 1940 76 From: Rod Hidalgo MD Attending Dr: Mendy Walker DO Status: REG CLI Ordering Dr: Mendy Walker DO Date: 08/13/17 Location: [facility] Sex: F C Admitted: Reason For Study: F/U DVT RLE RIGHT LEFT CFV is compressible, spontaneous, phasic, CFV is compressible, spontaneous, phasic, competent and demonstrates normal competent, and demonstrates normal augmentation. augmentation. FV is compressible, spontaneous, phasic, competent and demonstrates normal augmentation. POP V is compressible, spontaneous, phasic, competent and demonstrates normal augmentation. T/P Trunk is compressible. PTV is compressible. RT PerV is compressible. GSV not assessed. Procedure Exam performed in department. A preliminary report was called and/or faxed to Dr. Walker. Interpretation Summary Deep veins of the right lower extremity are patent and compressible segmentally. There is no evidence of right lower extremity deep vein thrombosis. Valvular competence appears intact within the proximal deep venous system on the right . The right great saphenous vein was not assessed. Ordering Physician: Mendy Walker Referring Physician: Mendy Walker Chi Performed By: Reina Ferrera RVT 08/13/17 1408 Date Rod Hidalgo MD CC: Mendy Walker DO; Moo Reaves MD Date Dictated: 08/13/17 1059 Date Transcribed: 08/13/171407 [employer] Specialist: Signed CARDIOLOGY VISIT Observed: 08/07/2017 Status: F Source: [place] REPORT 11:31 AM [facility] [place] REPOSIT[facility] [address] [place] [address] OFFICE VISIT Date of Service: 08/07/17 MR#: [id number] Acct: [id number] Name: KATHERIN MARTIN Rep #: [id number] : 1940 Provider: Casa Puentes MD Age/Sex: 76/F Location: [facility] [place] Status: Signed HPI HPI Chief Complaint: Initial evaluation. Details: KATHERIN MARTIN, is a 76 F who presents to the office today for an initial evaluation. She is a pleasant lady with a history of possible previous paroxysmal atrial fibrillation hypertension hyperlipidemia diabetes mellitus obesity as well as recent knee surgery for which she sustained an deep vein thrombosis. She was put on Xarelto for the above. She says that she has been having these palpitations frequently and wants them to be evaluated. She says that there have been times when she has been out of rhythm for a few days. She did have an electrocardiogram performed in July 31 with demonstrated normal sinus rhythm with nonspecific ST-T wave changes. She has had no neck arm or jaw discomfort suggest angina no dizziness or diaphoresis no near syncope or syncope. She has been compliant with her anticoagulation as well as her antihypertensive medication and rate controlling medication. Her physical exam here today demonstrates clear lung golden regular rate and rhythm and no pedal edema. Intake Vital Signs08/07/17 Height 5 ft 3 in Intake Visit Reasons: ER on 07-31 for afib Allergies duloxetine [From Cymbalta] Allergy (Verified 08/07/17 10:52) Other ramelteon [From Rozerem] Allergy (Verified 08/07/17 10:52) Other bupropion Adverse Reaction (Verified 08/07/17 10:52) Other bupropion HCl [From Wellbutrin] Adverse Reaction (Verified 08/07/17 10:52) Other dexfenfluramine HCl [From Redux] Adverse Reaction (Verified 08/07/17 10:52) Unknown hydrochlorothiazide Adverse Reaction (Verified 08/07/17 10:52) Other ketorolac tromethamine [From Toradol] Adverse Reaction (Verified 08/07/17 10:52) Itching oxaprozin [From Daypro] Adverse Reaction (Verified 08/07/17 10:52) Other Medications ALPRAZolam [Xanax] 0.5 mg PO QHS 12/11/13 [History Confirmed 08/07/17] Diltiazem CD [Cardizem CD] 240 mg PO DAILY 12/11/13 [History Confirmed 08/07/17] Sitagliptin Phosphate [Januvia] 100 mg PO DAILY 05/30/17 [History Confirmed 08/07/17] Empagliflozin [Jardiance] 25 mg PO DAILY #30 tab 06/12/17 [Rx Confirmed 08/07/17] Ondansetron [Zofran Odt] 4 mg PO Q6H PRN PRN #30 tab 06/12/17 [Rx Confirmed 08/07/17] Rivaroxaban [Xarelto] 20 mg PO DAILY@0600 #30 tab 06/12/17 [Rx Confirmed 08/07/17] Oxycodone [Oxyir] 5 - 10 mg PO Q4H PRN PRN 3 Days #12 tab 06/22/17 [Rx Confirmed 08/07/17] Cyanocobalamin [Vitamin B12] 100 mcg IM Q30D 07/31/17 [History Confirmed 08/07/17] Ergocalciferol [Vitamin D] 50,000 unit PO Q7D 07/31/17 [History Confirmed 08/07/17] Fluticasone Propionate [Flonase Allergy Relief] 1 spray INHALATION DAILY 07/31/17 [History Confirmed 08/07/17] Zolpidem Tartrate [Ambien Cr] 12.5 mg PO QHS PRN PRN 07/31/17 [History Confirmed 08/07/17] PFSH Medical History Morbid obesity due to excess calories (Chronic) Paroxysmal atrial fibrillation (Chronic) Hyperlipidemia (Chronic) Hypertension (Chronic) DVT (deep venous thrombosis) (Chronic) Osteoarthritis (Chronic) Type 2 diabetes mellitus without complications (Chronic) Small bowel obstruction (Resolved) whipple surgery (Inactive) Surgical History History of bladder suspension procedure (Chronic) History of bowel resection (Chronic) History of medial meniscus repair of right knee (Chronic) History of total abdominal hysterectomy (Chronic) Hx of cholecystectomy (Chronic) History of bilateral carpal tunnel release (Inactive) History of bladder suspension procedure (Inactive) History of hysterectomy (Inactive) S/P cholecystectomy (Inactive) sigmoid colon removed (Inactive) vaginal wall repaired (Inactive) Family History Mother Myocardial infarction Social History Smoking Status: Never smoker ROS Const Const: Positive for fatigue, weakness, frequent falls (admits to increase falling r/t dizziness and weakness) and other (C/O increase depression); negative for difficulty sleeping, headache(s) or excessive sweating Eyes Eyes: Negative for loss of peripheral vision, transient loss of vision, blurry vision or double vision ENT ENT: Positive for dizziness; negative for headache(s), Nosebleed/epistaxis or balance problems Cardio Chest Pain: No Palpitations: Yes (increase palpitations over the past 6 weeks) Edema: None Muscle aches with walking: None Resp Respiratory: Positive for SOB with activity; negative for SOB at rest, SOB orthopnea\SOB lying down or paroxysmal nocturnal dyspnea GI GI: Negative nausea or heartburn : Negative for hematuria Musc Musc: Positive for joint pain (s/p right knee surgery w/ dvt); negative for muscle aches/ myalgia, muscle weakness or balance problems Skin Skin: Negative non-healing lesions, unusual bruising or rash Neuro Neuro: Positive for weakness, frequent falls (admits to increase falling r/t dizziness and weakness), dizziness and lightheadedness; negative for blurry vision, headache(s), orthostatic symptoms or double vision Yousuf Hematologic/Lymphatic: Negative for easy bruising Endo Endo: Positive for fatigue; negative for excessive sweating or increased thirst/drinking Psych Psych: Negative for anxiety or depression Allergy Allergy/Immunology: Negative for hives, Negative for rash Cardiology Exam Const Appearance: cooperative, healthy appearing, well developed, well groomed and no acute distress Nutritional Appearance: well nourished and average body habitus Orientation: alert, awake and oriented x3 Head Head: normal to inspection, normocephalic and atraumatic Ears: hearing grossly normal bilaterally and external ears normal Nose: external nose normal, nasal mucous membranes and turbinates normal, nares normal, septum normal, no nasal discharge Face and Sinus: face symmetric Mouth: oral mucosae normal, tongue normal, oropharynx normal and moist mucous membranes Teeth and gingiva: dentition normal Throat: posterior oropharynx normal, tonsils normal and uvula midline Eyes General: appearance normal, both eyes and all related structures Eyelids: eyelids normal Conjunctivae: conjunctivae normal Pupils: PERRL, normal by confrontation and accommodation normal EOM: EOM intact bilaterally Neck Neck: normal visual inspection, trachea midline and no JVD JVD: +5 Carotids: normal carotid upstroke and bounding pulses Chest Chest inspection: normal inspection of the chest, symmetric chest movement and normal respiratory effort Auscultation: Bilateral: Clear to Auscultation Cardio Palpation: normal PMI Rhythm: irregular rhythm Heart sounds: S1 normal and S2 normal GI GI: normal to inspection, soft, no hepatosplenomegaly and bowel sounds present Neuro General: alert, awake, oriented x3, no focal sensory deficit, gait normal and moves all extremities Skin Skin: no rashes or lesions noted Extremities Pulses: Normal: Right Femoral Pulse, Left Femoral Pulse, Right Dorsalis Pedis Pulse, Left Dorsalis Pedis Pulse, Right Posterior Tibial Pulse, Left Posterior Tibial Pulse, Right Radial Pulse, Left Radial Pulse Lower Extremity Edema: None: Bilateral Musculoskel Musculoskeletal: No joint tenderness Psych Psychological: normal affect Assessment AND Plan 1. Paroxysmal atrial fibrillation I48.0 Plan She has been having palpitations which are likely secondary to paroxysms of atrial fibrillation. She does have a risk factors with regard to her age hypertension diabetes mellitus as well as recent surgery. My recommendation therefore would be to continue her on anticoagulation as well as the rate controlling medication with the Cardizem. An echocardiogram should be performed to assess her left jugular function and assess atrial sizes as well as valvular function. A pharmacologic myocardial perfusion stress test also needs to be performed to exclude ischemia. In addition I would recommend that we obtain a 48-hour Holter monitor to really characterize whether she is having these paroxysms of atrial fibrillation. Orders Orders: 2. Essential hypertension I10 Plan Her blood pressure appears to be under excellent control on the diltiazem and I would not recommend that we make any changes. 3. Morbid obesity due to excess calories E66.01 Plan She should continue with aggressive risk factor modification. Thank you for allowing me to participate in the care of your patient. Please don't hesitate to call if any issues arise Plan Detail Follow Up 6 Months (mmm) Coding Level of Care Code Off vis,new,level 4 Diagnoses Paroxysmal atrial fibrillation I48.0 Essential hypertension I10 Hypertension type: essential hypertension Morbid obesity due to excess calories E66.01 Coding Level of Care Code Off vis,new,level 4 Diagnoses Paroxysmal atrial fibrillation I48.0 Essential hypertension I10 Hypertension type: essential hypertension Morbid obesity due to excess calories E66.01 08/07/17 1131 <Electronically signed by Casa Puentes MD> Date Casa Puentes MD Cosigner Signature: Date (if applicable) CC: Moo Reaves MD 12 LEAD ELECTROCARDIOGRAM Observed: 08/05/2017 Status: F Source: JAMIE 8:58 AM [facility] [place] REPOSIT[facility] Cardiovascular Services [address] [place] [address] 12 Lead EKG 07/31/17 1359 MR#: [id number] Acct: [id number] Name: KATHERIN MARTIN Rep #: [id number] : 1940 76 From: Gilberto So MD Attending Dr: Status: DEP ER Ordering Dr: Cade Jacobsen MD Date: 07/31/17 Location: ED Sex: F C Admitted: Test Reason : PALPS Blood Pressure : / mmHG Vent. Rate : 079 BPM Atrial Rate : 079 BPM P-R Int : 170 ms QRS Dur : 084 ms QT Int : 336 ms P-R-T Axes : 055 -13 072 degrees QTc Int : 385 ms Normal sinus rhythm Low voltage QRS (LIMB LEADS) Nonspecific T wave abnormality Abnormal ECG Confirmed by DWIGHT KEE, GILBERTO ([id number]), book editor JIMMY HART ([id number]) on 08/02/2017 2:43:07 PM Referred By: ABDIAS Confirmed By:GILBERTO SO MD 08/02/17 1443 Date Gilberto So MD CC: Cade Jacobsen MD; Moo Reaves MD Signed INITAL EVALUATION (1) Observed: 08/05/2017 Status: F Source: JAMIE - PT 8:52 AM [facility] [place] REPOSITORY [facility] [address] [place] [address] Fax REHABILITATION SERVICES INITIAL EVALUATION MR#: [id number] Acct: [id number] Name: KATHERIN MARTIN Rep #: [id number] : 1940 76 From: José Manuel Curtis DPT Referring DrBreann: Mendy Walker DO Status: REG RCR Insurance: [employer] [facility] SELF PAY INSURANCE Patient's Visit Information KATHERIN MARTIN is a 76 year old F referred to Physical Therapy by Mendy Walker DO with a diagnosis of R medial meniscal repair. Date of Evaluation: 07/16/17 Physical Therapist: José Manuel Curtis - Visit Plan Frequency: 2x /Week Duration: 4-6 Weeks Plan: See's PT next session. Cont w/ POC anf try ex next session if pt is able to. - Subjective Subjective: Pt. is here today for her initial evaluation with diagnosis of R knee medial meniscal repair on 05/15/17. Pt. reports having increased pain for several months, but is now better until she fell a few weeks ago. Pt. did have a set back as well having a bowel obstruction and having to be on TCU at [facility] for several weeks. Pt. fell recently onto knee and her knee has been bothering her since. Pt. is also having some L sided low back pain. Pt. denies N/T. Pt. reports pain with walking, but not consistently. Pt. reports no sudden weakness, but does feel generally weak. Pt. has increased symptoms with stair negotiation and getting up from floor. Pt. is hopeful to reduce symptoms to get back to all recreational activities without limtiations. - Pain R knee Pain Intensity (Out of 10): 2 Pain Intensity Range: 0, 4 L side of lumbar spine Pain Intensity (Out of 10): 4 Pain Intensity Range: 1, 6 - Objective POSTURE: Pt. has slight increase in L lateral wt. shift, but trunk lean to R side. Pt. has close TKE in stance. PALAPTION: Pt. has slight pain at medial joint line. Marked edema throughout knee, non pitting. Pt. has no pain at quads or patellar tendon. NEUROLOGICAL: PT. has normal sensation throughout bilateral LEs. Pt. has 2+ DTR bilateral achilles and patellar tendons. Pt. is able to rise on heels and toes without issues. ROM: R knee 0-3-120deg. INcreased pain at end range ext and flexion. Normal hip ROM. MMT: R ankle- 5/5 throughout; knee- ext 4/5, flexion 4/5; hip- flexion 4/5, abd 4/5, ext 4+/5. Core strength- poor. GAIT: Pt. ambulates with trunk lean to R side, decrease R stance phase, lacks TKE during stance on RLE. Pt. reports 1/10 pain in R knee with ambulation. STAIRS: Pt. negotiates with step to pattern with use of BHR. - Goals Goal 1:: Pt. to be I with HEP. Goal Time Frame: 4-6 Weeks Goal 2:: Pt. to have increased R knee ROM to 0-0-125deg without increase in symptoms. Goal Time Frame: 4-6 Weeks Goal 3:: Pt. to have increased RLE strength by 1/2 grade of all effected musculature to increase ability to complete all functional mobility. Goal Time Frame: 4-6 Weeks Goal 4:: Pt. to ambulate unlimited distances with 0-1/10 pain in R knee allowing for increased quality of life. Goal Time Frame: 4-6 Weeks Goal 5:: Pt. to negotiates 1 flight of steps with reciprocal pattern with 1 HR with 0-1/10 pain in R knee. Goal Time Frame: 4-6 Weeks Goal 6:: Pt. to sleep throughout the night with 0-1/10 pain in R knee. Goal Time Frame: 2-4 Weeks - Rehabilitation Potential Physical Therapy Diagnosis: Pt. has signs and symptoms consistent with R medial meniscal repair with subsequent hypomobility, RLE weakness, increased pain and decreased functional mobility. Pt. would benefit from PT to address above limitations progressing back to all functional mobility without limitations. Rehabilitation Potential: Good - Anticipated Interventions Patient/Client Instruction: Educate patient on: Condition, Plan of Care, Risk Factors, Benefits of Fitness Program For the Purpose of:: To foster healthy habits, To improve decision making, To facilitate caregiver knowledge, To improve self management, To prevent re-injury, To improve ability to perform tasks related to life management, To improve tolerance to ADL's Therapeutic Exercise to Include: Strength training, Power training, Endurance training, Body mechanics, Postural training, Flexibilty training, Gait and locomotor training, Passive ROM, Active ROM, Dynamic Lumbar Stabilization For the Purpose of:: To decrease pain, To increase ROM, To improve nutrient delivery to tissue, To increase oxygenation perfusion, To improve muscle performance and motor function, To improve ability to perform ADL's, To increase tolerance to activity/condition/position, To improve gait and locomotor functions, To improve health of tissue, To decrease soft tissue restriction, To increase flexibility/ROM, To improve endurance, To improve balance Manual Therapy Techniques to Include: Mobilization, Passive ROM, Soft tissue mobilization For the Purpose of:: To decrease pain, To decrease swelling/inflammation, To increase ROM, To improve nutrient delivery to tissue IF ES: Yes Cryotherapy (ice pack, ice massage): Yes Thermo therapy (hot pack): Yes For the Purpose of:: To decrease pain, To decrease swelling/inflammation, To increase ROM Thank you for the opportunity to evaluate your patient. For Medicare and Medicare HMO plans, please review the plan of care and approve it. It will need to be FAXED BACK to us at [phone] for Medicare purposes. Please let me know if there are questions or concerns regarding this plan of care. Physician Signature: Date: <Electronically signed by José Manuel Curtis DPT> 08/05/17 0852 CC: Mendy Walker DO; Moo Reaves MD CLS Signed For Medicare only, by signing this I certify the plan of care. Physicians Signature Date EMERGENCY DEPARTMENT Observed: 07/31/2017 Status: F Source: [place] SUMMARY 4:54 PM [facility] REPOSITORY [facility] Medical Records Department [address] [place] [address] Emergency Department Summary 07/31/17 1552 MR#: [id number] Acct: [id number] Name: KATHERIN MARTIN Rep #: [id number] : 1940 76 From: Cade Jacobsen MD PCP: Moo Reaves MD Status: DEP ER - ER Visit Summary Date of Service: 07/31/17 Chief Complaint: Palpitations with a prior history of A. fib. History of Present Illness: The patient is a 76 F history of prior intermittent A. fib, right leg DVT and insulin-dependent diabetes. Patient states I am back in A. fib. States symptoms been going on for 1 week. With palpitations. She denies chest pain. States she has had some intermittent shortness of breath. No hemoptysis. No pleuritic chest pain. Physical Examination: Very well-appearing older female vital signs stable afebrile. Pulse ox 95% room air no signs of hypoxia. HEENT exam unremarkable neck nontender no lymphadenopathy. Lungs clear to auscultation bilaterally. Heart regular rate and rhythm no murmur rate about 74. Abdomen soft and nontender. Normal bowel sounds no peritoneal signs. Moving all 4 extremities. Neurovascular intact. Calves without tenderness or edema. Neurologically awake alert with no focal motor deficits. Test Results: Patient is a normal exam with palpitations per history. Test results chest x-ray normal cardiac silhouette and mediastinum read by myself. And the radiologist. EKG sinus rhythm rate 79 with no signs of ND or ischemia. No dysrhythmia. CBC normal. Chemistries normal glucose 179 normal creatinine and gap. Troponin normal. Emergency Department Course and Treatment: Repeat exam patient is doing well at 1550 10 be discharged home. She has had no signs of A. fib the entire time in the ER. Treatment Plan: Discharged home from the Dr. Punetes of cardiology. Disposition: Discharge Impression: Acute palpitations of uncertain etiology History of prior atrial fibrillation History of hypertension and insulin-dependent diabetes History of DVT on Xarelto This note was generated with [employer] dictation software. It may contain incorrect words, spelling, and punctuation that were not noted in review of the chart prior to signing ED Disposition - Plan for ED Patient: Chief Complaint: Palpitations Referrals: Moo Reaves MD [Primary Care Provider] - What to do if you have Problems For any increased pain, shortness of breath, bleeding, nausea or vomiting, chest pain, or any unexpected problems, contact your Primary Care Provider. Call [facility] ([phone]) or report to the closest Emergency Room. Call 911 if necessary. 07/31/17 5878 <Electronically signed by Cade Jacobsen MD> Date Cade Jacobsen MD Cosigner Signature (If Indicated): Date CC: Moo Reaves MD DISCHARGE INSTRUCTION Observed: 07/31/2017 Status: F Source: [place] 4:54 PM [facility] REPOSITORY [facility] Medical Records Department [address] [place] [address] Discharge Instruction 07/31/17 1555 MR#: [id number] Acct: [id number] Name: KATHERIN MARTIN Rep #: [id number] : 1940 76 From: Cade Jacobsen MD PCP: Moo Reaves MD Status: DEP ER ED Disposition - Plan for ED Patient: Disposition: Home or Assisted Living Chief Complaint: Palpitations Instructions: ED Palpitations Referrals: Casa Puentes MD [STAFF PHYSICIAN] - As soon as possible Additional Instructions: Call and follow-up with either Dr. Puentes, Dr. Gunderson or Dr. So. Your labs, chest x-ray and EKG in the ER today were all normal. What to do if you have Problems For any increased pain, shortness of breath, bleeding, nausea or vomiting, chest pain, or any unexpected problems, contact your Primary Care Provider. Call [facility] ([phone]) or report to the closest Emergency Room. Call 911 if necessary. 07/31/17 8787 <Electronically signed by Cade Jacobsen MD> Date Cade Jacobsen MD Cosigner Signature (If Indicated): Date CC: Moo Reaves MD CHEST 1 VIEW Observed: 07/31/2017 Status: F Source: JAMIE (PORTABLE) 2:11 PM [facility] REPOSITORY [facility] Imaging Services [address] [place] [address] Chest 1 View (Portable) MR#: [id number] Acct: [id number] Name: KATHERIN MARTIN Rep #: [id number] : 1940 F 76 From: Chelsea Bhatt MD PCP: Moo Reaves MD Status: REG ER Study: Chest 1 View (Portable) Date of Exam: 07/31/17 Exam# [id number] Ordering Dr: Cade Jacobsen MD STUDY: X-RAY CHEST REASON FOR EXAM: Female, 76 years old. PALPITATIONS, PT STATES SHE IS BACK IN AFIB, COMPLAINS OF PALPITATIONS AND SOB FOR ONE WEEK. TECHNIQUE: Single AP portable view of the chest. COMPARISON: None. FINDINGS: Subsegmental atelectasis are noted in the left lung base. There is no demonstrated pleural abnormality. Normal size heart. Normal mediastinum and deondre. Normal visualized pulmonary arteries. Normal visualized aortic arch and descending thoracic aorta. Normal visualized thoracic spine. Normal visualized ribs, clavicles, and shoulders. There is no demonstrated abnormality of the visualized soft tissue structures of the upper abdomen. RAD/Chest 1 View (Portable) IMPRESSION: No demonstrated acute cardiopulmonary process. Electronically Signed: Chelsea Bhatt MD at 14:41 EDT Tel , Service support , CC: Cade Jacobsen MD; Moo Reaves MD Automation Controls Specialist: Signed CBC W/DIFF, AUTOMATED Collected: 07/31/2017 Status: F Source: [place] 2:10 PM [facility] REPOSITORY TYPE CODE TESTS RESULT OUT OF RANGE REFERENCE UNITS LAB L100.1000 4.4-11.0 K/mm3 Normal WBC 8.7 LAB L100.1200 4.2-5.4 M/mm3 Normal RBC 5.18 LAB L100.1300 12.0-15.0 g/dl High HGB 15.5 LAB L100.1400 37-47 % High HCT 47.4 LAB L100.1500 81-99 fL Normal MCV 91.5 LAB L100.1600 27.0-32.0 pg Normal MCH 29.9 LAB L100.1700 32-36 g/gl Normal MCHC 32.7 LAB L100.1810 11.6-14.6 % Normal RDW CV 14.2 LAB L100.1820 35.1-43.9 fl High RDW SD 47.7 LAB L100.1900 150-450 K/mm3 Normal PLT 175 LAB L100.2000 6.2-12.0 fl Normal MPV 10.1 LAB L100.2100 47-70 % Normal NEUT% 64.8 LAB L100.2200 19-41 % Normal LY% 26.6 LAB L100.2300 0-10 % Normal MONO% 6.8 LAB L100.2400 0-5 % Normal EO% 0.6 LAB L100.2500 0-1 % Normal BASO% 0.3 LAB L100.2550 0.0-0.9 % Normal IM GRAN % 0.900 Result Comment: IG% - Immature Granulocytes (promyelocytes, myelocytes and metamyelocytes) > 1% indicates that a LEFT SHIFT is Present. LAB L100.2620 2.0-7.7 X10 3/uL Normal Absolute Neut 5.6 LAB L100.2720 0.83-4.51 X10 3/ul Normal Absolute Lymph 2.31 Performed By: #### L100.0100, L500.2500, L501.4010 #### [facility] [address] [place], [address] BASIC METABOLIC Collected: 07/31/2017 Status: F Source: [place] PROFILE ([facility]) 2:10 PM [facility] REPOSITORY TYPE CODE TESTS RESULT OUT OF RANGE REFERENCE UNITS LAB L501.0100 74-106 mg/dL High GLU 179 Result Comment: Fasting Glucose result greater than or equal to 126 mg/dL suggests DIABETES MELLITUS per A.D.A. criteria. Please note revised GLUCOSE reference range effective 2017. LAB L501.1000 7-18 mg/dL Normal BUN 13 LAB L501.1100 0.55-1.02 mg/dL Normal CREAT,SERUM 0.92 Result Comment: The validity of the calculated GFR AND GFRAA in patients over 70 years has not been determined. Clinical correlation is essential. LAB L501.1110 >60 mL/min Normal EST GFR 63 Result Comment: Non- GFR Calc LAB L501.1115 >60 mL/min Normal EST GFR - AA 76 Result Comment: GFR Calc LAB L501.1255 ml/min Normal Estimated CRCL 43.71 LAB L501.1300 10-20 RATIO Normal BUN/CRE 14.1 LAB L501.2200 8.5-10 mg/dL High .1 CA 10.3 LAB L501.5300 136-14 mmol/L Normal 5 NA 137 LAB L501.5600 3.5-5. mmol/L Normal 1 K 3.9 LAB L501.5900 98-107 mmol/L Normal CL 102 LAB L501.6100 21.0-3 mmol/L Normal 2.0 CO2 25.0 LAB L501.6200 5-15 Normal GAP 10 Performed By: #### L100.0100, L500.2500, L501.4010 #### [facility] [address] [facility]. [place], [place], [address] TROPONIN-I Collected: 07/31/2017 Status: F Source: [place] 2:10 PM [facility] REPOSITORY TYPE CODE TESTS RESULT OUT OF RANGE REFERENCE UNITS LAB L501.4010 <0.045 ng/mL Normal < 0.015 TROPONIN-I Result Comment: TROPONIN-I EXPECTED VALUES <0.045 Negative 0.045 - 0.590 Consistent with Cardiac Damage > OR = 0.600 Critical Value Not every elevated troponin is indicative of ND. These values should be used with clinical judgement in examining the patient's clinical picture for diagnosis. To establish a diagnosis of ND versus myocardial injury, there must be a demonstrated rise and/or fall in the troponin values, in addition to ischemic symptoms, EKG changes, new regional wall motion abnormality, and/or angiographical evidence. PLEASE NOTE: REFERENCE RANGES EDITED 17 Performed By: #### L100.0100, L500.2500, L501.4010 #### [facility] [address] [facility] [place], [address] PROGRESS Observed: 07/26/2017 Status: COMPLETED Source: [place] 2:03 PM [facility] REPOSITORY HNO ID: [id number] Author: Mendy Peres Service: (none) Author Type: Registered Nurse Type: Progress Notes Filed: 07/26/2017 2:03 PM Note Text: Faxed to [facility]. PROGRESS Observed: 07/22/2017 Status: COMPLETED Source: [place] 2:14 PM [facility] REPOSITORY HNO ID: [id number] Author: Moo Reaves Service: (none) Author Type: Physician Type: Progress Notes Filed: 07/26/2017 2:03 PM Note Text: Filed order PROGRESS Observed: 07/22/2017 Status: COMPLETED Source: [place] 10:07 AM [facility] REPOSITORY HNO ID: [id number] Author: Mendy Peres Service: (none) Author Type: Registered Nurse Type: Progress Notes Filed: 07/26/2017 2:03 PM Note Text: PRIMARY CARE COORDINATION FOLLOW-UP NOTE Provider Action/FYI: Please file and fax order for PT back pain to [facility]. Patient identified by name and date of . YES Spoke to patient Summary: Having a rough time and realizes she needs counseling. She will review what counseling venues are covered by her insurance and call me to discuss referral to them. Concerns: She is depressed about 's and more recently the suicide of her former daughter in law, who had 3 children. Katherin feels responsible because she didn't stop her and think I could have. She was to go visit her but weather prohibited her travel and occurred during that time. She states she sleeps 18-20 hrs daily. She has residual knee pain from surgery and now experiencing back pain- likely from not moving around much as well as compensation of knee disuse. Needs referral to PT for assist with back pain management. [employer] plan for next outreach: Will follow up with her when she determines options covered by her insurance for counseling Signature Mendy Peres creative/art director Smokehouse Operator Internal Medicine [place] [facility] July 22, 2017 CNPTOUTREACH Observed: 07/22/2017 Status: COMPLETED Source: [place] 12:00 AM [facility] REPOSITORY Patient Outreach (INTMWS) KATHERIN MARTIN ([id number]) 1940 F Date Time Provider Department 07/22/17 MENDY VELAZQUEZ INTMyronWS During your visit today, we recorded the following information about you: Mendy Chino RN 07/26/2017 2:03 PM Signed PRIMARY CARE COORDINATION FOLLOW-UP NOTE Provider Action/FYI: Please file and fax order for PT back pain to [facility]. Patient identified by name and date of . YES Spoke to patient Summary: Having a rough time and realizes she needs counseling. She will review what counseling venues are covered by her insurance and call me to discuss referral to them. Concerns: She is depressed about 's and more recently the suicide of her former daughter in law, who had 3 children. Katherin feels responsible because she didn't stop her and think I could have. She was to go visit her but weather prohibited her travel and occurred during that time. She states she sleeps 18-20 hrs daily. She has residual knee pain from surgery and now experiencing back pain- likely from not moving around much as well as compensation of knee disuse. Needs referral to PT for assist with back pain management. [employer] plan for next outreach: Will follow up with her when she determines options covered by her insurance for counseling Signature Mendy Peres RN Ambulatory Smokehouse Operator Internal Medicine [facility] July 22, 2017 Moo Reaves MD 07/26/2017 2:03 PM Signed Filed order Mendy Chino RN 07/26/2017 2:03 PM Signed Faxed to [facility]. Allergies As of Date: 07/22/2017 Noted Allergy Reaction TORADOL (KETOROLAC TROMETHAMINE) 11/16/2004 7 - Swelling Comments: itching CYMBALTA (DULOXETINE) 06/28/2017 1 - Mental Status Change Comments: confusion; nightmares; may have been due to also UTI, etc but will not try again REDUX 11/05/2016 1 - Mental Status Change Comments: nightmarrio JAIMES (RAMELTEON) 06/20/2016 5 - Intolerance Comments: [place] paralyzed and gave her nightmares Date Reviewed: 06/28/2017 Reviewed by: Bambi Mojica Stallion Manager - Fully Assessed Reason for Visit: Smokehouse Operator Chronic Care [3612] Primary Visit Diagnosis:Bilateral low back pain with sciatica, sciatica laterality unspecified, unspecified chronicity [M54.40] Order(s):CONSULT TO NON-[facility] FACILITY [1452055] Order #: [id number] Prescriptions as of 07/22/2017 Sig: EMPAGLIFLOZIN 25 MG TABLET Take 1 tablet by mouth once d* ONDANSETRON 4 MG DISINTEGRATI* Take 1 tablet by mouth every * RIVAROXABAN 20 MG TABLET Take 1 tablet by mouth daily * SITAGLIPTIN 100 MG TABLET Take 1 tablet by mouth once d* CHOLECALCIFEROL (VITAMIN D3) * Take 1 capsule by mouth twice* BUMETANIDE 0.5 MG TABLET Take 1 tablet by mouth once d* CODEINE 10 MG-GUAIFENESIN 100* Take 5 mL by mouth once daily* OXYCODONE-ACETAMINOPHEN 7.5 M* Take 1 tablet by mouth twice * ALPRAZOLAM 0.5 MG TABLET TAKE 1 TABLET BY MOUTH TWICE * ZOLPIDEM ER 12.5 MG TABLET,EX* Take 1 tablet by mouth daily * CYANOCOBALAMIN (VIT B-12) 1,0* Inject 1 mL intramuscularly o* FLUTICASONE 50 MCG/ACTUATION * Use 2 Sprays in each nostril * BENZONATATE 100 MG CAPSULE Take 1 capsule by mouth three* LANCETS Test blood sugar(s) once or t* PRAVASTATIN 20 MG TABLET Take 1 tablet by mouth daily * IRBESARTAN 300 MG TABLET Take 1 tablet by mouth once d* NYSTATIN 100,000 UNIT/GRAM TO* Apply 1 application to affect* BLOOD SUGAR DIAGNOSTIC STRIPS Test blood sugar(s) once or t* DILTIAZEM XR 240 MG CAP Take 1 capsule by mouth once * ESTERIFIED ESTROGENS-METHYLTE* Take 1 tablet by mouth once d* ALUMINUM HYDROX-MAGNESIUM CAR* Take 15 mL by mouth every 6 h* ICOSAPENT ETHYL 1 GRAM CAPSULE Take by mouth. Problem List As Of Date 07/22/2017 Noted Resolved Primary osteoarthritis involving multiple joint*INVALID FOR* More... Obesity [E66.9] INVALID FOR* MYALGIA AND MYOSITIS NOS [JGZ8359] INVALID FOR* Chronic Pancreatitis [K86.1] INVALID FOR* Osteopenia [M85.80] INVALID FOR* More... Essential hypertension [I10] INVALID FOR* Hypertriglyceridemia [E78.1] INVALID FOR* Diabetes mellitus type II INVALID FOR*10/05/2013 Depression [F32.9] INVALID FOR* Atrial fibrillation [I48.91] INVALID FOR* Vitamin D deficiency [E55.9] INVALID FOR* Anxiety [F41.9] INVALID FOR* Controlled substance agreement signed [Z79.899] INVALID FOR* Diabetes (HCC) [E11.9] INVALID FOR*08/14/2015 Stress and adjustment reaction [F43.29] INVALID FOR* Chronic abdominal pain [R10.9, G89.29] INVALID FOR* ADD (attention deficit disorder) without hypera*INVALID FOR* Hyperparathyroidism , secondary, non-renal (HCC*INVALID FOR* Hyperparathyroidism, primary (HCC) [E21.0] INVALID FOR* Encounter Status:Closed by MENDY PERES on 07/26/17 DISCHARGE SUMMARY Observed: 07/15/2017 Status: F Source: [place] 7:15 AM [facility] REPOSITORY [facility] Medical Records Department [address] [place] [address] Discharge Summary 06/22/17 1454 MR#: [id number] Acct: [id number] Name: KATHERIN MARTIN Rep #: [id number] : 1940 76 From: Nathaniel Cuellar DO PCP: Moo Reaves MD Status: DIS IN Y Location: [facility] [id number] ADDENDUM by Nathaniel Cuellar DO on 07/15/17 at 0715 Code Visit Obesity class III 07/15/17 0715 <Electronically signed by Nathaniel Cuellar DO> Date Nathaniel Cuellar DO cc: Nathaniel Cuellar DO; Moo Revaes MD * Signed ADDENDUM by Nathaniel Cuellar DO on 06/25/17 at 1323 Code Visit BMI 40. Obesity class III. 06/25/17 1323 <Electronically signed by Nathaniel Cuellar DO> Date Nathaniel Cuellar DO cc: Nathaniel Cuellar DO; Moo Reaves MD * Signed Discharge Date and Diagnosis - Problem List Patient Problems: Active and Suspected Problems (Last Updated 04/23/17 @ 09:56 by Armida Neal) SBO (small bowel obstruction) (Acute) Date of Admission: 06/19/17 Date of Discharge: 06/22/17 - Primary Discharge Diagnosis Active and Suspected Problems (Last Updated 04/23/17 @ 09:56 by Armida Neal) SBO (small bowel obstruction) (Acute) - Secondary Discharge Diagnosis Chronic Problems (Last Updated 04/23/17 @ 09:56 by Armida Neal) Diabetes mellitus (Chronic) Anxiety (Chronic) Edema (Chronic) Right knee meniscus surgery (Chronic) Afib (Chronic) SBO (small bowel obstruction) (Chronic) Hyperlipidemia (Chronic) Osteoarthritis (Chronic) Hypertension (Chronic) Type 2 diabetes mellitus (Chronic) Hospital Course and Treatment Imaging Results: Clinical Impression(s) from Imaging Studies Abdomen/Pelvis CT 06/19/17 13:33 IMPRESSION: Early low grade proximal small bowel obstruction versus localized ileus and adynamic segment. Extensive Postop changes as above. Electronically Signed: Fabricio Interiano MD at 16:18 EDT , Service support , Abdomen X-Ray 06/20/17 05:00 IMPRESSION: Obstructive bowel gas pattern. Electronically Signed: Aiden Luna MD at 5:17 EDT Tel , Service support , Abdomen X-Ray 06/21/17 06:00 IMPRESSION: Dilated small bowel loops on the left measuring up to 3.4 cm in diameter. This has improved compared to previous study. Electronically Signed: Aiden Luna MD at 6:24 EDT Tel , Service support , [facility]. Operations: None Procedures: None Summary of Care Provided: The patient is a 76 year old F presents with abdominal pain. He was just discharged from the transitional care unit on an while she was very patient stated that she was having abdominal pain. Patient was sent home nonetheless. Patient presented to the emergency room and was found to have a small bowel obstruction. NG tube was attempted but unsuccessful given prior nasal bone fractures. General surgery was consulted but patient overall improved. Past couple days patient tolerated clear and then soft diet. Plan is for the patient to be discharged home today. As patient is very discharge from transitional care unit patient had outpatient therapy services established. [] Discharge Diet: Low fat/ Low Cholesterol Discharge Activity: Return to Normal Activity Call your doctor if you observe: Fever of 101 or Higher, Shortness of breath, Chest pain, - - worsening abdominal pain. Home Medications: Medications to take at Discharge ALPRAZolam [Xanax] 0.5 mg PO QHS 12/11/13 Diltiazem CD [Cardizem CD] 240 mg PO DAILY 12/11/13 Sitagliptin Phosphate [Januvia] 100 mg PO DAILY 05/30/17 Acetaminophen [Tylenol] 1,000 mg PO Q8H PRN PRN tablet 06/12/17 Empagliflozin [Jardiance] 25 mg PO DAILY #30 tab 06/12/17 Menthol/Lanolin/Calamine/Znox [Calmoseptine Ointment] 1 applic TOPICAL 0600,2200 tube 06/12/17 Ondansetron [Zofran Odt] 4 mg PO Q6H PRN PRN #30 tab 06/12/17 Rivaroxaban [Xarelto] 20 mg PO DAILY@0600 #30 tab 06/12/17 Oxycodone [Oxyir] 5 - 10 mg PO Q4H PRN PRN 3 Days #12 tablet 06/22/17 Following Prescrptions Were Given to Patient: Oxycodone [Oxyir] 5 - 10 mg PO Q4H PRN PRN 3 Days #12 tablet PRN Reason: Severe Pain (6-11/27) Primary Care Physician: Moo Reaves MD [Primary Care Provider] - Within 2 Weeks Disposition: Home Minutes spent on discharge:: 32 Patient Condition:: Good Medical Necessity - Tobacco Use Smoking Status: Never smoker Meaningful Use Info Meaningful Use Diagnoses (Choose all that apply): None applicable Code Visit Inpatient E AND M: [id number] Disch Hosp 06/22/17 1457 <Electronically signed by Nathaniel Cuellar DO> Date Nathaniel Cuellar DO Cosigner Signature (if applicable): Date CC: Nathaniel Cuellar DO; Moo Reaves MD Signed ORTHOPEDIC VISIT Observed: 07/02/2017 Status: F Source: [place] REPORT 3:56 PM [facility] REPOSITORY [facility] Orthopaedics AND Sports Medicine [address] [place] [address] OFFICE VISIT Date of Service: 07/02/17 MR#: [id number] Acct: [id number] Name: KATHERIN MARTIN Rep #: [id number] : 1940 Provider: Mendy Walker DO Age/Sex: 76/F Location: [facility] Status: Signed Intake Intake Visit Reasons: RIGHT KNEE Chief Complaint: abdominal pain, nausea Is patient in pain?: Yes Allergies ramelteon [From Rozerem] Allergy (Verified 07/02/17 13:34) Other bupropion Adverse Reaction (Verified 07/02/17 13:34) Other bupropion HCl [From Wellbutrin] Adverse Reaction (Verified 07/02/17 13:34) Other dexfenfluramine HCl [From Redux] Adverse Reaction (Verified 07/02/17 13:34) Unknown hydrochlorothiazide Adverse Reaction (Verified 07/02/17 13:34) Other ketorolac tromethamine [From Toradol] Adverse Reaction (Verified 07/02/17 13:34) Itching oxaprozin [From Daypro] Adverse Reaction (Verified 07/02/17 13:34) Other Medications ALPRAZolam [Xanax] 0.5 mg PO QHS 12/11/13 [History Confirmed 06/19/17] Diltiazem CD [Cardizem CD] 240 mg PO DAILY 12/11/13 [History Confirmed 06/19/17] Sitagliptin Phosphate [Januvia] 100 mg PO DAILY 05/30/17 [History Confirmed 06/19/17] Acetaminophen [Tylenol] 1,000 mg PO Q8H PRN PRN tab 06/12/17 [Rx Confirmed 06/19/17] Empagliflozin [Jardiance] 25 mg PO DAILY #30 tab 06/12/17 [Rx Confirmed 06/19/17] Menthol/Lanolin/Calamine/Znox [Calmoseptine Ointment] 1 applic TOPICAL 0600,2200 tube 06/12/17 [Rx Confirmed 06/19/17] Ondansetron [Zofran Odt] 4 mg PO Q6H PRN PRN #30 tab 06/12/17 [Rx Confirmed 06/19/17] Rivaroxaban [Xarelto] 20 mg PO DAILY@0600 #30 tab 06/12/17 [Rx Confirmed 06/19/17] Oxycodone [Oxyir] 5 - 10 mg PO Q4H PRN PRN 3 Days #12 tab 06/22/17 [Rx] PFSH Medical History whipple surgery (Inactive) Surgical History S/P right knee surgery (Acute) History of bilateral carpal tunnel release (Inactive) History of bladder suspension procedure (Inactive) History of hysterectomy (Inactive) S/P cholecystectomy (Inactive) sigmoid colon removed (Inactive) vaginal wall repaired (Inactive) Family History Mother Myocardial infarction Social History Smoking Status: Never smoker HPI RIGHT KNEE: Details: KATHERIN MARTIN is a 76 year old F here today for s/p right knee medial meniscus repair, dos 05/15/17. She states that she is doing better. Patient has pain at times depending on how she sleeps. Patient notes that she has a snapping over her medial knee. She notes that she has swelling. Patient was in the TCU for a month due to a bladder infection and bowel obstruction. She was able to do physical therapy while there. Patients incisions are fully healed. She denies any calf pain. ROS Const Reports system reviewed and no additional complaints, except as docu Eyes Reports system reviewed and no additional complaints, except as docu ENT Reports system reviewed and no additional complaints, except as docu Card Reports system reviewed and no additional complaints, except as docu Resp Reports system reviewed and no additional complaints, except as docu GI Reports system reviewed and no additional complaints, except as docu Reports system reviewed and no additional complaints, except as docu Musc Reports joint pain Skin/Breast Reports system reviewed and no additional complaints, except as docu Neuro Yes system reviewed and no additional complaints, except as docu Psych Reports system reviewed and no additional complaints, except as docu Endo Reports system reviewed and no additional complaints, except as docu Ortho Exam Right Knee Date of Surgery: 05/15/17 Skin/Wound: Yes healed Contralateral Normal: Yes Swelling: Yes Homans Sign: No 2+: Effusion Knee ROM: Yes ROM-Extension -20 to 0, Yes ROM-Flexion 0-140 (120) Examination: Yes Pain with flexion, Yes Pain with extention Assessment AND Plan 1. Orthopedic aftercare Z47.89 Plan Instructed to work on strengthening, her swelling remains and explained that with the trauma after her surgery we will be more conservative now. We can discuss an aspiration and injection at three months post op. We will repeat the US at 3months jeffery as well, and d/c the anticoagulant if negative. Gave PT script today. Follow up in 6 wks or sooner if pain, swelling, numbness or associated symptoms, or concerns develop. All questions answered. Patient in agreement of plan. Coding Level of Care Code Global Post Op Diagnoses Orthopedic aftercare Z47.89 07/02/17 1556 <Electronically signed by Mendy Walker DO> Date Mendy Walker DO Cosigner Signature: Date (if applicable) CC: PROGRESS Observed: 06/28/2017 Status: COMPLETED Source: [place] 10:28 AM [facility] [place] REPOSITORY HNO ID: [id number] Author: Moo Reaves Service: (none) Author Type: Physician Type: Progress Notes Filed: 07/11/2017 12:49 PM Note Text: Transitional Care Management Progress Note The patients TCM visit was performed within the 7 days of discharge. Patient's Date of discharge: 06/22/17 Date of initial coordinator contact after discharge: 06/25/17 Discharge diagnosis: SBO Medication review completed Yes Patient Outreach Open 06/25/2017 [facility] Internal Medicine Transition Of Care Reason for Visit Progress Notes Unsigned TRANSITION CARE MANAGEMENT (TCM) INITIAL CONTACT ? ? Provider Action/FYI: ? ? Initial contact with patient post discharge, spoke to Katherin. Patient identified by name and . ? SUMMARY: -Pt discharged from [facility] on 06/22/17. -Follow up appointment on 06/27 w/V. -Medication review done at appt. -Admitted for: SBO ? CONCERNS: Pt complaining about a myriad of problems. Feels shouldn't have been increased on Cymbalta... made her out of her mind. Family said she was crawling aroundon floor, incoherent, etc. ? NEW MEDICATIONS: Oxycodone IR 5mg #12 on D/C ? MEDS HELD/DISCONTINUED: None ? BRIEF HOSPITAL COURSE: Patient is a 76-year-old female admitted 05/30/17 due to altered mental status. She has a past medical history of hyperlipidemia, osteoarthritis, hypertension, type 2 diabetes mellitus, depression, anxiety, recent right knee meniscus surgery. ? 1. Altered mental status, suspected encephalopathy secondary to polypharmacy-patient states she recently had a few deaths in her family and has been having increased anxiety and depression. Her Cymbalta was increased by primary care physician to 60 mg daily and then decreased back to 30mg. Patient is a poor informant regarding her medications. She is also taking Ambien at night to help her sleep as well as Percocet as needed for pain in which she has received multiple recent prescriptions. She is also on Xanax at bedtime which she states she has been on for approximately 15-20 years. Patient states she has not been taking her medications for 1-2 weeks following surgery due to being out of sorts. She states she normally lays out her medication in a pill dispenser and has not been doing that since her recent surgery. She was started on Seroquel. Cymbalta discontinued. Her mental status is now at baseline. Patient also diagnosed with UTI prior to admission, she completed course of nitrofurantoin. UA and urine culture during admission unremarkable. Brain CT shows chronic changes. Chest x-ray shows no acute abnormality. Ambien is not listed on patient's home medication regimen although she states she takes at home. Recommend discontinuing Ambien at discharge. ? 2. Chest pain-resolved. Suspected secondary to anxiety. Troponin negative. EKG without evidence of ischemia. ? 3. Physical debility status post recent right meniscal surgery-patient underwent right knee meniscal surgery 05/15/[address] Walker. Patient states she was told that she will need further repair due to incident prior to admission of patient crawling on knees. Continue outpatient follow-up. TCU at discharge. ? 4. Recent right lower extremity DVT-occurred following recent right meniscal surgery. Continue Xarelto. ? 5. Paroxysmal atrial fibrillation-currently sinus rhythm. Continue Cardizem and Xarelto. ? 6. Type 2 diabetes mellitus-continue home oral regimen. ? 7. Hypertension-stable, continue current regimen. ? The patient is a 76 year old F presents with abdominal pain. He was just discharged from the transitional care unit on an while she was very patient stated that she was having abdominal pain. Patient was sent home nonetheless. Patient presented to the emergency room and was found to have a small bowel obstruction. NG tube was attempted but unsuccessful given prior nasal bone fractures. General surgery was consulted but patient overall improved. Past couple days patient tolerated clear and then soft diet. Plan is for the patient to be discharged home today. As patient is very discharge from transitional care unit patient had outpatient therapy services established. [] ? Moo Reaves MD Provider Documentation: In follow-up of hospitalization, Katherin Martin is a 76 year old female with the chief complaint of was admitted for SBO but noted confusion after Cymbalta dose was increased. I have reviewed the patient?s last hospital course including diagnostic testing performed during this hospitalization, their discharge medications, and my assessment and plan with the patient and any family members present at today?s visit. Patient presents with: TCM SUBJECTIVE: Katherin Martin is a 76 year old year old lady here today for TCM follow up appointment for review of medical conditions. Did not do well when Cymbalta was doubled.Confusion and crawling around as noted above. Now worried might have problems with right knee that had surgery for right meniscus. No signs of SBO now. Confusion resolved. Working on getting strength back up. Blood pressure controlled without adverse effects from medications. Sugars doing fine. Complains on persistent pain and need to take pain pill--had been on per prior PCP for years. Also issues with anxiety ongoing. Chronically on Xanax per prior PCP. Depression not too bad of an issue at this time. PAST MEDICAL HISTORY Diagnosis Date - Abdominal pain, right upper quadrant 10/26/2005 - Abnormal ECG 11/27/2013 - Bicipital tenosynovitis 05/28/2005 - CARDIAC DYSRHYTHMIAS NEC 12/11/2004 - Decreased libido 11/21/2011 - Diverticulitis 12/18/13 - DIVERTICULITIS OF COLON W/O BLEED 12/11/2004 - Hyperparathyroidism , secondary, non-renal (HCC) 06/20/2016 - Incisional hernia 11/02/2013 - ISOLATED OR SPECIFIC PHOBIAS NEC 12/11/2004 - Left lower quadrant pain 11/02/2013 - LLQ pain 12/18/13 - Menopausal hot flushes 10/17/2011 - OBESITY NOS 12/11/2004 - OSTEOARTHROS NOS-OTHER SITE 12/11/2004 L knee arthritis - Other voice and resonance disorders 10/24/2011 - PEPTIC ULCER NOS 12/11/2004 - Transient disorder of initiating or maintaining sleep 02/14/2005 - Vaginal dryness, menopausal 10/17/2011 Current Outpatient Prescriptions: empagliflozin (JARDIANCE) 25 mg tablet Take 1 tablet by mouth once daily. ondansetron orally disintegrating (ZOFRAN ODT) 4 mg disintegrating tablet Take 1 tablet by mouth every 6 hours as needed. [START ON 07/24/2017] rivaroxaban (XARELTO) 20 mg tablet Take 1 tablet by mouth daily with dinner. sitaGLIPtin (JANUVIA) 100 mg tablet Take 1 tablet by mouth once daily. cholecalciferol, Vitamin D3, (VITAMIN D3) 50,000 unit cap capsule Take 1 capsule by mouth twice a week. ALPRAZolam (XANAX) 0.5 mg tablet TAKE 1 TABLET BY MOUTH TWICE A DAY Zolpidem (AMBIEN CR) 12.5 mg CR tablet Take 1 tablet by mouth daily at bedtime for 180 days. cyanocobalamin 1,000 mcg/mL soln Inject 1 mL intramuscularly once every month. oxyCODONE-acetaminophen (PERCOCET) 7.5-325 mg tablet Take 1 tablet by mouth twice daily as needed for up to 30 days. For severe pain.Earliest Fill Date: 05/14/17 codeine-guaiFENesin (GUAIFENESIN AC) 10-100 mg/5 mL syrup Take 5 mL by mouth once daily as needed for up to 90 days. fluticasone (FLONASE) 50 mcg/actuation nasal spray Use 2 Sprays in each nostril once daily. Rinse mouth after use. benzonatate (TESSALON PERLE) 100 mg capsule Take 1 capsule by mouth three times daily as needed. Lancets lancets Test blood sugar(s) once or twice daily. Dx: E11.9. Med: Invokana. One touch meter. pravastatin (PRAVACHOL) 20 mg tablet Take 1 tablet by mouth daily at bedtime.HAS NOT BEEN TAKING irbesartan (AVAPRO) 300 mg tablet Take 1 tablet by mouth once daily. HAS NOT BEEN TAKING bumetanide (BUMEX) 0.5 mg tablet Take 1 tablet by mouth once daily. As directed (may decrease to every other day if no swelling recurs)--HAS NOT BEEN TAKING nystatin (MYCOSTATIN) powder Apply 1 application to affected area three times daily. As directed for treatment of yeast infection blood sugar diagnostic (BLOOD GLUCOSE TEST) test strip Test blood sugar(s) once or twice daily. Dx: E11.9. Med: Invokana. One touch meter. diltiazem XR (DILTIA XT) 240 mg 24 hr capsule Take 1 capsule by mouth once daily. esterified estrogens-methylTESTOSTERone (ESTRATEST HS) 0.625- 1.25 mg per tablet Take 1 tablet by mouth once daily. aluminum hydrox-magnesium carb (GAVISCON) 95-358 mg/15 mL suspension Take 15 mL by mouth every 6 hours as needed. icosapent ethyl (VASCEPA) 1 gram cap Take by mouth. No current facility-administered medications for this visit. OBJECTIVE: BP 124/82 Pulse 92 Wt 98.4 kg (217 lb) SpO2 94% BMI 38.44 kg/m? Patient is alert, oriented times 3, no apparent distress, affect is bright, reactive. Last 5 Encounter BP Readings: Date: BP: 06/28/2017 124/82 05/29/2017 124/78 05/08/2017 138/84 04/11/2017 122/74 03/15/2017 112/72 Last 5 Encounter Wt Readings: Date: Wt: 06/28/2017 98.4 kg (217 lb) 05/29/2017 99.8 kg (220 lb) 05/08/2017 99.3 kg (219 lb) 04/11/2017 101.2 kg (223 lb) 03/15/2017 102.5 kg (226 lb) Heart: Regular rate, rhythm, no murmurs, gallops, rubs. Lungs: Clear to auscultation, bilaterally, breathing non labored. Ext: No cyanosis, clubbing, or edema. ASSESSMENT AND PLAN: Encounter Diagnosis ICD-10-CM 1. Essential hypertension I10 COMP METABOLIC PANEL TSH BLD T4 FREE/FREE THYROX 2. Controlled type 2 diabetes mellitus without complication, without long-term current use of insulin (HCC) E11.9 COMP METABOLIC PANEL HGB A1C 3. Vitamin D deficiency E55.9 cholecalciferol, Vitamin D3, (VITAMIN D3) 50,000 unit cap capsule VITAMIN D 25 HYDROXY 4. Fatigue, unspecified type R53.83 TSH BLD T4 FREE/FREE THYROX 5. Cough R05 codeine-guaiFENesin (GUAIFENESIN AC) 10-100 mg/5 mL syrup Morning cough; cough med 1 tsp every 3 to 4 days helps 6. Primary osteoarthritis involving multiple joints M15.0 oxyCODONE-acetaminophen (PERCOCET) 7.5-325 mg tablet Additional Medical Conditions Last edited 06/28/17 11:15 EDT by Moo Reaves MD Slowly improving with strength since hospital stay. Will hold off on adding any other meds such as Cymbalta. Discussed that confusion she had was probably not just from increased dose of Cymbalta but from that plus all her other meds plus the acute problems with bowels. Probably dehydration from poor oral intake contributed. Discussed would avoid going back to frequent routine use of Percocet for pain--avoid ramping up to prior dosing. Might need to decide which med--Xanax or Percocet--if rules and regulations getting more strict. For now, since still recovering from knee surgery, will stay on both med and try to limit total per day to decrease risk of falls and exacerbation of pain from those falls. Further evaluation and treatment as indicated. Chronic medical issues stable/controlled at this time. Continue present management. Above issues addressed with patient. Patient involved in shared decision making for management of her medical issues. History and medications reviewed. Epic updated as needed Refills taken care of and meds adjusted as indicated after reviewed history, exam and labs. Health Maintenance reviewed. Updated record and/or ordered tests as recorded. Encouraged on efforts at healthy diet and regular exercise and adequate sleep. The majority of the visit was spent counseling and/or coordinating care for the patient. Iexl-[id number]-[id number] time was at least 30 minutes. Moo Reaves MD CNOV Observed: 06/28/2017 Status: COMPLETED Source: [facility] 10:00 AM [facility] REPOSITORY Office Visit (INTMWS) KATHERIN MARTIN ([id number]) 1940 F Date Time Provider Department 06/28/17 10:00 AM MOO REAVES INTMWS During your visit today, we recorded the following information about you: Pulse Blood pressure Weight 92/minute 124/82 98.4 kg Moo Reaves MD 07/11/2017 12:49 PM Signed Transitional Care Management Progress Note The patients TCM visit was performed within the 7 days of discharge. Patient's Date of discharge: 06/22/17 Date of initial coordinator contact after discharge: 06/25/17 Discharge diagnosis: SBO Medication review completed Yes Patient Outreach Open 06/25/2017 [facility] Internal Medicine Transition Of Care Reason for Visit Progress Notes Unsigned TRANSITION CARE MANAGEMENT (TCM) INITIAL CONTACT ? ? Provider Action/FYI: ? ? Initial contact with patient post discharge, spoke to Katherin. Patient identified by name and . ? SUMMARY: -Pt discharged from [facility] on 06/22/17. -Follow up appointment on 06/27 w/ARPITA. -Medication review done at [facility]. -Admitted for: SBO ? CONCERNS: Pt complaining about a myriad of problems. Feels shouldn't have been increased on Cymbalta... made her out of her mind. Family said she was crawling aroundon floor, incoherent, etc. ? NEW MEDICATIONS: Oxycodone IR 5mg #12 on D/C ? MEDS HELD/DISCONTINUED: None ? BRIEF HOSPITAL COURSE: Patient is a 76-year-old female admitted 05/30/17 due to altered mental status. She has a past medical history of hyperlipidemia, osteoarthritis, hypertension, type 2 diabetes mellitus, depression, anxiety, recent right knee meniscus surgery. ? 1. Altered mental status, suspected encephalopathy secondary to polypharmacy-patient states she recently had a few deaths in her family and has been having increased anxiety and depression. Her Cymbalta was increased by primary care physician to 60 mg daily and then decreased back to 30mg. Patient is a poor informant regarding her medications. She is also taking Ambien at night to help her sleep as well as Percocet as needed for pain in which she has received multiple recent prescriptions. She is also on Xanax at bedtime which she states she has been on for approximately 15-20 years. Patient states she has not been taking her medications for 1-2 weeks following surgery due to being out of sorts. She states she normally lays out her medication in a pill dispenser and has not been doing that since her recent surgery. She was started on Seroquel. Cymbalta discontinued. Her mental status is now at baseline. Patient also diagnosed with UTI prior to admission, she completed course of nitrofurantoin. UA and urine culture during admission unremarkable. Brain CT shows chronic changes. Chest x-ray shows no acute abnormality. Ambien is not listed on patient's home medication regimen although she states she takes at home. Recommend discontinuing Ambien at discharge. ? 2. Chest pain-resolved. Suspected secondary to anxiety. Troponin negative. EKG without evidence of ischemia. ? 3. Physical debility status post recent right meniscal surgery-patient underwent right knee meniscal surgery 05/15/[address] Walker. Patient states she was told that she will need further repair due to incident prior to admission of patient crawling on knees. Continue outpatient follow-up. TCU at discharge. ? 4. Recent right lower extremity DVT-occurred following recent right meniscal surgery. Continue Xarelto. ? 5. Paroxysmal atrial fibrillation-currently sinus rhythm. Continue Cardizem and Xarelto. ? 6. Type 2 diabetes mellitus-continue home oral regimen. ? 7. Hypertension-stable, continue current regimen. ? The patient is a 76 year old F presents with abdominal pain. He was just discharged from the transitional care unit on an while she was very patient stated that she was having abdominal pain. Patient was sent home nonetheless. Patient presented to the emergency room and was found to have a small bowel obstruction. NG tube was attempted but unsuccessful given prior nasal bone fractures. General surgery was consulted but patient overall improved. Past couple days patient tolerated clear and then soft diet. Plan is for the patient to be discharged home today. As patient is very discharge from transitional care unit patient had outpatient therapy services established. [] ? Moo Reaves MD Provider Documentation: In follow-up of hospitalization, Katherin Martin is a 76 year old female with the chief complaint of was admitted for SBO but noted confusion after Cymbalta dose was increased. I have reviewed the patient?s last hospital course including diagnostic testing performed during this hospitalization, their discharge medications, and my assessment and plan with the patient and any family members present at today?s visit. Patient presents with: TCM SUBJECTIVE: Katherin Martin is a 76 year old year old lady here today for TCM follow up appointment for review of medical conditions. Did not do well when Cymbalta was doubled.Confusion and crawling around as noted above. Now worried might have problems with right knee that had surgery for right meniscus. No signs of SBO now. Confusion resolved. Working on getting strength back up. Blood pressure controlled without adverse effects from medications. Sugars doing fine. Complains on persistent pain and need to take pain pill--had been on per prior PCP for years. Also issues with anxiety ongoing. Chronically on Xanax per prior PCP. Depression not too bad of an issue at this time. PAST MEDICAL HISTORY Diagnosis Date - Abdominal pain, right upper quadrant 10/26/2005 - Abnormal ECG 11/27/2013 - Bicipital tenosynovitis 05/28/2005 - CARDIAC DYSRHYTHMIAS NEC 12/11/2004 - Decreased libido 11/21/2011 - Diverticulitis 12/18/13 - DIVERTICULITIS OF COLON W/O BLEED 12/11/2004 - Hyperparathyroidism , secondary, non-renal (HCC) 06/20/2016 - Incisional hernia 11/02/2013 - ISOLATED OR SPECIFIC PHOBIAS NEC 12/11/2004 - Left lower quadrant pain 11/02/2013 - LLQ pain 12/18/13 - Menopausal hot flushes 10/17/2011 - OBESITY NOS 12/11/2004 - OSTEOARTHROS NOS-OTHER SITE 12/11/2004 L knee arthritis - Other voice and resonance disorders 10/24/2011 - PEPTIC ULCER NOS 12/11/2004 - Transient disorder of initiating or maintaining sleep 02/14/2005 - Vaginal dryness, menopausal 10/17/2011 Current Outpatient Prescriptions: empagliflozin (JARDIANCE) 25 mg tablet Take 1 tablet by mouth once daily. ondansetron orally disintegrating (ZOFRAN ODT) 4 mg disintegrating tablet Take 1 tablet by mouth every 6 hours as needed. [START ON 07/24/2017] rivaroxaban (XARELTO) 20 mg tablet Take 1 tablet by mouth daily with dinner. sitaGLIPtin (JANUVIA) 100 mg tablet Take 1 tablet by mouth once daily. cholecalciferol, Vitamin D3, (VITAMIN D3) 50,000 unit cap capsule Take 1 capsule by mouth twice a week. ALPRAZolam (XANAX) 0.5 mg tablet TAKE 1 TABLET BY MOUTH TWICE A DAY Zolpidem (AMBIEN CR) 12.5 mg CR tablet Take 1 tablet by mouth daily at bedtime for 180 days. cyanocobalamin 1,000 mcg/mL soln Inject 1 mL intramuscularly once every month. oxyCODONE-acetaminophen (PERCOCET) 7.5-325 mg tablet Take 1 tablet by mouth twice daily as needed for up to 30 days. For severe pain.Earliest Fill Date: 05/14/17 codeine-guaiFENesin (GUAIFENESIN AC) 10-100 mg/5 mL syrup Take 5 mL by mouth once daily as needed for up to 90 days. fluticasone (FLONASE) 50 mcg/actuation nasal spray Use 2 Sprays in each nostril once daily. Rinse mouth after use. benzonatate (TESSALON PERLE) 100 mg capsule Take 1 capsule by mouth three times daily as needed. Lancets lancets Test blood sugar(s) once or twice daily. Dx: E11.9. Med: Invokana. One touch meter. pravastatin (PRAVACHOL) 20 mg tablet Take 1 tablet by mouth daily at bedtime.HAS NOT BEEN TAKING irbesartan (AVAPRO) 300 mg tablet Take 1 tablet by mouth once daily. HAS NOT BEEN TAKING bumetanide (BUMEX) 0.5 mg tablet Take 1 tablet by mouth once daily. As directed (may decrease to every other day if no swelling recurs)--HAS NOT BEEN TAKING nystatin (MYCOSTATIN) powder Apply 1 application to affected area three times daily. As directed for treatment of yeast infection blood sugar diagnostic (BLOOD GLUCOSE TEST) test strip Test blood sugar(s) once or twice daily. Dx: E11.9. Med: Invokana. One touch meter. diltiazem XR (DILTIA XT) 240 mg 24 hr capsule Take 1 capsule by mouth once daily. esterified estrogens-methylTESTOSTERone (ESTRATEST HS) 0.625- 1.25 mg per tablet Take 1 tablet by mouth once daily. aluminum hydrox-magnesium carb (GAVISCON) 95-358 mg/15 mL suspension Take 15 mL by mouth every 6 hours as needed. icosapent ethyl (VASCEPA) 1 gram cap Take by mouth. No current facility-administered medications for this visit. OBJECTIVE: BP 124/82 Pulse 92 Wt 98.4 kg (217 lb) SpO2 94% BMI 38.44 kg/m? Patient is alert, oriented times 3, no apparent distress, affect is bright, reactive. Last 5 Encounter BP Readings: Date: BP: 06/28/2017 124/82 05/29/2017 124/78 05/08/2017 138/84 04/11/2017 122/74 03/15/2017 112/72 Last 5 Encounter Wt Readings: Date: Wt: 06/28/2017 98.4 kg (217 lb) 05/29/2017 99.8 kg (220 lb) 05/08/2017 99.3 kg (219 lb) 04/11/2017 101.2 kg (223 lb) 03/15/2017 102.5 kg (226 lb) Heart: Regular rate, rhythm, no murmurs, gallops, rubs. Lungs: Clear to auscultation, bilaterally, breathing non labored. Ext: No cyanosis, clubbing, or edema. ASSESSMENT AND PLAN: Encounter Diagnosis ICD-10-CM 1. Essential hypertension I10 COMP METABOLIC PANEL TSH BLD T4 FREE/FREE THYROX 2. Controlled type 2 diabetes mellitus without complication, without long-term current use of insulin (HCC) E11.9 COMP METABOLIC PANEL HGB A1C 3. Vitamin D deficiency E55.9 cholecalciferol, Vitamin D3, (VITAMIN D3) 50,000 unit cap capsule VITAMIN D 25 HYDROXY 4. Fatigue, unspecified type R53.83 TSH BLD T4 FREE/FREE THYROX 5. Cough R05 codeine-guaiFENesin (GUAIFENESIN AC) 10-100 mg/5 mL syrup Morning cough; cough med 1 tsp every 3 to 4 days helps 6. Primary osteoarthritis involving multiple joints M15.0 oxyCODONE-acetaminophen (PERCOCET) 7.5-325 mg tablet Additional Medical Conditions Last edited 06/28/17 11:15 EDT by Moo Reaves MD Slowly improving with strength since hospital stay. Will hold off on adding any other meds such as Cymbalta. Discussed that confusion she had was probably not just from increased dose of Cymbalta but from that plus all her other meds plus the acute problems with bowels. Probably dehydration from poor oral intake contributed. Discussed would avoid going back to frequent routine use of Percocet for pain--avoid ramping up to prior dosing. Might need to decide which med--Xanax or Percocet--if rules and regulations getting more strict. For now, since still recovering from knee surgery, will stay on both med and try to limit total per day to decrease risk of falls and exacerbation of pain from those falls. Further evaluation and treatment as indicated. Chronic medical issues stable/controlled at this time. Continue present management. Above issues addressed with patient. Patient involved in shared decision making for management of her medical issues. History and medications reviewed. Epic updated as needed Refills taken care of and meds adjusted as indicated after reviewed history, exam and labs. Health Maintenance reviewed. Updated record and/or ordered tests as recorded. Encouraged on efforts at healthy diet and regular exercise and adequate sleep. The majority of the visit was spent counseling and/or coordinating care for the patient. Vbbk-vr-oebt time was at least 30 minutes. MD Moo Zepeda MD 06/28/2017 11:13 AM Signed Avapro--may resume at half pill once daily if blood pressure gets over 140/90. Labs sometime next month. Referring Provider: SELF [[id number]] Allergies As of Date: 06/28/2017 Noted Allergy Reaction TORADOL (KETOROLAC TROMETHAMINE) 11/16/2004 7 - Swelling Comments: itching CYMBALTA (DULOXETINE) 06/28/2017 1 - Mental Status Change Comments: confusion; nightmares; may have been due to also UTI, etc but will not try again REDUX 11/05/2016 1 - Mental Status Change Comments: nightmares ROZEREM (RAMELTEON) 06/20/2016 5 - Intolerance Comments: [place] paralyzed and gave her nightmares Date Reviewed: 06/28/2017 Reviewed by: Bambi Mojica Stallion Manager - Fully Assessed Reason for Visit: TCM [Other] Primary Visit Diagnosis:Essential hypertension [I10] Other Visit Diagnoses:Controlled type 2 diabetes mellitus without complication, without long-term current use of insulin (HCC) [E11.9] Vitamin D deficiency [E55.9] Fatigue, unspecified type [R53.83] Cough [R05] Comment:Morning cough; cough med 1 tsp every 3 to 4 days helps Primary osteoarthritis involving multiple joints [M15.0] Order(s):empagliflozin (JARDIANCE) 25 mg tabletTake 1 tablet by mouth once daily.Disp: 90 tabletRfl: 3 ondansetron orally disintegrating (ZOFRAN ODT) 4 mg disintegrating tabletTake 1 tablet by mouth every 6 hours as needed.Disp: 30 tabletRfl: 0 [START ON 07/24/2017] rivaroxaban (XARELTO) 20 mg tabletTake 1 tablet by mouth daily with dinner.Disp: 30 tabletRfl: 1 sitaGLIPtin (JANUVIA) 100 mg tabletTake 1 tablet by mouth once daily.Disp: 90 tabletRfl: 3 cholecalciferol, Vitamin D3, (VITAMIN D3) 50,000 unit cap capsuleTake 1 capsule by mouth twice a week.Disp: 24 capsuleRfl: 3 bumetanide (BUMEX) 0.5 mg tabletTake 1 tablet by mouth once daily as needed. As directed for swellingDisp: Rfl: COMP METABOLIC PANEL [SQCMP] Order #: [id number] FUTURE TSH BLD [SQTSH] Order #: [id number] FUTURE T4 FREE/FREE THYROX [SQFT4] Order #: [id number] FUTURE VITAMIN D 25 HYDROXY [SQVITD] Order #: [id number] FUTURE HGB A1C [GRIGJ3M] Order #: [id number] FUTURE codeine-guaiFENesin (GUAIFENESIN AC) 10-100 mg/5 mL syrupTake 5 mL by mouth once daily as needed for up to 90 days.Disp: 240 mLRfl: 0 oxyCODONE-acetaminophen (PERCOCET) 7.5-325 mg tabletTake 1 tablet by mouth twice daily as needed for up to 30 days. For severe pain.Disp: 60 tabletRfl: 0 Prescriptions as of 06/28/2017 Sig: EMPAGLIFLOZIN 25 MG TABLET Take 1 tablet by mouth once d* ONDANSETRON 4 MG DISINTEGRATI* Take 1 tablet by mouth every * RIVAROXABAN 20 MG TABLET Take 1 tablet by mouth daily * SITAGLIPTIN 100 MG TABLET Take 1 tablet by mouth once d* CHOLECALCIFEROL (VITAMIN D3) * Take 1 capsule by mouth twice* BUMETANIDE 0.5 MG TABLET Take 1 tablet by mouth once d* CODEINE 10 MG-GUAIFENESIN 100* Take 5 mL by mouth once daily* OXYCODONE-ACETAMINOPHEN 7.5 M* Take 1 tablet by mouth twice * ALPRAZOLAM 0.5 MG TABLET TAKE 1 TABLET BY MOUTH TWICE * ZOLPIDEM ER 12.5 MG TABLET,EX* Take 1 tablet by mouth daily * CYANOCOBALAMIN (VIT B-12) 1,0* Inject 1 mL intramuscularly o* FLUTICASONE 50 MCG/ACTUATION * Use 2 Sprays in each nostril * BENZONATATE 100 MG CAPSULE Take 1 capsule by mouth three* LANCETS Test blood sugar(s) once or t* PRAVASTATIN 20 MG TABLET Take 1 tablet by mouth daily * IRBESARTAN 300 MG TABLET Take 1 tablet by mouth once d* NYSTATIN 100,000 UNIT/GRAM TO* Apply 1 application to affect* BLOOD SUGAR DIAGNOSTIC STRIPS Test blood sugar(s) once or t* DILTIAZEM XR 240 MG CAP Take 1 capsule by mouth once * ESTERIFIED ESTROGENS-METHYLTE* Take 1 tablet by mouth once d* ALUMINUM HYDROX-MAGNESIUM CAR* Take 15 mL by mouth every 6 h* ICOSAPENT ETHYL 1 GRAM CAPSULE Take by mouth. Medication notes this encounter DULOXETINE 60 MG CAPSULE,DELAYED RELEASE >> Moo Reaves MD 06/28/2017 10:32 AM in addition to having had UTI, recent surgery, etc Problem List As Of Date 06/28/2017 Noted Resolved Primary osteoarthritis involving multiple joint*INVALID FOR* More... Obesity [E66.9] INVALID FOR* MYALGIA AND MYOSITIS NOS [AQU1670] INVALID FOR* Chronic Pancreatitis [K86.1] INVALID FOR* Osteopenia [M85.80] INVALID FOR* More... Essential hypertension [I10] INVALID FOR* Hypertriglyceridemia [E78.1] INVALID FOR* Diabetes mellitus type II INVALID FOR*10/05/2013 Depression [F32.9] INVALID FOR* Atrial fibrillation [I48.91] INVALID FOR* Vitamin D deficiency [E55.9] INVALID FOR* Anxiety [F41.9] INVALID FOR* Controlled substance agreement signed [Z79.899] INVALID FOR* Diabetes (HCC) [E11.9] INVALID FOR*08/14/2015 Stress and adjustment reaction [F43.29] INVALID FOR* Chronic abdominal pain [R10.9, G89.29] INVALID FOR* ADD (attention deficit disorder) without hypera*INVALID FOR* Hyperparathyroidism , secondary, non-renal (HCC*INVALID FOR* Hyperparathyroidism, primary (HCC) [E21.0] INVALID FOR* Other instructions from your clinician: Avapro--may resume at half pill once daily if blood pressure gets over 140/90. Labs sometime next month. Prescriptions ordered this encounter Disp Refills Start End EMPAGLIFLOZIN 25 MG TABLET 90 t* 3 06/28/2017 Route: ORAL Sig: Take 1 tablet by mouth once daily. ONDANSETRON 4 MG DISINTEGRATING TABL* 30 t* 0 06/28/2017 Route: ORAL Sig: Take 1 tablet by mouth every 6 hours as needed. RIVAROXABAN 20 MG TABLET 30 t* 1 07/24/2017 09/22/2017 Route: ORAL Sig: Take 1 tablet by mouth daily with dinner. SITAGLIPTIN 100 MG TABLET 90 t* 3 06/28/2017 Route: ORAL Sig: Take 1 tablet by mouth once daily. CHOLECALCIFEROL (VITAMIN D3) 50,000 * 24 c* 3 06/28/2017 Route: ORAL Sig: Take 1 capsule by mouth twice a week. BUMETANIDE 0.5 MG TABLET 06/28/2017 Class: Med Update Route: ORAL Sig: Take 1 tablet by mouth once daily as needed. As directed for swelling CODEINE 10 MG-GUAIFENESIN 100 MG/5 M* 240 * 0 06/28/2017 09/26/2017 Class: Print RX Route: ORAL Sig: Take 5 mL by mouth once daily as needed for up to 90 days. OXYCODONE-ACETAMINOPHEN 7.5 MG-325 M* 60 t* 0 06/28/2017 07/28/2017 Class: Print RX Route: ORAL Sig: Take 1 tablet by mouth twice daily as needed for up to 30 days. For severe pain. Medications Discontinued During This Encounter DULoxetine (CYMBALTA) 60 mg capsule 90 c* 1 05/08/2017 06/28/2017 Route: ORAL Sig: Take 1 capsule by mouth once daily. Disc: Adverse Reaction canagliflozin (INVOKANA) 300 mg tabl* 90 t* 1 05/08/2017 06/28/2017 Route: ORAL Sig: Take 1 tablet by mouth daily before breakfast. Disc: Clinical Decision empagliflozin (JARDIANCE) 25 mg tabl* 06/12/2017 06/28/2017 Class: Historical Med Route: ORAL Sig: Take 25 mg by mouth once daily. Disc: Reason for discontinue is not on file. ondansetron orally disintegrating (Z* 06/12/2017 06/28/2017 Class: Historical Med Route: ORAL Sig: Take 1 tablet by mouth every 6 hours as needed. Disc: Reason for discontinue is not on file. oxyCODONE-acetaminophen (PERCOCET) 7* 90 t* 0 04/14/2017 06/28/2017 Class: Print RX Route: ORAL Sig: Take 1 tablet by mouth every 6 hours as needed for Pain (increased frequency due to acute knee pain, continued chronic back pain) for up to 30 days. For severe pain. Earliest Fill Date: 04/14/17 Disc: Reason for discontinue is not on file. sitaGLIPtin (JANUVIA) 100 mg tablet 30 t* 1 05/08/2017 06/28/2017 Route: ORAL Sig: Take 1 tablet by mouth once daily. Disc: Reason for discontinue is not on file. cholecalciferol, Vitamin D3, (VITAMI* 24 c* 3 03/15/2017 06/28/2017 Route: ORAL Sig: Take 1 capsule by mouth twice a week. Disc: Reason for discontinue is not on file. bumetanide (BUMEX) 0.5 mg tablet 90 t* 3 12/04/2016 06/28/2017 Cmt: Cancel prescriptions for 1 mg tablet to avoid confusion Route: ORAL Sig: Take 1 tablet by mouth once daily. As directed (may decrease to every other day if no swelling recurs) Disc: Reason for discontinue is not on file. codeine-guaiFENesin (GUAIFENESIN AC)* 240 * 0 03/15/2017 06/28/2017 Class: Print RX Route: ORAL Sig: Take 5 mL by mouth once daily as needed for up to 90 days. Disc: Reason for discontinue is not on file. oxyCODONE-acetaminophen (PERCOCET) 7* 60 t* 0 05/14/2017 06/28/2017 Class: Print RX Route: ORAL Sig: Take 1 tablet by mouth twice daily as needed for up to 30 days. For severe pain. Earliest Fill Date: 05/14/17 Disc: Reason for discontinue is not on file. Disposition: Return for August appt. Follow-up and Disposition History Recorded Encounter Status:Closed by MOO REAVES MD on 07/11/17 BRENNAN Observed: 06/25/2017 Status: COMPLETED Source: LAJAS 12:00 AM [facility] REPOSITORY Patient Outreach (FAMPWS) KATHERIN MARTIN ([id number]) 1940 F Date Time Provider Department 06/25/17 MENDY VELAZQUEZ During your visit today, we recorded the following information about you: Mendy Chino RN 11/29/2017 7:04 AM Signed TRANSITION CARE MANAGEMENT (TCM) INITIAL CONTACT Provider Action/FYI: Initial contact with patient post discharge, spoke to Katherin. Patient identified by name and . SUMMARY: -Pt discharged from [facility] on 06/22/17. -Follow up appointment on 06/27 w/V. -[facility] -Admitted for: SBO CONCERNS: Pt complaining about a myriad of problems. Feels shouldn't have been increased on Cymbalta... made her out of her mind. Family said she was crawling aroundon floor, incoherent, etc. NEW MEDICATIONS: Oxycodone IR 5mg #12 on D/C MEDS HELD/DISCONTINUED: None BRIEF HOSPITAL COURSE: Patient is a 76-year-old female admitted 05/30/17 due to altered mental status. She has a past medical history of hyperlipidemia, osteoarthritis, hypertension, type 2 diabetes mellitus, depression, anxiety, recent right knee meniscus surgery. 1. Altered mental status, suspected encephalopathy secondary to polypharmacy-patient states she recently had a few deaths in her family and has been having increased anxiety and depression. Her Cymbalta was increased by primary care physician to 60 mg daily and then decreased back to 30mg. Patient is a poor informant regarding her medications. She is also taking Ambien at night to help her sleep as well as Percocet as needed for pain in which she has received multiple recent prescriptions. She is also on Xanax at bedtime which she states she has been on for approximately 15-20 years. Patient states she has not been taking her medications for 1-2 weeks following surgery due to being out of sorts. She states she normally lays out her medication in a pill dispenser and has not been doing that since her recent surgery. She was started on Seroquel. Cymbalta discontinued. Her mental status is now at baseline. Patient also diagnosed with UTI prior to admission, she completed course of nitrofurantoin. UA and urine culture during admission unremarkable. Brain CT shows chronic changes. Chest x-ray shows no acute abnormality. Ambien is not listed on patient's home medication regimen although she states she takes at home. Recommend discontinuing Ambien at discharge. 2. Chest pain-resolved. Suspected secondary to anxiety. Troponin negative. EKG without evidence of ischemia. 3. Physical debility status post recent right meniscal surgery-patient underwent right knee meniscal surgery 05/15/[address] Walker. Patient states she was told that she will need further repair due to incident prior to admission of patient crawling on knees. Continue outpatient follow-up. TCU at discharge. 4. Recent right lower extremity DVT-occurred following recent right meniscal surgery. Continue Xarelto. 5. Paroxysmal atrial fibrillation-currently sinus rhythm. Continue Cardizem and Xarelto. 6. Type 2 diabetes mellitus-continue home oral regimen. 7. Hypertension-stable, continue current regimen. The patient is a 76 year old F presents with abdominal pain. He was just discharged from the transitional care unit on an while she was very patient stated that she was having abdominal pain. Patient was sent home nonetheless. Patient presented to the emergency room and was found to have a small bowel obstruction. NG tube was attempted but unsuccessful given prior nasal bone fractures. General surgery was consulted but patient overall improved. Past couple days patient tolerated clear and then soft diet. Plan is for the patient to be discharged home today. As patient is very discharge from transitional care unit patient had outpatient therapy services established. [] Allergies As of Date: 06/25/2017 Noted Allergy Reaction TORADOL (KETOROLAC TROMETHAMINE) 11/16/2004 7 - Swelling Comments: itching REDUX 11/05/2016 1 - Mental Status Change Comments: nightmares ROZEREM (RAMELTEON) 06/20/2016 5 - Intolerance Comments: [place] paralyzed and gave her nightmares Date Reviewed: 05/29/2017 Reviewed by: Harish ([facility]) Binh - Fully Assessed Reason for Visit: Transition Of Care [3906] Prescriptions as of 06/25/2017 Sig: X ALPRAZOLAM 0.5 MG TABLET TAKE 1 TABLET BY MOUTH TWICE * X SITAGLIPTIN 100 MG TABLET Take 1 tablet by mouth once d* X DULOXETINE 60 MG CAPSULE,MEHRDAD* Take 1 capsule by mouth once * X CANAGLIFLOZIN 300 MG TABLET Take 1 tablet by mouth daily * X OXYCODONE-ACETAMINOPHEN 7.5 M* Take 1 tablet by mouth every * CYANOCOBALAMIN (VIT B-12) 1,0* Inject 1 mL intramuscularly o* FLUTICASONE 50 MCG/ACTUATION * Use 2 Sprays in each nostril * X ZOLPIDEM ER 12.5 MG TABLET,EX* Take 1 tablet by mouth daily * X OXYCODONE-ACETAMINOPHEN 7.5 M* Take 1 tablet by mouth twice * X CODEINE 10 MG-GUAIFENESIN 100* Take 5 mL by mouth once daily* X CHOLECALCIFEROL (VITAMIN D3) * Take 1 capsule by mouth twice* BENZONATATE 100 MG CAPSULE Take 1 capsule by mouth three* Patient not taking: Reported on 09/17/2017 LANCETS Test blood sugar(s) once or t* PRAVASTATIN 20 MG TABLET Take 1 tablet by mouth daily * IRBESARTAN 300 MG TABLET Take 1 tablet by mouth once d* X BUMETANIDE 0.5 MG TABLET Take 1 tablet by mouth once d* X NYSTATIN 100,000 UNIT/GRAM TO* Apply 1 application to affect* BLOOD SUGAR DIAGNOSTIC STRIPS Test blood sugar(s) once or t* X DILTIAZEM XR 240 MG CAP Take 1 capsule by mouth once * ESTERIFIED ESTROGENS-METHYLTE* Take 1 tablet by mouth once d* Patient not taking: Reported on 09/17/2017 ALUMINUM HYDROX-MAGNESIUM CAR* Take 15 mL by mouth every 6 h* Patient not taking: Reported on 09/17/2017 ICOSAPENT ETHYL 1 GRAM CAPSULE Take by mouth. Problem List As Of Date 06/25/2017 Noted Resolved Primary osteoarthritis involving multiple joint*INVALID FOR* More... Obesity [E66.9] INVALID FOR* MYALGIA AND MYOSITIS NOS [[id number]] INVALID FOR* Chronic Pancreatitis [K86.1] INVALID FOR* Osteopenia [M85.80] INVALID FOR* More... Essential hypertension [I10] INVALID FOR* Hypertriglyceridemia [E78.1] INVALID FOR* Diabetes mellitus type II INVALID FOR*10/05/2013 Depression [F32.9] INVALID FOR* Atrial fibrillation [I48.91] INVALID FOR* Vitamin D deficiency [E55.9] INVALID FOR* Anxiety [F41.9] INVALID FOR* Controlled substance agreement signed [Z79.899] INVALID FOR* Diabetes (HCC) [E11.9] INVALID FOR*08/14/2015 Stress and adjustment reaction [F43.29] INVALID FOR* Chronic abdominal pain [R10.9, G89.29] INVALID FOR* ADD (attention deficit disorder) without hypera*INVALID FOR* Hyperparathyroidism , secondary, non-renal (HCC*INVALID FOR* Hyperparathyroidism, primary (HCC) [E21.0] INVALID FOR* Encounter Status:Closed by HILDA BALBUENAUSEDavid on 11/29/17 DISCHARGE INSTRUCTION Observed: 06/22/2017 Status: F Source: JAMIE 2:54 PM [facility] REPOSITORY [facility] Medical Records Department [address] [place] [address] Instructions for Home/Discharge Instructions 06/22/17 1452 MR#: [id number] Acct: [id number] Name: KATHERIN MARTIN Rep #: [id number] : 1940 76 From: Nathaniel Cuellar DO PCP: Moo Reaves MD Status: ADM IN - Discharge Diagnoses Current Active Problems: Current Active and Chronic Problems (Last Updated 04/23/17 @ 09:56 by Armida Neal) SBO (small bowel obstruction) (Acute) You will use the following diet at home:: Cardiac - soft, advance as tolerated Your food should be the consistency of: Mechanical soft (ground) - advance as tolerated Your liquids should be the consistency of: Regular/Thin Discharge Activity: Return to Normal Activity Call your doctor if you observe: Fever of 101 or Higher, Shortness of breath, Chest pain, - - worsening abdominal pain. Allergies/Adverse Reactions: Allergies ramelteon [From Rozerem] Allergy (Verified 06/19/17 12:51) Other bupropion Adverse Reaction (Verified 06/19/17 12:51) Other UNKNOWN bupropion HCl [From Wellbutrin] Adverse Reaction (Verified 06/19/17 12:51) Other UNKNOWN dexfenfluramine HCl [From Redux] Adverse Reaction (Verified 06/19/17 12:51) Unknown hydrochlorothiazide Adverse Reaction (Verified 06/19/17 12:51) Other UNKNOWN ketorolac tromethamine [From Toradol] Adverse Reaction (Verified 06/19/17 12:51) Itching oxaprozin [From Daypro] Adverse Reaction (Verified 06/19/17 12:51) Other UNKNOWN Medications to take at Discharge ALPRAZolam [Xanax] 0.5 mg PO QHS 12/11/13 Diltiazem CD [Cardizem CD] 240 mg PO DAILY 12/11/13 Sitagliptin Phosphate [Januvia] 100 mg PO DAILY 05/30/17 Acetaminophen [Tylenol] 1,000 mg PO Q8H PRN PRN tablet 06/12/17 Empagliflozin [Jardiance] 25 mg PO DAILY #30 tab 06/12/17 Menthol/Lanolin/Calamine/Znox [Calmoseptine Ointment] 1 applic TOPICAL 0600,2200 tube 06/12/17 Ondansetron [Zofran Odt] 4 mg PO Q6H PRN PRN #30 tab 06/12/17 Rivaroxaban [Xarelto] 20 mg PO DAILY@0600 #30 tab 06/12/17 Oxycodone [Oxyir] 5 - 10 mg PO Q4H PRN PRN 3 Days #12 tablet 06/22/17 The following prescriptions were given: Oxycodone [Oxyir] 5 - 10 mg PO Q4H PRN PRN 3 Days #12 tablet PRN Reason: Severe Pain () Primary Care Physician: Moo Reaves MD [Primary Care Provider] - Within 2 Weeks Proposed Discharge Date: 06/22/17 06/22/17 1454 <Electronically signed by Nathaniel Cuellar DO> Date Nathaniel Cuellar DO CC: Moo Reaves MD; Betito Ibarra MD BEDSIDE GLUCOSE Collected: 06/22/2017 Status: F Source: JAMIE 12:19 PM [facility] REPOSITORY TYPE CODE TESTS RESULT OUT OF REFERENCE UNITS RANGE LAB L501.080 70-110 mg/dL High BEDSIDE GLU 163 Result Comment: MANAGEMENT OF PATIENT CARE PER NURSING PROTOCOL Performed By: #### L501.080 #### [facility] Point of Care [address] [place], [place] [id number] BEDSIDE GLUCOSE Collected: 06/22/2017 Status: F Source: JAMIE 6:38 AM [facility] REPOSITORY TYPE CODE TESTS RESULT OUT OF RANGE REFERENCE UNITS LAB L501.080 70-110 mg/dL Normal BEDSIDE GLU 100 Result Comment: MANAGEMENT OF PATIENT CARE PER NURSING PROTOCOL Performed By: #### L501.080 #### [facility] Point of Care [address] [place], [place] [address] BASIC METABOLIC Collected: 06/22/2017 Status: F Source: JAMIE PROFILE (BMP) 6:02 AM [facility] REPOSITORY Order Comment: SPECIMEN OBTAINED FROM LINE DRAW TYPE CODE TESTS RESULT OUT OF RANGE REFERENCE UNITS LAB L501.0100 74-106 mg/dL Normal GLU 95 Result Comment: Please note revised GLUCOSE reference range effective 2017. LAB L501.1000 7-18 mg/dL Normal BUN 10 LAB L501.1100 0.55-1.02 mg/dL Low CREAT,SERUM 0.34 Result Comment: The validity of the calculated GFR AND GFRAA in patients over 70 years has not been determined. Clinical correlation is essential. LAB L501.1110 >60 mL/min Normal EST GFR 202 Result Comment: Non- GFR Calc LAB L501.1115 >60 mL/min Normal EST GFR - AA 244 Result Comment: GFR Calc LAB L501.1255 ml/min Normal Estimated CRCL 40.21 LAB L501.1300 10-20 RATIO High BUN/CRE 29.8 LAB L501.2200 8.5-10 mg/dL Normal .1 CA 8.9 LAB L501.5300 136-14 mmol/L Normal 5 NA 143 LAB L501.5600 3.5-5. mmol/L Low 1 K 3.4 LAB L501.5900 98-107 mmol/L High CL 109 LAB L501.6100 21.0-3 mmol/L Normal 2.0 CO2 28.0 LAB L501.6200 5-15 Normal GAP 6 Performed By: #### L500.2500, L501.5200 #### [facility] [address] [place], [address] MAGNESIUM Collected: 06/22/2017 Status: F Source: JAMIE 6:02 AM [facility] REPOSITORY Order Comment: SPECIMEN OBTAINED FROM LINE DRAW TYPE CODE TESTS RESULT OUT OF RANGE REFERENCE UNITS LAB L501.5200 1.6-2.6 mg/dL Normal MG 1.8 Performed By: #### L500.2500, L501.5200 #### [facility] [address] [place], [address] BEDSIDE GLUCOSE Collected: 06/21/2017 Status: F Source: JAMIE 5:23 PM [facility] REPOSITORY TYPE CODE TESTS RESULT OUT OF REFERENCE UNITS RANGE LAB L501.080 70-110 mg/dL High BEDSIDE GLU 155 Result Comment: MANAGEMENT OF PATIENT CARE PER NURSING PROTOCOL Performed By: #### L501.080 #### [facility] Point of Care [address] [place] [address] BEDSIDE GLUCOSE Collected: 06/21/2017 Status: F Source: DRUMMOND 11:33 AM [facility] REPOSITORY TYPE CODE TESTS RESULT OUT OF RANGE REFERENCE UNITS LAB L501.080 70-110 mg/dL Normal BEDSIDE GLU 89 Result Comment: MANAGEMENT OF PATIENT CARE PER NURSING PROTOCOL Performed By: #### L501.080 #### [facility] Point of Care [address] [facility] [address] CBC W/DIFF, AUTOMATED Collected: 06/21/2017 Status: F Source: JAMIE 5:52 AM [facility] REPOSITORY Order Comment: SPECIMEN OBTAINED FROM LINE DRAW TYPE CODE TESTS RESULT OUT OF RANGE REFERENCE UNITS LAB L100.1000 4.4-11.0 K/mm3 High WBC 11.5 LAB L100.1200 4.2-5.4 M/mm3 Normal RBC 4.68 LAB L100.1300 12.0-15.0 g/dl Normal HGB 14.1 LAB L100.1400 37-47 % Normal HCT 43.8 LAB L100.1500 81-99 fL Normal MCV 93.6 LAB L100.1600 27.0-32.0 pg Normal MCH 30.1 LAB L100.1700 32-36 g/gl Normal MCHC 32.2 LAB L100.1810 11.6-14.6 % Normal RDW CV 14.1 LAB L100.1820 35.1-43.9 fl High RDW SD 48.3 LAB L100.1900 150-450 K/mm3 Normal PLT 196 LAB L100.2000 6.2-12.0 fl Normal MPV 10.0 LAB L100.2100 47-70 % High NEUT% 74.0 LAB L100.2200 19-41 % Low LY% 17.5 LAB L100.2300 0-10 % Normal MONO% 8.0 LAB L100.2400 0-5 % Normal EO% 0.1 LAB L100.2500 0-1 % Normal BASO% 0.2 LAB L100.2550 0.0-0.9 % Normal IM GRAN % 0.200 Result Comment: IG% - Immature Granulocytes (promyelocytes, myelocytes and metamyelocytes) > 1% indicates that a LEFT SHIFT is Present. LAB L100.2620 2.0-7.7 X10 3/uL High Absolute Neut 8.5 LAB L100.2720 0.83-4.51 X10 3/ul Normal Absolute Lymph 2.01 Performed By: #### L100.0100 #### [facility] [address] [place], [address] BASIC METABOLIC Collected: 06/21/2017 Status: F Source: DRUM[place]D PROFILE ([facility]) 5:52 AM [facility] REPOSITORY Order Comment: SPECIMEN OBTAINED FROM LINE DRAW TYPE CODE TESTS RESULT OUT OF RANGE REFERENCE UNITS LAB L501.0100 74-106 mg/dL High GLU 120 Result Comment: Fasting Glucose result from 100 to 125 mg/dL suggests IMPAIRED HOMEOSTASIS per A.D.A. criteria. Please note revised GLUCOSE reference range effective 2017. LAB L501.1000 7-18 mg/dL Normal BUN 16 LAB L501.1100 0.55-1.02 mg/dL Low CREAT,SERUM 0.48 Result Comment: The validity of the calculated GFR AND GFRAA in patients over 70 years has not been determined. Clinical correlation is essential. LAB L501.1110 >60 mL/min Normal EST GFR 135 Result Comment: Non- GFR Calc LAB L501.1115 >60 mL/min Normal EST GFR - AA 164 Result Comment: GFR Calc LAB L501.1255 ml/min Normal Estimated CRCL 40.21 LAB L501.1300 10-20 RATIO High BUN/CRE 33.7 LAB L501.2200 8.5-10 mg/dL Normal .1 CA 9.1 LAB L501.5300 136-14 mmol/L Normal 5 NA 142 LAB L501.5600 3.5-5. mmol/L Low 1 K 3.3 LAB L501.5900 98-107 mmol/L Normal CL 106 LAB L501.6100 21.0-3 mmol/L Normal 2.0 CO2 28.0 LAB L501.6200 5-15 Normal GAP 8 Performed By: #### L500.2500 #### [facility] [address] [place], [address] MAGNESIUM Collected: 06/21/2017 Status: F Source: [place] 5:52 AM [facility] REPOSITORY TYPE CODE TESTS RESULT OUT OF RANGE REFERENCE UNITS LAB L501.5200 1.6-2.6 mg/dL Normal MG 2.0 Performed By: #### L501.5200 #### [facility] [address] [place], [address] BEDSIDE GLUCOSE Collected: 06/21/2017 Status: F Source: [place] 5:25 AM [facility] REPOSITORY TYPE CODE TESTS RESULT OUT OF REFERENCE UNITS RANGE LAB L501.080 70-110 mg/dL High BEDSIDE GLU 112 Result Comment: MANAGEMENT OF PATIENT CARE PER NURSING PROTOCOL Performed By: #### L501.080 #### [facility] Point of Care [address] [place] [address] ABD INC DECUB Observed: 06/21/2017 Status: F Source: JAMIE AND/OR ERECT 12:00 AM [facility] REPOSITORY [facility] Imaging Services [address] [place] [address] Abd Inc Decub and/or Erect MR#: [id number] Acct: [id number] Name: KATHERIN MARTIN Rep #: [id number] : 1940 F 76 From: Aiden Luna MD PCP: Moo Reaves MD Status: ADM IN Study: Abd Inc Decub and/or Erect Date of Exam: 06/21/17 Exam# [id number] Ordering Dr: Betito Ibarra MD STUDY: X-RAY - ABDOMEN/PELVIS REASON FOR EXAM: Female, 76 years old. Small bowel obstruction TECHNIQUE: AP supine and upright views of the abdomen and pelvis. COMPARISON: 06/20/2017 FINDINGS: Normal visualized lung bases. Dilated small bowel loops on the left measuring up to 3.4 cm in diameter. This has improved compared to previous study. Air-fluid levels on the upright view. Right upper quadrant clips. There is no demonstrated free abdominal air. The visualized liver, spleen and kidneys are grossly normal in size and morphology. Normal soft tissue structures. There are diffuse degenerative changes of the visualized lumbar spine. RAD/Abd Inc Decub and/or Erect IMPRESSION: Dilated small bowel loops on the left measuring up to 3.4 cm in diameter. This has improved compared to previous study. Electronically Signed: Aiden Luna MD at 6:24 EDT Tel , Service support , CC: Moo Reaves MD; Betito Ibarra MD Automation Controls Specialist: Signed BEDSIDE GLUCOSE Collected: 06/20/2017 Status: F Source: [place] 5:32 PM [facility] REPOSITORY TYPE CODE TESTS RESULT OUT OF REFERENCE UNITS RANGE LAB L501.080 70-110 mg/dL High BEDSIDE GLU 161 Result Comment: MANAGEMENT OF PATIENT CARE PER NURSING PROTOCOL Performed By: #### L501.080 #### [facility] Point of Care [address] [place] [address] BEDSIDE GLUCOSE Collected: 06/20/2017 Status: F Source: [place]AM[place] 1:13 PM [facility] REPOSITORY TYPE CODE TESTS RESULT OUT OF REFERENCE UNITS RANGE LAB L501.080 70-110 mg/dL High BEDSIDE GLU 154 Result Comment: MANAGEMENT OF PATIENT CARE PER NURSING PROTOCOL Performed By: #### L501.080 #### [facility] Point of Care [address] [place] [address] CBC W/DIFF, AUTOMATED Collected: 06/20/2017 Status: F Source: JAMIE 12:45 PM [facility] REPOSITORY Order Comment: NURSING STAFF WILL ATTEMPT TO OBTAIN WITH IV START PER BRENDA SPOKE WITH AJ TONY RN AND THEY ARE GETTING PICC LINE SENT LABELS AND TUBES UP TO FLOOR WILL TRY AND OBTAIN THROUGH PICC. TYPE CODE TESTS RESULT OUT OF RANGE REFERENCE UNITS LAB L100.1000 4.4-11.0 K/mm3 High WBC 12.2 LAB L100.1200 4.2-5.4 M/mm3 Normal RBC 5.02 LAB L100.1300 12.0-15.0 g/dl High HGB 15.3 LAB L100.1400 37-47 % Normal HCT 46.4 LAB L100.1500 81-99 fL Normal MCV 92.4 LAB L100.1600 27.0-32.0 pg Normal MCH 30.5 LAB L100.1700 32-36 g/gl Normal MCHC 33.0 LAB L100.1810 11.6-14.6 % Normal RDW CV 14.2 LAB L100.1820 35.1-43.9 fl High RDW SD 47.9 LAB L100.1900 150-450 K/mm3 Normal PLT 191 LAB L100.2000 6.2-12.0 fl Normal MPV 9.8 LAB L100.2100 47-70 % High NEUT% 79.2 LAB L100.2200 19-41 % Low LY% 13.8 LAB L100.2300 0-10 % Normal MONO% 6.3 LAB L100.2400 0-5 % Normal EO% 0.0 LAB L100.2500 0-1 % Normal BASO% 0.1 LAB L100.2550 0.0-0.9 % Normal IM GRAN % 0.600 Result Comment: IG% - Immature Granulocytes (promyelocytes, myelocytes and metamyelocytes) > 1% indicates that a LEFT SHIFT is Present. LAB L100.2620 2.0-7.7 X10 3/uL High Absolute Neut 9.7 LAB L100.2720 0.83-4.51 X10 3/ul Normal Absolute Lymph 1.69 Performed By: #### L100.0100 #### [facility] [address] [place], [address] BASIC METABOLIC Collected: 06/20/2017 Status: F Source: [place]AMIE PROFILE (BMP) 12:45 PM [facility] REPOSITORY Order Comment: NURSING STAFF WILL ATTEMPT TO OBTAIN WITH IV START PER BRENDA SPOKE WITH AJ TONY RN AND THEY ARE GETTING PICC LINE SENT LABELS AND TUBES UP TO FLOOR WILL TRY AND OBTAIN THROUGH PICC. TYPE CODE TESTS RESULT OUT OF RANGE REFERENCE UNITS LAB L501.0100 74-106 mg/dL High GLU 148 Result Comment: Fasting Glucose result greater than or equal to 126 mg/dL suggests DIABETES MELLITUS per A.D.A. criteria. Please note revised GLUCOSE reference range effective 2017. LAB L501.1000 7-18 mg/dL Normal BUN 13 LAB L501.1100 0.55-1.02 mg/dL Normal CREAT,SERUM 0.55 Result Comment: The validity of the calculated GFR AND GFRAA in patients over 70 years has not been determined. Clinical correlation is essential. LAB L501.1110 >60 mL/min Normal EST GFR 114 Result Comment: Non- GFR Calc LAB L501.1115 >60 mL/min Normal EST GFR - AA 138 Result Comment: GFR Calc LAB L501.1255 ml/min Normal Estimated CRCL 40.21 LAB L501.1300 10-20 RATIO High BUN/CRE 23.6 LAB L501.2200 8.5-10 mg/dL Normal .1 CA 10.0 LAB L501.5300 136-14 mmol/L Normal 5 NA 142 LAB L501.5600 3.5-5. mmol/L Normal 1 K 3.6 LAB L501.5900 98-107 mmol/L Normal CL 103 LAB L501.6100 21.0-3 mmol/L Normal 2.0 CO2 29.0 LAB L501.6200 5-15 Normal GAP 10 Performed By: #### L500.2500 #### [facility] [address] [place], [place], [address] BEDSIDE GLUCOSE Collected: 06/20/2017 Status: F Source: [place] 6:22 AM [facility] REPOSITORY TYPE CODE TESTS RESULT OUT OF REFERENCE UNITS RANGE LAB L501.080 70-110 mg/dL High BEDSIDE GLU 173 Result Comment: MANAGEMENT OF PATIENT CARE PER NURSING PROTOCOL Performed By: #### L501.080 #### [facility] Point of Care [address] [place], [place] [address] ABD INC DECUB Observed: 06/20/2017 Status: F Source: JAMIE AND/OR ERECT 12:00 AM [facility] REPOSITORY [facility] Imaging Services [address] [place] [address] Abd Inc Decub and/or Erect MR#: [id number] Acct: [id number] Name: KATHERIN MARTIN Rep #: [id number] : 1940 F 76 From: Aiden Luna MD PCP: Moo Reaves MD Status: ADM IN Study: Abd Inc Decub and/or Erect Date of Exam: 06/20/17 Exam# [id number] Ordering Dr: Betito Ibarra MD STUDY: X-RAY - ABDOMEN/PELVIS REASON FOR EXAM: Female, 76 years old. Small bowel obstruction TECHNIQUE: AP supine and upright views of the abdomen and pelvis. COMPARISON: CT June 19, 2017 FINDINGS: Normal visualized lung bases. Dilated small bowel loops on the left measuring up to 5.7 cm. Acute air-fluid levels on the upright view. Constipation is suggested involving the proximal colon. Residual contrast in the bladder. There is no demonstrated free abdominal air. The visualized liver, spleen and kidneys are grossly normal in size and morphology. Normal soft tissue structures. There are diffuse degenerative changes of the visualized lumbar spine. RAD/Abd Inc Decub and/or Erect IMPRESSION: Obstructive bowel gas pattern. Electronically Signed: Aiden Luna MD at 5:17 EDT Tel , Service support , CC: Moo Reaves MD; Betito Ibarra MD Automation Controls Specialist: Signed CONSULTATION Observed: 06/19/2017 Status: F Source: [place] 7:47 PM [facility] REPOSITORY [facility] Medical Records Department [address] [place] [address] Consultation 06/19/171939 MR#: [id number] Acct: [id number] Name: KATHERIN MARTIN Rep #: [id number] : 1940 76 From: Betito Ibarra MD PCP: Moo Reaves MD Status: ADM IN Y Location: [facility] [id number] Reason for Consult Date of Consultation: 06/19/17 History of Present Illness: The patient is a 76 year old F recently underwent knee arthroscopy for meniscal tear and developed a DVT following that procedure. She was started on Xarelto. The patient was then started on Cymbalta. Her Cymbalta dose was increased and the patient became increasingly confused. She was recently admitted to [facility] then changed to the transitional care unit. While at the TCU, the patient noted abdominal distention and discomfort. She states her last bowel movement was approximately 4 days previously. She is not feeling. She is passing flatus recently. She was admitted to medical service with diagnosis of partial small bowel obstruction. CT scan of the abdomen and pelvis was obtained. This demonstrated distention at the level of her Concepción-en-Y anastomosis and signs of a distal partial bowel obstruction. The patient was moved to the floor. She states her pain medication is not of sufficient duration to take care of her abdominal cramping symptoms. She also feels that she is nauseated. She vomited one time. An attempt to place a nasogastric tube are reasonable nostril failed. I had seen the patient back in August 2016 when she presented with obstructive symptoms and abdominal pain. At that time she had tried to increase her vegetable intake and actually had very significant dilation of the same portion of her Concepción-en-Y anastomosis. At this time, there was a significant bezoar in that area. Over days with some oral agents. This was able to break up and pass. The patient had an outpatient upper GI small bowel follow-through, which was described as no signs of obstruction or abnormality at the anastomoses. The patient has a complex past medical history. She understands she had a Whipple procedure performed in [place]-this is not accurate. The patient has a prior history of a cholecystectomy performed at age 19 in [place] by Brendan Snell. the patient then had recurring issues of abdominal pain. She had diverticulosis without diverticulitis. She had had prior to presentation in [place] a previous history of a total abdominal hysterectomy with bilateral salpingo-oophorectomy, previous tubal ligation, previous bladder suspension. In early 2006, she presented to an outside hospital in [place] with complaints of epigastric abdominal pain. She was felt at that time to have pancreatitis. She underwent study which apparently failed to demonstrate choledocholithiasis. She had an ERCP performed at that time and was noted to have a dilated common bile duct of an unknown etiology. The patient then returned again with was felt to be acute pancreatitis and elevated liver enzymes clinically she was felt to have cholangitis at the time of admission. There was concern over the possibility due to pancreatic head abnormalities and common duct dilatation listed as upwards of 2 cm in diameter of the pancreatic head mass. The patient was scheduled for a possible Whipple procedure. At the time of surgery, a biopsy was performed of the pancreas which demonstrated chronic scarring but no signs of malignancy. The patient had a common duct stone which was removed and sent to pathology. It was apparently 5 mm in size. At this point, the operating surgeon elected to perform a Concepción-en-Y choledochojejunostomy to bypass the obstruction and the head of the pancreas. This surgical procedure was performed on June 12, 2006. The patient has since undergone a low anterior resection performed by Dr. Garcia in 2013 for diverticulitis. Past Medical History Past Medical History (Chronic Problems): Chronic Problems (Last Updated 04/23/17 @ 09:56 by Armida Neal) Diabetes mellitus (Chronic) Anxiety (Chronic) Edema (Chronic) Right knee meniscus surgery (Chronic) Afib (Chronic) SBO (small bowel obstruction) (Chronic) Hyperlipidemia (Chronic) Osteoarthritis (Chronic) Hypertension (Chronic) Type 2 diabetes mellitus (Chronic) Allergies ramelteon [From Rozerem] Allergy (Verified 06/19/17 12:51) Other bupropion Adverse Reaction (Verified 06/19/17 12:51) Other UNKNOWN bupropion HCl [From Wellbutrin] Adverse Reaction (Verified 06/19/17 12:51) Other UNKNOWN dexfenfluramine HCl [From Redux] Adverse Reaction (Verified 06/19/17 12:51) Unknown hydrochlorothiazide Adverse Reaction (Verified 06/19/17 12:51) Other UNKNOWN ketorolac tromethamine [From Toradol] Adverse Reaction (Verified 06/19/17 12:51) Itching oxaprozin [From Daypro] Adverse Reaction (Verified 06/19/17 12:51) Other UNKNOWN Home Medications: Ambulatory Orders Medication Instructions Recorded ALPRAZolam [Xanax] 0.5 mg PO QHS 12/11/13 Diltiazem CD [Cardizem CD] 240 mg PO DAILY 12/11/13 Surgical History: arthroscopy, knee - Right knee meniscal repair, cholecystectomy, - - 2014 had bowel resection, also had whipple procedure in [place] 2007- , tubal ligation, carpal tunnel in wrist, shoulder and hand surgery hysterectemy, bladder suspension, wall between vagina and colon. 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 Denies: Chills, Fever, Weight Change HEENT: Denies: Head Aches, Sinus Congestion, Sinus Drainage Cardiovascular: Denies: Chest Pain, Palpitations Respiratory: Denies: Cough, Shortness of breath at rest, Sputum production Gastrointestinal: Reports: Abdominal Pain, Nausea, Vomiting Genitourinary: Denies: Dysuria Musculoskeletal: Denies: Joint Pain, Joint Tenderness Skin: Denies: Rash, Wounds Neurological: Denies: Numbness, Tingling, Focal weakness Psychiatric: Denies: Anxiety, Depression, Homicidal Ideations, Suicidal Ideations Hematologic/ Lymphatic: Denies: Easy Bruising, Easy Bleeding Patient Problems: Active and Suspected Problems (Last Updated 04/23/17 @ 09:56 by Armida Neal) SBO (small bowel obstruction) (Acute) - Physical Exam General: Alert, Oriented x3, Cooperative, - - in the colicky discomfort Lungs: Clear to auscultation, Normal air movement Cardiovascular: Regular rate, Regular Rhythm Abdomen: Bowel Sounds Present, Soft, - - mildly distended and tender in the left lower quadrant without diffuse peritoneal signs Vital Signs Temp Pulse Resp BP Pulse Ox 98.1 F 90 20 H 176/78 H 100 06/19/17 18:17 06/19/17 18:17 06/19/17 18:17 06/19/17 18:17 06/19/17 18:17 Oxygen Flow Rate (L/min) 2 Oxygen Delivery Method Room Air Weight: 102.5 kg Body Mass Index (BMI) 40.0 Assessment/Plan Active and Suspected Problems (Last Updated 04/23/17 @ 09:56 by Armida Neal) SBO (small bowel obstruction) (Acute) recurrent partial small bowel obstruction, obstruction seems to be centered around her Concepción-en-Y anastomosis area, recent DVT on Xarelto. I plan to hold his Xarelto and restart Lovenox injections tomorrow. we will add Compazine increased frequency of her fentanyl injections as the patient states the fundal is helping her pain, but is of too shorter duration. for now, we'll not plan to replace her nasogastric tube. We'll maintain her in nothing by mouth status with IV hydration. We'll follow her exam clinically and with laboratory studies and will obtain an abdominal multiview in the morning. 06/19/171946 <Electronically signed by Betito Ibarra MD> Date Bettio Ibarra MD Cosigner Signature (if applicable): Date CC: Moo Reaves MD; Betito Ibarra MD Signed HISTORY AND PHYSICAL Observed: 06/19/2017 Status: F Source: [place] EXAM 5:33 PM [facility] REPOSITORY [facility] Medical Records Department [address] [place] [id number] History and Physical 06/19/17 1723 MR#: [id number] Acct: [id number] Name: KATHERIN MARTIN Rep #: [id number] : 1940 76 From: Nathaniel Cuellar DO PCP: Moo Reaves MD Status: REG ER Y Location: ED Problem List (1) SBO (small bowel obstruction) Status: Acute (2) Diabetes mellitus Status: Chronic (3) Anxiety Status: Chronic (4) Right leg DVT Status: Acute (5) Right knee meniscus surgery Status: Chronic (6) Afib Status: Chronic (7) Hyperlipidemia Status: Chronic (8) Osteoarthritis Status: Chronic (9) Hypertension Status: Chronic (10) Type 2 diabetes mellitus Status: Chronic History of Present Illness Date of Admission: 06/19/17 Chief Complaint: abdominal pain The patient is a 76 year old F who has been in the transitional care unit. Over the past 4 days, patient has been having some nausea but today, she is still on the transitional care unit, was having worsening abdominal pain associated with vomiting. Patient was discharged from the transitional care unit. Patient went home and was just feeling awful and presented back to the emergency room. They performed a CT scan of her abdomen that showed a small bowel obstruction. Patient received pain medication and then they called the hospitalist service to admit. No nasogastric tube was placed. Patient states that the pain is more right-sided, which is different than previous obstructions that she has had but overall feels similar to her prior history of bowel obstructions. [] Past Medical History Past Medical History (Chronic Problems): Chronic Problems (Last Updated 04/23/17 @ 09:56 by Armida Neal) Diabetes mellitus (Chronic) Anxiety (Chronic) Edema (Chronic) Right knee meniscus surgery (Chronic) Afib (Chronic) SBO (small bowel obstruction) (Chronic) Hyperlipidemia (Chronic) Osteoarthritis (Chronic) Hypertension (Chronic) Type 2 diabetes mellitus (Chronic) Allergies ramelteon [From Rozerem] Allergy (Verified 06/19/17 12:51) Other bupropion Adverse Reaction (Verified 06/19/17 12:51) Other UNKNOWN bupropion HCl [From Wellbutrin] Adverse Reaction (Verified 06/19/17 12:51) Other UNKNOWN dexfenfluramine HCl [From Redux] Adverse Reaction (Verified 06/19/17 12:51) Unknown hydrochlorothiazide Adverse Reaction (Verified 06/19/17 12:51) Other UNKNOWN ketorolac tromethamine [From Toradol] Adverse Reaction (Verified 06/19/17 12:51) Itching oxaprozin [From Daypro] Adverse Reaction (Verified 06/19/17 12:51) Other UNKNOWN Home Medications: Ambulatory Orders Medication Instructions Recorded ALPRAZolam [Xanax] 0.5 mg PO QHS 12/11/13 Diltiazem CD [Cardizem CD] 240 mg PO DAILY 12/11/13 Surgical History: arthroscopy, knee - Right knee meniscal repair, cholecystectomy, - - 2014 had bowel resection, also had whipple procedure in [place] 2007- , tubal ligation, carpal tunnel in wrist, shoulder and hand surgery hysterectemy, bladder suspension, wall between vagina and colon. 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 Denies: Anorexia, Fever Eyes: Denies: Blurred vision, Double vision HEENT: Denies: Head Aches, Sinus Congestion, Sinus Drainage Cardiovascular: Denies: Chest Pain, Palpitations Respiratory: Denies: Cough, Shortness of breath at rest, Sputum production Gastrointestinal: Reports: Abdominal Pain, Diarrhea, Nausea, Vomiting Genitourinary: Denies: Dysuria Musculoskeletal: Denies: Joint Pain, Joint Tenderness Skin: Denies: Rash, Wounds Neurological: Denies: Numbness, Tingling, Focal weakness Hematologic/ Lymphatic: Reports: Hx of blood clot. Denies: Easy Bruising, Easy Bleeding VTE Information - Inpt Only VTE Present on Admission: Yes Patient Problems: Active and Suspected Problems (Last Updated 04/23/17 @ 09:56 by Armida Neal) SBO (small bowel obstruction) (Acute) - Physical Exam General: Alert, - - Uncomfortable. Afebrile. HEENT: Atraumatic, Normocephalic Neck: No Nodes, Thyroid Normal Size and Texture Lungs: Clear to auscultation, Normal air movement, No rhonchi, No wheeze Cardiovascular: Regular rate, Regular Rhythm, Normal S1, Normal S2, No murmurs Abdomen: Hypoactive Bowel Sounds, Distended, Tender Extremities: No edema, No Calf Tenderness Skin: No rashes, No breakdown Psych/Mental Status: Anxious Vital Signs Temp Pulse Resp BP Pulse Ox 36.6 C 89 18 155/84 H 96 06/19/17 12:48 06/19/17 16:33 06/19/17 16:33 06/19/17 16:33 06/19/17 16:33 Oxygen Delivery Method Room Air Weight: 99.337 kg Body Mass Index (BMI) 38.7 Finger Stick Blood Glucose 173 Laboratory Tests Past 24 Hrs Assessment/Plan Active and Suspected Problems (Last Updated 04/23/17 @ 09:56 by Armida Neal) SBO (small bowel obstruction) (Acute) 1. Small bowel obstruction * Plan right now is conservative management with pain control, antiemetics, IV fluids. Will consult Dr. Joyce, of general surgery, to evaluate. When patient was evaluated for a small bowel obstruction in August 2016 tentative plan at that time, was if the patient failed to progress or worsens to possibly transfer to a tertiary facility given her complex surgical history. Hopefully conservative management will be sufficient for her. * Nasogastric tube has been requested by myself and they will need to be followed up with an x-ray to ensure proper placement and then we will initiate low intermittent suction. 2. Venous thromboembolic disease * Continue with Xarelto 3. Diabetes mellitus type 2 * Patient be n.p.o. so I am going to be holding her oral hypoglycemic agents. * Check Handy blood sugars every 6 hours and patient will be on 4. A. fib * Patient will continue to have her diltiazem and Xarelto ordered but the patient is unable to tolerate those even with clamp the NG and may need to consider utilizing Lovenox or IV diltiazem. 5. DVT prophylaxis: Patient does have history of embolic disease and is already on anticoagulation with Xarelto. Code Visit Inpatient E AND M: [id number] Init Hosp L2 06/19/17 1733 <Electronically signed by Nathaniel Cuellar DO> Date Nathaniel Cuellar DO Cosigner Signature: Date (if applicable) CC: Nathaniel Cuellar DO; Moo Reaves MD Signed EMERGENCY DEPARTMENT Observed: 06/19/2017 Status: F Source: [place] SUMMARY 4:27 PM [facility] REPOSITORY [facility] Medical Records Department [address] [place] [address] Emergency Department Summary 06/19/17 1624 MR#: [id number] Acct: [id number] Name: KATHERIN MARTIN Rep #: [id number] : 1940 76 From: Ju Knox DO PCP: Moo Reaves MD Status: REG ER - ER Visit Summary Date of Service: 06/19/17 Chief Complaint: [Abdominal pain] History of Present Illness: The patient is a 76 F [presents to the emergency department with abdominal discomfort started 3 days ago. Patient was in TCU until about an hour and a half ago when she was discharged but decided that she needed to be seen for her abdominal pain. Patient's last bowel movement was 3 days ago. Patient's had nausea but no vomiting. Patient states she has had similar pain in the past when she had a bowel obstruction. Patient has history of cholecystectomy and partial colectomy. Patient denies any fevers. Patient currently being treated for urinary tract infection. Physical Examination: [HEENT-PERRLA, EOMI. Cranial nerves II through XII grossly intact. TMs clear. Mucous membranes moist. No adenopathy. Cardiovascular-regular rate and rhythm without murmur or ectopy Lungs-clear to auscultation, chest wall stable without crepitus or subcu emphysema Abdomen-normoactive bowel sounds, soft patient has diffuse tenderness palpation. There is no rebound, rigidity, or perineal signs. Extremities-intact 4, normal range of motion, normal pulses, atraumatic] Test Results: [CBC with differential obtained showed a white count of 8.6, hemoglobin 16, hematocrit 49, platelets 178. Chemistries unremarkable. Lipase was normal at 51. Lactate was normal at 1.7. CT scan of the abdomen pelvis showed early small bowel obstruction versus localized ileus.] Emergency Department Course and Treatment: Admit for pain control, fluids and further evaluation. [] Treatment Plan: [Admit] Disposition: Admit] Impression: [Small bowel obstruction Abdominal pain] This note was generated with [employer] dictation software. It may contain incorrect words, spelling, and punctuation that were not noted in review of the chart prior to signing ED Disposition - Plan for ED Patient: Chief Complaint: Abd Pain Referrals: Moo Reaves MD [Primary Care Provider] - What to do if you have Problems For any increased pain, shortness of breath, bleeding, nausea or vomiting, chest pain, or any unexpected problems, contact your Primary Care Provider. Call [facility] ([phone]) or report to the closest Emergency Room. Call 911 if necessary. 06/19/17 9578 <Electronically signed by Ju Knox DO> Date Ju Knox DO Cosigner Signature (If Indicated): Date CC: Moo Reaves MD CBC W/DIFF, AUTOMATED Collected: 06/19/2017 Status: F Source: JAMIE 2:00 PM [facility] REPOSITORY TYPE CODE TESTS RESULT OUT OF RANGE REFERENCE UNITS LAB L100.1000 4.4-11.0 K/mm3 Normal WBC 8.6 LAB L100.1200 4.2-5.4 M/mm3 Normal RBC 5.31 LAB L100.1300 12.0-15.0 g/dl High HGB 16.3 LAB L100.1400 37-47 % High HCT 48.9 LAB L100.1500 81-99 fL Normal MCV 92.1 LAB L100.1600 27.0-32.0 pg Normal MCH 30.7 LAB L100.1700 32-36 g/gl Normal MCHC 33.3 LAB L100.1810 11.6-14.6 % Normal RDW CV 14.3 LAB L100.1820 35.1-43.9 fl High RDW SD 47.4 LAB L100.1900 150-450 K/mm3 Normal PLT 178 LAB L100.2000 6.2-12.0 fl Normal MPV 10.3 LAB L100.2100 47-70 % High NEUT% 70.3 LAB L100.2200 19-41 % Normal LY% 21.6 LAB L100.2300 0-10 % Normal MONO% 6.5 LAB L100.2400 0-5 % Normal EO% 0.5 LAB L100.2500 0-1 % Normal BASO% 0.3 LAB L100.2550 0.0-0.9 % Normal IM GRAN % 0.800 Result Comment: IG% - Immature Granulocytes (promyelocytes, myelocytes and metamyelocytes) > 1% indicates that a LEFT SHIFT is Present. LAB L100.2620 2.0-7.7 X10 3/uL Normal Absolute Neut 6.1 LAB L100.2720 0.83-4.51 X10 3/ul Normal Absolute Lymph 1.86 Performed By: #### L100.0100, L500.2500, L501.2450 #### [facility] [address] [place], [address] BASIC METABOLIC Collected: 06/19/2017 Status: F Source: [place] PROFILE (BMP) 2:00 PM [facility] REPOSITORY TYPE CODE TESTS RESULT OUT OF RANGE REFERENCE UNITS LAB L501.0100 74-106 mg/dL High GLU 151 Result Comment: Fasting Glucose result greater than or equal to 126 mg/dL suggests DIABETES MELLITUS per A.D.A. criteria. Please note revised GLUCOSE reference range effective 2017. LAB L501.1000 7-18 mg/dL Normal BUN 13 LAB L501.1100 0.55-1.02 mg/dL Normal CREAT,SERUM 0.70 Result Comment: The validity of the calculated GFR AND GFRAA in patients over 70 years has not been determined. Clinical correlation is essential. LAB L501.1110 >60 mL/min Normal EST GFR 87 Result Comment: Non- GFR Calc LAB L501.1115 >60 mL/min Normal EST GFR - AA 105 Result Comment: GFR Calc LAB L501.1255 ml/min Normal Estimated CRCL 40.21 LAB L501.1300 10-20 RATIO Normal BUN/CRE 18.6 LAB L501.2200 8.5-10 mg/dL High .1 CA 10.9 LAB L501.5300 136-14 mmol/L Normal 5 NA 138 LAB L501.5600 3.5-5. mmol/L Normal 1 K 4.0 Result Comment: Moderate Hemolysis, Result may be falsely increased. LAB L501.5900 98-107 mmol/L Normal CL 101 LAB L501.6100 21.0-32.0 mmol/L Normal CO2 30.0 LAB L501.6200 5-15 Normal 7 GAP Performed By: #### L100.0100, L500.2500, L501.2450 #### [facility] [address] [place], [address] LIPASE Collected: 06/19/2017 Status: F Source: JAMIE 2:00 PM [facility] REPOSITORY TYPE CODE TESTS RESULT OUT OF REFERENCE UNITS RANGE LAB L501.2450 73-393 U/L Low LIPASE 51 Performed By: #### L100.0100, L500.2500, L501.2450 #### [facility] [address] [place], [address] LACTIC ACID Collected: 06/19/2017 Status: F Source: [place] 2:00 PM [facility] REPOSITORY Order Comment: Yes/No query for Sepsis Lactate Rule Y TYPE CODE TESTS RESULT OUT OF RANGE REFERENCE UNITS LAB L503.6005 0.4-2.0 mmol/L Normal LACTIC ACID 1.7 Performed By: #### L503.6005 #### [facility] [address] [place], [address] ABDOMEN/PELVIS WITH Observed: 06/19/2017 Status: F Source: [place] CONTRAST 1:34 PM [facility] REPOSITORY [facility] Imaging Services [address] [place] [address] Abdomen/Pelvis WITH Contrast MR#: [id number] Acct: [id number] Name: KATHERIN MARTIN Rep #: [id number] : 1940 F 76 From: Fabricio Interiano MD PCP: Moo Reaves MD Status: REG ER Study: Abdomen/Pelvis WITH Contrast Date of Exam: 06/19/17 Exam# [id number] Ordering Dr: Ju Knox DO STUDY: CT ABDOMEN AND PELVIS WITH CONTRAST REASON FOR EXAM: Female, 76 years old. Epigastric pain x3 days. Status post colon resection due to diverticulitis. Status post bladder resection and Whipple procedure. RADIATION DOSAGE (If Supplied By Facility): CTDIvol = ( 16.73 ) mGy, DLP = ( 1207.99 ) mGycm TECHNIQUE: Transaxial images were obtained from the dome of the diaphragm to the symphysis pubis without oral contrast. 100CC ml of Isovue 300 contrast was administered. Sagittal and coronal images were reconstructed. Individualized dose optimization techniques were used for this CT. COMPARISON: September 12, 2016 FINDINGS: The visualized lung bases are unremarkable. The visualized portions of the heart are within normal limits. Normal liver. There are surgical clips in the gallbladder fossa consistent with a prior cholecystectomy. Normal spleen. Normal pancreas. Normal bilateral adrenal glands. Normal right kidney. Normal left kidney. Sutures are noted along the antrum. Anastomotic sutures are noted in the jejunum. This segment appears somewhat distended measuring up to 6.3 cm in diameter. Multiple air-fluid levels are noted throughout the proximal small bowel which also appears somewhat dilated. There is no bowel wall thickening or pneumatosis. Anastomotic sutures are noted at the rectosigmoid junction. There is increased stool in the colon. A few diverticula are noted without significant inflammation. Appendix is not clearly identified. Normal abdominal aorta. Normal inferior vena cava. Normal retroperitoneum. Normal urinary bladder. There is a small umbilical hernia containing fat. Normal osseous structures. CT/Abdomen/Pelvis WITH Contrast IMPRESSION: Early low grade proximal small bowel obstruction versus localized ileus and adynamic segment. Extensive Postop changes as above. Electronically Signed: Fabricio Interiano MD at 16:18 EDT , Service support , CC: Moo Reaves MD; Ju Knox DO Automation Controls Specialist: Signed ORTHOPEDIC VISIT Observed: 06/19/2017 Status: F Source: JAMIE REPORT 8:58 AM [facility] REPOSITORY [facility] Orthopaedics AND Sports Medicine [address] [place] [address] [id number] OFFICE VISIT Date of Service: 05/23/17 MR#: [id number] Acct: [id number] Name: KATHERIN MARTIN Rep #: [id number] : 1940 Provider: Mendy Chicorelli DO Age/Sex: 76/F Location: [facility]MS.SMO Status: Signed Intake Intake Visit Reasons: RIGHT KNEE Is patient in pain?: Yes Allergies ramelteon [From Rozerem] Allergy (Verified 05/30/17 09:30) Other bupropion Adverse Reaction (Verified 05/30/17 09:30) Other bupropion HCl [From Wellbutrin] Adverse Reaction (Verified 05/30/17 09:30) Other dexfenfluramine HCl [From Redux] Adverse Reaction (Verified 05/30/17 09:30) Unknown hydrochlorothiazide Adverse Reaction (Verified 05/30/17 09:30) Other ketorolac tromethamine [From Toradol] Adverse Reaction (Verified 05/30/17 09:30) Itching oxaprozin [From Daypro] Adverse Reaction (Verified 05/30/17 09:30) Other Medications ALPRAZolam [Xanax] 0.5 mg PO QHS 12/11/13 [History Confirmed 06/04/17] Diltiazem CD [Cardizem CD] 240 mg PO DAILY 12/11/13 [History Confirmed 06/04/17] Oxycodone HCl/Acetaminophen [Percocet 5-325] 1 - 2 tab PO Q6H PRN PRN #56 tab 05/15/17 [Rx Confirmed 06/04/17] Sitagliptin Phosphate [Januvia] 100 mg PO DAILY 05/30/17 [History Confirmed 06/04/17] Acetaminophen [Tylenol] 1,000 mg PO Q8H PRN PRN tab 06/12/17 [Rx] Ciprofloxacin 0.3% [Ciloxan] 1 drp RIGHT EYE Q4 bottle 06/12/17 [Rx] Empagliflozin [Jardiance] 25 mg PO DAILY #30 tab 06/12/17 [Rx] Menthol/Lanolin/Calamine/Znox [Calmoseptine Ointment] 1 applic TOPICAL 0600,2200 tube 06/12/17 [Rx] Ondansetron [Zofran Odt] 4 mg PO Q6H PRN PRN #30 tab 06/12/17 [Rx] Oxycodone [Oxyir] 5 - 10 mg PO Q4H PRN PRN tab 06/12/17 [Rx] Rivaroxaban [Xarelto] 20 mg PO DAILY@0600 #30 tab 06/12/17 [Rx] [facility] Medical History whipple surgery (Inactive) Surgical History S/P right knee surgery (Acute) History of bilateral carpal tunnel release (Inactive) History of bladder suspension procedure (Inactive) History of hysterectomy (Inactive) S/P cholecystectomy (Inactive) sigmoid colon removed (Inactive) vaginal wall repaired (Inactive) Family History Mother Myocardial infarction Social History Smoking Status: Never smoker HPI RIGHT KNEE: Details: KATHERIN MARTIN is a 76 year old F here today for s/p right knee scope, dos 05/15/17. Patient states she had no pain for the first 2 days postop and she had a bad dream awoke herself as she was crawling across the floor on her knees and since that time has had pain in the anterior aspect of her knees. Patient stood up from sleeping in a chair and woke up to blood all over her house. She notes that her incision continues to bleed since Saturday. Patient does not remember an injury but had a nightmare and was crawling across her floor. She complains of increased pain after crawling on her knees. Since that time patient has been in so much pain she is basically not been walking or moving around at all. Patient is ambulating with a walker today. She is taking percocet for pain. Denies numbness, tingling or other associated symptoms. Denies sob, chest pain, or other constitutional symptoms today. States knee and calf pain and daughter instructed patient to put on compression socks which she is wearing. ROS Const Reports system reviewed and no additional complaints, except as docu Eyes Reports system reviewed and no additional complaints, except as docu ENT Reports system reviewed and no additional complaints, except as docu Card Reports system reviewed and no additional complaints, except as docu Resp Reports system reviewed and no additional complaints, except as docu GI Reports system reviewed and no additional complaints, except as docu Reports system reviewed and no additional complaints, except as docu Musc Reports joint pain, Reports joint swelling Skin/Breast Reports system reviewed and no additional complaints, except as docu Neuro Yes system reviewed and no additional complaints, except as docu Psych Reports system reviewed and no additional complaints, except as docu Endo Reports system reviewed and no additional complaints, except as docu Ortho Exam Right Knee Date of Surgery: 05/15/17 Skin/Wound: Yes healing Contralateral Normal: Yes Swelling: Yes Homans Sign: Yes 1+: Effusion Knee ROM: Yes ROM-Flexion 0-140 (80), Yes ROM-Extension -20 to 0 (5) Examination: Yes Med jt line tenderness, Yes Pain with flexion, Yes Lat jt line tenderness Assessment AND Plan 1. Pain of right calf M79.661 Plan Patient having increased calf pain and positive Homans will send her for Doppler to rule out DVT. Patient's bleeding has stopped she does have a large hematoma over the F front anterior aspect of her knee at the site of her incisions. No active bleeding again but will monitor for signs of infection as because of this hematoma she is at increased risk of this as well. Patient again states she was doing great for the first 2 days postop and after her crawling episode is now having significant pain was not moving and now we will send her for a Doppler to rule out DVT as she is having calf pain and has not been walking or ambulating at all. Patient agreement aware of plan she will leave here and go straight to get Doppler. addendum- called patient 05/24 at 1310pm, left message on machine to call me back to see how patient was feeling/doing today. Due to the injury she has bruising and swelling increase. Instructed to keep chas on for comfort with ice, we can refill pain medications tomorrow. Follow up in a week or sooner if pain, swelling, numbness or associated symptoms, or concerns develop. All questions answered. Patient in agreement of plan. Orders Orders: 2. Orthopedic aftercare Z47.89 Plan Detail Other Medications New: rivaroxaban (Xarelto) administer with evening meal onc15 mg PO QPM Mendy Walker DO e daily for 3 weeks Discontinued: hydrocodone-acetaminophen 5-325 mg (1 tab PO Q6H 6 days PRN postop pain Background [facility] [place]) take 1-2 tabs every 6 hour s as needed for pain Discontinued Reason: By Stop Date Coding Level of Care Code Global Post Op Diagnoses Pain of right calf M79.661 Orthopedic aftercare Z47.89 06/19/17 0858 <Electronically signed by Mendy Walker DO> Date Mendy Smith Signature: Date (if applicable) CC: BEDSIDE GLUCOSE Collected: 06/19/2017 Status: F Source: JAMIE 6:19 AM [facility] REPOSITORY TYPE CODE TESTS RESULT OUT OF REFERENCE UNITS RANGE LAB L501.080 70-110 mg/dL High BEDSIDE GLU 146 Result Comment: MANAGEMENT OF PATIENT CARE PER NURSING PROTOCOL Performed By: #### L501.080 #### [facility] Point [place] [address] CBC W/DIFF, AUTOMATED Collected: 06/19/2017 Status: F Source: JAMIE 4:52 AM [facility] REPOSITORY Order Comment: SPECIMEN OBTAINED FROM LINE DRAW TYPE CODE TESTS RESULT OUT OF RANGE REFERENCE UNITS LAB L100.1000 4.4-11.0 K/mm3 Normal WBC 7.0 LAB L100.1200 4.2-5.4 M/mm3 Normal RBC 4.44 LAB L100.1300 12.0-15.0 g/dl Normal HGB 13.8 LAB L100.1400 37-47 % Normal HCT 41.6 LAB L100.1500 81-99 fL Normal MCV 93.7 LAB L100.1600 27.0-32.0 pg Normal MCH 31.1 LAB L100.1700 32-36 g/gl Normal MCHC 33.2 LAB L100.1810 11.6-14.6 % Normal RDW CV 14.2 LAB L100.1820 35.1-43.9 fl High RDW SD 46.7 LAB L100.1900 150-450 K/mm3 Normal PLT 182 LAB L100.2000 6.2-12.0 fl Normal MPV 9.7 LAB L100.2100 47-70 % Normal NEUT% 54.8 LAB L100.2200 19-41 % Normal LY% 36.5 LAB L100.2300 0-10 % Normal MONO% 6.6 LAB L100.2400 0-5 % Normal EO% 1.1 LAB L100.2500 0-1 % Normal BASO% 0.3 LAB L100.2550 0.0-0.9 % Normal IM GRAN % 0.700 Result Comment: IG% - Immature Granulocytes (promyelocytes, myelocytes and metamyelocytes) > 1% indicates that a LEFT SHIFT is Present. LAB L100.2620 2.0-7.7 X10 3/uL Normal Absolute Neut 3.9 LAB L100.2720 0.83-4.51 X10 3/ul Normal Absolute Lymph 2.56 Performed By: #### L100.0100 #### [facility] [address] [place], [address] BASIC METABOLIC Collected: 06/19/2017 Status: F Source: [place] PROFILE ([facility]) 4:52 AM [facility] REPOSITORY Order Comment: SPECIMEN OBTAINED FROM LINE DRAW TYPE CODE TESTS RESULT OUT OF RANGE REFERENCE UNITS LAB L501.0100 74-106 mg/dL High GLU 123 Result Comment: Fasting Glucose result from 100 to 125 mg/dL suggests IMPAIRED HOMEOSTASIS per A.D.A. criteria. Please note revised GLUCOSE reference range effective 2017. LAB L501.1000 7-18 mg/dL Normal BUN 12 LAB L501.1100 0.55-1.02 mg/dL Low CREAT,SERUM 0.50 Result Comment: The validity of the calculated GFR AND GFRAA in patients over 70 years has not been determined. Clinical correlation is essential. LAB L501.1110 >60 mL/min Normal EST GFR 126 Result Comment: Non- GFR Calc LAB L501.1115 >60 mL/min Normal EST GFR - AA 153 Result Comment: GFR Calc LAB L501.1255 ml/min Normal Estimated CRCL 40.21 LAB L501.1300 10-20 RATIO High BUN/CRE 23.8 LAB L501.2200 8.5-10 mg/dL Normal .1 CA 9.6 LAB L501.5300 136-14 mmol/L Normal 5 NA 142 LAB L501.5600 3.5-5. mmol/L Normal 1 K 3.9 LAB L501.5900 98-107 mmol/L Normal CL 105 LAB L501.6100 21.0-3 mmol/L Normal 2.0 CO2 32.0 LAB L501.6200 5-15 Normal GAP 5 Performed By: #### L500.2500 #### [facility] [address] [place], [address] BEDSIDE GLUCOSE Collected: 06/18/2017 Status: F Source: JAMIE 6:28 AM [facility] REPOSITORY TYPE CODE TESTS RESULT OUT OF REFERENCE UNITS RANGE LAB L501.080 70-110 mg/dL High BEDSIDE GLU 132 Result Comment: MANAGEMENT OF PATIENT CARE PER NURSING PROTOCOL Performed By: #### L501.080 #### [facility] Point of Care [address] [place] [address] BEDSIDE GLUCOSE Collected: 06/17/2017 Status: F Source: JAMIE 6:20 AM [facility] REPOSITORY TYPE CODE TESTS RESULT OUT OF REFERENCE UNITS RANGE LAB L501.080 70-110 mg/dL High BEDSIDE GLU 145 Result Comment: MANAGEMENT OF PATIENT CARE PER NURSING PROTOCOL Performed By: #### L501.080 #### [facility] Point of Care [address] [place] [address] BEDSIDE GLUCOSE Collected: 06/16/2017 Status: F Source: JAMIE 6:38 AM [facility] REPOSITORY TYPE CODE TESTS RESULT OUT OF REFERENCE UNITS RANGE LAB L501.080 70-110 mg/dL High BEDSIDE GLU 121 Result Comment: MANAGEMENT OF PATIENT CARE PER NURSING PROTOCOL Performed By: #### L501.080 #### [facility] Point of Care [address] [place] [address] BEDSIDE GLUCOSE Collected: 06/15/2017 Status: F Source: JAMIE 6:32 AM [facility] REPOSITORY TYPE CODE TESTS RESULT OUT OF REFERENCE UNITS RANGE LAB L501.080 70-110 mg/dL High BEDSIDE GLU 112 Result Comment: MANAGEMENT OF PATIENT CARE PER NURSING PROTOCOL Performed By: #### L501.080 #### [facility] Point of Care [address] [place] [address] BEDSIDE GLUCOSE Collected: 06/14/2017 Status: F Source: JAMIE 6:31 AM [facility] REPOSITORY TYPE CODE TESTS RESULT OUT OF REFERENCE UNITS RANGE LAB L501.080 70-110 mg/dL High BEDSIDE GLU 132 Result Comment: MANAGEMENT OF PATIENT CARE PER NURSING PROTOCOL Performed By: #### L501.080 #### [facility] Point of Care [address] [place] [address] BEDSIDE GLUCOSE Collected: 06/13/2017 Status: F Source: [place] 6:55 AM [facility] REPOSITORY TYPE CODE TESTS RESULT OUT OF REFERENCE UNITS RANGE LAB L501.080 70-110 mg/dL High BEDSIDE GLU 134 Result Comment: MANAGEMENT OF PATIENT CARE PER NURSING PROTOCOL Performed By: #### L501.080 #### [facility] Point of Care [address] [place] [address] DISCHARGE SUMMARY Observed: 06/12/2017 Status: F Source: [place] 9:03 PM [facility] REPOSITORY [facility] Medical Records Department [address] [facility] [place] [address] Discharge Summary 06/12/172058 MR#: [id number] Acct: [id number] Name: KATHERIN MARTIN Rep #: [id number] : 1940 76 From: Saravanan Weldon MD PCP: Moo Reaves MD Status: ADM IN Y Location: [place] [address] Discharge Date and Diagnosis - Problem List Patient Problems: Active and Suspected Problems (Last Updated 04/23/17 @ 09:56 by Armida Neal) Acute delirium (Acute) Chest pain (Acute) Shortness of breath (Acute) Date of Admission: 06/04/17 Date of Discharge: 06/19/17 - Primary Discharge Diagnosis Active and Suspected Problems (Last Updated 04/23/17 @ 09:56 by Armida Neal) Acute delirium (Acute) Chest pain (Acute) Shortness of breath (Acute) - Secondary Discharge Diagnosis Chronic Problems (Last Updated 04/23/17 @ 09:56 by Armida Neal) Diabetes mellitus (Chronic) Anxiety (Chronic) Edema (Chronic) Right knee meniscus surgery (Chronic) Afib (Chronic) SBO (small bowel obstruction) (Chronic) Hyperlipidemia (Chronic) Osteoarthritis (Chronic) Hypertension (Chronic) Type 2 diabetes mellitus (Chronic) Hospital Course and Treatment Imaging Results: 06/08/17 18:07 Diet: Regular Diet Is pt able to select menu?: Yes Labs (Last 48 Hours) WBC RBC Hgb Hct MCV MCH MCHC RDW RDW Differential Plt Count MPV Immature Gran % (Auto) Neut % (Auto) Operations: None Procedures: None Summary of Care Provided: The patient is a 76 year old Female with below past medical history hospitalized for acute delirium secondary to polypharmacy, complicated by right lower extremity DVT, chest pain, partially treated urinary tract infection, admitted to TCU with debility, here for rehabilitation, strengthening, prior to discharge home alone. [] Discharge home alone with outpatient physical therapy, resident daughter to stay with resident for the first few days. Discharge Diet: No Restrictions Discharge Activity: Return to Normal Activity, May Shower, Use Walker Weight Bearing Status: Weight bearing as tolerated Call your doctor if you observe: Fever of 101 or Higher, Inability to urinate, Inability to have a bowel movement, Shortness of breath, Chest pain, Uncontrolled pain Home Medications: Medications to take at Discharge ALPRAZolam [Xanax] 0.5 mg PO QHS 12/11/13 Diltiazem CD [Cardizem CD] 240 mg PO DAILY 12/11/13 Oxycodone HCl/Acetaminophen [Percocet 5-325] 1 - 2 tablet PO Q6H PRN PRN #56 tablet 05/15/17 Sitagliptin Phosphate [Januvia] 100 mg PO DAILY 05/30/17 Acetaminophen [Tylenol] 1,000 mg PO Q8H PRN PRN tablet 06/12/17 Ciprofloxacin 0.3% [Ciloxan] 1 drop RIGHT EYE Q4 bottle 06/12/17 Empagliflozin [Jardiance] 25 mg PO DAILY #30 tab 06/12/17 Menthol/Lanolin/Calamine/Znox [Calmoseptine Ointment] 1 applic TOPICAL 0600,2200 tube 06/12/17 Ondansetron [Zofran Odt] 4 mg PO Q6H PRN PRN #30 tab 06/12/17 Oxycodone [Oxyir] 5 - 10 mg PO Q4H PRN PRN tablet 06/12/17 Rivaroxaban [Xarelto] 20 mg PO DAILY@0600 #30 tab 06/12/17 Following Prescrptions Were Given to Patient: Ondansetron [Zofran Odt] 4 mg PO Q6H PRN PRN #30 tab PRN Reason: Nausea Empagliflozin [Jardiance] 25 mg PO DAILY #30 tab Rivaroxaban [Xarelto] 20 mg PO DAILY@0600 #30 tab Primary Care Physician: Moo Reaves MD [Primary Care Provider] - Please follow up with your Primary Care Physician in: 1 week. Please Follow Up With: Moo Reaves MD When: [phone] Please Follow Up With: Mendy Walker DO When: 1 WEEK [phone] Disposition: Home Minutes spent on discharge:: 30 Patient Condition:: Stable Medical Necessity - Tobacco Use Smoking Status: Never smoker Tobacco Use: Non-smoker Meaningful Use Info Meaningful Use Diagnoses (Choose all that apply): None applicable 06/12/172102 <Electronically signed by Saravanan Weldon MD> Date Saravanan Weldon [facility] Signature (if applicable): Date CC: Moo Reaves MD; Saravanan Weldon MD Signed DISCHARGE INSTRUCTION Observed: 06/12/2017 Status: F Source: [place] 9:01 PM [facility] REPOSITORY [facility] Medical Records Department [address] [place] [address] Instructions for Home/Discharge Instructions 06/12/172056 MR#: [id number] Acct: [id number] Name: KATHERIN MARTIN Rep #: [id number] : 1940 76 From: Saravanan Weldon MD PCP: Moo Reaves MD Status: ADM IN ADDENDUM by Saravanan Weldon MD on 06/12/17 at 2101 Discharge home alone with outpatient physical therapy, resident daughter to stay with resident for the first few days. Date Saravanan Weldon MD cc: Moo Reaves MD * Signed - Discharge Diagnoses Current Active Problems: Current Active and Chronic Problems (Last Updated 04/23/17 @ 09:56 by Armida Neal) Acute delirium (Acute) Chest pain (Acute) Shortness of breath (Acute) Diabetes mellitus (Chronic) Anxiety (Chronic) Edema (Chronic) You will use the following diet at home:: No restrictions, Regular Your food should be the consistency of: Regular Your liquids should be the consistency of: Regular/Thin Discharge Activity: Return to Normal Activity, May Shower, Use Walker Weight Bearing Status: Weight bearing as tolerated Call your doctor if you observe: Fever of 101 or Higher, Inability to urinate, Inability to have a bowel movement, Shortness of breath, Chest pain, Uncontrolled pain Allergies/Adverse Reactions: Allergies ramelteon [From Rozerem] Allergy (Verified 05/30/17 09:30) Other bupropion Adverse Reaction (Verified 05/30/17 09:30) Other UNKNOWN bupropion HCl [From Wellbutrin] Adverse Reaction (Verified 05/30/17 09:30) Other UNKNOWN dexfenfluramine HCl [From Redux] Adverse Reaction (Verified 05/30/17 09:30) Unknown hydrochlorothiazide Adverse Reaction (Verified 05/30/17 09:30) Other UNKNOWN ketorolac tromethamine [From Toradol] Adverse Reaction (Verified 05/30/17 09:30) Itching oxaprozin [From Daypro] Adverse Reaction (Verified 05/30/17 09:30) Other UNKNOWN Medications to take at Discharge ALPRAZolam [Xanax] 0.5 mg PO QHS 12/11/13 Diltiazem CD [Cardizem CD] 240 mg PO DAILY 12/11/13 Oxycodone HCl/Acetaminophen [Percocet 5-325] 1 - 2 tablet PO Q6H PRN PRN #56 tablet 05/15/17 Sitagliptin Phosphate [Januvia] 100 mg PO DAILY 05/30/17 Acetaminophen [Tylenol] 1,000 mg PO Q8H PRN PRN tablet 06/12/17 Ciprofloxacin 0.3% [Ciloxan] 1 drop RIGHT EYE Q4 bottle 06/12/17 Empagliflozin [Jardiance] 25 mg PO DAILY #30 tab 06/12/17 Menthol/Lanolin/Calamine/Znox [Calmoseptine Ointment] 1 applic TOPICAL 0600,2200 tube 06/12/17 Ondansetron [Zofran Odt] 4 mg PO Q6H PRN PRN #30 tab 06/12/17 Oxycodone [Oxyir] 5 - 10 mg PO Q4H PRN PRN tablet 06/12/17 Rivaroxaban [Xarelto] 20 mg PO DAILY@0600 #30 tab 06/12/17 The following prescriptions were given: Ondansetron [Zofran Odt] 4 mg PO Q6H PRN PRN #30 tab PRN Reason: Nausea Empagliflozin [Jardiance] 25 mg PO DAILY #30 tab Rivaroxaban [Xarelto] 20 mg PO DAILY@0600 #30 tab Primary Care Physician: Moo Reaves MD [Primary Care Provider] - Please follow up with your Primary Care Physician in: 1 week. Please Follow Up With: Moo Reaves MD When: [phone] Please Follow Up With: Mendy Walker DO When: 1 WEEK [phone] Proposed Discharge Date: 06/19/17 06/12/172057 <Electronically signed by Saravanan Weldon MD> Date Saravanan Weldon MD CC: Moo Reaves MD BEDSIDE GLUCOSE Collected: 06/12/2017 Status: F Source: JAMIE 6:27 AM [facility] REPOSITORY TYPE CODE TESTS RESULT OUT OF REFERENCE UNITS RANGE LAB L501.080 70-110 mg/dL High BEDSIDE GLU 123 Result Comment: MANAGEMENT OF PATIENT CARE PER NURSING PROTOCOL Performed By: #### L501.080 #### [facility] KayeBreann [place], [place] [address] BASIC METABOLIC Collected: 06/12/2017 Status: F Source: JAMIE PROFILE (BMP) 5:45 AM [facility] REPOSITORY Order Comment: SPECIMEN OBTAINED FROM LINE DRAW TYPE CODE TESTS RESULT OUT OF RANGE REFERENCE UNITS LAB L501.0100 74-106 mg/dL High GLU 115 Result Comment: Fasting Glucose result from 100 to 125 mg/dL suggests IMPAIRED HOMEOSTASIS per A.D.A. criteria. Please note revised GLUCOSE reference range effective 2017. LAB L501.1000 7-18 mg/dL Normal BUN 14 LAB L501.1100 0.55-1.02 mg/dL Low CREAT,SERUM 0.48 Result Comment: The validity of the calculated GFR AND GFRAA in patients over 70 years has not been determined. Clinical correlation is essential. LAB L501.1110 >60 mL/min Normal EST GFR 135 Result Comment: Non- GFR Calc LAB L501.1115 >60 mL/min Normal EST GFR - AA 163 Result Comment: GFR Calc LAB L501.1255 ml/min Normal Estimated CRCL 40.21 LAB L501.1300 10-20 RATIO High BUN/CRE 29.3 LAB L501.2200 8.5-10 mg/dL Normal .1 CA 9.4 LAB L501.5300 136-14 mmol/L Normal 5 NA 142 LAB L501.5600 3.5-5. mmol/L Normal 1 K 4.1 LAB L501.5900 98-107 mmol/L Normal CL 106 LAB L501.6100 21.0-3 mmol/L Normal 2.0 CO2 32.0 LAB L501.6200 5-15 Low GAP 4 Performed By: #### L500.2500 #### [facility] [address] [place], [address] CBC W/DIFF, AUTOMATED Collected: 06/12/2017 Status: C Source: [place]UM[place] 5:45 AM [facility] REPOSITORY Order Comment: SPECIMEN OBTAINED FROM LINE DRAW TYPE CODE TESTS RESULT OUT OF RANGE REFERENCE UNITS LAB L100.1000 4.4-11.0 K/mm3 Normal WBC 7.2 LAB L100.1200 4.2-5.4 M/mm3 Low RBC 4.17 LAB L100.1300 12.0-15.0 g/dl Normal HGB 13.0 LAB L100.1400 37-47 % Normal HCT 39.6 LAB L100.1500 81-99 fL Normal MCV 95.0 LAB L100.1600 27.0-32.0 pg Normal MCH 31.2 LAB L100.1700 32-36 g/gl Normal MCHC 32.8 LAB L100.1810 11.6-14.6 % Normal RDW CV 14.4 LAB L100.1820 35.1-43.9 fl High RDW SD 48.1 LAB L100.1900 150-450 K/mm3 Normal PLT 176 LAB L100.2000 6.2-12.0 fl Normal MPV 10.2 LAB L100.2100 47-70 % Normal NEUT% 49.9 LAB L100.2200 19-41 % Normal LY% 40.7 LAB L100.2300 0-10 % Normal MONO% 6.3 LAB L100.2400 0-5 % Normal EO% 0.7 LAB L100.2500 0-1 % Normal BASO% 0.4 LAB L100.2550 0.0-0.9 % High IM GRAN % 2.000 Result Comment: IG% - Immature Granulocytes (promyelocytes, myelocytes and metamyelocytes) > 1% indicates that a LEFT SHIFT is Present. LAB L100.2620 2.0-7.7 X10 3/uL Normal Absolute Neut 3.6 LAB L100.2720 0.83-4.51 X10 3/ul Normal Absolute Lymph 2.91 LAB L100.9900 Normal PATH REV Reviewed Result Comment: AMENDED REPORT 06/12/17917 PATH REV previously reported as: June Performed By: #### L100.0100 #### [facility] [address], [place], [id number] BEDSIDE GLUCOSE Collected: 06/11/2017 Status: F Source: JAMIE 6:24 AM [facility] REPOSITORY TYPE CODE TESTS RESULT OUT OF REFERENCE UNITS RANGE LAB L501.080 70-110 mg/dL High BEDSIDE GLU 127 Result Comment: MANAGEMENT OF PATIENT CARE PER NURSING PROTOCOL Performed By: #### L501.080 #### [facility] Point of Care [address] [facility] [address] BEDSIDE GLUCOSE Collected: 06/10/2017 Status: F Source: [place] 6:21 AM [facility] REPOSITORY TYPE CODE TESTS RESULT OUT OF REFERENCE UNITS RANGE LAB L501.080 70-110 mg/dL High BEDSIDE GLU 145 Result Comment: MANAGEMENT OF PATIENT CARE PER NURSING PROTOCOL Performed By: #### L501.080 #### [facility] Point of Care [address] [place] [address] BEDSIDE GLUCOSE Collected: 06/09/2017 Status: F Source: JAMIE 6:34 AM [facility] REPOSITORY TYPE CODE TESTS RESULT OUT OF REFERENCE UNITS RANGE LAB L501.080 70-110 mg/dL High BEDSIDE GLU 131 Result Comment: MANAGEMENT OF PATIENT CARE PER NURSING PROTOCOL Performed By: #### L501.080 #### [facility] Point of Care [address] [place] [address] BEDSIDE GLUCOSE Collected: 06/08/2017 Status: F Source: JAMIE 6:29 AM [facility] REPOSITORY TYPE CODE TESTS RESULT OUT OF REFERENCE UNITS RANGE LAB L501.080 70-110 mg/dL High BEDSIDE GLU 139 Result Comment: MANAGEMENT OF PATIENT CARE PER NURSING PROTOCOL Performed By: #### L501.080 #### [facility] Point of Care [address] [place] [address] BEDSIDE GLUCOSE Collected: 06/07/2017 Status: F Source: JAMIE 6:50 AM [facility] REPOSITORY TYPE CODE TESTS RESULT OUT OF REFERENCE UNITS RANGE LAB L501.080 70-110 mg/dL High BEDSIDE GLU 125 Result Comment: MANAGEMENT OF PATIENT CARE PER NURSING PROTOCOL Performed By: #### L501.080 #### [facility] Point of Care [address] [place] [address] URINALYSIS, COMPLETE Collected: 06/06/2017 Status: F Source: JAMIE 3:30 PM [facility] REPOSITORY Order Comment: Order Date: 06/06/17 Has pt arrived? Y How was Urine Obtained? CLEAN CATCH TYPE CODE TESTS RESULT OUT OF RANGE REFERENCE UNITS LAB L400.3000 Yellow COLOR Normal Yellow LAB L400.3050 Clear Normal CLARITY Cloudy LAB L400.3200 Normal mg/dl High GLUCOSE, UR 1000 LAB L400.3300 Negative mg/dL Normal BILIRUBIN URINE Negative LAB L400.3400 Negative mg/dl Normal KETONE UR Negative LAB L400.3465 1.002-1.030 Normal SP.GR. DIPSTX 1.015 LAB L400.3550 5.0 - 8.0 pH UR Normal 6.0 LAB L400.3600 Negative mg/dl PROT Normal DIPSTX Negative LAB L400.3700 Normal mg/dl Normal UROBILI Normal LAB L400.3750 Negative Normal NITRITE UR Negative LAB L400.3780 Negative /ul High 25 OCCULT BLOOD-UR LAB L400.3800 Negative /ul High LEUK ESTERASE 100 LAB L400.4050 0-5 /hpf WBC Normal 25-50 SEEN LAB L400.4100 0-5 /hpf Normal RBC-UA 0-5 SEEN LAB L400.4150 5-10 /hpf SQUAM Normal EPI 0-5 SEEN LAB L400.4300 None Seen /hpf 4+ Normal BACTERIA LAB L400.4350 <or=2+ /hpf 0 Normal MUCUS, URINE SEEN Performed By: #### L400.0001 #### [facility] [address] [place], [address] Observed: 06/06/2017 Status: F Source: DRUM[place]D CULTURE, URINE 3:30 PM [facility] REPOSITORY Comments: Already sent Urine Culture RESULTS CALLED TO SANDEEP/ADILENE 06/08/17 0819 Evelin Roberto. Copy of report sent to Infection Control Printer [id number] 06/08/17 0819 AMELIE. ORGANISM 1: Escherichia coli [place] Count 80,000-100,000 MARKER ESBL producing Organism Escherichia coli: REACTION Amikacin $ 8 S Aztreonam $$$ >=64 R Meropenem $ <=0.25 S (NF) indicates non-formulary drug at [facility]. Approval by Infectious Disease Specialist required before non-formulary drugs may be ordered and/or dispensed. Escherichia coli: REACTION Amoxacillin/Clavulanic Acid $ 16 I Ampicillin $ >=32 R Ampicillin/Sulbactam $ >=32 R Cefazolin $ >=64 R Cefepime $ >=64 R Ceftriaxone $ >=64 R Ciprofloxacin $ >=4 R ESBL + Ertapenim $$$ <=0.5 S Gentamicin $ >=16 R Imipenem *NF <=0.25 S Levofloxacin $ >=8 R Nitrofurantoin $ <=16 S Piperacillin/Tazobactam $$ 8 S Tobramycin $ >=16 R Trimethoprim/Sulfametho $ <=20 S (NF) indicates non-formulary drug at [facility]. Approval by Infectious Disease Specialist required before non-formulary drugs may be ordered and/or dispensed. Performed By: #### M100.0650 #### [facility] [address] [place], [place], [address] BEDSIDE GLUCOSE Collected: 06/06/2017 Status: F Source: [place] 6:28 AM [facility] REPOSITORY TYPE CODE TESTS RESULT OUT OF REFERENCE UNITS RANGE LAB L501.080 70-110 mg/dL High BEDSIDE GLU 146 Result Comment: MANAGEMENT OF PATIENT CARE PER NURSING PROTOCOL Performed By: #### L501.080 #### [facility] Point of Care [address] [place] [address] CBC W/DIFF, AUTOMATED Collected: 06/05/2017 Status: C Source: [place] 6:44 AM [facility] REPOSITORY TYPE CODE TESTS RESULT OUT OF RANGE REFERENCE UNITS LAB L100.1000 4.4-11.0 K/mm3 Normal WBC 6.7 LAB L100.1200 4.2-5.4 M/mm3 Normal RBC 4.47 LAB L100.1300 12.0-15.0 g/dl Normal HGB 13.6 LAB L100.1400 37-47 % Normal HCT 41.5 LAB L100.1500 81-99 fL Normal MCV 92.8 LAB L100.1600 27.0-32.0 pg Normal MCH 30.4 LAB L100.1700 32-36 g/gl Normal MCHC 32.8 LAB L100.1810 11.6-14.6 % Normal RDW CV 14.4 LAB L100.1820 35.1-43.9 fl High RDW SD 49.1 LAB L100.1900 150-450 K/mm3 Normal PLT 173 LAB L100.2000 6.2-12.0 fl Normal MPV 9.4 LAB L100.2100 47-70 % Normal NEUT% 52.5 LAB L100.2200 19-41 % Normal LY% 37.0 LAB L100.2300 0-10 % Normal MONO% 6.9 LAB L100.2400 0-5 % Normal EO% 1.1 LAB L100.2500 0-1 % Normal BASO% 0.5 LAB L100.2550 0.0-0.9 % High IM GRAN % 2.000 Result Comment: IG% - Immature Granulocytes (promyelocytes, myelocytes and metamyelocytes) > 1% indicates that a LEFT SHIFT is Present. LAB L100.2620 2.0-7.7 X10 3/uL Normal Absolute Neut 3.5 LAB L100.2720 0.83-4.51 X10 3/ul Normal Absolute Lymph 2.46 LAB L100.9900 Normal PATH REV Reviewed Result Comment: Neutrophilic left shift. Clinical correlation necessary. Alfonso Ling M.D. 06/05/17 AMENDED REPORT 06/05/17 1446 PATH REV previously reported as: Eileen dowling Performed By: #### L100.0100 #### [facility] [address] [place], [address] BASIC METABOLIC Collected: 06/05/2017 Status: F Source: [place] PROFILE ([facility]) 6:44 AM [facility] REPOSITORY TYPE CODE TESTS RESULT OUT OF RANGE REFERENCE UNITS LAB L501.0100 74-106 mg/dL High GLU 178 Result Comment: Fasting Glucose result greater than or equal to 126 mg/dL suggests DIABETES MELLITUS per A.D.A. criteria. Please note revised GLUCOSE reference range effective 2017. LAB L501.1000 7-18 mg/dL Normal BUN 15 LAB L501.1100 0.55-1.02 mg/dL Normal CREAT,SERUM 0.60 Result Comment: The validity of the calculated GFR AND GFRAA in patients over 70 years has not been determined. Clinical correlation is essential. LAB L501.1110 >60 mL/min Normal EST GFR 103 Result Comment: Non- GFR Calc LAB L501.1115 >60 mL/min Normal EST GFR - AA 125 Result Comment: GFR Calc LAB L501.1255 ml/min Normal Estimated CRCL 40.21 LAB L501.1300 10-20 RATIO High BUN/CRE 25.0 LAB L501.2200 8.5-10 mg/dL Normal .1 CA 10.0 LAB L501.5300 136-14 mmol/L Normal 5 NA 140 LAB L501.5600 3.5-5. mmol/L Normal 1 K 3.8 LAB L501.5900 98-107 mmol/L Normal CL 106 LAB L501.6100 21.0-3 mmol/L Normal 2.0 CO2 25.0 LAB L501.6200 5-15 Normal GAP 9 Performed By: #### L500.2500 #### [facility] [address] [place], [address] BEDSIDE GLUCOSE Collected: 06/05/2017 Status: F Source: [place] 6:28 AM [facility] REPOSITORY TYPE CODE TESTS RESULT OUT OF REFERENCE UNITS RANGE LAB L501.080 70-110 mg/dL High BEDSIDE GLU 158 Result Comment: MANAGEMENT OF PATIENT CARE PER NURSING PROTOCOL Performed By: #### L501.080 #### [facility] Point of Care [address] [facility] [place] [address] HISTORY AND PHYSICAL Observed: 06/04/2017 Status: F Source: [place] EXAM 8:42 PM [facility] REPOSITORY [facility] Medical Records Department [address] [place] [address] History and Physical 06/04/172020 MR#: [id number] Acct: [id number] Name: KATHERIN MARTIN Rep #: [id number] : 1940 76 From: Saravanan Weldon MD PCP: Moo Reaves MD Status: ADM IN Location: [place] [address] Problem List (1) Acute delirium Status: Acute (2) Chest pain Status: Acute (3) Shortness of breath Status: Acute (4) Diabetes mellitus Status: Chronic (5) Anxiety Status: Chronic (6) Edema Status: Chronic (7) Right leg DVT Status: Acute (8) Afib Status: Chronic (9) SBO (small bowel obstruction) Status: Chronic (10) Hyperlipidemia Status: Chronic (11) Osteoarthritis Status: Chronic (12) Hypertension Status: Chronic History of Present Illness Date of Admission: 06/04/17 Chief Complaint: Here for rehabilitation, strengthening, prior to discharge home alone. The patient is a 76 year old Female with below past medical history presented to [facility] Emergency Department 05/30/2017 with confusion, shortness of breath. 05/30/2017 Chest X-ray negative. 05/30/2017 CT brain chronic involutional changes of brain, bilateral sphenoid sinus opacification. Confusion in AM. Diagnosed with UTI, treated with Macrobid. Nausea, shortness of breath, sweats, anxiety. Recent right knee surgery, complicated by RLE DVT. Treated with Xarelto. CBC okay, BMP okay, UA negative, Troponin 0.02. EKG heart rate 84, nonspecific ST changes. Oxycodone given for right knee pain. 05/30/2017 Admit to Hospital. Recently started on Cymbalta 60MG along with Percocet 1-2 tablets Q6H, Ambien at night. Urine culture ordered. Cycle cardiac enzymes. 05/31/2017 Cymbalta held. Seroquel added. Patient may have stopped Xanax abruptly. Macrobid for UTI, urine culture negative. Troponin negative. Xarelto for DVT. 06/01/2017 Mental status back to baseline. Patient requesting to go to TCU, her was at TCU previously. Chest pain resolved, thought secondary to anxiety. Right knee meniscal surgical repair 05/15/[address] Walker. Xarelto for right lower extremity DVT. 06/04/2017 Admit to TCU for rehabilitation, strengthening, prior to discharge home alone. Past Medical History Past Medical History (Chronic Problems): Chronic Problems (Last Updated 04/23/17 @ 09:56 by Armida Neal) Diabetes mellitus (Chronic) Anxiety (Chronic) Edema (Chronic) Right knee meniscus surgery (Chronic) Afib (Chronic) SBO (small bowel obstruction) (Chronic) Hyperlipidemia (Chronic) Osteoarthritis (Chronic) Hypertension (Chronic) Type 2 diabetes mellitus (Chronic) Allergies ramelteon [From Rozerem] Allergy (Verified 05/30/17 09:30) Other bupropion Adverse Reaction (Verified 05/30/17 09:30) Other UNKNOWN bupropion HCl [From Wellbutrin] Adverse Reaction (Verified 05/30/17 09:30) Other UNKNOWN dexfenfluramine HCl [From Redux] Adverse Reaction (Verified 05/30/17 09:30) Unknown hydrochlorothiazide Adverse Reaction (Verified 05/30/17 09:30) Other UNKNOWN ketorolac tromethamine [From Toradol] Adverse Reaction (Verified 05/30/17 09:30) Itching oxaprozin [From Daypro] Adverse Reaction (Verified 05/30/17 09:30) Other UNKNOWN Home Medications: Ambulatory Orders Medication Instructions Recorded ALPRAZolam [Xanax] 0.5 mg PO QHS 12/11/13 Surgical History: arthroscopy, knee - Right knee meniscal repair, cholecystectomy, - - 2014 had bowel resection, also had whipple procedure in [place] 2007- , tubal ligation, carpal tunnel in wrist, shoulder and hand surgery hysterectemy, bladder suspension, wall between vagina and colon. 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 Skin: Denies: Rash, Wounds Neurological: Denies: Numbness, Tingling, Focal weakness Psychiatric: Denies: Anxiety, Depression, Homicidal Ideations, Suicidal Ideations Hematologic/ Lymphatic: Denies: Easy Bruising, Easy Bleeding VTE Information - Inpt Only VTE Present on Admission: Yes VTE Mechan Device Prophylaxis: Knee High ANICETO Hose VTE Pharm Prophylaxis ordered?: No Reason prophylaxis not ordered:: Treatment Not Indicated - Already on Xarelto for right lower extremity DVT. Patient Problems: Active and Suspected Problems (Last Updated 04/23/17 @ 09:56 by Armida Neal) Acute delirium (Acute) Chest pain (Acute) Shortness of breath (Acute) - Physical Exam General: Alert, Oriented x3, Cooperative HEENT: Atraumatic, PERRLA, EOMI, Normocephalic Neck: Supple, No JVD, Negative Carotid Bruits Lungs: Clear to auscultation, Normal air movement Cardiovascular: Regular rate, No murmurs Abdomen: Bowel Sounds Present, Soft, Non Tender Extremities: No edema, Capillary Refill Less than 3 Seconds Skin: No rashes, No breakdown Musculoskeletal: No Tenderness to Palpation of Joints or Extremities, - - Right knee swollen, bruised, tender to palpation. Neurological: Cranial nerves II-XII grossly intact Psych/Mental Status: Normal Affect, Appropriate Vital Signs Temp Pulse Resp BP Pulse Ox 97.2 F L 76 18 136/64 H 96 06/04/17 15:50 06/04/17 15:50 06/04/17 15:50 06/04/17 15:50 06/04/17 15:50 Oxygen Delivery Method Room Air Weight: 98.9 kg Body Mass Index (BMI) 38.6 Finger Stick Blood Glucose 173 Intake and Output for Last 24 Hours Intake Total 180 / 180 Output Total Balance 179 / 179 Assessment/Plan Active and Suspected Problems (Last Updated 04/23/17 @ 09:56 by Armida Neal) Acute delirium (Acute) Chest pain (Acute) Shortness of breath (Acute) 76 year old female with below past medical history hospitalized for acute delirium secondary to polypharmacy, complicated by right lower extremity DVT, chest pain, partially treated urinary tract infection, admitted to TCU with debility, here for rehabilitation, strengthening, prior to discharge home alone. * Debility - PT/OT. * Pain - Tylenol 1000MG Q8H PRN mild pain, Oxycodone 5-10MG Q6H PRN severe pain. * Bowel - Miralax 17GM daily, Senna/colace 2 tablets BID, Dulcolax 10MG UT daily PRN. * Pneumonia vaccination - Administer Prevnar 13 and/or Pneumovax 23 as necessary. * DVT prophylaxis - Not necessary, on Xarelto for treatment of RLE DVT. 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 * Diabetes Mellitus II - Tradjenta 5MG daily, change Invokana 300MG to Jardiance 25MG to lower risk of amputation. * Hypertension - Diltiazem 240MG daily. * Acute Delirium - Seroquel 25MG QHS x 3 days, then 12.5MG QHS x 7 days, then stop. (Gradual Dose reduction). * Right lower extremity DVT - Xarelto 15MG twice daily thru 06/14/2017, then 20MG daily thru 11/23/2017. 06/04/172041 <Electronically signed by Saravanan Weldon MD> Date Saravanan Crespo Signature: Date (if applicable) CC: Moo Reaves MD; Saravanan Weldon MD Signed 12 LEAD ELECTROCARDIOGRAM Observed: 06/04/2017 Status: F Source: JAMIE 2:11 PM [facility] REPOSITORY [facility] Cardiovascular Services [address] [place] [address] 12 Lead EKG 05/30/17 0940 MR#: [id number] Acct: [id number] Name: KATHERIN MARTIN Rep #: [id number] : 1940 76 From: Casa Puentes MD Attending Dr: Nathaniel Cuellar DO Status: DIS JUWAN Ordering Dr: Ju Knox DO Date: 05/30/17 Location: [facility] Sex: F C Admitted: 05/30/17 Test Reason : CP Blood Pressure : / mmHG Vent. Rate : 084 BPM Atrial Rate : 084 BPM P-R Int : 160 ms QRS Dur : 078 ms QT Int : 378 ms P-R-T Axes : 054 002 080 degrees QTc Int : 446 ms Normal sinus rhythm Nonspecific T wave abnormality Abnormal ECG Confirmed by DELORIS KEE, CASA ([id number]), book editor JIMMY HART ([id number]) on 06/04/2017 2:11:47 PM Referred By: RU Confirmed By:CASA PUENTES MD 06/04/17 1411 Date Casa Puentes MD CC: Nathaniel Cuellar DO; Moo Reaves MD; Ju Knox DO Signed DISCHARGE SUMMARY Observed: 06/04/2017 Status: F Source: JAMIE 9:47 AM [facility] REPOSITORY [facility] Medical Records Department [address] [place] [address] Discharge Summary 06/03/17949 MR#: [id number] Acct: [id number] Name: KATHERIN MARTIN Rep #: [id number] : 1940 76 From: Aida DELONG PCP: Moo Reaves MD Status: ADM JUWAN Y Location: [place] [address]-1 ADDENDUM by SINDI Walters on 06/04/17 at 0947 Code Visit Discharge delayed due to obtaining pre-CERT. Patient discharged 06/04/17 to TCU. General: Alert, Oriented x3, Cooperative, No apparent distress HEENT: Atraumatic, PERRLA, EOMI, Normocephalic Neck: Supple, No JVD, Negative Carotid Bruits Lungs: Clear to auscultation, Normal air movement Cardiovascular: Regular rate, Regular Rhythm, Normal S1, Normal S2, No murmurs Abdomen: Bowel Sounds Present, Soft, Non Tender, Non-Distended Extremities: No clubbing, No cyanosis, Capillary Refill Less than 3 Seconds, Edema - R knee Skin: No rashes, No breakdown, - - Right knee with diffuse ecchymosis Musculoskeletal: Tenderness - R knee Neurological: Cranial nerves II-XII grossly intact, Neuro grossly intact Psych/Mental Status: Normal Affect, Appropriate Patient seen and examined prior to discharge. Physical assessment as noted above. Patient is stable for discharge to transitional care unit for further therapy. 06/04/17946 <Electronically signed by Aida DELONG> Date Aida Walters cc: SINDI Walters; Moo Reaves MD * Signed <Aida Walters - Last Filed: 06/03/17 09:57> Discharge Date and Diagnosis Date of Admission: 05/30/17 Date of Discharge: 06/03/17 - Primary Discharge Diagnosis Active and Suspected Problems (Last Updated 04/23/17 @ 09:56 by Armida Neal) 1. Altered mental status, acute encephalopathy secondary to polypharmacy 2. Chest pain-ACS ruled out. 3. Physical debility status post recent right meniscal surgery 4. Recent right lower extremity DVT - Secondary Discharge Diagnosis Chronic Problems (Last Updated 04/23/17 @ 09:56 by Armida Neal) Right knee meniscus surgery (Chronic) Hyperlipidemia (Chronic) Osteoarthritis (Chronic) Hypertension (Chronic) Type 2 diabetes mellitus (Chronic) Hospital Course and Treatment Imaging Results: Diagnostic Data Chest X-Ray 05/30/17 09:37 IMPRESSION: No acute abnormality is present. Electronically Signed: Uvaldo Biswas MD at 11:23 EDT Tel [phone], Service support , Brain CT 05/30/17 10:42 IMPRESSION: Chronic involutional changes of the brain. There is opacification of the sphenoid sinus bilaterally. Electronically Signed: Uvaldo Biswas MD at 11:52 EDT Tel [phone], Service support , Operations: None Procedures: None Summary of Care Provided: Patient is a 76-year-old female admitted 05/30/17 due to altered mental status. She has a past medical history of hyperlipidemia, osteoarthritis, hypertension, type 2 diabetes mellitus, depression, anxiety, recent right knee meniscus surgery. 1. Altered mental status, suspected encephalopathy secondary to polypharmacy-patient states she recently had a few deaths in her family and has been having increased anxiety and depression. Her Cymbalta was increased by primary care physician to 60 mg daily and then decreased back to 30mg. Patient is a poor informant regarding her medications. She is also taking Ambien at night to help her sleep as well as Percocet as needed for pain in which she has received multiple recent prescriptions. She is also on Xanax at bedtime which she states she has been on for approximately 15-20 years. Patient states she has not been taking her medications for 1-2 weeks following surgery due to being out of sorts. She states she normally lays out her medication in a pill dispenser and has not been doing that since her recent surgery. She was started on Seroquel. Cymbalta discontinued. Her mental status is now at baseline. Patient also diagnosed with UTI prior to admission, she completed course of nitrofurantoin. UA and urine culture during admission unremarkable. Brain CT shows chronic changes. Chest x-ray shows no acute abnormality. Ambien is not listed on patient's home medication regimen although she states she takes at home. Recommend discontinuing Ambien at discharge. 2. Chest pain-resolved. Suspected secondary to anxiety. Troponin negative. EKG without evidence of ischemia. 3. Physical debility status post recent right meniscal surgery- patient underwent right knee meniscal surgery 05/15/[address] Walker. Patient states she was told that she will need further repair due to incident prior to admission of patient crawling on knees. Continue outpatient follow-up. TCU at discharge. 4. Recent right lower extremity DVT-occurred following recent right meniscal surgery. Continue Xarelto. 5. Paroxysmal atrial fibrillation-currently sinus rhythm. Continue Cardizem and Xarelto. 6. Type 2 diabetes mellitus-continue home oral regimen. 7. Hypertension-stable, continue current regimen. 8. Hyperlipidemia-not on statin. 9. Osteoarthritis-PRN pain regimen. PT/OT. General: Alert, Oriented x3, Cooperative, No apparent distress HEENT: Atraumatic, PERRLA, EOMI, Normocephalic Neck: Supple, No JVD, Negative Carotid Bruits Lungs: Clear to auscultation, Normal air movement Cardiovascular: Regular rate, Regular Rhythm, Normal S1, Normal S2, No murmurs Abdomen: Bowel Sounds Present, Soft, Non Tender, Non-Distended Extremities: No clubbing, No cyanosis, Capillary Refill Less than 3 Seconds, Edema - R knee Skin: No rashes, No breakdown, - - Right knee with diffuse ecchymosis Musculoskeletal: Tenderness - R knee Neurological: Cranial nerves II-XII grossly intact, Neuro grossly intact Psych/Mental Status: Normal Affect, Appropriate Patient seen and examined prior to discharge. Physical assessment as noted above. Patient is stable for discharge to TCU. This patient was seen by SINDI Hidalgo under the supervision of Dr. Cuellar. Home Medications: Medications to take at Discharge ALPRAZolam [Xanax] 0.5 mg PO QHS 12/11/13 Diltiazem CD [Cardizem CD] 240 mg PO DAILY 12/11/13 Canagliflozin [Invokana] 300 mg PO DAILY 09/12/16 Oxycodone HCl/Acetaminophen [Percocet 5-325] 1 - 2 tablet PO Q6H PRN PRN #56 tablet 05/15/17 Rivaroxaban [Xarelto] 15 mg PO QPM 05/30/17 Sitagliptin Phosphate [Januvia] 100 mg PO DAILY 05/30/17 Quetiapine Fumarate [Seroquel] 25 mg PO QHS tablet 06/03/17 Primary Care Physician: Moo Reaves MD [Primary Care Provider] - Please follow up with your Primary Care Physician in: 1 Week Please Follow Up With: Mendy Walker DO When: 1 Week [facility]position[facility] facility Minutes spent on discharge:: 35 Patient Condition:: Stable Medical Necessity - Tobacco Use Smoking Status: Never smoker Tobacco Use: Non-smoker Meaningful Use Info Meaningful Use Diagnoses (Choose all that apply): None applicable <Nathaniel Cuellar - Last Filed: 06/03/17 11:10> Discharge Date and Diagnosis - Secondary Discharge Diagnosis Chronic Problems (Last Updated 04/23/17 @ 09:56 by Armida Neal) Right knee meniscus surgery (Chronic) Hyperlipidemia (Chronic) Osteoarthritis (Chronic) Hypertension (Chronic) Type 2 diabetes mellitus (Chronic) Hospital Course and Treatment Operations: None Procedures: None Summary of Care Provided: The patient is a 76 year old F [] Discharge Diet: No Restrictions Discharge Activity: Return to Normal Activity Call your doctor if you observe: Fever of 101 or Higher, Shortness of breath Disposition: [facility] facility Minutes spent on discharge:: 35 Patient Condition:: Stable Medical Necessity - Tobacco Use Smoking Status: Never smoker Tobacco Use: Non-smoker Meaningful Use Info Meaningful Use Diagnoses (Choose all that apply): None applicable Code Visit Inpatient E AND M: [id number] Disch Hosp 06/03/17 0958 <Electronically signed by Aida ACEVEDOC> Date Aida ACEVEDOC 06/03/17 1110<Electronically signed by Nathaniel Cuellar DO> Cosigner Signature (if applicable): Date Nathaniel Cuellar DO CC: SINDI Walters; Moo Reaves MD Signed BEDSIDE GLUCOSE Collected: 06/04/2017 Status: F Source: JAMIE 6:36 AM [facility] REPOSITORY TYPE CODE TESTS RESULT OUT OF REFERENCE UNITS RANGE LAB L501.080 70-110 mg/dL High BEDSIDE GLU 153 Result Comment: MANAGEMENT OF PATIENT CARE PER NURSING PROTOCOL Performed By: #### L501.080 #### [facility] Point of Care [address] [place] [address] BEDSIDE GLUCOSE Collected: 06/03/2017 Status: F Source: JAMIE 9:39 PM [facility] REPOSITORY TYPE CODE TESTS RESULT OUT OF REFERENCE UNITS RANGE LAB L501.080 70-110 mg/dL High BEDSIDE GLU 223 Result Comment: MANAGEMENT OF PATIENT CARE PER NURSING PROTOCOL Performed By: #### L501.080 #### [facility] Point of Care [address] [place] [address] BEDSIDE GLUCOSE Collected: 06/03/2017 Status: F Source: JAMIE 4:35 PM [facility] REPOSITORY TYPE CODE TESTS RESULT OUT OF REFERENCE UNITS RANGE LAB L501.080 70-110 mg/dL High BEDSIDE GLU 191 Result Comment: MANAGEMENT OF PATIENT CARE PER NURSING PROTOCOL Performed By: #### L501.080 #### [facility] Point of Care [address] [place] [address] BEDSIDE GLUCOSE Collected: 06/03/2017 Status: F Source: JAMIE 12:48 PM [facility] REPOSITORY TYPE CODE TESTS RESULT OUT OF REFERENCE UNITS RANGE LAB L501.080 70-110 mg/dL High BEDSIDE GLU 142 Result Comment: MANAGEMENT OF PATIENT CARE PER NURSING PROTOCOL Performed By: #### L501.080 #### [facility] Point of Care [address] [place] [address] TRANSFER TO [facility] Observed: 06/03/2017 Status: F Source: JAMIE CARE 11:11 AM [facility] REPOSITORY [facility] Medical Records Department [address] [facility] [address] Transfer to [facility] Care MR#: [id number] Acct: [id number] Name: KATHERIN MARTIN Rep #: [id number] : 1940 76 From: Aida ACEVEDOC PCP: Moo Reaves MD Status: ADM JUWAN KATHERIN MARTIN (Patient) (Health Ins. Claim No.) (Day of Discharge to Facility) Certification of patient admission REQUIRED AT TIME OF ADMISSION. I CERTIFY THAT POST-HOSPITAL ECF SERVICES ARE REQUIRED TO BE GIVEN ON AN IN-PATIENT BASIS BECAUSE OF THE ABOVE NAMED PATIENT'S NEED FOR RESIDENTIAL CARE ON A CONTINUING BASIS FOR THE CONDITION(S) FOR WHICH HE/SHE WAS RECEIVING IN-PATIENT HOSPITAL SERVICES PRIOR TO HIS/HER TRANSFER TO THE F. 06/03/17 1111 <Electronically signed by Nathaniel Cuellar DO> Date: <Aida Walters - Last Filed: 06/03/17 09:50> - Diet 05/31/17 10:40 Diet: Regular Diet Is pt able to select menu?: Yes - Routine Orders/Code Status Suppository Type: Dulcolax 10mg Suppository Frequency: Daily PRN Routine Lab Work: CBC, BMP, - - Q Week Code Status: Full Code - Wound(s) RIGHT KNEE Wound Type: Surgical Incision - Suggestions for Active Care Change Position every (hours): 2 Times a day to sit in chair: 3 - Therapies Weight Bearing: Weight bearing as tolerated Extremity Affected:: Right Lower Physical Therapy: Eval and Treat Occupational Therapy: Eval and Treat - Allergies/Procedures Done in Hospital Allergies/Adverse Reactions: Allergies ramelteon [From Rozerem] Allergy (Verified 05/30/17 09:30) Other bupropion Adverse Reaction (Verified 05/30/17 09:30) Other UNKNOWN bupropion HCl [From Wellbutrin] Adverse Reaction (Verified 05/30/17 09:30) Other UNKNOWN dexfenfluramine HCl [From Redux] Adverse Reaction (Verified 05/30/17 09:30) Unknown hydrochlorothiazide Adverse Reaction (Verified 05/30/17 09:30) Other UNKNOWN ketorolac tromethamine [From Toradol] Adverse Reaction (Verified 05/30/17 09:30) Itching oxaprozin [From Daypro] Adverse Reaction (Verified 05/30/17 09:30) Other UNKNOWN Procedures: None - Type of Care/Length of Stay Estimated LOS: Convalescent Care Less Than 30 days Type of Care Needed: Skilled Rehab Potential: Good Prognosis: Good - Additional Orders/Day of Discharge H AND P will serve as current which was dated: 05/30/17 Day of Discharge: 06/03/17 - Follow Up Care Primary Care Physician: Moo Reaves MD [Primary Care Provider] - Please follow up with your Primary Care Physician in: 1 Week Please Follow Up With: Mendy Walker DO When: 1 Week <Nathaniel Cuellar - Last Filed: 06/03/17 11:11> - Diet 05/31/17 10:40 Diet: Regular Diet Is pt able to select menu?: Yes - Routine Orders/Code Status Suppository Type: Dulcolax 10mg Suppository Frequency: Daily PRN Routine Lab Work: CBC, BMP, - - Wound(s) RIGHT KNEE Wound Type: Surgical Incision - Therapies Physical Therapy: Eval and Treat Occupational Therapy: Eval and Treat - Allergies/Procedures Done in Hospital Procedures: None - Type of Care/Length of Stay Estimated LOS: Convalescent Care Less Than 30 days Type of Care Needed: Skilled Rehab Potential: Good Prognosis: Good 06/03/17 0950 <Electronically signed by Aida DELONG> Date Aida DELONG 06/03/17 1111<Electronically signed by Nathaniel Cuellar DO> Cosigner Signature: Date Nathaniel Cuellar DO CC: Moo Reaves MD BEDSIDE GLUCOSE Collected: 06/03/2017 Status: F Source: JAMIE 6:29 AM [facility] REPOSITORY TYPE CODE TESTS RESULT OUT OF REFERENCE UNITS RANGE LAB L501.080 70-110 mg/dL High BEDSIDE GLU 189 Result Comment: Insulin Given MANAGEMENT OF PATIENT CARE PER NURSING PROTOCOL Performed By: #### L501.080 #### [facility] Point of Care [address] [place] [address] BEDSIDE GLUCOSE Collected: 06/02/2017 Status: F Source: JAMIE 9:16 PM [facility] REPOSITORY TYPE CODE TESTS RESULT OUT OF REFERENCE UNITS RANGE LAB L501.080 70-110 mg/dL High BEDSIDE GLU 191 Result Comment: Insulin Given MANAGEMENT OF PATIENT CARE PER NURSING PROTOCOL Performed By: #### L501.080 #### [facility] Point of Care [address] [place] [address] BEDSIDE GLUCOSE Collected: 06/02/2017 Status: F Source: JAMIE 4:45 PM [facility] REPOSITORY TYPE CODE TESTS RESULT OUT OF REFERENCE UNITS RANGE LAB L501.080 70-110 mg/dL High BEDSIDE GLU 169 Result Comment: MANAGEMENT OF PATIENT CARE PER NURSING PROTOCOL Performed By: #### L501.080 #### [facility] Point of Care [address] [place] [address] BEDSIDE GLUCOSE Collected: 06/02/2017 Status: F Source: JAMIE 11:15 AM [facility] REPOSITORY TYPE CODE TESTS RESULT OUT OF REFERENCE UNITS RANGE LAB L501.080 70-110 mg/dL High BEDSIDE GLU 274 Result Comment: MANAGEMENT OF PATIENT CARE PER NURSING PROTOCOL Performed By: #### L501.080 #### [facility] Point of Care [address] [place] [address] BEDSIDE GLUCOSE Collected: 06/02/2017 Status: F Source: JAMIE 6:40 AM [facility] REPOSITORY TYPE CODE TESTS RESULT OUT OF REFERENCE UNITS RANGE LAB L501.080 70-110 mg/dL High BEDSIDE GLU 154 Result Comment: Insulin Given MANAGEMENT OF PATIENT CARE PER NURSING PROTOCOL Performed By: #### L501.080 #### [facility] Point of Care [address] [place] [address] BEDSIDE GLUCOSE Collected: 06/01/2017 Status: F Source: JAMIE 9:33 PM [facility] REPOSITORY TYPE CODE TESTS RESULT OUT OF REFERENCE UNITS RANGE LAB L501.080 70-110 mg/dL High BEDSIDE GLU 170 Result Comment: Insulin Given MANAGEMENT OF PATIENT CARE PER NURSING PROTOCOL Performed By: #### L501.080 #### [facility] Point of Care [address] [place] [address] BEDSIDE GLUCOSE Collected: 06/01/2017 Status: F Source: JAMIE 5:14 PM [facility] REPOSITORY TYPE CODE TESTS RESULT OUT OF REFERENCE UNITS RANGE LAB L501.080 70-110 mg/dL High BEDSIDE GLU 224 Result Comment: MANAGEMENT OF PATIENT CARE PER NURSING PROTOCOL Performed By: #### L501.080 #### [facility] Point of Care [address] [place] [address] BEDSIDE GLUCOSE Collected: 06/01/2017 Status: F Source: JAMIE 1:46 PM [facility] REPOSITORY TYPE CODE TESTS RESULT OUT OF REFERENCE UNITS RANGE LAB L501.080 70-110 mg/dL High BEDSIDE GLU 163 Result Comment: MANAGEMENT OF PATIENT CARE PER NURSING PROTOCOL Performed By: #### L501.080 #### [facility] Point of Care [address] [place] [address] BEDSIDE GLUCOSE Collected: 06/01/2017 Status: F Source: JAMIE 11:08 AM [facility] REPOSITORY TYPE CODE TESTS RESULT OUT OF REFERENCE UNITS RANGE LAB L501.080 70-110 mg/dL High BEDSIDE GLU 186 Result Comment: MANAGEMENT OF PATIENT CARE PER NURSING PROTOCOL Performed By: #### L501.080 #### [facility] Point of Care [address] [place] [address] BEDSIDE GLUCOSE Collected: 06/01/2017 Status: F Source: JAMIE 6:59 AM [facility] REPOSITORY TYPE CODE TESTS RESULT OUT OF REFERENCE UNITS RANGE LAB L501.080 70-110 mg/dL High BEDSIDE GLU 145 Result Comment: MANAGEMENT OF PATIENT CARE PER NURSING PROTOCOL Performed By: #### L501.080 #### [facility] Point of Care [address] [place] [address] BEDSIDE GLUCOSE Collected: 05/31/2017 Status: F Source: JAMIE 9:12 PM [facility] REPOSITORY TYPE CODE TESTS RESULT OUT OF REFERENCE UNITS RANGE LAB L501.080 70-110 mg/dL High BEDSIDE GLU 174 Result Comment: Insulin Given MANAGEMENT OF PATIENT CARE PER NURSING PROTOCOL Performed By: #### L501.080 #### [facility] Point of Care [address] [place] [address] BEDSIDE GLUCOSE Collected: 05/31/2017 Status: F Source: JAMIE 4:14 PM [facility] REPOSITORY TYPE CODE TESTS RESULT OUT OF REFERENCE UNITS RANGE LAB L501.080 70-110 mg/dL High BEDSIDE GLU 196 Result Comment: MANAGEMENT OF PATIENT CARE PER NURSING PROTOCOL Performed By: #### L501.080 #### [facility] Point of Care [address] [place] [address] BEDSIDE GLUCOSE Collected: 05/31/2017 Status: F Source: JAMIE 11:24 AM [facility] REPOSITORY TYPE CODE TESTS RESULT OUT OF REFERENCE UNITS RANGE LAB L501.080 70-110 mg/dL High BEDSIDE GLU 135 Result Comment: MANAGEMENT OF PATIENT CARE PER NURSING PROTOCOL Performed By: #### L501.080 #### [facility] Point of Care [address] [place] [address] BEDSIDE GLUCOSE Collected: 05/31/2017 Status: F Source: JAMIE 6:49 AM [facility] REPOSITORY TYPE CODE TESTS RESULT OUT OF REFERENCE UNITS RANGE LAB L501.080 70-110 mg/dL High BEDSIDE GLU 200 Result Comment: Insulin Given MANAGEMENT OF PATIENT CARE PER NURSING PROTOCOL Performed By: #### L501.080 #### [facility] Point of Care [address] [place] [address] CBC W/DIFF, AUTOMATED Collected: 05/31/2017 Status: F Source: JAMIE 6:05 AM [facility] REPOSITORY TYPE CODE TESTS RESULT OUT OF RANGE REFERENCE UNITS LAB L100.1000 4.4-11.0 K/mm3 Normal WBC 6.4 LAB L100.1200 4.2-5.4 M/mm3 Low RBC 3.87 LAB L100.1300 12.0-15.0 g/dl Normal HGB 12.0 LAB L100.1400 37-47 % Low HCT 36.9 LAB L100.1500 81-99 fL Normal MCV 95.3 LAB L100.1600 27.0-32.0 pg Normal MCH 31.0 LAB L100.1700 32-36 g/gl Normal MCHC 32.5 LAB L100.1810 11.6-14.6 % High RDW CV 14.9 LAB L100.1820 35.1-43.9 fl High RDW SD 50.0 LAB L100.1900 150-450 K/mm3 Normal PLT 183 LAB L100.2000 6.2-12.0 fl Normal MPV 9.5 LAB L100.2100 47-70 % Normal NEUT% 56.6 LAB L100.2200 19-41 % Normal LY% 34.6 LAB L100.2300 0-10 % Normal MONO% 6.9 LAB L100.2400 0-5 % Normal EO% 0.8 LAB L100.2500 0-1 % Normal BASO% 0.3 LAB L100.2550 0.0-0.9 % Normal IM GRAN % 0.800 Result Comment: IG% - Immature Granulocytes (promyelocytes, myelocytes and metamyelocytes) > 1% indicates that a LEFT SHIFT is Present. LAB L100.2620 2.0-7.7 X10 3/uL Normal Absolute Neut 3.6 LAB L100.2720 0.83-4.51 X10 3/ul Normal Absolute Lymph 2.20 Performed By: #### L100.0100 #### [facility] [address] [place], [place], [id number] BASIC METABOLIC Collected: 05/31/2017 Status: F Source: JAMIE PROFILE (BMP) 6:05 AM [facility] REPOSITORY TYPE CODE TESTS RESULT OUT OF RANGE REFERENCE UNITS LAB L501.0100 74-106 mg/dL High GLU 123 Result Comment: Fasting Glucose result from 100 to 125 mg/dL suggests IMPAIRED HOMEOSTASIS per A.D.A. criteria. Please note revised GLUCOSE reference range effective 2017. LAB L501.1000 7-18 mg/dL Normal BUN 11 LAB L501.1100 0.55-1.02 mg/dL Low CREAT,SERUM 0.53 Result Comment: The validity of the calculated GFR AND GFRAA in patients over 70 years has not been determined. Clinical correlation is essential. LAB L501.1110 >60 mL/min Normal EST GFR 118 Result Comment: Non- GFR Calc LAB L501.1115 >60 mL/min Normal EST GFR - AA 143 Result Comment: GFR Calc LAB L501.1255 ml/min Normal Estimated CRCL 40.21 LAB L501.1300 10-20 RATIO High BUN/CRE 20.6 LAB L501.2200 8.5-10 mg/dL Normal .1 CA 9.6 LAB L501.5300 136-14 mmol/L Normal 5 NA 143 LAB L501.5600 3.5-5. mmol/L Normal 1 K 3.8 LAB L501.5900 98-107 mmol/L High CL 111 LAB L501.6100 21.0-3 mmol/L Normal 2.0 CO2 25.0 LAB L501.6200 5-15 Normal GAP 7 Performed By: #### L500.2500 #### [facility] [address] [facility]. [place], [place], [address] TROPONIN-I Collected: 05/31/2017 Status: F Source: DRUMMOND 12:51 AM [facility] REPOSITORY Order Comment: 'TROP' Serial specimen #1, #2, #3, or #4: 4 TYPE CODE TESTS RESULT OUT OF RANGE REFERENCE UNITS LAB L501.4010 <0.06 ng/mL Normal < 0.02 TROPONIN-I Result Comment: TROPONIN-I EXPECTED VALUES <0.05 NEGATIVE 0.06 - 0.59 AT RISK OF ND > OR = 0.60 SUGGEST ND Performed By: #### L501.4010 #### [facility] [address] [place], [place], [id number] BEDSIDE GLUCOSE Collected: 05/30/2017 Status: F Source: DRUMMOND 9:42 PM [facility] REPOSITORY TYPE CODE TESTS RESULT OUT OF REFERENCE UNITS RANGE LAB L501.080 70-110 mg/dL High BEDSIDE GLU 128 Result Comment: MANAGEMENT OF PATIENT CARE PER NURSING PROTOCOL Performed By: #### L501.080 #### [facility] Point of Care [address] [place] [address] TROPONIN-I Collected: 05/30/2017 Status: F Source: JAMIE 6:56 PM [facility] REPOSITORY Order Comment: 'TROP' Serial specimen #1, #2, #3, or #4: 3 TYPE CODE TESTS RESULT OUT OF RANGE REFERENCE UNITS LAB L501.4010 <0.06 ng/mL Normal < 0.02 TROPONIN-I Result Comment: TROPONIN-I EXPECTED VALUES <0.05 NEGATIVE 0.06 - 0.59 AT RISK OF ND > OR = 0.60 SUGGEST ND Performed By: #### L501.4010 #### [facility] [place], [address] BEDSIDE GLUCOSE Collected: 05/30/2017 Status: F Source: JAMIE 4:47 PM [facility] REPOSITORY TYPE CODE TESTS RESULT OUT OF REFERENCE UNITS RANGE LAB L501.080 70-110 mg/dL High BEDSIDE GLU 128 Result Comment: MANAGEMENT OF PATIENT CARE PER NURSING PROTOCOL Performed By: #### L501.080 #### [facility] Point of Care [address] [place] [address]. [place] [address] TROPONIN-I Collected: 05/30/2017 Status: F Source: JAMIE 3:31 PM [facility] REPOSITORY Order Comment: 'TROP' Serial specimen #1, #2, #3, or #4: 2 TYPE CODE TESTS RESULT OUT OF RANGE REFERENCE UNITS LAB L501.4010 <0.06 ng/mL Normal < 0.02 TROPONIN-I Result Comment: TROPONIN-I EXPECTED VALUES <0.05 NEGATIVE 0.06 - 0.59 AT RISK OF ND > OR = 0.60 SUGGEST ND Performed By: #### L501.4010 #### [facility] [address] [place], [address] HISTORY AND PHYSICAL Observed: 05/30/2017 Status: F Source: JAMIE EXAM 3:11 [facility] REPOSITORY [facility] Medical Records Department [address] [place] [address] History and Physical 05/30/17 1419 MR#: [id number] Acct: [id number] Name: KATHERIN MARTIN Rep #: [id number] : 1940 76 From: Ozzie Guerrier MD PCP: Moo Reaves MD Status: ADM JUWAN Y Location: [place] [address] Problem List (1) Altered mental status, unspecified Status: Acute (2) Afib Status: Acute (3) SBO (small bowel obstruction) Status: Acute (4) Hyperlipidemia Status: Chronic (5) Osteoarthritis Status: Chronic (6) Hypertension Status: Chronic (7) Type 2 diabetes mellitus Status: Chronic (8) Right leg DVT Status: Acute Qualifiers: Chronicity: acute (9) Right knee meniscus surgery Status: Chronic History of Present Illness Date of Admission: 05/30/17 Chief Complaint: Altered mental status for few days The patient is a 76 year old F with recent history of right knee meniscal surgery on 05/15/2017 and subsequent development of right lower extremity DVT on Xarelto was brought into ER for altered mental status, confusion and disorientation feeling anxiety for last 2-3 days. As per the family she was recently started on Cymbalta probably 60 mg daily along with she is on Percocet 1-2 tablets q. 6 hourly and Ambien at night. Patient also recently diagnosed with UTI yesterday and she took 1 tablet of nitrofurantoin. Patient has multiple vague complaints including some chest tightness all over aches and pain which are nondescriptive/nonspecific or shortness of breath, most probably related to anxiety. In ED, her workup was was unremarkable. Chest x-ray and CT had did not show acute change. [] Past Medical History Past Medical History (Chronic Problems): Chronic Problems (Last Updated 04/23/17 @ 09:56 by Armida Neal) Right knee meniscus surgery (Chronic) Hyperlipidemia (Chronic) Osteoarthritis (Chronic) Hypertension (Chronic) Type 2 diabetes mellitus (Chronic) Allergies ramelteon [From Rozerem] Allergy (Verified 05/30/17 09:30) Other bupropion Adverse Reaction (Verified 05/30/17 09:30) Other UNKNOWN bupropion HCl [From Wellbutrin] Adverse Reaction (Verified 05/30/17 09:30) Other UNKNOWN dexfenfluramine HCl [From Redux] Adverse Reaction (Verified 05/30/17 09:30) Unknown hydrochlorothiazide Adverse Reaction (Verified 05/30/17 09:30) Other UNKNOWN ketorolac tromethamine [From Toradol] Adverse Reaction (Verified 05/30/17 09:30) Itching oxaprozin [From Daypro] Adverse Reaction (Verified 05/30/17 09:30) Other UNKNOWN Home Medications: Ambulatory Orders Medication Instructions Recorded ALPRAZolam [Xanax] 0.5 mg PO QHS 12/11/13 Surgical History: - - 2014 had bowel resection, also had whipple procedure in [place] 2007-, tubal ligation, carpal tunnel in wrist, shoulder and hand surgery hysterectemy, bladder suspension, wall between vagina and colon.cholecystectemy. Smoking Status: Never smoker - *Family History Paternal History Items: - - afib Review of Systems Constitutional: Reports: Weakness, Fatigue. Denies: Chills, Fever, Weight Change HEENT: Denies: Head Aches, Sinus Congestion, Sinus Drainage Cardiovascular: Reports: Chest Tightness. Denies: Chest Pain, Palpitations Respiratory: Denies: Cough, Shortness of breath at rest, Sputum production Gastrointestinal: Denies: Abdominal Pain, Nausea, Vomiting Genitourinary: Denies: Dysuria Musculoskeletal: Reports: Joint Pain. Denies: Joint Tenderness Skin: Denies: Rash, Wounds Neurological: Denies: Numbness, Tingling, Focal weakness Psychiatric: Reports: Anxiety. Denies: Depression, Homicidal Ideations, Suicidal Ideations Hematologic/ Lymphatic: Denies: Easy Bruising, Easy Bleeding VTE Information - Inpt Only VTE Present on Admission: No VTE Mechan Device Prophylaxis: None VTE Pharm Prophylaxis ordered?: Yes Patient Problems: Active and Suspected Problems (Last Updated 04/23/17 @ 09:56 by Armida Neal) Altered mental status, unspecified (Acute) Right leg DVT (Acute) - Physical Exam General: Alert, Oriented x3, Cooperative HEENT: Atraumatic, PERRLA, EOMI, Normocephalic Neck: Supple, No JVD, Negative Carotid Bruits Lungs: Clear to auscultation, No rhonchi Cardiovascular: Regular rate, Regular Rhythm, Normal S1, Normal S2, No murmurs Abdomen: Bowel Sounds Present, Soft, Non Tender, Non-Distended Extremities: Capillary Refill Less than 3 Seconds, Edema Skin: No rashes, No breakdown Musculoskeletal: Arthritic Changes Neurological: Cranial nerves II-XII grossly intact, Neuro grossly intact, - Psych/Mental Status: Normal Affect, Appropriate Vital Signs Temp Pulse Resp BP Pulse Ox 98.2 F 88 18 154/85 H 96 05/30/17 09:24 05/30/17 14:00 05/30/17 14:00 05/30/17 14:00 05/30/17 14:00 Oxygen Delivery Method Room Air Assessment/Plan Active and Suspected Problems (Last Updated 04/23/17 @ 09:56 by Armida Neal) Altered mental status, unspecified (Acute) Right leg DVT (Acute) The patient is a 76 year old F with recent history of right knee meniscal surgery on 05/15/2017 and subsequent development of right lower extremity DVT on Xarelto was brought into ER for altered mental status, confusion and disorientation feeling anxiety for last 2-3 days. As per the family she was recently started on Cymbalta probably 60 mg daily along with she is on Percocet 1-2 tablets q. 6 hourly and Ambien at night. Patient also recently diagnosed with UTI yesterday and she took 1 tablet of nitrofurantoin. Patient has multiple vague complaints including some chest tightness all over aches and pain which are nondescriptive/nonspecific or shortness of breath, most probably related to anxiety. In ED, her workup was was unremarkable. Chest x-ray and CT had did not show acute change. 1. Altered in status most probably acute encephalopathy secondary to polypharmacy/anxiety: The patient is being admitted to PCU. Neurochecks. UA is negative except leukocyte esterase 25. Urine culture ordered. Treat the underlying cause 2. Nonspecific chest pain and some shortness of breath related to anxiety: Serial cardiac enzymes to rule out ACS. 3. Recent diagnosis of UTI, right lower leg DVT status post right meniscal surgery: Continue nitrofurantoin. Continue Xarelto. Follow urine culture. PT and OT ordered for difficulty in mobility and right knee arthritis For possible SNF placement 4. Other chronic comorbidities include paroxysmal A. fib, type 2 diabetes mellitus, hypertension, osteoarthritis and dyslipidemia: Home medication reconciliation done. Current EKG shows normal sinus rhythm at 84 bpm. Previous EKG of November 2017 shows normal sinus rhythm. 5. DVT prophylaxis: On Xarelto. Clinical Impression(s) from Imaging Studies Chest X-Ray 05/30/17 09:37 IMPRESSION: No acute abnormality is present. Electronically Signed: Uvaldo Biswas MD at 11:23 EDT Tel [phone], Service support , Brain CT 05/30/17 10:42 IMPRESSION: Chronic involutional changes of the brain. There is opacification of the sphenoid sinus bilaterally. Electronically Signed: Uvaldo Biswas MD at 11:52 EDT Tel [phone], Service support , Laboratory Results 05/30/17 10:50: WBC 11.0, RBC 4.25, Hgb 13.0, Hct 40.0, MCV 94.1, MCH 30.6, MCHC 32.5, RDW 14.9 H, RDW Differential 50.4 H, Plt Count 161, MPV 10.1, Immature Gran % (Auto) 0.500, Neut % (Auto) 81.9 H, Lymph % (Auto) 13.0 L, [place] % (Auto) 4.1, Eos % (Auto) 0.4, Baso % (Auto) 0.1, Absolute Neuts (auto) 9.0 H, Absolute Lymphs (auto) 1.43, Total Counted Not Reportable 05/30/17 10:50: Sodium 140, Potassium 3.8, Chloride 107, Carbon Dioxide 26.0, Anion Gap 7, BUN 11, Creatinine 0.65, Estim Creat Clear Calc 41.97, Est GFR (MDRD) Af Amer 114, Est GFR (MDRD) Non-Af 94, BUN/Creatinine Ratio 16.9, Glucose 141 H, Calcium 9.5, Troponin I < 0.02 05/30/17 12:05: Urine Color Yellow, Urine Clarity Clear, Urine pH 7.0, Ur Specific [place] 1.010, Urine Protein Negative, Urine Glucose (UA) 1000 H, Urine Ketones 15 H, Urine Occult Blood 10 H, Urine Nitrite Negative, Urine Bilirubin Negative, Urine Urobilinogen Normal, Ur Leukocyte Esterase 25 H, Urine RBC 0-5 SEEN, Urine WBC 0-5 SEEN, Ur Squamous Epith Cells 0 SEEN, Urine Bacteria 0 SEEN, Urine Mucus 0 SEEN Code Visit OBSV Renee AND M: [id number] Initial observation care L3 05/30/17 1511 <Electronically signed by Ozzie Guerrier MD> Date Ozzie Guerrier MD Cosigner Signature: Date (if applicable) CC: Moo Reaves MD; Ozzie Guerrier MD Signed EMERGENCY DEPARTMENT Observed: 05/30/2017 Status: F Source: [place] SUMMARY 1:34 PM [facility] REPOSITORY [facility] Medical Records Department [address] [place] [address] Emergency Department Summary 05/30/17 1326 MR#: [id number] Acct: [id number] Name: KATHERIN MARTIN Rep #: [id number] : 1940 76 From: Ju Knox DO PCP: Moo Reaves MD Status: REG ER - ER Visit Summary Date of Service: 05/30/17 Chief Complaint: [Confusion and shortness of breath] History of Present Illness: The patient is a 76 F [presents to the emergency department with confusion this morning. Patient states that she was seen by physician at [facility] yesterday and diagnosed with a urinary tract infection and started on nitrofurantoin. Patient complains of nausea and some shortness of breath today. Patient complained of some sweats. Patient lives alone. Patient states she cannot remember what medications she is supposed to take. Patient apparently had a surgery on her right knee for torn meniscus on May 15. Patient subsequently developed a DVT and was started on Xarelto. Patient tells me she has been taking her Xarelto regularly. Patient scrubs a mild chest discomfort that she describes as a pressure. Patient feels slightly short of breath. Patient thinks this is her anxiety acting up.] Physical Examination: [HEENT-PERRLA, EOMI. Cranial nerves II through XII grossly intact. TMs clear. Mucous membranes moist. No adenopathy. Cardiovascular-regular rate and rhythm without murmur or ectopy Lungs-clear to auscultation, chest wall stable without crepitus or subcu emphysema Abdomen-normoactive bowel sounds, soft, nontender, no rebound or rigidity, no peritoneal signs. Extremities-intact 4, normal range of motion, normal pulses, atraumatic] Test Results: [CT scan of the brain without contrast showed chronic involutional changes otherwise nothing acute. CBC with differential was unremarkable. Chemistries unremarkable. Urinalysis was normal. Troponin was less than 0.02. EKG shows sinus rhythm with a ventricular rate of 84 bpm with some nonspecific ST changes and chest x-ray showed nothing acute.] Emergency Department Course and Treatment: [Patient did receive 1 OxyIR tablet for her knee pain as patient normally takes Percocet every 6 hours.] Treatment Plan: Admit for further workup and evaluation of confusion. It is possible her confusion may be medication related. Family is concerned about patient being able to care for herself and are asking about possibility for going to a rehabilitation facility. [] Disposition: [Admit] Impression: [Confusion-etiology uncertain Chest pain-resolved] This note was generated with [employer] dictation software. It may contain incorrect words, spelling, and punctuation that were not noted in review of the chart prior to signing ED Disposition - Plan for ED Patient: Chief Complaint: Mental Status Change Referrals: Moo Reaves MD [Primary Care Provider] - What to do if you have Problems For any increased pain, shortness of breath, bleeding, nausea or vomiting, chest pain, or any unexpected problems, contact your Primary Care Provider. Call [facility] ([phone]) or report to the closest Emergency Room. Call 911 if necessary. 05/30/17 1334 <Electronically signed by Ju Knox DO> Date Ju Knox DO Cosigner Signature (If Indicated): Date CC: Moo Reaves MD URINALYSIS, COMPLETE Collected: 05/30/2017 Status: F Source: JAMIE 12:05 PM [facility] REPOSITORY Order Comment: Order Date: 05/30/17 How was Urine Obtained? CATHETER SPECIMEN TYPE CODE TESTS RESULT OUT OF RANGE REFERENCE UNITS LAB L400.3000 Yellow COLOR Normal Yellow LAB L400.3050 Clear Normal CLARITY Clear LAB L400.3200 Normal mg/dl High GLUCOSE, UR 1000 LAB L400.3300 Negative mg/dL Normal BILIRUBIN URINE Negative LAB L400.3400 Negative mg/dl High 15 KETONE UR LAB L400.3465 1.002-1.030 Normal SP.GR. DIPSTX 1.010 LAB L400.3550 5.0 - 8.0 pH UR Normal 7.0 LAB L400.3600 Negative mg/dl PROT Normal DIPSTX Negative LAB L400.3700 Normal mg/dl Normal UROBILI Normal LAB L400.3750 Negative Normal NITRITE UR Negative LAB L400.3780 Negative /ul High 10 OCCULT BLOOD-UR LAB L400.3800 Negative /ul High LEUK 25 ESTERASE LAB L400.4050 0-5 /hpf WBC Normal 0-5 SEEN LAB L400.4100 0-5 /hpf Normal RBC-UA 0-5 SEEN LAB L400.4150 5-10 /hpf SQUAM 0 Normal EPI SEEN LAB L400.4300 None Seen /hpf 0 Normal BACTERIA SEEN LAB L400.4350 <or=2+ /hpf 0 Normal MUCUS, URINE SEEN Performed By: #### L400.0001 #### [facility] [address] [place], [place], [address] Observed: 05/30/2017 Status: F Source: JAMIE CULTURE, URINE 12:05 PM [facility] REPOSITORY Order Date: 05/30/17 Urine Culture Culture exhibits no growth. Performed By: #### M100.0650 #### [facility] [address] [place], [address] CBC W/DIFF, AUTOMATED Collected: 05/30/2017 Status: F Source: JAMIE 10:50 AM [facility] REPOSITORY TYPE CODE TESTS RESULT OUT OF RANGE REFERENCE UNITS LAB L100.1000 4.4-11.0 K/mm3 Normal WBC 11.0 LAB L100.1200 4.2-5.4 M/mm3 Normal RBC 4.25 LAB L100.1300 12.0-15.0 g/dl Normal HGB 13.0 LAB L100.1400 37-47 % Normal HCT 40.0 LAB L100.1500 81-99 fL Normal MCV 94.1 LAB L100.1600 27.0-32.0 pg Normal MCH 30.6 LAB L100.1700 32-36 g/gl Normal MCHC 32.5 LAB L100.1810 11.6-14.6 % High RDW CV 14.9 LAB L100.1820 35.1-43.9 fl High RDW SD 50.4 LAB L100.1900 150-450 K/mm3 Normal PLT 161 LAB L100.2000 6.2-12.0 fl Normal MPV 10.1 LAB L100.2100 47-70 % High NEUT% 81.9 LAB L100.2200 19-41 % Low LY% 13.0 LAB L100.2300 0-10 % Normal MONO% 4.1 LAB L100.2400 0-5 % Normal EO% 0.4 LAB L100.2500 0-1 % Normal BASO% 0.1 LAB L100.2550 0.0-0.9 % Normal IM GRAN % 0.500 Result Comment: IG% - Immature Granulocytes (promyelocytes, myelocytes and metamyelocytes) > 1% indicates that a LEFT SHIFT is Present. LAB L100.2620 2.0-7.7 X10 3/uL High Absolute Neut 9.0 LAB L100.2720 0.83-4.51 X10 3/ul Normal Absolute Lymph 1.43 Performed By: #### L100.0100 #### [facility] [address] [place], [address] BASIC METABOLIC Collected: 05/30/2017 Status: F Source: JAMIE PROFILE (BMP) 10:50 AM [facility] REPOSITORY Order Comment: 'TROP' Serial specimen #1, #2, #3, or #4: 1 TYPE CODE TESTS RESULT OUT OF RANGE REFERENCE UNITS LAB L501.0100 74-106 mg/dL High GLU 141 Result Comment: Fasting Glucose result greater than or equal to 126 mg/dL suggests DIABETES MELLITUS per A.D.A. criteria. Please note revised GLUCOSE reference range effective 2017. LAB L501.1000 7-18 mg/dL Normal BUN 11 LAB L501.1100 0.55-1.02 mg/dL Normal CREAT,SERUM 0.65 Result Comment: The validity of the calculated GFR AND GFRAA in patients over 70 years has not been determined. Clinical correlation is essential. LAB L501.1110 >60 mL/min Normal EST GFR 94 Result Comment: Non- GFR Calc LAB L501.1115 >60 mL/min Normal EST GFR - AA 114 Result Comment: GFR Calc LAB L501.1255 ml/min Normal Estimated CRCL 41.97 LAB L501.1300 10-20 RATIO Normal BUN/CRE 16.9 LAB L501.2200 8.5-10 mg/dL Normal .1 CA 9.5 LAB L501.5300 136-14 mmol/L Normal 5 NA 140 LAB L501.5600 3.5-5. mmol/L Normal 1 K 3.8 LAB L501.5900 98-107 mmol/L Normal CL 107 LAB L501.6100 21.0-3 mmol/L Normal 2.0 CO2 26.0 LAB L501.6200 5-15 Normal GAP 7 Performed By: #### L500.2500, L501.4010 #### [facility] [address] [facility], [address] TROPONIN-I Collected: 05/30/2017 Status: F Source: [place] 10:50 AM [facility] REPOSITORY Order Comment: 'TROP' Serial specimen #1, #2, #3, or #4: 1 TYPE CODE TESTS RESULT OUT OF RANGE REFERENCE UNITS LAB L501.4010 <0.06 ng/mL Normal < 0.02 TROPONIN-I Result Comment: TROPONIN-I EXPECTED VALUES <0.05 NEGATIVE 0.06 - 0.59 AT RISK OF ND > OR = 0.60 SUGGEST ND Performed By: #### L500.2500, L501.4010 #### [facility] [address] [place], [address] Observed: 05/30/2017 Status: F Source: JAMIE CULTURE, BLOOD (WB) 10:50 AM [facility] REPOSITORY BC No growth in 5 days. Performed By: #### M200.1000 #### [facility] [address] [place], [address] BRAIN/HEAD WITHOUT Observed: 05/30/2017 Status: F Source: JAMIE CONTRAST 10:42 AM [facility] REPOSITORY [facility] Imaging Services [address] [place] [address] Brain/Head without Contrast MR#: [id number] Acct: [id number] Name: KATHERIN MARTIN Rep #: [id number] : 1940 F 76 From: Uvaldo Biswas MD PCP: Moo Reaves MD Status: REG ER Study: Brain/Head without Contrast Date of Exam: 05/30/17 Exam# [id number] Ordering Dr: Ju Knox DO STUDY: CT BRAIN WITHOUT CONTRAST REASON FOR EXAM: Female, 76 years old. Confusion and memory loss. RADIATION DOSAGE (If Supplied By Facility): CTDIvol = ( 44.99 ) mGy, DLP = ( 796.11 ) mGycm TECHNIQUE: Transaxial CT imaging of the brain was performed without administration of intravenous contrast material. Individualized dose optimization techniques were used for this CT. COMPARISON: None. FINDINGS: Normal soft tissue structures. Normal calvarium. There is mild cerebral atrophy with widening of the extra- axial spaces and ventricular dilatation. There are areas of decreased attenuation within the white matter tracts of the supratentorial brain, consistent with microvascular disease changes. Normal basal ganglia and thalami. Normal brainstem. Normal cerebellum. There is no intracranial hemorrhage. There are no findings of an acute ischemic infarction. Atherosclerotic calcification of the cavernous portions of the internal carotid arteries bilaterally. Opacification of the sphenoid sinus bilaterally. CT/Brain/Head without Contrast IMPRESSION: Chronic involutional changes of the brain. There is opacification of the sphenoid sinus bilaterally. Electronically Signed: Uvaldo Biswas MD at 11:52 EDT Tel [phone], Service support , CC: Moo Reaves MD; Ju Knox DO Automation Controls Specialist: Signed Observed: 05/30/2017 Status: F Source: [place] CULTURE, BLOOD (WB) 10:15 AM [facility] REPOSITORY BC No growth in 5 days. Performed By: #### M200.1000 #### [facility] [address] [facility], [address] CHEST 1 VIEW Observed: 05/30/2017 Status: F Source: JAMIE (PORTABLE) 9:38 AM [facility] REPOSITORY [facility] Imaging Services [address] [place] [address] Chest 1 View (Portable) MR#: [id number] Acct: [id number] Name: KATHERIN MARTIN Rep #: [id number] : 1940 F 76 From: Uvaldo Biswas MD PCP: Moo Reaves MD Status: REG ER Study: Chest 1 View (Portable) Date of Exam: 05/30/17 Exam# [id number] Ordering Dr: Ju Knox DO STUDY: X-RAY CHEST REASON FOR EXAM: Female, 76 years old. Chest pain. Confusion. TECHNIQUE: Single AP portable view of the chest. COMPARISON: Comparison is made with prior study dated September 12, 2016. FINDINGS: EKG electrodes are seen. The lungs are clear and expanded. There is no demonstrated pleural abnormality. Normal size heart. Normal mediastinum and deondre. Normal visualized pulmonary arteries. There is atherosclerotic tortuosity of the aortic arch and descending thoracic aorta. Normal visualized thoracic spine. Normal visualized ribs, clavicles, and shoulders. There is no demonstrated abnormality of the visualized soft tissue structures of the upper abdomen. RAD/Chest 1 View (Portable) IMPRESSION: No acute abnormality is present. Electronically Signed: Uvaldo Biswas MD at 11:23 EDT Tel [phone], Service support , CC: oMo Reaves MD; Ju Knox DO Automation Controls Specialist: Signed Observed: 05/29/2017 Status: F Source: [place] URINE CULTURE 10:00 AM [facility] REPOSITORY Sp. Request/Comment: - Specimen received in preservative Culture Result - >=100,000 CFU/ml Escherichia coli --> ABNORMAL ALERT Extended spectrum beta lactamase (ESBL) production detected in this isolate. ESBL producing strains are considered resistant t o all cephalosporins, penicillins, and aztreonam. --> ABNORMAL ALERT ORGANISM: Escherichia coli METHOD: Minimum inhibitory concentration(Vitek) Antibiotic Interp SARAH Status Ampicillin RESISTANT >=32 F Gentamicin RESISTANT >=16 F Trimeth sulfameth SUSCEPTIBLE <=20 F Cefazolin RESISTANT >=64 F Ciprofloxacin RESISTANT >=4 F Nitrofurantoin SUSCEPTIBLE <=16 F Amikacin SUSCEPTIBLE 8 F Tobramycin RESISTANT >=16 F Cefepime RESISTANT >=64 F Ceftriaxone RESISTANT >=64 F Meropenem SUSCEPTIBLE <=0.25 F Ertapenem SUSCEPTIBLE <=0.5 F Performed By: #### URCUL #### [facility] [address] [place], [place] [address] PROGRESS Observed: 05/29/2017 Status: COMPLETED Source: [place]JAS 9:40 AM [facility] REPOSITORY HNO ID: [id number] Author: Harish Purcell Service: (none) Author Type: Nurse Practitioner Type: Progress Notes Filed: 05/29/2017 10:03 AM Note Text: HPI: Katherin Martin is a 76 year old female. Patient presents with: urgency with urination: x 1 day-does not really have any burning and states that she is throbbing down there which is usually her sign that she has a UTI Patient is a 76 year old female presenting with dysuria. The history is provided by the patient. UTI This is a new problem. The current episode started yesterday. The problem occurs every urination. The problem has been gradually worsening. The pain is at a severity of 2/10. The pain is mild. There has been no fever. Associated symptoms include frequency, hematuria and urgency. Pertinent negatives include no nausea, no vomiting and no flank pain. She has tried nothing for the symptoms. Her past medical history is significant for recurrent UTIs. Patient reports urinary frequency, urgency, and increased pressure with urination x last night. Reports she experiences these symptoms with UTI; has a hx of recurrent UTIs. Last UTI several months ago. Review of Systems Constitutional: Negative for fatigue and fever. HENT: Negative for congestion and sore throat. Respiratory: Negative for cough and shortness of breath. Cardiovascular: Negative for chest pain and palpitations. Gastrointestinal: Negative for abdominal pain, nausea and vomiting. Genitourinary: Positive for frequency, hematuria, pelvic pain and urgency. Negative for decreased urine volume, dysuria and flank pain. Neurological: Negative for headaches. Psychiatric/Behavioral: Negative for dysphoric mood. PAST MEDICAL HISTORY Diagnosis Date - Abdominal pain, right upper quadrant 10/26/2005 - Abnormal ECG 11/27/2013 - Bicipital tenosynovitis 05/28/2005 - CARDIAC DYSRHYTHMIAS NEC 12/11/2004 - Decreased libido 11/21/2011 - Diverticulitis 12/18/13 - DIVERTICULITIS OF COLON W/O BLEED 12/11/2004 - Hyperparathyroidism , secondary, non-renal (HCC) 06/20/2016 - Incisional hernia 11/02/2013 - ISOLATED OR SPECIFIC PHOBIAS NEC 12/11/2004 - Left lower quadrant pain 11/02/2013 - LLQ pain 12/18/13 - Menopausal hot flushes 10/17/2011 - OBESITY NOS 12/11/2004 - OSTEOARTHROS NOS-OTHER SITE 12/11/2004 L knee arthritis - Other voice and resonance disorders 10/24/2011 - PEPTIC ULCER NOS 12/11/2004 - Transient disorder of initiating or maintaining sleep 02/14/2005 - Vaginal dryness, menopausal 10/17/2011 PAST SURGICAL HISTORY Procedure Laterality Date - APPENDECTOMY 12/18/2013 [facility] [address] Garcia - CARPAL TUNNEL 2000 lt - CATARACT SURGERY, COMPLEX bilateral - EGD W/O OR W/BRUSH/WASH 10/24 EGD - PAST SURGICAL HISTORY OF 05/05/2004 Arthroscopic debridement right shoulder and AC Resection - PAST SURGICAL HISTORY OF 1990 Bladder suspension/hysterectomy - PAST SURGICAL HISTORY OF 1995 rectocele - PAST SURGICAL HISTORY OF 1979 right and left varicose vein stripping - PAST SURGICAL HISTORY OF 05/2006 whipple procedure - PAST SURGICAL HISTORY OF 12/18/2013 sigmoid colectomy [facility] Dr Garcia - REMOVAL GALLBLADDER 1979 Cholecystectomy - REVISE MEDIAN N/CARPAL TUNNEL SURG 03/1998 Carpal tunnel decomp RIGHT - TUBAL LIGATION, 79 ALLERGIES Toradol [Ketorolac Tromethamine]; Redux; Rozerem [Ramelteon] MEDICATIONS sitaGLIPtin (JANUVIA) 100 mg tablet Take 1 tablet by mouth once daily. canagliflozin (INVOKANA) 300 mg tablet Take 1 tablet by mouth daily before breakfast. oxyCODONE-acetaminophen (PERCOCET) 7.5-325 mg tablet Take 1 tablet by mouth every 6 hours as needed for Pain (increased frequency due to acute knee pain, continued chronic back pain) for up to 30 days. For severe pain.Earliest Fill Date: 04/14/17 Zolpidem (AMBIEN CR) 12.5 mg CR tablet Take 1 tablet by mouth daily at bedtime for 180 days. cyanocobalamin 1,000 mcg/mL soln Inject 1 mL intramuscularly once every month. oxyCODONE-acetaminophen (PERCOCET) 7.5-325 mg tablet Take 1 tablet by mouth twice daily as needed for up to 30 days. For severe pain. oxyCODONE-acetaminophen (PERCOCET) 7.5-325 mg tablet Take 1 tablet by mouth twice daily as needed for up to 30 days. For severe pain.Earliest Fill Date: 05/14/17 codeine-guaiFENesin (GUAIFENESIN AC) 10-100 mg/5 mL syrup Take 5 mL by mouth once daily as needed for up to 90 days. cholecalciferol, Vitamin D3, (VITAMIN D3) 50,000 unit cap capsule Take 1 capsule by mouth twice a week. fluticasone (FLONASE) 50 mcg/actuation nasal spray Use 2 Sprays in each nostril once daily. Rinse mouth after use. benzonatate (TESSALON PERLE) 100 mg capsule Take 1 capsule by mouth three times daily as needed. Lancets lancets Test blood sugar(s) once or twice daily. Dx: E11.9. Med: Invokana. One touch meter. pravastatin (PRAVACHOL) 20 mg tablet Take 1 tablet by mouth daily at bedtime. irbesartan (AVAPRO) 300 mg tablet Take 1 tablet by mouth once daily. bumetanide (BUMEX) 0.5 mg tablet Take 1 tablet by mouth once daily. As directed (may decrease to every other day if no swelling recurs) nystatin (MYCOSTATIN) powder Apply 1 application to affected area three times daily. As directed for treatment of yeast infection blood sugar diagnostic (BLOOD GLUCOSE TEST) test strip Test blood sugar(s) once or twice daily. Dx: E11.9. Med: Invokana. One touch meter. diltiazem XR (DILTIA XT) 240 mg 24 hr capsule Take 1 capsule by mouth once daily. esterified estrogens-methylTESTOSTERone (ESTRATEST HS) 0.625- 1.25 mg per tablet Take 1 tablet by mouth once daily. aluminum hydrox-magnesium carb (GAVISCON) 95-358 mg/15 mL suspension Take 15 mL by mouth every 6 hours as needed. icosapent ethyl (VASCEPA) 1 gram cap Take by mouth. DULoxetine (CYMBALTA) 60 mg capsule Take 1 capsule by mouth once daily. FAMILY HISTORY Problem Relation Age of Onset - Arthritis Mother rheumatoid - Heart Mother ND - Emphysema Maternal Grandmother Social History Substance Use Topics - Smoking status: Never Smoker - Smokeless tobacco: Never Used - Alcohol use Yes Comment: seldom OBJECTIVE: BP 124/78 Pulse 64 Temp 36.9 ?C (98.4 ?F) (Tympanic) Resp 18 Wt 99.8 kg (220 lb) BMI 38.97 kg/m2 EXAM: Physical Exam Constitutional: She appears well-developed and well-nourished. No distress. HENT: Head: Normocephalic. Cardiovascular: Normal rate, regular rhythm and normal heart sounds. Exam reveals no friction rub. No murmur heard. Pulmonary/Chest: Effort normal and breath sounds normal. Abdominal: Soft. She exhibits no distension and no mass. There is tenderness in the suprapubic area. There is no rigidity, no rebound, no guarding and no CVA tenderness. No hernia. Skin: Skin is warm, dry and intact. She is not diaphoretic. Psychiatric: She has a normal mood and affect. Her speech is normal and behavior is normal. ASSESSMENT/PLAN: 1. UTI symptoms - ICD9: 788.99, ICD10: R39.9 (primary diagnosis) - UA + small leukocytes, large blood - Will treat today based on patient's hx of recurrent UTIs. - Increase fluids and rest - UA DIP B/O - URINE CULTURE - NITROFURANTOIN MONOHYDRATE AND MACROCRYSTAL 100 MG ORAL CAP - FUP if symptoms persist in next 48-72 hours despite treatment, sooner if worsen. 2. Microscopic hematuria - ICD9: 599.72, ICD10: R31.29 - Discussed that common symptom of UTI - Advised repeat UA once UTI cleared up in approximately 2 weeks. Patient has appointment with PCP at the end of the month and states will get one then. The patient is instructed to return or seek emergency treatment if symptoms become worse or with any acute change in condition. The patient verbalizes understanding and is in agreement with plan of care. ARELIS KnightOV Observed: 05/29/2017 Status: COMPLETED Source: [place] 9:30 AM [facility] REPOSITORY Office Visit ([facility]) KATHERIN MARTIN ([id number]) 1940 F Date Time Provider Department 05/29/17 9:30 AM HARISH PURCELL ([facility]) [facility] During your visit today, we recorded the following information about you: Temperature Pulse Respiration Blood pressure 98.4 degrees 64/minute 18/minute 124/78 Weight 99.8 kg Harish Purcell APRN.CNP 05/29/2017 10:03 AM Signed HPI: Katherin Martin is a 76 year old female. Patient presents with: urgency with urination: x 1 day-does not really have any burning and states that she is throbbing down there which is usually her sign that she has a UTI Patient is a 76 year old female presenting with dysuria. The history is provided by the patient. UTI This is a new problem. The current episode started yesterday. The problem occurs every urination. The problem has been gradually worsening. The pain is at a severity of 2/10. The pain is mild. There has been no fever. Associated symptoms include frequency, hematuria and urgency. Pertinent negatives include no nausea, no vomiting and no flank pain. She has tried nothing for the symptoms. Her past medical history is significant for recurrent UTIs. Patient reports urinary frequency, urgency, and increased pressure with urination x last night. Reports she experiences these symptoms with UTI; has a hx of recurrent UTIs. Last UTI several months ago. Review of Systems Constitutional: Negative for fatigue and fever. HENT: Negative for congestion and sore throat. Respiratory: Negative for cough and shortness of breath. Cardiovascular: Negative for chest pain and palpitations. Gastrointestinal: Negative for abdominal pain, nausea and vomiting. Genitourinary: Positive for frequency, hematuria, pelvic pain and urgency. Negative for decreased urine volume, dysuria and flank pain. Neurological: Negative for headaches. Psychiatric/Behavioral: Negative for dysphoric mood. PAST MEDICAL HISTORY Diagnosis Date - Abdominal pain, right upper quadrant 10/26/2005 - Abnormal ECG 11/27/2013 - Bicipital tenosynovitis 05/28/2005 - CARDIAC DYSRHYTHMIAS NEC 12/11/2004 - Decreased libido 11/21/2011 - Diverticulitis 12/18/13 - DIVERTICULITIS OF COLON W/O BLEED 12/11/2004 - Hyperparathyroidism , secondary, non-renal (HCC) 06/20/2016 - Incisional hernia 11/02/2013 - ISOLATED OR SPECIFIC PHOBIAS NEC 12/11/2004 - Left lower quadrant pain 11/02/2013 - LLQ pain 12/18/13 - Menopausal hot flushes 10/17/2011 - OBESITY NOS 12/11/2004 - OSTEOARTHROS NOS-OTHER SITE 12/11/2004 L knee arthritis - Other voice and resonance disorders 10/24/2011 - PEPTIC ULCER NOS 12/11/2004 - Transient disorder of initiating or maintaining sleep 02/14/2005 - Vaginal dryness, menopausal 10/17/2011 PAST SURGICAL HISTORY Procedure Laterality Date - APPENDECTOMY 12/18/2013 [facility] [address] Garcia - CARPAL TUNNEL 2000 lt - CATARACT SURGERY, COMPLEX bilateral - EGD W/O OR W/BRUSH/WASH 10/24 EGD - PAST SURGICAL HISTORY OF 05/05/2004 Arthroscopic debridement right shoulder and AC Resection - PAST SURGICAL HISTORY OF 1990 Bladder suspension/hysterectomy - PAST SURGICAL HISTORY OF 1995 rectocele - PAST SURGICAL HISTORY OF 1979 right and left varicose vein stripping - PAST SURGICAL HISTORY OF 05/2006 whipple procedure - PAST SURGICAL HISTORY OF 12/18/2013 sigmoid colectomy [facility] Dr Garcia - REMOVAL GALLBLADDER 1979 Cholecystectomy - REVISE MEDIAN N/CARPAL TUNNEL SURG 03/1998 Carpal tunnel decomp RIGHT - TUBAL LIGATION, 79 ALLERGIES Toradol [Ketorolac Tromethamine]; Redux; Rozerem [Ramelteon] MEDICATIONS sitaGLIPtin (JANUVIA) 100 mg tablet Take 1 tablet by mouth once daily. canagliflozin (INVOKANA) 300 mg tablet Take 1 tablet by mouth daily before breakfast. oxyCODONE-acetaminophen (PERCOCET) 7.5-325 mg tablet Take 1 tablet by mouth every 6 hours as needed for Pain (increased frequency due to acute knee pain, continued chronic back pain) for up to 30 days. For severe pain.Earliest Fill Date: 04/14/17 Zolpidem (AMBIEN CR) 12.5 mg CR tablet Take 1 tablet by mouth daily at bedtime for 180 days. cyanocobalamin 1,000 mcg/mL soln Inject 1 mL intramuscularly once every month. oxyCODONE-acetaminophen (PERCOCET) 7.5-325 mg tablet Take 1 tablet by mouth twice daily as needed for up to 30 days. For severe pain. oxyCODONE-acetaminophen (PERCOCET) 7.5-325 mg tablet Take 1 tablet by mouth twice daily as needed for up to 30 days. For severe pain.Earliest Fill Date: 05/14/17 codeine-guaiFENesin (GUAIFENESIN AC) 10-100 mg/5 mL syrup Take 5 mL by mouth once daily as needed for up to 90 days. cholecalciferol, Vitamin D3, (VITAMIN D3) 50,000 unit cap capsule Take 1 capsule by mouth twice a week. fluticasone (FLONASE) 50 mcg/actuation nasal spray Use 2 Sprays in each nostril once daily. Rinse mouth after use. benzonatate (TESSALON PERLE) 100 mg capsule Take 1 capsule by mouth three times daily as needed. Lancets lancets Test blood sugar(s) once or twice daily. Dx: E11.9. Med: Invokana. One touch meter. pravastatin (PRAVACHOL) 20 mg tablet Take 1 tablet by mouth daily at bedtime. irbesartan (AVAPRO) 300 mg tablet Take 1 tablet by mouth once daily. bumetanide (BUMEX) 0.5 mg tablet Take 1 tablet by mouth once daily. As directed (may decrease to every other day if no swelling recurs) nystatin (MYCOSTATIN) powder Apply 1 application to affected area three times daily. As directed for treatment of yeast infection blood sugar diagnostic (BLOOD GLUCOSE TEST) test strip Test blood sugar(s) once or twice daily. Dx: E11.9. Med: Invokana. One touch meter. diltiazem XR (DILTIA XT) 240 mg 24 hr capsule Take 1 capsule by mouth once daily. esterified estrogens-methylTESTOSTERone (ESTRATEST HS) 0.625- 1.25 mg per tablet Take 1 tablet by mouth once daily. aluminum hydrox-magnesium carb (GAVISCON) 95-358 mg/15 mL suspension Take 15 mL by mouth every 6 hours as needed. icosapent ethyl (VASCEPA) 1 gram cap Take by mouth. DULoxetine (CYMBALTA) 60 mg capsule Take 1 capsule by mouth once daily. FAMILY HISTORY Problem Relation Age of Onset - Arthritis Mother rheumatoid - Heart Mother ND - Emphysema Maternal Grandmother Social History Substance Use Topics - Smoking status: Never Smoker - Smokeless tobacco: Never Used - Alcohol use Yes Comment: seldom OBJECTIVE: BP 124/78 Pulse 64 Temp 36.9 ?C (98.4 ?F) (Tympanic) Resp 18 Wt 99.8 kg (220 lb) BMI 38.97 kg/m2 EXAM: Physical Exam Constitutional: She appears well-developed and well-nourished. No distress. HENT: Head: Normocephalic. Cardiovascular: Normal rate, regular rhythm and normal heart sounds. Exam reveals no friction rub. No murmur heard. Pulmonary/Chest: Effort normal and breath sounds normal. Abdominal: Soft. She exhibits no distension and no mass. There is tenderness in the suprapubic area. There is no rigidity, no rebound, no guarding and no CVA tenderness. No hernia. Skin: Skin is warm, dry and intact. She is not diaphoretic. Psychiatric: She has a normal mood and affect. Her speech is normal and behavior is normal. ASSESSMENT/PLAN: 1. UTI symptoms - ICD9: 788.99, ICD10: R39.9 (primary diagnosis) - UA + small leukocytes, large blood - Will treat today based on patient's hx of recurrent UTIs. - Increase fluids and rest - UA DIP B/O - URINE CULTURE - NITROFURANTOIN MONOHYDRATE ANDamp; MACROCRYSTAL 100 MG ORAL CAP - FUP if symptoms persist in next 48-72 hours despite treatment, sooner if worsen. 2. Microscopic hematuria - ICD9: 599.72, ICD10: R31.29 - Discussed that common symptom of UTI - Advised repeat UA once UTI cleared up in approximately 2 weeks. Patient has appointment with PCP at the end of the month and states will get one then. The patient is instructed to return or seek emergency treatment if symptoms become worse or with any acute change in condition. The patient verbalizes understanding and is in agreement with plan of care. ARELIS Knight APRN.CNP 05/29/2017 9:55 AM Signed URINARY TRACT INFECTION GENERAL INFORMATION: A urinary tract infection (UTI) is an infection of the bladder or kidneys. A bladder infection, called cystitis, is the more common type. If the infection travels up to the kidneys, it is called pyelonephritis. This can be more serious. UTIs are a common problem in women. Having sexual relations can leave a woman more susceptible to developing a UTI, but it is not sexually transmitted like gonorrhea. Some women have a problem with recurrent UTIs. INSTRUCTIONS: 1. Your doctor prescribed an antibiotic to treat the UTI. Take exactly as directed. Be sure to take all the medication prescribed, even if your symptoms disappear. If you stop treatment early, the infection may not be fully treated and the symptoms could come back again. 2. Get plenty of rest. You may take acetaminophen for fever and aches. 3. Drink 6 to 8 glasses of fluids, especially water, every day. This helps wash out germs from your urinary tract. Cranberry juice or other sources of vitamin C are also good for you. 4. Urinate often, as soon as you feel the urge. Empty your bladder completely. Urinate before and after you have sex. 5. Always wipe from front to back after going to the bathroom. This pushes germs away from your bladder, rather than towards it. 6. Showers are better than baths, and you should wash the genital area daily. Avoid bubble bath or bath oils if you do take a bath. 7. Wear underwear and pantyhose with a cotton crotch. CONTACT YOUR DOCTOR: 1. You have a temperature over 102F (38.8C) after 48 hours on medication. 2. You notice blood in your urine. 3. Your symptoms don't improve in 2 days. 4. You develop nausea, vomiting, diarrhea, or a rash. 5. You develop new or unexplained symptoms. These may be related to the medication you are taking. 6. Your symptoms return after you finish treatment. RETURN TO THE EMERGENCY DEPARTMENT IF: You develop vomiting and can't keep your medication or fluids down. Referring Provider: SELF [[id number]] Allergies As of Date: 05/29/2017 Noted Allergy Reaction TORADOL (KETOROLAC TROMETHAMINE) 11/16/2004 7 - Swelling Comments: itching REDUX 11/05/2016 1 - Mental Status Change Comments: nightmares THEODORE (RAMELTEON) 06/20/2016 5 - Intolerance Comments: [place] paralyzed and gave her nightmares Date Reviewed: 05/29/2017 Reviewed by: Harish ([facility]) Binh - Fully Assessed Reason for Visit: urgency with urination [Other] Cmt: x 1 day-does not really have any burning and states that she is throbbing down there which is usually her sign that she has a UTI Primary Visit Diagnosis:UTI symptoms [R39.9] Other Visit Diagnosis:Microscopic hematuria [R31.29] Order(s):UA DIP B/O [[id number]] Order #: [id number] URINE CULTURE [SQURCUL] Order #: [id number] nitrofurantoin monohydrate and macrocrystal (MACROBID) 100 mg capsuleTake 1 capsule by mouth twice daily for 7 days.Disp: 14 capsuleRfl: 0 Prescriptions as of 05/29/2017 Sig: SITAGLIPTIN 100 MG TABLET Take 1 tablet by mouth once d* CANAGLIFLOZIN 300 MG TABLET Take 1 tablet by mouth daily * OXYCODONE-ACETAMINOPHEN 7.5 M* Take 1 tablet by mouth every * ZOLPIDEM ER 12.5 MG TABLET,EX* Take 1 tablet by mouth daily * CYANOCOBALAMIN (VIT B-12) 1,0* Inject 1 mL intramuscularly o* OXYCODONE-ACETAMINOPHEN 7.5 M* Take 1 tablet by mouth twice * OXYCODONE-ACETAMINOPHEN 7.5 M* Take 1 tablet by mouth twice * CODEINE 10 MG-GUAIFENESIN 100* Take 5 mL by mouth once daily* CHOLECALCIFEROL (VITAMIN D3) * Take 1 capsule by mouth twice* FLUTICASONE 50 MCG/ACTUATION * Use 2 Sprays in each nostril * BENZONATATE 100 MG CAPSULE Take 1 capsule by mouth three* LANCETS Test blood sugar(s) once or t* PRAVASTATIN 20 MG TABLET Take 1 tablet by mouth daily * IRBESARTAN 300 MG TABLET Take 1 tablet by mouth once d* BUMETANIDE 0.5 MG TABLET Take 1 tablet by mouth once d* NYSTATIN 100,000 UNIT/GRAM TO* Apply 1 application to affect* BLOOD SUGAR DIAGNOSTIC STRIPS Test blood sugar(s) once or t* DILTIAZEM XR 240 MG CAP Take 1 capsule by mouth once * ESTERIFIED ESTROGENS-METHYLTE* Take 1 tablet by mouth once d* ALUMINUM HYDROX-MAGNESIUM CAR* Take 15 mL by mouth every 6 h* ICOSAPENT ETHYL 1 GRAM CAPSULE Take by mouth. NITROFURANTOIN MONOHYDRATE AND * Take 1 capsule by mouth twice* DULOXETINE 60 MG CAPSULE,MEHRDAD* Take 1 capsule by mouth once * Medication notes this encounter DULOXETINE 60 MG CAPSULE,DELAYED RELEASE >> Johanna Cardona LPN 05/29/2017 9:34 AM >> JOHANNA CARDONA LPN SatMay 29, 2017 9:34 AM Not Taking Problem List As Of Date 05/29/2017 Noted Resolved Primary osteoarthritis involving multiple joint*INVALID FOR* More... Obesity [E66.9] INVALID FOR* MYALGIA AND MYOSITIS NOS [OAU0184] INVALID FOR* Chronic Pancreatitis [K86.1] INVALID FOR* Osteopenia [M85.80] INVALID FOR* More... Essential hypertension [I10] INVALID FOR* Hypertriglyceridemia [E78.1] INVALID FOR* Diabetes mellitus type II INVALID FOR*10/05/2013 Depression [F32.9] INVALID FOR* Atrial fibrillation [I48.91] INVALID FOR* Vitamin D deficiency [E55.9] INVALID FOR* Anxiety [F41.9] INVALID FOR* Controlled substance agreement signed [Z79.899] INVALID FOR* Diabetes (HCC) [E11.9] INVALID FOR*08/14/2015 Stress and adjustment reaction [F43.29] INVALID FOR* Chronic abdominal pain [R10.9, G89.29] INVALID FOR* ADD (attention deficit disorder) without hypera*INVALID FOR* Hyperparathyroidism , secondary, non-renal (HCC*INVALID FOR* Hyperparathyroidism, primary (HCC) [E21.0] INVALID FOR* Other instructions from your clinician: URINARY TRACT INFECTION GENERAL INFORMATION: A urinary tract infection (UTI) is an infection of the bladder or kidneys. A bladder infection, called cystitis, is the more common type. If the infection travels up to the kidneys, it is called pyelonephritis. This can be more serious. UTIs are a common problem in women. Having sexual relations can leave a woman more susceptible to developing a UTI, but it is not sexually transmitted like gonorrhea. Some women have a problem with recurrent UTIs. INSTRUCTIONS: 1. Your doctor prescribed an antibiotic to treat the UTI. Take exactly as directed. Be sure to take all the medication prescribed, even if your symptoms disappear. If you stop treatment early, the infection may not be fully treated and the symptoms could come back again. 2. Get plenty of rest. You may take acetaminophen for fever and aches. 3. Drink 6 to 8 glasses of fluids, especially water, every day. This helps wash out germs from your urinary tract. Cranberry juice or other sources of vitamin C are also good for you. 4. Urinate often, as soon as you feel the urge. Empty your bladder completely. Urinate before and after you have sex. 5. Always wipe from front to back after going to the bathroom. This pushes germs away from your bladder, rather than towards it. 6. Showers are better than baths, and you should wash the genital area daily. Avoid bubble bath or bath oils if you do take a bath. 7. Wear underwear and pantyhose with a cotton crotch. CONTACT YOUR DOCTOR: 1. You have a temperature over 102F (38.8C) after 48 hours on medication. 2. You notice blood in your urine. 3. Your symptoms don't improve in 2 days. 4. You develop nausea, vomiting, diarrhea, or a rash. 5. You develop new or unexplained symptoms. These may be related to the medication you are taking. 6. Your symptoms return after you finish treatment. RETURN TO THE EMERGENCY DEPARTMENT IF: You develop vomiting and can't keep your medication or fluids down. Prescriptions ordered this encounter Disp Refills Start End NITROFURANTOIN MONOHYDRATE AND MACROCR* 14 c* 0 05/29/2017 06/05/2017 Route: ORAL Sig: Take 1 capsule by mouth twice daily for 7 days. Encounter Status:Closed by HARISH PURCELL CNP on 05/29/17 KNEE 4 OR MORE Observed: 05/28/2017 Status: F Source: [place] VIEWS 2:22 PM [facility] REPOSITORY [facility] Imaging Services [address] [place] [id number] Knee 4 or More Views MR#: [id number] Acct: [id number] Name: MARIOKATHERIN S Rep #: [id number] : 1940 F 76 From: Lennox Miranda MD PCP: Moo Reaves MD Status: REG CLI Study: Knee 4 or More Views Date of Exam: 05/28/17 Exam# [id number] Ordering Dr: Mendy Walker DO STUDY: X-RAY - RIGHT KNEE REASON FOR EXAM: Postop. TECHNIQUE: 4 view(s) of the knee. COMPARISON: Radiographs 04/05/2017. FINDINGS: There is osteopenia. There is an area of osteosclerosis in the medial femoral condyle. Normal visualized proximal tibia and fibula. Normal proximal tibiofibular articulation. There is joint space narrowing of the medial femorotibial compartment. Normal lateral femorotibial compartment. There is no significant joint space narrowing of the patellofemoral articulation. There is a joint effusion. There is a small enthesophyte at the superior pole of the patella. RAD/Knee 4 or More Views IMPRESSION: Interval development of osteosclerosis in the medial femoral condyle suggestive of insufficiency fracture. Arthrosis of the medial femorotibial compartment. Joint effusion. Electronically Signed: Lennox Miranda MD at 12:59 EDT Tel , Service support , CC: Mendy Walker DO; Moo Reaves MD Automation Controls Specialist: Signed ORTHOPEDIC VISIT Observed: 05/28/2017 Status: F Source: [place] REPORT 2:18 PM [facility] REPOSITORY [facility] Orthopaedics AND Sports Medicine [address] [place] [address] [address] [place] [address] OFFICE VISIT Date of Service: 05/28/17 MR#: [id number] Acct: [id number] Name: KATHERIN MARTIN Rep #: [id number] : 1940 Provider: Mendy Walker DO Age/Sex: 76/F [place] [facility] [place]: Signed Intake Intake Visit Reasons: RIGHT KNEE Integrity Consultant Required: No Is patient in pain?: Yes (right knee ) Pain scale (1-10): 7 Allergies ramelteon [From Rozerem] Allergy (Verified 05/23/17 13:59) Other bupropion Adverse Reaction (Verified 05/23/17 13:59) Other bupropion HCl [From Wellbutrin] Adverse Reaction (Verified 05/23/17 13:59) Other dexfenfluramine HCl [From Redux] Adverse Reaction (Verified 05/23/17 13:59) Unknown hydrochlorothiazide Adverse Reaction (Verified 05/23/17 13:59) Other ketorolac tromethamine [From Toradol] Adverse Reaction (Verified 05/23/17 13:59) Itching oxaprozin [From Daypro] Adverse Reaction (Verified 05/23/17 13:59) Other Medications ALPRAZolam [Xanax] 0.5 mg PO BID 12/11/13 [History Confirmed 05/10/17] Bumetanide [Bumex] 0.5 mg PO DAILY 12/11/13 [History Confirmed 05/10/17] Diltiazem CD [Cardizem CD] 240 mg PO DAILY 12/11/13 [History Confirmed 05/10/17] Irbesartan [Avapro] 300 mg PO DAILY 12/11/13 [History Confirmed 05/10/17] Pravastatin [Pravachol] 20 mg PO QHS 12/11/13 [History Confirmed 05/10/17] Zolpidem Tartrate [Ambien Cr] 12.5 mg PO QHS 12/11/13 [History Confirmed 05/10/17] Canagliflozin [Invokana] 300 mg PO DAILY 09/12/16 [History Confirmed 05/10/17] Oxycodone HCl/Acetaminophen [Percocet 7.5-325 mg Tablet] 1 ea PO BID 09/12/16 [History Confirmed 05/10/17] Duloxetine Hcl [Cymbalta] 60 mg PO DAILY 05/10/17 [History Confirmed 05/10/17] Oxycodone HCl/Acetaminophen [Percocet 5/325] 1 - 2 tab PO Q6H PRN PRN #56 tab 05/15/17 [Rx] hydrocodone 5 mg-acetaminophen 325 mg tablet 1 tab PO Q6H PRN 6 Days #30 tab 05/23/17 [Rx Confirmed 05/23/17] rivaroxaban 15 mg tablet 15 mg PO QPM #21 tab 05/23/17 [Rx Confirmed 05/23/17] rivaroxaban 20 mg tablet 20 mg PO QPM #70 tab 05/23/17 [Rx Confirmed 05/23/17] PFSH Medical History whipple surgery (Inactive) Surgical History S/P right knee surgery (Acute) History of bilateral carpal tunnel release (Inactive) History of bladder suspension procedure (Inactive) History of hysterectomy (Inactive) S/P cholecystectomy (Inactive) sigmoid colon removed (Inactive) vaginal wall repaired (Inactive) Family History Mother Myocardial infarction Social History Smoking Status: Never smoker HPI RIGHT KNEE: Details: KATHERIN MARTIN is a 76 year old F here today for post op follow up. Patient had surgery 05-15-17 for medial meniscus repair. Patient states her pain is 7/10 today She states she has 3 types of pain and describes them as someone taking a screw cement truck driver to her incision site, an ache below the knee and a pulsating pain in the thigh up to the hip. Takes the norco for pain and does not seem to help. Pain is aggravated with rising to stand and is relieved with ice, rest, and sometimes pain medication. Has noticed daily swelling. Does hear popping and clicking upon movement. Denies numbness and tingling, sob, chest pain, or other constitutional symptoms. Ortho Exam Right Knee Date of Surgery: 05/15/17 Skin/Wound: Yes suture/hamlet removed, Yes CDI Contralateral Normal: Yes Swelling: Yes Homans Sign: No 3+: Effusion Knee ROM: Yes ROM-Extension -20 to 0, Yes ROM-Flexion 0-140 (90) Examination: Yes Pain with flexion, Yes Pain with extention, Yes Med jt line tenderness Assessment AND Plan 1. Orthopedic aftercare Z47.89 Plan addenedum- (phone message to patient 05/24): patient had no sob, chest pain, etc. patient instructed that if increased sob or chest pain to call us or go to nearest emergency room for evaluation of pulmonary embolus. discussed with daughter and patient and in agreement of plan Explained to the patient that by her crawling around and weight bearing she has likely destroyed the cement component of her surgery and that she may have collapsing bone at this point. At 6wks post op we can aspirate her knee. Instructed to remain pwb. If this fails she may need to consider a tka . Monitor for shortness of breath and explained that we will get a new doppler at 3months Follow up in a month or sooner if pain, swelling, numbness or associated symptoms, or concerns develop. All questions answered. Patient in agreement of plan. Plan Detail Other Orders Orders: Coding Level of Care Code Global Post Op Diagnoses Orthopedic aftercare Z47.89 05/28/17 1418 <Electronically signed by Mendy Walker DO> Date Mendy Beckfordignvasquez Signature: Date (if applicable) CC: OPERATIVE REPORT Observed: 05/24/2017 Status: F Source[facility] Medical Records Department [address] [place] [address] Operative Report 05/15/17 1132 MR#: [id number] Acct: [id number] Name: KATHERIN MARTIN Rep #: [id number] : 1940 76 From: Mendy Walker DO PCP: Care Physician, No Primary Status: [facility] Location: [facility] [place] Report of Operation Date of Procedure: 05/15/17 Pre-Operative Diagnosis: right knee osteoarthritis, medial and lateral meniscus tears, mfc subchondral fracture/edema Post-Operative Diagnosis: same Surgery/Procedure Performed:: sark, pmm and plm, patella chondroplasty, synovectomy, mfc microinternal fixation with bone cement Type of Anesthesia:: General Anesthesiologist: Darien Granados Estimated Blood Loss (mL): minimal Fluids Replaced: 700cc lr Description of Procedure: Preoperative note 76-year-old female with constant right knee pain locking instability. Patient failed conservative treatment elected proceed with a right knee arthroscopy repair is indicated after MRI confirms medial femoral condyle subchondral fracture as well as an unstable medial meniscus and questionable lateral meniscus tear as well as arthritis. Wrist benefits and alternatives surgery discussed with patient. Risks including but not limited to blood loss, blood clot, infection, neurovascular injury, failure procedure, loss of life and loss of limb. Patient is aware would like to proceed with right knee arthroscopy repair is indicated. We did discuss that she may still have pain from the arthritis that was residual however she has grade 4 eburnated changes we probably would not do the subchondral plasty she has at least have some sort of cartilage at least a grade 3-2 purulent covering the MFC before and we will proceed. Patient and family are aware we will proceed as indicated. Operative note Patient seen and examined preoperative holding area. Right knee was marked. Patient brought to the operating room placed supine on the operating table. Signing, anesthesia, antibiotics for Mr. Right knee was prepped and draped in usual usual sterile fashion with a tourniquet around her upper thigh. We marked out our anterior lateral anterior medial portal. We then elevated a segment of the leg and the tourniquet was raised to pressure of 300 torr. Timeout was performed. We created her anterior lateral portal under standard technique. We visualize the patellofemoral joint. She had grade 2 fibrillated changes are unstable at the inferior portal pole of patella. We then moved to the anteromedial joint created anterior medial portal under direct visualization. We able to probe the unstable posterior horn to mid body tear. The combination of a shaver and a basket resected to a stable rim. The ACL and PCL were present within the notch. We then moved to the lateral joint line. There was an unstable anterior horn to mid body tear that was carefully resected combination of a shaver and a basket as well. We then reinserted our probe ensure that we had stable remnant meniscus remaining of the medial lateral which we did have. The lateral femoral condyle was intact stable probing there was grade 2 fibrillated changes of the lateral tibial plateau. The medial femoral condyle had grade 2 and grade 3 but cartilage was albeit thin and a 2 x 4 area still like him intact as well as the medial tibial plateau. There is some grade 2 fibrillated changes in grade 3 in the centralized area of the medial tibial plateau but no eburnated no [id number]. We irrigated with copious amounts of sterile saline. We then moved to our micro-internal fixation. Preoperative review of the patient's right knee MRI and the location of the bone marrow lesion consistent with insufficiency stress fracture in the middle femoral condyle was identified. Preoperative surgical planning allow for determination of the optimal method for assessing lesion. Intraoperatively image fluoroscopy combined with bone target instruments from Gin were used to guide surgical instruments into the proximity of the subchondral MFC fracture. The Gin acupoint injection cannula was drilled into the subchondral bone standard repair without methodology pathology was used to treat the subchondral bone defect. Image fluoroscopy was utilized to confirm accurate insertion of the injection cannula into the subchondral fracture. After insertion fracture stabilization position was performed by injecting 1-1/2 cc of Gin bone substitute into the medial femoral condyle. Image fluoroscopy was used to monitor the injection process we did have a little bit extravasated. We then ensure that the bio material flowed into the fracture site to stabilize the fracture and facilitate fracture repair. He has slight extravasation of the bone cement we did go back into the knee and irrigate the knee with copious amounts of sterile saline into we had a completely clear knee with no particles remaining. This did not did extend our tourniquet time quite a bit as I wanted to ensure that there is no particles remaining. We also confirmed with fluoroscopy that there is nothing further in the joint and that we had good bone filling substitute into the defect which is also visualized on fluoroscopy. After irrigating the knee with copious amounts of sterile saline portals were closed with interrupted 4-0 nylon stitches and the placement for the injection was closed with interrupted 4-0 nylon stitch as well. sterile dressing was applied. The patient tolerated the procedure well there are no complications patient was transferred to the recovery room in stable condition. Postoperative note Having an issue with the printer so we will wait until the pictures were printed and we had 1 of the rubs in to fix the printer so that we can give it to the family Nonweightbearing right leg Sterile dressings to remove removed in 4 days Percocet prescription at [facility] next Follow-up in 2 weeks Call with concerns as This note was generated with Execation software. It may contain incorrect words, spelling, and punctuation that were not noted in checking the note before signing. 05/24/17 1315 <Electronically signed by Mendy Walker DO> Date Mendy Walker DO CC: No Primary Care Physician; Mendy Walker DO Signed VENOUS DUPLEX LOWER Observed: 05/24/2017 Status: F Source: [place] EXTREMITY 7:09 AM [facility] REPOSITORY [facility] Cardiovascular Services [address] [place] [address] Venous Duplex US, Unilateral 05/23/17 1444 MR#: [id number] Acct: [id number] Name: KATHERIN MARTIN Rep #: [id number] : 1940 76 From: Rod Hidalgo MD Attending Dr: Mendy Walker DO Status: REG CLI Ordering Dr: Mendy Walker DO Date: 05/23/17 Location: [facility] Sex: F C Admitted: Reason For Study: LEG PAIN AND SWELLING RIGHT LEFT GSV is normal. CFV is compressible, spontaneous, phasic, CFV is compressible, spontaneous, phasic, competent, and demonstrates normal competent and demonstrates normal augmentation. augmentation. FV is compressible, spontaneous, phasic, competent and demonstrates normal augmentation. POP V, T/P trunk, PTV, PER V, Soleus V and SSV are dilated and non-compressible with intraluminal echoes. Procedure Exam performed in department. A preliminary report was called and/or faxed to Dr. Walker. Interpretation Summary Acute deep vein thrombosis is noted in the right popliteal vein. Acute deep vein thrombosis is noted in the right tibio-peroneal trunk. Acute deep vein thrombosis is noted in the right posterior tibial vein. Acute deep vein thrombosis is noted in the right peroneal vein. Acute deep vein thrombosis is noted in the right soleus vein. The right common femoral vein and femoral vein are patent, compressible, and competent. The right greater saphenous vein appears patent and compressible segmentally. Acute superficial thrombophlebitis is noted in the right small saphenous vein. Ordering Physician: Mendy Walker Referring Physician: Moo Reaves M.D. Performed By: Reina Ferrera RVT 05/24/17 0709 Date Rod Hidalgo MD CC: Mendy Walker DO; Moo Reaves MD Date Dictated: 05/23/17 1444 Date Transcribed: 05/24/17 0709 Automation Controls Specialist: Signed DISCHARGE INSTRUCTION Observed: 05/15/2017 Status: F Source: [place]IE 11:32 AM [facility] REPOSITORY [facility] Medical Records Department [address] [place] [address] Instructions for Home/Discharge Instructions 05/15/17 1130 MR#: [id number] Acct: [id number] Name: KATHERIN MARTIN Rep #: [id number] : 1940 76 From: Mendy Walker DO PCP: Care Physician, No Primary Status: REG SDC Discharge Diet: No Restrictions - nwb right leg, sterile dressings removed at pod 4 and apply bandaids to incision sites, do not get incision wet until pod4, walker at all times, follow up in 2 weeks, call with concerns Discharge Activity: May Not Drive May shower in (days): 1 Ice area for (Minutes): 20 - Every hour while awake. Weight Bearing Status: Weight bearing as tolerated Keep extremity elevated above heart level: Operative Extremity Call your doctor if your incision/area has: Continuous Slow Oozing, Sudden Increased Bleeding, Increased Pain/ Swelling, Increased Redness, Foul Smelling Discharge Call your doctor if you observe: Fever of 101 or Higher, Coldness, Increased Pain, Numbness or Tingling, Change in Color, Calf discomfort Allergies/Adverse Reactions: Allergies ramelteon [From Rozerem] Allergy (Verified 05/15/17 08:05) Other bupropion Adverse Reaction (Verified 05/10/17 14:44) Other UNKNOWN bupropion HCl [From Wellbutrin] Adverse Reaction (Verified 05/10/17 14:44) Other UNKNOWN dexfenfluramine HCl [From Redux] Adverse Reaction (Verified 05/10/17 14:44) Unknown hydrochlorothiazide Adverse Reaction (Verified 05/10/17 14:44) Other UNKNOWN ketorolac tromethamine [From Toradol] Adverse Reaction (Verified 05/10/17 14:44) Itching oxaprozin [From Daypro] Adverse Reaction (Verified 05/10/17 14:44) Other UNKNOWN Medications to take at Discharge ALPRAZolam [Xanax] 0.5 mg PO BID 12/11/13 Bumetanide [Bumex] 0.5 mg PO DAILY 12/11/13 Diltiazem CD [Cardizem CD] 240 mg PO DAILY 12/11/13 Irbesartan [Avapro] 300 mg PO DAILY 12/11/13 Pravastatin [Pravachol] 20 mg PO QHS 12/11/13 Zolpidem Tartrate [Ambien Cr] 12.5 mg PO QHS 12/11/13 Canagliflozin [Invokana] 300 mg PO DAILY 07/26/17 Oxycodone HCl/Acetaminophen [Percocet 7.5-325 mg Tablet] 1 ea PO BID 09/12/16 Duloxetine Hcl [Cymbalta] 60 mg PO DAILY 05/10/17 Oxycodone HCl/Acetaminophen [Percocet 5/325] 1 - 2 tablet PO Q6H PRN PRN #56 tablet 05/15/17 The following prescriptions were given: Oxycodone HCl/Acetaminophen [Percocet 5/325] 1 - 2 tablet PO Q6H PRN PRN #56 tablet PRN Reason: Pain Primary Care Physician: Care Physician,No Primary [Primary Care Provider] - Please Follow Up With: Mendy Walker DO - [phone] 05/15/17 1132 <Electronically signed by Mendy Walker DO> Date Mendy Walker DO CC: No Primary Care Physician BEDSIDE GLUCOSE Collected: 05/15/2017 Status: F Source: [place] 7:59 AM [facility] REPOSITORY TYPE CODE TESTS RESULT OUT OF REFERENCE UNITS RANGE LAB L501.080 70-110 mg/dL High BEDSIDE GLU 256 Result Comment: MANAGEMENT OF PATIENT CARE PER NURSING PROTOCOL Performed By: #### L501.080 #### [facility] Point of Care [address] [facility] [address] KNEE 1 OR 2 VIEWS Observed: 05/15/2017 Status: F Source: [place] 4:19 AM [facility] REPOSITORY [facility] Imaging Services [address] [place] [address] Knee 1 or 2 Views MR#: [id number] Acct: [id number] Name: MAGALYKATHERIN MASON He Rep #: [id number] : 1940 F 76 From: Lennox Miranda MD PCP: Care Physician, No Primary Status: [facility] Study: Knee 1 or 2 Views Date of Exam: 05/15/17 Exam# [id number] Ordering Dr: Mendy Walker DO STUDY: X-RAY - RIGHT KNEE REASON FOR EXAM: Micro internal interval fixation medial femoral condyle. TECHNIQUE: 2 fluoroscopic view(s) of the knee. COMPARISON: Radiographs 04/05/2017. FINDINGS: 2 lateral views of the knee reveal an arthroscope and gas in the knee joint. Electronically Signed: Lennox Miranda MD at 7:57 EDT Tel , Service support , RAD/Knee 1 or 2 Views CC: No Primary Care Physician; Mendy Walker DO Automation Controls Specialist: Signed PROGRESS Observed: 05/08/2017 Status: COMPLETED Source: [facility] 2:41 PM [facility] REPOS[facility] HNO ID: [id number] Author: Raven (Francie) ARELIS Blood Service: (none) Author Type: Nurse Practitioner Type: Progress Notes Filed: 05/08/2017 3:44 PM Note Text: CC: Patient presents with: blood sugar readings: elevated HPI Katherin Martin is a 76 year old female who presents for elevated blood sugars. Patient states last week her blood sugars were in the 500's and she was feeling terrible. Thinks it is possibly due to the fact that she has a torn meniscus and has not been active and since she couldn't leave her house to go to the grocery store she has been eating a lot of junk food like cake and cookies. She also had steroid injection in her knee about two weeks ago. A lot of stress right now as well. Daughter in law committed suicide recently and still grieving over her 's . Blood sugars have been better this week, now in the high 200's and yesterday morning it was 164. Has been eating healthier foods and sticking with diabetic diet. Feeling better this week also but still really tired, nauseated and has not motivation to do anything. Denies excessive thirst, urinary frequency, numbness, tingling or pain in extremities, new or unusual visual symptoms, low sugar/hypoglycemic reactions She is compliant with medication(s) and is tolerating med(s) without any side effects. Only taking Invokana 300 mg daily. Prior to this was not checking blood sugars regularly but reports usually no higher than 200 when she does check. Patient's last HgA1C was Hemoglobin A1C (%) Date Value 03/15/2017 8.2 12/04/2016 7.8 ) REVIEW OF SYSTEMS See HPI PAST MEDICAL HISTORY Diagnosis Date - CARDIAC DYSRHYTHMIAS NEC 12/11/2004 - Diverticulitis 12/18/13 - DIVERTICULITIS OF COLON W/O BLEED 12/11/2004 - Hyperparathyroidism , secondary, non-renal (HCC) 06/20/2016 - ISOLATED OR SPECIFIC PHOBIAS NEC 12/11/2004 - LLQ pain 12/18/13 - OBESITY NOS 12/11/2004 - OSTEOARTHROS NOS-OTHER SITE 12/11/2004 L knee arthritis - PEPTIC ULCER NOS 12/11/2004 PAST SURGICAL HISTORY Procedure Laterality Date - APPENDECTOMY 12/18/2013 [facility] [address] Garcia - CARPAL TUNNEL 2000 lt - CATARACT SURGERY, COMPLEX bilateral - EGD W/O OR W/BRUSH/WASH 10/24 EGD - PAST SURGICAL HISTORY OF 05/05/2004 Arthroscopic debridement right shoulder and AC Resection - PAST SURGICAL HISTORY OF 1990 Bladder suspension/hysterectomy - PAST SURGICAL HISTORY OF 1995 rectocele - PAST SURGICAL HISTORY OF 1979 right and left varicose vein stripping - PAST SURGICAL HISTORY OF 05/2006 whipple procedure - PAST SURGICAL HISTORY OF 12/18/2013 sigmoid colectomy [facility] Dr Garcia - REMOVAL GALLBLADDER 1979 Cholecystectomy - REVISE MEDIAN N/CARPAL TUNNEL SURG 03/1998 Carpal tunnel decomp RIGHT - TUBAL LIGATION, 79 ALLERGIES Toradol [Ketorolac Tromethamine]; Redux; Rozerem [Ramelteon] MEDICATIONS oxyCODONE-acetaminophen (PERCOCET) 7.5-325 mg tablet Take 1 tablet by mouth every 6 hours as needed for Pain (increased frequency due to acute knee pain, continued chronic back pain) for up to 30 days. For severe pain.Earliest Fill Date: 04/14/17 Zolpidem (AMBIEN CR) 12.5 mg CR tablet Take 1 tablet by mouth daily at bedtime for 180 days. cyanocobalamin 1,000 mcg/mL soln Inject 1 mL intramuscularly once every month. oxyCODONE-acetaminophen (PERCOCET) 7.5-325 mg tablet Take 1 tablet by mouth twice daily as needed for up to 30 days. For severe pain. [START ON 05/14/2017] oxyCODONE-acetaminophen (PERCOCET) 7.5- 325 mg tablet Take 1 tablet by mouth twice daily as needed for up to 30 days. For severe pain.Earliest Fill Date: 05/14/17 codeine-guaiFENesin (GUAIFENESIN AC) 10-100 mg/5 mL syrup Take 5 mL by mouth once daily as needed for up to 90 days. cholecalciferol, Vitamin D3, (VITAMIN D3) 50,000 unit cap capsule Take 1 capsule by mouth twice a week. fluticasone (FLONASE) 50 mcg/actuation nasal spray Use 2 Sprays in each nostril once daily. Rinse mouth after use. ALPRAZolam (XANAX) 0.5 mg tablet TAKE 1 TABLET TWICE DAILY benzonatate (TESSALON PERLE) 100 mg capsule Take 1 capsule by mouth three times daily as needed. INVOKANA 300 mg tablet TAKE 1 TABLET BY MOUTH DAILY BEFORE BREAKFAST. Lancets lancets Test blood sugar(s) once or twice daily. Dx: E11.9. Med: Invokana. One touch meter. pravastatin (PRAVACHOL) 20 mg tablet Take 1 tablet by mouth daily at bedtime. irbesartan (AVAPRO) 300 mg tablet Take 1 tablet by mouth once daily. bumetanide (BUMEX) 0.5 mg tablet Take 1 tablet by mouth once daily. As directed (may decrease to every other day if no swelling recurs) nystatin (MYCOSTATIN) powder Apply 1 application to affected area three times daily. As directed for treatment of yeast infection blood sugar diagnostic (BLOOD GLUCOSE TEST) test strip Test blood sugar(s) once or twice daily. Dx: E11.9. Med: Invokana. One touch meter. diltiazem XR (DILTIA XT) 240 mg 24 hr capsule Take 1 capsule by mouth once daily. DULoxetine (CYMBALTA) 30 mg capsule Take 1 capsule by mouth once daily. esterified estrogens-methylTESTOSTERone (ESTRATEST HS) 0.625- 1.25 mg per tablet Take 1 tablet by mouth once daily. aluminum hydrox-magnesium carb (GAVISCON) 95-358 mg/15 mL suspension Take 15 mL by mouth every 6 hours as needed. icosapent ethyl (VASCEPA) 1 gram cap Take by mouth. FAMILY HISTORY Problem Relation Age of Onset - Arthritis Mother rheumatoid - Heart Mother ND - Emphysema Maternal Grandmother Social History Substance Use Topics - Smoking status: Never Smoker - Smokeless tobacco: Never Used - Alcohol use Yes Comment: seldom PHYSICAL EXAM BP 138/84 Pulse 76 Temp 36.6 ?C (97.9 ?F) (Temporal Artery) Resp 16 Wt 99.3 kg (219 lb) SpO2 96% BMI 38.79 kg/m2 Appearance: well dressed well groomed, cooperative and pleasant Behavior: Tense and a little tearful Speech: fluent and coherent Mood: depressed Affect: appropriate Insight: good Judgment: good Lungs: Lungs clear to auscultation. No wheezing, rhonchi, rales Heart: RRR without murmur, gallop, or rubs. No ectopy ASSESSMENT/PLAN: 1. Uncontrolled type 2 diabetes mellitus without complication, without long-term current use of insulin (HCC) - ICD9: 250.02, ICD10: E11.65 (primary diagnosis) Uncontrolled prior to blood sugars in the 500's. Hyperglycemia likely due to steroid injection along with stress, diet and inactivity. - Continue current medications - Add sitagliptin phosphate (Januvia). Reviewed with patient warnings concerning use in patient's with pancreatitis history. Patient verbalized understanding and agreeable to start. Advised to discontinue use immediately and call office if she develops abdominal pain/discomfort - Blood glucose monitoring on a once a day schedule - Follow up in 4 weeks, sooner should any other issues arise. 2. Anxiety - ICD9: 300.00, ICD10: F41.9 Worsening depression and anxiety secondary to grief/stress Increase Cymbalta to 60 mg daily Follow-up as above - DULOXETINE 60 MG CAPSULE,DELAYED RELEASE 3. Reactive depression - ICD9: 300.4, ICD10: F32.9 As above - DULOXETINE 60 MG CAPSULE,DELAYED RELEASE Prescription instructions reviewed with patient as applicable. Potential red flag symptoms discussed with the patient. Reviewed appropriate action plan to take if red flag symptoms occur. 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 Patient states last week her blood sugars were in the 500's and she was feeling terrible. Thinks it is possibly due to the fact that she has a torn meniscus and has not been active and since she couldn't leave her house to go to the grocery store she has been eating a lot of junk food like cake and cookies. She also had steroid injection in her knee about two weeks ago. A lot of stress right now as well. Daughter in law committed suicide recently and still grieving over her 's . Blood sugars have been better this week, now in the high 200's and yesterday morning it was 164. Has been eating healthier foods and sticking with diabetic diet. Feeling better this week also but still really tired, nauseated and has not motivation to do anything. Denies excessive thirst, urinary frequency, numbness, tingling or pain in extremities, new or unusual visual symptoms, low sugar/hypoglycemic reactions She is compliant with medication(s) and is tolerating med(s) without any side effects. Only taking Invokana 300 mg daily. Prior to this was not checking blood sugars regularly but reports usually no higher than 200 when she does check. Patient's last HgA1C was Hemoglobin A1C (%) Date Value 03/15/2017 8.2 12/04/2016 7.8 ) REVIEW OF SYSTEMS See HPI PAST MEDICAL HISTORY Diagnosis Date - CARDIAC DYSRHYTHMIAS NEC 12/11/2004 - Diverticulitis 12/18/13 - DIVERTICULITIS OF COLON W/O BLEED 12/11/2004 - Hyperparathyroidism , secondary, non-renal (HCC) 06/20/2016 - ISOLATED OR SPECIFIC PHOBIAS NEC 12/11/2004 - LLQ pain 12/18/13 - OBESITY NOS 12/11/2004 - OSTEOARTHROS NOS-OTHER SITE 12/11/2004 L knee arthritis - PEPTIC ULCER NOS 12/11/2004 PAST SURGICAL HISTORY Procedure Laterality Date - APPENDECTOMY 12/18/[address] [facility] [address] Garcia - CARPAL TUNNEL 2000 lt - CATARACT SURGERY, COMPLEX bilateral - EGD W/O OR W/BRUSH/WASH 10/24 EGD - PAST SURGICAL HISTORY OF 05/05/2004 Arthroscopic debridement right shoulder and AC Resection - PAST SURGICAL HISTORY OF 1990 Bladder suspension/hysterectomy - PAST SURGICAL HISTORY OF 1995 rectocele - PAST SURGICAL HISTORY OF 1979 right and left varicose vein stripping - PAST SURGICAL HISTORY OF 05/2006 whipple procedure - PAST SURGICAL HISTORY OF 12/18/2013 sigmoid colectomy [facility] Dr Garcia - REMOVAL GALLBLADDER 1979 Cholecystectomy - REVISE MEDIAN N/CARPAL TUNNEL SURG 03/1998 Carpal tunnel decomp RIGHT - TUBAL LIGATION, 79 ALLERGIES Toradol [Ketorolac Tromethamine]; Redux; Rozerem [Ramelteon] MEDICATIONS oxyCODONE-acetaminophen (PERCOCET) 7.5-325 mg tablet Take 1 tablet by mouth every 6 hours as needed for Pain (increased frequency due to acute knee pain, continued chronic back pain) for up to 30 days. For severe pain.Earliest Fill Date: 04/14/17 Zolpidem (AMBIEN CR) 12.5 mg CR tablet Take 1 tablet by mouth daily at bedtime for 180 days. cyanocobalamin 1,000 mcg/mL soln Inject 1 mL intramuscularly once every month. oxyCODONE-acetaminophen (PERCOCET) 7.5-325 mg tablet Take 1 tablet by mouth twice daily as needed for up to 30 days. For severe pain. [START ON 05/14/2017] oxyCODONE-acetaminophen (PERCOCET) 7.5- 325 mg tablet Take 1 tablet by mouth twice daily as needed for up to 30 days. For severe pain.Earliest Fill Date: 05/14/17 codeine-guaiFENesin (GUAIFENESIN AC) 10-100 mg/5 mL syrup Take 5 mL by mouth once daily as needed for up to 90 days. cholecalciferol, Vitamin D3, (VITAMIN D3) 50,000 unit cap capsule Take 1 capsule by mouth twice a week. fluticasone (FLONASE) 50 mcg/actuation nasal spray Use 2 Sprays in each nostril once daily. Rinse mouth after use. ALPRAZolam (XANAX) 0.5 mg tablet TAKE 1 TABLET TWICE DAILY benzonatate (TESSALON PERLE) 100 mg capsule Take 1 capsule by mouth three times daily as needed. INVOKANA 300 mg tablet TAKE 1 TABLET BY MOUTH DAILY BEFORE BREAKFAST. Lancets lancets Test blood sugar(s) once or twice daily. Dx: E11.9. Med: Invokana. One touch meter. pravastatin (PRAVACHOL) 20 mg tablet Take 1 tablet by mouth daily at bedtime. irbesartan (AVAPRO) 300 mg tablet Take 1 tablet by mouth once daily. bumetanide (BUMEX) 0.5 mg tablet Take 1 tablet by mouth once daily. As directed (may decrease to every other day if no swelling recurs) nystatin (MYCOSTATIN) powder Apply 1 application to affected area three times daily. As directed for treatment of yeast infection blood sugar diagnostic (BLOOD GLUCOSE TEST) test strip Test blood sugar(s) once or twice daily. Dx: E11.9. Med: Invokana. One touch meter. diltiazem XR (DILTIA XT) 240 mg 24 hr capsule Take 1 capsule by mouth once daily. DULoxetine (CYMBALTA) 30 mg capsule Take 1 capsule by mouth once daily. esterified estrogens-methylTESTOSTERone (ESTRATEST HS) 0.625- 1.25 mg per tablet Take 1 tablet by mouth once daily. aluminum hydrox-magnesium carb (GAVISCON) 95-358 mg/15 mL suspension Take 15 mL by mouth every 6 hours as needed. icosapent ethyl (VASCEPA) 1 gram cap Take by mouth. FAMILY HISTORY Problem Relation Age of Onset - Arthritis Mother rheumatoid - Heart Mother ND - Emphysema Maternal Grandmother Social History Substance Use Topics - Smoking status: Never Smoker - Smokeless tobacco: Never Used - Alcohol use Yes Comment: seldom PHYSICAL EXAM BP 138/84 Pulse 76 Temp 36.6 ?C (97.9 ?F) (Temporal Artery) Resp 16 Wt 99.3 kg (219 lb) SpO2 96% BMI 38.79 kg/m2 Appearance: well dressed well groomed, cooperative and pleasant Behavior: Tense and a little tearful Speech: fluent and coherent Mood: depressed Affect: appropriate Insight: good Judgment: good Lungs: Lungs clear to auscultation. No wheezing, rhonchi, rales Heart: RRR without murmur, gallop, or rubs. No ectopy ASSESSMENT/PLAN: 1. Uncontrolled type 2 diabetes mellitus without complication, without long-term current use of insulin (HCC) - ICD9: 250.02, ICD10: E11.65 (primary diagnosis) Uncontrolled prior to blood sugars in the 500's. Hyperglycemia likely due to steroid injection along with stress, diet and inactivity. - Continue current medications - Add sitagliptin phosphate (Januvia). Reviewed with patient warnings concerning use in patient's with pancreatitis history. Patient verbalized understanding and agreeable to start. Advised to discontinue use immediately and call office if she develops abdominal pain/discomfort - Blood glucose monitoring on a once a day schedule - Follow up in 4 weeks, sooner should any other issues arise. 2. Anxiety - ICD9: 300.00, ICD10: F41.9 Worsening depression and anxiety secondary to grief/stress Increase Cymbalta to 60 mg daily Follow-up as above - DULOXETINE 60 MG CAPSULE,DELAYED RELEASE 3. Reactive depression - ICD9: 300.4, ICD10: F32.9 As above - DULOXETINE 60 MG CAPSULE,DELAYED RELEASE Prescription instructions reviewed with patient as applicable. Potential red flag symptoms discussed with the patient. Reviewed appropriate action plan to take if red flag symptoms occur. Patient agreeable to treatment plan Raven Blood APRN.SUSTAINABLE AGRICULTURE SPECIALIST Referring Provider: SELF [200] Allergies As of Date: 05/08/2017 Noted Allergy Reaction TORADOL (KETOROLAC TROMETHAMINE) 11/16/2004 7 - Swelling Comments: itching REDUX 11/05/2016 1 - Mental Status Change Comments: nightmares ROZEREM (RAMELTEON) 06/20/2016 5 - Intolerance Comments: [place] paralyzed and gave her nightmares Date Reviewed: 05/08/2017 Reviewed by: Yodit Campa Stallion Manager - Fully Assessed Reason for Visit: blood sugar readings [Other] Cmt: elevated Primary Visit Diagnosis:Uncontrolled type 2 diabetes mellitus without complication, without long-term current use of insulin (HCC) [E11.65] Other Visit Diagnoses:Anxiety [F41.9] Reactive depression [F32.9] Order(s):sitaGLIPtin (JANUVIA) 100 mg tabletTake 1 tablet by mouth once daily.Disp: 30 tabletRfl: 1 DULoxetine (CYMBALTA) 60 mg capsuleTake 1 capsule by mouth once daily.Disp: 90 capsuleRfl: 1 canagliflozin (INVOKANA) 300 mg tabletTake 1 tablet by mouth daily before breakfast.Disp: 90 tabletRfl: 1 Prescriptions as of 05/08/2017 Sig: DULOXETINE 60 MG CAPSULE,MEHRDAD* Take 1 capsule by mouth once * CANAGLIFLOZIN 300 MG TABLET Take 1 tablet by mouth daily * OXYCODONE-ACETAMINOPHEN 7.5 M* Take 1 tablet by mouth every * ZOLPIDEM ER 12.5 MG TABLET,EX* Take 1 tablet by mouth daily * CYANOCOBALAMIN (VIT B-12) 1,0* Inject 1 mL intramuscularly o* OXYCODONE-ACETAMINOPHEN 7.5 M* Take 1 tablet by mouth twice * OXYCODONE-ACETAMINOPHEN 7.5 M* Take 1 tablet by mouth twice * CODEINE 10 MG-GUAIFENESIN 100* Take 5 mL by mouth once daily* CHOLECALCIFEROL (VITAMIN D3) * Take 1 capsule by mouth twice* FLUTICASONE 50 MCG/ACTUATION * Use 2 Sprays in each nostril * ALPRAZOLAM 0.5 MG TABLET TAKE 1 TABLET TWICE DAILY BENZONATATE 100 MG CAPSULE Take 1 capsule by mouth three* LANCETS Test blood sugar(s) once or t* PRAVASTATIN 20 MG TABLET Take 1 tablet by mouth daily * IRBESARTAN 300 MG TABLET Take 1 tablet by mouth once d* BUMETANIDE 0.5 MG TABLET Take 1 tablet by mouth once d* NYSTATIN 100,000 UNIT/GRAM TO* Apply 1 application to affect* BLOOD SUGAR DIAGNOSTIC STRIPS Test blood sugar(s) once or t* DILTIAZEM XR 240 MG CAP Take 1 capsule by mouth once * ESTERIFIED ESTROGENS-METHYLTE* Take 1 tablet by mouth once d* ALUMINUM HYDROX-MAGNESIUM CAR* Take 15 mL by mouth every 6 h* ICOSAPENT ETHYL 1 GRAM CAPSULE Take by mouth. SITAGLIPTIN 100 MG TABLET Take 1 tablet by mouth once d* Problem List As Of Date 05/08/2017 Noted Resolved Primary osteoarthritis involving multiple joint*INVALID FOR* More... Obesity [E66.9] INVALID FOR* MYALGIA AND MYOSITIS NOS [DCV2037] INVALID FOR* Chronic Pancreatitis [K86.1] INVALID FOR* Osteopenia [M85.80] INVALID FOR* More... Essential hypertension [I10] INVALID FOR* Hypertriglyceridemia [E78.1] INVALID FOR* Diabetes mellitus type II INVALID FOR*10/05/2013 Depression [F32.9] INVALID FOR* Atrial fibrillation [I48.91] INVALID FOR* Vitamin D deficiency [E55.9] INVALID FOR* Anxiety [F41.9] INVALID FOR* Controlled substance agreement signed [Z79.899] INVALID FOR* Diabetes (HCC) [E11.9] INVALID FOR*08/14/2015 Stress and adjustment reaction [F43.29] INVALID FOR* Chronic abdominal pain [R10.9, G89.29] INVALID FOR* ADD (attention deficit disorder) without hypera*INVALID FOR* Hyperparathyroidism , secondary, non-renal (HCC*INVALID FOR* Hyperparathyroidism, primary (HCC) [E21.0] INVALID FOR* Prescriptions ordered this encounter Disp Refills Start End SITAGLIPTIN 100 MG TABLET 30 t* 1 05/08/2017 Route: ORAL Sig: Take 1 tablet by mouth once daily. DULOXETINE 60 MG CAPSULE,DELAYED REL* 90 c* 1 05/08/2017 Route: ORAL Sig: Take 1 capsule by mouth once daily. CANAGLIFLOZIN 300 MG TABLET 90 t* 1 05/08/2017 Route: ORAL Sig: Take 1 tablet by mouth daily before breakfast. Medications Discontinued During This Encounter DULoxetine (CYMBALTA) 30 mg capsule 90 c* 3 08/31/2016 05/08/2017 Route: ORAL Sig: Take 1 capsule by mouth once daily. Disc: Reason for discontinue is not on file. INVOKANA 300 mg tablet 90 t* 0 01/24/2017 05/08/2017 Sig: TAKE 1 TABLET BY MOUTH DAILY BEFORE BREAKFAST. Disc: Reason for discontinue is not on file. Encounter Status:Closed by RAVEN BLOOD CNP on 05/08/17 ORTHOPEDIC VISIT Observed: 05/07/2017 Status: F Source: JAMIE REPORT 2:40 PM [facility] REPOSITORY [facility] Orthopaedics AND Sports Medicine [address] [place] [address] OFFICE VISIT Date of Service: 05/07/17 MR#: [id number] Acct: [id number] Name: KATHERIN MARTIN Rep #: [id number] : 1940 Provider: Mendy Walker DO Age/Sex: 76/F Location: [facility] Status: Signed Intake Intake Visit Reasons: right knee Is patient in pain?: Yes Allergies bupropion Adverse Reaction (Verified 04/23/17 09:50) Other bupropion HCl [From Wellbutrin] Adverse Reaction (Verified 04/23/17 09:50) Other dexfenfluramine HCl [From Redux] Adverse Reaction (Verified 04/23/17 09:50) Unknown hydrochlorothiazide Adverse Reaction (Verified 04/23/17 09:50) Other ketorolac tromethamine [From Toradol] Adverse Reaction (Verified 04/23/17 09:50) Itching oxaprozin [From Daypro] Adverse Reaction (Verified 04/23/17 09:50) Other Medications ALPRAZolam [Xanax] 0.5 mg PO BID 12/11/13 [History Confirmed 04/23/17] Bumetanide [Bumex] 0.5 mg PO DAILY 12/11/13 [History Confirmed 04/23/17] Diltiazem CD [Cardizem CD] 240 mg PO DAILY 12/11/13 [History Confirmed 04/23/17] Irbesartan [Avapro] 300 mg PO DAILY 12/11/13 [History Confirmed 04/23/17] Pravastatin [Pravachol] 20 mg PO QHS 12/11/13 [History Confirmed 04/23/17] Zolpidem Tartrate [Ambien Cr] 12.5 mg PO QHS 12/11/13 [History Confirmed 04/23/17] Canagliflozin [Invokana] 300 mg PO DAILY 09/12/16 [History Confirmed 04/23/17] Duloxetine HCl 30 mg PO DAILY 09/12/16 [History Confirmed 04/23/17] Oxycodone HCl/Acetaminophen [Percocet 7.5-325 mg Tablet] 1 ea PO BID 09/12/16 [History Confirmed 04/23/17] PFSH Medical History whipple surgery (Inactive) Surgical History History of bilateral carpal tunnel release (Inactive) History of bladder suspension procedure (Inactive) History of hysterectomy (Inactive) S/P cholecystectomy (Inactive) sigmoid colon removed (Inactive) vaginal wall repaired (Inactive) Family History Mother Myocardial infarction Social History Smoking Status: Never smoker HPI right knee: Details: KATHERIN MARTIN is a 76 year old F here today for a followup after her right knee MRI. She states that her knee pain is worsening. Patient has pain over her medial knee. Patient has popping and clicking. She has knee swelling. She is ambulating with a walker due to her knee pain. She notes that she had an aspiration and injection which was helpful, although her pain has gradually worsened. Her MRI is here for review. She did have a large spike in her blood sugar due to the last injection. ROS Const Reports system reviewed and no additional complaints, except as docu Eyes Reports system reviewed and no additional complaints, except as docu ENT Reports system reviewed and no additional complaints, except as docu Card Reports system reviewed and no additional complaints, except as docu Resp Reports system reviewed and no additional complaints, except as docu GI Reports system reviewed and no additional complaints, except as docu Reports system reviewed and no additional complaints, except as docu Musc Reports joint pain, Reports joint swelling, Reports muscle weakness Skin/Breast Reports system reviewed and no additional complaints, except as docu Neuro Yes system reviewed and no additional complaints, except as docu Psych Reports system reviewed and no additional complaints, except as docu Endo Reports system reviewed and no additional complaints, except as docu Ortho Exam Right Knee Skin/Wound: Yes CDI Contralateral Normal: Yes Swelling: Yes Homans Sign: No 1+: Effusion Knee ROM: Yes ROM-Flexion 0-140 (90), Yes ROM-Extension -20 to 0 (5) Examination: Yes Med jt line tenderness, Yes Pain with extention, Yes Pain with flexion, Yes Crepitus Assessment AND Plan 1. Acute medial meniscus tear of right knee, subsequent encounter S83.241D Plan scope will not help oa, but can help with the pain and instability. patient will follow up with us 2 wks after operation. Personally reviewed the MRI and explained that she has a medial meniscus tear, medial femoral condyle edema and OA noted. Her treatment option is to scope to debride and remove the flap and chondroplasty. Discussed that most people at her age a tka is course of treatment but her OA is not her cause of pain. Explained her post op restrictions and increased pain with chondroplasty. Reviewed the pre-operative plans with the patient. Risks and benefits of the procedure were fully explained, including but not limited to infection, neurovascular injury, continued pain, arthritis, stiffness, need for further surgery, re-injury, DVT, PE, general risks of anesthesia, and loss of limb or life. The patient understands all the risks and does wish to proceed with written consent. Follow up post op or sooner if pain, swelling, numbness or associated symptoms, or concerns develop. All questions answered. Patient in agreement of plan. Coding Level of Care Code Off vis,est,level 4 Diagnoses Acute medial meniscus tear of right knee, subsequent encounter S83.241D Encounter type: subsequent encounter 05/07/17 1440 <Electronically signed by Mendy Walker DO> Date Mendy Walker DO Cosigner Signature: Date (if applicable) CC: LOWER EXT JOINT ONLY Observed: 05/02/2017 Status: F Source: [place]UM[place] (ROUTINE) 1:09 PM [facility] REPOSITORY [facility] Imaging Services [address] [place] [id number] Lower Ext Joint Only (Routine) MR#: [id number] Acct: [id number] Name: KATHERIN MARTIN Rep #: [id number] : 1940 F 76 From: Lennox Miranda MD PCP: Care Physician, No Primary Status: REG CLI Study: Lower Ext Joint Only (Routine) Date of Exam: 05/02/17 Exam# [id number] Ordering Dr: Mendy Walker DO STUDY: MRI RIGHT KNEE REASON FOR EXAM: Medial knee pain after slipping injury 04/01/2017. TECHNIQUE: Standardized fat and water weighted pulse sequences were obtained in all 3 orthogonal planes. COMPARISON: Radiographs 04/05/2017. FINDINGS: There is a flap tear of the medial meniscus with a displaced fragment at the superior aspect of the posterior horn/body junction of the medial meniscus (proton-density coronal images 14-17). There is mild arthrosis of the medial femorotibial compartment with mild chondral thinning of the medial femoral condyle (T2 sagittal image 19). There is a subchondral stress fracture of the medial femoral condyle (proton-density coronal images 17-19) with bone edema. Normal medial collateral ligamentous complex (MCL). Normal distal semimembranosus, gracilis and semitendinosus tendons. Normal lateral meniscus. Normal hyaline cartilage of the lateral femorotibial compartment. Normal lateral femoral condyle and tibial plateau. Normal proximal tibiofibular articulation. Normal lateral collateral (fibular) ligament. Normal popliteus tendon. Normal biceps femoris tendon. Normal anterior cruciate ligament (ACL). Normal posterior cruciate ligament (PCL). Normal congruent patellofemoral articulation. There is mild arthrosis of the patellofemoral compartment with mild chondral thinning (T2 sagittal image 14). Normal medial and lateral patellar retinaculum. Normal visualized quadriceps tendon. Normal patellar tendon. Normal Hoffa's fat pad. There is a small joint effusion. There is a thin medial patellar plica. There is mild edema in the anterior subcutis adipose space. The otherwise visualized osseous structures are unremarkable. MRI/Lower Ext Joint Only (Routine) IMPRESSION: Medial meniscal tear. Subchondral stress fracture of the medial femoral condyle. Mild arthrosis of the medial femorotibial and patellofemoral compartments. Small joint effusion. Electronically Signed: Lennox Miranda MD at 15:13 EDT Tel , Service support , CC: No Primary Care Physician; Mendy Chicorelli DO Automation Controls Specialist: Signed Observed: 04/23/2017 Status: F Source: JAMIE CULTURE, BODY FLUID 12:15 PM [facility] REPOSITORY List Antibiotics Last 48 Hours? UNK List Antibiotics to be Started? UNK Gram Stain Centrifuged Specimen? Culture performed on centrifuged specimen Gram Stain Rare White Blood Cells Red Cell Stroma No organisms seen Body Fluid Cult NO GROWTH IN 14 DAYS Cult, Anaerobic No growth in 5 days. Performed By: #### M100.1300, L200.0400, L200.4175 #### [facility] [address] [place], [place], [id number] SYNOVIAL FLUID RBC, Collected: 04/23/2017 Status: F Source: JAMIE WBC AND DIFF 12:15 PM [facility] REPOSITORY TYPE CODE TESTS RESULT OUT OF RANGE REFERENCE UNITS LAB L200.4600 Normal SYNOVIAL RIGHT SOURCE KNEE Result Comment: 50 cells counted. AMENDED REPORT 04/23/17 1407 SYNOVIAL SOURCE previously reported as: RIGHT KNEE LAB L200.4800 HIGH VISCOSITY/SYFL Normal Sl. Viscous LAB L200.4900 Pale Yellow SYNOVIAL COLOR Normal YELLOW LAB L200.5000 CLEAR SYNOVIAL CHRIS. Normal Clear LAB L200.5050 0.000-0.000 10 3 uL SYN Tot Cell Ct High 0.4880 Result Comment: This is the Total Number of Nucleated Cell Types in the Body Fluid. LAB L200.5100 0 /mm3 High SYNOVIAL RBC 176 LAB L200.5200 0.000-0 10 3uL High .002 SYNOVIAL WBC 0.4670 LAB L200.5260 % SYBF PMN Normal WBC% 24.6 LAB L200.5270 10 3/ul SYBF PMN Normal WBC# 0.115 LAB L200.5280 % SYBF MN Normal WBC% 75.4 LAB L200.5290 10 3/ul SYBF MN Normal WBC# 0.352 LAB L200.5800 PATH Normal COM/SYFL May follow LAB L200.5300 0-25 % NEUTROPHIL Normal 8 LAB L200.5400 % LYMPH Normal 28 LAB L200.5500 % MONO Normal 64 Performed By: #### M100.1300, L200.0400, L200.4175 #### [facility] [address] [place], [address] CRYSTALS, BODY FLUID Collected: 04/23/2017 Status: F Source: JAMIE 12:15 PM [facility] REPOSITORY TYPE CODE TESTS RESULT OUT OF RANGE REFERENCE UNITS LAB L200.4200 Normal SEE PATH REV CRYSTALS/BF LAB L200.4225 Normal SYNOVIAL SOURCE/BF LAB L200.6020 Normal PATH Reviewed REV Result Comment: Negative for malignant cells. No diagnostic crystals present. [place] D.O. 04/25/17 Performed By: #### M100.1300, L200.0400, L200.4175 #### [facility] [address] [place], [address] GLUCOSE, SYNOVIAL Collected: 04/23/2017 Status: F Source: JAMIE FLUID 12:15 PM [facility] REPOSITORY Order Comment: Specimen Source: SYNOVIAL TYPE CODE TESTS RESULT OUT OF RANGE REFERENCE UNITS LAB L3800.0101 . mg/dL Normal GLU, SYN 208 FLD Result Comment: : Peritoneal : Pleural : Synovial : : : : : : : Transudate : Exudate : : : : : : : : Not Estab. : Equal to simultaneously drawn plasma : : : : The method performance specifications have not been established for this test in body fluid. The test result should be integrated into clinical context for interpretation. The reference intervals and other method performance specifications have not been established for this test. The test result should be integrated into the clinical context for interpretation. Performed By: #### L3800.0101 #### [facility] (refer to report for specific site) refer to report for address and phone number ORTHOPEDIC VISIT Observed: 04/23/2017 Status: F Source: JAMIE REPORT 11:49 AM [facility][1] Orthopaedics AND Sports Medicine [address] [place] [address] [address] [place] [address] OFFICE VISIT Date of Service: 04/23/17 MR#: [id number] Acct: [id number] Name: KATHERIN MARTIN Rep #: [id number] : 1940 Provider: Mendy Walker DO Age/Sex: 76/F Location: [facility] [place] Status: Signed with Addenda ADDENDUM by Mendy Walker DO on 04/23/17 at 1149 Addendum entered and electronically signed by Mendy Walker DO 04/23/17 11:49: patient was kept in office for 5 mins to ensure no adverse reaxn to steroid injecxn. tolerated injection well. after MRI will discuss possible arthroscopy. did not land directly onto knee and does not have bone pain - xrays show minimal oa of med joint line. all above were discussed with patient. 04/23/17 1149 <Electronically signed by Mendy Walker DO> Date Mendy Walker DO cc: * Signed Intake Vital Signs04/23/17 Height 5 ft 3 in 04/23/17 Weight: 211 lb 04/23/17 Body Mass Index (BMI) 37.3 Intake Visit Reasons: RIGHT KNEE Is patient in pain?: Yes Pain scale (1-10): 6 Allergies bupropion Adverse Reaction (Verified 04/23/17 09:50) Other bupropion HCl [From Wellbutrin] Adverse Reaction (Verified 04/23/17 09:50) Other dexfenfluramine HCl [From Redux] Adverse Reaction (Verified 04/23/17 09:50) Unknown hydrochlorothiazide Adverse Reaction (Verified 04/23/17 09:50) Other ketorolac tromethamine [From Toradol] Adverse Reaction (Verified 04/23/17 09:50) Itching oxaprozin [From Daypro] Adverse Reaction (Verified 04/23/17 09:50) Other Medications ALPRAZolam [Xanax] 0.5 mg PO BID 12/11/13 [History Confirmed 04/23/17] Bumetanide [Bumex] 0.5 mg PO DAILY 12/11/13 [History Confirmed 04/23/17] Diltiazem CD [Cardizem CD] 240 mg PO DAILY 12/11/13 [History Confirmed 04/23/17] Irbesartan [Avapro] 300 mg PO DAILY 12/11/13 [History Confirmed 04/23/17] Pravastatin [Pravachol] 20 mg PO QHS 12/11/13 [History Confirmed 04/23/17] Zolpidem Tartrate [Ambien Cr] 12.5 mg PO QHS 12/11/13 [History Confirmed 04/23/17] Canagliflozin [Invokana] 300 mg PO DAILY 09/12/16 [History Confirmed 04/23/17] Duloxetine HCl 30 mg PO DAILY 09/12/16 [History Confirmed 04/23/17] Oxycodone HCl/Acetaminophen [Percocet 7.5-325 mg Tablet] 1 ea PO BID 09/12/16 [History Confirmed 04/23/17] [facility] Medical History whipple surgery (Inactive) Surgical History History of bilateral carpal tunnel release (Inactive) History of bladder suspension procedure (Inactive) History of hysterectomy (Inactive) S/P cholecystectomy (Inactive) sigmoid colon removed (Inactive) vaginal wall repaired (Inactive) Family History Mother Myocardial infarction Social History Smoking Status: Never smoker HPI RIGHT KNEE: Details: KATHERIN MARTIN is a 76 year old F here today for right knee. She states about 2 weeks ago she stepped out of the car, slide on ice and heard it snap. She complains of constant anterior and medial knee pain. She denies radiation of pain. Constant swelling but improving over time. No tingling/numbness. She states she hears/feels a snap frequently in her knee that sends a lightning bolt pain in her knee. She was having issues with it giving out but this has resolved. She has been seen in [place] ER twice since her injury due to her pain and trouble walking. She had had prior x-ray at [facility] and was given a shot in her butt(unknown when was given per patient). She has followed up with Dr. Reaves who referred her to our office. She does take Percocet for her back which does help with her knee. ROS Const Reports system reviewed and no additional complaints, except as docu Eyes Reports system reviewed and no additional complaints, except as docu ENT Reports system reviewed and no additional complaints, except as docu Card Reports system reviewed and no additional complaints, except as docu Resp Reports system reviewed and no additional complaints, except as docu GI Reports system reviewed and no additional complaints, except as docu Reports system reviewed and no additional complaints, except as docu Musc Reports joint pain, Reports joint swelling Skin/Breast Reports system reviewed and no additional complaints, except as docu Neuro Yes system reviewed and no additional complaints, except as docu Psych Reports system reviewed and no additional complaints, except as docu Endo Reports system reviewed and no additional complaints, except as docu Yousuf/Lymph Reports system reviewed and no additional complaints, except as docu Aller/Immun Reports system reviewed and no additional complaints, except as docu Ortho Exam Right Knee Skin/Wound: Yes CDI Contralateral Normal: Yes Swelling: Yes Knee ROM: Yes ROM-Extension -20 to 0 Examination: Yes Med jt line tenderness, Yes Pain with flexion, No Pain with extention KNEE: weakness on exam Office Procedures Ortho Injections Injections Yes Knee Right Details: Obtained consent for injection. Under sterile conditions, aspirated 30cc and injected the patients right knee with a 10cc cocktail of 8cc bupivacaine and 2cc kenalog. The patient tolerated the injection well without any noted complication. Patient should call our office if redness develops, pain worsens or if they have any concerns. Office Meds Kenalog Performing Provider: Mendy Walker DO Administered by: Mendy Walker DO on 04/23/17 10:26 Dose Route Admin Location Lot Number Expiration DateNDC Cnc Mill Set Up Operator 2 mg Intra-Articularright knee [id number] 09/18/18 7459-1298-01 [employer] Assessment AND Plan 1. Acute pain of right knee M25.561 Plan Personally reviewed the patient's medical history, medications, surgeries and recent exams if available. X-rays were reviewed. There is no obvious fracture, dislocation, or lucency noted. Educated the patient on the anatomy of the knee and etiology of her pain. Explained that she has likely torn her meniscus, her treatment options are do nothing, injections, MRI for eval, PT and/or bracing. Due to her tenderness to touch and her mechanism of injury we will order and MRI. Educated to monitor her blood sugar due to her diabetes the injection will increase it and to monitor for flushing. Follow up after mri or sooner if pain, swelling, numbness or associated symptoms, or concerns develop. All questions answered. Patient in agreement of plan. Orders Orders: 2. Acute medial meniscus tear of right knee, initial encounter S83.241A Orders Orders: Medications Discontinued: Kenalog (triamcinolone acetonide) Disc2 mg (0.2 mL) Intra- Articular ONCE NS Romario Nelson ontinued Reason: Office Medication has b een Documented as given Plan Detail Other Orders Orders: Coding Level of Care Code Off vis,new,level 3 Diagnoses Acute pain of right knee M25.561 Chronicity: acute Acute medial meniscus tear of right knee, initial encounter S83.241A Encounter type: initial encounter Additional Codes hat and cap parts cutter hand.knee ([id number]) 04/23/17 1146 <Electronically signed by Mendy Walker DO> Date Mendy Walker DO Cosigner Signature: Date (if applicable) CC: ALBUMIN/CREAT RATIO Collected: 04/23/2017 Status: F Source: LAJAS 11:25 AM [facility] TYPE CODE TESTS RESULT OUT OF REFERENCE UNITS RANGE LAB UCRR 20-300 mg/dL 59.1 Creatinine,Ur ine,Ran LAB UALBR 0.0-23.0 mg/L <12.0 Albumin Urine Random LAB UALBCR 0-30 mg/g Not Albumin/Creat calculated Ratio Performed By: #### UACR #### [facility] [address] [place], [place] [address] PROGRESS Observed: 04/11/2017 Status: COMPLETED Source: [place] 2:26 PM [facility] REPOSITORY HNO ID: [id number] Author: Kingsley (Chung) CHUNG Santos Service: (none) Author Type: Nurse Specialist Type: Progress Notes Filed: 04/11/2017 3:20 PM Note Text: OUTPATIENT VISIT DATE April 11, 2017 OUTPATIENT VISIT TYPE ESTABLISHED PRIMARY CARE PHYSICIAN: Moo Reaves MD CHIEF COMPLAINT: Patient presents with: Hospital F/U: R knee injury History of Present Illness: Katherin Martin is a 76 year old female who was last seen 02/2017. She has been seen in the past for ACTIVE PROBLEM LIST Other Specified Cardiac Dysrhythmias(427.89) Primary Osteoarthritis Involving Multiple Joints Obesity Diverticulitis of Colon (Without Mention of Hemorrhage)(562.11) Other Isolated Or Specific Phobias Peptic Ulcer, Unspecified Site, Unspecified As Acute Or Chronic, Without Mention of Hemorrhage, Perforation, Or Obstruction Myalgia and Myositis, Unspecified Transient Disorder of Initiating Or Maintaining Sleep Bicipital Tenosynovitis Other Affections of Shoulder Region, Not Elsewhere Classified Abdominal Pain, Right Upper Quadrant Chronic Pancreatitis (Hcc) Osteopenia Essential Hypertension Hypertriglyceridemia Depression Atrial Fibrillation (Hcc) Vitamin D Deficiency Vaginal Dryness, Menopausal Menopausal Hot Flushes Other Speech Disturbance(784.59) Other Voice and Resonance Disorders Decreased Libido Drug-Drug Interaction Anxiety Controlled Substance Agreement Signed Left Lower Quadrant Pain Incisional Hernia Abnormal Ecg Type 2 Diabetes Mellitus Without Complication, Without Long- Term Current Use of Insulin (Hcc) Stress and Adjustment Reaction Chronic Abdominal Pain Add (Attention Deficit Disorder) Without Hyperactivity Hyperparathyroidism , Secondary, Non-Renal (Hcc) Hyperparathyroidism, Primary (Hcc) Presents today for ER follow-up. She was seen at [facility] on March 05 in March 07 for right knee pain and sprain. She reported getting out of car and twisting her right knee. She needed to be on her feet for several days following this due to a in the family. She developed swelling and pain following this. X-ray of the knee on April 05 showed joint effusion with medial and patellofemoral compartment arthrosis, no acute abnormality. Ultrasound lower extremity was completed and showed no DVT. She presents today with report of feeling and hearing a click in her knee. Pain is increased when she's walking. She was using a walker for a period of time which helped somewhat. She is icing her knee which is helping somewhat. She has increased her use of Percocet due to knee pain as advised in the emergency department. She will be running out of her medication a little sooner than usual. She's been using an Chas wrap which has helped as well. She has not seen orthopedic physician yet. She is in need of referral. PAST MEDICAL HISTORY Diagnosis Date - CARDIAC DYSRHYTHMIAS NEC 12/11/2004 - Diverticulitis 12/18/13 - DIVERTICULITIS OF COLON W/O BLEED 12/11/2004 - Hyperparathyroidism , secondary, non-renal (HCC) 06/20/2016 - ISOLATED OR SPECIFIC PHOBIAS NEC 12/11/2004 - LLQ pain 12/18/13 - OBESITY NOS 12/11/2004 - OSTEOARTHROS NOS-OTHER SITE 12/11/2004 L knee arthritis - PEPTIC ULCER NOS 12/11/2004 PAST SURGICAL HISTORY Procedure Laterality Date - APPENDECTOMY 12/18/2013 [facility] [address] Garcia - CARPAL TUNNEL 2000 lt - CATARACT SURGERY, COMPLEX bilateral - EGD W/O OR W/BRUSH/WASH 10/24 EGD - PAST SURGICAL HISTORY OF 05/05/2004 Arthroscopic debridement right shoulder and AC Resection - PAST SURGICAL HISTORY OF 1990 Bladder suspension/hysterectomy - PAST SURGICAL HISTORY OF 1995 rectocele - PAST SURGICAL HISTORY OF 1979 right and left varicose vein stripping - PAST SURGICAL HISTORY OF 05/2006 whipple procedure - PAST SURGICAL HISTORY OF 12/18/2013 sigmoid colectomy [facility] Dr Garcia - REMOVAL GALLBLADDER 1979 Cholecystectomy - REVISE MEDIAN N/CARPAL TUNNEL SURG 03/1998 Carpal tunnel decomp RIGHT - TUBAL LIGATION, 80 FAMILY HISTORY Problem Relation Age of Onset - Arthritis Mother rheumatoid - Heart Mother ND - Emphysema Maternal Grandmother Social History Substance Use Topics - Smoking status: Never Smoker - Smokeless tobacco: Never Used - Alcohol use Yes Comment: seldom ALLERGIES: ALLERGIES Allergen Reactions - Toradol [Ketorolac * Swelling itching - Redux Mental Status Change nightmares - Rozerem [Ramelteon] Intolerance [place]age paralyzed and gave her nightmares MEDICATIONS [START ON 04/14/2017] oxyCODONE-acetaminophen (PERCOCET) 7.5- 325 mg tablet Take 1 tablet by mouth every 6 hours as needed for Pain (increased frequency due to acute knee pain, continued chronic back pain) for up to 30 days. For severe pain.Earliest Fill Date: 04/14/17 Zolpidem (AMBIEN CR) 12.5 mg CR tablet Take 1 tablet by mouth daily at bedtime for 180 days. cyanocobalamin 1,000 mcg/mL soln Inject 1 mL intramuscularly once every month. oxyCODONE-acetaminophen (PERCOCET) 7.5-325 mg tablet Take 1 tablet by mouth twice daily as needed for up to 30 days. For severe pain. [START ON 05/14/2017] oxyCODONE-acetaminophen (PERCOCET) 7.5- 325 mg tablet Take 1 tablet by mouth twice daily as needed for up to 30 days. For severe pain.Earliest Fill Date: 05/14/17 codeine-guaiFENesin (GUAIFENESIN AC) 10-100 mg/5 mL syrup Take 5 mL by mouth once daily as needed for up to 90 days. cholecalciferol, Vitamin D3, (VITAMIN D3) 50,000 unit cap capsule Take 1 capsule by mouth twice a week. fluticasone (FLONASE) 50 mcg/actuation nasal spray Use 2 Sprays in each nostril once daily. Rinse mouth after use. ALPRAZolam (XANAX) 0.5 mg tablet TAKE 1 TABLET TWICE DAILY benzonatate (TESSALON PERLE) 100 mg capsule Take 1 capsule by mouth three times daily as needed. INVOKANA 300 mg tablet TAKE 1 TABLET BY MOUTH DAILY BEFORE BREAKFAST. Lancets lancets Test blood sugar(s) once or twice daily. Dx: E11.9. Med: Invokana. One touch meter. pravastatin (PRAVACHOL) 20 mg tablet Take 1 tablet by mouth daily at bedtime. irbesartan (AVAPRO) 300 mg tablet Take 1 tablet by mouth once daily. bumetanide (BUMEX) 0.5 mg tablet Take 1 tablet by mouth once daily. As directed (may decrease to every other day if no swelling recurs) nystatin (MYCOSTATIN) powder Apply 1 application to affected area three times daily. As directed for treatment of yeast infection blood sugar diagnostic (BLOOD GLUCOSE TEST) test strip Test blood sugar(s) once or twice daily. Dx: E11.9. Med: Invokana. One touch meter. diltiazem XR (DILTIA XT) 240 mg 24 hr capsule Take 1 capsule by mouth once daily. DULoxetine (CYMBALTA) 30 mg capsule Take 1 capsule by mouth once daily. esterified estrogens-methylTESTOSTERone (ESTRATEST HS) 0.625- 1.25 mg per tablet Take 1 tablet by mouth once daily. aluminum hydrox-magnesium carb (GAVISCON) 95-358 mg/15 mL suspension Take 15 mL by mouth every 6 hours as needed. icosapent ethyl (VASCEPA) 1 gram cap Take by mouth. REVIEW OF SYSTEMS: GENERAL: Negative for: Weight loss or gain, Fever or Chills, Weakness and Sleep difficulties. Physical Examination: BP 122/74 Pulse 68 Resp 16 Wt 223 lb (101.2kg) Extended Vitals not filed for this encounter. General appearance: Well appearing, alert, in no acute distress, well-hydrated, well nourished. Skin: Skin color, texture, turgor normal, no suspicious rashes or lesions Neck: Supple, no adenopathy; thyroid symmetric, normal size, no bruits Lungs: Lungs clear to auscultation. No wheezing, rhonchi, rales Heart: RRR without murmur, gallop, or rubs. Abdomen: Abdomen soft, non-tender. Bowel sounds normal. No masses, organomegaly Extremities: + anterior swelling right knee, tender to palpation medial knee, increased pain with [id number] and abduction. no skin discoloration, clubbing or cyanosis. Good capillary refill. Musculoskeletal: Spine range of motion normal. Muscular strength intact, No joint swelling, deformity, or tenderness Peripheral pulses: Normal Neuro: Gait normal. . Sensation grossly intact. Reviewed chart, outside records, tests I personally interviewed, confirmed and edited the above information if obtained by others. TESTING: Glucose (mg/dL) Date Value 12/04/2016 174 Potassium (mmol/L) Date Value 12/04/2016 4.0 Sodium (mmol/L) Date Value 12/04/2016 137 Chloride (mmol/L) Date Value 12/04/2016 99 CO2 (mmol/L) Date Value 12/04/2016 20 Creatinine (mg/dL) Date Value 12/04/2016 0.63 BUN (mg/dL) Date Value 12/04/2016 23 Anion Gap (mmol/L) Date Value 12/04/2016 18 Calcium (mg/dL) Date Value 12/04/2016 10.7 Glucose (mg/dL) Date Value 12/04/2016 174 Potassium (mmol/L) Date Value 12/04/2016 4.0 Sodium (mmol/L) Date Value 12/04/2016 137 Chloride (mmol/L) Date Value 12/04/2016 99 CO2 (mmol/L) Date Value 12/04/2016 20 Creatinine (mg/dL) Date Value 12/04/2016 0.63 BUN (mg/dL) Date Value 12/04/2016 23 Anion Gap (mmol/L) Date Value 12/04/2016 18 Calcium (mg/dL) Date Value 12/04/2016 10.7 Protein, Total (g/dL) Date Value 03/15/2016 6.9 Albumin (g/dL) Date Value 03/15/2016 4.5 Bilirubin, Total (mg/dL) Date Value 03/15/2016 0.4 Alkaline Phosphatase (U/L) Date Value 03/15/2016 80 AST (U/L) Date Value 03/15/2016 20 ALT (U/L) Date Value 03/15/2016 21 Hemoglobin (g/dL) Date Value 03/15/2016 16.7 Hematocrit (%) Date Value 03/15/2016 49.2 WBC (k/uL) Date Value 03/15/2016 6.14 Cholesterol, Total (mg/dL) Date Value 03/15/2017 254 HDL Cholesterol (mg/dL) Date Value 03/15/2017 43 LDL Cholesterol (mg/dL) Date Value 03/15/2017 Unable to calculate due to increased Triglycerides. See LDL-Chol, Direct. Triglyceride (mg/dL) Date Value 03/15/2017 501 Hemoglobin A1C Date Value Ref Range Status 03/15/2017 8.2 (H) 4.3 - 5.6 % Final 12/04/2016 7.8 (H) 4.3 - 5.6 % Final Comment: [place] [employer] guidelines indicate that patients with HgbA1c in the range 5.7-6.4% are at increased risk for development of diabetes, and intervention by lifestyle modification may be beneficial. HgbA1c greater or equal to 6.5% is considered diagnostic of diabetes. 06/07/2016 7.0 (H) 4.3 - 5.6 % Final Comment: [place] [employer] guidelines indicate that patients with HgbA1c in the range 5.7-6.4% are at increased risk for development of diabetes, and intervention by lifestyle modification may be beneficial. HgbA1c greater or equal to 6.5% is considered diagnostic of diabetes. 03/15/2016 7.1 (H) 4.3 - 5.6 % Final Comment: [place] [employer] guidelines indicate that patients with HgbA1c in the range 5.7-6.4% are at increased risk for development of diabetes, and intervention by lifestyle modification may be beneficial. HgbA1c greater or equal to 6.5% is considered diagnostic of diabetes. 01/05/2016 7.0 (H) 4.3 - 5.6 % Final Comment: [place] [employer] guidelines indicate that patients with HgbA1c in the range 5.7-6.4% are at increased risk for development of diabetes, and intervention by lifestyle modification may be beneficial. HgbA1c greater or equal to 6.5% is considered diagnostic of diabetes. Ejection Fraction: No results found IMPRESSION: Ms. Martin is a 76 year old woman presents for ER follow up. After my examination and review of data, I make the following recommendations. PLAN AND RECOMMENDATIONS: 1. Knee effusion, right - ICD9: 719.06, ICD10: M25.461 (primary diagnosis) - CONSULT TO ORTHOPAEDICS 2. Acute pain of right knee - ICD9: 719.46, ICD10: M25.561 3. Primary osteoarthritis involving multiple joints - ICD9: 715.09, ICD10: M15.0 Increased dose to 3 times daily following sprain, refilled at increased frequency x 1 month - OXYCODONE-ACETAMINOPHEN 7.5 MG-325 MG TABLET 4. Sprain of right knee, unspecified ligament, subsequent encounter - ICD9: V58.89, 844.9, ICD10: S83.91XD Needs as soon as possible appointment with Dr. Walker. Continue to ice and elevate her leg. Use Chas wrap as ordered. Offloading as able with walker. Advised to go to ER if develops chest pain, shortness of breath, or severe worsening of symptoms. Discussed risks, benefits, alternatives, and potential side effects of medications. Ms. Martin expressed understanding and agreed with the plan. CHUNG Anand VENOUS DUPLEX LOWER Observed: 04/08/2017 Status: F Source: [place] EXTREMITY 8:58 PM [facility] REPOSITORY [facility] Cardiovascular Services [address] [place] [address] Venous Duplex US, Unilateral 04/08/17 1124 MR#: [id number] Acct: [id number] Name: KATHERIN MARTIN Rep #: [id number] : 1940 76 From: Rod Hidalgo MD Attending Dr: Geri Alvarez MD Status: REG CLI Ordering Dr: Geri Alvarez MD Date: 04/08/17 Location: [facility] Sex: F C Admitted: Reason For Study: RT KNEE STRAIN RIGHT GSV is normal. CFV is compressible, spontaneous, phasic, competent and demonstrates normal augmentation. FV is compressible, spontaneous, phasic, competent and demonstrates normal augmentation. POP V is compressible, spontaneous, phasic, competent and demonstrates normal augmentation. T/P Trunk is compressible. PTV is compressible. RT PerV is compressible. Procedure Exam performed in department. A preliminary report was called and/or faxed to ED. Interpretation Summary Deep veins of the right lower extremity are patent and compressible segmentally. There is no evidence of right lower extremity deep vein thrombosis. Valvular competence appears intact within the proximal deep venous system on the right . The right greater saphenous vein appears patent and compressible segmentally. Ordering Physician: Geri Alvarez Referring Physician: MOO REAVES Performed By: Aleyda Chavis, RDCS, RVT 04/08/172057 Date Rod Hidalgo MD CC: Geri Alvarez MD; Moo Reaves MD Date Dictated: 04/08/17 1124 Date Transcribed: 04/08/172057 Automation Controls Specialist: Signed EMERGENCY DEPARTMENT Observed: 04/07/2017 Status: F Source: [place] SUMMARY 11:31 PM [facility] REPOSITORY [facility] Medical Records Department [address] [place] [address] Emergency Department Summary 04/07/17 1656 MR#: [id number] Acct: [id number] Name: KATHERIN MARTIN Rep #: [id number] : 1940 76 From: Geri Alvarez MD PCP: Moo Reaves MD Status: DEP ER - ER Visit Summary Date of Service: 04/07/17 Chief Complaint: Right Knee pain History of Present Illness: The patient is a 76 F who slipped getting out of her car 6 days ago. Patient states when she put her right foot on the ground it slipped on ice and she felt a snap in her right knee. She did not fall to the ground. She had x-rays on the that showed a small joint effusion and arthrosis. She now complains of getting some cramping in her leg even when sitting at rest. She is only on oxycodone at home for pain. She wanted others anything that can be done further for her leg. Physical Examination: Vital signs are unremarkable. Head and neck examination is normal. Heart is regular rate and rhythm. Lung sounds are clear. Right lower extremity examination was mild tenderness over the anterior right knee with small joint effusion. There is no focal calf or thigh tenderness. No palpable cords. She has strong distal pulses. She has slow, purposeful range of motion. Test Results: I did review right knee x-rays from 2 days ago. Emergency Department Course and Treatment: At this time patient was advised that she could increase the frequency of her oxycodone every 6 hours. She is limiting it twice a day on average. Chas wrap will be applied to the knee. She is also asking about a steroid shot which is helped in the past. She be given a dose of Kenalog. She is diabetic and she was warned that this would make her blood sugars increase. She presents on a Saturday afternoon I do not have ultrasound available here to rule out a DVT. Because she had an injury to her leg and concerned about some bleeding in the deep muscles and my clinical suspicion for DVT is low. I will not treat her with an anticoagulant at this time. This is been discussed with her. Patient states she has to attend a tomorrow but will be able to come in Saturday for an ultrasound of her leg. She is written an outpatient order for this test. Treatment Plan: [] Disposition: Discharge Impression: Right knee contusion This note was generated with [employer] dictation software. It may contain incorrect words, spelling, and punctuation that were not noted in review of the chart prior to signing ED Disposition - Plan for ED Patient: Chief Complaint: Fall Referrals: Moo Reaves MD [Primary Care Provider] - What to do if you have Problems For any increased pain, shortness of breath, bleeding, nausea or vomiting, chest pain, or any unexpected problems, contact your Primary Care Provider. Call [facility] ([phone]) or report to the closest Emergency Room. Call 911 if necessary. 04/07/17 2331 <Electronically signed by Geri Alvarez MD> Date Geri Alvarez MD Cosigner Signature (If Indicated): Date CC: Moo Reaves MD DISCHARGE INSTRUCTION Observed: 04/07/2017 Status: F Source: [place] 5:00 PM [facility] RE[facility] Medical Records Department [address] [place] [address] Discharge Instruction 04/07/17 1659 MR#: [id number] Acct: [id number] Name: KATHERIN MARTIN Rep #: [id number] : 1940 76 From: Geri Alvarez MD PCP: Moo Reaves MD Status: PRE ER ED Disposition - Plan for ED Patient: Disposition: Home or Assisted Living Chief Complaint: Fall Instructions: ED Sprain Knee Referrals: Moo Reaves MD [Primary Care Provider] - Mendy Walker DO [STAFF PHYSICIAN] - 3-5 Days if not improving What to do if you have Problems For any increased pain, shortness of breath, bleeding, nausea or vomiting, chest pain, or any unexpected problems, contact your Primary Care Provider. Call [facility] ([phone]) or report to the closest Emergency Room. Call 911 if necessary. 04/07/17 1700 <Electronically signed by Geri Alvarez MD> Date Geri Alvarez MD Cosigner Signature (If Indicated): Date CC: Moo Reaves MD EMERGENCY DEPARTMENT Observed: 04/05/2017 Status: F Source: [place] SUMMARY 9:51 PM [facility] RE[facility] Medical Records Department [address] [place] [address] Emergency Department Summary 04/05/17 2148 MR#: [id number] Acct: [id number] Name: KATHERIN MARTIN Rep #: [id number] : 1940 76 From: Donald Andersen MD PCP: Moo Reaves MD Status: REG ER - ER Visit Summary Date of Service: 04/05/17 Chief Complaint: Knee pain History of Present Illness: The patient is a 76 F who presents with right knee pain. It began 5 days ago. She states she was getting out of the car when she slipped on ice and twisted her right knee. She did not fall to the ground. She states she felt and heard a snap. She has been able to bear weight. She denies any recent illness. Physical Examination: Afebrile vitals are stable Moist mucous membranes Heart regular rate and rhythm Lungs are clear Abdomen soft Patient does have a right knee effusion but active full range of motion extensor mechanism intact no bony deformity no erythema not hot to the touch 2+ dorsalis pedis pulse Test Results: Knee x-ray shows an effusion and degenerative arthrosis no fracture. Emergency Department Course and Treatment: She was given an Chas wrap and instructed on supportive care. She has oxycodone at home. She was advised to follow-up with her primary care physician. She was discharged. Treatment Plan: [] Disposition: Discharge Impression: Acute right knee sprain This note was generated with [employer] dictation software. It may contain incorrect words, spelling, and punctuation that were not noted in review of the chart prior to signing ED Disposition - Plan for ED Patient: Chief Complaint: Lower Extremity Injury Referrals: Moo Reaves MD [Primary Care Provider] - What to do if you have Problems For any increased pain, shortness of breath, bleeding, nausea or vomiting, chest pain, or any unexpected problems, contact your Primary Care Provider. Call [facility] ([phone]) or report to the closest Emergency Room. Call 911 if necessary. 04/05/172150 <Electronically signed by Donald Andersen MD> Date Donald Andersen MD Cosigner Signature (If Indicated): Date CC: Moo Reaves MD DISCHARGE INSTRUCTION Observed: 04/05/2017 Status: F Source: [place] 9:51 PM [facility] Medical Records Department [address] [place] [address] Discharge Instruction 04/05/172150 MR#: [id number] Acct: [id number] Name: KATHERIN MARTIN Rep #: [id number] : 1940 76 From: Donald Andersen MD PCP: Moo Reaves MD Status: REG ER ED Disposition - Plan for ED Patient: Chief Complaint: Lower Extremity Injury Instructions: ED Effusion Knee Referrals: Moo Reaves MD [Primary Care Provider] - What to do if you have Problems For any increased pain, shortness of breath, bleeding, nausea or vomiting, chest pain, or any unexpected problems, contact your Primary Care Provider. Call [facility] ([phone]) or report to the closest Emergency Room. Call 911 if necessary. 04/05/172150 <Electronically signed by Donald Andersen MD> Date Donald Andersen MD Cosigner Signature (If Indicated): Date CC: Moo Reaves MD KNEE 4 OR MORE Observed: 04/05/2017 Status: F Source: [place] VIEWS 8:00 PM [facility] RE[facility] Imaging Services [address] [place] [address] Knee 4 or More Views MR#: [id number] Acct: [id number] Name: KATHERIN MARTIN Rep #: [id number] : 1940 F 76 From: Hayder Castellanos MD PCP: Moo Reaves MD Status: PRE ER Study: Knee 4 or More Views Date of Exam: 04/05/17 Exam# [id number] Ordering Dr: Provider, Ed P. STUDY: X-RAY - RIGHT KNEE REASON FOR EXAM: Female, 76 years old. Twisted right knee. Pain. TECHNIQUE: 4 view(s) of the knee. COMPARISON: None. FINDINGS: There is generalized osteopenia. There is mild medial compartmental arthrosis. There is mild arthrosis of the patellofemoral compartment. There is a joint effusion. RAD/Knee 4 or More Views IMPRESSION: Joint effusion with medial and patellofemoral compartment arthrosis. No acute abnormality. Electronically Signed: Hayder Castellanos MD at 21:11 EST , Service support , CC: ED PHYSICIAN PROVIDER; Moo Reaves MD Automation Controls Specialist: Signed HEMOGLOBIN A1C Collected: 03/15/2017 Status: F Source: [facility] 2:39 PM [facility] REPOS[facility] TYPE CODE TESTS RESULT OUT OF REFERENCE UNITS RANGE LAB HGBA1C 4.3-5.6 % High Hemoglobin A1c 8.2 LAB HBA0 mg/dL Est. Average Glucose 189 Result Comment: eAG: (Estimated average glucose) is a calculated value from HgbA1c and is food service representative of the average blood glucose level in the last 2-3 month period. Performed By: #### HBA1C, TSH, FT4, FERR, LIPB, LDLDCT, B12 #### [facility] [address] [address] TSH Collected: 03/15/2017 Status: F Source: [place] 2:39 PM [facility] REPOSITORY TYPE CODE TESTS RESULT OUT OF RANGE REFERENCE UNITS LAB TSH 0.400-5.500 uU/mL TSH 3.530 Performed By: #### HBA1C, TSH, FT4, FERR, LIPB, LDLDCT, B12 #### [place] [address] FREE T4 Collected: 03/15/2017 Status: F Source: [place] 2:39 PM [facility] REPOSITORY TYPE CODE TESTS RESULT OUT OF RANGE REFERENCE UNITS LAB FT4 0.9-1.7 ng/dL Free T4 1.1 Performed By: #### HBA1C, TSH, FT4, FERR, LIPB, LDLDCT, B12 #### [place] [address] FERRITIN Collected: 03/15/2017 Status: F Source: [place] 2:39 PM [facility] REPOSITORY TYPE CODE TESTS RESULT OUT OF REFERENCE UNITS RANGE LAB FERR 14.7-205.1 ng/mL High Ferritin 313.2 Performed By: #### HBA1C, TSH, FT4, FERR, LIPB, LDLDCT, B12 #### [place] [address] LIPID PANEL, BASIC Collected: 03/15/2017 Status: F Source: [place] 2:39 PM [facility] REPOSITORY TYPE CODE TESTS RESULT OUT OF REFERENCE UNITS RANGE LAB CHOL <200 mg/dL Cholesterol High 254 Result Comment: <200 mg/dL, Desirable 200-239 mg/dL, Borderline high >239 mg/dL, High LAB TRIGLY <150 mg/dL Triglyceride High 501 Result Comment: <150 mg/dL, Normal 150-199 mg/dL, Borderline high 200-499 mg/dL, High >499 mg/dL, Very high LAB HDL >39 mg/dL HDL-Cholesterol 43 Result Comment: 40-59 mg/dL, Acceptable >59 mg/dL, High: Negative risk factor for coronary heart disease <40 mg/dL, Low: Positive risk factor for coronary heart disease LAB LDL <100 mg/dL LDL-Cholesterol Unable to calculate due to increased Triglycerides. See LDL-Chol, Direct. LAB NONHDL <130 mg/dL Non HDL Cholesterol 211 High Result Comment: <130 mg/dL, Optimal 130-159 mg/dL, Near optimal/above optimal 160-189 mg/dL, Borderline high 190-219 mg/dL, High >219 mg/dL, Very high Secondary prevention optimal non HDL Cholesterol levels are recommended to be < 100 mg/dL LAB FT hrs Fasting Time 4 LAB VLDL <30 mg/dL VLDL Unable Cholesterol to calculate due to increased Triglycerides. See LDL-Chol, Direct. LAB TCHDL <5.10 TC:HDL Ratio 5.91 High LAB LDLHDL <2.54 LDL:HDL Ratio Unable to calculate due to elevated Triglycerides. Result Comment: Reference: 1. National Cholesterol Education Program ATP III Guideline At-A-Glance Quick Desk Reference: National Heart, Lung, and Blood [place]. National Institutes of Health. 2001: NIH Publication No. 01-3305. 2. An International Atherosclerosis Society position paper: global recommendations for the management of dyslipidemia: executive summary, Atherosclerosis. 2014: 232(2):410-413. Performed By: #### HBA1C, TSH, FT4, FERR, LIPB, LDLDCT, B12 #### [facility] [address] [address] LDL-CHOL, DIRECT Collected: 03/15/2017 Status: F Source: LAJAS 2:39 PM [facility] [place] REPOSITORY TYPE CODE TESTS RESULT OUT OF REFERENCE UNITS RANGE LAB LDLDIR <100 mg/dL High LDL-Chol, 145 Direct Result Comment: <100 mg/dL, Optimal 100-129 mg/dL, Near optimal/above optimal 130-159 mg/dL, Borderline high 160-189 mg/dL, High >189 mg/dL, Very high Secondary prevention optimal LDL Cholesterol levels are recommended to be < 70 mg/dL LAB VLDL1 <30 mg/dL VLDL Cholesterol High 66 Performed By: #### HBA1C, TSH, FT4, FERR, LIPB, LDLDCT, B12 #### [facility] [address] [place], [place] [address] VITAMIN B12 Collected: 03/15/2017 Status: F Source: LAJAS 2:39 PM [facility] REPOSITORY TYPE CODE TESTS RESULT OUT OF REFERENCE UNITS RANGE LAB B12 232-1245 pg/mL Vitamin B12 558 Performed By: #### HBA1C, TSH, FT4, FERR, LIPB, LDLDCT, B12 #### [facility] [address] [place], [place] [address] PROGRESS Observed: 03/15/2017 Status: COMPLETED Source: LAJAS 12:20 PM [facility] REPOSITORY HNO ID: [id number] Author: Moo Reaves Service: (none) Author Type: Physician Type: Progress Notes Filed: 03/31/2017 11:17 PM Note Text: Patient presents with: Recheck SUBJECTIVE: Katherin Martin is a 76 year old year old lady here today for 6 month follow up appointment for review of medical conditions. Still down Hair thinning, falling out Bladder issues Lower back pain--med helps Ongoing daily cough all day long. Tessalon perles tried--cough persists. Cough started before moved to her house. Other chronic medical issues stable. PAST MEDICAL HISTORY Diagnosis Date - CARDIAC DYSRHYTHMIAS NEC 12/11/2004 - Diverticulitis 12/18/13 - DIVERTICULITIS OF COLON W/O BLEED 12/11/2004 - Hyperparathyroidism , secondary, non-renal (HCC) 06/20/2016 - ISOLATED OR SPECIFIC PHOBIAS NEC 12/11/2004 - LLQ pain 12/18/13 - OBESITY NOS 12/11/2004 - OSTEOARTHROS NOS-OTHER SITE 12/11/2004 L knee arthritis - PEPTIC ULCER NOS 12/11/2004 Current Outpatient Prescriptions: cyanocobalamin 1,000 mcg/mL soln INJECT 1 ML INTRAMUSCULARLY ONCE EVERY MONTH. 1 DOSE MONTHLY ALPRAZolam (XANAX) 0.5 mg tablet TAKE 1 TABLET TWICE DAILY Zolpidem (AMBIEN CR) 12.5 mg CR tablet TAKE 1 TABLET BY MOUTH AT BEDTIME benzonatate (TESSALON PERLE) 100 mg capsule Take 1 capsule by mouth three times daily as needed. INVOKANA 300 mg tablet TAKE 1 TABLET BY MOUTH DAILY BEFORE BREAKFAST. Lancets lancets Test blood sugar(s) once or twice daily. Dx: E11.9. Med: Invokana. One touch meter. pravastatin (PRAVACHOL) 20 mg tablet Take 1 tablet by mouth daily at bedtime. irbesartan (AVAPRO) 300 mg tablet Take 1 tablet by mouth once daily. cholecalciferol, Vitamin D3, (VITAMIN D3) 50,000 unit cap capsule Take 1 capsule by mouth once each week. bumetanide (BUMEX) 0.5 mg tablet Take 1 tablet by mouth once daily. As directed (may decrease to every other day if no swelling recurs) nystatin (MYCOSTATIN) powder Apply 1 application to affected area three times daily. As directed for treatment of yeast infection codeine-guaiFENesin (GUAIFENESIN AC) 10-100 mg/5 mL syrup Take 5 mL by mouth once daily as needed. blood sugar diagnostic (BLOOD GLUCOSE TEST) test strip Test blood sugar(s) once or twice daily. Dx: E11.9. Med: Invokana. One touch meter. diltiazem XR (DILTIA XT) 240 mg 24 hr capsule Take 1 capsule by mouth once daily. DULoxetine (CYMBALTA) 30 mg capsule Take 1 capsule by mouth once daily. esterified estrogens-methylTESTOSTERone (ESTRATEST HS) 0.625- 1.25 mg per tablet Take 1 tablet by mouth once daily. aluminum hydrox-magnesium carb (GAVISCON) 95-358 mg/15 mL suspension Take 15 mL by mouth every 6 hours as needed. econazole (SPECTAZOLE) 1 % cream Apply 1 application to affected area once daily. icosapent ethyl (VASCEPA) 1 gram cap Take by mouth. No current facility-administered medications for this visit. OBJECTIVE: BP 112/72 Pulse 78 Resp 18 Wt 102.5 kg (226 lb) BMI 40.03 kg/m2 Patient is alert, oriented times 3, no apparent distress, affect is bright, reactive. Heart: Regular rate, rhythm, no murmurs, gallops, rubs. Lungs: Clear to auscultation, bilaterally, breathing non labored. Ext: No cyanosis, clubbing, or edema. Component Latest Ref Rng AND Units 06/07/2016 12/04/2016 Glucose 74 - 99 mg/dL 173 (H) 174 (H) BUN 7 - 21 mg/dL 19 23 (H) Creatinine 0.58 - 0.96 mg/dL 0.66 0.63 Sodium 136 - 144 mmol/L 139 137 Potassium 3.7 - 5.1 mmol/L 4.4 4.0 Chloride 97 - 105 mmol/L 99 99 CO2 22 - 30 mmol/L 21 (L) 20 (L) Anion Gap 9 - 18 mmol/L 19 (H) 18 Calcium 8.5 - 10.2 mg/dL 10.3 (H) 10.7 (H) eGFR- >60 >60 eGFR-All Other Races . >60 >60 Hemoglobin A1C 4.3 - 5.6 % 7.0 (H) 7.8 (H) Estimated Average Glucose mg/dL 154 177 Vitamin D 25 Hydroxy 31.0 - 80.0 ng/mL 23.1 (L) 23.5 (L) PTH, Intact 15 - 65 pg/mL 87 (H) 70 (H) ASSESSMENT AND PLAN: Encounter Diagnosis ICD-10-CM 1. Psychophysiological insomnia F51.04 Zolpidem (AMBIEN CR) 12.5 mg CR tablet 2. Primary osteoarthritis involving multiple joints M15.0 oxyCODONE-acetaminophen (PERCOCET) 7.5-325 mg tablet oxyCODONE-acetaminophen (PERCOCET) 7.5-325 mg tablet oxyCODONE-acetaminophen (PERCOCET) 7.5-325 mg tablet 3. Cough R05 codeine-guaiFENesin (GUAIFENESIN AC) 10-100 mg/5 mL syrup Morning cough; cough med 1 tsp every 3 to 4 days helps 4. B12 deficiency E53.8 VITAMIN B12 BLOOD 5. Fatigue, unspecified type R53.83 TSH BLD T4 FREE/FREE THYROX 6. Type 2 diabetes mellitus without complication, without long-term current use of insulin (HCC) E11.9 ALBUMIN/CREAT RATIO RND UR LIPID PANEL BASIC HGB A1C 7. Vitamin D deficiency E55.9 cholecalciferol, Vitamin D3, (VITAMIN D3) 50,000 unit cap capsule 8. Essential hypertension I10 9. Hyperparathyroidism, primary (HCC) E21.0 10. Hyperparathyroidism , secondary, non-renal (HCC) E21.1 11. Urinary urgency R39.15 CONSULT TO MARKETING INFORMATION ANALYST 12. History of bladder suspension procedure Z92.89 CONSULT TO MARKETING INFORMATION ANALYST 13. Stress incontinence N39.3 CONSULT TO MARKETING INFORMATION ANALYST 14. Restless leg G25.81 FERRITIN BLD 15. Idiopathic chronic pancreatitis (HCC) K86.1 Above issues addressed at length with patient. Patient involved in shared decision making for management of her medical issues. History and medications reviewed. Epic updated as needed Issues with hyperparathyroidism discussed. Seems symptomatic though issues with depression might be worse with elevated calcium and hyperparathyroidism. Referral as indicated. Discussed DM not as well controlled as last time. Keep working on diet and exercise. Continue present meds. Discussed causes of chronic cough. Further evaluation and treatment as indicated. MOLDING MACHINE TENDER referral discussed. Refills taken care of and meds adjusted as indicated after reviewed history, exam and labs. Health Maintenance reviewed. Updated record and/or ordered tests as recorded. Encouraged on efforts at healthy diet and regular exercise and adequate sleep. The majority of the visit was spent counseling and/or coordinating care for the patient. Ilnd-ol-rcin time was at least 25 minutes. Moo Reaves MD ALLERGIES ALLERGIES DATE TYPE / NAME / CODE REACTION SEVERITY SOURCE CODE 02/28/2018 Drug bupropion Other Unknown [place] Allergy/41 HCl/[id number](RXNORM [facility] [id number] [place] [address]) Repository 02/28/2018 Drug ketorolac Itching Unknown [place] Allergy/41 tromethamine/[id number] [facility] [id number] [place], [place] [address] Repository 02/28/2018 Drug dexfenfluramine Unknown Unknown [place] Allergy/41 HCl/[id number](RXNORM [facility] [id number] [place] [address]) Repository 02/28/2018 Drug hydrochlorothiazide/F Other Unknown [place] Allergy/41 [id number](RXNORM) [facility] 0718117([facility]) Repository 02/28/2018 Drug oxaprozin/[id number]( Other Unknown [place] Allergy/41 RXNORM) [facility] 3709338([facility]) Repository 02/28/2018 Drug bupropion/[id number]( Other Unknown [place] Allergy/41 RXNORM) [facility] 7797486([facility]) Repository 02/28/2018 Drug duloxetine/[id number] Other Unknown [place] Allergy/41 (RXNORM) [facility] 6284142([facility]) Repository 02/28/2018 Drug ramelteon/[id number]( Other Unknown Jamie Allergy/41 RXNORM) Community 6322753([facility]) Repository 06/28/2017 DRUG DULOXETINE [facility] [place] INGREDI/41 Clinic Main 6205481([facility] OME [facility]) Repository 11/05/2016 DRUG/[address] [facility] 1003([facility] D [facility]) [place] Repository 06/20/2016 DRUG RAMELTEON INTOLERANCE [place] INGREDI/41 Clinic Main [id number]([facility] OME [facility]) Repository 11/16/2004 DRUG KETOROLAC [facility]WELL[facility] Clinic Main [id number]([facility]) Repository ENCOUNTERS ENCOUNTERS ADMIT/DISCHARGE ACCOUNT ADMITTING ENCOUNTER LOCATION SOURCE NUMBER CLASS 03/13/2018/03/13/19 [id number] Ambulatory [address] Main [place] Repository 03/03/2018 [id number] [facility]le [facility] Jamie [facility] ing:LAB Repository 02/28/2018/02/28/19 [id number] Ambulatory BMSBuilding:Keyur Ayala 19 [place].[facility] Repository 02/27/2018 [id number] Ambulatory BMSBuilding:Keyur Ayala [facility] Repository 01/14/2018 [id number] Ambulatory [facility] [place] Repository 01/01/2018/01/02/20 [id number] Ambulatory [address] Repository 11/28/2017/12/17/19 [id number] Ambulatory [address] Repository 11/28/2017/11/29/19 [id number] Ambulatory [address] Main [place] Repository 11/15/2017 [id number] [facility] ing:MRI Repository 11/14/2017/11/15/19 [id number] Ambulatory [address] Main [place] Repository 11/14/2017/11/15/19 [id number] Ambulatory [address] Main [place] Repository 11/14/2017/12/03/19 [id number] Ambulatory [address] Main [place] Repository 11/04/2017/11/05/19 [id number] Ambulatory BMSBuilding:Keyur Ayala 18 MS.[facility] Hospital Repository 11/04/2017 [id number] Ambulatory [facility] HospitalBuild Hospital ing:RAD Repository 09/26/2017 [id number] Ambulatory [facility] HospitalBuild Hospital ing:[place] Repository 09/26/2017/09/27/19 [id number] Ambulatory BMSBuilding:B [place] 18 [facility] Hospital Repository 09/17/2017/10/10/19 [id number] Ambulatory [address] Repository 09/02/2017/09/03/19 [id number] Ambulatory BMSBuilding:B [place] 18 MS.[facility] Hospital Repository 09/02/2017 [id number] Ambulatory BMSBuilding:W [facility] Hospital Repository 08/29/2017/08/30/19 [id number] Ambulatory BMSBuilding:B [place] 18 [facility] Hospital Repository 08/29/2017 [id number] Ambulatory [facility] HospitalBuild Hospital ing:PSN Repository 08/27/2017/08/28/19 [id number] Ambulatory BMSBuilding:B [place] 18 [facility] Hospital Repository 08/20/2017/08/21/19 [id number] Ambulatory BMSBuilding:B [place] 18 [facility] Hospital Repository 08/19/2017 [id number] Ambulatory BMSBuilding:B [place] [facility] Hospital Repository 08/19/2017 [id number] Ambulatory [facility] HospitalBuild Hospital ing:CVS Repository 08/19/2017 [id number] Ambulatory BMSBuilding:W [facility] Hospital Repository 08/15/2017/08/16/19 [id number] Ambulatory [address] HospitalBuild Hospital ing:PT Repository 08/15/2017/08/16/19 [id number] Ambulatory BMSBuilding:B [place] 18 [facility] Hospital Repository 08/15/2017/08/16/19 [id number] Ambulatory [address] Repository 08/15/2017/08/30/19 [id number] Ambulatory [address] Repository 08/13/2017 [id number] Ambulatory [facility] HospitalBuild Hospital ing:HPRAD Repository 08/13/2017/08/14/19 [id number] Ambulatory BMSBuilding:B [place] 18 [place].[facility] Repository 08/13/2017/08/14/19 [id number] Ambulatory BMSBuilding:B [place] 18 MS.[facility] Repository 08/13/2017 [id number] [facility]ulatory [facility] Hospital ing:CVS Repository 08/07/2017/08/08/19 [id number] Ambulatory BMSBuilding:B [place] 18 MS.[facility] Repository 08/06/2017 [id number] Ambulatory BMSBuilding:B [place] Repository 07/31/2017/08/01/19 [id number] Emergency [address] ing:ED Repository 07/04/2017 [id number] Ambulatory BMSBuilding:B [place] MS.[facility] Repository 07/02/2017/07/03/19 [id number] Ambulatory BMSBuilding:B [place] 18 MS.[facility] Repository 06/28/2017/07/13/19 [id number] Ambulatory [address] Repository 06/19/2017/06/23/19 [id number] Nathaniel Cuellar Inpatient [place] Jamie 18 Encounter [facility] ing:SX4Jfld: Repository FO593Dki: 1 06/19/2017 [id number] Nathaniel Cuellar Ambulatory BMSBuilding:B Jamie MS.[facility] Repository 06/19/2017 [id number] Nathaniel Cuellar Ambulatory BMSBuilding:B [place] [facility] Repository 06/19/2017 [id number] Nathaniel Cuellar Ambulatory BMSBuilding:B [place] [facility] Repository 06/19/2017 [id number] Ambulatory BMSBuilding:B [place] Repository 06/04/2017/06/20/19 [id number] Saravanan Weldon Chi Inpatient [place] Jamie 18 Encounter [facility] ing:TCURoom: Repository DWM51Klh: 1 05/30/2017/06/05/19 [id number] [facility], Ambulatory [place] [facility] ing:VX0Xpjk: Repository NX271Pzp: 1 05/30/2017 [id number] [facility], Ambulatory BMSBuilding:Keyur Horne [facility] Repository 05/30/[id number] [facility], Ambulatory BMSBuilding:Keyur Horne [facility] Repository 05/30/[id number] [facility], Ambulatory BMSBuilding:Keyur Horne MS.[facility] Repository 05/30/[id number] [facility], Ambulatory BMSBuilding:Keyur Horne [facility] Repository 05/30/[id number] [facility], Ambulatory BMSBuilding:Keyur Horne MS.[facility] Repository 05/30/[id number] [facility], Ambulatory BMSBuilding:Keyur Horne MS.[facility] Repository 05/29/2017/06/20/19 [id number] Ambulatory [address] Repository 05/28/2017 [id number] [facility]ulatory [facility] Hospital ing:HPRAD Repository 05/28/2017/05/29/19 [id number] Ambulatory BMSBuilding:B [place] 18 [facility] Repository 05/23/2017 [id number] [facility]ulatory [facility] Hospital ing:CVS Repository 05/23/2017/05/24/19 [id number] Ambulatory BMSBuilding:B [place] 18 [facility] Repository 05/15/2017/05/16/19 [id number] Ambulatory [address] Hospital ing:SDCRoom: Repository AC04 05/15/2017 [id number] Ambulatory BMSBuilding:B Jamie DUNNE.CF.[facility] Repository 05/08/2017/05/09/19 [id number] Ambulatory [address] Repository 05/07/2017/05/08/19 [id number] Ambulatory BMSBuilding:B [place] 18 [facility] Repository 05/02/2017 [id number] [facility]ulatory [facility] Hospital ing:MRI Repository 04/23/2017 [id number] Ambulatory [facility] ing:LABSPEC Repository 04/23/2017/04/24/19 [id number] Ambulatory BMSBuilding:B [place] 18 [facility] Repository 04/11/2017/04/12/19 [id number] Ambulatory [address] Repository 04/08/2017 [id number] Ambulatory [facility] ing:CVS Repository 04/07/2017/04/07/19 [id number] Emergency [place] ing:ED Repository 04/05/2017/04/05/19 [id number] Emergency [place] ing:ED Repository 03/15/2017/03/15/19 [id number] Ambulatory [address] Repository PAYERS PAYERS ENCOUNTER GUARANTOR PAYER SUBSCRIBER SOURCE 03/03/2018 KATHERIN Cutler Primary Insurance:KIRSTIEJUAN CARLOS Cutler [place] [id number] MCRPolicy Number: CARVERDOB: [facility] T[place]K BKHZQSEffective [id number] Date:8190-23-10IP BOX Repository 28218Tvk: [phone] JESSICA BRUNO [phone]: 03/03/2018 Secondary NOT GIVENUNK [place] Insurance:SELF PAY Community INSURANCEPolicy Number: Hospital Effective Repository Date:2018-01-23 02/28/2018 KATHERIN Cutler Primary Insurance:HERIBERTO Cutler [place] [id number] MCRPolicy Number: CARVERDOB: [facility] BKHZQSEffective [id number] Date:7783-51-55NT BOX Repository [address]Jqt: [phone] JESSICA BRUNO [phone] ( [phone]: 02/28/2018 Secondary NOT GIVENUNK [place] Insurance:SELF PAY Community INSURANCEPolicy Number: Hospital Effective Repository Date:2018-02-28 02/27/2018 KATHERIN Cutler Primary Insurance:AETJUAN CARLOS Cutler Jamie [id number] MCRPolicy Number: CARVERDOB: Community DIPTI BILLYZQSEffective [id number] Date:3220-15-86LI BOX Repository [address]Haa: [phone] [place]AREYLasha[place] [phone] (HP) [phone]: 02/27/2018 Secondary NOT GIVENUNK [place] Insurance:SELF PAY Community INSURANCEPolicy Number: Hospital Effective Repository Date:2018-02-27 11/15/2017 KATHERIN S Primary Insurance:HERIBERTO Cutler [place] [id number] MCRPolicy Number: CARVERDOB: Community DIPTI HENRYQSEffective [id number] Memorial Hospital, [place] Date:9465-76-74EX BOX Repository [address]Eip: [phone] [place] [phone] (HP) [phone]: 11/15/2017 Secondary NOT GIVENUNK Jamie Insurance:SELF PAY Community INSURANCEPolicy Number: Hospital Effective Repository Date:2017-11-12 11/04/2017 KATHERIN S Primary Insurance:HERIBERTO Cutler [place] [id number] MCRPolicy Number: CARVERDOB: Community [place] BJAMESZQSEffective [id number] Memorial Hospital, [place] Date:7023-23-17UQ BOX Repository [address]Gnn: [phone] [place] [phone] (HP) [phone]: 11/04/2017 Secondary NOT GIVENUNK [place] Insurance:SELF PAY Community INSURANCEPolicy Number: Hospital Effective Repository Date:2017-10-18 11/04/2017 KATHERIN S Primary Insurance:HERIBERTO Cutler [place] [id number] MCRPolicy Number: CARVERDOB: Community TUNUNAK WENCESLAOZQSEffective [id number] Memorial Hospital[place] Date:8435-59-81TK BOX Repository [address]Amf: [phone] [place] [phone] (HP) [phone]: 11/04/2017 Secondary NOT GIVENUNK Jamie Insurance:SELF PAY Community INSURANCEPolicy Number: Hospital Effective Repository Date:2017-11-04 09/26/2017 KATHERIN Cutler Primary Insurance:AETJUAN CARLOS Cutler Jamie [id number] MCRPolicy Number: CARVERDOB: Community [place] P[place] MEBKHZQSEffective [id number] [facility], [place] Date:4912-56-92WM BOX Repository [address]Lhd: [phone] [place], [place] [phone] (HP) [phone]: 09/26/2017 Secondary NOT GIVENUNK Jamie Insurance:SELF PAY Community INSURANCEPolicy Number: Hospital Effective Repository Date:2017-09-26 09/26/2017 KATHERIN S Primary Insurance:AETNA KATHERIN Cutler [place] [id number] MCRPolicy Number: CARVERDOB: Community [place] P[place] MEBKHZQSEffective [id number] Park Medical Center, [place] Date:7324-08-33KC BOX Repository [address]Mza: [phone] [facility] [place], [place] [phone] (HP) [phone]: 09/26/2017 Secondary NOT GIVENUNK Jamie Insurance:SELF PAY Community INSURANCEPolicy Number: Hospital Effective Repository Date:2017-09-26 09/02/2017 KATHERIN Cutler Primary Insurance:AETJUANC ARLOS Cutler Jamie [id number] MCRPolicy Number: CARVERDOB: Community [place] MEBKHZQSEffective [id number] Park Medical Center, [place] Date:3949-30-60WT BOX Repository [address]Uwh: [phone] [place], [place] [phone] (HP) [phone]: 09/02/2017 Secondary NOT GIVENUNK [place] Insurance:SELF PAY Community INSURANCEPolicy Number: Hospital Effective Repository Date:2017-07-31 09/02/2017 KATHERIN S Primary Insurance:AETJUAN CARLOS Cutler Jamie [id number] MCRPolicy Number: CARVERDOB: Community [place] MEBKHZQSEffective [id number] Park [facility], [place] Date:2322-40-57UH BOX Repository [address]Hsw: [phone] [place], [place] [phone] (HP) [phone]: 09/02/2017 Secondary NOT GIVENUNK [place] Insurance:SELF PAY Community INSURANCEPolicy Number: Hospital Effective Repository Date:2017-08-29 08/29/2017 KATHERIN S Primary Insurance:AETNA KATHERIN S Jamie [id number] MCRPolicy Number: CARVERDOB: Community [place] MEBKHZQSEffective [id number] Park Medical Center, [place] Date:1737-38-77KT BOX Repository [address]Fim: [phone] [place] [phone] (HP) [phone]: 08/29/2017 Secondary NOT GIVENUNK [place] Insurance:SELF PAY Community INSURANCEPolicy Number: Hospital Effective Repository Date:2017-08-29 08/29/2017 KATHERIN S Primary Insurance:AETNA KATHERIN S Jamie [id number] MCRPolicy Number: CARVERDOB: Community [place] P[place] MEBKHZQSEffective [id number] Park Medical [facility], [place] Date:5508-17-36IE BOX Repository [address]Bug: [phone] [place], [place] [phone] (HP) [phone]: 08/29/2017 Secondary NOT GIVENUNK [place] Insurance:SELF PAY Community INSURANCEPolicy Number: Hospital Effective Repository Date:2017-08-29 08/27/2017 KATHERIN S Primary Insurance:AETNA KATHERIN S Jamie [id number] MCRPolicy Number: CARVERDOB: Community [place] MEBKHZQSEffective [id number] Park Medical Center, [place] Date:5369-81-98EQ BOX Repository [address]Fwm: [phone] [place] [phone] (HP) [phone]: 08/27/2017 Secondary NOT GIVENUNK [place] Insurance:SELF PAY Community INSURANCEPolicy Number: Hospital Effective Repository Date:2017-08-27 08/20/2017 KATHERIN Cutler Primary Insurance:AETNA KATHERIN Cutler Jamie [id number] MCRPolicy Number: CARVERDOB: Community [place] MEBKHZQSEffective [id number] Park Medical [facility], [place] Date:4930-30-08WU BOX Repository [address]Uxo: [phone] [facility] [place], [place] [phone] (HP) [phone]: 08/20/2017 Secondary NOT GIVENUNK [place] Insurance:SELF PAY Community INSURANCEPolicy Number: Hospital Effective Repository Date:2017-08-20 08/19/2017 KATHERIN S Primary Insurance:AETJUAN CARLOS Cutler [place] [id number] MCRPolicy Number: CARVERDOB: Community [place] MEBKHZQSEffective [id number] Memorial Hospital, [place] Date:7647-98-51TM BOX Repository [address]Fjh: [phone] [facility] [place], [place] [phone] (HP) [phone]: 08/19/2017 Secondary NOT GIVENUNK [place] Insurance:SELF PAY Community INSURANCEPolicy Number: Hospital Effective Repository Date:2017-08-15 08/19/2017 KATHERIN Cutler Primary Insurance:AETJUAN CARLOS Cutler [place] [id number] MCRPolicy Number: CARVERDOB: Community [place] MEBKHZQSEffective 4758-07-19QLZE[facility] [place] Date:3416-94-13EE BOX Repository 28021Ftn: [phone] [facility] [place], [place] [phone] (HP) [phone]: 08/19/2017 Secondary NOT GIVENUNK [place] Insurance:SELF PAY Community INSURANCEPolicy Number: Hospital Effective Repository Date:2017-08-07 08/19/2017 KATHERIN S Primary Insurance:AETNA KATHERIN Cutler [place] [id number] MCRPolicy Number: CARVERDOB: Community [place] MEBKHZQSEffective 0249-09-28[facility] [place] Date:9241-14-19IE BOX Repository 287[address]Kix: [phone] [place] [phone] (HP) [address]EW: 08/19/2017 Secondary NOT GIVENUNK Jamie Insurance:SELF PAY Community INSURANCEPolicy Number: Hospital Effective Repository Date:2017-08-19 08/15/2017 KATHERIN S Primary Insurance:AETNA KATHERIN S [place] [id number] MCRPolicy Number: CARVERDOB: Community [place] WENCESLAOZQSEffective 4709-48-49WNTH[facility] [place] Date:1057-86-86AJ BOX Repository 64249Voy: [phone] [place] [phone] (HP) [address]CR: 08/15/2017 Secondary NOT GIVENUNK [place] Insurance:SELF PAY Community INSURANCEPolicy Number: Hospital Effective Repository Date:2017-07-09 08/15/2017 KATHERIN S Primary Insurance:AETNA KATHERIN Cutler [place] [id number] MCRPolicy Number: CARVERDOB: Community [place] BKHZQSEffective [id number]:7085-55-49VZ BOX Repository [address]Dyb: [phone], [place] [phone] (HP) [address]RT: 08/15/2017 Secondary NOT GIVENUNK [place] Insurance:SELF PAY Community INSURANCEPolicy Number: Hospital Effective Repository Date:2017-08-15 08/13/2017 KATHERIN S Primary Insurance:SELF NOT GIVENUNK [place] [id number] PAY INSURANCEPolicy Community [place] Number: Effective [facility] [place] Date:2017-08-13 Repository 50691Imj: (HP) 08/13/2017 KATHERIN S Primary Insurance:AETNA KATHERIN S [place] [id number] MCRPolicy Number: CARVERDOB: Community [place] CARLQSEffective [id number] Memorial Hospital[place]:1481-85-15WT BOX Repository [address]Nei: [phone] [place] [phone] (HP) [address]KV: 08/13/2017 Secondary NOT GIVENUNK Jamie Insurance:SELF PAY Community INSURANCEPolicy Number: Hospital Effective Repository Date:2017-08-13 08/13/2017 KATHERIN S Primary Insurance:AETNA KATHERIN Cutler [place] [id number] MCRPolicy Number: CARVERDOB: Community DIPTI MARTINEZBKHZQSEffective 0675-76-38PNVMassena Memorial Hospital, [place] Date:5941-34-69WQ BOX Repository [address]Ygt: [phone] [place] [phone] (HP) [address]EM: 08/13/2017 Secondary NOT GIVENUNK Jamie Insurance:SELF PAY Community INSURANCEPolicy Number: Hospital Effective Repository Date:2017-08-13 08/13/2017 KATHERIN S Primary Insurance:AETJUAN CARLOS Cutler [place] [id number] MCRPolicy Number: CARVERDOB: Community [place] BKHZQSEffective 1444-07-19THGMassena Memorial Hospital, [place]:0025-89-44KM BOX Repository [address]Xoq: [phone] [place] [phone] (HP) [address]IQ: 08/13/2017 Secondary NOT GIVENUNK Jamie Insurance:SELF PAY Community INSURANCEPolicy Number: Hospital Effective Repository Date:2017-07-08 08/07/2017 KATHERIN S Primary Insurance:AETJUAN CARLOS Cutler [place] [id number] MCRPolicy Number: CARVERDOB: Community [place] BKHZQSEffective [id number] Memorial Hospital, [place]:3781-70-86IA BOX Repository [address]3635Qsp: [phone] [place] [phone] (HP) [address]NM: 08/07/2017 Secondary NOT GIVENUNK Jamie Insurance:SELF PAY Community INSURANCEPolicy Number: Hospital Effective Repository Date:2017-08-07 08/06/2017 KATHERIN Cutler Primary Insurance:HERIBERTO Cutlre [place] [id number] MCRPolicy Number: CARVERDOB: Community [place] BKHZQSEffective 8070-06-71BTHMassena Memorial Hospital, [place]:4345-52-95UY BOX Repository 07338Wvu: [phone] [place] [phone] (HP) [address]FK: 08/06/2017 Secondary NOT GIVENUNK Jamie Insurance:SELF PAY Community INSURANCEPolicy Number: Hospital Effective Repository Date:2017-08-06 07/31/2017 KATHERIN Cutler Primary Insurance:HERIBERTO Cutler [place] [id number] MCRPolicy Number: CARVERDOB: Community [place] BKHZQSEffective 5667-29-48DQDMassena Memorial Hospital, [place] Date:7389-11-11IP BOX Repository 24781Qeq: [phone] [place] [phone] (HP) [address]MM: 07/31/2017 Secondary NOT GIVENUNK [place] Insurance:SELF PAY Community INSURANCEPolicy Number: Hospital Effective Repository Date:2017-07-31 07/04/2017 KATHERIN Cutler Primary Insurance:HERIBERTO Cutler [place] [id number] MCRPolicy Number: CARVERDOB: Community [place] BKHZQSEffective 7942-44-69XQFMassena Memorial Hospital, [place]:4901-14-68XH BOX Repository 70[address]Ivf: [phone] [place] [phone] (HP) [address]IO: 07/04/2017 Secondary NOT GIVENUNK Jamie Insurance:SELF PAY Community INSURANCEPolicy Number: Hospital Effective Repository Date:2017-06-17 07/02/2017 KATHERIN Cutler Primary Insurance:HERIBERTO Cutler [place] [id number] MCRPolicy Number: CARVERDOB: Community [place] BKHZQSEffective 4955-06-63DUHMassena Memorial Hospital, [place]:5545-32-78WV BOX Repository [address]Mzd: [phone] [place], [place] [phone] (HP) [address]AD: 07/02/2017 Secondary NOT GIVENUNK [place] Insurance:SELF PAY Community INSURANCEPolicy Number: Hospital Effective Repository Date:2017-07-02 06/19/2017 KATHERIN Cutler Primary Insurance:AETJUAN CARLOS Cutler [place] [id number] MCRPolicy Number: CARVERDOB: Community [place] MEBKHZQSEffective 1446-99-68CWVMassena Memorial Hospital, [place] Date:5720-77-16YL BOX Repository 15044Acv: [phone] [place] [phone] (HP) [phone]: 06/19/2017 Secondary NOT GIVENUNK [place] Insurance:SELF PAY Community INSURANCEPolicy Number: Hospital Effective Repository Date:2017-06-19 06/19/2017 KATHERIN S Primary Insurance:AETJUAN CARLOS Cutler [place] [id number] MCRPolicy Number: CARVERDOB: Community [place] MEBKHZQSEffective 5515-03-70ZMBMassena Memorial Hospital, [place]:6236-82-08TS BOX Repository 56141Gyo: [phone] [place], [place] [phone] (HP) [address]UU: 06/19/2017 Secondary NOT GIVENUNK Jamie Insurance:SELF PAY Community INSURANCEPolicy Number: Hospital Effective Repository Date:2017-06-19 06/19/2017 KATHERIN Cutler Primary Insurance:WILMARTJUAN CARLOS Cutler [place] [id number] MCRPolicy Number: CARVERDOB: Community [place] MEBKHZQSEffective [id number] [facility] [place] Date:1305-93-48TP BOX Repository 13991Qjv: [phone] [place], [place] [phone] (HP) [address]CB: 06/19/2017 Secondary NOT GIVENUNK Jamie Insurance:SELF PAY Community INSURANCEPolicy Number: Hospital Effective Repository Date:2017-06-19 06/19/2017 KATHERIN Cutler Primary Insurance:HERIBERTO Cutler [place] [id number] MCRPolicy Number: CARVERDOB: Community [place] BKHZQSEffective [id number] Memorial Hospital, [place]:7381-21-26TD BOX Repository 69775Yqt: [phone] [facility], [place] [phone] (HP) [address]MH: 06/19/2017 Secondary NOT GIVENUNK [place] Insurance:SELF PAY Community INSURANCEPolicy Number: Hospital Effective Repository Date:2017-06-19 06/19/2017 KATHERIN Cutler Primary Insurance:HERIBERTO Cutler [place] [id number] MCRPolicy Number: CARVERDOB: Community [place] BKHZQSEffective [id number] Memorial Hospital, [place] Date:8775-54-56RI BOX Repository [address]118Inf: [phone] [facility], [place] [phone] (HP) [address]DK: 06/19/2017 Secondary NOT GIVENUNK Jamie Insurance:SELF PAY Community INSURANCEPolicy Number: Hospital Effective Repository Date:2017-06-19 06/04/2017 KATHERIN Cutler Primary Insurance:HERIBERTO Cutler [place] [id number] MCRPolicy Number: CARVERDOB: Community [place] WENCESLAOZQSEffective [id number] Memorial Hospital, [place]:8706-59-17SJ BOX Repository 15737Uot: [phone] [facility], [place] [phone] (HP) [address]IJ: 06/04/2017 Secondary NOT GIVENUNK Jamie Insurance:SELF PAY Community INSURANCEPolicy Number: Hospital Effective Repository Date:2017-06-04 05/30/2017 KATHERIN Cutler Primary Insurance:HERIBERTO Cutler [place] [id number] MCRPolicy Number: CARVERDOB: Community [place] BJAMESZQSEffective [id number] Memorial Hospital, [place]:3477-72-47OH BOX Repository 11744Gpr: [phone] [place], [place] [phone] (HP) [address]TY: 05/30/2017 Secondary NOT GIVENUNK Jamie Insurance:SELF PAY Community INSURANCEPolicy Number: Hospital Effective Repository Date:2017-05-30 05/30/2017 KATHERIN S Primary Insurance:AETJUAN CARLOS Cutler [place] [id number] MCRPolicy Number: CARVERDOB: Community [place] MEBKHZQSEffective [id number] Memorial Hospital, [place] Date:0738-08-14TB BOX Repository 13368Tiu: [phone] [place], [place] [phone] (HP) [address]OM: 05/30/2017 Secondary NOT GIVENUNK Jamie Insurance:SELF PAY Community INSURANCEPolicy Number: Hospital Effective Repository Date:2017-05-30 05/30/2017 KATHERIN S Primary Insurance:AETNA KATHERIN Cutler [place] [id number] MCRPolicy Number: CARVERDOB: Community [place] MEBKHZQSEffective 0823-93-00CFAMassena Memorial Hospital, [place]:3462-93-76GB BOX Repository [address]Qzj: [phone] [place] [phone] (HP) [address]EN: 05/30/2017 Secondary NOT GIVENUNK [place] Insurance:SELF PAY Community INSURANCEPolicy Number: Hospital Effective Repository Date:2017-05-30 05/30/2017 KATHERIN S Primary Insurance:AETJUAN CARLOS Cutler [place] [id number] MCRPolicy Number: CARVERDOB: Community [place] MEBKHZQSEffective 4629-08-91QTGMassena Memorial Hospital, [place] Date:1775-87-73VA BOX Repository 16661Wkk: [phone] [place] [phone] (HP) [address]MQ: 05/30/2017 Secondary NOT GIVENUNK Jamie Insurance:SELF PAY Community INSURANCEPolicy Number: Hospital Effective Repository Date:2017-05-30 05/30/2017 KATHERIN S Primary Insurance:AETNA KATHERIN Cutler [place] [id number] MCRPolicy Number: CARVERDOB: Community [place] BJAMESZQSEffective 7618-70-49TKUMassena Memorial Hospital, [place]:3452-68-60TI BOX Repository 60436Dqr: [phone] [place] [phone] (HP) [address]NL: 05/30/2017 Secondary NOT GIVENUNK [place] Insurance:SELF PAY Community INSURANCEPolicy Number: Hospital Effective Repository Date:2017-05-30 05/30/2017 KATHERIN S Primary Insurance:HERIBERTO Cutler [place] [id number] MCRPolicy Number: CARVERDOB: Community [place] BJAMESZQSEffective [id number] Memorial Hospital, [place]:4847-46-32YO BOX Repository 74735Psb: [phone] [facility] [place] [phone] (HP) [address]WS: 05/30/2017 Secondary NOT GIVENUNK Jamie Insurance:SELF PAY Community INSURANCEPolicy Number: Hospital Effective Repository Date:2017-05-30 05/30/2017 KATHERIN S Primary Insurance:HERIBERTO Cutler [place] [id number] MCRPolicy Number: CARVERDOB: Community [place] BJAMESZQSEffective [id number] Memorial Hospital, [place]:3874-51-74NI BOX Repository 99553Gks: [phone] [facility] [place] [phone] (HP) [address]OC: 05/30/2017 Secondary NOT GIVENUNK [place] Insurance:SELF PAY Community INSURANCEPolicy Number: Hospital Effective Repository Date:2017-05-30 05/28/2017 KATHERIN S Primary Insurance:HERIBERTO Cutler [place] [id number] MCRPolicy Number: CARVERDOB: Community [place] BJAMESZQSEffective 1219-96-18EUWMassena Memorial Hospital, [place]:8905-50-29IW BOX Repository 96645Slu: [phone] [facility] [place] [phone] (HP) [address]WI: 05/28/2017 Secondary NOT GIVENUNK [place] Insurance:SELF PAY Community INSURANCEPolicy Number: Hospital Effective Repository Date:2017-05-23 05/28/2017 KATHERIN S Primary Insurance:HERIBERTO Cutler [place] [id number] MCRPolicy Number: CARVERDOB: Community [place] MEBKHZQSEffective [id number] Memorial Hospital, [place]:1505-36-17XN BOX Repository 97334Exn: [phone] [facility], [place] [phone] (HP) [address]IK: 05/28/2017 Secondary NOT GIVENUNK Jamie Insurance:SELF PAY Community INSURANCEPolicy Number: Hospital Effective Repository Date:2017-05-28 05/23/2017 KATHERIN S Primary Insurance:AETNA KATHERIN Cutler [place] [id number] MCRPolicy Number: CARVERDOB: Community [place] MEBKHZQSEffective [id number] Memorial Hospital, [place]:8551-24-66EJ BOX Repository 62648Sgu: [phone] [facility], [place] [phone] (HP) [address]HJ: 05/23/2017 Secondary NOT GIVENUNK [place] Insurance:SELF PAY Community INSURANCEPolicy Number: Hospital Effective Repository Date:2017-05-23 05/23/2017 KATHERIN S Primary Insurance:HERIBERTO Cutler [place] [id number] MCRPolicy Number: CARVERDOB: Community [place] MEBKHZQSEffective [id number] Memorial Hospital, [place]:4973-15-27CK BOX Repository 77873Bxk: [phone] [facility], [place] [phone] (HP) [address]ZA: 05/23/2017 Secondary NOT GIVENUNK [place] Insurance:SELF PAY Community INSURANCEPolicy Number: Hospital Effective Repository Date:2017-05-23 05/15/2017 KATHERIN S Primary Insurance:AETJUAN CARLOS Cutler [place] [id number] MCRPolicy Number: CARVERDOB: Community [place] BKHZQSEffective 5421-13-26CPLMassena Memorial Hospital, [place]:7164-27-13WB BOX Repository 307[address]Ngs: [phone] [place], [place] [phone] (HP) [address]ZJ: 05/15/2017 Secondary NOT GIVENUNK Jamie Insurance:SELF PAY Community INSURANCEPolicy Number: Hospital Effective Repository Date:2017-05-09 05/15/2017 KATHERIN S Primary Insurance:AETNA KATHERIN S [place] [id number] MCRPolicy Number: CARVERDOB: Community [place] WENCESLAOZQSEffective [id number] Memorial Hospital, [place] Date:5735-90-50TH BOX Repository 537[address]Hle: [phone] [place] [phone] (HP) [address]HS: 05/15/2017 Secondary NOT GIVENUNK [place] Insurance:SELF PAY Community INSURANCEPolicy Number: Hospital Effective Repository Date:2017-05-15 05/07/2017 KATHERIN S Primary Insurance:AETNA KATHERIN S [place] [id number] MCRPolicy Number: CARVERDOB: Community [place] BJAMESZQSEffective [id number] Memorial Hospital, [place]:6758-24-41YR BOX Repository 43081Oql: [phone] [place] [phone] (HP) [phone]: 05/07/2017 Secondary NOT GIVENUNK [place] Insurance:SELF PAY Community INSURANCEPolicy Number: Hospital Effective Repository Date:2017-05-01 05/02/2017 KATHERIN S Primary Insurance:AETNA KATHERIN S [place] [id number] MCRPolicy Number: CARVERDOB: Community [place] BKHZQSEffective [id number] Memorial Hospital[place]:1727-18-91ER BOX Repository 40717Rdq: [phone] [place] [phone] (HP) [phone]: 05/02/2017 Secondary NOT GIVENUNK Jamie Insurance:SELF PAY Community INSURANCEPolicy Number: Hospital Effective Repository Date:2017-05-01 04/23/2017 KATHERIN Cutler Primary Insurance:AESTEFANIE Cutler [place] [id number] MCRPolicy Number: CARVERDOB: Community [place] MEBKHZQSEffective [id number] Memorial Hospital[place]:8453-63-69EP BOX Repository 86680Rjj: [phone] [facility] [place], [place] [phone] (HP) [phone]: 04/23/2017 Secondary NOT GIVENUNK Jamie Insurance:SELF PAY Community INSURANCEPolicy Number: Hospital Effective Repository Date:2017-04-23 04/23/2017 KATHERIN Cutler Primary Insurance:AETJUAN CARLOS Cutler [place] [id number] MCRPolicy Number: CARVERDOB: Community [place] MEBKHZQSEffective 0995-45-50CQCMassena Memorial Hospital[place]:4111-11-23OS BOX Repository 02327Dnm: [phone] [facility], [place] [phone] (HP) [phone]: 04/23/2017 Secondary NOT GIVENUNK [place] Insurance:SELF PAY Community INSURANCEPolicy Number: Hospital Effective Repository Date:2017-04-11 04/08/2017 Katherin Cutler Primary Insurance:AESTEFANIE Cutler [place] [id number] MCRPolicy Number: CarverDOB: Community [place] MEBKHZQSEffective [id number] Eye, [facility]:3236-16-75XF BOX Repository 80981Tsh: [phone] [facility], [place] [phone] (HP) [phone]: 04/08/2017 Secondary NOT GIVENUNK Jamie Insurance:SELF PAY Community INSURANCEPolicy Number: Hospital Effective Repository Date:2017-04-08 04/07/2017 Katherin S Primary Insurance:AETJUAN CARLOS Cutler [place] [id number] MCRPolicy Number: CarverDOB: Community [place] MEBKHZQSEffective 6137-52-11[place] Date:7259-94-97LH BOX Repository 74887Xkh: [phone] JESSICA [place]UN[place] [phone] () [phone]: 04/07/2017 Secondary NOT GIVENUNK [place] Insurance:SELF PAY Community INSURANCEPolicy Number: Hospital Effective Repository Date:2017-04-07 04/05/2017 Katherin Cutler Primary Insurance:AETNA Katherin Cutler [place] [id number] MCRPolicy Number: CarverDOB: Community [place] MEBKHZQSEffective 4688-89-01CZTEverett[place] Date:0540-13-65BR BOX Repository 20751Brv: [phone] JESSICA BRUNO [phone] () [phone]: 04/05/2017 Secondary NOT GIVENUNK Jamie Insurance:SELF PAY Community INSURANCEPolicy Number: Hospital Effective Repository Date:2017-04-05
== END ==
PROVIDERS: Physician Assistant Surgical; Family Provider Internal Medicine; PCP Internal Medicine; Referring Provider Specialist; Visit Provider Specialist
DX: Z01.818 Encounter for other preprocedural examination (principal); E11.9 Type 2 diabetes mellitus without complications
CPT/HCPCS: 36415; 80048; 83036; 85025; 87081

== ENCOUNTER → 2018-04-03 13:20 | Outpatient (CLI) | payer MEDICARE, SELFPAY ==
[2018-04-03 13:17] VITALS: BMI 44.1
--- NOTE | 2018-04-03 13:22 | RAD_ITS ---
STUDY: X-RAY - RIGHT KNEE REASON FOR EXAM: Chronic knee pain. TECHNIQUE: 4 view(s) of the knee. COMPARISON: Radiographs 09/26/2017. FINDINGS: There is osteopenia. There is a subchondral insufficiency fracture of the medial femoral condyle with a larger subchondral lucency. Normal visualized proximal tibia and fibula. Normal proximal tibiofibular articulation. There is severe joint space narrowing of the medial femorotibial compartment, increased since the prior study. Normal lateral femorotibial compartment. Normal patellofemoral articulation. The soft tissue structures are unremarkable. RAD/Knee 4 or More Views IMPRESSION: Subchondral insufficiency fracture of the medial femoral condyle with increased subchondral collapse. Arthrosis of the medial femorotibial compartment. Osteopenia. Electronically Signed: Lennox Miranda MD at 13:53 EST Tel , Service support ,
== END ==
PROVIDERS: Family Provider Internal Medicine; PCP Internal Medicine; Referring Provider Orthopaedic Surgery; Visit Provider Orthopaedic Surgery
DX: M25.561 Pain in right knee (principal); M25.461 Effusion, right knee
CPT/HCPCS: 73564

== ENCOUNTER 2018-05-15 12:57 | Outpatient (RCR) | payer MEDICARE, SELFPAY ==
[2018-04-03 13:17] VITALS: BMI 44.1
== END 2018-05-18 23:59 ==
LOC: NS 12:57
PROVIDERS: Family Provider Internal Medicine; PCP Internal Medicine; Visit Provider Orthopaedic Surgery
DX: E66.01 Morbid (severe) obesity due to excess calories (principal); Z68.41 Body mass index [BMI] 40.0-44.9, adult; Z71.3 Dietary counseling and surveillance
CPT/HCPCS: 97802

== ENCOUNTER 2018-05-29 14:33 | Outpatient (RCR) | payer MEDICARE, SELFPAY ==
[2018-04-03 13:17] VITALS: BMI 44.1
== END 2018-06-17 23:59 ==
LOC: NS 14:33
PROVIDERS: Family Provider Internal Medicine; PCP Internal Medicine; Visit Provider Orthopaedic Surgery
DX: E66.01 Morbid (severe) obesity due to excess calories (principal); Z68.41 Body mass index [BMI] 40.0-44.9, adult; Z71.3 Dietary counseling and surveillance
CPT/HCPCS: 97803

== ENCOUNTER 2018-06-23 13:59 | Outpatient (RCR) | payer MEDICARE, SELFPAY ==
[2018-04-03 13:17] VITALS: BMI 44.1
== END 2018-07-03 23:59 | disposition home or self-care (01) ==
LOC: NS 13:59
PROVIDERS: Family Provider Internal Medicine; PCP Internal Medicine; Visit Provider Orthopaedic Surgery
DX: E66.01 Morbid (severe) obesity due to excess calories (principal); Z68.41 Body mass index [BMI] 40.0-44.9, adult; Z71.3 Dietary counseling and surveillance
CPT/HCPCS: 97803

== ENCOUNTER 2018-07-20 20:22 | Observation (INO) | payer MEDICARE, SELFPAY ==
[2018-04-03 13:17] VITALS: BMI 44.1
[2018-07-20 20:24] VITALS: BP 111/54; PULSE 44; RESP 20; TEMP 35.6; O2SAT 96; BMI 42.1
--- NOTE | 2018-07-20 20:32 | EKG12_ITS ---
Test Reason : SOB Blood Pressure : / mmHG Vent. Rate : 045 BPM Atrial Rate : 045 BPM P-R Int : 236 ms QRS Dur : 088 ms QT Int : 436 ms P-R-T Axes : -22 009 -24 degrees QTc Int : 377 ms Sinus bradycardia with sinus arrhythmia with 1st degree A-V block T wave abnormality, consider lateral ischemia Abnormal ECG Confirmed by LOU KEE, SAMI ([id number]), legal editor JIMMY HART ([id number]) on 07/21/2018 11:52:16 AM Referred By: EDIS Confirmed By:SAMI BLAKE MD
--- NOTE | 2018-07-20 20:32 | RAD_ITS ---
STUDY: X-RAY CHEST REASON FOR EXAM: Female, 77 years old. Shortness of breath TECHNIQUE: Frontal portable view of the chest was performed COMPARISON: 31 July 2017 FINDINGS: The lungs are clear and expanded. There is no demonstrated pleural abnormality. Normal size heart. Normal mediastinum and deondre. Normal visualized pulmonary arteries. Normal visualized aortic arch and descending thoracic aorta. Normal visualized thoracic spine. Normal visualized ribs, clavicles, and shoulders. There is no demonstrated abnormality of the visualized soft tissue structures of the upper abdomen. RAD/Chest 1 View (Portable) IMPRESSION: Unremarkable portable frontal view of the chest. Electronically Signed: Jonh Brantley, at 20:52 EDT Tel , Service support ,
[2018-07-20 21:00] VITALS: PULSE 50
[2018-07-20 21:05] LABS: Absolute Lymphocyte Count 2.47 X10^3/ul (0.83-4.51); Basophil# 0.02 X10^3/uL; Basophil% 0.2 % (0-1); Eosinophil# 0.07 X10^3/uL; Eosinophils% 0.7 % (0-5); Hematocrit 43.3 % (37-47); Hemoglobin 14.8 g/dl (12.0-15.0); Lymphocyte # 2.47 X10^3/ul (4.0); Lymphocyte % 23.1 % (19-41); Mean Corp Hgb Conc 34.2 g/gl (32-36); Mean Corpuscular Hgb 30.8 pg (27.0-32.0); Mean Corpuscular Volume 90.2 fL (81-99); Monocyte# 1.07 X10^3/uL; Neutrophil # 7.03 X10^3/uL (2.7-7.7); Neutrophil % 65.6 % (47-70); Platelet Count 169 K/mm3 (150-450); White Blood Count 10.7 K/mm3 (4.4-11.0)
[2018-07-20] MEDS: Aspirin 81 MG TAB.CHEW 324 MG PO (21:05)
[2018-07-20 21:06] VITALS: O2SAT 97
[2018-07-20 21:06] LABS: POSITIVE COUNT NO; POSITIVE DIFFERENTIAL NO; POSITIVE MORPHOLOGY NO
[2018-07-20 21:23] LABS: Anion Gap 10 (5-15); BUN 26 mg/dL (7-18); BUN/Creat Ratio 16.6 RATIO (10-20); Chloride 98 mmol/L (98-107); Creatinine, Serum 1.57 mg/dL (0.55-1.02); EST Glomerular Filtration Rate 34 mL/min (>60); Est Glom Filt Rate - Afr Amer 41 mL/min (>60); Estimated Creatinine Clearance 25.22 ml/min; Glucose 242 mg/dL (74-106); Potassium 4.9 mmol/L (3.5-5.1); Sodium Level 134 mmol/L (136-145)
--- NOTE | 2018-07-20 22:53 | ED.DCSUM_ITS ---
- ER Visit Summary Date of Service: 07/20/18 Chief Complaint: Chest pain, shortness of breath History of Present Illness: The patient is a 77 F presenting with chest pain, shortness of breath. Patient states this started today. She states her symptoms are worsened with exertion. She states she has been having lower back pain and today the pain was in her mid back. She also complains of bilateral lower extremity swelling. She denies fever or cough. Denies other complaints. Physical Examination: Vitals are stable. Heart rate 44. Patient is afebrile. Alert no acute distress. HEENT exam is unremarkable. Neck is supple. Lungs are clear and equal bilaterally. Heart is regular and bradycardic Abdomen is soft nontender nondistended. Extremities symmetric edema Skin is warm and dry. No focal neurologic deficit. Remainder of exam is unremarkable. Emergency Department Course and Treatment: EKG sinus bradycardia with first- degree AV block, rate of 45, lateral T wave inversion. CBC, chemistries unremarkable other than glucose 242, BUN 26, creatinine 1.57. Previous creatinine 0.79. Troponin is negative. Patient was given aspirin on arrival. On reevaluation she is chest pain-free. Discussed with the hospitalist for observation. Disposition: Observation Impression: Chest pain, bradycardia This note was generated with [employer] dictation software. It may contain incorrect words, spelling, and punctuation that were not noted in review of the chart prior to signing ED Disposition - Plan for ED Patient: Referrals: Luanne Aquino MD [Primary Care Provider] -
--- NOTE | 2018-07-20 23:40 | PCM.HP.STD ---
Problem List (1) Dysrhythmia Status: Acute History of Present Illness Date of Admission: 07/20/18 Chief Complaint: palpitations The patient is a 77 year old F with a history of anxiety disorder; type 2 diabetes; paroxysmal A. fib; obesity; and hyperlipidemia who presented with a feeling of slow and irregular beating of her heart. She felt like she was having a heart attack and that she was going to . At the same time she had pain in her middle back. Typically she has lower back pain and she see Dr. Gutierrez pain management. Associated with her symptoms is nausea without vomiting. Also she had shortness of breath. Further she had a feeling of pressure around her bilateral eyes which has since disappeared. Her PCP also noticed that her heart rate is slow for which reason she was scheduled to have an appointment again with a PCP a week after this presentation. She reported in the past she was having irregular heartbeat that was treated by Dr. 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 At emergency department patient was found to have first-degree AV block with EKG changes. She was found to have severely elevated creatinine which trended down without any intervention. She reported she was started on diuretics about a week ago because of bilateral leg swelling. Past Medical History Past Medical History (Chronic Problems): Chronic Problems (Last Reviewed 07/21/18 @ 06:16 by Carmelo Burroughs MD) Rapid palpitations (Chronic) Essential (primary) hypertension (Chronic) Hyperlipidemia (Chronic) Medical History: Medical History (Last Reviewed 07/21/18 @ 06:16 by Carmelo Burroughs MD) History of DVT of lower extremity (Resolved) Onset Date: 05/2017 Z86.718 S/P knee surgery Essential (primary) hypertension (Chronic) I10 Paroxysmal atrial fibrillation (Suspected) I48.0 Hyperlipidemia (Chronic) E78.5 Anxiety F41.9 History of hysterectomy Z90.710 DDD (degenerative disc disease) DVT (deep venous thrombosis) I82.409 Obesity E66.9 Osteoarthritis M19.90 Small bowel obstruction K56.609 Type 2 diabetes mellitus E11.9 Segmental and somatic dysfunction of pelvic region M99.05 Segmental and somatic dysfunction of sacral region M99.04 Segmental and somatic dysfunction of thoracic region M99.02 History of hysterectomy Z98.890, Z90.710 Segmental and somatic dysfunction of lumbar region (Inactive) M99.03 whipple surgery Allergies duloxetine [From Cymbalta] Allergy (Verified 07/20/18 20:24) Other hallucinations/delusions ramelteon [From Rozerem] Allergy (Verified 07/20/18 20:24) Other bupropion Adverse Reaction (Verified 07/20/18 20:24) Other UNKNOWN bupropion HCl [From Wellbutrin] Adverse Reaction (Verified 07/20/18 20:24) Other UNKNOWN dexfenfluramine HCl [From Redux] Adverse Reaction (Verified 07/20/18 20:24) Unknown hydrochlorothiazide Adverse Reaction (Verified 07/20/18 20:24) Other UNKNOWN ketorolac tromethamine [From Toradol] Adverse Reaction (Verified 07/20/18 20:24) Itching oxaprozin [From Daypro] Adverse Reaction (Verified 07/20/18 20:24) Other UNKNOWN Home Medications: Ambulatory Orders Medication Instructions Recorded ALPRAZolam [Xanax] 0.5 mg PO QHS 12/11/13 Diltiazem CD [Cardizem CD] 240 mg PO DAILY 12/11/13 Ondansetron [Zofran Odt] 4 mg PO Q6H PRN PRN #30 tab 06/12/17 Zolpidem Tartrate [Ambien Cr] 12.5 mg PO QHS PRN PRN 07/31/17 bumetanide 0.5 mg tablet 0.5 mg PO DAILY 04/03/18 irbesartan 300 mg tablet 300 mg PO QDAY 04/03/18 meloxicam 7.5 mg tablet 7.5 mg PO DAILY 04/03/18 oxycodone 5 mg tablet 7.5 mg PO BID PRN tab 04/03/18 pravastatin 20 mg tablet 20 mg PO DAILY 04/03/18 Atenolol 50 mg PO QDAY 07/21/18 Canagliflozin [Invokana] 300 mg PO 07/21/18 Codeine Phosphate/Guaifenesin 5 ml PO PRN PRN 07/21/18 [Codeine-Guaifen 10-100 mg/5 ml] Nystatin Powder [Mycostatin Powder] 1 applic TOPICAL TID 07/21/18 Triamcinolone 0.025% Cream 1 applic TOPICAL TID 07/21/18 [Kenalog] metFORMIN (XR) [Glucophage Xr] 500 mg PO BID 07/21/18 Surgical History: Surgical History (Last Reviewed 07/21/18 @ 06:16 by Carmelo Burroughs MD) H/O medial meniscus repair of right knee Z98.890 History of bladder suspension procedure Z98.890, Z87.448 History of bowel resection Z98.890, Z90.49 Hx of cholecystectomy Z90.49 History of bilateral carpal tunnel release Z98.890 History of bladder suspension procedure Z98.890, Z87.448 S/P cholecystectomy Z90.49 sigmoid colon removed 3-4 ft of intestines removed vaginal wall repaired vaginal wall to rectum was repaired Surgical History: arthroscopy, knee - Right knee meniscal repair, cholecystectomy, - - 2014 had bowel resection, also had whipple procedure in [place] 2007-, tubal ligation, carpal tunnel in wrist, shoulder and hand surgery hysterectemy, bladder suspension, wall between vagina and colon. 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 Denies: Cough Gastrointestinal: Reports: Nausea. Denies: Abdominal Pain, Vomiting Genitourinary: Denies: Dysuria Musculoskeletal: Reports: Back Pain. Denies: Joint Pain, Joint Tenderness Skin: Denies: Rash, Wounds Neurological: Denies: Numbness, Tingling, Focal weakness Psychiatric: Reports: Anxiety. Denies: Depression, Homicidal Ideations, Suicidal Ideations Hematologic/ Lymphatic: Denies: Easy Bruising, Easy Bleeding VTE Information - Inpt Only VTE Present on Admission: No VTE Mechan Device Prophylaxis: None VTE Pharm Prophylaxis ordered?: Yes Patient Problems: Active and Suspected Problems (Last Reviewed 07/21/18 @ 06:16 by Carmelo Burroughs MD) Dysrhythmia (Acute) - Physical Exam General: Alert, Oriented x3, Cooperative, - - Obese HEENT: Atraumatic, PERRLA, EOMI, Normocephalic Neck: Supple, No JVD, Negative Carotid Bruits Lungs: Clear to auscultation, Normal air movement Cardiovascular: Regular rate, No murmurs Abdomen: Bowel Sounds Present, Soft, Non Tender Extremities: No edema, Capillary Refill Less than 3 Seconds Skin: Excoriated - bilateral legs Musculoskeletal: No Tenderness to Palpation of Joints or Extremities Neurological: Cranial nerves II-XII grossly intact Psych/Mental Status: Normal Affect, Appropriate Vital Signs Temp Pulse Resp BP Pulse Ox 96.0 F L 50 L 20 H 111/54 L 97 07/20/18 20:24 07/20/18 21:00 07/20/18 20:24 07/20/18 20:24 07/20/18 21:06 Oxygen Flow Rate (L/min) 2 Oxygen Delivery Method Nasal Cannula Weight: 107.955 kg Body Mass Index (BMI) 42.1 Finger Stick Blood Glucose 173 Laboratory Tests Past 24 Hrs 07/20/18 07/20/18 20:50 20:50 WBC 10.7 RBC 4.80 Hgb 14.8 Hct 43.3 MCV 90.2 MCH 30.8 MCHC 34.2 RDW 14.0 RDW Differential 46.0 H Plt Count 169 MPV 11.0 Immature Gran % (Auto) 0.400 Neut % (Auto) 65.6 Lymph % (Auto) 23.1 [place] % (Auto) 10.0 Eos % (Auto) 0.7 Baso % (Auto) 0.2 Absolute Neuts (auto) 7.0 Absolute Lymphs (auto) 2.47 Total Counted Not Reportable Sodium 134 L Potassium 4.9 Chloride 98 Carbon Dioxide 26.0 Anion Gap 10 BUN 26 H Creatinine 1.57 H Estim Creat Clear Calc 25.22 Est GFR (MDRD) Af Amer 41 L Est GFR (MDRD) Non-Af 34 L BUN/Creatinine Ratio 16.6 Glucose 242 H Calcium 10.0 Troponin I < 0.015 Assessment/Plan All Active Problems (Last Reviewed 07/21/18 @ 06:16 by Carmelo Burroughs MD) Dysrhythmia (Acute) Osteoarthritis of right knee (Acute) History of DVT of lower extremity (Resolved 05/2017) Preop cardiovascular exam (Acute) Altered mental status, unspecified (Resolved) Chest pain (Resolved) Diabetes mellitus (Resolved) Right leg DVT (Resolved) SBO (small bowel obstruction) (Resolved) Shortness of breath (Resolved) The patient is a 77 year old F with a history of anxiety disorder; type 2 diabetes; paroxysmal A. fib; obesity; and hyperlipidemia who presented with a feeling of slow and irregular beating of her heart; fear of dying; and was found to have EKG changes and first-degree AV block as well as severely elevated creatinine. Dysrhythmia Admit to a monitored bed on PCU CXR independently reviewed films prominent pulmonary vessels and cardiomegaly. EKG independently reviewed confirms Q waves in V1 and V2. T wave inversion in lead V4 to V6; and aVF. T wave flattening in leads V2 and V3. Old records reviewed(31 July 2017) showed T wave flattening in leads aVF, V5 and V6 but with normal sinus rhythm. ASA 81 mg p.o. daily We will check lipid panel. Serial cardiac enzymes Stat EKG as needed for chest pain Chemical Stress test in the AM if the cardiac enzymes are negative We will get echocardiogram. We will hold home atenolol and Cardizem. Patient is a patient of Doctor Puentes, open hearth furnace operator helper. Will consult Dr. Puentes DENI On presentation and creatinine was 1.57. Review of old records shows baseline creatinine less than 1. BUN on admission was 26. This could be secondary to overdiuresis. Hold home bumetanide Get BNP Hold home Meloxicam Avoid nephrotoxic BMP trended down on itself Repeat BMP again next am Diabetes mellitus On presentation her blood glucose was not within goal. Since it is too early in admission would hold her home Invokana and metformin. We will put patient on low-dose long-acting insulin and correction scale insulin. N.p.o. for now Accu-Chek every 6 hours. Change pravastatin to high intensity statin. Insomnia Ambien continued Anxiety Xanax prn continued Chronic back pain Oxycodone prn continued. DVT prophylaxis Subcutaneous heparin ordered. Code Visit Inpatient E&M: 79426 Init Hosp L3
[2018-07-20 23:51] VITALS: BP 104/58; PULSE 48; RESP 14; O2SAT 96
[2018-07-21] VITALS (7 sets, daily range): BP systolic 134–143; BP diastolic 73–96; PULSE 56–68; RESP 16–18; TEMP 36.5–37.1; O2SAT 93–100; BMI 42.6
--- NOTE | 2018-07-21 01:20 | EKG12_ITS ---
Test Reason : CP ADMISSION Blood Pressure : / mmHG Vent. Rate : 056 BPM Atrial Rate : 056 BPM P-R Int : 212 ms QRS Dur : 086 ms QT Int : 400 ms P-R-T Axes : 057 018 -30 degrees QTc Int : 386 ms Sinus bradycardia with 1st degree A-V block T wave abnormality, consider lateral ischemia Abnormal ECG Confirmed by DWIGHT KEE, ANNE ([id number]), content editor JIMMY HART ([id number]) on 07/25/2018 7:02:08 AM Referred By: VALENTE Confirmed By:ANNE QUINTANILLA MD
--- NOTE | 2018-07-21 01:20 | ECHOD_ITS ---
Reason For Study: DYSPNEA Procedure This was a 2D Doppler, Color Flow transthoracic echocardiogram. The study was technically limited. Pt has no IV access- being discharged, Pt unable to lay in LLD position d/t back pain. Exam performed portable in patient room. Left Ventricle Normal LV size. The estimated ejection fraction is 60 %. Stage 1 diastolic dysfunction. No regional wall motion abnormalities noted. Right Ventricle Normal RV size. Normal systolic function. Atria Normal left atrium. Normal right atrium. Mitral Valve Normal mitral valve. Tricuspid Valve Normal tricuspid valve. Mild tricuspid valve insufficiency. Pulmonary artery systolic pressure is 38 mmHg. Aortic Valve Normal aortic valve. Pulmonic Valve Normal pulmonic valve. Great Vessels Normal aortic root. The pulmonary artery is normal size. Pericardium/Pleural No pericardial effusion. MMode/2D Measurements & Calculations LVIDd: 4.4 cm IVSd: 1.2 cm Ao root diam: 3.0 cm LVIDs: 2.9 cm LVPWd: 1.2 cm LA dimension: 3.8 cm RVDd: 3.6 cm FS: 33.9 % LAV(MOD-bp): 48.6 ml LA A4 area: 17.8 cm2 RA A4 area: 15.0 cm2 LAV(MOD-bp) Indexed: 23.4 ml/m2 LAV(MOD-sp2): 47.4 ml LAV(MOD-sp4): 47.6 ml Time Measurements MV dec time: 0.22 sec Doppler Measurements & Calculations MV E max robson: 86.8 cm/sec Lat Peak E' Robson: 8.8 cm/sec Med Peak E' Robson: 12.2 cm/sec MV A max robson: 114.4 cm/sec E/E' lat: 9.8 E/E' med: 7.1 MV E/A: 0.76 Ao V2 max: 148.8 cm/sec LV V1 max: 134.9 cm/sec TR max robson: 288.1 cm/sec Ao max P.9 mmHg LV V1 max P.3 mmHg TR max P.4 mmHg Interpretation Summary Normal LV size. The estimated ejection fraction is 60 %. Stage 1 diastolic dysfunction. Mild tricuspid valve insufficiency. Pulmonary artery systolic pressure is 38 mmHg. Ordering Physician: Carmelo Burroughs Referring Physician: MOO REAVES Performed By: Aleyda Chavis, RDCS, RVT
[2018-07-21 03:11] LABS: Bedside Glucose 174 mg/dL (70-110)
[2018-07-21] MEDS: Insulin Lispro 100 UNIT/ML INSULN.PEN SQ ×2 (03:11→06:15)
[2018-07-21] MEDS: Morphine 2 MG/ML Syringe IV (03:17)
[2018-07-21 05:54] LABS: Anion Gap 11 (5-15); BUN 26 mg/dL (7-18); BUN/Creat Ratio 24.3 RATIO (10-20); Calcium,Total 9.7 mg/dL (8.5-10.1); Chloride 101 mmol/L (98-107); Creatinine, Serum 1.07 mg/dL (0.55-1.02); EST Glomerular Filtration Rate 53 mL/min (>60); Est Glom Filt Rate - Afr Amer 64 mL/min (>60); Glucose 169 mg/dL (74-106); Sodium Level 136 mmol/L (136-145)
[2018-07-21] MEDS: Aspirin E.C. 81 MG Tablet PO (06:02)
[2018-07-21] MEDS: Ondansetron 4 MG/2 ML Vial IV (06:03)
[2018-07-21 06:25] LABS: Bedside Glucose 196 mg/dL (70-110)
[2018-07-21 06:58] LABS: Absolute Lymphocyte Count 2.84 X10^3/ul (0.83-4.51); Absolute Neutrophil Count 4.1 X10^3/uL (2.0-7.7); Basophil# 0.02 X10^3/uL; Basophil% 0.3 % (0-1); Eosinophil# 0.08 X10^3/uL; Hematocrit 44.2 % (37-47); Hemoglobin 15.1 g/dl (12.0-15.0); Lymphocyte # 2.84 X10^3/ul (4.0); Lymphocyte % 36.7 % (19-41); Mean Corp Hgb Conc 34.2 g/gl (32-36); Mean Corpuscular Hgb 30.5 pg (27.0-32.0); Mean Corpuscular Volume 89.3 fL (81-99); Mean Platelet Vol. 10.5 fl (6.2-12.0); Monocyte# 0.67 X10^3/uL; Monocyte% 8.7 % (0-10); Neutrophil # 4.11 X10^3/uL (2.7-7.7); Platelet Count 146 K/mm3 (150-450); RBC Distribution Width CV 13.9 % (11.6-14.6); Red Blood Count 4.95 M/mm3 (4.2-5.4); White Blood Count 7.7 K/mm3 (4.4-11.0)
[2018-07-21 06:59] LABS: POSITIVE COUNT NO; POSITIVE DIFFERENTIAL NO; POSITIVE MORPHOLOGY NO
[2018-07-21 07:13] LABS: Cholesterol 115 mg/dL (200); High Density Lipoprotein 33 mg/dL; Triglycerides 388 mg/dL; Very Low Density Lipoprotein 78 mg/dL (5-40)
[2018-07-21 07:21] LABS: Prothrombin Time (Protime)PT. 13.1 SECONDS (11.7-14.9)
[2018-07-21 07:22] LABS: Partial Thromboplast Time 30.9 Seconds (24.1-36.2)
--- NOTE | 2018-07-21 09:02 | PCM.CONS.C ---
Reason for Consult Date of Consultation: 07/21/18 Reason for Consultation: Chest pain and back pain History of Present Illness: LAURA BOSS, is a 77 F who presents to the emergency room after experiencing back discomfort as well as some chest discomfort. She also says that she started having some palpitations. She was recently started on a diuretic by her primary care physician. Allergy was called to see her on account of the above. She is a lady with a history of hypertension, hyperlipidemia, obesity, paroxysmal atrial fibrillation and previous DVT with knee surgery. She is scheduled to undergo right total knee replacement in February 2018. She does have baseline shortness of breath but no dizziness or diaphoresis no near syncope or syncope. She says that her knee problems have not allowed her to be very mobile. She did have an echocardiogram performed in August 2017 which demonstrated an ejection fraction of 55%, a Holter monitor was performed due to palpitations and had occasional ectopic beats only, and a pharmacologic myocardial perfusion stress test was performed which demonstrated no evidence of ischemia. Her physical exam here today demonstrates clear lung golden regular rate and rhythm and no pedal edema. Her electrocardiogram demonstrated sinus rhythm with nonspecific lateral T wave inversions. Cardiac enzymes were noted to be normal. Past Medical History Allergies/Adverse Reactions: Allergies duloxetine [From Cymbalta] Allergy (Verified 07/20/18 20:24) Other hallucinations/delusions ramelteon [From Rozerem] Allergy (Verified 07/20/18 20:24) Other bupropion Adverse Reaction (Verified 07/20/18 20:24) Other UNKNOWN bupropion HCl [From Wellbutrin] Adverse Reaction (Verified 07/20/18 20:24) Other UNKNOWN dexfenfluramine HCl [From Redux] Adverse Reaction (Verified 07/20/18 20:24) Unknown hydrochlorothiazide Adverse Reaction (Verified 07/20/18 20:24) Other UNKNOWN ketorolac tromethamine [From Toradol] Adverse Reaction (Verified 07/20/18 20:24) Itching oxaprozin [From Daypro] Adverse Reaction (Verified 07/20/18 20:24) Other UNKNOWN Home Medications: Ambulatory Orders Medication Instructions Recorded ALPRAZolam [Xanax] 0.5 mg PO QHS 12/11/13 Diltiazem CD [Cardizem CD] 240 mg PO DAILY 12/11/13 Ondansetron [Zofran Odt] 4 mg PO Q6H PRN PRN #30 tab 06/12/17 Zolpidem Tartrate [Ambien Cr] 12.5 mg PO QHS PRN PRN 07/31/17 bumetanide 0.5 mg tablet 0.5 mg PO DAILY 04/03/18 irbesartan 300 mg tablet 300 mg PO QDAY 04/03/18 meloxicam 7.5 mg tablet 7.5 mg PO DAILY 04/03/18 oxycodone 5 mg tablet 7.5 mg PO BID PRN tab 04/03/18 pravastatin 20 mg tablet 20 mg PO DAILY 04/03/18 Atenolol 50 mg PO QDAY 07/21/18 Canagliflozin [Invokana] 300 mg PO 07/21/18 Codeine Phosphate/Guaifenesin 5 ml PO PRN PRN 07/21/18 [Codeine-Guaifen 10-100 mg/5 ml] Nystatin Powder [Mycostatin Powder] 1 applic TOPICAL TID 07/21/18 Triamcinolone 0.025% Cream 1 applic TOPICAL TID 07/21/18 [Kenalog] metFORMIN (XR) [Glucophage Xr] 500 mg PO BID 07/21/18 Past Medical History (Chronic Problems): Chronic Problems (Last Reviewed 07/21/18 @ 06:16 by Carmelo Burroughs MD) Rapid palpitations (Chronic) Essential (primary) hypertension (Chronic) Hyperlipidemia (Chronic) Surgical History: arthroscopy, knee - Right knee meniscal repair, cholecystectomy, - - 2014 had bowel resection, also had whipple procedure in [place] 2007-, tubal ligation, carpal tunnel in wrist, shoulder and hand surgery hysterectemy, bladder suspension, wall between vagina and colon. 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 Denies: Shortness of Breath, Orthopnea, PND, Peripheral Edema, Lightheadedness, Dizziness, Near Syncope, Syncope Respiratory: Denies: Cough, Sputum Production, Hemoptysis Gastrointestinal: Denies: Hematemesis, Hematochezia, Melena Genitourinary: Denies: Dysuria, Hematuria Muscoloskeletal: Reports: Back Pain Skin: Denies: Rash Neurological: Denies: Dizziness Psychiatric: Denies: Anxiety Endocrine: Denies: Unexplained Weight Loss Hematologic/ Lymphatic: Denies: Anemia Subjectve: Pleasant lady no apparent distress Objective: Vital Signs Temp Pulse Resp BP Pulse Ox 97.7 F L 63 18 141/73 H 93 07/21/18 05:45 07/21/18 07:10 07/21/18 05:45 07/21/18 05:45 07/21/18 07:25 Oxygen Flow Rate (L/min) 2 Oxygen Delivery Method Room Air Weight: 240 lb 15.444 oz Body Mass Index (BMI) 42.6 Finger Stick Blood Glucose 173 Intake and Output for Last 24 Hours 07/19/18 07/20/18 07/21/18 23:59 23:59 23:59 Intake Total 60 / 60 Balance 60 / 60 General: Awake, Alert, Oriented x 3 HEENT: PERRL, EOMI, Sclera Non Icteric Neck: Supple, Good ROM, No Lymph Node Enlargement Lungs: Clear to auscultation Cardiovascular: Regular Rhythm, Normal S1, Normal S2, No Murmurs, No Rubs, No Gallops Vascular: No Carotid Bruits, Normal Femoral Pulses, Normal Radial Pulses, Normal Dorsalis Pedal Pulse, Normal Posterior Tibial Pulses Abdomen: Bowel Sounds Present, Soft, Non Tender, No HSM, No Organomegaly Extremities: No Cyanosis, No Clubbing, No edema Musculoskeletal: No Erythema Skin: No Rashes Lymphatic: No Lymph Node Enlargement Neurological: No Focal Motor or Sensory Deficit Psych/Mental Status: Appropriate 07/20/18 20:50: WBC 10.7, RBC 4.80, Hgb 14.8, Hct 43.3, MCV 90.2, MCH 30.8, MCHC 34.2, RDW 14.0, RDW Differential 46.0 H, Plt Count 169, MPV 11.0, Immature Gran % (Auto) 0.400, Neut % (Auto) 65.6, Lymph % (Auto) 23.1, [place] % (Auto) 10.0, Eos % (Auto) 0.7, Baso % (Auto) 0.2, Absolute Neuts (auto) 7.0, Total Counted Not Reportable 07/20/18 20:50: Sodium 134 L, Potassium 4.9, Chloride 98, Carbon Dioxide 26.0, Anion Gap 10, BUN 26 H, Creatinine 1.57 H, Est GFR (MDRD) Af Amer 41 L, Est GFR (MDRD) Non-Af 34 L, BUN/Creatinine Ratio 16.6, Glucose 242 H, Calcium 10.0, Troponin I < 0.015 07/21/18 01:35: Troponin I < 0.015 07/21/18 04:58: Sodium 136, Potassium 4.0, Chloride 101, Carbon Dioxide 24.0, Anion Gap 11, BUN 26 H, Creatinine 1.07 H, Est GFR (MDRD) Af Amer 64, Est GFR (MDRD) Non-Af 53 L, BUN/Creatinine Ratio 24.3 H, Glucose 169 H, Calcium 9.7, Troponin I < 0.015 07/21/18 06:45: Troponin I < 0.015, Triglycerides 388 H, Cholesterol 115, LDL Cholesterol 4, VLDL Cholesterol 78 H, HDL Cholesterol 33 L 07/21/18 06:45: WBC 7.7, RBC 4.95, Hgb 15.1 H, Hct 44.2, MCV 89.3, MCH 30.5, MCHC 34.2, RDW 13.9, RDW Differential 45.0 H, Plt Count 146 L, MPV 10.5, Immature Gran % (Auto) 0.300, Neut % (Auto) 53.0, Lymph % (Auto) 36.7, [place] % (Auto) 8.7, Eos % (Auto) 1.0, Baso % (Auto) 0.3, Absolute Neuts (auto) 4.1, Total Counted Not Reportable 07/21/18 06:45: PT 13.1, INR 1.0, APTT 30.9 Rhythm: EKG: Normal sinus rhythm with lateral mild T wave inversions ECHO: Ejection fraction of 55% per echocardiogram from August 2017 Stress Test: Previous normal stress test from 2018 Assessment/Plan 1. Atypical chest pain Ms. Boss presents with atypical chest pain. She has some subtle EKG changes but normal cardiac troponin enzymes. My recommendation at this time would be for us to proceed with the previously ordered pharmacologic myocardial perfusion stress test. If the above is normal then I would recommend medical therapy. I do not think at this time that she has any evidence of plaque rupture or unstable angina. 2. Hypertension Her blood pressure appears to be under good control at this present time we will continue managing her as appropriate. 3. Hyperlipidemia He does have hyperlipidemia with elevated triglyceride level. Aggressive risk factor modification diet and continuation of her statins. We will discuss further with you after the results of the stress test are obtained.
--- NOTE | 2018-07-21 09:07 | CON.PCM_ITS ---
Reason for Consult Date of Consultation: 07/21/18 Reason for Consultation: Chest pain and back pain History of Present Illness: LAURA BOSS, is a 77 F who presents to the emergency room after experiencing back discomfort as well as some chest discomfort. She also says that she started having some palpitations. She was recently started on a diuretic by her primary care physician. Allergy was called to see her on account of the above. She is a lady with a history of hypertension, hyperlipidemia, obesity, paroxysmal atrial fibrillation and previous DVT with knee surgery. She is scheduled to undergo right total knee replacement in February 2018. She does have baseline shortness of breath but no dizziness or diaphoresis no near syncope or syncope. She says that her knee problems have not allowed her to be very mobile. She did have an echocardiogram performed in August 2017 which demonstrated an ejection fraction of 55%, a Holter monitor was performed due to palpitations and had occasional ectopic beats only, and a pharmacologic myocardial perfusion stress test was performed which demonstrated no evidence of ischemia. Her physical exam here today demonstrates clear lung golden regular rate and rhythm and no pedal edema. Her electrocardiogram demonstrated sinus rhythm with nonspecific lateral T wave inversions. Cardiac enzymes were noted to be normal. Past Medical History Allergies/Adverse Reactions: Allergies duloxetine [From Cymbalta] Allergy (Verified 07/20/18 20:24) Other hallucinations/delusions ramelteon [From Rozerem] Allergy (Verified 07/20/18 20:24) Other bupropion Adverse Reaction (Verified 07/20/18 20:24) Other UNKNOWN bupropion HCl [From Wellbutrin] Adverse Reaction (Verified 07/20/18 20:24) Other UNKNOWN dexfenfluramine HCl [From Redux] Adverse Reaction (Verified 07/20/18 20:24) Unknown hydrochlorothiazide Adverse Reaction (Verified 07/20/18 20:24) Other UNKNOWN ketorolac tromethamine [From Toradol] Adverse Reaction (Verified 07/20/18 20:24) Itching oxaprozin [From Daypro] Adverse Reaction (Verified 07/20/18 20:24) Other UNKNOWN Home Medications: Ambulatory Orders Medication Instructions Recorded ALPRAZolam [Xanax] 0.5 mg PO QHS 12/11/13 Diltiazem CD [Cardizem CD] 240 mg PO DAILY 12/11/13 Ondansetron [Zofran Odt] 4 mg PO Q6H PRN PRN #30 tab 06/12/17 Zolpidem Tartrate [Ambien Cr] 12.5 mg PO QHS PRN PRN 07/31/17 bumetanide 0.5 mg tablet 0.5 mg PO DAILY 04/03/18 irbesartan 300 mg tablet 300 mg PO QDAY 04/03/18 meloxicam 7.5 mg tablet 7.5 mg PO DAILY 04/03/18 oxycodone 5 mg tablet 7.5 mg PO BID PRN tab 04/03/18 pravastatin 20 mg tablet 20 mg PO DAILY 04/03/18 Atenolol 50 mg PO QDAY 07/21/18 Canagliflozin [Invokana] 300 mg PO 07/21/18 Codeine Phosphate/Guaifenesin 5 ml PO PRN PRN 07/21/18 [Codeine-Guaifen 10-100 mg/5 ml] Nystatin Powder [Mycostatin Powder] 1 applic TOPICAL TID 07/21/18 Triamcinolone 0.025% Cream 1 applic TOPICAL TID 07/21/18 [Kenalog] metFORMIN (XR) [Glucophage Xr] 500 mg PO BID 07/21/18 Past Medical History (Chronic Problems): Chronic Problems (Last Reviewed 07/21/18 @ 06:16 by Carmelo Burroughs MD) Rapid palpitations (Chronic) Essential (primary) hypertension (Chronic) Hyperlipidemia (Chronic) Surgical History: arthroscopy, knee - Right knee meniscal repair, cholecystect dharmesh, - - 2014 had bowel resection, also had whipple procedure in [place] 2007-, tubal ligation, carpal tunnel in wrist, shoulder and hand surgery hysterectemy, bladder suspension, wall between vagina and colon. 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 Denies: Shortness of Breath, Orthopnea, PND, Peripheral Edema, Lightheadedness, Dizziness, Near Syncope, Syncope Respiratory: Denies: Cough, Sputum Production, Hemoptysis Gastrointestinal: Denies: Hematemesis, Hematochezia, Melena Genitourinary: Denies: Dysuria, Hematuria Muscoloskeletal: Reports: Back Pain Skin: Denies: Rash Neurological: Denies: Dizziness Psychiatric: Denies: Anxiety Endocrine: Denies: Unexplained Weight Loss Hematologic/ Lymphatic: Denies: Anemia Subjectve: Pleasant lady no apparent distress Objective: Vital Signs Temp Pulse Resp BP Pulse Ox 97.7 F L 63 18 141/73 H 93 07/21/18 05:45 07/21/18 07:10 07/21/18 05:45 07/21/18 05:45 07/21/18 07:25 Oxygen Flow Rate (L/min) 2 Oxygen Delivery Method Room Air Weight: 240 lb 15.444 oz Body Mass Index (BMI) 42.6 Finger Stick Blood Glucose 173 Intake and Output for Last 24 Hours 07/19/18 07/20/18 07/21/18 23:59 23:59 23:59 Intake Total 60 / 60 Balance 60 / 60 General: Awake, Alert, Oriented x 3 HEENT: PERRL, EOMI, Sclera Non Icteric Neck: Supple, Good ROM, No Lymph Node Enlargement Lungs: Clear to auscultation Cardiovascular: Regular Rhythm, Normal S1, Normal S2, No Murmurs, No Rubs, No Gallops Vascular: No Carotid Bruits, Normal Femoral Pulses, Normal Radial Pulses, Normal Dorsalis Pedal Pulse, Normal Posterior Tibial Pulses Abdomen: Bowel Sounds Present, Soft, Non Tender, No HSM, No Organomegaly Extremities: No Cyanosis, No Clubbing, No edema Musculoskeletal: No Erythema Skin: No Rashes Lymphatic: No Lymph Node Enlargement Neurological: No Focal Motor or Sensory Deficit Psych/Mental Status: Appropriate 07/20/18 20:50: WBC 10.7, RBC 4.80, Hgb 14.8, Hct 43.3, MCV 90.2, MCH 30.8, MCHC 34.2, RDW 14.0, RDW Differential 46.0 H, Plt Count 169, MPV 11.0, Immature Gran % (Auto) 0.400, Neut % (Auto) 65.6, Lymph % (Auto) 23.1, [place] % (Auto) 10.0, Eos % (Auto) 0.7, Baso % (Auto) 0.2, Absolute Neuts (auto) 7.0, Total Counted Not Reportable 07/20/18 20:50: Sodium 134 L, Potassium 4.9, Chloride 98, Carbon Dioxide 26.0, Anion Gap 10, BUN 26 H, Creatinine 1.57 H, Est GFR (MDRD) Af Amer 41 L, Est GFR (MDRD) Non-Af 34 L, BUN/Creatinine Ratio 16.6, Glucose 242 H, Calcium 10.0, Troponin I < 0.015 07/21/18 01:35: Troponin I < 0.015 07/21/18 04:58: Sodium 136, Potassium 4.0, Chloride 101, Carbon Dioxide 24.0, Anion Gap 11, BUN 26 H, Creatinine 1.07 H, Est GFR (MDRD) Af Amer 64, Est GFR (MDRD) Non-Af 53 L, BUN/Creatinine Ratio 24.3 H, Glucose 169 H, Calcium 9.7, Troponin I < 0.015 07/21/18 06:45: Troponin I < 0.015, Triglycerides 388 H, Cholesterol 115, LDL Cholesterol 4, VLDL Cholesterol 78 H, HDL Cholesterol 33 L 07/21/18 06:45: WBC 7.7, RBC 4.95, Hgb 15.1 H, Hct 44.2, MCV 89.3, MCH 30.5, MCHC 34.2, RDW 13.9, RDW Differential 45.0 H, Plt Count 146 L, MPV 10.5, Immature Gran % (Auto) 0.300, Neut % (Auto) 53.0, Lymph % (Auto) 36.7, [place] % (Auto) 8.7, Eos % (Auto) 1.0, Baso % (Auto) 0.3, Absolute Neuts (auto) 4.1, Total Counted Not Reportable 07/21/18 06:45: PT 13.1, INR 1.0, APTT 30.9 Rhythm: EKG: Normal sinus rhythm with lateral mild T wave inversions ECHO: Ejection fraction of 55% per echocardiogram from August 2017 Stress Test: Previous normal stress test from 2018 Assessment/Plan 1. Atypical chest pain Ms. Boss presents with atypical chest pain. She has some subtle EKG changes but normal cardiac troponin enzymes. My recommendation at this time would be for us to proceed with the previously ordered pharmacologic myocardial perfusion stress test. If the above is normal then I would recommend medical therapy. I do not think at this time that she has any evidence of plaque rupture or unstable angina. 2. Hypertension * Her blood pressure appears to be under good control at this present time we will continue managing her as appropriate. * 3. Hyperlipidemia * He does have hyperlipidemia with elevated triglyceride level. Aggressive risk factor modification diet and continuation of her statins. * * We will discuss further with you after the results of the stress test are obtained.
[2018-07-21 09:30] LABS: BNP,B-Type NATRIURETIC PEPTIDE 134.4 pg/mL (0-100)
[2018-07-21 12:25] LABS: Bedside Glucose 168 mg/dL (70-110)
--- NOTE | 2018-07-21 13:14 | STRESSREP ---
Stress Test Report Pharmacologic myocardial perfusion stress test. 77-year-old lady with a history of chest pain. Medications aspirin Lipitor heparin Humalog. Stress protocol: Resting EKG demonstrates normal sinus rhythm with a rate of 60 bpm resting blood pressures 150/72 mmHg. 0.4 mg of regadenoson was infused per usual protocol followed by rapid intravenous saline flush injection continuous EKG monitoring was performed. The maximum heart rate attained was 89 bpm which was 61% of maximum predicted heart rate maximum workload was 1 metabolic equivalent. At rest there were nonspecific ST-T wave changes noted at peak infusion nonspecific ST-T wave changes were noted. The resting blood pressures 150/72 final blood pressure was 170/72. Myocardial perfusion protocol. 15.0 mCi of technetium 99m sestamibi was injected at rest. 0.4 mg of regadenoson was infused per usual protocol peak infusion 44.5 mCi of technetium 99m sestamibi was injected stress images were obtained stress and rest images were reconstructed in comparing the short axis vertical long horizontal long axis. Gated images were also obtained for next Perfusion SPECT analysis: Review of the stress images demonstrate normal uptake of tracer noted in all areas of myocardium. The resting images similarly demonstrate normal uptake of tracer noted in all the rest of the myocardium. No areas of reversibility are noted suggest ischemia no previous infarct is noted. Gated SPECT analysis: The gated ejection fraction is noted to be 84%. Conclusion: Normal pharmacologic myocardial perfusion stress test with no evidence of ischemia. Preserved ejection fraction.
--- NOTE | 2018-07-21 13:40 | DCINST_ITS ---
- Discharge Diagnoses Current Active Problems: Current Active and Chronic Problems (Last Reviewed 07/21/18 @ 06:16 by Carmelo Burroughs MD) Dysrhythmia (Acute) You will use the following diet at home:: Cardiac Your food should be the consistency of: Regular Your liquids should be the consistency of: Regular/Thin Discharge Activity: Return to Normal Activity Weight Bearing Status: Weight bearing as tolerated Call your doctor if you observe: Chest pain Instructions: What Is Angina?, ED Chest Pain NonCardiac Allergies/Adverse Reactions: Allergies duloxetine [From Cymbalta] Allergy (Verified 07/20/18 20:24) Other hallucinations/delusions ramelteon [From Rozerem] Allergy (Verified 07/20/18 20:24) Other bupropion Adverse Reaction (Verified 07/20/18 20:24) Other UNKNOWN bupropion HCl [From Wellbutrin] Adverse Reaction (Verified 07/20/18 20:24) Other UNKNOWN dexfenfluramine HCl [From Redux] Adverse Reaction (Verified 07/20/18 20:24) Unknown hydrochlorothiazide Adverse Reaction (Verified 07/20/18 20:24) Other UNKNOWN ketorolac tromethamine [From Toradol] Adverse Reaction (Verified 07/20/18 20:24) Itching oxaprozin [From Daypro] Adverse Reaction (Verified 07/20/18 20:24) Other UNKNOWN Medications to take at Discharge ALPRAZolam [Xanax] 0.5 mg PO QHS 12/11/13 Diltiazem CD [Cardizem CD] 240 mg PO DAILY 12/11/13 Ondansetron [Zofran Odt] 4 mg PO Q6H PRN PRN #30 tab 06/12/17 Zolpidem Tartrate [Ambien Cr] 12.5 mg PO QHS PRN PRN 07/31/17 bumetanide 0.5 mg tablet 0.5 mg PO DAILY 04/03/18 irbesartan 300 mg tablet 300 mg PO QDAY 04/03/18 oxycodone 5 mg tablet 7.5 mg PO BID PRN tab 04/03/18 Atenolol 50 mg PO QDAY 07/21/18 Atorvastatin Calcium [Lipitor] 40 mg PO QHS #30 tablet 07/21/18 Canagliflozin [Invokana] 300 mg PO 07/21/18 Codeine Phosphate/Guaifenesin [Codeine-Guaifen 10-100 mg/5 ml] 5 ml PO PRN PRN 07/21/18 Nystatin Powder [Mycostatin Powder] 1 applic TOPICAL TID 07/21/18 Triamcinolone 0.025% Cream [Kenalog] 1 applic TOPICAL TID 07/21/18 metFORMIN (XR) [Glucophage Xr] 500 mg PO BID 07/21/18 The following prescriptions were given: Atorvastatin Calcium [Lipitor] 40 mg PO QHS #30 tablet Primary Care Physician: Luanne Aquino MD [Primary Care Provider] - Please follow up with your Primary Care Physician in: one week Test Results: Test results from this visit will be discussed in further detail at your follow- up appointment, if applicable. Proposed Discharge Date: 07/21/18
--- NOTE | 2018-07-21 13:50 | CASEMGMT ---
Patient has a Healthcare POA and Healthcare LW. She is aware they are not on file at [facility]. Marilyn SCHULTZ MSW
--- NOTE | 2018-07-21 14:25 | DS.PCM_ITS ---
Discharge Date and Diagnosis - Problem List Patient Problems: Active and Suspected Problems (Last Reviewed 07/21/18 @ 06:16 by Carmelo Burroughs MD) Dysrhythmia (Acute) Date of Admission: 07/20/18 Date of Discharge: 07/21/18 - Primary Discharge Diagnosis Active and Suspected Problems (Last Reviewed 07/21/18 @ 06:16 by Carmelo Burroughs MD) bradycardia chest pain - Secondary Discharge Diagnosis Chronic Problems (Last Reviewed 07/21/18 @ 06:16 by Carmelo Burroughs MD) Rapid palpitations (Chronic) Essential (primary) hypertension (Chronic) Hyperlipidemia (Chronic) Hospital Course and Treatment Imaging Results: 07/21/18 05:55 Nuclear Stress Test - Chemical [NM] AM (NON MEDS) Operations: None Procedures: Stress test Summary of Care Provided: The patient is a 77 year old F with a past medical history as listed. She was admitted through the ED on 07/20/2018 with a complaint of feeling like her heart was slowing down and beating irregularly. Patient states she also had pain in her lower back which went up to her middle back in 4 she had been following Dr. Trent. She felt like she was having a heart attack and going to . She had a sister shortness of breath and feeling of pressure around her eyes which resolved. Patient did have a history of A. fib and also was found to have first-degree AV block in the ED. She was admitted on Saturday for chest pain to rule out ACS. Heart rate was noted to go as low as the 40s palpable rebound to the mid 60s. Patient had a stress test on 07/21/2018 which was normal. Cardiology was consulted and evaluated patient. Due to negative strep cardiology, patient was discharged home on 07/21/18 she is to continue her current dose of Cardizem is to follow-up with cardiology and her primary care doctor. Patient seen and examined prior to discharge. She had no complaints and felt well. Chest pain had resolved. Review of systems was otherwise negative. Labs and vitals reviewed. Home medications reviewed and reconciled. o/e Vital Signs Height 5 ft 3 in Weight: 240 lb 15.444 oz Weight in Pounds 241.0 lbs Pulse Ox 96 Temperature 98.1 F Pulse Rate 61 Respiratory Rate 16 Blood Pressure 137/96 Blood Pressure Position Sitting [] General: Alert, Oriented x3, Cooperative, - - Obese HEENT: Atraumatic, PERRLA, EOMI, Normocephalic Neck: Supple, No JVD, Negative Carotid Bruits Lungs: Clear to auscultation, Normal air movement Cardiovascular: Regular rate, No murmurs Abdomen: Bowel Sounds Present, Soft, Non Tender Extremities: No edema, Capillary Refill Less than 3 Seconds Skin: Excoriated - bilateral legs Musculoskeletal: No Tenderness to Palpation of Joints or Extremities Neurological: Cranial nerves II-XII grossly intact Psych/Mental Status: Normal Affect, anxious. Of note, patient's statin was increased to high intensity statin and she was put on atorvastatin 40 mg daily Benicar of elevated lipids and triglycerides. 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 Patient Problems: Active and Suspected Problems (Last Reviewed 07/21/18 @ 06:16 by Carmelo Burroughs MD) Dysrhythmia (Acute) - Physical Exam Vital Signs Temp Pulse Resp BP Pulse Ox 98.1 F 61 16 137/96 H 96 07/21/18 09:23 07/21/18 09:23 07/21/18 09:23 07/21/18 09:23 07/21/18 09:23 Oxygen Flow Rate (L/min) 2 Oxygen Delivery Method Room Air Weight: 240 lb 15.444 oz Body Mass Index (BMI) 42.6 Finger Stick Blood Glucose 173 Intake and Output for Last 24 Hours 07/19/18 07/20/18 07/21/18 23:59 23:59 23:59 Intake Total 300 / 300 Balance 300 / 300 Laboratory Tests Past 24 Hrs 07/20/18 07/20/18 07/21/18 20:50 20:50 01:35 WBC 10.7 RBC 4.80 Hgb 14.8 Hct 43.3 MCV 90.2 MCH 30.8 MCHC 34.2 RDW 14.0 RDW Differential 46.0 H Plt Count 169 MPV 11.0 Immature Gran % (Auto) 0.400 Neut % (Auto) 65.6 Lymph % (Auto) 23.1 [place] % (Auto) 10.0 Eos % (Auto) 0.7 Baso % (Auto) 0.2 Absolute Neuts (auto) 7.0 Absolute Lymphs (auto) 2.47 Total Counted Not Reportable PT INR APTT Sodium 134 L Potassium 4.9 Chloride 98 Carbon Dioxide 26.0 Anion Gap 10 BUN 26 H Creatinine 1.57 H Estim Creat Clear Calc 25.22 Est GFR (MDRD) Af Amer 41 L Est GFR (MDRD) Non-Af 34 L BUN/Creatinine Ratio 16.6 Glucose 242 H Calcium 10.0 Troponin I < 0.015 < 0.015 B-Natriuretic Peptide Triglycerides Cholesterol LDL Cholesterol VLDL Cholesterol HDL Cholesterol 07/21/18 07/21/18 07/21/18 04:58 06:45 06:45 WBC 7.7 RBC 4.95 Hgb 15.1 H Hct 44.2 MCV 89.3 MCH 30.5 MCHC 34.2 RDW 13.9 RDW Differential 45.0 H Plt Count 146 L MPV 10.5 Immature Gran % (Auto) 0.300 Neut % (Auto) 53.0 Lymph % (Auto) 36.7 [place] % (Auto) 8.7 Eos % (Auto) 1.0 Baso % (Auto) 0.3 Absolute Neuts (auto) 4.1 Absolute Lymphs (auto) 2.84 Total Counted Not Reportable PT INR APTT Sodium 136 Potassium 4.0 Chloride 101 Carbon Dioxide 24.0 Anion Gap 11 BUN 26 H Creatinine 1.07 H Estim Creat Clear Calc 37.00 Est GFR (MDRD) Af Amer 64 Est GFR (MDRD) Non-Af 53 L BUN/Creatinine Ratio 24.3 H Glucose 169 H Calcium 9.7 Troponin I < 0.015 < 0.015 B-Natriuretic Peptide Triglycerides 388 H Cholesterol 115 LDL Cholesterol 4 VLDL Cholesterol 78 H HDL Cholesterol 33 L 07/21/18 07/21/18 06:45 06:45 WBC RBC Hgb Hct MCV MCH MCHC RDW RDW Differential Plt Count MPV Immature Gran % (Auto) Neut % (Auto) Lymph % (Auto) [place] % (Auto) Eos % (Auto) Baso % (Auto) Absolute Neuts (auto) Absolute Lymphs (auto) Total Counted PT 13.1 INR 1.0 APTT 30.9 Sodium Potassium Chloride Carbon Dioxide Anion Gap BUN Creatinine Estim Creat Clear Calc Est GFR (MDRD) Af Amer Est GFR (MDRD) Non-Af BUN/Creatinine Ratio Glucose Calcium Troponin I B-Natriuretic Peptide 134.4 H Triglycerides Cholesterol LDL Cholesterol VLDL Cholesterol HDL Cholesterol POC Glucose 07/21/18 07/21/18 07/21/18 12:15 06:11 03:04 POC Glucose 168 H 196 H 174 H Discharge Diet: Low fat/ Low Cholesterol Discharge Activity: Return to Normal Activity Weight Bearing Status: Weight bearing as tolerated Call your doctor if you observe: Chest pain Home Medications: Medications to take at Discharge ALPRAZolam [Xanax] 0.5 mg PO QHS 12/11/13 Diltiazem CD [Cardizem CD] 240 mg PO DAILY 12/11/13 Ondansetron [Zofran Odt] 4 mg PO Q6H PRN PRN #30 tab 06/12/17 Zolpidem Tartrate [Ambien Cr] 12.5 mg PO QHS PRN PRN 07/31/17 bumetanide 0.5 mg tablet 0.5 mg PO DAILY 04/03/18 irbesartan 300 mg tablet 300 mg PO QDAY 04/03/18 oxycodone 5 mg tablet 7.5 mg PO BID PRN tab 04/03/18 Atenolol 50 mg PO QDAY 07/21/18 Atorvastatin Calcium [Lipitor] 40 mg PO QHS #30 tablet 07/21/18 Canagliflozin [Invokana] 300 mg PO 07/21/18 Codeine Phosphate/Guaifenesin [Codeine-Guaifen 10-100 mg/5 ml] 5 ml PO PRN PRN 07/21/18 Nystatin Powder [Mycostatin Powder] 1 applic TOPICAL TID 07/21/18 Triamcinolone 0.025% Cream [Kenalog] 1 applic TOPICAL TID 07/21/18 metFORMIN (XR) [Glucophage Xr] 500 mg PO BID 07/21/18 Following Prescrptions Were Given to Patient: Atorvastatin Calcium [Lipitor] 40 mg PO QHS #30 tablet Primary Care Physician: Luanne Aquino MD [Primary Care Provider] - Please follow up with your Primary Care Physician in: one week Please Follow Up With: Luanne Aquino MD Patient Instructions: What Is Angina?, ED Chest Pain NonCardiac Disposition: Home Minutes spent on discharge:: 40 Patient Condition:: Stable Medical Necessity - Tobacco Use Smoking Status: Never smoker Meaningful Use Info Meaningful Use Diagnoses (Choose all that apply): None applicable Code Visit Inpatient E&M: 64469 Disch Hosp
== END 2018-07-21 13:39 | disposition home or self-care (01) ==
LOC: ED 20:56 → PCU 07-21 01:00
PROVIDERS: Admitting Provider Hospitalist; Emergency Provider Emergency Medicine; Family Provider Internal Medicine; PCP Internal Medicine; Visit Provider Student in an Organized Health Care Education/Training Program
DX: R07.89 Other chest pain (principal); R06.02 Shortness of breath; M79.89 Other specified soft tissue disorders; R00.1 Bradycardia, unspecified; I44.0 Atrioventricular block, first degree; I48.0 Paroxysmal atrial fibrillation; E78.5 Hyperlipidemia, unspecified; E66.9 Obesity, unspecified; F41.9 Anxiety disorder, unspecified; E11.9 Type 2 diabetes mellitus without complications; Z68.41 Body mass index [BMI] 40.0-44.9, adult; Z71.3 Dietary counseling and surveillance; M54.5 Low back pain; M19.90 Unspecified osteoarthritis, unspecified site; M99.05 Segmental and somatic dysfunction of pelvic region; M99.04 Segmental and somatic dysfunction of sacral region; M99.02 Segmental and somatic dysfunction of thoracic region; Z79.899 Other long term (current) drug therapy; Z79.84 Long term (current) use of oral hypoglycemic drugs; Z86.718 Personal history of other venous thrombosis and embolism; G89.29 Other chronic pain; I10 Essential (primary) hypertension
CPT/HCPCS: 36415; 71045; 78452; 80048; 80061; 82962; 83880; 84484; 85025; 85610; 85730; 93005; 93017; 93306; 96374; 96375; 97162; 97166; 99218; 99284; A9500; Q9957; A4216; G0378; J2405; J2785

== ENCOUNTER 2018-07-30 17:10 | Emergency (ER) | payer MEDICARE, SELFPAY ==
[2018-07-30 12:53] VITALS: BMI 42.1
[2018-07-30 17:30] VITALS: BP 173/105; PULSE 90; RESP 18; TEMP 36.7; O2SAT 97; BMI 32.3
--- NOTE | 2018-07-30 17:50 | CM.ED ---
Social Work Referral from nursing for suicidal thoughts. Nursing reporting that patient came with a pink slip. Reviewed chart and met with patient in room. Patient friend Estela present upon this social workers arrival to the room. Patient agreeable to patient friend staying in room with patient while this medical social worker spoke with patient. Patient reporting to live alone and to have limited support from family. Patient reporting to have been at the doctors office today and to have stated that patient wants to be done with this. Patient defining this as life. Patient currently denies any current suicidal thoughts plans but also states to have had suicidal thoughts within the past month. Estela stating that patient did have a suicide attempt last Saturday. Patient denies Estela's statement and is now asking for Estela to leave the room. Estela is willing to leave the room. Patient denies any suicide attempts and plans. Patient reporting to have pain medication at home but to have that for patient's pain and that patient only takes a directed. Patient reporting to have contact with Estela and neighbor on a daily basis but to have limited support from family. Patient reporting that patient has not been the same. Since patient spouse , patient did not clarify when patient spouse passed but that it is been some time. Patient also reporting that patient [id number] completed suicide 2 years ago and that patient has not been able to get over this. Patient admitting to being depressed and to have tried an antidepressant but that the antidepressant did not help and caused patient to have hallucinations. Patient reporting a history of counseling services but to not want to have any follow up with counseling services at it was the same old thing over and over. Patient presenting as nervous and wanting to be able to return home. This medical social worker informing patient that it is up to the doctor on what the decision will be. Collaborating with Dr. Cline. Dr. Cline speaking with patient and agreeable to patient discharging to home with safety plan but wanting to speak with patient friend first. Will continue to follow. Amina CAM, MAR[place]
--- NOTE | 2018-07-30 18:21 | ED.RN ---
SOCIAL WORK CONSULT IMMEDIATELY UPON ARRIVAL. SW AND PHYSICIAN AGREES ON DC HOME WITH SAFETY PLAN. SUICIDAL PRECAUTIONS NOT IN PLACE. PT WILL BE DC HOME, NO SITTER NECESSARY.
--- NOTE | 2018-07-30 18:59 | ED.DCSUM_ITS ---
History of Present Illness Chief Complaint: Suicidal Detail of Chief Complaint: depression Limited: Coma Onset: Today Worsened by: Situational factors Associated Symptoms: Depressed Narrative: Patient states she has been depressed for the past 2 years since she lost 2 family members, her and her [id number] who hung herself. She has had trouble coping, she has been in counseling, but it did not work well for her. She does well with talking with her next-door neighbor who also had a loss, and they are close. She states she has no desire to see a counselor. Today she was at orthopedics regarding her knee, hoping to get good news because she knows she needs a knee replacement, and she needed to lose weight before they would do surgery, she was hoping they would tell her that they were going to operate. She told the nurse in casual conversation, according to the patient, if I cannot get the surgery, I might just go to sleep. However, the nurses pink slip that she wrote to get the patient here states that if she does not qualify for surgery she will kill herself. Patient denies remembering saying that. Later, more history obtained from her next-door neighbor/friend that she talks to often reveals that she had told her earlier in the week that she was considering overdosing on some pills that she had. 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 She is concerned about her. - Past Medical History (1) Osteoarthritis of right knee Status: Chronic (2) Essential (primary) hypertension Status: Chronic (3) Hyperlipidemia Status: Chronic (4) Paroxysmal atrial fibrillation Status: Chronic (5) History of DVT of lower extremity Status: Resolved Comment: S/P knee surgery Past Medical History - Allergies and Home Meds Allergies/Adverse Reactions: Allergies duloxetine [From Cymbalta] Allergy (Verified 07/30/18 18:18) Other hallucinations/delusions ramelteon [From Rozerem] Allergy (Verified 07/30/18 18:18) Other bupropion Adverse Reaction (Verified 07/30/18 18:18) Other UNKNOWN bupropion HCl [From Wellbutrin] Adverse Reaction (Verified 07/30/18 18:18) Other UNKNOWN dexfenfluramine HCl [From Redux] Adverse Reaction (Verified 07/30/18 18:18) Unknown hydrochlorothiazide Adverse Reaction (Verified 07/30/18 18:18) Other UNKNOWN ketorolac tromethamine [From Toradol] Adverse Reaction (Verified 07/30/18 18:18) Itching oxaprozin [From Daypro] Adverse Reaction (Verified 07/30/18 18:18) Other UNKNOWN Primary Care Physician: Luanne Aquino MD [Primary Care Provider] - Surgical History: arthroscopy, knee - Right knee meniscal repair, cholecystectomy, - - 2014 had bowel resection, also had whipple procedure in [place] 2007-, tubal ligation, carpal tunnel in wrist, shoulder and hand surgery hysterectemy, bladder suspension, wall between vagina and colon. Lives: Alone Smoking Status: Never smoker Alcohol: None - Family History Paternal Family History: Family History (Last Reviewed 07/21/18 @ 06:16 by Carmelo Burroughs MD) Mother Myocardial infarction Family History: Reports: - - afib Review of Systems General: Denies: Chills, Fever, Sweats Eyes: Denies: Visual changes - bilaterally, Diplopia ENT: Denies: Rhinorrhea, Sore throat Cardiovascular: Denies: Chest pain, Palpitations Respiratory: Denies: Dyspnea, Cough, Dyspnea on exertion Gastrointestinal: Denies: Abdominal pain, Nausea, Vomiting, Diarrhea, Melena, Hematochezia Genitourinary: Denies: Dysuria, Hematuria, Frequency Musculoskeletal: Reports: Extremity Pain - R knee. Denies: Back pain Skin: Denies: Rash, Wounds Neurological: Denies: Headache, Weakness, Numbness Psych: Reports: Depression, Suicidal thoughts. Denies: Suicidal ideations - pt denies at this time Physical Exam Vital Signs/Narrative: Vital Signs Temp Pulse Resp BP Pulse Ox 07/30/18 17:30 98.0 F 90 18 173/105 H 97 Inital Vital Signs reviewed: Yes General: Well nourished, Well developed, Obese Head: Normocephalic, Atraumatic Eyes: Perrl, EOMI ENT: Moist mucous membranes, No rhinorrhea Neck: Supple, Nontender Cardiovascular: Regular rate, Regular rhythm, No murmurs Respiratory: No distress, CTA bilaterally, Chest nontender Abdomen: Soft, Nontender, Nondistended, Normal bowel sounds Back: Nontender, Normal Inspection Extremities: - - painful ROM R knee; no excessive warmth/erythema; able to walk w/ her walker. Skin: Normal color, No rash Neurological: Alert, Oriented x3, Cranial nerves II-XII grossly intact, Normal Strength, Normal Sensation, Normal Gait - except antalgic Psych: Normal Speech Pattern, Logical sequential goal directed thoughts, No suicidal or homicidal ideation - denies at this time, Depressed. Negative for: Homicidal thoughts Diagnostic/Tx/Re-eval Laboratory Results 07/30/18 07/30/18 07/30/18 20:25 20:25 20:25 WBC 7.1 RBC 4.92 Hgb 14.8 Hct 42.7 MCV 86.8 MCH 30.1 MCHC 34.7 RDW 13.4 RDW Differential 41.9 Plt Count 158 MPV 10.3 Immature Gran % (Auto) 0.600 Neut % (Auto) 57.6 Lymph % (Auto) 33.1 [place] % (Auto) 7.4 Eos % (Auto) 1.0 Baso % (Auto) 0.3 Absolute Neuts (auto) 4.1 Absolute Lymphs (auto) 2.36 Total Counted Not Reportable Sodium 138 Potassium 3.7 Chloride 106 Carbon Dioxide 26.0 Anion Gap 6 BUN 15 Creatinine 0.66 Estim Creat Clear Calc 51.76 Est GFR (MDRD) Af Amer 111 Est GFR (MDRD) Non-Af 92 BUN/Creatinine Ratio 22.7 H Glucose 174 H Calcium 10.2 H Total Bilirubin 0.50 AST 17 ALT 26 Alkaline Phosphatase 91 Total Protein 7.1 Albumin 3.8 Globulin 3.3 Albumin/Globulin Ratio 1.2 Urine Color Urine Clarity Urine pH Ur Specific [place] Urine Protein Urine Glucose (UA) Urine Ketones Urine Occult Blood Urine Nitrite Urine Bilirubin Urine Urobilinogen Ur Leukocyte Esterase Urine RBC Urine WBC Ur Squamous Epith Cells Urine Bacteria Urine Mucus Urine Opiates Screen Urine Methadone Screen Ur Barbiturates Screen Ur Phencyclidine Scrn Ur Amphetamines Screen U Methamphetamin-MDMA U Benzodiazepines Scrn Urine Cocaine Screen U Cannabinoids Screen Ur Drug Screen Comment Ethyl Alcohol 3.0 07/30/18 07/30/18 21:15 21:15 WBC RBC Hgb Hct MCV MCH MCHC RDW RDW Differential Plt Count MPV Immature Gran % (Auto) Neut % (Auto) Lymph % (Auto) [place] % (Auto) Eos % (Auto) Baso % (Auto) Absolute Neuts (auto) Absolute Lymphs (auto) Total Counted Sodium Potassium Chloride Carbon Dioxide Anion Gap BUN Creatinine Estim Creat Clear Calc Est GFR (MDRD) Af Amer Est GFR (MDRD) Non-Af BUN/Creatinine Ratio Glucose Calcium Total Bilirubin AST ALT Alkaline Phosphatase Total Protein Albumin Globulin Albumin/Globulin Ratio Urine Color Yellow Urine Clarity Clear Urine pH 5.0 Ur Specific [place] 1.015 Urine Protein Negative Urine Glucose (UA) Normal Urine Ketones Negative Urine Occult Blood Negative Urine Nitrite Positive H Urine Bilirubin Negative Urine Urobilinogen Normal Ur Leukocyte Esterase Negative Urine RBC 0 SEEN Urine WBC 0 SEEN Ur Squamous Epith Cells 0 SEEN Urine Bacteria 0 SEEN Urine Mucus 0 SEEN Urine Opiates Screen NEGATIVE Urine Methadone Screen NEGATIVE Ur Barbiturates Screen NEGATIVE Ur Phencyclidine Scrn NEGATIVE Ur Amphetamines Screen NEGATIVE U Methamphetamin-MDMA NEGATIVE U Benzodiazepines Scrn POSITIVE H Urine Cocaine Screen NEGATIVE U Cannabinoids Screen NEGATIVE Ur Drug Screen Comment Ethyl Alcohol Medical work-up is negative. He did have some urinary retention which we resolved with a straight cath, patient states she has had that off and on before. There is no sign of urine infection; she tested positive for nitrite but the rest of her urinalysis is negative and there is a 0 white cells, 0 bacteria so infection is thought to be not present. Her toxicology shows benzos but she is prescribed those, it is otherwise negative. She is medically cleared. It seems she was pink slipped by crisis who saw her at the other facility already. We discussed with the warehouse production worker on now, patient and family really want to overturn all of this, however neither I nor the current warehouse production worker is comfortable with that given the pink slip that is currently written under the patient. She had an elevated blood pressure at 173/58, this was treated and improved. Accepted to [facility]. ED Disposition - Plan for ED Patient: Disposition: Psychiatric Hospital or Unit Diagnosis: Depression, Suicidal thoughts, Adjustment disorder Referrals: Luanne Aquino MD [Primary Care Provider] -
--- NOTE | 2018-07-30 19:11 | EKG12_ITS ---
Test Reason : PALPITATIONS Blood Pressure : / mmHG Vent. Rate : 056 BPM Atrial Rate : 056 BPM P-R Int : 178 ms QRS Dur : 084 ms QT Int : 388 ms P-R-T Axes : -05 007 -48 degrees QTc Int : 374 ms Sinus bradycardia Nonspecific ST and T wave abnormality Abnormal ECG Confirmed by DWIGHT KEE, ANNE ([id number]), assignment desk editor ANDREW IRENE ([id number]) on 08/01/2018 9:31:25 AM Referred By: OLIVIA Confirmed By:ANNE QUINTANILLA MD
--- NOTE | 2018-07-30 19:30 | CM.ED ---
Social Work Dr. Cline and this social worker aide speaking with patient friend, Estela. Estela reporting to be concerned about patient returning to home and reporting that patient has a stash of pills and also has a concealed carry license. With this new information Dr. Cline now wanting patient to be seen by crisis and have pink slip reinstated. This social worker aide speaking with crisis, crisis reporting to have already completed an assessment at the doctors office and to now be able to begin process of placement. Crisis to manage case. Amina Falcon MSW, [place]
[2018-07-30 20:21] VITALS: BP 167/70; PULSE 66; RESP 18; TEMP 36.6; O2SAT 98
[2018-07-30 20:44] LABS: Absolute Lymphocyte Count 2.36 X10^3/ul (0.83-4.51); Absolute Neutrophil Count 4.1 X10^3/uL (2.0-7.7); Basophil# 0.02 X10^3/uL; Basophil% 0.3 % (0-1); Eosinophil# 0.07 X10^3/uL; Hematocrit 42.7 % (37-47); Hemoglobin 14.8 g/dl (12.0-15.0); Lymphocyte # 2.36 X10^3/ul (4.0); Lymphocyte % 33.1 % (19-41); Mean Corp Hgb Conc 34.7 g/gl (32-36); Mean Corpuscular Hgb 30.1 pg (27.0-32.0); Mean Corpuscular Volume 86.8 fL (81-99); Mean Platelet Vol. 10.3 fl (6.2-12.0); Monocyte# 0.53 X10^3/uL; Monocyte% 7.4 % (0-10); Neutrophil % 57.6 % (47-70); Platelet Count 158 K/mm3 (150-450); RBC Distribution Width CV 13.4 % (11.6-14.6); RBC Distribution Width SD 41.9 fl (35.1-43.9); Red Blood Count 4.92 M/mm3 (4.2-5.4); White Blood Count 7.1 K/mm3 (4.4-11.0)
[2018-07-30 20:53] LABS: POSITIVE COUNT NO; POSITIVE DIFFERENTIAL NO; POSITIVE MORPHOLOGY NO
[2018-07-30 20:58] LABS: ALB/GLOB Ratio 1.2 RATIO (0.9-2.4); AST(SGOT) 17 U/L (15-37); Alanine Aminotransfer ALT/SGPT 26 U/L (13-56); Albumin, Serum 3.8 g/dL (3.2-5.0); Alkaline Phosphatase 91 U/L (45-117); Anion Gap 6 (5-15); BUN 15 mg/dL (7-18); BUN/Creat Ratio 22.7 RATIO (10-20); Calcium,Total 10.2 mg/dL (8.5-10.1); Chloride 106 mmol/L (98-107); Creatinine, Serum 0.66 mg/dL (0.55-1.02); EST Glomerular Filtration Rate 92 mL/min (>60); Est Glom Filt Rate - Afr Amer 111 mL/min (>60); Estimated Creatinine Clearance 51.76 ml/min; Globulin 3.3 g/dL (2.2-4.2); Glucose 174 mg/dL (74-106); Potassium 3.7 mmol/L (3.5-5.1); Protein, Total 7.1 g/dL (6.4-8.2); Sodium Level 138 mmol/L (136-145)
[2018-07-30 21:06] VITALS: BP 183/72; PULSE 56; RESP 13; O2SAT 99
[2018-07-30 21:20] LABS: Bacteria 0 SEEN /hpf (None Seen); Mucous, Urine 0 SEEN /hpf (<or=2+); Red Blood Cells-Urine 0 SEEN /hpf (0-5); Squamous Epithelial Cells - UA 0 SEEN /hpf (5-10); White Blood Cells 0 SEEN /hpf (0-5)
--- NOTE | 2018-07-30 21:21 | ED.RN ---
PATIENT C/O HEART SKIPPING BEATS PATIENT PUT ON THE MONITOR. DR. BAKER MADE AWARE. EKG ORDERED. SINUS TOMASA NOTED ON MONITOR. PATIENT DID HAVE A RUN OF PVC WHILE LAYING FLAT FOR STRAIGHT CATH. PATIENT BLADDER SCANNED FOR OVER 863 PRIOR TO STRAIGHT CATH.
[2018-07-30 21:27] LABS: Color, Urine Yellow (Yellow); Glucose, Dipstick Normal (Normal); Ketone-Dipstick Negative (Negative); Leukocyte Esterase-Dipstick Negative /ul (Negative); Nitrite-Dipstick Positive (Negative); Occult Blood-Urine Negative /ul (Negative); Protein-Dipstick Negative (Negative); Specific Gravity, Urine 1.015 (1.002-1.030); Urine Bilirubin Dipstick Negative (Negative); Urine Clarity Clear (Clear); Urine Urobilinogen Normal (Normal)
--- NOTE | 2018-07-30 21:27 | ED.RN ---
PATIENT HAD 800 CC'S OUT OF HER STRAIGHTT CATH IN YELLOW URINE.
[2018-07-30] MEDS: oxyCODONE 5 MG Tablet PO (21:36)
[2018-07-30 21:37] VITALS: BP 188/82; PULSE 60; RESP 13; O2SAT 98
--- NOTE | 2018-07-30 21:40 | ED.RN ---
DR. GOMEZ MADE AWARE OF PATIENT'S RUN OF PVC'S ON THE MONITOR. A STRIP WAS PRINTED FOR HIS TO SEE. HE SAID OK TO TAKE HER OFF THE MONITOR AT THIS TIME.
[2018-07-30 21:54] LABS: Amphetamine Urine VISTA NEGATIVE (<1000 ng/mL); Barbiturate Urine VISTA NEGATIVE (< 200 ng/mL); Benzodiazepine Urine VISTA POSITIVE (< 200 ng/mL); Cocaine Urine VISTA NEGATIVE (< 300 ng/mL); Ecstacy Urine VISTA NEGATIVE (< 500 ng/mL); Methadone Urine VISTA NEGATIVE (< 300 ng/mL); PCP Urine VISTA NEGATIVE (< 25 ng/mL); THC Urine VISTA NEGATIVE (< 50 ng/mL); Vista UDS pH Range 5
[2018-07-30 23:32] VITALS: BP 173/58; PULSE 56; RESP 18; O2SAT 97
--- NOTE | 2018-07-31 00:02 | ED.RN ---
[facility] TRANSPORTING THIS PT AT 0730.
[2018-07-31] MEDS: oxyCODONE 5 MG Tablet PO ×2 (00:22→05:18)
[2018-07-31] MEDS: cloNIDine HCl 0.1 MG Tablet 0.2 MG PO (00:22)
[2018-07-31] MEDS: Zolpidem Tartrate 5 MG Tablet PO (00:22)
[2018-07-31] MEDS: metFORMIN (XR) 500 MG Tablet PO (01:04)
[2018-07-31 01:05] VITALS: RESP 18
--- NOTE | 2018-07-31 01:39 | ED.RN ---
FAWAD FROM CRISIS IS HERE TO TALK TO THIS PT. PT ACCEPTED AT [facility]. [facility] ETA [id number]
[2018-07-31 02:41] VITALS: BP 128/73; PULSE 68; RESP 18; O2SAT 95
[2018-07-31 05:13] VITALS: BP 150/89; PULSE 63; RESP 18; O2SAT 98
[2018-07-31] MEDS: ALPRAZolam 0.5 MG Tablet PO (08:02)
[2018-07-31 08:15] VITALS: BP 193/78; PULSE 68; O2SAT 98
== END 2018-07-31 08:20 ==
PROVIDERS: Emergency Medicine; Emergency Provider Emergency Medicine; Family Provider Internal Medicine; PCP Internal Medicine
DX: F43.21 Adjustment disorder with depressed mood (principal); R45.851 Suicidal ideations; Z86.718 Personal history of other venous thrombosis and embolism; I10 Essential (primary) hypertension; E78.5 Hyperlipidemia, unspecified; I48.0 Paroxysmal atrial fibrillation; Z60.2 Problems related to living alone
CPT/HCPCS: 80053; 80307; 80320; 81001; 85025; 93005; 99285; P9612; G0480

== ENCOUNTER → 2018-12-19 15:40 | Outpatient (CLI) | payer MEDICARE, SELFPAY ==
[2018-12-19 16:50] LABS: Absolute Lymphocyte Count 2.15 X10^3/uL (0.83-4.51); Absolute Neutrophil Count 4.3 X10^3/uL (2.0-7.7); Basophil# 0.03 X10^3/uL; Basophil% 0.4 % (0-1); Eosinophil# 0.03 X10^3/uL; Eosinophils% 0.4 % (0-5); Hematocrit 48.5 % (37-47); Hemoglobin 15.8 g/dL (12.0-15.0); Lymphocyte # 2.15 X10^3/ul (4.0); Lymphocyte % 30.3 % (19-41); Mean Corp Hgb Conc 32.6 g/dL (32-36); Mean Corpuscular Volume 92.2 fL (81-99); Mean Platelet Vol. 10.8 fl (6.2-12.0); Monocyte# 0.47 X10^3/uL; Monocyte% 6.6 % (0-10); NRBC Flagged by Analyzer 0 % (0-5); Neutrophil # 4.32 X10^3/uL (2.7-7.7); Neutrophil % 60.9 % (47-70); Platelet Count 124 K/mm3 (150-450); RBC Distribution Width CV 13.3 % (11.6-14.6); RBC Distribution Width SD 45.8 fl (35.1-43.9); Red Blood Count 5.26 M/mm3 (4.2-5.4); White Blood Count 7.1 K/mm3 (4.4-11.0)
[2018-12-19 17:16] LABS: Anion Gap 10 (5-15); BUN 16 mg/dL (7-18); BUN/Creat Ratio 21.2 RATIO (10-20); Chloride 104 mmol/L (98-107); Creatinine, Serum 0.75 mg/dL (0.55-1.02); EST Glomerular Filtration Rate 79 mL/min (>60); Est Glom Filt Rate - Afr Amer 96 mL/min (>60); Glucose 212 mg/dL (74-106); Magnesium 2.1 mg/dL (1.6-2.6); Potassium 4.5 mmol/L (3.5-5.1); Sodium Level 139 mmol/L (136-145); Thyroid Stim Hormone (TSH) 0.83 uIU/mL (0.358-3.74)
== END ==
PROVIDERS: Family Provider Internal Medicine; PCP Internal Medicine; Referring Provider Internal Medicine Cardiovascular Disease; Visit Provider Internal Medicine Cardiovascular Disease
DX: R00.2 Palpitations (principal)
CPT/HCPCS: 36415; 80048; 83735; 84443; 85025

== ENCOUNTER 2019-01-27 10:13 | Emergency (ER) | payer MEDICARE, SELFPAY ==
[2019-01-27 10:15] VITALS: BP 164/84; PULSE 90; RESP 16; TEMP 36.4; O2SAT 94; BMI 41.1
--- NOTE | 2019-01-27 10:41 | CT_ITS ---
STUDY: CT ABDOMEN AND PELVIS WITH CONTRAST REASON FOR EXAM: Female, 78 years old. Abdominal pain. History of bowel obstruction. RADIATION DOSAGE (If Supplied By Facility): CTDIvol = ( 18.16 ) mGy, DLP = ( 1047.95 ) mGycm TECHNIQUE: Transaxial images were obtained from the dome of the diaphragm to the symphysis pubis without oral contrast. 100CC ISOVUE 370 was administered. Sagittal and coronal images were reconstructed. Individualized dose optimization techniques were used for this CT. COMPARISON: Comparison is made with prior study dated June 19, 2017. FINDINGS: Minimal increased markings at the lung bases suggesting scarring and/or atelectasis. The visualized portions of the heart are within normal limits. There is decreased attenuation of the liver consistent with steatosis. There are surgical clips in the gallbladder fossa consistent with a prior cholecystectomy. Normal spleen. Normal pancreas. Normal bilateral adrenal glands. Normal right kidney. Normal left kidney. Is evidence of prior partial gastric resection and jejunostomy. Inflammatory changes are seen in the mesenteric fat in the region of the stomach and the duodenum. There is also evidence of a increased markings in the mesenteric fat at the level of the root of the mesentery with small lymph nodes. Anastomosis is seen in the left mid abdomen at the level of the jejunal loops. There are multiple colonic diverticula consistent with diverticulosis. Sutures are seen at the level of rectosigmoid junction. There is non-visualization of the appendix. There is diffuse atherosclerotic calcification of the abdominal aorta, without a demonstrated aneurysm. Normal inferior vena cava. There is borderline retroperitoneal lymphadenopathy with enlarged nodes no greater than 10mm in the short axis diameter. Distended urinary bladder. There is absence of the uterus consistent with a prior hysterectomy. Normal abdominal wall. There are diffuse degenerative changes of the visualized lumbar spine. CT/Abdomen/Pelvis WITH Contrast IMPRESSION: Post surgical changes are seen in the mesentery as well as in the region of the mesentery in the epigastric region. Inflammatory changes should be ruled out. The patient is status post partial gastrectomy and there is gastric jejunostomy. Electronically Signed: Uvaldo Biswas, at 13:45 EST , Service support ,
--- NOTE | 2019-01-27 10:41 | EKG12_ITS ---
Test Reason : ABNL PAIN Blood Pressure : / mmHG Vent. Rate : 074 BPM Atrial Rate : 074 BPM P-R Int : 174 ms QRS Dur : 086 ms QT Int : 384 ms P-R-T Axes : 054 -13 035 degrees QTc Int : 426 ms Normal sinus rhythm Possible Left atrial enlargement Nonspecific T wave abnormality Abnormal ECG Confirmed by LOU KEE, SAMI ([id number]), map editor JIMMY HART ([id number]) on 01/28/2019 11:24:00 AM Referred By: LUZ MARINA Confirmed By:SAMI BLAKE MD
--- NOTE | 2019-01-27 10:42 | RAD_ITS ---
STUDY: X-RAY CHEST REASON FOR EXAM: Female, 78 years old. Chest pain. TECHNIQUE: Single AP portable view of the chest. COMPARISON: Comparison is made with prior study dated July 20, 2018. FINDINGS: The lungs are clear and expanded. There is no demonstrated pleural abnormality. Normal size heart. Normal mediastinum and deondre. Normal visualized pulmonary arteries. There is atherosclerotic tortuosity of the aortic arch and descending thoracic aorta. There are diffuse degenerative changes of the visualized thoracic spine. Findings suggestive of calcific tendinitis involving the left shoulder. There is no demonstrated abnormality of the visualized soft tissue structures of the upper abdomen. RAD/Chest 1 View (Portable) IMPRESSION: Normal x-ray examination of the chest. Findings suggestive of calcific tendinitis involving the left shoulder. Electronically Signed: Uvaldo Biswas, at 11:10 EST , Service support ,
--- NOTE | 2019-01-27 10:47 | ED.DCSUM_ITS ---
History of Present Illness Chief Complaint: Abd Pain Informant: Patient - Abdominal Pain/Flank Pain Onset: Days Context: Gradual Onset Timing: Continuous Quality: Sharp Location: Epigastric - Nausea/Vomiting/Emesis GI Symptom: Nausea - Diarrhea/Melena/Hematochezia GI Symptom: Negative for: Diarrhea, Melena, Hematochezia Narrative: Patient is a 78-year-old female with history of cholecystectomy, small bowel obstructions, of her sigmoid colon and pancreatic issuespresenting with constipation, nausea and abdominal pain. Patient states her symptoms started on , 5 days ago. She states she had some coughing and chest tightness and and then her epigastric area started hurting. States the pain is diffuse in her epigastric area. She has associated nausea and constipation. She states she has been able to eat anything because of her symptoms. She had one very small bowel movement on Saturday, 3 days ago but none since. Patient states she is working with Dr. Garcia and told that she might need surgery for the stomach issues. She states this feels like her prior small bowel obstructions. She denies any fever or chills. She states her cough has been improving. She denies any urinary symptoms. She denies any other complaints at this time. Past Medical History - Allergies and Home Meds Allergies/Adverse Reactions: Allergies duloxetine [From Cymbalta] Allergy (Verified 01/27/19 10:14) Other hallucinations/delusions ramelteon [From Rozerem] Allergy (Verified 01/27/19 10:14) Other bupropion Adverse Reaction (Verified 01/27/19 10:14) Other UNKNOWN bupropion HCl [From Wellbutrin] Adverse Reaction (Verified 01/27/19 10:14) Other UNKNOWN dexfenfluramine HCl [From Redux] Adverse Reaction (Verified 01/27/19 10:14) Unknown hydrochlorothiazide Adverse Reaction (Verified 01/27/19 10:14) Other UNKNOWN ketorolac tromethamine [From Toradol] Adverse Reaction (Verified 01/27/19 10:14) Itching oxaprozin [From Daypro] Adverse Reaction (Verified 01/27/19 10:14) Other UNKNOWN Primary Care Physician: Luanne Aquino MD [Primary Care Provider] - Past Medical History: - - Chronic pain, hypertension, diabetes mellitus, DVT, history of small bowel obstruction Surgical History: arthroscopy, knee - Right knee meniscal repair, cholecystectomy, - - 2014 had bowel resection, also had whipple procedure in [place] 2007-, tubal ligation, carpal tunnel in wrist, shoulder and hand surgery hysterectemy, bladder suspension, wall between vagina and colon. Smoking Status: Never smoker - Family History Paternal Family History: Family History (Last Reviewed 07/21/18 @ 06:16 by Carmelo Burroughs MD) Mother Myocardial infarction Family History: Reports: - - afib Review of Systems General: Reports: Malaise. Denies: Chills, Fever, Sweats Eyes: Denies: Visual changes - bilaterally, Diplopia ENT: Denies: Rhinorrhea, Sore throat Cardiovascular: Denies: Chest pain, Palpitations Respiratory: Denies: Dyspnea, Cough, Dyspnea on exertion Gastrointestinal: Reports: Abdominal pain - Epigastric, Nausea, Constipation. Denies: Vomiting, Diarrhea, Melena, Hematochezia Genitourinary: Denies: Dysuria, Hematuria, Frequency Musculoskeletal: Reports: Myalgias. Denies: Back pain, Extremity Pain Skin: Denies: Rash, Wounds Neurological: Denies: Headache, Weakness, Numbness Physical Exam Vital Signs/Narrative: Vital Signs Temp Pulse Resp BP Pulse Ox 01/27/19 10:15 97.6 F L 90 16 164/84 H 94 Inital Vital Signs reviewed: Yes General: Well nourished, Well developed, No Acute Distress Head: Normocephalic, Atraumatic Eyes: Perrl, EOMI ENT: Moist mucous membranes, No rhinorrhea Neck: Supple, Nontender Cardiovascular: Regular rate, Regular rhythm, No murmurs Respiratory: No distress, CTA bilaterally, Chest nontender Abdomen: Soft, Nondistended, Normal bowel sounds, Tender - epigastric. Negative for: Guarding, Rebound tenderness Back: Nontender, Normal Inspection. Negative for: CVA tenderness Extremities: Nontender, No edema Skin: Normal color, No rash Neurological: Alert, Oriented x3, Cranial nerves II-XII grossly intact, Normal Strength, Normal Sensation Psychological: Normal affect, Normal Mood Diagnostic/Tx/Re-eval Clinical Impression(s) from Imaging Studies Abdomen/Pelvis CT 01/27/19 10:41 IMPRESSION: Post surgical changes are seen in the mesentery as well as in the region of the mesentery in the epigastric region. Inflammatory changes should be ruled out. The patient is status post partial gastrectomy and there is gastric jejunostomy. Electronically Signed: Uvaldo Biswas, at 13:45 EST , Service support , Chest X-Ray 01/27/19 10:42 IMPRESSION: Normal x-ray examination of the chest. Findings suggestive of calcific tendinitis involving the left shoulder. Electronically Signed: Uvaldo Biswas, at 11:10 EST , Service support , Laboratory Data 01/27/19 01/27/19 01/27/19 11:03 11:03 14:50 WBC 10.1 RBC 5.71 H Hgb 17.3 H Hct 51.4 H MCV 90.0 MCH 30.3 MCHC 33.7 RDW Std Deviation 43.1 RDW Coeff of Viviane 13.2 Plt Count 166 MPV 10.0 Immature Gran % (Auto) 0.800 Neut % (Auto) 72.6 H Lymph % (Auto) 19.4 [place] % (Auto) 6.3 Eos % (Auto) 0.4 Baso % (Auto) 0.5 Absolute Neuts (auto) 7.4 Absolute Lymphs (auto) 1.96 Nucleated RBC % 0 Sodium 136 Potassium 3.8 Chloride 105 Carbon Dioxide 23.0 Anion Gap 8 BUN 9 Creatinine 0.70 Estim Creat Clear Calc 37.26 Est GFR (MDRD) Af Amer 104 Est GFR (MDRD) Non-Af 86 BUN/Creatinine Ratio 12.8 Glucose 251 H Calcium 9.8 Total Bilirubin 0.80 AST 10 L ALT 20 Alkaline Phosphatase 100 Troponin I < 0.015 Total Protein 7.1 Albumin 3.6 Globulin 3.5 Albumin/Globulin Ratio 1.0 Lipase 66 L Urine Color Yellow Urine Clarity Clear Urine pH 5.0 Ur Specific [place] 1.015 Urine Protein 15 H Urine Glucose (UA) 1000 H Urine Ketones 150 H Urine Occult Blood Negative Urine Nitrite Positive H Urine Bilirubin Negative Urine Urobilinogen Normal Ur Leukocyte Esterase 25 H Urine RBC 0 SEEN Urine WBC 0-5 SEEN Ur Squamous Epith Cells 0-5 SEEN Urine Bacteria 2+ Urine Mucus 0 SEEN - Rhythm Strip Rhythm Strip: Sinus Rhythm Rate: 74 Ectopy: None - EKG Initial EKG Interpretation: Sinus Rhythm, - - Sinus rhythm at a rate of 74 Normal intervals Left axis deviation Nonspecific T wave changes - Medical Decision Making Patient is evaluated for abdominal pain and nausea. She is also been constipation. She has a significant intra-abdominal surgical history but also recently ran out of her home pain medication. Patient has appointment to see her PCP in 2 days for med refills and evaluation. Patient is mildly hemoconcentrated. Her kidney function is normal. While she is hyperglycemic she has normal anion gap. Patient does not have a leukocytosis or other findings of the infection. She is mildly tender in epigastric region on exam does not have a surgical abdomen. Urinalysis does show nitrates and 2+ bacteria. She does not have any urinary symptoms was possible some of her intra-abdominal discomfort might be from a UTI. Urine culture sent and she is given first dose of Keflex in the emergency room. Patient is significant improvement of her symptoms with IV Zofran, fluids and morphine. She only requires 1 dose of IV pain medication. CT of the abdomen pelvis shows mesenteric inflammatory changes in the epigastric region. She not have an obstruction or other acute surgical abnormalities on the CT. Discussed with her personal surgeon, Dr. Garcia, who recommends trialing a GI cocktail as he is findings can be seen with gastric ulcer. This is done but patient does not have any improvement of her symptoms. Dr. Garcia then recommended that I call the on-call doctor as he would not be able to follow-up with her. Spoke with Dr. Camp, who was less concerned for an also or based on the above findings and more concerning for adenitis. He do not feel like an emergent scop e would be indicated. He was agreeable starting the patient empirically on a PPI. Attempted to contact patient's PCP to discuss findings today. Spoke with the on-call doctor,Dr. Brooks, who was aware of my diagnosis and concerns. I also discussed giving her a short course of her regular Percocet until she could be seen on . I did verify this with an [facility] report. He was agreeable with this. Patient is counseled on signs and symptoms requiring return to the emergency room. Patient verbalizes agreement and understand this plan. Patient discharged home in stable and improved condition. ED Disposition - Plan for ED Patient: Disposition: Home or Assisted Living Diagnosis: Abdominal pain, Dehydration Instructions: ABDOMINAL PAIN, Unknown Cause, (Female), Bladder Infection, Female (Adult) Prescriptions: Cephalexin [Keflex] 500 mg PO Q12 #14 cap Prescription Printed Omeprazole 40 mg PO DAILY #14 capsule.dr Prescription Printed Oxycodone HCl/Acetaminophen [Percocet 7.5-325 mg Tablet] 1 tab PO BID PRN PRN #4 tab PRN Reason: Pain Prescription Printed Ondansetron [Zofran Odt] 4 mg PO Q8H PRN PRN #10 tab PRN Reason: Nausea Prescription Printed Referrals: Luanne Aquino MD [Primary Care Provider] - Additional Instructions: It is very important that you follow-up on with your doctor. Your urine shows signs of an infection. The exact cause of your abdominal pain is not clear. It might be inflammation of the stomach from acid/gastritis/an ulcer or viral infection. Make sure you drink plenty of fluids and use the nausea medicine to prevent any further dehydration. Return to the emergency room if you have any worsening symptoms.
[2019-01-27 11:09] LABS: Absolute Lymphocyte Count 1.96 X10^3/uL (0.83-4.51); Absolute Neutrophil Count 7.4 X10^3/uL (2.0-7.7); Basophil# 0.05 X10^3/uL; Basophil% 0.5 % (0-1); Eosinophil# 0.04 X10^3/uL; Eosinophils% 0.4 % (0-5); Hematocrit 51.4 % (37-47); Hemoglobin 17.3 g/dL (12.0-15.0); Lymphocyte # 1.96 X10^3/ul (4.0); Lymphocyte % 19.4 % (19-41); Mean Corp Hgb Conc 33.7 g/dL (32-36); Mean Corpuscular Hgb 30.3 pg (27.0-32.0); Monocyte# 0.64 X10^3/uL; Monocyte% 6.3 % (0-10); NRBC Flagged by Analyzer 0 % (0-5); Neutrophil # 7.35 X10^3/uL (2.7-7.7); Neutrophil % 72.6 % (47-70); Platelet Count 166 K/mm3 (150-450); RBC Distribution Width CV 13.2 % (11.6-14.6); RBC Distribution Width SD 43.1 fl (35.1-43.9); Red Blood Count 5.71 M/mm3 (4.2-5.4); White Blood Count 10.1 K/mm3 (4.4-11.0)
[2019-01-27] MEDS: Morphine 4 MG/ML Syringe IV (11:10)
[2019-01-27] MEDS: Ondansetron 4 MG/2 ML Vial IV (11:11)
[2019-01-27] MEDS: 0.9% Normal Saline 1,000 ML 1000 ML IV (11:11)
[2019-01-27 11:33] LABS: AST(SGOT) 10 U/L (15-37); Alanine Aminotransfer ALT/SGPT 20 U/L (13-56); Albumin, Serum 3.6 g/dL (3.2-5.0); Alkaline Phosphatase 100 U/L (45-117); Anion Gap 8 (5-15); BUN 9 mg/dL (7-18); BUN/Creat Ratio 12.8 RATIO (10-20); Calcium,Total 9.8 mg/dL (8.5-10.1); Chloride 105 mmol/L (98-107); EST Glomerular Filtration Rate 86 mL/min (>60); Est Glom Filt Rate - Afr Amer 104 mL/min (>60); Estimated Creatinine Clearance 37.26 ml/min; Globulin 3.5 g/dL (2.2-4.2); Glucose 251 mg/dL (74-106); Lipase 66 U/L (73-393); Potassium 3.8 mmol/L (3.5-5.1); Protein, Total 7.1 g/dL (6.4-8.2); Sodium Level 136 mmol/L (136-145)
[2019-01-27 13:09] VITALS: BP 130/77; PULSE 101; RESP 16; O2SAT 96
[2019-01-27] MEDS: Mag Hydrox/Al Hydrox/Simeth 30 ML UDC PO (14:47)
[2019-01-27 14:58] LABS: Mucous, Urine 0 SEEN /hpf (<or=2+); Red Blood Cells-Urine 0 SEEN /hpf (0-5)
[2019-01-27 15:02] LABS: Color, Urine Yellow (Yellow); Glucose, Dipstick 1000 mg/dl (Normal); Leukocyte Esterase-Dipstick 25 /ul (Negative); Nitrite-Dipstick Positive (Negative); Occult Blood-Urine Negative /ul (Negative); Protein-Dipstick 15 mg/dl (Negative); Specific Gravity, Urine 1.015 (1.002-1.030); Urine Bilirubin Dipstick Negative (Negative); Urine Clarity Clear (Clear); Urine Urobilinogen Normal (Normal)
[2019-01-27 15:04] LABS: Ketone-Dipstick 150 mg/dl (Negative)
[2019-01-27 15:07] LABS: Bacteria 2+ /hpf (None Seen); Squamous Epithelial Cells - UA 0-5 SEEN /hpf (5-10); White Blood Cells 0-5 SEEN /hpf (0-5)
[2019-01-27 16:00] VITALS: BP 177/74
[2019-01-27] MEDS: Cephalexin 250 MG Capsule 500 MG PO (16:02)
[2019-01-27 16:03] VITALS: BP 177/74
== END 2019-01-27 16:05 | disposition home or self-care (01) ==
PROVIDERS: Emergency Provider Emergency Medicine; Family Provider Internal Medicine; PCP Internal Medicine
DX: R10.9 Unspecified abdominal pain (principal); E86.0 Dehydration; Z90.49 Acquired absence of other specified parts of digestive tract; K59.00 Constipation, unspecified; R11.0 Nausea; R05 Cough; E11.9 Type 2 diabetes mellitus without complications; I10 Essential (primary) hypertension; G89.29 Other chronic pain; Z82.49 Family history of ischemic heart disease and other diseases of the circulatory system; Z86.718 Personal history of other venous thrombosis and embolism; Z88.8 Allergy status to other drugs, medicaments and biological substances; Z90.3 Acquired absence of stomach [part of]
CPT/HCPCS: 71045; 74177; 80053; 81001; 83690; 84484; 85025; 87086; 87088; 87186; 93005; 96361; 96374; 96375; 99284; J7030; Q9967; A4216; J2405

== ENCOUNTER 2019-05-08 23:48 | Emergency (ER) | payer MEDICARE, SELFPAY ==
[2019-05-08 23:49] VITALS: BP 141/79; PULSE 78; RESP 15; TEMP 36.3; O2SAT 98; BMI 39.1
--- NOTE | 2019-05-09 00:14 | ED.DCSUM_ITS ---
History of Present Illness Chief Complaint: Complaint Informant: Patient Onset: Weeks - 3 Context: Gradual Onset Timing: Continuous Quality: sharp pain Location: perineum and suprapubic area Current Severity: Moderate Maximum Severity: Severe Worsened by: urinating Relieved by: nothing she has tried yet Associated Symptoms: see below. no fevers, back pain, n/v/d, vaginal discharge, gross hematuria. Narrative: Patient presents saying she has been having urinary tract infection symptoms for 3 weeks, has seen [facility] urgent care in her PCP a total of 3 times, has been put on for antibiotics, none of them have helped, and she wants this solved. Unfortunately, she presents at midnight on Saturday night/Saturday morning, 3-4 days into the most recent antibiotic which appears to be nitrofurantoin, when outpatient records are not available to view. She does have some outpatient visit summaries with her and her current medications. They show that she was seen at urgent care initially on 04/18, had a urinalysis that showed trace leukocyte esterace, negative nitrite, 500 glucose, negative protein, there is no micro and they prescribed her cephalexin. She had a follow-up appointment on 04/[address] Aquino advising that she discontinue her Invokana, to finish her Diflucan, and they added oxybutynin, and there was suggestion that she had a yeast infection in her bladder although there are no test results attached to these papers. She states she was convinced to come to the hospital tonight by multiple family members out of concern for the possibility of a kidney infection or something worse. She states that symptoms are unchanged with one exception. For the last day or 2, when she urinates only, the sharp suprapubic pain radiates all the way up her abdomen and into her chest. All of this discomfort resolves when she finishes urinating, but she still has the suprapubic and perineal discomfort that has not gone away for 3 weeks. She denies any dyspnea, palpitations, near syncope or lightheadedness, or any other new symptoms. It seems she has not necessarily been on 4 antibiotics. She was mistaking the Diflucan and oxybutynin as antibiotics. It seems she finished the cephalexin, and now is on nitrofurantoin. She still is on oxybutynin and the Diflucan was prescribed for 14 days, current status is unknown. She has not tried taking any Azo or equivalent analgesic yet. Past medical history as noted below was taken from her list of ICD 10 diagnoses on her [facility] after visit summary. - Past Medical History (1) Chronic pancreatitis Status: Chronic (2) Anxiety Status: Chronic (3) Vitamin D deficiency Status: Chronic (4) Chronic abdominal pain Status: Chronic (5) ADD (attention deficit disorder) without hyperactivity Status: Chronic (6) Hyperparathyroidism, primary Status: Chronic (7) Type 2 diabetes mellitus, without long-term current use of insulin Status: Chronic (8) DDD (degenerative disc disease), lumbosacral Status: Chronic (9) Edema of both legs Status: Chronic (10) Recurrent major depression in partial remission Status: Chronic (11) Hypertriglyceridemia Status: Chronic (12) Primary osteoarthritis involving multiple joints Status: Chronic (13) Essential (primary) hypertension Status: Chronic (14) Paroxysmal atrial fibrillation Status: Chronic (15) History of DVT of lower extremity Status: Resolved Comment: S/P knee surgery Past Medical History - Allergies and Home Meds Allergies/Adverse Reactions: Allergies duloxetine [From Cymbalta] Allergy (Verified 01/27/19 10:14) Other hallucinations/delusions ramelteon [From Rozerem] Allergy (Verified 05/08/19 23:52) Other bupropion Adverse Reaction (Verified 05/08/19 23:52) Other UNKNOWN bupropion HCl [From Wellbutrin] Adverse Reaction (Verified 05/08/19 23:52) Other UNKNOWN dexfenfluramine HCl [From Redux] Adverse Reaction (Verified 05/08/19 23:52) Unknown hydrochlorothiazide Adverse Reaction (Verified 05/08/19 23:52) Other UNKNOWN ketorolac tromethamine [From Toradol] Adverse Reaction (Verified 05/08/19 23:52) Itching oxaprozin [From Daypro] Adverse Reaction (Verified 05/08/19 23:52) Other UNKNOWN Primary Care Physician: Luanne Aquino MD [Primary Care Provider] - Surgical History: arthroscopy, knee - Right knee meniscal repair, cholecystectomy, - - 2013 had bowel resection, also had whipple procedure in [place] 2007-, tubal ligation, carpal tunnel in wrist, shoulder and hand surgery hysterectemy, bladder suspension, wall between vagina and colon. Lives: Alone Smoking Status: Never smoker - Family History Paternal Family History: Family History (Last Reviewed 07/21/18 @ 06:[address] Carmelo Burroughs MD) Mother Myocardial infarction Family History: Reports: - - afib Review of Systems General: Denies: Chills, Fever, Sweats Eyes: Denies: Visual changes - bilaterally, Diplopia ENT: Denies: Bilateral ear pain, Rhinorrhea, Sore throat Cardiovascular: Denies: Chest pain, Palpitations Respiratory: Denies: Dyspnea, Cough, Dyspnea on exertion Gastrointestinal: Reports: Abdominal pain. Denies: Nausea, Vomiting, Diarrhea, Melena, Hematochezia Genitourinary: Reports: Dysuria, - - Perineal pain. Denies: Hematuria, Frequency Musculoskeletal: Reports: Swelling - Chronic lower extremity, unchanged. Denies: Back pain, Extremity Pain Skin: Denies: Rash, Wounds Neurological: Denies: Headache, Weakness, Numbness Psych: Reports: Anxiety. Denies: Suicidal thoughts Physical Exam Vital Signs/Narrative: Vital Signs Temp Pulse Resp BP Pulse Ox 05/08/19 23:49 97.3 F L 78 15 141/79 H 98 Inital Vital Signs reviewed: Yes General: Well nourished, Well developed, No Acute Distress Head: Normocephalic, Atraumatic Eyes: Perrl, EOMI ENT: Moist mucous membranes, No rhinorrhea Neck: Supple, Nontender Cardiovascular: Regular rate, Regular rhythm, No murmurs. Negative for: Tachycardia Respiratory: No distress, CTA bilaterally, Chest nontender Abdomen: Soft, Nondistended, Normal bowel sounds, No masses, Tender - Very mild suprapubic, otherwise benign. Negative for: Guarding, Rebound tenderness Back: Nontender, Normal Inspection. Negative for: CVA tenderness Extremities: Nontender, Edema - Trace bilateral ankles, symmetric. Negative for: Calf Tenderness Skin: Normal color, No rash Neurological: Alert, Oriented x3, Cranial nerves II-XII grossly intact, Normal Strength, Normal Sensation, Normal Gait Psychological: Normal Mood, - - A little anxious Diagnostic/Tx/Re-eval Laboratory Results 05/09/19 05/09/19 05/09/19 00:20 00:34 00:34 WBC 7.5 RBC 5.29 Hgb 15.8 H Hct 47.3 H MCV 89.4 MCH 29.9 MCHC 33.4 RDW Std Deviation 43.2 RDW Coeff of Viviane 13.2 Plt Count 159 MPV 11.1 Immature Gran % (Auto) 0.700 Neut % (Auto) 58.7 Lymph % (Auto) 30.1 [place] % (Auto) 8.5 Eos % (Auto) 1.6 Baso % (Auto) 0.4 Absolute Neuts (auto) 4.4 Absolute Lymphs (auto) 2.26 Nucleated RBC % 0 Sodium 138 Potassium 3.9 Chloride 104 Carbon Dioxide 26.0 Anion Gap 8 BUN 16 Creatinine 0.78 Estim Creat Clear Calc 38.97 Est GFR (MDRD) Af Amer 92 Est GFR (MDRD) Non-Af 76 BUN/Creatinine Ratio 20.5 H Glucose 211 H Calcium 9.9 Urine Color Yellow Urine Clarity Cloudy Urine pH 5.0 Ur Specific [place] 1.015 Urine Protein 100 H Urine Glucose (UA) 1000 H Urine Ketones 5 H Urine Occult Blood 50 H Urine Nitrite Negative Urine Bilirubin Negative Urine Urobilinogen Normal Ur Leukocyte Esterase 500 H Urine RBC 0 SEEN Urine WBC >100 SEEN Ur Squamous Epith Cells 0 SEEN Urine Bacteria 0 SEEN Urine Mucus 0 SEEN Urine Yeast 1+ - Medical Decision Making In reviewing recent records, I have a urine culture from 3-4 months ago that showed E. coli, it was not ESBL, but this is relatively irrelevant. She also had a CT abdomen/pelvis that showed that her kidneys were normal. Given that and her exam/symptoms, I do not think she needs a repeat CT for any reason at this time, and I reassured the patient that clinically there is no suspicion for pyelonephritis here. Her symptoms certainly sound bladder-related, and if she has yeast infection, it is possible that it could take some time to treat. I do not have results of urine cultures or any other urine test other than the urinalysis from her urgent care visit 3 weeks ago. Plan is to get basic labs, she did have a lot of glycosuria 3 weeks ago so we will check her sugar and kidney function, and straight cath for urine. When doing a straight cath, nurses swabbed her with Betadine, it burned her perineum, and it was locally erythematous with some excoriation but no bleeding or wounds. No discharge. Urinalysis is consistent with infection from yeast, there were no bacteria and yeast were seen. We did send a culture just in case. She is on nitrofurantoin, and Diflucan. I see no reason to change these medications. I gave her a dose of Azo to help with her discomfort, advised that she can use that over the weekend, it is [id number], and to follow-up after the weekend, stopping the Azo prior to seeing her doctor in the office to see if she still is having symptoms. ED Disposition - Plan for ED Patient: Disposition: Home or Assisted Living Diagnosis: Sugar cystitis Instructions: Vaginal Infection: Yeast (Candidiasis) Referrals: Luanne Aquino MD [Primary Care Provider] - 3-5 Days
[2019-05-09 00:25] LABS: Bacteria 0 SEEN /hpf (None Seen); Mucous, Urine 0 SEEN /hpf (<or=2+); Red Blood Cells-Urine 0 SEEN /hpf (0-5); Squamous Epithelial Cells - UA 0 SEEN /hpf (5-10)
[2019-05-09 00:27] LABS: Color, Urine Yellow (Yellow); Glucose, Dipstick 1000 mg/dl (Normal); Ketone-Dipstick 5 mg/dl (Negative); Leukocyte Esterase-Dipstick 500 /ul (Negative); Nitrite-Dipstick Negative (Negative); Occult Blood-Urine 50 /ul (Negative); Protein-Dipstick 100 mg/dl (Negative); Specific Gravity, Urine 1.015 (1.002-1.030); Urine Bilirubin Dipstick Negative (Negative); Urine Clarity Cloudy (Clear); Urine Urobilinogen Normal (Normal)
[2019-05-09 00:34] LABS: White Blood Cells >100 SEEN /hpf (0-5)
[2019-05-09 00:35] LABS: Yeast-Urine 1+ /hpf (None Seen)
[2019-05-09 00:46] LABS: Absolute Lymphocyte Count 2.26 X10^3/uL (0.83-4.51); Absolute Neutrophil Count 4.4 X10^3/uL (2.0-7.7); Basophil# 0.03 X10^3/uL; Basophil% 0.4 % (0-1); Eosinophil# 0.12 X10^3/uL; Eosinophils% 1.6 % (0-5); Hematocrit 47.3 % (37-47); Hemoglobin 15.8 g/dL (12.0-15.0); Lymphocyte # 2.26 X10^3/ul (4.0); Lymphocyte % 30.1 % (19-41); Mean Corp Hgb Conc 33.4 g/dL (32-36); Mean Corpuscular Hgb 29.9 pg (27.0-32.0); Mean Corpuscular Volume 89.4 fL (81-99); Mean Platelet Vol. 11.1 fl (6.2-12.0); Monocyte# 0.64 X10^3/uL; Monocyte% 8.5 % (0-10); NRBC Flagged by Analyzer 0 % (0-5); Neutrophil # 4.42 X10^3/uL (2.7-7.7); Neutrophil % 58.7 % (47-70); POSITIVE COUNT YES; Platelet Count 159 K/mm3 (150-450); RBC Distribution Width CV 13.2 % (11.6-14.6); RBC Distribution Width SD 43.2 fl (35.1-43.9); Red Blood Count 5.29 M/mm3 (4.2-5.4); White Blood Count 7.5 K/mm3 (4.4-11.0)
[2019-05-09 00:56] LABS: Anion Gap 8 (5-15); BUN 16 mg/dL (7-18); BUN/Creat Ratio 20.5 RATIO (10-20); Calcium,Total 9.9 mg/dL (8.5-10.1); Chloride 104 mmol/L (98-107); Creatinine, Serum 0.78 mg/dL (0.55-1.02); EST Glomerular Filtration Rate 76 mL/min (>60); Est Glom Filt Rate - Afr Amer 92 mL/min (>60); Estimated Creatinine Clearance 38.97 ml/min; Glucose 211 mg/dL (74-106); Potassium 3.9 mmol/L (3.5-5.1); Sodium Level 138 mmol/L (136-145)
[2019-05-09 01:05] LABS: Differential Indicated SCAN CRITERIA MET
[2019-05-09] MEDS: Phenazopyridine 95 MG Tablet 190 MG PO (01:35)
== END 2019-05-09 01:39 | disposition home or self-care (01) ==
PROVIDERS: Emergency Provider Emergency Medicine; PCP Internal Medicine
DX: B37.41 Candidal cystitis and urethritis (principal); I10 Essential (primary) hypertension; F41.9 Anxiety disorder, unspecified; F98.8 Other specified behavioral and emotional disorders with onset usually occurring in childhood and adolescence; E11.9 Type 2 diabetes mellitus without complications; M51.37 Other intervertebral disc degeneration, lumbosacral region; F32.9 Major depressive disorder, single episode, unspecified; M15.9 Polyosteoarthritis, unspecified; I48.0 Paroxysmal atrial fibrillation; Z87.19 Personal history of other diseases of the digestive system; Z86.718 Personal history of other venous thrombosis and embolism; Z79.84 Long term (current) use of oral hypoglycemic drugs; Z79.899 Other long term (current) drug therapy
CPT/HCPCS: 80048; 81001; 85025; 87086; 87088; 99284; P9612

== ENCOUNTER 2019-05-15 12:37 | Emergency (ER) | payer MEDICARE, SELFPAY ==
[2019-05-15 12:38] VITALS: BP 145/56; PULSE 57; RESP 18; TEMP 36.8; O2SAT 96; BMI 40.3
--- NOTE | 2019-05-15 12:51 | ED.RN ---
DAUGHTER ARRIVED TO ED WITH CONCERNS FOR MOTHER. MOTHER WAS BROUGHT TO ED BY EMS. DAUGHTER LEFT HER PHONE NUMBER FOR QUESTIONS OR UPDATES. ALEXADNRIA LEACH [phone]. Janice JIMÉNEZ RN [id number]
--- NOTE | 2019-05-15 12:57 | RAD_ITS ---
STUDY: X-RAY CHEST REASON FOR EXAM: Female, 78 years old. WEAKNESS X4 WEEKS TECHNIQUE: Single AP portable view of the chest. COMPARISON: Comparison is made with prior study January 27, 2019. FINDINGS: EKG electrodes are seen. The lungs are clear and expanded. There is no demonstrated pleural abnormality. Normal size heart. Normal mediastinum and deondre. Normal visualized pulmonary arteries. Normal visualized aortic arch and descending thoracic aorta. There are diffuse degenerative changes of the visualized thoracic spine. Normal visualized ribs, clavicles, and shoulders. There is no demonstrated abnormality of the visualized soft tissue structures of the upper abdomen. RAD/Chest 1 View (Portable) IMPRESSION: No acute abnormality is seen. Electronically Signed: Uvaldo Biswas, at 13:30 EDT , Service support ,
--- NOTE | 2019-05-15 12:57 | EKG12_ITS ---
Test Reason : FATIGUE Blood Pressure : / mmHG Vent. Rate : 052 BPM Atrial Rate : 052 BPM P-R Int : 188 ms QRS Dur : 098 ms QT Int : 482 ms P-R-T Axes : 031 002 -66 degrees QTc Int : 448 ms Sinus bradycardia with sinus arrhythmia T wave abnormality, consider inferior ischemia T wave abnormality, consider anterolateral ischemia Abnormal ECG When compared with ECG of 27-JAN-2019 11:19, T wave inversion now evident in Anterior leads Confirmed by LEIDY KEE, JENNIFER ([id number]), online content editor JIMMY HART ([id number]) on 05/26/2019 2:26:58 PM Referred By: ALLY/TASH Confirmed By:MOHIT FORBES MD
--- NOTE | 2019-05-15 13:01 | ED.DCSUM_ITS ---
- ER Visit Summary Date of Service: 05/15/19 Chief Complaint: Generalized fatigue and weakness. History of Present Illness: The patient is a 78 F history of diabetes and reportedly treated for UTI for the last several weeks. Also history of A. fib but not on any blood thinners. Patient states that she has not felt well for several weeks. She is been generally weak. She has had some urinary incontinence. She feels like her memory is worse and has had dysuria. Physical Examination: Older female no acute distress. Stable and afebrile. She does not look septic or toxic. She is in no distress. H EENT exam dry mucous membranes. Neck nontender no lymphadenopathy. Lungs clear to auscultation bilaterally. Heart regular rhythm no murmur. Rate about 60. Abdomen is obese but soft nontender normal bowel sounds no peritoneal signs. Both the right upper and right lower quadrants are unremarkable. No signs of obstruction. She is moving all 4 extremities. Calves are nontender without edema. Neurologically she is awake. She is alert. She is answering questions. She has no focal motor deficits. Test Results: White count of 10. Hemoglobin 15. No bands. Chemistries unremarkable gap of 9. Creatinine 0.6. UA greater than 100 white cells 3+ bacteria no nitrates no epithelial cells. Culture sent will be treated as UTI. TSH normal 0.83. Chest x-ray no acute abnormality read both by myself and the radiologist. Emergency Department Course and Treatment: Older female complaining of generalized fatigue. She has an unremarkable exam. Repeat exam patient is doing well at 245. We discussed her test results. She states she is on no antibiotics at home. She will be started on Keflex 4 times daily for 10 days. Follow-up with her primary care physician. Treatment Plan: Keflex 4 times daily for 10 days. Follow-up. Disposition: Discharge Impression: Fatigue and generalized weakness Acute UTI This note was generated with [employer] dictation software. It may contain incorrect words, spelling, and punctuation that were not noted in review of the chart prior to signing ED Disposition - Plan for ED Patient: Referrals: Luanne Aquino MD [Primary Care Provider] -
[2019-05-15 13:08] LABS: Absolute Lymphocyte Count 1.95 X10^3/uL (0.83-4.51); Absolute Neutrophil Count 7.3 X10^3/uL (2.0-7.7); Basophil# 0.04 X10^3/uL; Basophil% 0.4 % (0-1); Eosinophil# 0.05 X10^3/uL; Eosinophils% 0.5 % (0-5); Hematocrit 45.9 % (37-47); Hemoglobin 15.6 g/dL (12.0-15.0); Lymphocyte # 1.95 X10^3/ul (4.0); Lymphocyte % 18.7 % (19-41); Mean Corpuscular Hgb 29.6 pg (27.0-32.0); Mean Corpuscular Volume 87.1 fL (81-99); Mean Platelet Vol. 9.9 fl (6.2-12.0); Monocyte# 0.99 X10^3/uL; Monocyte% 9.5 % (0-10); NRBC Flagged by Analyzer 0 % (0-5); Neutrophil # 7.32 X10^3/uL (2.7-7.7); Platelet Count 183 K/mm3 (150-450); RBC Distribution Width CV 13.1 % (11.6-14.6); RBC Distribution Width SD 41.1 fl (35.1-43.9); Red Blood Count 5.27 M/mm3 (4.2-5.4); White Blood Count 10.4 K/mm3 (4.4-11.0)
[2019-05-15] MEDS: 0.9% Normal Saline 1,000 ML 999 ML IV (13:17)
[2019-05-15 13:28] LABS: Mucous, Urine 0 SEEN /hpf (<or=2+); Squamous Epithelial Cells - UA 0 SEEN /hpf (5-10)
[2019-05-15 13:30] LABS: Anion Gap 9 (5-15); BUN 13 mg/dL (7-18); Calcium,Total 10.4 mg/dL (8.5-10.1); Chloride 104 mmol/L (98-107); Creatinine, Serum 0.68 mg/dL (0.55-1.02); EST Glomerular Filtration Rate 89 mL/min (>60); Est Glom Filt Rate - Afr Amer 107 mL/min (>60); Estimated Creatinine Clearance 38.97 ml/min; Glucose 244 mg/dL (74-106); Potassium 3.5 mmol/L (3.5-5.1); Sodium Level 138 mmol/L (136-145); Thyroid Stim Hormone (TSH) 0.83 uIU/mL (0.358-3.74)
[2019-05-15 13:37] LABS: Color, Urine Yellow (Yellow); Glucose, Dipstick 1000 mg/dl (Normal); Ketone-Dipstick 50 mg/dl (Negative); Leukocyte Esterase-Dipstick 500 /ul (Negative); Nitrite-Dipstick Negative (Negative); Occult Blood-Urine 50 /ul (Negative); Protein-Dipstick 100 mg/dl (Negative); Specific Gravity, Urine 1.015 (1.002-1.030); Urine Bilirubin Dipstick Negative (Negative); Urine Clarity Cloudy (Clear); Urine Urobilinogen Normal (Normal)
[2019-05-15 14:00] LABS: White Blood Cells >100 SEEN /hpf (0-5)
[2019-05-15 14:01] LABS: Bacteria 3+ /hpf (None Seen); Red Blood Cells-Urine 0-5 SEEN /hpf (0-5)
[2019-05-15 14:02] LABS: Yeast-Urine 3+ /hpf (None Seen)
[2019-05-15 14:27] VITALS: BP 170/74; PULSE 53; RESP 20; O2SAT 100
--- NOTE | 2019-05-15 14:48 | ED.DEP ---
ED Disposition - Plan for ED Patient: Disposition: Home or Assisted Living Instructions: ED CYSTITIS Female Adult Prescriptions: Cephalexin [Keflex] 500 mg PO Q6 #40 cap Prescription Printed Referrals: Luanne Aquino MD [Primary Care Provider] - 1 Week Additional Instructions: Plenty of fluids and rest. Make sure you are taking your antibiotic Keflex 1 pill 4 times a day till gone. Follow-up your primary care physician Dr. Linda Aquino to ensure you are improving.
--- NOTE | 2019-05-15 15:05 | ED.RN ---
PT DAUGHTER UPDATED. DAUGHTER CONCERNED ABOUT PT TAKING EXTRA MEDS AND BEING CONFUSED. CONCERNS DISCUSSED
[2019-05-15] MEDS: Cephalexin 250 MG Capsule 500 MG PO (15:10)
[2019-05-15 15:11] VITALS: BP 154/71; PULSE 64; RESP 21; O2SAT 98
== END 2019-05-15 15:31 | disposition home or self-care (01) ==
PROVIDERS: Emergency Provider Emergency Medicine; PCP Internal Medicine
DX: R53.1 Weakness (principal); N39.0 Urinary tract infection, site not specified
CPT/HCPCS: 71045; 80048; 81001; 84443; 85025; 87086; 87088; 93005; 96360; 99285; J7030; P9612; A4216

== ENCOUNTER 2019-05-25 09:19 | Emergency (ER) | payer MEDICARE, SELFPAY ==
[2019-05-25 09:20] VITALS: BP 159/77; PULSE 51; RESP 18; TEMP 36.6; O2SAT 97; BMI 38.2
[2019-05-25 09:34] VITALS: BP 159/77; PULSE 51; RESP 18; TEMP 36.6; O2SAT 97
--- NOTE | 2019-05-25 09:53 | ED.VISSUMM ---
- ER Visit Summary Date of Service: 05/25/19 Chief Complaint: Dysuria History of Present Illness: The patient is a 78 F who presents with dysuria. She has had this for 6 weeks. She has been seen here multiple times for this. She has been on Macrobid and Keflex. At one point I see documented that she was on Diflucan. She states that this is not getting any better. She has lower abdominal pain as well as dysuria. She states that she has had low-grade temperatures and she also has a nonproductive cough. Denies any nausea or vomiting. On chart review her urine cultures both grew out yeast, not Sugar albicans. Physical Examination: Vital signs reviewed. HEENT exam unremarkable. Heart is regular rate and rhythm without murmurs. Lungs are clear to auscultation. Abdomen is soft with suprapubic tenderness. There is no guarding or rebound tenderness. Extremities reveal no edema. Skin exam normal. Neurologic exam normal. Test Results: White blood cell count normal. Hemoglobin 15.6. Chloride 109. Glucose 192. Chest x-ray normal. Urinalysis does reveal greater than 100 white blood cells. Emergency Department Course and Treatment: I reviewed the patient's past urine cultures. The past 2 have shown that it is a yeast causing her infections. She has been on Diflucan but it was only a 2-week course. At this point I will cover her with antibiotics for the UTI. I will give her an antifungal to take for 4 weeks. Her creatinine is normal. She will need to call her doctor for follow-up to monitor her creatinine and liver enzymes as an outpatient. She states that her PCP try to get her an appointment with a urologist at the [facility] but they have not called her back. I recommended that she follow-up on this to try to get an appointment. I do not see any reason why she needs to be admitted to the hospital at this time. Treatment Plan: [] Disposition: Discharge Impression: UTI This note was generated with [employer] dictation software. It may contain incorrect words, spelling, and punctuation that were not noted in review of the chart prior to signing ED Disposition - Plan for ED Patient: Disposition: Home or Assisted Living Instructions: ED CYSTITIS Female Adult Prescriptions: Fluconazole [Diflucan] 400 mg PO DAILY #56 tab Transmission Status: Pending to [facility]/pharmacy #[id number] Nitrofurantoin Macrocrystals [Macrobid] 100 mg PO Q12 #14 cap Transmission Status: Pending to [facility]/pharmacy #[id number] Referrals: Luanne Aquino MD [Primary Care Provider] -
[2019-05-25 10:43] VITALS: BP 158/74; PULSE 53; RESP 18; TEMP 36.6; O2SAT 98
[2019-05-25 10:52] LABS: Mucous, Urine 0 SEEN /hpf (<or=2+)
[2019-05-25 10:55] LABS: Color, Urine Straw (Yellow); Glucose, Dipstick Normal (Normal); Ketone-Dipstick Negative (Negative); Leukocyte Esterase-Dipstick 500 /ul (Negative); Nitrite-Dipstick Negative (Negative); Occult Blood-Urine 50 /ul (Negative); Protein-Dipstick 100 mg/dl (Negative); Specific Gravity, Urine 1.015 (1.002-1.030); Urine Bilirubin Dipstick Negative (Negative); Urine Clarity Sl. Cloudy (Clear); Urine Urobilinogen Normal (Normal)
[2019-05-25 11:03] LABS: Renal Epithelial Cells 0-5 SEEN /hpf (0-5); Squamous Epithelial Cells - UA 0-5 SEEN /hpf (5-10); White Blood Cells >100 SEEN /hpf (0-5)
[2019-05-25 11:06] LABS: Yeast-Urine RARE /hpf (None Seen)
[2019-05-25 11:07] LABS: Bacteria RARE /hpf (None Seen); Red Blood Cells-Urine 0-5 SEEN /hpf (0-5)
[2019-05-25 11:17] VITALS: BP 158/74; PULSE 53; RESP 18; TEMP 36.6; O2SAT 98
[2019-05-25 11:43] LABS: Absolute Lymphocyte Count 2.49 X10^3/uL (0.83-4.51); Basophil# 0.05 X10^3/uL; Basophil% 0.6 % (0-1); Eosinophil# 0.11 X10^3/uL; Eosinophils% 1.3 % (0-5); Hematocrit 47.7 % (37-47); Hemoglobin 15.6 g/dL (12.0-15.0); Lymphocyte # 2.49 X10^3/ul (4.0); Lymphocyte % 29.5 % (19-41); Mean Corp Hgb Conc 32.7 g/dL (32-36); Mean Corpuscular Hgb 29.4 pg (27.0-32.0); Mean Platelet Vol. 9.9 fl (6.2-12.0); Monocyte# 0.69 X10^3/uL; Monocyte% 8.2 % (0-10); NRBC Flagged by Analyzer 0 % (0-5); Neutrophil # 5.04 X10^3/uL (2.7-7.7); Neutrophil % 59.7 % (47-70); Platelet Count 143 K/mm3 (150-450); RBC Distribution Width CV 13.6 % (11.6-14.6); RBC Distribution Width SD 44.9 fl (35.1-43.9); White Blood Count 8.4 K/mm3 (4.4-11.0)
[2019-05-25 11:56] LABS: Anion Gap 3 (5-15); BUN 20 mg/dL (7-18); BUN/Creat Ratio 25.9 RATIO (10-20); Calcium,Total 10.4 mg/dL (8.5-10.1); Chloride 109 mmol/L (98-107); Creatinine, Serum 0.77 mg/dL (0.55-1.02); EST Glomerular Filtration Rate 77 mL/min (>60); Est Glom Filt Rate - Afr Amer 93 mL/min (>60); Estimated Creatinine Clearance 38.97 ml/min; Glucose 192 mg/dL (74-106); Potassium 4.1 mmol/L (3.5-5.1); Sodium Level 140 mmol/L (136-145)
--- NOTE | 2019-05-25 12:05 | RAD_ITS ---
STUDY: X-RAY CHEST REASON FOR EXAM: Female, 78 years old. COUGH, FEVER, FATIGUE; -- UTI, H/O AFIB TECHNIQUE: Single AP portable view of the chest. COMPARISON: Comparison is made with prior study dated May 15, 2019. FINDINGS: The lungs are clear and expanded. Scattered calcified granulomas. There is no demonstrated pleural abnormality. Normal size heart. Normal mediastinum and deondre. Normal visualized pulmonary arteries. Normal visualized aortic arch and descending thoracic aorta. There are diffuse degenerative changes of the visualized thoracic spine. Findings suggestive of calcific tendinitis overlying the greater tuberosity of the left humerus. There is no demonstrated abnormality of the visualized soft tissue structures of the upper abdomen. RAD/Chest 1 View (Portable) IMPRESSION: No acute abnormality is seen. Electronically Signed: Uvaldo Biswas, at 12:25 EDT , Service support ,
[2019-05-25 12:13] VITALS: BP 156/65; PULSE 57; RESP 16; TEMP 36.8; O2SAT 100; O2SAT 99
[2019-05-25] MEDS: Morphine 4 MG/ML Syringe IM (12:32)
--- NOTE | 2019-05-25 12:50 | ED.RN ---
IV attempted by 2 RN's and medic unsuccessfully. MD made aware. Ok to discontinue IV insertion order.
== END 2019-05-25 13:04 | disposition home or self-care (01) ==
PROVIDERS: Emergency Provider Emergency Medicine; PCP Internal Medicine
DX: N39.0 Urinary tract infection, site not specified (principal); R05 Cough; E11.9 Type 2 diabetes mellitus without complications; I10 Essential (primary) hypertension; E78.00 Pure hypercholesterolemia, unspecified; Z86.718 Personal history of other venous thrombosis and embolism
CPT/HCPCS: 36415; 71045; 80048; 81001; 85025; 96372; 96374; 99282; A4216

== ENCOUNTER 2019-05-27 07:30 | Emergency (ER) | payer MEDICARE, SELFPAY ==
[2019-05-27 07:30] VITALS: BP 162/64; PULSE 78; RESP 18; O2SAT 97
[2019-05-27 07:31] VITALS: BP 158/60; PULSE 67; RESP 17; TEMP 36.9; O2SAT 95; BMI 37.3
--- NOTE | 2019-05-27 08:28 | ED.VISSUMM ---
- ER Visit Summary Date of Service: 05/27/19 Chief Complaint: UTI History of Present Illness: The patient is a 78 F here with a suspected UTI. She has suprapubic pain which is worse with urinating. She has been on Macrobid. She had previous urine cultures that showed yeast. She is being treated with Diflucan as well. She says that she feels like her bladder constricts into a ball and she has severe pain with urination. She has a history of total hysterectomy, sling. She is following with the [facility] urologist. She called a week ago, but says they are waiting for test results, and so she has not been seen. Physical Examination: Afebrile and vital signs unremarkable. Patient alert and oriented. Nontoxic in appearance. She has some mild suprapubic tenderness. No CVA tenderness. Skin appears normal. Test Results: Patient was here 2 days ago. I reviewed her lab work, and will not be repeating. There is no indication to repeat. We will check urinalysis and culture as this was not done. Emergency Department Course and Treatment: Recheck urine and culture. Her vitals are reassuring. Exam is reassuring. She may have a UTI, but it sounds like she is having bladder spasms. She was treated with suppository for spasms. Patient symptoms resolved with the suppository. I suspect that most of her pain is from spasms. I repeated a culture. Results are pending. She will continue her antibiotics. There is nothing to suggest kidney stone or other cause of her pain. She will follow-up with urology. Treatment Plan: As above Disposition: Discharge Impression: Bladder spasms This note was generated with [employer] dictation software. It may contain incorrect words, spelling, and punctuation that were not noted in review of the chart prior to signing ED Disposition - Plan for ED Patient: Referrals: Luanne Aquino MD [Primary Care Provider] -
[2019-05-27 08:55] LABS: Bacteria 0 SEEN /hpf (None Seen); Mucous, Urine 0 SEEN /hpf (<or=2+); Red Blood Cells-Urine 0 SEEN /hpf (0-5); Squamous Epithelial Cells - UA 0 SEEN /hpf (5-10)
[2019-05-27 09:10] LABS: Color, Urine Yellow (Yellow); Glucose, Dipstick 100 mg/dl (Normal); Ketone-Dipstick 50 mg/dl (Negative); Leukocyte Esterase-Dipstick 500 /ul (Negative); Nitrite-Dipstick Negative (Negative); Occult Blood-Urine 50 /ul (Negative); Protein-Dipstick 100 mg/dl (Negative); Specific Gravity, Urine 1.015 (1.002-1.030); Urine Bilirubin Dipstick Negative (Negative); Urine Clarity Cloudy (Clear); Urine Urobilinogen Normal (Normal)
[2019-05-27 09:26] LABS: White Blood Cells >100 SEEN /hpf (0-5)
--- NOTE | 2019-05-27 09:39 | NURSING ---
chalo persaud rn talking with pt's daughters regarding frustrations and feeling that should be admitted because in for same thing now for 6weeks dr. price to call and talk with daughter.
--- NOTE | 2019-05-27 09:40 | ED.DEP ---
ED Disposition - Plan for ED Patient: Instructions: Understanding Urinary Tract Infections (UTIs) Prescriptions: Opium/Belladonna Alkaloids [Belladonna-Opium 16.2-60 Supp] 1 ea CO BID PRN PRN 3 Days #6 supp.rect PRN Reason: Spasms Prescription Printed Referrals: Yodit Tesfaye MD [STAFF PHYSICIAN] -
== END 2019-05-27 10:10 | disposition home or self-care (01) ==
PROVIDERS: Emergency Provider Emergency Medicine; PCP Internal Medicine
DX: N32.89 Other specified disorders of bladder (principal); R10.2 Pelvic and perineal pain; Z90.710 Acquired absence of both cervix and uterus
CPT/HCPCS: 81001; 87086; 87088; 99283

== ENCOUNTER 2019-12-11 12:33 | Emergency (ER) | payer MEDICARE, SELFPAY ==
[2019-12-11 12:34] VITALS: BP 200/88; PULSE 67; RESP 12; TEMP 36.7; O2SAT 97; BMI 38.9
--- NOTE | 2019-12-11 12:51 | EKG12_ITS ---
Test Reason : CP Blood Pressure : / mmHG Vent. Rate : 063 BPM Atrial Rate : 063 BPM P-R Int : 178 ms QRS Dur : 086 ms QT Int : 386 ms P-R-T Axes : 049 -04 026 degrees QTc Int : 395 ms Normal sinus rhythm Nonspecific T wave abnormality Abnormal ECG Confirmed by DWIGHT KEE, ANNE ([id number]), video tape editor AIDEN ELLIS ([id number]) on 12/14/2019 11:31:42 AM Referred By: NICHOLE Confirmed By:ANNE QUINTANILLA MD
--- NOTE | 2019-12-11 12:55 | ED.DCSUM_ITS ---
History of Present Illness Informant: Patient, EMS Onset: Yesterday Activity at onset: Rest Timing: Continuous Quality: Sharp, Stabbing Location: Substernal Current Severity: Moderate Maximum Severity: Severe Worsened By: Movement of Arm, Movement of Torso Relieved By: Nothing Associated Symptoms: Negative for: Nausea, Vomiting, Diaphoresis, Dyspnea, Cough, Fever, Lightheadedness, Acid Reflux, Palpitations Narrative: 79-year-old female presents with back pain that radiates to her chest. It started yesterday when she was laying in her dentist chair. She has a history of chronic back pain and does see a chiropractor. She states that the pain is only worse with movement. She has no exertional pain. She has not been short of breath lightheaded or dizzy. Denies nausea vomiting or diaphoresis. Denies leg pain or swelling recent travel or surgery history of DVT or PE. Denies cough or fever. Denies hemoptysis. Known weakness or paresthesias of the upper or lower extremities. No abdominal pain. Prior Similar Symptoms: Yes Recent Illness/Hospitalization: No CVD Risk Factors: Hypertension, Diabetes. Negative for: Hypercholesterolemia, Family History 1' </=55, Smoking PE Risk Factors: Negative for: Recent Travel/Surgery, Recenet Immobilization, Prior DVT or PE, Cancer, OCP + Smoking + >/=35 TAD Risk Factors: Negative for: Marfan's Syndrome, Hypertension, Family History <Jose Martin Carrillo - Last Filed: 12/11/19 13:49> <Nathaniel Diallo - Last Filed: 12/12/19 00:39> Chief Complaint: Chest Pain Past Medical History Prior records reviewed: Yes Past Medical History: - - Hypertension hyperlipidemia type 2 diabetes Surgical History: arthroscopy, knee - Right knee meniscal repair, cholecystectomy, - - 2013 had bowel resection, also had whipple procedure in [place] 2007-, tubal ligation, carpal tunnel in wrist, shoulder and hand surgery hysterectemy, bladder suspension, wall between vagina and colon. Lives: With Family Smoking Status: Never smoker Alcohol: None Drugs: None - Family History Paternal Family History: Family History (Last Reviewed 07/21/18 @ 06:[address] Carmelo Burroughs MD) Mother Myocardial infarction Family History: Reports: - - afib <Jose Martin Carrillo - Last Filed: 12/11/19 13:49> - Family History Paternal Family History: Family History (Last Reviewed 07/21/18 @ 06:[address] Carmelo Burroughs MD) Mother Myocardial infarction <Nathaniel Diallo - Last Filed: 12/12/19 00:39> - Allergies and Home Meds Allergies/Adverse Reactions: Allergies duloxetine [From Cymbalta] Allergy (Verified 12/11/19 12:38) Other hallucinations/delusions ramelteon [From Rozerem] Allergy (Verified 12/11/19 12:38) Other bupropion Adverse Reaction (Verified 12/11/19 12:38) Other UNKNOWN bupropion HCl [From Wellbutrin] Adverse Reaction (Verified 12/11/19 12:38) Other UNKNOWN dexfenfluramine HCl [From Redux] Adverse Reaction (Verified 12/11/19 12:38) Unknown hydrochlorothiazide Adverse Reaction (Verified 12/11/19 12:38) Other UNKNOWN ketorolac tromethamine [From Toradol] Adverse Reaction (Verified 12/11/19 12:38) Itching oxaprozin [From Daypro] Adverse Reaction (Verified 12/11/19 12:38) Other UNKNOWN Primary Care Physician: Luanne Aquino MD [Primary Care Provider] - Review of Systems All systems negative except as indicated General: Denies: Chills, Fever, Sweats Eyes: Denies: Visual changes - bilaterally, Diplopia ENT: Denies: Rhinorrhea, Sore throat Cardiovascular: Reports: Chest pain. Denies: Palpitations, Heart racing Respiratory: Denies: Dyspnea, Cough, Dyspnea on exertion Gastrointestinal: Denies: Abdominal pain, Nausea, Vomiting, Diarrhea, Melena, Hematochezia Genitourinary: Denies: Dysuria, Hematuria, Frequency Musculoskeletal: Reports: Back pain. Denies: Myalgias, Arthralgias, Neck pain, Swelling, Extremity Pain Skin: Denies: Rash, Wounds Neurological: Denies: Headache, Weakness, Parasthesia, Numbness <Jose Martin Carrillo - Last Filed: 12/11/19 13:49> Physical Exam Vital Signs/Narrative: Vital Signs Temp Pulse Resp BP Pulse Ox 12/11/19 12:34 98.1 F 67 12 200/88 H 97 Inital Vital Signs reviewed: Yes General: Well nourished, Well developed, No Acute Distress Head: Normocephalic, Atraumatic Eyes: Perrl, EOMI ENT: Moist mucous membranes, No rhinorrhea Neck: Supple, Nontender Cardiovascular: Regular rate, Regular rhythm, No murmurs Respiratory: No distress, CTA bilaterally, Chest nontender Abdomen: Soft, Nontender, Nondistended, Normal bowel sounds Back: Nontender, Normal Inspection Extremities: Nontender, No edema, - - Normal pulses of all 4 extremities.. Negative for: Tenderness, Edema, Calf Tenderness Skin: Normal color, No rash Neurological: Alert, Oriented x3, Cranial nerves II-XII grossly intact, Normal Strength, Normal Sensation Psychological: Normal affect, Normal Mood <Jose Martin Carrillo - Last Filed: 12/11/19 13:49> Diagnostic/Tx/Re-eval Chest X-Ray - ED: 1 View, Read by ED Physician, Read by Radiologist, No Acute Disease - Rhythm Strip Rhythm Strip: Sinus Rhythm Rate: 66 Ectopy: None - EKG Initial EKG Interpretation: Sinus Rhythm, No Acute Injury Pattern Prior: Unchanged Treatment: Aspirin, NTG SL Repeat Eval: Pain Free - Medical Decision Making EKG was sinus rhythm. Normal intervals no ectopy no ST segment or T wave changes. Unchanged from previous EKG. She was given aspirin and nitroglycerin. Laboratory work-up unremarkable. Troponin is negative. Chest x-ray was unremarkable. Repeat exam blood pressure 178/70. Patient is pain-free. She is resting comfortably. She has had pain now for over 24 hours her troponin is negative and we mutually agreed this seems to be coming from her back. She will continue her medications follow-up with her primary care physician or return back to the emergency department for worsening symptoms which we discussed <Jose Martin Carrillo - Last Filed: 12/11/19 13:49> - Medical Decision Making Patient was seen with me. I did a [id number] examination with the patient. Patient presents with chest pain that became worse today. Patient states her pain started in her back and radiates around to her chest. Patient states this started a few days ago while she was having dental work done and laying back in the dental chair. Patient denies any shortness of breath. Patient denies any nausea or vomiting. Patient denies any diaphoresis. Patient states she attempted to crack her back with no improvement of her pain. Vital signs are stable. Patient is afebrile. Patient is in no acute distress. Oral mucosa is pink and moist. Neck is supple. Trachea is midline. There is no JVD. Heart was regular rate and rhythm. Lungs are clear and equal bilaterally. Abdomen is soft. Bowel sounds are normal. There is no tenderne ss. Cranial nerves II through XII are intact. There are no focal motor or sensory deficits noted. EKG showed normal sinus rhythm. There are no acute ST or T wave changes. Chest x-ray was obtained. There is no acute cardiopulmonary process. CBC, basic metabolic profile, and troponin were obtained were all within normal limits. Patient was given aspirin and nitroglycerin here. Patient was feeling better on reevaluation. Patient has a HEART score of 3. Patient was advised that this is low risk for acute cardiac event. Patient was instructed to follow-up with her primary care physician in 5 to 7 days. Patient was instructed return if worse in any way. Patient understood and was agreeable with the plan. All questions were answered. <Nathaniel Diallo - Last Filed: 12/12/19 00:39> ED Disposition <Jsoe Martin Carrillo - Last Filed: 12/11/19 13:49> <Nathaniel Diallo - Last Filed: 12/12/19 00:39> - Plan for ED Patient: Disposition: Home or Assisted Living Diagnosis: Chest pain, Back pain, DDD (degenerative disc disease), lumbosacral Instructions: ED Chest Pain NonCardiac, ED Back Care Tips Prescriptions: cycloBENZAPRine HCl [Flexeril] 10 mg PO TID PRN PRN #15 tab PRN Reason: Muscle Spasm Transmission Status: Received by [id number] Referrals: Luanne Aquino MD [Primary Care Provider] -
--- NOTE | 2019-12-11 13:00 | RAD_ITS ---
STUDY: X-RAY CHEST REASON FOR EXAM: Female, 79 years old. CHEST PAIN TECHNIQUE: Single AP portable view of the chest. COMPARISON: Comparison is made with prior study dated 05/25/2019. FINDINGS: EKG electrodes are seen. Hyperinflation. The lungs are clear. There is no demonstrated pleural abnormality. Normal size heart. Normal mediastinum and deondre. Normal visualized pulmonary arteries. Normal visualized aortic arch and descending thoracic aorta. There are degenerative changes of the visualized thoracic spine. Normal visualized ribs, clavicles, and shoulders. There is no demonstrated abnormality of the visualized soft tissue structures of the upper abdomen. RAD/Chest 1 View (Portable) IMPRESSION: No acute abnormality is seen. Electronically Signed: Uvaldo Biswas, at 13:27 EDT , Service support ,
[2019-12-11 13:07] LABS: Absolute Lymphocyte Count 2.52 X10^3/uL (0.83-4.51); Absolute Neutrophil Count 2.6 X10^3/uL (2.0-7.7); Basophil# 0.04 X10^3/uL; Basophil% 0.7 % (0-1); Eosinophil# 0.09 X10^3/uL; Eosinophils% 1.6 % (0-5); Hematocrit 47.6 % (37-47); Hemoglobin 15.8 g/dL (12.0-15.0); Lymphocyte # 2.52 X10^3/ul (4.0); Lymphocyte % 44.1 % (19-41); Mean Corp Hgb Conc 33.2 g/dL (32-36); Mean Corpuscular Hgb 29.9 pg (27.0-32.0); Mean Corpuscular Volume 90.2 fL (81-99); Mean Platelet Vol. 10.1 fl (6.2-12.0); Monocyte# 0.44 X10^3/uL; Monocyte% 7.7 % (0-10); NRBC Flagged by Analyzer 0 % (0-5); Neutrophil # 2.58 X10^3/uL (2.7-7.7); Neutrophil % 45.2 % (47-70); Platelet Count 150 K/mm3 (150-450); RBC Distribution Width CV 12.7 % (11.6-14.6); RBC Distribution Width SD 41.6 fl (35.1-43.9); Red Blood Count 5.28 M/mm3 (4.2-5.4); White Blood Count 5.7 K/mm3 (4.4-11.0)
[2019-12-11 13:22] LABS: Anion Gap 5 (5-15); BUN 12 mg/dL (7-18); BUN/Creat Ratio 16.3 RATIO (10-20); Calcium,Total 10.3 mg/dL (8.5-10.1); Chloride 101 mmol/L (98-107); Creatinine, Serum 0.74 mg/dL (0.55-1.02); EST Glomerular Filtration Rate 81 mL/min (>60); Est Glom Filt Rate - Afr Amer 98 mL/min (>60); Estimated Creatinine Clearance 38.35 ml/min; Glucose 218 mg/dL (74-106); Potassium 4.2 mmol/L (3.5-5.1); Sodium Level 136 mmol/L (136-145)
[2019-12-11 14:01] VITALS: BP 192/85; PULSE 60; RESP 16; O2SAT 97
--- NOTE | 2019-12-11 14:01 | ED.RN ---
spoke with PA about nitro- order to not give. pt being discharged.
--- NOTE | 2019-12-11 14:17 | ED.DCSUM_ITS ---
- ER Visit Summary Date of Service: 12/11/19 Chief Complaint: [] History of Present Illness: The patient is a 79 F [] Physical Examination: [] Test Results: [] Emergency Department Course and Treatment: [] Treatment Plan: [] Disposition: [] Impression: [] This note was generated with [employer] dictation software. It may contain incorrect words, spelling, and punctuation that were not noted in review of the chart prior to signing ED Disposition - Plan for ED Patient: Disposition: Home or Assisted Living Diagnosis: Chest pain, Back pain, DDD (degenerative disc disease), lumbosacral Instructions: ED Chest Pain NonCardiac, ED Back Care Tips Prescriptions: cycloBENZAPRine HCl [Flexeril] 10 mg PO TID PRN PRN #15 tab PRN Reason: Muscle Spasm Transmission Status: Pending to [id number] Referrals: Luanne Aquino MD [Primary Care Provider] -
--- NOTE | 2019-12-11 14:24 | ED.RN ---
pt had not taken BP med today. had her take in ED prior to dc.
== END 2019-12-11 14:24 | disposition home or self-care (01) ==
PROVIDERS: Emergency Provider Physician Assistant Medical; PCP Internal Medicine
DX: M51.37 Other intervertebral disc degeneration, lumbosacral region (principal); R07.9 Chest pain, unspecified; M54.9 Dorsalgia, unspecified; E11.9 Type 2 diabetes mellitus without complications; E78.5 Hyperlipidemia, unspecified; I10 Essential (primary) hypertension; Z82.49 Family history of ischemic heart disease and other diseases of the circulatory system; Z88.8 Allergy status to other drugs, medicaments and biological substances; Z90.49 Acquired absence of other specified parts of digestive tract
CPT/HCPCS: 71045; 80048; 84484; 85025; 93005; 99285; A4216

== ENCOUNTER 2020-10-02 05:37 | Emergency (ER) | payer MEDICARE, SELFPAY ==
[2020-10-02 05:38] VITALS: BP 171/91; PULSE 69; RESP 20; TEMP 35.9; O2SAT 96; BMI 44.2
--- NOTE | 2020-10-02 06:01 | EDS_ITS ---
HPI History of Present Illness Chief Complaint: Complaint Informant: patient Onset/Context/Timing Onset: Days Context: Gradual Onset Current Severity: Moderate Maximum Severity: Moderate Narrative Narrative: Patient presents with bladder spasms for the past 4 days associated with a UTI. Patient was seen at an urgent care and initially started on Keflex. They received a phone call a few days later that the culture revealed the infection was resistant to Keflex and she was switched to Macrobid. Patient presents tonight stating that she is having severe bladder spasms. She had an infection earlier this year that took approximately 8 weeks to get the bladder spasms under control. She states the only thing that helped was B&O suppo sitories. She is currently taking Pyridium but did not note much improvement with that. [facility] Medical History Anxiety DDD (degenerative disc disease) DVT (deep venous thrombosis) Essential (primary) hypertension History of DVT of lower extremity (05/2017) Hyperlipidemia Obesity Osteoarthritis Paroxysmal atrial fibrillation Segmental and somatic dysfunction of lumbar region Segmental and somatic dysfunction of pelvic region Segmental and somatic dysfunction of sacral region Segmental and somatic dysfunction of thoracic region Small bowel obstruction Type 2 diabetes mellitus whipple surgery Home Medications alprazolam 0.5 mg PO QHS PRN 05/25/19 [History Last Taken Unknown] bumetanide 1 - 2 mg PO DAILY PRN 05/25/19 [History Last Taken Unknown] cholecalciferol (vitamin D3) 50,000 unit PO QWEEK 05/25/19 [History Last Taken Unknown] fluticasone propionate 1 spray NASAL DAILY 05/25/19 [History Last Taken Unknown] metformin 1,000 mg PO BID 05/25/19 [History Last Taken Unknown] omeprazole 20 mg PO DAILY PRN 05/25/19 [History Last Taken Unknown] oxycodone-acetaminophen 1 ea PO TID PRN PRN 05/25/19 [History Last Taken Unknown] atorvastatin 40 mg PO QHS 12/11/19 [History Last Taken Unknown] cyclobenzaprine 10 mg PO TID PRN PRN #15 tab 12/11/19 [Rx Last Taken Unknown] ibuprofen 800 mg PO Q8H PRN 12/11/19 [History Last Taken Unknown] loratadine 10 mg PO DAILY 12/11/19 [History Last Taken Unknown] atenolol 50 mg tablet 50 mg PO DAILY #30 tab 05/30/20 [Rx Last Taken Unknown] alprazolam 0.5 mg PO DAILY 10/02/20 [History Last Taken Unknown] belladonna alkaloids-opium 1 supp ME BID PRN 4 Days #8 ea 10/02/20 [Rx Last Taken Unknown] nitrofurantoin monohyd/m-cryst [Macrobid] 100 mg PO BID 10/02/20 [History Last Taken Unknown] phenazopyridine 200 mg PO TID 10/02/20 [History Last Taken Unknown] Allergy/AdvReac Type Severity Reaction Status Date / Time duloxetine [From Cymbalta] Allergy Other Verified 12/11/19 12:38 ramelteon [From Rozerem] Allergy Other Verified 12/11/19 12:38 bupropion AdvReac Other Verified 12/11/19 12:38 bupropion HCl AdvReac Other Verified 12/11/19 12:38 [From Wellbutrin] dexfenfluramine HCl AdvReac Unknown Verified 12/11/19 12:38 [From Redux] hydrochlorothiazide AdvReac Other Verified 12/11/19 12:38 ketorolac tromethamine AdvReac Itching Verified 12/11/19 12:38 [From Toradol] oxaprozin [From Daypro] AdvReac Other Verified 12/11/19 12:38 Family History Mother Myocardial infarction Surgical History H/O medial meniscus repair of right knee History of bilateral carpal tunnel release History of bladder suspension procedure History of bladder suspension procedure History of bowel resection History of hysterectomy History of hysterectomy Hx of cholecystectomy S/P cholecystectomy sigmoid colon removed vaginal wall repaired Social History Smoking Status: Never smoker second hand exposure: No alcohol intake: current alcohol intake frequency: holidays/special occasions only substance use type: does not use caffeine: Yes what type of physical activity do you participate in: none frequency: does not exercise seatbelt use: always ROS ROS ED Constitutional Constitutional ED: Denies chills or fever(s) Eyes Eyes: Denies change in vision ENT ENT ED: Denies sore throat Cardiovascular Cardiovascular: Denies chest pain Respiratory/Chest Respiratory/Chest: Denies cough or dyspnea Gastrointestinal Gastrointestinal: Reports abdominal pain and nausea; Denies diarrhea or vomiting Genitourinary Genitourinary ED: Reports dysuria and urinary frequency Musculoskeletal Musculoskeletal: Denies back pain Integumentary Denies rash Neurologic Neurologic: Denies headache(s) or weakness Allergic/Immunologic Allergic/Immunologic ED: Denies urticaria EXAM Physical Exam Const Vital Signs: 10/02/20 05:38 Temperature 96.7 F L Temperature Source Temporal Pulse Rate 69 Respiratory Rate 20 H Blood Pressure 171/91 H Blood Pressure Mean 117 Pulse Ox 96 Oxygen Delivery Method Room Air Positive well nourished and well developed General Appearance ED: well developed HEENT Reports normocephalic and head/scalp atraumatic Eyes PERRL and EOMs intact bilaterally Neck supple Chest Wall inspection of chest normal and palpation of chest normal Resp normal respiratory effort and clear to auscultation bilaterally Cardio regular rate and regular rhythm GI normal to inspection, nondistended, normoactive bowel sounds Palpation: soft and tender suprapubic Back/Spine no CVA tenderness Extremity normal to inspection Neuro oriented x3 Sensorium / Orientation: alert Psych mental status grossly normal Skin no rashes or lesions noted MDM MDM MDM Narrative Medical decision making narrative: Patient is given a BNO suppository here. Urinalysis is checked. Lab Data Attestation: I reviewed the patient's lab results. Labs: Laboratory Results - last 24 hr 10/02/20 06:15 Urine Color Yellow Urine Clarity Turbid Urine pH 6.0 Ur Specific Vansant 1.015 Urine Protein 100 H Urine Glucose (UA) 1000 H Urine Ketones 5 H Urine Occult Blood 50 H Urine Nitrite Positive H Urine Bilirubin Negative Urine Urobilinogen Normal Ur Leukocyte Esterase 500 H Urine RBC 0 SEEN Urine WBC >100 SEEN Ur Squamous Epith Cells 0 SEEN Urine Bacteria 3+ Urine Mucus 0 SEEN Treatment and Re-Evaluation Comments:: I was able to review the urine culture from the [facility]. She has E. coli that is resistant to multiple drugs. My suspicion is that her urine still looks so infected because she did just switch to Macrobid yesterday. Urine culture will be sent off today's urine as well. I attempted to send a prescription for the B&O suppositories to our pharmacy to be filled. We were advised that they were only 2 left in the hospital and they were unable to use those for outpatient prescriptions. Written prescription will be handed to the patient so they can check area pharmacies to see who may have this in stock. Discharge Plan Triage Chief Complaint: Complaint ED Provider: Geri Alvarez Dx/Rx/DC Orders Clinical Impression: Cystitis, Bladder spasms Instructions: ED CYSTITIS Female Adult Prescriptions: New belladonna alkaloids-opium 16.2-60 mg suppository 1 supp ME BID PRN (Reason: pain) 4 Days Qty: 8 RF: 0 No Action alprazolam 0.5 MG tablet 0.5 mg PO QHS PRN (Reason: anxiety) RF: 0 bumetanide 0.5 MG tablet 1 - 2 mg PO DAILY PRN (Reason: Swelling) RF: 0 omeprazole 20 MG capsule 20 mg PO DAILY PRN (Reason: Dyspnea) RF: 0 oxycodone-acetaminophen 1 EACH tablet 1 ea PO TID PRN PRN (Reason: Pain/Inflammation) RF: 0 metformin 500 MG tablet 1,000 mg PO BID RF: 0 cholecalciferol (vitamin D3) 1,250 MCG capsule 50,000 unit PO QWEEK RF: 0 fluticasone propionate 1 SPRAY spray,suspension 1 spray NASAL DAILY RF: 0 atorvastatin 40 MG tablet 40 mg PO QHS RF: 0 ibuprofen 800 MG tablet 800 mg PO Q8H PRN (Reason: pain) RF: 0 loratadine 10 MG capsule 10 mg PO DAILY RF: 0 cyclobenzaprine 10 MG tablet 10 mg PO TID PRN PRN (Reason: Muscle Spasm) Qty: 15 RF: 0 phenazopyridine 200 mg tablet 200 mg PO TID RF: 0 alprazolam 0.5 mg tablet 0.5 mg PO DAILY RF: 0 nitrofurantoin monohyd/m-cryst [Macrobid] 100 mg Capsule 100 mg PO BID RF: 0 atenolol 50 mg tablet 50 mg PO DAILY Qty: 30 RF: 11 Primary Care Provider: Luanne Aquino Referrals: Yodit Tesfaye MD [STAFF PHYSICIAN] - As soon as possible Luanne Aquino MD [Primary Care Provider] - Disposition Disposition: Home, Self Care
[2020-10-02 06:21] LABS: Mucous, Urine 0 SEEN /hpf (<or=2+); Red Blood Cells-Urine 0 SEEN /hpf (0-5); Squamous Epithelial Cells - UA 0 SEEN /hpf (5-10)
[2020-10-02 06:26] LABS: Color, Urine Yellow (Yellow); Glucose, Dipstick 1000 mg/dl (Normal); Ketone-Dipstick 5 mg/dl (Negative); Leukocyte Esterase-Dipstick 500 /ul (Negative); Nitrite-Dipstick Positive (Negative); Occult Blood-Urine 50 /ul (Negative); Protein-Dipstick 100 mg/dl (Negative); Specific Gravity, Urine 1.015 (1.002-1.030); Urine Bilirubin Dipstick Negative (Negative); Urine Clarity Turbid (Clear); Urine Urobilinogen Normal (Normal)
[2020-10-02 06:39] LABS: Bacteria 3+ /hpf (None Seen); White Blood Cells >100 SEEN /hpf (0-5)
== END 2020-10-02 07:01 | disposition home or self-care (01) ==
PROVIDERS: Emergency Provider Emergency Medicine; PCP Internal Medicine
DX: N30.90 Cystitis, unspecified without hematuria (principal); N32.89 Other specified disorders of bladder; B96.20 Unspecified Escherichia coli [E. coli] as the cause of diseases classified elsewhere; Z16.30 Resistance to unspecified antimicrobial drugs; Z90.710 Acquired absence of both cervix and uterus; Z90.49 Acquired absence of other specified parts of digestive tract; I10 Essential (primary) hypertension; E78.5 Hyperlipidemia, unspecified; E11.9 Type 2 diabetes mellitus without complications; Z86.718 Personal history of other venous thrombosis and embolism; I48.0 Paroxysmal atrial fibrillation; F41.9 Anxiety disorder, unspecified; M99.04 Segmental and somatic dysfunction of sacral region; M99.05 Segmental and somatic dysfunction of pelvic region; Z79.1 Long term (current) use of non-steroidal anti-inflammatories (NSAID); Z79.84 Long term (current) use of oral hypoglycemic drugs; Z79.899 Other long term (current) drug therapy; Z87.440 Personal history of urinary (tract) infections
CPT/HCPCS: 81001; 87086; 87088; 99282

== ENCOUNTER 2020-10-06 10:31 | Inpatient (IN) | payer MEDICARE, SELFPAY ==
[2020-10-06] VITALS (7 sets, daily range): BP systolic 120–168; BP diastolic 64–93; PULSE 62–70; RESP 13–21; TEMP 35.9–37.2; O2SAT 92–100; BMI 38.0; BMI 38.4
--- NOTE | 2020-10-06 10:54 | CT_ITS ---
STUDY: CT BRAIN WITHOUT CONTRAST REASON FOR EXAM: Female, 79 years old. Confusion RADIATION DOSAGE (If Supplied By Facility): CTDIvol = ( 44.99 ) mGy, DLP = ( 762.36 ) mGycm TECHNIQUE: Transaxial CT imaging of the brain was performed without administration of intravenous contrast material. Individualized dose optimization techniques were used for this CT. COMPARISON: Comparison is made with prior study dated 05/30/2017. FINDINGS: Normal soft tissue structures. Normal calvarium. There is mild cerebral atrophy with widening of the extra-axial spaces and ventricular dilatation. There are areas of decreased attenuation within the white matter tracts of the supratentorial brain, consistent with microvascular disease changes. Normal basal ganglia and thalami. Normal brainstem. There is mild cerebellar atrophy. There is no intracranial hemorrhage. There are no findings of an acute ischemic infarction. Atherosclerotic calcification of the cavernous portions of the internal carotid arteries bilaterally. Normal visualized paranasal sinuses. CT/Brain/Head without Contrast IMPRESSION: Chronic involutional changes of the brain. Electronically Signed: Uvaldo Biswas MD at 13:52 EDT , Service support ,
--- NOTE | 2020-10-06 10:56 | EKG12_ITS ---
Test Reason : Blood Pressure : / mmHG Vent. Rate : 063 BPM Atrial Rate : 063 BPM P-R Int : 202 ms QRS Dur : 088 ms QT Int : 416 ms P-R-T Axes : 052 -06 173 degrees QTc Int : 425 ms Sinus rhythm with occasional Premature ventricular complexes ST & T wave abnormality, consider lateral ischemia Abnormal ECG Confirmed by LOU KEE, SAMI ([id number]), editorial specialist AIDEN ELLIS ([id number]) on 10/10/2020 1:01:37 PM Referred By: ALLY Confirmed By:SAMI BLAKE MD
--- NOTE | 2020-10-06 10:58 | EDS_ITS ---
HPI History of Present Illness Chief Complaint: Fall Detail of Chief Complaint: Recent nausea, vomiting and diarrhea. Informant: patient Onset/Context/Timing Onset: Today Context: Gradual Onset Timing: Intermittent Current Severity: Mild Maximum Severity: Mild Narrative Narrative: 79-year-old female past medical history of diabetes. States she has been sick for the last week with nausea, vomiting and diarrhea. She denies any fever. Some chills. She denies any shortness of breath or chest pain. She states she had a cough of white sputum. Today felt weak and fell. Was unable to get up. Use her med alert was brought in by squad. Prior similar symptoms: No PFSH PFSH Medical History Anxiety DDD (degenerative disc disease) DVT (deep venous thrombosis) Essential (primary) hypertension History of DVT of lower extremity (05/2017) Hyperlipidemia Obesity Osteoarthritis Paroxysmal atrial fibrillation Segmental and somatic dysfunction of lumbar region Segmental and somatic dysfunction of pelvic region Segmental and somatic dysfunction of sacral region Segmental and somatic dysfunction of thoracic region Small bowel obstruction Type 2 diabetes mellitus whipple surgery Home Medications alprazolam 0.5 mg PO QHS PRN 05/25/19 [History Last Taken 10/05/20] bumetanide 1 - 2 mg PO DAILY PRN 05/25/19 [History Last Taken Unknown] cholecalciferol (vitamin D3) 50,000 unit PO MOFR 05/25/19 [History Last Taken 10/03/20] fluticasone propionate 1 spray NASAL DAILY 05/25/19 [History Last Taken Unknown] metformin 1,000 mg PO BID 05/25/19 [History Last Taken 10/06/20] oxycodone-acetaminophen 1 ea PO TID PRN PRN 05/25/19 [History Last Taken 10/05/20] atorvastatin 40 mg PO QHS 12/11/19 [History Last Taken 10/06/20] atenolol 50 mg tablet 50 mg PO DAILY #30 tab 05/30/20 [Rx Last Taken 10/06/20] belladonna alkaloids-opium 1 supp [place] BID PRN 4 Days #8 ea 10/02/20 [Rx Last Taken 10/06/20] nitrofurantoin monohyd/m-cryst [Macrobid] 100 mg PO BID 10/02/20 [History Last Taken 10/06/20] loratadine 10 mg PO DAILY 10/06/20 [History Last Taken 10/06/20] Allergy/AdvReac Type Severity Reaction Status Date / Time duloxetine [From Cymbalta] Allergy Other Verified 12/11/19 12:38 ramelteon [From Rozerem] Allergy Other Verified 12/11/19 12:38 bupropion AdvReac Other Verified 12/11/19 12:38 bupropion HCl AdvReac Other Verified 12/11/19 12:38 [From Wellbutrin] dexfenfluramine HCl AdvReac Unknown Verified 12/11/19 12:38 [From Redux] hydrochlorothiazide AdvReac Other Verified 12/11/19 12:38 ketorolac tromethamine AdvReac Itching Verified 12/11/19 12:38 [From Toradol] oxaprozin [From Daypro] AdvReac Other Verified 12/11/19 12:38 Family History Mother Myocardial infarction Surgical History H/O medial meniscus repair of right knee History of bilateral carpal tunnel release History of bladder suspension procedure History of bladder suspension procedure History of bowel resection History of hysterectomy History of hysterectomy Hx of cholecystectomy S/P cholecystectomy sigmoid colon removed vaginal wall repaired Social History Smoking Status: Never smoker second hand exposure: No alcohol intake: current alcohol intake frequency: holidays/special occasions only substance use type: does not use caffeine: Yes what type of physical activity do you participate in: none frequency: does not exercise seatbelt use: always ROS ROS ED ROS Narrative Generalized weakness with nausea, vomiting and diarrhea. Cough. Review of Systems ROS Unobtainable: Denies due to encephalopathy Constitutional Constitutional ED: Reports fatigue and frequent falls; Denies headache(s) Eyes Eyes: Denies blindness ENT ENT ED: Denies change in voice Cardiovascular Cardiovascular: Denies chest pain Respiratory/Chest Respiratory/Chest: Reports none and cough; Denies dyspnea Gastrointestinal Gastrointestinal: Denies abdominal pain Genitourinary Genitourinary ED: Denies flank pain Musculoskeletal Musculoskeletal: Denies deformity Integumentary Denies abscess or Abrasions Neurologic Neurologic: Denies abnormal movements Psychiatric Psychiatric: Denies anxiety Endocrine Endocrinology: Denies cold intolerance Hematologic/Lymphatic Hematologic/Lymphatic: Denies anemia Allergic/Immunologic Allergic/Immunologic ED: Denies lip swelling or mouth swelling EXAM Physical Exam Narrative Exam Narrative: Elderly female no acute distress. Vital signs are stable and afebrile. Pulse ox 9 9% on room air no signs of hypoxia. H EENT exam unremarkable. No signs of trauma. Nontender. Neck nontender. No lymphadenopathy. Lungs clear to auscultation bilaterally. Heart regular rate and rhythm no murmur rate about 70. Chest wall nontender. Abdomen soft nontender normal bowel sounds no peritoneal signs. Pelvic girdle intact. Moving all 4 extremities. No deformities. Nontender. Able to lift both legs and both arms. Back nontender. Spine nontender. No signs of trauma. Neurologically she is awake. She is alert. She is answering questions. She did not know the day a week she thought was Saturday. She did not know the month of the year. She did know the president. Const Vital Signs: 10/06/20 10:32 10/06/20 10:36 10/06/20 11:09 Temperature 98.9 F 98.9 F Temperature Source Temporal Temporal Pulse Rate 70 70 Respiratory Rate 21 H 21 H Respiratory Effort Normal Non-Labored Blood Pressure 168/74 H 168/74 H Blood Pressure Mean 105 105 Pulse Ox 99 99 Oxygen Delivery Method Room Air Room Air 10/06/20 12:43 10/06/20 14:05 Temperature 98.8 F 98.1 F Temperature Source Temporal Temporal Pulse Rate 63 62 Respiratory Rate 14 13 Respiratory Effort Blood Pressure 120/81 H 166/93 H Blood Pressure Mean 94 117 Pulse Ox 95 92 Oxygen Delivery Method Room Air Room Air Positive well nourished, well developed, alert and no apparent distress; Negative for cachectic, contractures, unkempt or oriented x3 General Appearance ED: well developed; Negative for unkempt, cachectic or contractures Nutritional Appearance: Negative for cachectic HEENT Reports normocephalic, head/scalp atraumatic and moist oral mucous membranes; Denies hearing grossly normal bilaterally or dry mucous membranes normocephalic and normal to inspection Mouth ED: No dry mucous membranes Mouth: No dry mucous membranes Eyes PERRL and EOMs intact bilaterally General Eye ED: Yes normal appearance of both eyes Neck full ROM, No nuchal rigidity, no lymphadenopathy, supple, no meningeal signs and no JVD General: normal visual inspection Lymph Lymphatic: no lymphadenopathy noted and no lymphedema noted; Negative for lymphedema or lymphadenopathy Chest Wall inspection of chest normal and palpation of chest normal Resp normal respiratory effort, normal air movement, no retractions, no use of accessory muscles and clear to auscultation bilaterally Cardio regular rate, regular rhythm, S1 normal heart sound, S2 normal heart sound, no murmurs, no rub, no gallops, no clicks and no JVD GI normal to inspection, nondistended, normoactive bowel sounds, soft to palpation, non-tender, non-distended and no masses no CVA tenderness Back/Spine no CVA tenderness, normal to inspection, thoracic and lumbar spine normal to inspection and no thoracic nor lumbar tenderness Extremity normal to inspection, full ROM, no joint enlargement, no calf tenderness and no pedal edema Neuro CN's II-XII intact bilaterally, moves all extremities and no focal motor deficits Neuro Narrative: Confused to day, month but did not know the year and the president. Psych mental status grossly normal, thought process normal, cooperative, affect normal, speech normal and activity/motor behavior normal Appearance: Negative for unkempt Skin no rashes or lesions noted, no wounds, skin turgor normal, no jaundice, no petechiae and no mottling MDM MDM MDM Narrative Medical decision making narrative: Older female states she has had nausea, vomiting diarrhea for a week. Said falls today. Has no obvious signs of trauma or traumatic injury. She is confused to day and month. She will undergo work-up including CAT scan labs. Lab Data Attestation: I reviewed the patient's lab results. Lab results narrative: Patient is white count 8. Hemoglobin 15. Electrolytes I gap is 7. Normal creatinine. Glucose of 221. LFTs normal. Urinalysis shows 25-50 white cells 1+ bacteria no nitrates. A culture will be sent. Lactic acid of 3.0. Labs: Laboratory Results - last 24 hr 10/06/20 10/06/20 10/06/20 11:00 12:30 12:30 WBC 8.9 RBC 5.02 Hgb 15.0 Hct 44.6 MCV 88.8 MCH 29.9 MCHC 33.6 RDW Std Deviation 40.6 RDW Coeff of Viviane 12.5 Plt Count 154 MPV 9.8 Immature Gran % (Auto) 1.000 H Neut % (Auto) 51.9 Lymph % (Auto) 35.7 [place] % (Auto) 8.2 Eos % (Auto) 2.5 Baso % (Auto) 0.7 Absolute Neuts (auto) 4.6 Absolute Lymphs (auto) 3.16 Nucleated RBC % 0 Sodium 137 Potassium 3.9 Chloride 103 Carbon Dioxide 27.0 Anion Gap 7 BUN 14 Creatinine 0.81 Estim Creat Clear Calc 49.43 Est GFR (MDRD) Af Amer 88 Est GFR (MDRD) Non-Af 73 BUN/Creatinine Ratio 17.3 Glucose 221 H Lactic Acid Calcium 10.5 H Total Bilirubin 0.40 AST 18 ALT 27 Alkaline Phosphatase 108 Total Protein 7.8 Albumin 3.8 Globulin 4.0 Albumin/Globulin Ratio 1.0 Urine Color Yellow Urine Clarity Sl. Cloudy Urine pH 6.0 Ur Specific [place] 1.010 Urine Protein 15 H Urine Glucose (UA) 100 H Urine Ketones Negative Urine Occult Blood 25 H Urine Nitrite Negative Urine Bilirubin Negative Urine Urobilinogen Normal Ur Leukocyte Esterase 500 H Urine RBC 0-5 SEEN Urine WBC 25-50 SEEN Ur Squamous Epith Cells 0-5 SEEN Amorphous Sediment 1+ Urine Bacteria 1+ Urine Mucus 0 SEEN 10/06/20 12:30 WBC RBC Hgb Hct MCV MCH MCHC RDW Std Deviation RDW Coeff of Viviane Plt Count MPV Immature Gran % (Auto) Neut % (Auto) Lymph % (Auto) [place] % (Auto) Eos % (Auto) Baso % (Auto) Absolute Neuts (auto) Absolute Lymphs (auto) Nucleated RBC % Sodium Potassium Chloride Carbon Dioxide Anion Gap BUN Creatinine Estim Creat Clear Calc Est GFR (MDRD) Af Amer Est GFR (MDRD) Non-Af BUN/Creatinine Ratio Glucose Lactic Acid 3.0 H* Calcium Total Bilirubin AST ALT Alkaline Phosphatase Total Protein Albumin Globulin Albumin/Globulin Ratio Urine Color Urine Clarity Urine pH Ur Specific [place] Urine Protein Urine Glucose (UA) Urine Ketones Urine Occult Blood Urine Nitrite Urine Bilirubin Urine Urobilinogen Ur Leukocyte Esterase Urine RBC Urine WBC Ur Squamous Epith Cells Amorphous Sediment Urine Bacteria Urine Mucus Radiography Chest X-Ray - ED: 1 View, Read by ED Physician, Heart, Lungs, Mediastinum, Bony Structures and No Acute Disease Diagnostic Testing: Radiology Impression Brain CT 10/06/20 10:54 IMPRESSION: Chronic involutional changes of the brain. Electronically Signed: Uvaldo Biswas MD at 13:52 EDT , Service support , Chest X-Ray 10/06/20 12:44 IMPRESSION: Normal x-ray examination of the chest. Electronically Signed: Uvaldo Biswas MD at 13:24 EDT , Service support , Portable single view chest x-ray shows no acute abnormality. Rhythm Strip Rhythm Strip: Sinus Rhythm Rate: 63 Ectopy: PVC(s) EKG Initial EKG: Attestation: I personally reviewed and interpreted this EKG as follows: Interpretation: Sinus Rhythm Comments: Sinus rhythm rate of 63 with occasional PVCs. No acute signs of [place]. Inverted T waves in V45 and 6. Discharge Plan Triage Chief Complaint: Fall ED Provider: Prakash Jacobsen Dx/Rx/DC Orders Clinical Impression: Cystitis, Adult failure to thrive Prescriptions: No Action alprazolam 0.5 MG tablet 0.5 mg PO QHS PRN (Reason: anxiety) RF: 0 bumetanide 0.5 MG tablet 1 - 2 mg PO DAILY PRN (Reason: Swelling) RF: 0 oxycodone-acetaminophen 1 EACH tablet 1 ea PO TID PRN PRN (Reason: Pain/Inflammation) RF: 0 metformin 500 MG tablet 1,000 mg PO BID RF: 0 cholecalciferol (vitamin D3) 1,250 MCG capsule 50,000 unit PO MOFR RF: 0 fluticasone propionate 1 SPRAY spray,suspension 1 spray NASAL DAILY RF: 0 atorvastatin 40 MG tablet 40 mg PO QHS RF: 0 nitrofurantoin monohyd/m-cryst [Macrobid] 100 mg Capsule 100 mg PO BID RF: 0 belladonna alkaloids-opium 16.2-60 mg suppository 1 supp [place] BID PRN (Reason: pain) 4 Days Qty: 8 RF: 0 loratadine 10 mg tablet 10 mg PO DAILY RF: 0 atenolol 50 mg tablet 50 mg PO DAILY Qty: 30 RF: 11 Primary Care Provider: Luanne Aquino Referrals: Luanne Aquino MD [Primary Care Provider] - Disposition Disposition: Acute Care Hospital [facility]
[2020-10-06 11:33] LABS: Mucous, Urine 0 SEEN /hpf (<or=2+)
[2020-10-06 11:42] LABS: Color, Urine Yellow (Yellow); Glucose, Dipstick 100 mg/dl (Normal); Ketone-Dipstick Negative (Negative); Leukocyte Esterase-Dipstick 500 /ul (Negative); Nitrite-Dipstick Negative (Negative); Occult Blood-Urine 25 /ul (Negative); Protein-Dipstick 15 mg/dl (Negative); Urine Bilirubin Dipstick Negative (Negative); Urine Clarity Sl. Cloudy (Clear); Urine Urobilinogen Normal (Normal)
[2020-10-06 11:48] LABS: Red Blood Cells-Urine 0-5 SEEN /hpf (0-5); White Blood Cells 25-50 SEEN /hpf (0-5)
[2020-10-06 11:49] LABS: Amorphous Sediment 1+; Bacteria 1+ /hpf (None Seen); Squamous Epithelial Cells - UA 0-5 SEEN /hpf (5-10)
[2020-10-06 12:43] LABS: Absolute Lymphocyte Count 3.16 X10^3/uL (0.83-4.51); Absolute Neutrophil Count 4.6 X10^3/uL (2.0-7.7); Basophil# 0.06 X10^3/uL; Basophil% 0.7 % (0-1); Eosinophil# 0.22 X10^3/uL; Eosinophils% 2.5 % (0-5); Hematocrit 44.6 % (37-47); Lymphocyte # 3.16 X10^3/ul (0.83-4.51); Lymphocyte % 35.7 % (19-41); Mean Corp Hgb Conc 33.6 g/dL (32-36); Mean Corpuscular Hgb 29.9 pg (27.0-32.0); Mean Corpuscular Volume 88.8 fL (81-99); Mean Platelet Vol. 9.8 fl (6.2-12.0); Monocyte# 0.73 X10^3/uL; Monocyte% 8.2 % (0-10); NRBC Flagged by Analyzer 0 % (0-5); Neutrophil # 4.59 X10^3/uL (2.7-7.7); Neutrophil % 51.9 % (47-70); Platelet Count 154 K/mm3 (150-450); RBC Distribution Width CV 12.5 % (11.6-14.6); RBC Distribution Width SD 40.6 fl (35.1-43.9); Red Blood Count 5.02 M/mm3 (4.2-5.4); White Blood Count 8.9 K/mm3 (4.4-11.0)
--- NOTE | 2020-10-06 12:44 | RAD_ITS ---
STUDY: X-RAY CHEST REASON FOR EXAM: Female, 79 years old. ms change TECHNIQUE: Single AP portable view of the chest. COMPARISON: Comparison is made with prior study dated 12/11/2019. FINDINGS: EKG electrodes are seen. The lungs are clear and expanded. There is no demonstrated pleural abnormality. Normal size heart. Normal mediastinum and deondre. Normal visualized pulmonary arteries. There is atherosclerotic tortuosity of the aortic arch and descending thoracic aorta. There are diffuse degenerative changes of the visualized thoracic spine. Calcific tendinitis of the left shoulder. There is no demonstrated abnormality of the visualized soft tissue structures of the upper abdomen. RAD/Chest 1 View (Portable) IMPRESSION: Normal x-ray examination of the chest. Electronically Signed: Uvaldo Biswas MD at 13:24 EDT , Service support ,
[2020-10-06] MEDS: 0.9% Normal Saline 1,000 ML 1000 ML IV (12:45)
[2020-10-06 13:00] LABS: AST(SGOT) 18 U/L (15-37); Alanine Aminotransfer ALT/SGPT 27 U/L (13-56); Albumin, Serum 3.8 g/dL (3.2-5.0); Alkaline Phosphatase 108 U/L (45-117); Anion Gap 7 (5-15); BUN 14 mg/dL (7-18); BUN/Creat Ratio 17.3 RATIO (10-20); Calcium,Total 10.5 mg/dL (8.5-10.1); Chloride 103 mmol/L (98-107); Creatinine, Serum 0.81 mg/dL (0.55-1.02); EST Glomerular Filtration Rate 73 mL/min (>60); Est Glom Filt Rate - Afr Amer 88 mL/min (>60); Estimated Creatinine Clearance 49.43 ml/min; Glucose 221 mg/dL (74-106); Potassium 3.9 mmol/L (3.5-5.1); Protein, Total 7.8 g/dL (6.4-8.2); Sodium Level 137 mmol/L (136-145)
--- NOTE | 2020-10-06 14:04 | ED.RN ---
delay in atb. pt pulled iv out. pt is a difficult iv access and must use u/s. staff trained in u/s iv access has his own team and will attempt as soon as possible.
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
[2020-10-06] MEDS: Ceftriaxone 1 GM/50 ML BAG IV (15:18)
[2020-10-06] MEDS: HYDROcodone Bitartrate/Apap 5/325 Tablet PO (15:19)
[2020-10-06] MEDS: 0.9% Normal Saline 1,000 ML 75 ML IV (15:52)
[2020-10-06 16:37] LABS: Reflex Lactate? Y
[2020-10-06 17:11] LABS: Magnesium 1.9 mg/dL (1.6-2.6)
[2020-10-06] MEDS: Insulin Lispro 100 UNIT/ML INSULN.PEN SC ×2 (17:42→22:36)
[2020-10-06] MEDS: Enoxaparin 40 MG/0.4 ML Syringe SC (17:43)
[2020-10-06] MEDS: Nystatin Powder 15gm Bottle 1 APPLIC TOPICAL ×2 (17:45→22:34)
[2020-10-06 17:46] LABS: Bedside Glucose 307 mg/dL (70-110)
[2020-10-06] MEDS: 0.9% Saline Lock 10 ML Syringe IV ×2 (19:27→22:34)
[2020-10-06] MEDS: Menthol/Lanolin/Calamine/Znox 113 GM Tube 1 APPLIC TOPICAL (22:34)
[2020-10-06] MEDS: Atorvastatin Calcium 40 MG Tablet PO (22:36)
[2020-10-06 23:41] LABS: Bedside Glucose 208 mg/dL (70-110)
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
[2020-10-07] MEDS: Haloperidol Lactate 5 MG/ML Vial 2 MG IM (01:32)
[2020-10-07] MEDS: 0.9% Saline Lock 10 ML Syringe IV (01:34)
--- NOTE | 2020-10-07 01:41 | NURSING ---
pt hitting and kicking staff. transcription specialist notified and came to the floor. pt moved to room 309.
[2020-10-07 03:17] VITALS: BP 148/87; PULSE 89; RESP 16; TEMP 36.6; O2SAT 95
[2020-10-07] MEDS: 0.9% Normal Saline 1,000 ML 75 ML IV (03:41)
[2020-10-07 07:18] LABS: Absolute Lymphocyte Count 2.43 X10^3/uL (0.83-4.51); Basophil# 0.04 X10^3/uL; Basophil% 0.4 % (0-1); Eosinophils% 0.9 % (0-5); Hematocrit 45.5 % (37-47); Hemoglobin 15.2 g/dL (12.0-15.0); Lymphocyte # 2.43 X10^3/ul (0.83-4.51); Lymphocyte % 21.3 % (19-41); Mean Corp Hgb Conc 33.4 g/dL (32-36); Mean Corpuscular Hgb 29.7 pg (27.0-32.0); Mean Corpuscular Volume 88.9 fL (81-99); Monocyte% 6.1 % (0-10); NRBC Flagged by Analyzer 0 % (0-5); Neutrophil # 8.03 X10^3/uL (2.7-7.7); Neutrophil % 70.4 % (47-70); Platelet Count 149 K/mm3 (150-450); RBC Distribution Width CV 12.4 % (11.6-14.6); RBC Distribution Width SD 40.6 fl (35.1-43.9); Red Blood Count 5.12 M/mm3 (4.2-5.4); White Blood Count 11.4 K/mm3 (4.4-11.0)
--- NOTE | 2020-10-07 07:19 | NURSING ---
daughter, moises, notified of the nights events and room changed to 309.
[2020-10-07 07:44] LABS: AST(SGOT) 24 U/L (15-37); Alanine Aminotransfer ALT/SGPT 26 U/L (13-56); Albumin, Serum 3.5 g/dL (3.2-5.0); Alkaline Phosphatase 103 U/L (45-117); Anion Gap 5 (5-15); BUN 8 mg/dL (7-18); BUN/Creat Ratio 12.5 RATIO (10-20); Calcium,Total 10.1 mg/dL (8.5-10.1); Chloride 110 mmol/L (98-107); Creatinine, Serum 0.64 mg/dL (0.55-1.02); EST Glomerular Filtration Rate 96 mL/min (>60); Est Glom Filt Rate - Afr Amer 116 mL/min (>60); Estimated Creatinine Clearance 38.35 ml/min; Globulin 3.5 g/dL (2.2-4.2); Glucose 215 mg/dL (74-106); Magnesium 1.5 mg/dL (1.6-2.6); Potassium 3.9 mmol/L (3.5-5.1); Sodium Level 139 mmol/L (136-145)
[2020-10-07 09:00] VITALS: BP 148/80; PULSE 97; RESP 18; TEMP 36.5; O2SAT 97
[2020-10-07] MEDS: Enoxaparin 40 MG/0.4 ML Syringe SC (09:10)
[2020-10-07] MEDS: Insulin Lispro 100 UNIT/ML INSULN.PEN SC ×4 (09:10→22:21)
[2020-10-07] MEDS: Menthol/Lanolin/Calamine/Znox 113 GM Tube 1 APPLIC TOPICAL ×2 (09:11→22:14)
[2020-10-07] MEDS: Nystatin Powder 15gm Bottle 1 APPLIC TOPICAL ×2 (09:11→22:18)
[2020-10-07] MEDS: Ceftriaxone 1 GM/50 ML BAG IV (09:19)
[2020-10-07 09:26] LABS: Bedside Glucose 236 mg/dL (70-110)
[2020-10-07 10:00] LABS: Vitamin D,25 Hydroxy 72.7 ng/mL
[2020-10-07] MEDS: Atenolol 50 MG Tablet PO (10:21)
[2020-10-07] MEDS: Acetaminophen 325 MG Tablet 650 MG PO ×2 (10:21→18:51)
[2020-10-07 11:12] LABS: Reflex Lactate? Y
--- NOTE | 2020-10-07 11:49 | PN.HOSP_ITS ---
Documented by User: Antonio MIRANDA 10/07/20 11:57 Subjective Subjective Patient is a 79-year-old female comfortably resting in bed, alert and oriented to self. Patient is still acutely confused and cannot provide much insight into her current condition. Objective Data Objective Data Vital Signs: Vital Signs Temp Pulse Resp BP Pulse Ox 97.7 F L 97 18 148/80 H 97 10/07/20 09:00 10/07/20 09:00 10/07/20 09:00 10/07/20 09:00 10/07/20 09:00 Oxygen Delivery Method Room Air Weight: 217 lb 6.012 oz Body Mass Index (BMI) 38.4 Intake & Output: Intake and Output for Last 24 Hours 10/05/20 10/06/20 10/07/20 23:59 23:59 23:59 Intake Total 650 / 650 1558.75 / 1558.75 Output Total 800 / 800 400 / 400 Balance -150 / -150 1158.75 / 1158.75 Lab / Micro Data Result Diagrams: 10/07/20 07:06 10/07/20 07:06 Labs: Laboratory Results - last 24 hr 10/06/20 11:00: Urine RBC 0-5 SEEN, Urine WBC 25-50 SEEN, Ur Squamous Epith Vicky ls 0-5 SEEN, Amorphous Sediment 1+, Urine Bacteria 1+, Urine Mucus 0 SEEN 10/06/20 12:30: WBC 8.9, RBC 5.02, Hgb 15.0, Hct 44.6, MCV 88.8, MCH 29.9, MCHC 33.6, RDW Std Deviation 40.6, RDW Coeff of Viviane 12.5, Plt Count 154, MPV 9.8, Immature Gran % (Auto) 1.000 H, Neut % (Auto) 51.9, Lymph % (Auto) 35.7, [place] % (Auto) 8.2, Eos % (Auto) 2.5, Baso % (Auto) 0.7, Absolute Neuts (auto) 4.6, Absolute Lymphs (auto) 3.16, Nucleated RBC % 0 10/06/20 12:30: Sodium 137, Potassium 3.9, Chloride 103, Carbon Dioxide 27.0, Anion Gap 7, BUN 14, Creatinine 0.81, Estim Creat Clear Calc 49.43, Est GFR (MDRD) Af Amer 88, Est GFR (MDRD) Non-Af 73, BUN/Creatinine Ratio 17.3, Glucose 221 H, Calcium 10.5 H, Total Bilirubin 0.40, AST 18, ALT 27, Alkaline Phosphatase 108, Total Protein 7.8, Albumin 3.8, Globulin 4.0, Albumin/Globulin Ratio 1.0 10/06/20 12:30: Lactic Acid 3.0 H* 10/06/20 12:30: Magnesium 1.9 10/06/20 17:09: Lactic Acid Cancelled 10/06/20 17:38: POC Glucose 307 H 10/06/20 22:33: POC Glucose 208 H 10/07/20 07:06: WBC 11.4 H, RBC 5.12, Hgb 15.2 H, Hct 45.5, MCV 88.9, MCH 29.7, MCHC 33.4, RDW Std Deviation 40.6, RDW Coeff of Viviane 12.4, Plt Count 149 L, MPV 10.0, Immature Gran % (Auto) 0.900, Neut % (Auto) 70.4 H, Lymph % (Auto) 21.3, [place] % (Auto) 6.1, Eos % (Auto) 0.9, Baso % (Auto) 0.4, Absolute Neuts (auto) 8.0 H, Absolute Lymphs (auto) 2.43, Nucleated RBC % 0 10/07/20 07:06: Sodium 139, Potassium 3.9, Chloride 110 H, Carbon Dioxide 24.0, Anion Gap 5, BUN 8, Creatinine 0.64, Estim Creat Clear Calc 38.35, Est GFR (MDRD) Af Amer 116, Est GFR (MDRD) Non-Af 96, BUN/Creatinine Ratio 12.5, Glucose 215 H, Calcium 10.1, Magnesium 1.5 L, Total Bilirubin 0.70, AST 24, ALT 26, Alkaline Phosphatase 103, Total Protein 7.0, Albumin 3.5, Globulin 3.5, Albumin/Globulin Ratio 1.0 10/07/20 07:06: Vitamin D 25-Hydroxy 72.7 10/07/20 07:06: Lactic Acid 2.0 10/07/20 09:03: POC Glucose 236 H Micro: Microbiology 10/06/20 11:32 Mucosa - Nose SARS-CoV-2 Antigen (Rapid) - Final Radiography Diagnostic Testing: Radiology Impression Brain CT 10/06/20 10:54 IMPRESSION: Chronic involutional changes of the brain. Electronically Signed: Uvaldo Biswas MD at 13:52 EDT , Service support , Chest X-Ray 10/06/20 12:44 IMPRESSION: Normal x-ray examination of the chest. Electronically Signed: Uvaldo Biswas MD at 13:24 EDT , Service support , Rhythm Strip Rhythm Strip: Sinus Rhythm Rate: 63 Ectopy: PVC(s) Physical Exam Const alert Orientation / Consciousness: confused, disoriented and lethargic Exam Limitations: altered mental status HEENT head/scalp atraumatic, moist oral mucous membranes and oropharynx normal Head and Scalp: normocephalic Eyes PERRL, EOMs intact bilaterally and conjunctivae normal Neck no lymphadenopathy, supple and no JVD Resp normal respiratory effort, no retractions, no use of accessory muscles and clear to auscultation bilaterally Cardio regular rate, regular rhythm, no murmurs and no JVD GI normal to inspection, nondistended, normoactive bowel sounds, soft to palpation and non-tender Extremity normal to inspection, full ROM and no clubbing, cyanosis or edema Skin no rashes or lesions noted, no wounds, skin turgor normal and no jaundice Neuro CN's II-XII intact bilaterally Psych affect normal Assessment & Plan Assessment/Plan (1) Acute UTI: (2) History of DVT of lower extremity: (3) Essential (primary) hypertension: (4) Paroxysmal atrial fibrillation: (5) Hyperlipidemia: QUALIFIERS: Hyperlipidemia type: pure hypercholesterolemia Qualified Code(s): E78.00 - Pure hypercholesterolemia, unspecified; E78.0 - Pure hypercholesterolemia PLAN: Day 2: See subjective. Discharge planning: Unclear at this time 1) Acute encephalopathy secondary to acute UTI Patiet presentation has not improved from yesterday regards to her confusion. Urine cultures pending. White count is mildly elevated at 11,000. Lactate is now within normal limits. No evidence of endorgan damage. Brain CT and chest x-ray obtained and are unremarkable. Plan; remain admitted to [facility] 3, continue Rocephin, PT/OT eval ordered and pending. 2) PAF Patient is on atenolol and diltiazem for rate control. Patient is not on any anticoagulation. [id number] score is 7, high risk for stroke. 3) DM2 Hold Metformin due to lactic acidosis. Accu-Cheks with sliding scale insulin ordered. 4) Hx of DVT Not on any anticoagulation. Previously on Xarelto, however taken off for unknown reasons. 5) hyperlipidemia Continue atorvastatin. DVT Prophylaxis - Lovenox Patient seen by Antonio Gallagher PA-C, under the supervision of Dr. Ortega. Documented by User: Dr. Joann Ortega MD 10/07/20 12:51 Objective Data Lab / Micro Data Result Diagrams: 10/07/20 07:06 10/07/20 07:06 Charges/Coding Addendum Addendum: This patient was seen in conjunction with RUBEN Kimble. I have independently interviewed and examined the patient and reviewed pertinent historical, laboratory, and other data. Please refer to RUBEN Kimble's note for his patient's presentation, findings, and recommendations. I have reviewed and his note and concur with his documentation Patient was seen and examined. Overnight, she was confused, hitting staff. She was moved closer to the nurses station. She received a dose of Haldol. Patient appears more tired. Physical Exam: Gen: Comfortable, alert, oriented x2?to person and place but not to time, not pale, not jaundiced CVS:HS I +II, regular, no murmurs RESP: Diminished at lung bases GI: BS present and normal, soft, nontender, no palpable organs EXT:No edema ASSESSMENT: 1. Acute metabolic/infective encephalopathy secondary to UTI 2. Hypomagnesemia 3. Hypercalcemia 4. Hyperglycemia 5. Type II DM 6. Paroxysmal atrial fibrillation Plan: Continue on IV ceftriaxone, follow-up on urine cultures Continue on IV fluids Replace magnesium PT and OT to evaluate and treat Visit Charges Inpatient E&M: 13742 Subs Hosp L2
--- NOTE | 2020-10-07 12:01 | CASEMGMT ---
Addendum entered by Jessica Bridges 10/07/20 12:53: HIRAM LILLY Assessment: Returned call from pt dtr for initial transition planning/care coordination assessment. HIRAM LILLY introduced self and role at [facility], pt dtr voices understanding and consents to assessment. Care providers, pharmacy, and demographics verified/updated. Admitting Dx: AMS PCP: Kenia Specialists: Sheik cardio; MANUEL Garcia Preferred Pharmacy: [facility] Insurance: [employer] [facility] Prescription Benefit: yes LW/HPOA: Pt dtr who is a nurse states verbally she is the HPOA but there is no formal documents. She states she will file them with the analytics specialist. 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 LNOK: Dixie Roman, dtr; Goyo Parrish, son Living Arrangements: Pt lives in a single story condo with one step to enter. Dtr states pt typically is I in ADL's. Transportation: Dtr states pt drives self and she has concerns with pt driving out of town. DME/HHC/SNF: Pt has a walker at home that she sometimes uses and a shower chair. Pt has no hx of HHC or SNF stays. Pt dtr states that pt does get confusion when she has UTI's. She states they are going to have a family meeting when pt is dc'd regarding options for pt. She would like the patient to move closer to her. She states they may be giving her some ultimatums. Dtr is working with the insurance [employer] regarding assistance with house cleaning and picking up of groceries. Offered to leave a private duty list in room in pt folder. Dtr states she will be in to see her, and will ask for HIRAM LILLY to obtain. Discussed options of having HHC if warranted. 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 She states pt bathes self. Pt dtr states no further concerns/needs. CM to follow. Advised pt to ask CM if any further question/concerns/needs arise, voices understanding. Pt Dtr Goal: Home with family meeting to discuss future plans. Plan: Home Original Note: RN CM in to pt room, pt lying with eyes closed. Per nursing staff, pt confused. Placed TC to pt dtr Dixie Abel, per demo sheet, she is HPOA, requested returned call.
[2020-10-07 12:30] LABS: Lactic Acid 1.7 mmol/L (0.4-1.9)
[2020-10-07 12:46] LABS: Bedside Glucose 238 mg/dL (70-110)
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
[2020-10-07 15:30] VITALS: BP 137/75; PULSE 69; RESP 16; TEMP 36.4; O2SAT 96
[2020-10-07] MEDS: Glucerna Shake 120 ML LIQUID PO (17:29)
[2020-10-07] MEDS: 0.9% Normal Saline 1,000 ML 100 ML IV (17:32)
[2020-10-07 17:56] LABS: Bedside Glucose 200 mg/dL (70-110)
--- NOTE | 2020-10-07 18:57 | PCS.PANDOC ---
PANDEMIC DOCUMENTATION INITIATED: Date: 10/03/2020 Time: 190
[2020-10-07 22:12] VITALS: BP 154/66; PULSE 68; RESP 18; TEMP 36.6; O2SAT 97
[2020-10-07] MEDS: oxyCODONE 5 MG Tablet PO (22:14)
[2020-10-07] MEDS: Atorvastatin Calcium 40 MG Tablet PO (22:15)
[2020-10-07 22:50] LABS: Bedside Glucose 253 mg/dL (70-110)
[2020-10-08 04:10] VITALS: BP 167/71; PULSE 71; RESP 16; TEMP 36.4; O2SAT 97
[2020-10-08] MEDS: 0.9% Normal Saline 1,000 ML 100 ML IV (04:21)
[2020-10-08] MEDS: Insulin Lispro 100 UNIT/ML INSULN.PEN SC ×4 (06:27→21:51)
[2020-10-08 06:50] LABS: Bedside Glucose 208 mg/dL (70-110)
[2020-10-08 07:11] LABS: Absolute Lymphocyte Count 3.57 X10^3/uL (0.83-4.51); Absolute Neutrophil Count 3.3 X10^3/uL (2.0-7.7); Basophil# 0.05 X10^3/uL; Basophil% 0.7 % (0-1); Eosinophil# 0.12 X10^3/uL; Eosinophils% 1.6 % (0-5); Hematocrit 43.1 % (37-47); Hemoglobin 14.2 g/dL (12.0-15.0); Lymphocyte # 3.57 X10^3/ul (0.83-4.51); Lymphocyte % 46.9 % (19-41); Mean Corp Hgb Conc 32.9 g/dL (32-36); Mean Corpuscular Hgb 30.1 pg (27.0-32.0); Mean Corpuscular Volume 91.3 fL (81-99); Mean Platelet Vol. 10.1 fl (6.2-12.0); Monocyte# 0.43 X10^3/uL; Monocyte% 5.7 % (0-10); NRBC Flagged by Analyzer 0 % (0-5); Neutrophil # 3.34 X10^3/uL (2.7-7.7); Neutrophil % 43.8 % (47-70); Platelet Count 162 K/mm3 (150-450); RBC Distribution Width CV 12.7 % (11.6-14.6); RBC Distribution Width SD 42.4 fl (35.1-43.9); Red Blood Count 4.72 M/mm3 (4.2-5.4); White Blood Count 7.6 K/mm3 (4.4-11.0)
[2020-10-08 07:33] LABS: Anion Gap 5 (5-15); BUN 8 mg/dL (7-18); BUN/Creat Ratio 12.8 RATIO (10-20); Calcium,Total 9.6 mg/dL (8.5-10.1); Chloride 110 mmol/L (98-107); Creatinine, Serum 0.63 mg/dL (0.55-1.02); EST Glomerular Filtration Rate 98 mL/min (>60); Est Glom Filt Rate - Afr Amer 118 mL/min (>60); Estimated Creatinine Clearance 38.35 ml/min; Glucose 214 mg/dL (74-106); Sodium Level 140 mmol/L (136-145)
[2020-10-08] MEDS: Menthol/Lanolin/Calamine/Znox 113 GM Tube 1 APPLIC TOPICAL ×2 (08:58→21:51)
[2020-10-08] MEDS: Fluticasone 0.05% 1 SPRAY NASAL.SRY NASAL (08:58)
[2020-10-08] MEDS: Enoxaparin 40 MG/0.4 ML Syringe SC (08:59)
[2020-10-08] MEDS: Nystatin Powder 15gm Bottle 1 APPLIC TOPICAL ×2 (08:59→21:51)
[2020-10-08] MEDS: Atenolol 50 MG Tablet PO (09:00)
[2020-10-08] MEDS: Glucerna Shake 120 ML LIQUID PO ×2 (09:06→11:35)
[2020-10-08] MEDS: Ceftriaxone 1 GM/50 ML BAG IV (09:06)
[2020-10-08 09:10] VITALS: BP 159/84; PULSE 76; RESP 20; TEMP 36.4; O2SAT 98
--- NOTE | 2020-10-08 09:25 | NURSING ---
Offered toilet, pt agreed. Walked to bathroom. Washed up with doctor of veterinary medicine and then walked to chair. Sitting in chair.
--- NOTE | 2020-10-08 09:36 | EKG12_ITS ---
Test Reason : AFIB Blood Pressure : / mmHG Vent. Rate : 065 BPM Atrial Rate : 065 BPM P-R Int : 188 ms QRS Dur : 090 ms QT Int : 394 ms P-R-T Axes : 051 -11 181 degrees QTc Int : 409 ms Normal sinus rhythm ST & T wave abnormality, consider anterolateral ischemia Abnormal ECG When compared with ECG of 06-OCT-2020 11:07, MANUAL COMPARISON REQUIRED, DATA IS UNCONFIRMED Confirmed by LOU KEE, SAMI ([id number]), book editor AIDEN ELLIS ([id number]) on 10/11/2020 8:09:17 AM Referred By: DRU Confirmed By:SAMI BLAKE MD
[2020-10-08 11:46] LABS: Bedside Glucose 313 mg/dL (70-110)
--- NOTE | 2020-10-08 13:41 | PCM.DC ---
Discharge Instructions Diet Discharge Diet: No restrictions Activity Discharge Activity: Return to Normal Activity Weight Bearing Status: Weight bearing as tolerated Dressing / Incision Call your doctor if you observe: Fever of 101 or Higher, Numbness or Tingling, Shortness of breath, Dizziness, Chest pain, Increased palpitations (irregular heartbeat) and Calf discomfort Follow Up Care Please Follow Up With: Primary care provider When: Within the next two weeks. Test Results: Test results from this visit will be discussed in further detail at your follow-up appointment, if applicable. Discharge Plan Admission Admit Date/Time: 10/06/20 19:00 Primary Reason for Your Visit: Confusion and weakness Attending Provider: Joann Ortega Primary Care Provider: Luanne Aquino Instructions Patient Instructions: ED Chest Pain, Noncardiac Discharge Orders/Prescriptions Prescriptions: New cefdinir 300 mg capsule 300 mg PO BID Qty: 20 RF: 0 Xarelto 20 mg tablet 20 mg PO DAILY Qty: 30 RF: 0 Continued alprazolam 0.5 MG tablet 0.5 mg PO QHS PRN (Reason: anxiety) RF: 0 bumetanide 0.5 MG tablet 1 - 2 mg PO DAILY PRN (Reason: Swelling) RF: 0 oxycodone-acetaminophen 1 EACH tablet 1 ea PO TID PRN PRN (Reason: Pain/Inflammation) RF: 0 metformin 500 MG tablet 1,000 mg PO BID RF: 0 cholecalciferol (vitamin D3) 1,250 MCG capsule 50,000 unit PO MOFR RF: 0 fluticasone propionate 1 SPRAY spray,suspension 1 spray NASAL DAILY RF: 0 atorvastatin 40 MG tablet 40 mg PO QHS RF: 0 belladonna alkaloids-opium 16.2-60 mg suppository 1 supp [place] BID PRN (Reason: pain) 4 Days Qty: 8 RF: 0 loratadine 10 mg tablet 10 mg PO DAILY RF: 0 atenolol 50 mg tablet 50 mg PO DAILY Qty: 30 RF: 11 Discontinued nitrofurantoin monohyd/m-cryst [Macrobid] 100 mg Capsule 100 mg PO BID RF: 0 Referrals / Follow Up: Luanne Aquino MD [Primary Care Provider] - Within 2 Weeks Disposition Disposition (needs filled in before D/C Order can be placed): Home, Self Care
--- NOTE | 2020-10-08 13:48 | PCM.DC.SUM ---
Documented by User: Antonio MIRANDA 10/08/20 16:53 Providers Date of Admission: 10/06/20 Primary Care Physician: Dr. Luanne Aquino MD Reason For Visit: AMS Diagnosis Discharge Diagnosis (1) Acute UTI: Status: Acute Code(s): N39.0 - Urinary tract infection, site not specified (2) History of DVT of lower extremity: Status: Resolved Code(s): Z86.718 - Personal history of other venous thrombosis and embolism (3) Essential (primary) hypertension: Status: Chronic Code(s): I10 - Essential (primary) hypertension (4) Paroxysmal atrial fibrillation: Status: Chronic Code(s): I48.0 - Paroxysmal atrial fibrillation (5) Hyperlipidemia: Status: Chronic Code(s): E78.5 - Hyperlipidemia, unspecified Qualifiers: Hyperlipidemia type: pure hypercholesterolemia Qualified Code(s): E78.00 - Pure hypercholesterolemia, unspecified; E78.0 - Pure hypercholesterolemia Medications at Discharge Home Medications bumetanide 1 - 2 mg PO DAILY PRN 05/25/19 fluticasone propionate 1 spray NASAL DAILY 05/25/19 metformin 1,000 mg PO BID 05/25/19 oxycodone-acetaminophen 1 ea PO TID PRN PRN 05/25/19 atorvastatin 40 mg PO QHS 12/11/19 atenolol 50 mg tablet 50 mg PO DAILY #30 tab 05/30/20 belladonna alkaloids-opium 1 supp SC BID PRN 4 Days #8 ea 10/02/20 loratadine 10 mg PO DAILY 10/06/20 cefdinir 300 mg PO BID #20 cap 10/08/20 rivaroxaban [Xarelto] 20 mg PO DAILY #30 tab 10/08/20 amlodipine 2.5 mg PO DAILY #30 tab 10/09/20 Hospital Course Summary of Care Provided Minutes Spent on Discharge: 35 Hospital Course: Discharge planning: Patient to discharge home with family, family and patient denied wanting home health care at this time. 1) Acute encephalopathy secondary to acute UTI Urine culture demonstrates no growth. CBC does not demonstrate a leukocytosis. Vital signs are stable and patient is afebrile. Lactate is now within normal limits. No evidence of endorgan damage. Brain CT and chest x-ray obtained and are unremarkable. Plan; continue cefdinir 300 mg p.o. twice daily x10 days, follow-up with primary care provider within the next 2 weeks. 2) PAF Patient is on atenolol and diltiazem for rate control. Patient is not on any anticoagulation. [id number] score is 7, high risk for stroke. Initiate Xarelto 20 mg p.o. daily at dinner. 3) DM2 Hold Metformin due to lactic acidosis. Accu-Cheks with sliding scale insulin ordered. 4) Hx of DVT See #2. 5) hyperlipidemia Continue atorvastatin. Patient seen by Antonio Gallagher PA-C, under the supervision of Dr. Ortega. Physical Exam Narrative Patient is a 79-year-old female comfortably resting in bed, alert and orient x3. Mentation is greatly improved from yesterday and patient has no complaints at this time. Denies chest pain, shortness of breath, palpitations, hemoptysis, sputum production, fever, chills, N/V/D. Const alert, oriented x3 and no apparent distress HEENT normocephalic, head/scalp atraumatic and hearing grossly normal bilaterally Eyes PERRL, EOMs intact bilaterally and conjunctivae normal Neck no lymphadenopathy, supple and no JVD Resp normal respiratory effort, no retractions, no use of accessory muscles and clear to auscultation bilaterally Cardio regular rate, regular rhythm, no murmurs and no JVD GI normal to inspection, nondistended, normoactive bowel sounds, soft to palpation and non-tender Extremity normal to inspection, full ROM and no clubbing, cyanosis or edema Skin no rashes or lesions noted, no wounds and skin turgor normal Neuro CN's II-XII intact bilaterally Psych affect normal Weight / BMI Weight Weight: 217 lb 6.012 oz Body Mass Index (BMI) 38.4 ABG / Lab / Microbiology Data Result Diagrams: 10/08/20 06:30 10/08/20 06:30 Laboratory: Laboratory Results - last 24 hr 10/07/20 17:28: POC Glucose 200 H 10/07/20 21:57: POC Glucose 253 H 10/08/20 06:26: POC Glucose 208 H 10/08/20 06:30: WBC 7.6, RBC 4.72, Hgb 14.2, Hct 43.1, MCV 91.3, MCH 30.1, MCHC 32.9, RDW Std Deviation 42.4, RDW Coeff of Viviane 12.7, Plt Count 162, MPV 10.1, Immature Gran % (Auto) 1.300 H, Neut % (Auto) 43.8 L, Lymph % (Auto) 46.9 H, Banner % (Auto) 5.7, Eos % (Auto) 1.6, Baso % (Auto) 0.7, Absolute Neuts (auto) 3.3, Absolute Lymphs (auto) 3.57, Nucleated RBC % 0 10/08/20 06:30: Sodium 140, Potassium 4.0, Chloride 110 H, Carbon Dioxide 25.0, Anion Gap 5, BUN 8, Creatinine 0.63, Estim Creat Clear Calc 38.35, Est GFR (MDRD) Af Amer 118, Est GFR (MDRD) Non-Af 98, BUN/Creatinine Ratio 12.8, Glucose 214 H, Calcium 9.6 10/08/20 11:30: POC Glucose 313 H Microbiology: Microbiology 10/06/20 11:00 Urine, Random Urine Culture - Preliminary Culture exhibits no growth. 10/06/20 11:32 Mucosa - Nose SARS-CoV-2 Antigen (Rapid) - Final D/C Instructions Discharge Diet: No restrictions Weight Bearing Status: Weight bearing as tolerated Call your doctor if you observe: Fever of 101 or Higher, Numbness or Tingling, Shortness of breath, Dizziness, Chest pain, Increased palpitations (irregular heartbeat) and Calf discomfort Please Follow Up With: Primary care provider When: Within the next two weeks. Meaningful Use Info Meaningful Use Diagnoses (Choose all that apply): None applicable Discharge Plan Admission Admit Date/Time: 10/06/20 19:00 Primary Reason for Your Visit: Confusion and weakness Attending Provider: Joann Ortega Primary Care Provider: Luanne Aquino Instructions Patient Instructions: ED Chest Pain, Noncardiac Discharge Orders/Prescriptions Prescriptions: New cefdinir 300 mg capsule 300 mg PO BID Qty: 20 RF: 0 Xarelto 20 mg tablet 20 mg PO DAILY Qty: 30 RF: 0 amlodipine 2.5 mg tablet 2.5 mg PO DAILY Qty: 30 RF: 0 Continued bumetanide 0.5 MG tablet 1 - 2 mg PO DAILY PRN (Reason: Swelling) RF: 0 oxycodone-acetaminophen 1 EACH tablet 1 ea PO TID PRN PRN (Reason: Pain/Inflammation) RF: 0 metformin 500 MG tablet 1,000 mg PO BID RF: 0 fluticasone propionate 1 SPRAY spray,suspension 1 spray NASAL DAILY RF: 0 atorvastatin 40 MG tablet 40 mg PO QHS RF: 0 belladonna alkaloids-opium 16.2-60 mg suppository 1 supp SC BID PRN (Reason: pain) 4 Days Qty: 8 RF: 0 loratadine 10 mg tablet 10 mg PO DAILY RF: 0 atenolol 50 mg tablet 50 mg PO DAILY Qty: 30 RF: 11 Discontinued alprazolam 0.5 MG tablet 0.5 mg PO QHS PRN (Reason: anxiety) RF: 0 cholecalciferol (vitamin D3) 1,250 MCG capsule 50,000 unit PO MOFR RF: 0 nitrofurantoin monohyd/m-cryst [Macrobid] 100 mg Capsule 100 mg PO BID RF: 0 Referrals / Follow Up: Luanne Aquino MD [Primary Care Provider] - Within 2 Weeks Disposition Disposition (needs filled in before D/C Order can be placed): Home, Self Care Documented by User: Dr. Joann Ortega MD 10/09/20 11:27 Providers Date of Admission: 10/06/20 Date of Discharge: 10/09/20 Reason For Visit: AMS Medications at Discharge Home Medications bumetanide 1 - 2 mg PO DAILY PRN 05/25/19 fluticasone propionate 1 spray NASAL DAILY 05/25/19 metformin 1,000 mg PO BID 05/25/19 oxycodone-acetaminophen 1 ea PO TID PRN PRN 05/25/19 atorvastatin 40 mg PO QHS 12/11/19 atenolol 50 mg tablet 50 mg PO DAILY #30 tab 05/30/20 belladonna alkaloids-opium 1 supp SC BID PRN 4 Days #8 ea 10/02/20 loratadine 10 mg PO DAILY 10/06/20 cefdinir 300 mg PO BID #20 cap 10/08/20 rivaroxaban [Xarelto] 20 mg PO DAILY #30 tab 10/08/20 amlodipine 2.5 mg PO DAILY #30 tab 10/09/20 ABG / Lab / Microbiology Data Result Diagrams: 10/08/20 06:30 10/08/20 06:30 Discharge Plan Admission Admit Date/Time: 10/06/20 19:00 Primary Reason for Your Visit: Confusion and weakness Attending Provider: Joann Ortega Primary Care Provider: Luanne Aquino Instructions Patient Instructions: ED Chest Pain, Noncardiac Discharge Orders/Prescriptions Prescriptions: New cefdinir 300 mg capsule 300 mg PO BID Qty: 20 RF: 0 Xarelto 20 mg tablet 20 mg PO DAILY Qty: 30 RF: 0 amlodipine 2.5 mg tablet 2.5 mg PO DAILY Qty: 30 RF: 0 Continued bumetanide 0.5 MG tablet 1 - 2 mg PO DAILY PRN (Reason: Swelling) RF: 0 oxycodone-acetaminophen 1 EACH tablet 1 ea PO TID PRN PRN (Reason: Pain/Inflammation) RF: 0 metformin 500 MG tablet 1,000 mg PO BID RF: 0 fluticasone propionate 1 SPRAY spray,suspension 1 spray NASAL DAILY RF: 0 atorvastatin 40 MG tablet 40 mg PO QHS RF: 0 belladonna alkaloids-opium 16.2-60 mg suppository 1 supp SC BID PRN (Reason: pain) 4 Days Qty: 8 RF: 0 loratadine 10 mg tablet 10 mg PO DAILY RF: 0 atenolol 50 mg tablet 50 mg PO DAILY Qty: 30 RF: 11 Discontinued alprazolam 0.5 MG tablet 0.5 mg PO QHS PRN (Reason: anxiety) RF: 0 cholecalciferol (vitamin D3) 1,250 MCG capsule 50,000 unit PO MOFR RF: 0 nitrofurantoin monohyd/m-cryst [Macrobid] 100 mg Capsule 100 mg PO BID RF: 0 Referrals / Follow Up: Luanne Aquino MD [Primary Care Provider] - Within 2 Weeks Disposition Disposition (needs filled in before D/C Order can be placed): Home, Self Care Charges/Coding Addendum Addendum: This patient was seen in conjunction with RUBEN Kimble. I have independently interviewed and examined the patient and reviewed pertinent historical, laboratory, and other data. Please refer to RUBEN Kimble's note for his patient's presentation, findings, and recommendations. I have reviewed and his note and concur with his documentation 79-year-old female with multiple comorbid conditions who was admitted with confusion. Patient was being treated outpatient for urinary tract infection. She was admitted with some diarrhea, feeling weak with some vomiting. She had fallen on the day of admission. She used her med alert. She was brought in by the EMS. Her vitals were stable. Her admitting blood work was significant for lactic acid of 3.0, magnesium 1.9, calcium 10.5. Her vitamin D levels were 72.7. Her UA was suggestive of UTI. Urine culture showed no growth. She was admitted to the [facility] floor and managed on IV ceftriaxone. She had worsening confusion the first 2 days of her stay. She however improved and was alert oriented the next day. Her blood pressure was uncontrolled. She was started on amlodipine which is new. She was discharged home on cefdinir for 1 week for acute complicated UTI metabolic/infectious encephalopathy. Patient was also started on Xarelto for paroxysmal atrial fibrillation with [id number] score more than 2. She was told to hold off on taking vitamin D and follow-up with her primary care doctor within 2 weeks for repeat blood work. This was communicated also to the daughter at discharge. Physical Exam: Gen: Comfortable, alert, oriented x 3, not pale, not jaundiced CVS:HS I +II, regular, no murmurs RESP: Diminished at lung bases GI: BS present and normal, soft, nontender, no palpable organs EXT:No edema Visit Charges Inpatient E&M: 84832 Disch Hosp
[2020-10-08 14:25] VITALS: BP 173/79; PULSE 66; RESP 20; TEMP 36.9; O2SAT 97
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
[2020-10-08 16:51] LABS: Bedside Glucose 242 mg/dL (70-110)
[2020-10-08] MEDS: Rivaroxaban 20 MG Tablet PO (17:43)
[2020-10-08 21:45] VITALS: BP 160/70; PULSE 71; RESP 18; TEMP 36.5; O2SAT 96
[2020-10-08] MEDS: Atorvastatin Calcium 40 MG Tablet PO (21:52)
[2020-10-08] MEDS: Acetaminophen 325 MG Tablet 650 MG PO (21:57)
[2020-10-08 22:01] LABS: Bedside Glucose 242 mg/dL (70-110)
[2020-10-09] MEDS: guaiFENesin 10 ML UDC (200MG/10ML) PO (02:13)
[2020-10-09 02:47] VITALS: BP 173/92; PULSE 74; RESP 16; TEMP 36.4; O2SAT 96
[2020-10-09] MEDS: Insulin Lispro 100 UNIT/ML INSULN.PEN SC (05:06)
[2020-10-09 05:11] LABS: Bedside Glucose 218 mg/dL (70-110)
[2020-10-09 08:00] VITALS: PULSE 83; O2SAT 96
[2020-10-09 08:15] VITALS: BP 166/94; PULSE 83; RESP 20; TEMP 36.6; O2SAT 96
--- NOTE | 2020-10-09 09:32 | PCM.DC ---
Discharge Instructions Diet Discharge Diet: No restrictions Activity Weight Bearing Status: Weight bearing as tolerated Dressing / Incision Call your doctor if you observe: Fever of 101 or Higher, Numbness or Tingling, Shortness of breath, Dizziness, Chest pain, Increased palpitations (irregular heartbeat) and Calf discomfort Follow Up Care Please Follow Up With: Primary care provider Test Results: Test results from this visit will be discussed in further detail at your follow-up appointment, if applicable. Discharge Plan Admission Admit Date/Time: 10/06/20 19:00 Primary Reason for Your Visit: Confusion and weakness Attending Provider: Joann Ortega Primary Care Provider: Luanne Aquino Instructions Patient Instructions: ED Chest Pain, Noncardiac Discharge Orders/Prescriptions Prescriptions: New cefdinir 300 mg capsule 300 mg PO BID Qty: 20 RF: 0 Xarelto 20 mg tablet 20 mg PO DAILY Qty: 30 RF: 0 amlodipine 2.5 mg tablet 2.5 mg PO DAILY Qty: 30 RF: 0 Continued bumetanide 0.5 MG tablet 1 - 2 mg PO DAILY PRN (Reason: Swelling) RF: 0 oxycodone-acetaminophen 1 EACH tablet 1 ea PO TID PRN PRN (Reason: Pain/Inflammation) RF: 0 metformin 500 MG tablet 1,000 mg PO BID RF: 0 cholecalciferol (vitamin D3) 1,250 MCG capsule 50,000 unit PO MOFR RF: 0 fluticasone propionate 1 SPRAY spray,suspension 1 spray NASAL DAILY RF: 0 atorvastatin 40 MG tablet 40 mg PO QHS RF: 0 belladonna alkaloids-opium 16.2-60 mg suppository 1 supp [place] BID PRN (Reason: pain) 4 Days Qty: 8 RF: 0 loratadine 10 mg tablet 10 mg PO DAILY RF: 0 atenolol 50 mg tablet 50 mg PO DAILY Qty: 30 RF: 11 Discontinued alprazolam 0.5 MG tablet 0.5 mg PO QHS PRN (Reason: anxiety) RF: 0 nitrofurantoin monohyd/m-cryst [Macrobid] 100 mg Capsule 100 mg PO BID RF: 0 Referrals / Follow Up: Luanne Aquino MD [Primary Care Provider] - Within 2 Weeks Disposition Disposition (needs filled in before D/C Order can be placed): Home, Self Care
[2020-10-09 09:36] VITALS: BP 150/80; PULSE 75; RESP 20; TEMP 36.6; O2SAT 94
[2020-10-09] MEDS: Menthol/Lanolin/Calamine/Znox 113 GM Tube 1 APPLIC TOPICAL (10:37)
[2020-10-09] MEDS: Nystatin Powder 15gm Bottle 1 APPLIC TOPICAL (10:39)
[2020-10-09] MEDS: Fluticasone 0.05% 1 SPRAY NASAL.SRY NASAL (10:39)
[2020-10-09] MEDS: Atenolol 50 MG Tablet PO (10:41)
[2020-10-09] MEDS: amLODIPine 2.5 MG Tablet PO (10:45)
--- NOTE | 2020-10-09 11:39 | PCM.DC.SUM ---
Documented by User: Antonio MIRANDA 10/09/20 11:43 Providers Date of Admission: 10/06/20 Primary Care Physician: Dr. Luanne Aquino MD Reason For Visit: AMS Diagnosis Discharge Diagnosis (1) Acute UTI: Status: Acute Code(s): N39.0 - Urinary tract infection, site not specified (2) History of DVT of lower extremity: Status: Resolved Code(s): Z86.718 - Personal history of other venous thrombosis and embolism (3) Essential (primary) hypertension: Status: Chronic Code(s): I10 - Essential (primary) hypertension (4) Paroxysmal atrial fibrillation: Status: Chronic Code(s): I48.0 - Paroxysmal atrial fibrillation (5) Hyperlipidemia: Status: Chronic Code(s): E78.5 - Hyperlipidemia, unspecified Qualifiers: Hyperlipidemia type: pure hypercholesterolemia Qualified Code(s): E78.00 - Pure hypercholesterolemia, unspecified; E78.0 - Pure hypercholesterolemia Medications at Discharge Home Medications bumetanide 1 - 2 mg PO DAILY PRN 05/25/19 fluticasone propionate 1 spray NASAL DAILY 05/25/19 metformin 1,000 mg PO BID 05/25/19 oxycodone-acetaminophen 1 ea PO TID PRN PRN 05/25/19 atorvastatin 40 mg PO QHS 12/11/19 atenolol 50 mg tablet 50 mg PO DAILY #30 tab 05/30/20 belladonna alkaloids-opium 1 supp ID BID PRN 4 Days #8 ea 10/02/20 loratadine 10 mg PO DAILY 10/06/20 cefdinir 300 mg PO BID #20 cap 10/08/20 rivaroxaban [Xarelto] 20 mg PO DAILY #30 tab 10/08/20 amlodipine 2.5 mg PO DAILY #30 tab 10/09/20 Hospital Course Summary of Care Provided Minutes Spent on Discharge: 35 Hospital Course: Disposition: Patient to be discharged home with family, no home health care needs or additional therapies identified. 1) Acute encephalopathy secondary to acute UTI Resolved. Urine culture demonstrates no growth. CBC does not demonstrate a leukocytosis. Vital signs are stable and patient is afebrile. Lactate is now within normal limits. No evidence of endorgan damage. Brain CT and chest x-ray obtained and are unremarkable. Plan; continue cefdinir 300 mg p.o. twice daily x10 days, follow-up with primary care provider within the next 2 weeks, alprazolam discontinued until further follow-up with primary care provider due to family reports of chronic confusion. 2) PAF Patient is on atenolol and diltiazem for rate control. Patient is not on any anticoagulation. [id number] score is 7, high risk for stroke. Initiate Xarelto 20 mg p.o. daily at dinner. 3) DM2 Hold Metformin due to lactic acidosis. Accu-Cheks with sliding scale insulin ordered. 4) Hx of DVT See #2. 5) hyperlipidemia Continue atorvastatin. 6) HTN Has been elevated throughout admission despite current prescription of atenolol. Amlodipine was added to patient's home BP regimen. Recommend follow-up with primary care provider for further medication adjustment. Patient seen by Antonio Gallagher PA-C, under the supervision of Dr. Ortega. Physical Exam Narrative Patient is a 79-year-old female comfortably resting in the chair, alert and orient x3. Patient reports resolution of her confusion from admission, family is in agreement about patient presentation. Denies chest pain, shortness of breath, palpitations, hemoptysis, sputum production, fever, chills, N/V/D. Const alert, oriented x3 and no apparent distress HEENT normocephalic, head/scalp atraumatic and hearing grossly normal bilaterally Eyes PERRL, EOMs intact bilaterally and conjunctivae normal Neck no lymphadenopathy, supple and no JVD Resp normal respiratory effort, no retractions, no use of accessory muscles and clear to auscultation bilaterally Cardio regular rate, regular rhythm, no murmurs and no JVD GI normal to inspection, nondistended, normoactive bowel sounds, soft to palpation and non-tender Extremity normal to inspection, full ROM and no clubbing, cyanosis or edema Skin no rashes or lesions noted, no wounds and skin turgor normal Neuro CN's II-XII intact bilaterally Psych affect normal Weight / BMI Weight Weight: 214 lb 15.211 oz Body Mass Index (BMI) 38.4 ABG / Lab / Microbiology Data Result Diagrams: 10/08/20 06:30 10/08/20 06:30 Laboratory: Laboratory Results - last 24 hr 10/08/20 11:30: POC Glucose 313 H 10/08/20 16:43: POC Glucose 242 H 10/08/20 21:50: POC Glucose 242 H 10/09/20 05:05: POC Glucose 218 H Microbiology: Microbiology 10/06/20 11:00 Urine, Random Urine Culture - Preliminary Culture exhibits no growth. 10/06/20 11:32 Mucosa - Nose SARS-CoV-2 Antigen (Rapid) - Final D/C Instructions Discharge Diet: No restrictions Weight Bearing Status: Weight bearing as tolerated Call your doctor if you observe: Fever of 101 or Higher, Numbness or Tingling, Shortness of breath, Dizziness, Chest pain, Increased palpitations (irregular heartbeat) and Calf discomfort Please Follow Up With: Primary care provider When: Within the next two weeks. Meaningful Use Info Meaningful Use Diagnoses (Choose all that apply): None applicable Discharge Plan Admission Admit Date/Time: 10/06/20 19:00 Primary Reason for Your Visit: Confusion and weakness Attending Provider: Joann Ortega Primary Care Provider: Luanne Aquino Instructions Patient Instructions: ED Chest Pain, Noncardiac Discharge Orders/Prescriptions Prescriptions: New cefdinir 300 mg capsule 300 mg PO BID Qty: 20 RF: 0 Xarelto 20 mg tablet 20 mg PO DAILY Qty: 30 RF: 0 amlodipine 2.5 mg tablet 2.5 mg PO DAILY Qty: 30 RF: 0 Continued bumetanide 0.5 MG tablet 1 - 2 mg PO DAILY PRN (Reason: Swelling) RF: 0 oxycodone-acetaminophen 1 EACH tablet 1 ea PO TID PRN PRN (Reason: Pain/Inflammation) RF: 0 metformin 500 MG tablet 1,000 mg PO BID RF: 0 fluticasone propionate 1 SPRAY spray,suspension 1 spray NASAL DAILY RF: 0 atorvastatin 40 MG tablet 40 mg PO QHS RF: 0 belladonna alkaloids-opium 16.2-60 mg suppository 1 supp ID BID PRN (Reason: pain) 4 Days Qty: 8 RF: 0 loratadine 10 mg tablet 10 mg PO DAILY RF: 0 atenolol 50 mg tablet 50 mg PO DAILY Qty: 30 RF: 11 Discontinued alprazolam 0.5 MG tablet 0.5 mg PO QHS PRN (Reason: anxiety) RF: 0 cholecalciferol (vitamin D3) 1,250 MCG capsule 50,000 unit PO MOFR RF: 0 nitrofurantoin monohyd/m-cryst [Macrobid] 100 mg Capsule 100 mg PO BID RF: 0 Referrals / Follow Up: Luanne Aquino MD [Primary Care Provider] - Within 2 Weeks Disposition Disposition (needs filled in before D/C Order can be placed): Home, Self Care Documented by User: Dr. Joann Ortega MD 10/09/20 12:00 Providers Date of Admission: 10/06/20 Reason For Visit: AMS Medications at Discharge Home Medications bumetanide 1 - 2 mg PO DAILY PRN 05/25/19 fluticasone propionate 1 spray NASAL DAILY 05/25/19 metformin 1,000 mg PO BID 05/25/19 oxycodone-acetaminophen 1 ea PO TID PRN PRN 05/25/19 atorvastatin 40 mg PO QHS 12/11/19 atenolol 50 mg tablet 50 mg PO DAILY #30 tab 05/30/20 belladonna alkaloids-opium 1 supp ID BID PRN 4 Days #8 ea 10/02/20 loratadine 10 mg PO DAILY 10/06/20 cefdinir 300 mg PO BID #20 cap 10/08/20 rivaroxaban [Xarelto] 20 mg PO DAILY #30 tab 10/08/20 amlodipine 2.5 mg PO DAILY #30 tab 10/09/20 ABG / Lab / Microbiology Data Result Diagrams: 10/08/20 06:30 10/08/20 06:30 Discharge Plan Admission Admit Date/Time: 10/06/20 19:00 Primary Reason for Your Visit: Confusion and weakness Attending Provider: Joann Ortega Primary Care Provider: Luanne Aquino Instructions Patient Instructions: ED Chest Pain, Noncardiac Discharge Orders/Prescriptions Prescriptions: New cefdinir 300 mg capsule 300 mg PO BID Qty: 20 RF: 0 Xarelto 20 mg tablet 20 mg PO DAILY Qty: 30 RF: 0 amlodipine 2.5 mg tablet 2.5 mg PO DAILY Qty: 30 RF: 0 Continued bumetanide 0.5 MG tablet 1 - 2 mg PO DAILY PRN (Reason: Swelling) RF: 0 oxycodone-acetaminophen 1 EACH tablet 1 ea PO TID PRN PRN (Reason: Pain/Inflammation) RF: 0 metformin 500 MG tablet 1,000 mg PO BID RF: 0 fluticasone propionate 1 SPRAY spray,suspension 1 spray NASAL DAILY RF: 0 atorvastatin 40 MG tablet 40 mg PO QHS RF: 0 belladonna alkaloids-opium 16.2-60 mg suppository 1 supp ID BID PRN (Reason: pain) 4 Days Qty: 8 RF: 0 loratadine 10 mg tablet 10 mg PO DAILY RF: 0 atenolol 50 mg tablet 50 mg PO DAILY Qty: 30 RF: 11 Discontinued alprazolam 0.5 MG tablet 0.5 mg PO QHS PRN (Reason: anxiety) RF: 0 cholecalciferol (vitamin D3) 1,250 MCG capsule 50,000 unit PO MOFR RF: 0 nitrofurantoin monohyd/m-cryst [Macrobid] 100 mg Capsule 100 mg PO BID RF: 0 Referrals / Follow Up: Luanne Aquino MD [Primary Care Provider] - Within 2 Weeks Disposition Disposition (needs filled in before D/C Order can be placed): Home, Self Care Charges/Coding Addendum Addendum: see previous discharge
--- NOTE | 2020-10-09 12:18 | PN.HOSP_ITS ---
Documented by User: Antonio MIRANDA 10/09/20 12:24 Subjective Subjective Subjective presentation for 10/08. Patient is a 79-year-old female currently resting in bed, alert and orient x3. Patient's mentation has greatly improved from the past couple days. Denies chest pain, shortness of breath, palpitations, hemoptysis, sputum production, fever, chills, N/V/D. Objective Data Objective Data Vital Signs: Vital Signs Temp Pulse Resp BP Pulse Ox 97.9 F 75 20 H 150/80 H 94 10/09/20 09:36 10/09/20 09:36 10/09/20 09:36 10/09/20 09:36 10/09/20 09:36 Oxygen Delivery Method Room Air Weight: 214 lb 15.211 oz Body Mass Index (BMI) 38.4 Intake & Output: Intake and Output for Last 24 Hours 10/07/20 10/08/20 10/09/20 23:59 23:59 23:59 Intake Total 2331.50 / 2331.50 2511.67 / 2911.67 600 / 600 Output Total 800 / 1200 1300 / 2200 1300 / 1300 Balance 1531.50 / 1131.50 1211.67 / 711.67 -700 / -700 Lab / Micro Data Result Diagrams: 10/08/20 06:30 10/08/20 06:30 Labs: Laboratory Results - last 24 hr 10/08/20 16:43: POC Glucose 242 H 10/08/20 21:50: POC Glucose 242 H 10/09/20 05:05: POC Glucose 218 H Micro: Microbiology 10/06/20 11:00 Urine, Random Urine Culture - Preliminary Yeast Like Organism 10/06/20 11:32 Mucosa - Nose SARS-CoV-2 Antigen (Rapid) - Final Rhythm Strip Rhythm Strip: Sinus Rhythm Rate: 63 Ectopy: PVC(s) Physical Exam Const alert, oriented x3 and no apparent distress HEENT head/scalp atraumatic and moist oral mucous membranes Head and Scalp: normocephalic Eyes EOMs intact bilaterally and conjunctivae normal Neck no lymphadenopathy, supple and no JVD Resp normal respiratory effort, no retractions, no use of accessory muscles and clear to auscultation bilaterally Cardio regular rate, regular rhythm, no murmurs and no JVD GI normal to inspection, nondistended, normoactive bowel sounds, soft to palpation and non-tender Extremity normal to inspection, full ROM and no clubbing, cyanosis or edema Skin no rashes or lesions noted, no wounds, skin turgor normal and no jaundice Neuro CN's II-XII intact bilaterally Psych affect normal Assessment & Plan Assessment/Plan (1) Acute UTI: PLAN: Day 3: This progress note is being backdated for 10/08 due to patient not being discharged as initially planned. Initial plan was for patient to be discharged, however family felt that patient was not quite stable and ready to return home yet. Discharge was delayed after this provider was off of shift. This progress note was dictated on 10/09 for 10/08. 1) Acute encephalopathy secondary to acute UTI Patient presentation has improved in regards to her confusion. Urine cultures demonstrate no growth. White count is within normal meds lactate is now within normal limits. No evidence of endorgan damage. Brain CT and chest x-ray obtained and are unremarkable. Plan; remain admitted to [facility], continue Rocephin, PT/OT eval ordered and pending. 2) PAF Patient is on atenolol and diltiazem for rate control. Patient is not on any anticoagulation. [id number] score is 7, high risk for stroke. We will place the patient on Xarelto on discharge. 3) DM2 Hold Metformin due to lactic acidosis. Accu-Cheks with sliding scale insulin ordered. 4) Hx of DVT As above. 5) hyperlipidemia Continue atorvastatin. DVT Prophylaxis - Lovenox Patient seen by Antonio Gallagher PA-C, under the supervision of Dr. Ortega. Documented by User: Dr. Joann Ortega MD 10/09/20 12:31 Objective Data Lab / Micro Data Result Diagrams: 10/08/20 06:30 10/08/20 06:30 Charges/Coding Addendum Addendum: This patient was seen in conjunction with RUBEN Kimble. I have in dependently interviewed and examined the patient and reviewed pertinent historical, laboratory, and other data. Please refer to RUBEN Kimble's note for his patient's presentation, findings, and recommendations. I have reviewed and his note and concur with his documentation Patient was seen and examined. Patient appeared more calm. Alert oriented x3. Physical Exam: Gen: Comfortable, alert, oriented x3, not pale, not jaundiced CVS:HS I +II, regular, no murmurs RESP: Diminished at lung bases GI: BS present and normal, soft, nontender, no palpable organs EXT:No edema ASSESSMENT: 1. Acute metabolic/infective encephalopathy secondary to UTI 2. Hypomagnesemia 3. Hypercalcemia 4. Hyperglycemia 5. Type II DM 6. Paroxysmal atrial fibrillation Plan: Continue on IV ceftriaxone Will discharge on cefdinir Multi Select Codes Visit Charges Visit Charges: 96541 Subs Hosp L2
== END 2020-10-09 11:16 | disposition home or self-care (01) | DRG 689 ==
LOC: ED 14:10 → MS3 14:34
PROVIDERS: Nurse Practitioner Family; Physician Assistant; Admitting Provider Internal Medicine; Emergency Provider Emergency Medicine; PCP Internal Medicine; Visit Provider Internal Medicine
DX: N39.0 Urinary tract infection, site not specified (principal); G93.41 Metabolic encephalopathy; E87.2 Acidosis; G93.49 Other encephalopathy; E11.65 Type 2 diabetes mellitus with hyperglycemia; E78.00 Pure hypercholesterolemia, unspecified; I10 Essential (primary) hypertension; E78.5 Hyperlipidemia, unspecified; I48.0 Paroxysmal atrial fibrillation; R62.7 Adult failure to thrive; E83.42 Hypomagnesemia; E83.52 Hypercalcemia; W19.XXXA Unspecified fall, initial encounter; Z87.440 Personal history of urinary (tract) infections; Z86.718 Personal history of other venous thrombosis and embolism; Z79.84 Long term (current) use of oral hypoglycemic drugs; Z79.01 Long term (current) use of anticoagulants; Z82.49 Family history of ischemic heart disease and other diseases of the circulatory system; Z82.5 Family history of asthma and other chronic lower respiratory diseases; Z90.49 Acquired absence of other specified parts of digestive tract; Z90.710 Acquired absence of both cervix and uterus
CPT/HCPCS: 36415; 70450; 71045; 80048; 80053; 81001; 82306; 82962; 83605; 83735; 85025; 87086; 87088; 87426; 93005; 97162; 97166; 99285; J7030; J7050; P9612; A4216

== ENCOUNTER 2020-10-15 08:58 | Emergency (ER) | payer MEDICARE, SELFPAY ==
[2020-10-15 08:58] VITALS: BP 143/76; PULSE 62; RESP 16; TEMP 37; O2SAT 95; BMI 37.2
[2020-10-15 09:46] VITALS: BP 143/76; PULSE 62; RESP 16; TEMP 37; O2SAT 95
--- NOTE | 2020-10-15 10:13 | EDS_ITS ---
HPI HPI - Female History of Present Illness Chief Complaint: Complaint Informant: patient and family Narrative Narrative: Patient has been having recurrent problems with UTIs. She has been treated with multiple outpatient antibiotics. She has had recent admission. She was discharged on the of this month on cefdinir. She was taking her last dose this morning. She has now started with dysuria frequency suprapubic cramping with urination again. The urine is now getting cloudy and malodorous this morning. She does not yet have confusion but her daughter states she is starting to respond just a little bit slower and this concerns her. She does feel a little bit more tired today. She is also starting to develop nausea but has not yet vomited. She went through a similar process evidently in 2019 with multiple admissions. Patient did fill and has been taking her cefdinir. They showed me the antibiotics. [facility] Medical History Adult failure to thrive Anxiety DDD (degenerative disc disease) DVT (deep venous thrombosis) Essential (primary) hypertension History of DVT of lower extremity (05/2017) Hyperlipidemia Obesity Osteoarthritis Paroxysmal atrial fibrillation Segmental and somatic dysfunction of lumbar region Segmental and somatic dysfunction of pelvic region Segmental and somatic dysfunction of sacral region Segmental and somatic dysfunction of thoracic region Small bowel obstruction Type 2 diabetes mellitus whipple surgery Home Medications bumetanide 1 - 2 mg PO DAILY PRN 05/25/19 [History Last Taken Unknown] fluticasone propionate 1 spray NASAL DAILY 05/25/19 [History Last Taken Unknown] metformin 1,000 mg PO BID 05/25/19 [History Last Taken 10/06/20] oxycodone-acetaminophen 1 ea PO TID PRN PRN 05/25/19 [History Last Taken 10/05/20] atorvastatin 40 mg PO QHS 12/11/19 [History Last Taken 10/06/20] atenolol 50 mg tablet 50 mg PO DAILY #30 tab 05/30/20 [Rx Last Taken 10/06/20] belladonna alkaloids-opium 1 supp [place] BID PRN 4 Days #8 ea 10/02/20 [Rx Last Taken 10/06/20] loratadine 10 mg PO DAILY 10/06/20 [History Last Taken 10/06/20] cefdinir 300 mg PO BID #20 cap 10/08/20 [Rx Last Taken Unknown] rivaroxaban [Xarelto] 20 mg PO DAILY #30 tab 10/08/20 [Rx Last Taken Unknown] amlodipine 2.5 mg PO DAILY #30 tab 10/09/20 [Rx Last Taken Unknown] sulfamethoxazole-trimethoprim [Bactrim DS] 1 tab PO BID #14 tab 10/15/20 [Rx Last Taken Unknown] Allergy/AdvReac Type Severity Reaction Status Date / Time duloxetine [From Cymbalta] Allergy Other Verified 10/15/20 09:02 ramelteon [From Rozerem] Allergy Other Verified 10/15/20 09:02 bupropion AdvReac Other Verified 10/15/20 09:02 bupropion HCl AdvReac Other Verified 10/15/20 09:02 [From Wellbutrin] dexfenfluramine HCl AdvReac Unknown Verified 10/15/20 09:02 [From Redux] hydrochlorothiazide AdvReac Other Verified 10/15/20 09:02 ketorolac tromethamine AdvReac Itching Verified 10/15/20 09:02 [From Toradol] oxaprozin [From Daypro] AdvReac Other Verified 10/15/20 09:02 Family History Mother Myocardial infarction Father Asthma Surgical History H/O medial meniscus repair of right knee History of bilateral carpal tunnel release History of bladder suspension procedure History of bladder suspension procedure History of bowel resection History of hysterectomy History of hysterectomy Hx of cholecystectomy S/P cholecystectomy sigmoid colon removed vaginal wall repaired Social History Smoking Status: Never smoker second hand exposure: No alcohol intake: current alcohol intake frequency: holidays/special occasions only substance use type: does not use caffeine: Yes what type of physical activity do you participate in: none frequency: does not exercise seatbelt use: always ROS ROS ED Constitutional Constitutional ED: Denies chills or fever(s) Eyes Eyes: Denies blurry vision ENT ENT ED: Denies rhinorrhea Cardiovascular Cardiovascular: Denies chest pain or palpitations Respiratory/Chest Respiratory/Chest: Denies cough or dyspnea Gastrointestinal Gastrointestinal: Reports abdominal pain and other Details: Suprapubic cramping with urination. ; Denies constipation, diarrhea, melena, nausea or vomiting Genitourinary Genitourinary ED: Reports dysuria and urinary frequency Musculoskeletal Musculoskeletal: Denies arthralgias or myalgias Integumentary Denies rash Neurologic Neurologic: Denies headache(s) Endocrine Endocrinology: Denies polydipsia Hematologic/Lymphatic Hematologic/Lymphatic: Reports easy bleeding and easy bruising Allergic/Immunologic Allergic/Immunologic ED: Denies urticaria EXAM Physical Exam Const Vital Signs: 10/15/20 08:58 10/15/20 09:46 10/15/20 12:00 Temperature 98.6 F 98.6 F 98.4 F Temperature Source Oral Oral Oral Pulse Rate 62 62 54 L Respiratory Rate 16 16 18 Blood Pressure 143/76 H 143/76 H 137/65 H Blood Pressure Mean 98 98 89 Pulse Ox 95 95 98 Oxygen Delivery Method Room Air Room Air 10/15/20 13:00 Temperature 97.7 F L Temperature Source Oral Pulse Rate 55 L Respiratory Rate 16 Blood Pressure 135/51 H Blood Pressure Mean 79 Pulse Ox 96 Oxygen Delivery Method Room Air Positive well nourished and well developed General Appearance ED: well developed and NAD HEENT Reports moist mucous membranes Eyes General Eye ED: Negative for pale conjunctiva Neck no JVD Resp normal respiratory effort and clear to auscultation bilaterally Cardio regular rate and regular rhythm GI normal to inspection, nondistended, normoactive bowel sounds and soft to palpation GI Narrative: Mild suprapubic tenderness only with deep palpation. No tenderness of the left or right lower quadrant. no CVA tenderness Back/Spine no CVA tenderness Extremity normal to inspection Neuro oriented x3 Sensorium / Orientation: alert Psych mental status grossly normal Skin no rashes or lesions noted MDM MDM MDM Narrative Medical decision making narrative: Patient's labs are normal. White count is not elevated. Glucose is mildly elevated. Creatinine is normal. Urine does show signs of infection again. Greater than 100 white cells and cloudy. My concern is that this patient was seen at urgent care center have been here. She came back was admitted for change in mental status with a UTI. She has now been home and is just finishing her antibiotics. She is actually finishing her seventh day but she does have 10 days total so she has 3 days left. She is now starting to have urinary symptoms again. I called for possible admission for worsening symptoms and failure of outpatient therapy. I talked to the hospitalist. They feel there really is no criteria for admission. We did pur amee a little further into a CAT scan to make sure we did not see any sign of obstruction. To urinary flow as we had discussed that this would indicate need for admission. CT did not show anything acute. I explained this to the patient and her daughter. Her daughter is going to stay with her tonight to make sure there is no worsening. She will bring her back if there is any fevers, confusion, weakness or worsening symptoms. The last 2 cultures the patient had did show sensitivity to Bactrim so we will try this. Certainly this can cause some problems in the elderly but we are limited on what we can treat her with. She is on cefdinir. She was already on macrodantoin. She has cultures that are resistant to Cipro and floraquinolones. Lab Data Attestation: I reviewed the patient's lab results. Labs: Laboratory Results - last 24 hr 10/15/20 10/15/20 10/15/20 10:09 10:25 10:25 WBC 10.1 RBC 4.70 Hgb 14.1 Hct 42.7 MCV 90.9 MCH 30.0 MCHC 33.0 RDW Std Deviation 42.7 RDW Coeff of Viviane 12.8 Plt Count 209 MPV 10.3 Immature Gran % (Auto) 0.400 Neut % (Auto) 62.2 Lymph % (Auto) 30.1 [place] % (Auto) 5.8 Eos % (Auto) 1.0 Baso % (Auto) 0.5 Absolute Neuts (auto) 6.3 Absolute Lymphs (auto) 3.03 Nucleated RBC % 0 Sodium 136 Potassium 4.0 Chloride 101 Carbon Dioxide 27.0 Anion Gap 8 BUN 19 H Creatinine 0.75 Estim Creat Clear Calc 38.35 Est GFR (MDRD) Af Amer 96 Est GFR (MDRD) Non-Af 79 BUN/Creatinine Ratio 25.3 H Glucose 184 H Lactic Acid Calcium 10.5 H Urine Color Yellow Urine Clarity Turbid Urine pH 5.0 Ur Specific [place] 1.020 U Specif Grav (Refrac) Urine Protein 100 H Urine Glucose (UA) 1000 H Urine Ketones Negative Urine Occult Blood 250 H Urine Nitrite Negative Urine Bilirubin Negative Urine Urobilinogen Normal Ur Leukocyte Esterase 500 H Urine RBC 0 SEEN Urine WBC >100 SEEN Ur Squamous Epith Cells 0 SEEN Ur Transition Epith Cell Ur Renal Epithelial Cell Calcium Oxalate Crystal Uric Acid Crystals Triple Phos Crystals Other Crystals Amorphous Sediment Urine Bacteria 2+ Hyaline Casts Fine Granular Casts Coarse Granular Casts Waxy Casts RBC Casts WBC Casts Urine Mucus 0 SEEN Urine Trichomonas Urine Yeast 10/15/20 10/15/20 10:25 10:25 WBC RBC Hgb Hct MCV MCH MCHC RDW Std Deviation RDW Coeff of Viviane Plt Count MPV Immature Gran % (Auto) Neut % (Auto) Lymph % (Auto) [place] % (Auto) Eos % (Auto) Baso % (Auto) Absolute Neuts (auto) Absolute Lymphs (auto) Nucleated RBC % Sodium Potassium Chloride Carbon Dioxide Anion Gap BUN Creatinine Estim Creat Clear Calc Est GFR (MDRD) Af Amer Est GFR (MDRD) Non-Af BUN/Creatinine Ratio Glucose Lactic Acid 2.0 Calcium Urine Color Cancelled Urine Clarity Cancelled Urine pH Cancelled Ur Specific [place] Cancelled U Specif Grav (Refrac) Cancelled Urine Protein Cancelled Urine Glucose (UA) Cancelled Urine Ketones Cancelled Urine Occult Blood Cancelled Urine Nitrite Cancelled Urine Bilirubin Cancelled Urine Urobilinogen Cancelled Ur Leukocyte Esterase Cancelled Urine RBC Cancelled Urine WBC Cancelled Ur Squamous Epith Cells Cancelled Ur Transition Epith Cell Cancelled Ur Renal Epithelial Cell Cancelled Calcium Oxalate Crystal Cancelled Uric Acid Crystals Cancelled Triple Phos Crystals Cancelled Other Crystals Cancelled Amorphous Sediment Cancelled Urine Bacteria Cancelled Hyaline Casts Cancelled Fine Granular Casts Cancelled Coarse Granular Casts Cancelled Waxy Casts Cancelled RBC Casts Cancelled WBC Casts Cancelled Urine Mucus Cancelled Urine Trichomonas Cancelled Urine Yeast Cancelled Radiography Diagnostic Testing: Radiology Impression Abdomen/Pelvis CT 10/15/20 12:38 IMPRESSION: Moderate stool in the colon which may represent early constipation. No other acute abnormalities in the abdomen or pelvis. Individualized dose optimization techniques were used for this CT. at 1348 Reported and signed by: Sharad Ang MD Electronically Signed: Sharad Ang MD at 13:46 EDT Tel , Service support , Discharge Plan Triage Chief Complaint: Complaint ED Provider: Rei Sapp Dx/Rx/DC Orders Clinical Impression: Acute UTI Instructions: Urinary Tract Infections in Women Prescriptions: New sulfamethoxazole-trimethoprim [Bactrim DS] 800-160 mg tablet 1 tab PO BID Qty: 14 RF: 0 No Action bumetanide 0.5 MG tablet 1 - 2 mg PO DAILY PRN (Reason: Swelling) RF: 0 oxycodone-acetaminophen 1 EACH tablet 1 ea PO TID PRN PRN (Reason: Pain/Inflammation) RF: 0 metformin 500 MG tablet 1,000 mg PO BID RF: 0 fluticasone propionate 1 SPRAY spray,suspension 1 spray NASAL DAILY RF: 0 atorvastatin 40 MG tablet 40 mg PO QHS RF: 0 belladonna alkaloids-opium 16.2-60 mg suppository 1 supp [place] BID PRN (Reason: pain) 4 Days Qty: 8 RF: 0 loratadine 10 mg tablet 10 mg PO DAILY RF: 0 cefdinir 300 mg capsule 300 mg PO BID Qty: 20 RF: 0 Xarelto 20 mg tablet 20 mg PO DAILY Qty: 30 RF: 0 amlodipine 2.5 mg tablet 2.5 mg PO DAILY Qty: 30 RF: 0 atenolol 50 mg tablet 50 mg PO DAILY Qty: 30 RF: 11 Primary Care Provider: Luanne Aquino Referrals: Luanne Aquino MD [Primary Care Provider] - 1-2 Days if not improving Disposition Disposition: Home, Self Care
[2020-10-15 10:15] LABS: Mucous, Urine 0 SEEN /hpf (<or=2+); Red Blood Cells-Urine 0 SEEN /hpf (0-5); Squamous Epithelial Cells - UA 0 SEEN /hpf (5-10)
[2020-10-15 10:18] LABS: Color, Urine Yellow (Yellow); Glucose, Dipstick 1000 mg/dl (Normal); Ketone-Dipstick Negative (Negative); Leukocyte Esterase-Dipstick 500 /ul (Negative); Nitrite-Dipstick Negative (Negative); Occult Blood-Urine 250 /ul (Negative); Protein-Dipstick 100 mg/dl (Negative); Urine Bilirubin Dipstick Negative (Negative); Urine Clarity Turbid (Clear); Urine Urobilinogen Normal (Normal)
[2020-10-15 10:34] LABS: Bacteria 2+ /hpf (None Seen); White Blood Cells >100 SEEN /hpf (0-5)
[2020-10-15 10:49] LABS: Absolute Lymphocyte Count 3.03 X10^3/uL (0.83-4.51); Absolute Neutrophil Count 6.3 X10^3/uL (2.0-7.7); Basophil# 0.05 X10^3/uL; Basophil% 0.5 % (0-1); Hematocrit 42.7 % (37-47); Hemoglobin 14.1 g/dL (12.0-15.0); Lymphocyte # 3.03 X10^3/ul (0.83-4.51); Lymphocyte % 30.1 % (19-41); Mean Corpuscular Volume 90.9 fL (81-99); Mean Platelet Vol. 10.3 fl (6.2-12.0); Monocyte# 0.58 X10^3/uL; Monocyte% 5.8 % (0-10); NRBC Flagged by Analyzer 0 % (0-5); Neutrophil # 6.28 X10^3/uL (2.7-7.7); Neutrophil % 62.2 % (47-70); Platelet Count 209 K/mm3 (150-450); RBC Distribution Width CV 12.8 % (11.6-14.6); RBC Distribution Width SD 42.7 fl (35.1-43.9); White Blood Count 10.1 K/mm3 (4.4-11.0)
[2020-10-15 10:54] LABS: Anion Gap 8 (5-15); BUN 19 mg/dL (7-18); BUN/Creat Ratio 25.3 RATIO (10-20); Calcium,Total 10.5 mg/dL (8.5-10.1); Chloride 101 mmol/L (98-107); Creatinine, Serum 0.75 mg/dL (0.55-1.02); EST Glomerular Filtration Rate 79 mL/min (>60); Est Glom Filt Rate - Afr Amer 96 mL/min (>60); Estimated Creatinine Clearance 38.35 ml/min; Glucose 184 mg/dL (74-106); Sodium Level 136 mmol/L (136-145)
[2020-10-15] MEDS: Phenazopyridine 95 MG Tablet 190 MG PO (11:58)
[2020-10-15] MEDS: Ondansetron 4 MG/2 ML Vial IV (11:58)
[2020-10-15] MEDS: Morphine 2 MG/ML Syringe IV (11:58)
[2020-10-15 12:00] VITALS: BP 137/65; PULSE 54; RESP 18; TEMP 36.9; O2SAT 97; O2SAT 98
--- NOTE | 2020-10-15 12:38 | CT_ITS ---
EXAM: CT ABDOMEN AND PELVIS WITH INTRAVENOUS CONTRAST : 1940 CLINICAL INDICATION: abd pain TECHNIQUE: Helically acquired images were obtained of the abdomen and pelvis with intravenous contrast. This CT exam was performed using one or more of the following dose reduction techniques: automated exposure control, adjustment of the mA and/or kV according to patient size, and/or use of iterative reconstruction technique. This report was created using [employer] report generation technology. CONTRAST: IV 100mL Isovue-370 COMPARISON: None. FINDINGS: LOWER THORAX: Unremarkable. Lung bases are clear. No cardiomegaly. No significant pericardial effusion. ABDOMEN: LIVER: Unremarkable. Homogeneous. No focal mass. GALLBLADDER AND BILE DUCTS: There is mild pneumobilia. There are surgical clips from a cholecystectomy. No intra- or extrahepatic biliary ductal dilation. PANCREAS: Unremarkable. No focal cystic or solid mass. SPLEEN: Unremarkable. Normal size without focal cystic or solid mass. ADRENALS: Unremarkable. No nodules. KIDNEYS AND URETERS: Unremarkable. Normal renal size and position. No hydronephrosis. STOMACH AND BOWEL: There is moderate stool in the colon which may represent early constipation. No stomach or bowel distention. No focal inflammatory change. PELVIS: APPENDIX: No evidence of acute appendicitis. BLADDER: Unremarkable. REPRODUCTIVE: Unremarkable as visualized. No mass. ABDOMEN and PELVIS: INTRAPERITONEAL SPACE: Unremarkable. No ascites or other fluid collection. No free air. BONES/JOINTS: Unremarkable. No suspicious lytic or blastic abnormality. SOFT TISSUES: Unremarkable. No discrete abdominal or pelvic wall hernia. VASCULATURE: Unremarkable. Abdominal aorta is non-dilated. LYMPH NODES: Unremarkable. No enlarged lymph nodes. CT/Abdomen/Pelvis W IV Cont ONLY IMPRESSION: Moderate stool in the colon which may represent early constipation. No other acute abnormalities in the abdomen or pelvis. Individualized dose optimization techniques were used for this CT. at 1348 Reported and signed by: Sharad nAg MD Electronically Signed: Sharad Ang MD at 13:46 EDT Tel , Service support ,
[2020-10-15 13:00] VITALS: BP 135/51; PULSE 55; RESP 16; TEMP 36.5; O2SAT 96
[2020-10-15 14:34] LABS: Reflex Lactate? Y
[2020-10-15 15:15] VITALS: BP 159/54; PULSE 57; RESP 18; TEMP 36.8; O2SAT 98
== END 2020-10-15 15:21 | disposition home or self-care (01) ==
PROVIDERS: Emergency Provider Emergency Medicine; PCP Internal Medicine
DX: N39.0 Urinary tract infection, site not specified (principal); E11.9 Type 2 diabetes mellitus without complications; E78.5 Hyperlipidemia, unspecified; F41.9 Anxiety disorder, unspecified; I10 Essential (primary) hypertension; I48.0 Paroxysmal atrial fibrillation; M19.90 Unspecified osteoarthritis, unspecified site; M99.04 Segmental and somatic dysfunction of sacral region; M99.05 Segmental and somatic dysfunction of pelvic region; Z79.01 Long term (current) use of anticoagulants; Z79.1 Long term (current) use of non-steroidal anti-inflammatories (NSAID); Z79.84 Long term (current) use of oral hypoglycemic drugs; Z79.899 Other long term (current) drug therapy; Z86.718 Personal history of other venous thrombosis and embolism
CPT/HCPCS: 74177; 80048; 81001; 83605; 85025; 87040; 87086; 87088; 96365; 96366; 96375; 99283; J7050; Q9967; A4216; J2405

== ENCOUNTER 2021-01-15 20:12 | Emergency (ER) | payer MEDICARE, SELFPAY ==
[2021-01-15 20:13] VITALS: BP 156/72; PULSE 71; RESP 16; TEMP 36.4; O2SAT 95; BMI 37.2
--- NOTE | 2021-01-15 20:20 | RAD_ITS ---
INDICATION: SOB EXAMINATION/TECHNIQUE: X-RAY - XR Chest 1 View COMPARISON: 10/06/2020 chest x-ray FINDINGS: LINES/DEVICES: None. LUNGS: Symmetric normal lung volumes. No airspace opacity or abnormal interstitial pattern. No nodule or mass. No pleural effusion or pneumothorax. MEDIASTINUM AND CARDIOVASCULAR STRUCTURES: Normal size and contour of the cardiomediastinal silhouette. No evidence of pulmonary vascular congestion. BONES AND SOFT TISSUES: Degenerative changes visualized cervical spine. No appreciable fracture or focal osseous lesion. RAD/Chest 1 View IMPRESSION: 1. No radiographic evidence of acute cardiopulmonary disease. Electronically Signed: Handy Sarmiento DO at 22:38 EST Tel , Service support ,
--- NOTE | 2021-01-15 20:57 | EKG12_ITS ---
Test Reason : COUGH Blood Pressure : / mmHG Vent. Rate : 073 BPM Atrial Rate : 073 BPM P-R Int : 184 ms QRS Dur : 088 ms QT Int : 372 ms P-R-T Axes : 063 -05 205 degrees QTc Int : 409 ms Sinus rhythm with occasional Premature ventricular complexes T wave abnormality, consider lateral ischemia Abnormal ECG Confirmed by LOU KEE, SAMI ([id number]), metropolitan editor AIDEN ELLIS ([id number]) on 01/17/2021 9:22:04 AM Referred By: ABDIRIZAK Confirmed By:SAMI BLAKE MD
[2021-01-15] MEDS: Morphine 4 MG/ML Syringe IV (21:55)
[2021-01-15] MEDS: 0.9% Normal Saline 1,000 ML 1000 ML IV (21:55)
[2021-01-15] MEDS: Ondansetron 4 MG/2 ML Vial IV (21:56)
[2021-01-15 22:01] LABS: Absolute Lymphocyte Count 2.54 X10^3/uL (0.83-4.51); Basophil# 0.03 X10^3/uL; Basophil% 0.3 % (0-1); Eosinophil# 0.07 X10^3/uL; Eosinophils% 0.7 % (0-5); Hematocrit 42.6 % (37-47); Hemoglobin 14.6 g/dL (12.0-15.0); Lymphocyte # 2.54 X10^3/ul (0.83-4.51); Lymphocyte % 24.4 % (19-41); Mean Corp Hgb Conc 34.3 g/dL (32-36); Mean Corpuscular Hgb 30.3 pg (27.0-32.0); Mean Corpuscular Volume 88.4 fL (81-99); Mean Platelet Vol. 9.9 fl (6.2-12.0); Monocyte# 0.69 X10^3/uL; Monocyte% 6.6 % (0-10); NRBC Flagged by Analyzer 0 % (0-5); Neutrophil % 67.4 % (47-70); Platelet Count 153 K/mm3 (150-450); RBC Distribution Width CV 12.7 % (11.6-14.6); RBC Distribution Width SD 41.7 fl (35.1-43.9); Red Blood Count 4.82 M/mm3 (4.2-5.4); White Blood Count 10.4 K/mm3 (4.4-11.0)
[2021-01-15 22:20] LABS: Anion Gap 8 (5-15); BUN 10 mg/dL (7-18); BUN/Creat Ratio 13.8 RATIO (10-20); Calcium,Total 10.3 mg/dL (8.5-10.1); Chloride 100 mmol/L (98-107); Creatinine, Serum 0.72 mg/dL (0.55-1.02); EST Glomerular Filtration Rate 83 mL/min (>60); Est Glom Filt Rate - Afr Amer 100 mL/min (>60); Estimated Creatinine Clearance 37.74 ml/min; Glucose 273 mg/dL (74-106); Sodium Level 135 mmol/L (136-145); Troponin-I HS 10 pg/mL (3.0-54.0)
[2021-01-15 22:45] LABS: Mucous, Urine 0 SEEN /hpf (<or=2+); Red Blood Cells-Urine 0 SEEN /hpf (0-5)
[2021-01-15 22:46] LABS: Color, Urine Yellow (Yellow); Glucose, Dipstick 1000 mg/dl (Normal); Ketone-Dipstick 15 mg/dl (Negative); Leukocyte Esterase-Dipstick 500 /ul (Negative); Nitrite-Dipstick Positive (Negative); Occult Blood-Urine 10 /ul (Negative); Protein-Dipstick 30 mg/dl (Negative); Specific Gravity, Urine 1.015 (1.002-1.030); Urine Bilirubin Dipstick Negative (Negative); Urine Clarity Sl. Cloudy (Clear); Urine Urobilinogen Normal (Normal)
[2021-01-15 22:54] LABS: Bacteria 2+ /hpf (None Seen); Squamous Epithelial Cells - UA 0-5 SEEN /hpf (5-10); White Blood Cells 10-25 SEEN /hpf (0-5)
--- NOTE | 2021-01-15 23:01 | EX.ED.DYSGE1 ---
HPI History of Present Illness Chief Complaint: Cough Narrative Narrative: Patient presents for cough, low-grade fevers, body aches, headache. She had her Covid vaccine but did not have her booster. Nothing seemed to bring this on or make this worse. And has been worsening gradually for days. Nothing seems to make it better. No other associated symptoms. [facility] Medical History Adult failure to thrive Anxiety DDD (degenerative disc disease) DVT (deep venous thrombosis) Essential (primary) hypertension History of DVT of lower extremity (05/2017) Hyperlipidemia Obesity Osteoarthritis Paroxysmal atrial fibrillation Segmental and somatic dysfunction of lumbar region Segmental and somatic dysfunction of pelvic region Segmental and somatic dysfunction of sacral region Segmental and somatic dysfunction of thoracic region Small bowel obstruction Type 2 diabetes mellitus whipple surgery Home Medications bumetanide 1 - 2 mg PO DAILY PRN 05/25/19 [History Last Taken Unknown] fluticasone propionate 1 spray NASAL DAILY 05/25/19 [History Last Taken Unknown] metformin 500 mg PO DAILY 05/25/19 [History Last Taken 10/06/20] oxycodone-acetaminophen 1 ea PO TID PRN PRN 05/25/19 [History Last Taken 10/05/20] atorvastatin 40 mg PO QHS 12/11/19 [History Last Taken 10/06/20] atenolol 50 mg tablet 50 mg PO DAILY #30 tab 05/30/20 [Rx Last Taken 10/06/20] belladonna alkaloids-opium 1 supp [place] BID PRN 4 Days #8 ea 10/02/20 [Rx Last Taken 10/06/20] loratadine 10 mg PO DAILY 10/06/20 [History Last Taken 10/06/20] cefdinir 300 mg PO BID #20 cap 10/08/20 [Rx Last Taken Unknown] rivaroxaban [Xarelto] 20 mg PO DAILY #30 tab 10/08/20 [Rx Last Taken Unknown] amlodipine 2.5 mg PO DAILY #30 tab 10/09/20 [Rx Last Taken Unknown] sulfamethoxazole-trimethoprim [Bactrim DS] 1 tab PO BID #14 tab 10/15/20 [Rx Last Taken Unknown] amoxicillin-pot clavulanate [Augmentin] 1 tab PO Q12H #20 tab 01/15/21 [Rx Last Taken Unknown] Allergy/AdvReac Type Severity Reaction Status Date / Time duloxetine [From Cymbalta] Allergy Other Verified 01/15/21 21:33 ramelteon [From Rozerem] Allergy Other Verified 01/15/21 21:33 bupropion AdvReac Other Verified 01/15/21 21:33 bupropion HCl AdvReac Other Verified 01/15/21 21:33 [From Wellbutrin] dexfenfluramine HCl AdvReac Unknown Verified 01/15/21 21:33 [From Redux] hydrochlorothiazide AdvReac Other Verified 01/15/21 21:33 ketorolac tromethamine AdvReac Itching Verified 01/15/21 21:33 [From Toradol] oxaprozin [From Daypro] AdvReac Other Verified 01/15/21 21:33 Family History Mother Myocardial infarction Father Asthma Surgical History H/O medial meniscus repair of right knee History of bilateral carpal tunnel release History of bladder suspension procedure History of bladder suspension procedure History of bowel resection History of hysterectomy History of hysterectomy Hx of cholecystectomy S/P cholecystectomy sigmoid colon removed vaginal wall repaired Social History Smoking Status: Never smoker second hand exposure: No alcohol intake: current alcohol intake frequency: holidays/special occasions only substance use type: does not use caffeine: Yes what type of physical activity do you participate in: none frequency: does not exercise seatbelt use: always ROS ROS ED Constitutional Constitutional ED: Reports fever(s) and subjective Eyes Eyes: Denies change in vision ENT ENT ED: Denies ear pain Cardiovascular Cardiovascular: Denies chest pain Respiratory/Chest Respiratory/Chest: Reports cough; Denies dyspnea Gastrointestinal Gastrointestinal: Reports nausea and vomiting; Denies abdominal pain or diarrhea Genitourinary Genitourinary ED: Denies dysuria or hematuria Musculoskeletal Musculoskeletal: Denies arthralgias or myalgias Integumentary Denies rash Neurologic Neurologic: Reports headache(s); Denies paresthesias or weakness Psychiatric Psychiatric: Denies depression Endocrine Endocrinology: Denies polyuria Allergic/Immunologic Allergic/Immunologic ED: Denies urticaria EXAM Physical Exam Const Vital Signs: 01/15/21 20:13 01/15/21 20:33 Temperature 97.6 F L Temperature Source Temporal Pulse Rate 71 Respiratory Rate 16 Respiratory Effort Short of Breath Respiratory Depth Normal Respiratory Pattern Normal Blood Pressure 156/72 H Blood Pressure Mean 100 Pulse Ox 95 Oxygen Delivery Method Room Air Positive well nourished and well developed General Appearance ED: well developed HEENT Negative for trauma or tenderness Eyes EOMs intact bilaterally Neck supple Resp normal respiratory effort and clear to auscultation bilaterally Cardio regular rate and regular rhythm GI normal to inspection, nondistended, normoactive bowel sounds Extremity normal to inspection Neuro oriented x3 Sensorium / Orientation: alert Psych mental status grossly normal Skin no rashes or lesions noted MDM MDM MDM Narrative Medical decision making narrative: EKG showed sinus rhythm at a rate of 73 with PVCs. Nonspecific T wave changes. Troponin was normal. Chest x-ray was interpreted by the radiologist and myself and showed no acute abnormalities. Covid test was negative. Labs as shown below. Signs of UTI without sepsis or other complications. She was treated with fluids and pain medicine while awaiting results. She feels better on reevaluation. We will treat for sinus headache as well as UTI with Augmentin. Follow-up with primary care return for any new or worsening issues. Impression #1 UTI cystitis Impression #2 acute sinusitis headache Lab Data Attestation: I reviewed the patient's lab results. Labs: Laboratory Results - last 24 hr 01/15/21 01/15/21 01/15/21 21:50 21:50 22:40 WBC 10.4 RBC 4.82 Hgb 14.6 Hct 42.6 MCV 88.4 MCH 30.3 MCHC 34.3 RDW Std Deviation 41.7 RDW Coeff of Viviane 12.7 Plt Count 153 MPV 9.9 Immature Gran % (Auto) 0.600 Neut % (Auto) 67.4 Lymph % (Auto) 24.4 [place] % (Auto) 6.6 Eos % (Auto) 0.7 Baso % (Auto) 0.3 Absolute Neuts (auto) 7.0 Absolute Lymphs (auto) 2.54 Nucleated RBC % 0 Sodium 135 L Potassium 4.0 Chloride 100 Carbon Dioxide 27.0 Anion Gap 8 BUN 10 Creatinine 0.72 Estim Creat Clear Calc 37.74 Est GFR (MDRD) Af Amer 100 Est GFR (MDRD) Non-Af 83 BUN/Creatinine Ratio 13.8 Glucose 273 H Calcium 10.3 H Troponin I High Sens 10 Urine Color Yellow Urine Clarity Sl. Cloudy Urine pH 6.0 Ur Specific [place] 1.015 Urine Protein 30 H Urine Glucose (UA) 1000 H Urine Ketones 15 H Urine Occult Blood 10 H Urine Nitrite Positive H Urine Bilirubin Negative Urine Urobilinogen Normal Ur Leukocyte Esterase 500 H Urine RBC 0 SEEN Urine WBC 10-25 SEEN Ur Squamous Epith Cells 0-5 SEEN Urine Bacteria 2+ Urine Mucus 0 SEEN Radiography Diagnostic Testing: Clinical Impression(s) from Imaging Studies Chest X-Ray 01/15/21 20:20 IMPRESSION: 1. No radiographic evidence of acute cardiopulmonary disease. Electronically Signed: Handy Sarmiento DO at 22:38 EST Tel , Service support , Discharge Plan Triage Chief Complaint: Cough ED Provider: Riley Del Rosario Dx/Rx/DC Orders Instructions: ED Sinus Headache, ED CYSTITIS Female Adult Prescriptions: New amoxicillin-pot clavulanate [Augmentin] 875-125 mg tablet 1 tab PO Q12H Qty: 20 RF: 0 No Action bumetanide 0.5 MG tablet 1 - 2 mg PO DAILY PRN (Reason: Swelling) RF: 0 oxycodone-acetaminophen 1 EACH tablet 1 ea PO TID PRN PRN (Reason: Pain/Inflammation) RF: 0 metformin 500 MG tablet 500 mg PO DAILY RF: 0 fluticasone propionate 1 SPRAY spray,suspension 1 spray NASAL DAILY RF: 0 atorvastatin 40 MG tablet 40 mg PO QHS RF: 0 belladonna alkaloids-opium 16.2-60 mg suppository 1 supp [place] BID PRN (Reason: pain) 4 Days Qty: 8 RF: 0 loratadine 10 mg tablet 10 mg PO DAILY RF: 0 cefdinir 300 mg capsule 300 mg PO BID Qty: 20 RF: 0 Xarelto 20 mg tablet 20 mg PO DAILY Qty: 30 RF: 0 amlodipine 2.5 mg tablet 2.5 mg PO DAILY Qty: 30 RF: 0 sulfamethoxazole-trimethoprim [Bactrim DS] 800-160 mg tablet 1 tab PO BID Qty: 14 RF: 0 atenolol 50 mg tablet 50 mg PO DAILY Qty: 30 RF: 11 Primary Care Provider: Luanne Aquino Referrals: Luanne Aquino MD [Primary Care Provider] - Disposition Disposition: Home, Self Care
[2021-01-15] MEDS: Amox/Clavulanate 875 MG Tablet PO (23:25)
[2021-01-15 23:28] VITALS: BP 145/75; PULSE 70; RESP 20; O2SAT 97
== END 2021-01-15 23:29 | disposition home or self-care (01) ==
PROVIDERS: Emergency Provider Emergency Medicine; PCP Internal Medicine
DX: N30.90 Cystitis, unspecified without hematuria (principal); J01.90 Acute sinusitis, unspecified; E11.9 Type 2 diabetes mellitus without complications; E78.5 Hyperlipidemia, unspecified; F41.9 Anxiety disorder, unspecified; I10 Essential (primary) hypertension; I48.0 Paroxysmal atrial fibrillation; Z79.01 Long term (current) use of anticoagulants; Z79.1 Long term (current) use of non-steroidal anti-inflammatories (NSAID); Z79.84 Long term (current) use of oral hypoglycemic drugs; Z86.718 Personal history of other venous thrombosis and embolism; M19.90 Unspecified osteoarthritis, unspecified site; M99.04 Segmental and somatic dysfunction of sacral region; M99.05 Segmental and somatic dysfunction of pelvic region; R51.9 Headache, unspecified
CPT/HCPCS: 71045; 80048; 81001; 84484; 85025; 87426; 93005; 96361; 96374; 96375; 99285; J7030; A4216; J2405

== ENCOUNTER 2021-01-17 20:25 | Observation (INO) | payer MEDICARE, SELFPAY ==
[2021-01-17 20:26] VITALS: BP 117/51; PULSE 57; RESP 13; TEMP 36.5; O2SAT 94; BMI 40.7
--- NOTE | 2021-01-17 20:41 | EKG12_ITS ---
Test Reason : CONFUSION Blood Pressure : / mmHG Vent. Rate : 056 BPM Atrial Rate : 056 BPM P-R Int : 202 ms QRS Dur : 098 ms QT Int : 428 ms P-R-T Axes : 052 -05 143 degrees QTc Int : 413 ms Sinus bradycardia Nonspecific T wave abnormality Abnormal ECG Confirmed by DWIGHT KEE, ANNE ([id number]), loan expeditor AIDEN ELLIS ([id number]) on 01/19/2021 8:22:57 AM Referred By: CHEPE Confirmed By:ANNE QUINTANILLA MD
--- NOTE | 2021-01-17 20:41 | RAD_ITS ---
STUDY: XR Chest 1 View 01/17/2021 9:01 PM REASON FOR EXAM: Female, 80 years old. CHEST PAIN Additional breath sounds COMPARISON: Two days ago. TECHNIQUE: XR Chest 1 View FINDINGS: There is no demonstrated pleural abnormality. Enlarged heart size. Normal mediastinum. Normal deondre. Prominent appearing increased interstitial lung markings. Normal visualized pulmonary arteries. There is atherosclerotic calcification of the aortic arch with tortuosity. There are diffuse degenerative changes of the visualized thoracic spine. There is degenerative osteoarthritis of the bilateral shoulders. There is no demonstrated abnormality of the visualized soft tissue structures of the upper abdomen. RAD/Chest 1 View (Portable) IMPRESSION: There are no acute findings. Electronically Signed: Saud Mitchell MD at 21:24 EST , Service support ,
--- NOTE | 2021-01-17 21:03 | EDS_ITS ---
HPI History of Present Illness Chief Complaint: Confusion Detail of Chief Complaint: Altered mental status Informant: EMS Onset/Context/Timing Onset: - (Unable to determine) Context: - (Unable to determine) Timing: Continuous Current Severity: Severe Maximum Severity: Severe Worsened by: Unknown Relieved by: Unknown Associated Symptoms Associated Symptoms: Unknown Narrative Narrative: Patient is an elderly woman with history of type 2 diabetes, cystitis, essential hypertension, paroxysmal atrial fibrillation and hyperlipidemia. I was informed that her son was recently diagnosed with Covid. Patient is unable to contribute to history and physical exam is limited as well. Patient is disoriented. She needs tactile stimulus to open her eyes and answer questions otherwise she closes her eyes and does not answer the questions. Prior similar symptoms: No Recent Illness/Hospitalization: No PFSH PFSH Medical History Adult failure to thrive Anxiety DDD (degenerative disc disease) DVT (deep venous thrombosis) Essential (primary) hypertension History of DVT of lower extremity (05/2017) Hyperlipidemia Obesity Osteoarthritis Paroxysmal atrial fibrillation Segmental and somatic dysfunction of lumbar region Segmental and somatic dysfunction of pelvic region Segmental and somatic dysfunction of sacral region Segmental and somatic dysfunction of thoracic region Small bowel obstruction Type 2 diabetes mellitus whipple surgery Medical History unable to obtain Home Medications bumetanide 1 - 2 mg PO DAILY PRN 05/25/19 [History Last Taken Unknown] fluticasone propionate 1 spray NASAL DAILY 05/25/19 [History Last Taken Unknown] metformin 500 mg PO DAILY 05/25/19 [History Last Taken 10/06/20] oxycodone-acetaminophen 1 ea PO TID PRN PRN 05/25/19 [History Last Taken 10/05/20] atorvastatin 40 mg PO QHS 12/11/19 [History Last Taken 10/06/20] atenolol 50 mg tablet 50 mg PO DAILY #30 tab 05/30/20 [Rx Last Taken 10/06/20] belladonna alkaloids-opium 1 supp HI BID PRN 4 Days #8 ea 10/02/20 [Rx Last Taken 10/06/20] loratadine 10 mg PO DAILY 10/06/20 [History Last Taken 10/06/20] cefdinir 300 mg PO BID #20 cap 10/08/20 [Rx Last Taken Unknown] rivaroxaban [Xarelto] 20 mg PO DAILY #30 tab 10/08/20 [Rx Last Taken Unknown] amlodipine 2.5 mg PO DAILY #30 tab 10/09/20 [Rx Last Taken Unknown] sulfamethoxazole-trimethoprim [Bactrim DS] 1 tab PO BID #14 tab 10/15/20 [Rx Last Taken Unknown] amoxicillin-pot clavulanate [Augmentin] 1 tab PO Q12H #20 tab 01/15/21 [Rx Last Taken Unknown] Allergy/AdvReac Type Severity Reaction Status Date / Time duloxetine [From Cymbalta] Allergy Other Verified 01/15/21 21:33 ramelteon [From Rozerem] Allergy Other Verified 01/15/21 21:33 bupropion AdvReac Other Verified 01/15/21 21:33 bupropion HCl AdvReac Other Verified 01/15/21 21:33 [From Wellbutrin] dexfenfluramine HCl AdvReac Unknown Verified 01/15/21 21:33 [From Redux] hydrochlorothiazide AdvReac Other Verified 01/15/21 21:33 ketorolac tromethamine AdvReac Itching Verified 01/15/21 21:33 [From Toradol] oxaprozin [From Daypro] AdvReac Other Verified 01/15/21 21:33 Family History Mother Myocardial infarction Father Asthma Surgical History H/O medial meniscus repair of right knee History of bilateral carpal tunnel release History of bladder suspension procedure History of bladder suspension procedure History of bowel resection History of hysterectomy History of hysterectomy Hx of cholecystectomy S/P cholecystectomy sigmoid colon removed vaginal wall repaired Surgical History unable to obtain Social History Smoking Status: Never smoker second hand exposure: No alcohol intake: current alcohol intake frequency: holidays/special occasions only substance use type: does not use caffeine: Yes what type of physical activity do you participate in: none frequency: does not exercise seatbelt use: always ROS ROS ED Review of Systems ROS Unobtainable: due to encephalopathy and due to mental status EXAM Physical Exam Const Vital Signs: 01/17/21 20:26 01/17/21 21:24 01/17/21 22:00 Temperature 97.7 F L 97.8 F 98 F Temperature Source Oral Oral Oral Pulse Rate 57 L 56 L 58 L Respiratory Rate 13 17 14 Blood Pressure 117/51 L 97/46 L 105/62 Blood Pressure Mean 73 63 76 Pulse Ox 94 93 93 Oxygen Delivery Method Room Air Room Air Room Air Positive well nourished, well developed and obese General Appearance ED: well developed, NAD and pallor; Negative for cyanotic or diaphoretic Nutritional Appearance: obese HEENT HEENT Narrative: Head is atraumatic normocephalic. TMs normal. Nares patent. Mucosa is dry. There is no erythema or exudate. Uvula is midline. Eyes PERRL and EOMs intact bilaterally General Eye ED: Negative for scleral icterus Neck no lymphadenopathy, supple and no JVD Neck Narrative: Trachea is midline. There is no in-store expiratory stridor. Resp No normal respiratory effort and No clear to auscultation bilaterally Auscultation: rales diffuse (Adventitial breath sounds) Cardio regular rate, regular rhythm, S1 normal heart sound, S2 normal heart sound and no murmurs GI normal to inspection, nondistended, normoactive bowel sounds, non-tender and non-distended Palpation: soft Back/Spine no CVA tenderness Extremity normal to inspection General Extremety ED: Yes edema; Negative for tenderness General Extremity: edema Neuro No oriented x3 Sensorium / Orientation: lethargic; Negative for alert Psych Negative for mental status grossly normal Skin no rashes or lesions noted and no wounds General Skin Exam: pallor MDM MDM MDM Narrative Medical decision making narrative: Patient was exposed to a family member on 11 January who tested positive for Covid on January 12. Patient is encephalopathic. Need to rule out urinary tract infection versus pneumonia versus Covid versus other etiology. Will assess electrolytes, CBC, UA. Lab Data Attestation: I reviewed the patient's lab results. Lab results narrative: CBC is normal. Basic metabolic panel reveals mild hyponatremia and a glucose of 393 with a normal CO2 and anion gap. UA is unremarkable for infection. There is evidence of glucose and ketones. Covid test was negative. Since there is no obvious source for her altered mental status CT was obtained. Patient will require admission. Disposition be made by Dr. Wilmer Montez Labs: Laboratory Results - last 24 hr 01/17/21 01/17/21 01/17/21 21:10 21:10 21:36 WBC 7.8 RBC 4.17 L Hgb 12.6 Hct 37.0 MCV 88.7 MCH 30.2 MCHC 34.1 RDW Std Deviation 41.2 RDW Coeff of Viviane 12.6 Plt Count 146 L MPV 10.2 Immature Gran % (Auto) 0.600 Neut % (Auto) 58.7 Lymph % (Auto) 30.1 [place] % (Auto) 9.3 Eos % (Auto) 1.0 Baso % (Auto) 0.3 Absolute Neuts (auto) 4.6 Absolute Lymphs (auto) 2.36 Nucleated RBC % 0 Sodium 134 L Potassium 3.7 Chloride 99 Carbon Dioxide 26.0 Anion Gap 9 BUN 23 H Creatinine 0.92 Estim Creat Clear Calc 41.02 Est GFR (MDRD) Af Amer 76 Est GFR (MDRD) Non-Af 63 BUN/Creatinine Ratio 25.0 H Glucose 393 H Calcium 9.9 Total Bilirubin 0.70 AST 13 L ALT 17 Alkaline Phosphatase 92 Total Protein 6.8 Albumin 3.0 L Globulin 3.8 Albumin/Globulin Ratio 0.8 L Urine Color Yellow Urine Clarity Clear Urine pH 5.0 Ur Specific [place] 1.020 Urine Protein Negative Urine Glucose (UA) 1000 H Urine Ketones 5 H Urine Occult Blood Negative Urine Nitrite Negative Urine Bilirubin Negative Urine Urobilinogen Normal Ur Leukocyte Esterase 25 H Urine RBC 0 SEEN Urine WBC 0-5 SEEN Ur Squamous Epith Cells 0-5 SEEN Urine Bacteria 0 SEEN Urine Mucus 0 SEEN Ethyl Alcohol 01/17/21 21:40 WBC RBC Hgb Hct MCV MCH MCHC RDW Std Deviation RDW Coeff of Viviane Plt Count MPV Immature Gran % (Auto) Neut % (Auto) Lymph % (Auto) [place] % (Auto) Eos % (Auto) Baso % (Auto) Absolute Neuts (auto) Absolute Lymphs (auto) Nucleated RBC % Sodium Potassium Chloride Carbon Dioxide Anion Gap BUN Creatinine Estim Creat Clear Calc Est GFR (MDRD) Af Amer Est GFR (MDRD) Non-Af BUN/Creatinine Ratio Glucose Calcium Total Bilirubin AST ALT Alkaline Phosphatase Total Protein Albumin Globulin Albumin/Globulin Ratio Urine Color Urine Clarity Urine pH Ur Specific [place] Urine Protein Urine Glucose (UA) Urine Ketones Urine Occult Blood Urine Nitrite Urine Bilirubin Urine Urobilinogen Ur Leukocyte Esterase Urine RBC Urine WBC Ur Squamous Epith Cells Urine Bacteria Urine Mucus Ethyl Alcohol < 3.0 Radiography Chest X-Ray - ED: 1 View, Read by ED Physician (Single view portable chest x-ray was interpreted by me at 2121), Lungs, Mediastinum, Bony Structures, No Acute Disease and Chronic Changes Diagnostic Testing: Clinical Impression(s) from Imaging Studies Chest X-Ray 01/17/21 20:41 IMPRESSION: There are no acute findings. Electronically Signed: Saud Mitchell MD at 21:24 EST , Service support , EKG Initial EKG: Attestation: I personally reviewed and interpreted this EKG as follows: Interpretation: Sinus Bradycardia (Sinus bradycardia with a ventricular rate of 56. HI interval is 202 ms. QS duration 98 ms. QT duration is 428 ms. [place] is normal. Computer is reading nonspecific T wave abnormalities. There is slight negative deflection in the anterolateral leads V3 through V6.) Discharge Plan Triage Chief Complaint: Confusion ED Provider: Mikel Anand Dx/Rx/DC Orders Clinical Impression: Encephalopathy acute Prescriptions: No Action bumetanide 0.5 MG tablet 1 - 2 mg PO DAILY PRN (Reason: Swelling) RF: 0 oxycodone-acetaminophen 1 EACH tablet 1 ea PO TID PRN PRN (Reason: Pain/Inflammation) RF: 0 metformin 500 MG tablet 500 mg PO DAILY RF: 0 fluticasone propionate 1 SPRAY spray,suspension 1 spray NASAL DAILY RF: 0 atorvastatin 40 MG tablet 40 mg PO QHS RF: 0 belladonna alkaloids-opium 16.2-60 mg suppository 1 supp HI BID PRN (Reason: pain) 4 Days Qty: 8 RF: 0 loratadine 10 mg tablet 10 mg PO DAILY RF: 0 cefdinir 300 mg capsule 300 mg PO BID Qty: 20 RF: 0 Xarelto 20 mg tablet 20 mg PO DAILY Qty: 30 RF: 0 amlodipine 2.5 mg tablet 2.5 mg PO DAILY Qty: 30 RF: 0 sulfamethoxazole-trimethoprim [Bactrim DS] 800-160 mg tablet 1 tab PO BID Qty: 14 RF: 0 amoxicillin-pot clavulanate [Augmentin] 875-125 mg tablet 1 tab PO Q12H Qty: 20 RF: 0 atenolol 50 mg tablet 50 mg PO DAILY Qty: 30 RF: 11 Primary Care Provider: Luanne Aqunio Referrals: Luanne Aquino MD [Primary Care Provider] -
[2021-01-17 21:16] LABS: Absolute Lymphocyte Count 2.36 X10^3/uL (0.83-4.51); Absolute Neutrophil Count 4.6 X10^3/uL (2.0-7.7); Basophil# 0.02 X10^3/uL; Basophil% 0.3 % (0-1); Eosinophil# 0.08 X10^3/uL; Hemoglobin 12.6 g/dL (12.0-15.0); Lymphocyte # 2.36 X10^3/ul (0.83-4.51); Lymphocyte % 30.1 % (19-41); Mean Corp Hgb Conc 34.1 g/dL (32-36); Mean Corpuscular Hgb 30.2 pg (27.0-32.0); Mean Corpuscular Volume 88.7 fL (81-99); Mean Platelet Vol. 10.2 fl (6.2-12.0); Monocyte# 0.73 X10^3/uL; Monocyte% 9.3 % (0-10); NRBC Flagged by Analyzer 0 % (0-5); Neutrophil % 58.7 % (47-70); Platelet Count 146 K/mm3 (150-450); RBC Distribution Width CV 12.6 % (11.6-14.6); RBC Distribution Width SD 41.2 fl (35.1-43.9); Red Blood Count 4.17 M/mm3 (4.2-5.4); White Blood Count 7.8 K/mm3 (4.4-11.0)
[2021-01-17 21:24] VITALS: BP 97/46; PULSE 56; RESP 17; TEMP 36.6; O2SAT 93
[2021-01-17 21:33] LABS: ALB/GLOB Ratio 0.8 RATIO (0.9-2.4); AST(SGOT) 13 U/L (15-37); Alanine Aminotransfer ALT/SGPT 17 U/L (13-56); Alkaline Phosphatase 92 U/L (45-117); Anion Gap 9 (5-15); BUN 23 mg/dL (7-18); Calcium,Total 9.9 mg/dL (8.5-10.1); Chloride 99 mmol/L (98-107); Creatinine, Serum 0.92 mg/dL (0.55-1.02); EST Glomerular Filtration Rate 63 mL/min (>60); Est Glom Filt Rate - Afr Amer 76 mL/min (>60); Estimated Creatinine Clearance 41.02 ml/min; Globulin 3.8 g/dL (2.2-4.2); Glucose 393 mg/dL (74-106); Potassium 3.7 mmol/L (3.5-5.1); Protein, Total 6.8 g/dL (6.4-8.2); Sodium Level 134 mmol/L (136-145)
[2021-01-17 21:52] LABS: Bacteria 0 SEEN /hpf (None Seen); Mucous, Urine 0 SEEN /hpf (<or=2+); Red Blood Cells-Urine 0 SEEN /hpf (0-5)
[2021-01-17 21:56] LABS: Color, Urine Yellow (Yellow); Glucose, Dipstick 1000 mg/dl (Normal); Ketone-Dipstick 5 mg/dl (Negative); Leukocyte Esterase-Dipstick 25 /ul (Negative); Nitrite-Dipstick Negative (Negative); Occult Blood-Urine Negative /ul (Negative); Protein-Dipstick Negative (Negative); Urine Bilirubin Dipstick Negative (Negative); Urine Clarity Clear (Clear); Urine Urobilinogen Normal (Normal)
[2021-01-17 22:00] VITALS: BP 105/62; PULSE 58; RESP 14; TEMP 36.6; O2SAT 93
[2021-01-17 22:05] LABS: Squamous Epithelial Cells - UA 0-5 SEEN /hpf (5-10); White Blood Cells 0-5 SEEN /hpf (0-5)
[2021-01-17 22:18] LABS: Alcohol, Blood (Medical)-Serum < 3.0 mg/dL
[2021-01-17] MEDS: 0.9% Normal Saline 1,000 ML 150 ML IV (22:20)
--- NOTE | 2021-01-17 22:35 | CT_ITS ---
STUDY: CT BRAIN WITHOUT CONTRAST REASON FOR EXAM: Female, 80 years old. Confusion. UTI. RADIATION DOSAGE (If Supplied By Facility): CTDIvol = ( 44.99 ) mGy, DLP = ( 829.85 ) mGycm TECHNIQUE: Transaxial CT imaging of the brain was performed without administration of intravenous contrast material. Individualized dose optimization techniques were used for this CT. COMPARISON: 10/06/2020. FINDINGS: Normal soft tissue structures. Normal calvarium. Normal size ventricles and extra-axial spaces for the patient''s age. There are areas of decreased attenuation within the white matter tracts of the supratentorial brain, consistent with microvascular disease changes. Normal basal ganglia and thalami. Normal brainstem. Normal cerebellum. There is no intracranial hemorrhage. There are no findings of an acute ischemic infarction. Normal visualized paranasal sinuses. CT/Brain/Head without Contrast IMPRESSION: Chronic involutional changes without evidence of acute intracranial or calvarial abnormality. No significant interval change. Electronically Signed: Joon Holley DO at 23:35 EST Tel [phone], Service support ,
[2021-01-17 23:55] VITALS: BP 145/75; PULSE 61; RESP 18; TEMP 36.6; O2SAT 94
--- NOTE | 2021-01-17 23:56 | NURSING ---
SON EMMY NOTIFIED @ [phone] OF PT'S ADMISSION TO PCU. UNABLE TO BE W/PT BC HE STATES HE TESTED + FOR COVID.
[2021-01-18] VITALS (9 sets, daily range): BP systolic 129–153; BP diastolic 58–85; PULSE 62–94; RESP 16–18; TEMP 36.5–36.9; O2SAT 96–99; BMI 38.5
--- NOTE | 2021-01-18 | ED.RN ---
UNABLE TO OBTAIN CULTURES.
--- NOTE | 2021-01-18 01:09 | HP.PCM.HOS_ITS ---
HPI - General General Date of Admission: 01/17/21 HPI Narrative LAURA MARTIN, is a 80 F was brought to ER by EMS for confusion. Patient confused disoriented found by EMS. Prior to that patient was seen in ED 2 days ago and was started on Augmentin for UTI. Patient also on Percocet, alprazolam and codeine/guaifenesin at home. Patient had negative CT head in ED. Chest x- ray does not show acute finding. CT head shows chronic involutional changes. Twelve-lead EKG in ED shows sinus bradycardia at 56 bpm, TN 202 ms, QRS 98, QTc 430 ms. T inversion in V4 to V6. The patient had recent EKG on 01/15 shows sinus rhythm with occasional PVCs, nonspecific T wave abnormality in V4 to V6. Similar EKG pattern on October 08, 2020. When patient reached on the floor, she is alert oriented oriented x3. Patient also with bilateral lower legs swelling for last 3 to 4 days. On bumetanide as needed at home. Denies burning micturition. UA is negative. Denies nausea vomiting, headache, shortness of breath or chest pain. No GI bleed. [facility] Medical History Adult failure to thrive Anxiety DDD (degenerative disc disease) DVT (deep venous thrombosis) Essential (primary) hypertension History of DVT of lower extremity (05/2017) Hyperlipidemia Obesity Osteoarthritis Paroxysmal atrial fibrillation Segmental and somatic dysfunction of lumbar region Segmental and somatic dysfunction of pelvic region Segmental and somatic dysfunction of sacral region Segmental and somatic dysfunction of thoracic region Small bowel obstruction Type 2 diabetes mellitus whipple surgery Medical History unable to obtain Home Medications bumetanide 1 - 2 mg PO DAILY PRN 05/25/19 [History Last Taken Unknown] fluticasone propionate 1 spray NASAL DAILY 05/25/19 [History Last Taken Unknown] metformin 500 mg PO DAILY 05/25/19 [History Last Taken 10/06/20] oxycodone-acetaminophen 1 ea PO TID PRN PRN 05/25/19 [History Last Taken 10/05/20] atorvastatin 40 mg PO QHS 12/11/19 [History Last Taken 10/06/20] atenolol 50 mg tablet 50 mg PO DAILY #30 tab 05/30/20 [Rx Last Taken 10/06/20] belladonna alkaloids-opium 1 supp TN BID PRN 4 Days #8 ea 10/02/20 [Rx Last Taken 10/06/20] loratadine 10 mg PO DAILY 10/06/20 [History Last Taken 10/06/20] cefdinir 300 mg PO BID #20 cap 10/08/20 [Rx Last Taken Unknown] rivaroxaban [Xarelto] 20 mg PO DAILY #30 tab 10/08/20 [Rx Last Taken Unknown] amlodipine 2.5 mg PO DAILY #30 tab 10/09/20 [Rx Last Taken Unknown] sulfamethoxazole-trimethoprim [Bactrim DS] 1 tab PO BID #14 tab 10/15/20 [Rx Last Taken Unknown] amoxicillin-pot clavulanate [Augmentin] 1 tab PO Q12H #20 tab 01/15/21 [Rx Last Taken Unknown] Allergy/AdvReac Type Severity Reaction Status Date / Time duloxetine [From Cymbalta] Allergy Other Verified 01/15/21 21:33 ramelteon [From Rozerem] Allergy Other Verified 01/15/21 21:33 bupropion AdvReac Other Verified 01/15/21 21:33 bupropion HCl AdvReac Other Verified 01/15/21 21:33 [From Wellbutrin] dexfenfluramine HCl AdvReac Unknown Verified 01/15/21 21:33 [From Redux] hydrochlorothiazide AdvReac Other Verified 01/15/21 21:33 ketorolac tromethamine AdvReac Itching Verified 01/15/21 21:33 [From Toradol] oxaprozin [From Daypro] AdvReac Other Verified 01/15/21 21:33 Family History Mother Myocardial infarction Father Asthma Surgical History H/O medial meniscus repair of right knee History of bilateral carpal tunnel release History of bladder suspension procedure History of bladder suspension procedure History of bowel resection History of hysterectomy History of hysterectomy Hx of cholecystectomy S/P cholecystectomy sigmoid colon removed vaginal wall repaired Surgical History unable to obtain Social History Smoking Status: Never smoker second hand exposure: No alcohol intake: current alcohol intake frequency: holidays/special occasions only substance use type: does not use caffeine: Yes what type of physical activity do you participate in: none frequency: does not exercise seatbelt use: always ROS ROS Narrative Constitutional: Reports fatigue and weakness, sometimes gets confused HEENT: Reports systems reviewed and no addt'l complaints, except as documented Respiratory/Chest: Denies chest pain, shortness of breath at rest or with exertion Gastrointestinal: Denies coffee ground emesis, hematemesis or vomiting Genitourinary: Denies burning urination or new urinary tract symptoms Musculoskeletal: Reports joint pain and limited range of motion Neurologic: Positive for confusion. Denies seizure-like activity skin: No ulcer. No rash Endocrinology: Reports systems reviewed and no addt'l complaints, except as doc umented Hematologic/Lymphatic: Reports systems reviewed and no addt'l complaints, except as documented Rest 12 ROS are negative except as mentioned in HPI Vital Signs Vital Signs Vital Signs: 01/17/21 20:26 01/17/21 21:24 01/17/21 22:00 Temperature 97.7 F L 97.8 F 98 F Temperature Source Oral Oral Oral Pulse Rate 57 L 56 L 58 L Respiratory Rate 13 17 14 Blood Pressure 117/51 L 97/46 L 105/62 Blood Pressure Mean 73 63 76 Blood Pressure Source Blood Pressure Position Blood Pressure Location Pulse Ox 94 93 93 Oxygen Delivery Method Room Air Room Air Room Air 01/17/21 23:55 01/18/21 00:54 Temperature 97.8 F 97.7 F L Temperature Source Oral Oral Pulse Rate 61 62 Respiratory Rate 18 18 Blood Pressure 145/75 H 129/69 H Blood Pressure Mean 98 89 Blood Pressure Source Monitor Blood Pressure Position Semi-Fowlers Blood Pressure Location Left Arm Pulse Ox 94 99 Oxygen Delivery Method Room Air Room Air Weight Weight: 217 lb 9 oz Body Mass Index (BMI) 38.5 Physical Exam Narrative General: Alert, Oriented x3, Cooperative HEENT: Atraumatic, PERRLA, EOMI, Normocephalic Oral: Oral mucosa moist. No Gingival or Mucosal Lesions/ Ulcerations Neck: Supple, No JVD, Negative Carotid Bruits Lungs: Air entry diminished in bilateral lung bases. No crepitation/rhonchi Cardiovascular: Regular rate, Regular Rhythm, Normal S1, Normal S2, No murmurs Abdomen: Bowel Sounds Present, Soft, Non Tender, Non-Distended : Had good urine output, clear urine. No renal angle tenderness. No suprapubic tenderness. Extremities: Bilateral leg swelling below knee level, Capillary Refill Less than 3 Seconds Skin: No rashes, No breakdown Musculoskeletal: No Tenderness to Palpation of Joints or Extremities Neurological: Cranial nerves II-XII grossly intact, DTR 2+/4 and Symmetrical, Neuro grossly intact Psych/Mental Status: Mild cognitive deficit. Results Lab / Micro Data Result Diagrams: 01/17/21 21:10 01/17/21 21:10 Labs: Laboratory Results - last 24 hr 01/17/21 21:10: WBC 7.8, RBC 4.17 L, Hgb 12.6, Hct 37.0, MCV 88.7, MCH 30.2, M CHC 34.1, RDW Std Deviation 41.2, RDW Coeff of Viviane 12.6, Plt Count 146 L, MPV 10.2, Immature Gran % (Auto) 0.600, Neut % (Auto) 58.7, Lymph % (Auto) 30.1, [place] % (Auto) 9.3, Eos % (Auto) 1.0, Baso % (Auto) 0.3, Absolute Neuts (auto) 4.6, Absolute Lymphs (auto) 2.36, Nucleated RBC % 0 01/17/21 21:10: Sodium 134 L, Potassium 3.7, Chloride 99, Carbon Dioxide 26.0, Anion Gap 9, BUN 23 H, Creatinine 0.92, Estim Creat Clear Calc 41.02, Est GFR (MDRD) Af Amer 76, Est GFR (MDRD) Non-Af 63, BUN/Creatinine Ratio 25.0 H, Glucose 393 H, Calcium 9.9, Total Bilirubin 0.70, AST 13 L, ALT 17, Alkaline Phosphatase 92, Total Protein 6.8, Albumin 3.0 L, Globulin 3.8, Albumin/Globulin Ratio 0.8 L 01/17/21 21:36: Urine Color Yellow, Urine Clarity Clear, Urine pH 5.0, Ur Specific [place] 1.020, Urine Protein Negative, Urine Glucose (UA) 1000 H, Urine Ketones 5 H, Urine Occult Blood Negative, Urine Nitrite Negative, Urine Bilirubin Negative, Urine Urobilinogen Normal, Ur Leukocyte Esterase 25 H, Urine RBC 0 SEEN, Urine WBC 0-5 SEEN, Ur Squamous Epith Cells 0-5 SEEN, Urine Bacteria 0 SEEN, Urine Mucus 0 SEEN 01/17/21 21:40: Ethyl Alcohol < 3.0 Micro: Microbiology 01/17/21 21:30 Nasal Secretion SARS-CoV-2 Antigen (Rapid) - Final Radiology Impression Chest X-Ray 01/17/21 20:41 IMPRESSION: There are no acute findings. Electronically Signed: Saud Mitchell MD at 21:24 EST , Service support , Brain CT 01/17/21 22:35 IMPRESSION: Chronic involutional changes without evidence of acute intracranial or calvarial abnormality. No significant interval change. Electronically Signed: Joon Holley DO at 23:35 EST Tel [phone], Service support , Assessment & Plan Assessment/Plan (1) Encephalopathy acute: PLAN: 1. Acute encephalopathy, etiology unclear probably polypharmacy including opioids: Patient is being admitted in PCU as an observation. Patient on antibiotic, Augmentin for recently diagnosed UTI on 01/15 and continued. UA is negative. Urine culture is ordered. Denies fever or chills. Patient was last admitted in September 2020 for encephalopathy due to UTI 2. Paroxysmal A. fib: Patient on Xarelto and continued. 3. Type 2 diabetes mellitus: Accu-Chek before meals and at bedtime coverage Humalog sliding scale. Started on glargine insulin 10 units subcu twice daily 4. Bilateral leg swelling: Patient on as needed Bumex which is mainly scheduled. Patient last echo August 2017 reported as EF 55%, LV systolic function normal. BNP 2D echo ordered. 5. Other multiple comorbidities include hypertension, osteoarthritis of multiple joints of lower extremities, dyslipidemia, recurrent history of UTI, AD HD: Home medication reconciliation is pending. On amlodipine, atorvastatin. Living will/advanced directive/end of life care: Patient does not have living will or advanced directive. His son is next to kin. After discussion of benefits/risks procedures involved with full code, DNR CC arrest and DNR CC, the patient opted for full code in case she has cardiopulmonary arrest but does not want to be on life support for long time. Therefore, full code Patient does not artificial life support including intubation, tube feed, ventilator and/chest compression, central venous catheter, vasopressor and DC shock if needed Total time spent in [id number] encounter in discussion of advanced d irective 16 minutes. Charges/Coding Visit Charges OBSV E&M: 18764 Initial observation care L3 Procedures Hospitalists Procedures: 85514 Advncd Care Plan 30 Min
[2021-01-18 01:52] LABS: Magnesium 1.7 mg/dL (1.6-2.6)
--- NOTE | 2021-01-18 02:32 | ECHOD_ITS ---
Reason For Study: heart failure Procedure This was a 2D Doppler, Color Flow transthoracic echocardiogram. The study was technically difficult. Due to body habitus. Exam performed portable in patient room. Left Ventricle Normal LV size. Left ventricular systolic function is normal. The estimated ejection fraction is 60 %. Stage 1 diastolic dysfunction. No regional wall motion abnormalities noted. Right Ventricle Normal RV size. Normal systolic function. Atria Normal left atrium. Normal right atrium. Mitral Valve Mitral valve not well visualized. Tricuspid Valve Normal tricuspid valve. Mild (1+) tricuspid valve insufficiency. Pulmonary artery systolic pressure is 44 mmHg. Great Vessels Normal aortic root. The pulmonary artery is normal size. Normal inferior vena cava. Pericardium/Pleural No pericardial effusion. MMode/2D Measurements & Calculations LVIDd: 4.5 cm IVSd: 1.2 cm Ao root diam: 3.3 cm LVIDs: 2.8 cm LVPWd: 1.2 cm RVDd: 2.4 cm FS: 38.0 % LAV(MOD-bp): 46.9 ml LA dimension(2D): 4.0 cm LA A4 area: 15.7 cm2 LAV(MOD-bp) Indexed: 23.4 ml/m2 LAV(MOD-sp2): 53.5 ml LAV(MOD-sp4): 39.6 ml RA A4 area: 10.6 cm2 Time Measurements MV dec time: 0.26 sec Doppler Measurements & Calculations MV E max robson: 74.7 cm/sec Lat Peak E' Robson: 6.5 cm/sec Med Peak E' Robson: 6.6 cm/sec MV A max robson: 111.4 cm/sec E/E' lat: 11.6 E/E' med: 11.2 MV E/A: 0.67 Ao V2 max: 135.7 cm/sec LV V1 max: 103.7 cm/sec TR max robson: 309.4 cm/sec Ao max P.4 mmHg LV V1 max P.3 mmHg TR max P.3 mmHg ECHO/Echo Complete Interpretation Summary Normal LV size. Left ventricular systolic function is normal. The estimated ejection fraction is 60 %. Stage 1 diastolic dysfunction. Contrast injection was performed. Ordering Physician: Ozzie Guerrier Referring Physician: Luanne Aquino Performed By: Katt Nunez, RYLIE, RVT
--- NOTE | 2021-01-18 04:10 | PCS.PANDOC ---
PANDEMIC DOCUMENTATION INITIATED: Date: 01/18/2021 Time: 001
[2021-01-18] MEDS: Insulin Lispro 100 UNIT/ML INSULN.PEN SC ×4 (05:37→21:27)
[2021-01-18 05:40] LABS: Bedside Glucose 275 mg/dL (70-110)
[2021-01-18 07:09] LABS: Absolute Lymphocyte Count 2.45 X10^3/uL (0.83-4.51); Absolute Neutrophil Count 2.7 X10^3/uL (2.0-7.7); Basophil# 0.03 X10^3/uL; Basophil% 0.5 % (0-1); Eosinophil# 0.11 X10^3/uL; Eosinophils% 1.9 % (0-5); Hemoglobin 13.5 g/dL (12.0-15.0); Lymphocyte # 2.45 X10^3/ul (0.83-4.51); Lymphocyte % 41.5 % (19-41); Mean Corp Hgb Conc 33.8 g/dL (32-36); Mean Corpuscular Hgb 30.1 pg (27.0-32.0); Mean Corpuscular Volume 89.1 fL (81-99); Mean Platelet Vol. 10.4 fl (6.2-12.0); Monocyte# 0.55 X10^3/uL; Monocyte% 9.3 % (0-10); NRBC Flagged by Analyzer 0 % (0-5); Neutrophil # 2.72 X10^3/uL (2.7-7.7); Neutrophil % 46.1 % (47-70); Platelet Count 154 K/mm3 (150-450); RBC Distribution Width CV 12.5 % (11.6-14.6); RBC Distribution Width SD 40.9 fl (35.1-43.9); Red Blood Count 4.49 M/mm3 (4.2-5.4); White Blood Count 5.9 K/mm3 (4.4-11.0)
[2021-01-18 07:40] LABS: Anion Gap 6 (5-15); BUN 16 mg/dL (7-18); BUN/Creat Ratio 22.5 RATIO (10-20); Calcium,Total 10.2 mg/dL (8.5-10.1); Chloride 102 mmol/L (98-107); Creatinine, Serum 0.71 mg/dL (0.55-1.02); EST Glomerular Filtration Rate 84 mL/min (>60); Est Glom Filt Rate - Afr Amer 102 mL/min (>60); Estimated Creatinine Clearance 37.74 ml/min; Glucose 248 mg/dL (74-106); Potassium 3.6 mmol/L (3.5-5.1); Sodium Level 137 mmol/L (136-145)
[2021-01-18 08:51] LABS: BNP,B-Type NATRIURETIC PEPTIDE 86.2 pg/mL (0-100)
[2021-01-18] MEDS: Amox/Clavulanate 875 MG Tablet PO ×2 (10:00→16:15)
[2021-01-18] MEDS: amLODIPine 2.5 MG Tablet PO (10:00)
[2021-01-18] MEDS: Bumetanide 0.5 MG Tablet 1 MG PO (10:08)
[2021-01-18] MEDS: Senna/Docusate Sodium 1 Tablet 2 TABLET PO (10:56)
[2021-01-18 11:30] LABS: Bedside Glucose 340 mg/dL (70-110)
--- NOTE | 2021-01-18 12:40 | CASEMGMT ---
This RN CM received message that pt's son Goyo would like a call regarding pt and possible HHC. This RN CM to room to discuss discharge plan with pt and daughter is at bedside. Pt is A/Ox4 and answers questions appropriately. Pt states did well with therapy and 'I could have gone further.' Pt declines HHC as she state she is not homebound. Pt declines need for OP therapy but is agreeable to CCN referral. Pt states ok for this RN CM to call sonGoyo, back to discuss all. Call to sonGoyo, and he is updated on all, voices understanding. Goyo also given info regarding [facility] as a resource, voices understanding. Pt/children voice no further questions/concerns/needs. SStaten RN CM
--- NOTE | 2021-01-18 13:53 | PCM.HOSP.N ---
Hospitalist Note Patient is a 80-year-old lady with recent diagnosis of UTI discharged on Augmentin brought to the emergency department with confusion Patient admitted to regular nursing floor where she is currently undergoing evaluation. 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
[2021-01-18] MEDS: Acetaminophen 325 MG Tablet 650 MG PO (14:14)
--- NOTE | 2021-01-18 16:00 | CASEMGMT ---
This RN CM to room with PETERSON form, explanation done-pt voices understanding, and signs PETERSON form. Pt is A/Ox4 at this time. Original to chart and copy to pt. Phylicia GANDHI CM
[2021-01-18] MEDS: Rivaroxaban 20 MG Tablet PO (16:15)
[2021-01-18 16:21] LABS: Bedside Glucose 264 mg/dL (70-110)
[2021-01-18 21:06] LABS: Bedside Glucose 265 mg/dL (70-110)
[2021-01-18] MEDS: MELATONIN 3 MG TABLET PO (21:28)
[2021-01-18] MEDS: Atorvastatin Calcium 40 MG Tablet PO (21:33)
[2021-01-19] MEDS: Acetaminophen 325 MG Tablet 650 MG PO ×2 (01:45→08:53)
[2021-01-19 01:56] VITALS: BP 152/79; PULSE 71; RESP 18; TEMP 36.5; O2SAT 95
[2021-01-19 03:00] VITALS: PULSE 80
[2021-01-19] MEDS: Insulin Lispro 100 UNIT/ML INSULN.PEN SC ×2 (06:38→11:14)
[2021-01-19 06:45] LABS: Bedside Glucose 242 mg/dL (70-110)
[2021-01-19 07:00] VITALS: PULSE 77
[2021-01-19 08:00] VITALS: BP 162/74; PULSE 67; RESP 16; TEMP 36.6; O2SAT 98
[2021-01-19 08:38] VITALS: O2SAT 96
[2021-01-19] MEDS: Bumetanide 0.5 MG Tablet 1 MG PO (08:53)
[2021-01-19] MEDS: Senna/Docusate Sodium 1 Tablet 2 TABLET PO (08:53)
[2021-01-19] MEDS: amLODIPine 2.5 MG Tablet PO (08:54)
[2021-01-19] MEDS: Amox/Clavulanate 875 MG Tablet PO (08:54)
--- NOTE | 2021-01-19 11:03 | DS.PCM_ITS ---
Providers Date of Admission: 01/17/21 Primary Care Physician: Dr. Luanne Aquino MD Reason For Visit: AMS Diagnosis Discharge Diagnosis (1) Encephalopathy acute: Status: Acute Code(s): G93.40 - Encephalopathy, unspecified Medications at Discharge Home Medications bumetanide 1 - 2 mg PO DAILY PRN 05/25/19 fluticasone propionate 1 spray NASAL DAILY PRN 05/25/19 metformin 1,000 mg PO BID 05/25/19 atorvastatin 40 mg PO QHS 12/11/19 atenolol 50 mg tablet 50 mg PO DAILY #30 tab 05/30/20 loratadine 10 mg PO DAILY 10/06/20 Xarelto 20 mg PO DAILY #30 tab 10/08/20 amoxicillin-pot clavulanate [Augmentin] 1 tab PO Q12H #20 tab 01/15/21 Hospital Course Summary of Care Provided Minutes Spent on Discharge: 35 Hospital Course: Patient is a 80-year-old lady with recent diagnosis of UTI discharged on Augmentin brought to the emergency department with confusion Acute encephalopathy ?Attributed to combination of recent UTI as well as use of narcotics. Patient was on oxycodone this was discontinued monitored overnight condition did stabilize History of DVT ?Patient is on Xarelto Hypertension - Blood pressure controlled, home medications continued with dose adjustment as needed Diabetes mellitus type II -patient's oral hypoglycemics held. Placed on long acting insulin, Accu-Cheks a.c. 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 SKIN: No Rash PSYCH; Flat affect Weight / BMI Weight Weight: 98.685 kg Body Mass Index (BMI) 38.5 ABG / Lab / Microbiology Data Result Diagrams: 01/18/21 07:00 01/18/21 07:00 Laboratory: Laboratory Results - last 24 hr 01/18/21 11:19: POC Glucose 340 H 01/18/21 16:13: POC Glucose 264 H 01/18/21 21:00: POC Glucose 265 H 01/19/21 06:37: POC Glucose 242 H Microbiology: Microbiology 01/17/21 21:30 Nasal Secretion SARS-CoV-2 Antigen (Rapid) - Final Radiography Diagnostic Testing: Radiology Impression Echocardiogram 01/18/21 02:32 Interpretation Summary Normal LV size. Left ventricular systolic function is normal. The estimated ejection fraction is 60 %. Stage 1 diastolic dysfunction. Contrast injection was performed. Ordering Physician: Ozzie Guerrier Referring Physician: Luanne Aquino Performed By: Katt Nunez RDCS, RVT D/C Instructions Discharge Diet: 1800 Calorie Control Diet Discharge Activity: Return to Normal Activity Call your doctor if you observe: Fever of 101 or Higher, Shortness of breath, Fainting spells and Chest pain Meaningful Use Info Meaningful Use Diagnoses (Choose all that apply): None applicable Discharge Plan Admission Admit Date/Time: 01/17/21 23:40 Attending Provider: Margarito Tirado Primary Care Provider: Luanne Aquino Discharge Orders/Prescriptions Prescriptions: Continued bumetanide 0.5 MG tablet 1 - 2 mg PO DAILY PRN (Reason: Swelling) RF: 0 metformin 500 MG tablet 1,000 mg PO BID RF: 0 fluticasone propionate 1 SPRAY spray,suspension 1 spray NASAL DAILY PRN (Reason: Allergy Symptoms) RF: 0 atorvastatin 40 MG tablet 40 mg PO QHS RF: 0 loratadine 10 mg tablet 10 mg PO DAILY RF: 0 Xarelto 20 mg tablet 20 mg PO DAILY Qty: 30 RF: 0 amoxicillin-pot clavulanate [Augmentin] 875-125 mg tablet 1 tab PO Q12H Qty: 20 RF: 0 atenolol 50 mg tablet 50 mg PO DAILY Qty: 30 RF: 11 Discontinued oxycodone-acetaminophen 1 EACH tablet 1 ea PO TID PRN PRN (Reason: Pain/Inflammation) RF: 0 Referrals / Follow Up: Luanne Aquino MD [Primary Care Provider] - In 1 Week Disposition Disposition (needs filled in before D/C Order can be placed): Home, Self Care Charges/Coding Visit Charges OBSV E&M: 51223 Observation care discharge
[2021-01-19 11:25] LABS: Bedside Glucose 277 mg/dL (70-110)
--- NOTE | 2021-01-19 11:59 | PHA.DC.MR ---
Pharmacy Service has performed discharge medication reconciliation for this patient. No new medications at time of discharge review. Medications reviewed are from previously reported home medications. Home Medications bumetanide 1 - 2 mg PO DAILY PRN 05/25/19 fluticasone propionate 1 spray NASAL DAILY PRN 05/25/19 metformin 1,000 mg PO BID 05/25/19 atorvastatin 40 mg PO QHS 12/11/19 atenolol 50 mg tablet 50 mg PO DAILY #30 tab 05/30/20 loratadine 10 mg PO DAILY 10/06/20 Xarelto 20 mg PO DAILY #30 tab 10/08/20 amoxicillin-pot clavulanate [Augmentin] 1 tab PO Q12H #20 tab 01/15/21 The patient's discharge medication list was reviewed for discrepancies and discrepancies were resolved.
--- NOTE | 2021-02-02 17:45 | CCN.REFER ---
CCN REFERRAL PATIENT DECLINES CCN. PATIENT STATES DTR COMES TO HOME DAILY AND HELPS WITH MEDICATIONS, ETC. CCN CONTACT INFORMATION LEFT.
== END 2021-01-19 11:05 | disposition home or self-care (01) ==
LOC: ED 23:37 → PCU 23:56
PROVIDERS: Admitting Provider Internal Medicine; Emergency Provider Emergency Medicine; PCP Internal Medicine; Visit Provider Internal Medicine
DX: G92.8 Other toxic encephalopathy (principal); T40.2X5A Adverse effect of other opioids, initial encounter; N39.0 Urinary tract infection, site not specified; E66.9 Obesity, unspecified; E11.9 Type 2 diabetes mellitus without complications; I11.0 Hypertensive heart disease with heart failure; I50.9 Heart failure, unspecified; E78.5 Hyperlipidemia, unspecified; I48.0 Paroxysmal atrial fibrillation; M99.05 Segmental and somatic dysfunction of pelvic region; M99.04 Segmental and somatic dysfunction of sacral region; M15.9 Polyosteoarthritis, unspecified; M99.02 Segmental and somatic dysfunction of thoracic region; M99.03 Segmental and somatic dysfunction of lumbar region; Z68.38 Body mass index [BMI] 38.0-38.9, adult; Z86.718 Personal history of other venous thrombosis and embolism; Z79.899 Other long term (current) drug therapy; Z79.01 Long term (current) use of anticoagulants; Z79.84 Long term (current) use of oral hypoglycemic drugs; Z20.822 Contact with and (suspected) exposure to COVID-19
CPT/HCPCS: 70450; 71045; 80048; 80053; 81001; 82077; 82962; 83735; 83880; 84100; 85025; 87040; 87086; 87426; 93005; 93306; 96360; 96361; 97110; 97162; 97166; 97530; 99218; 99251; 99285; J7030; P9612; A4216; G0378; G0463

== ENCOUNTER 2021-08-15 20:53 | Emergency (ER) | payer MEDICARE, SELFPAY ==
[2021-08-15 20:54] VITALS: BP 190/86; PULSE 95; RESP 16; TEMP 37.7; O2SAT 95; BMI 39.3
--- NOTE | 2021-08-15 21:42 | EX.ED.DYSGE1 ---
HPI History of Present Illness Chief Complaint: General Illness Informant: patient and family Narrative Narrative: 3-day history started with diarrhea, yesterday nausea this morning fevers headache vomiting x3. Currently nauseated. No hematemesis. No recent antibiotics. Lower abdominal discomfort along with lower back discomfort. Denies any dysuria. Concern for UTI. She started leftover dose of Macrobid x1 today. Reports nonproductive cough. No sick contacts. COVID vaccinated. History of paroxysmal atrial fibrillation currently on Xarelto. History of hysterectomy, cholecystectomy, appendectomy, had partial colectomy in the past. [facility] Medical History Adult failure to thrive Anxiety DDD (degenerative disc disease) DVT (deep venous thrombosis) Essential (primary) hypertension History of DVT of lower extremity (05/2017) Hyperlipidemia Obesity Osteoarthritis Paroxysmal atrial fibrillation Segmental and somatic dysfunction of lumbar region Segmental and somatic dysfunction of pelvic region Segmental and somatic dysfunction of sacral region Segmental and somatic dysfunction of thoracic region Small bowel obstruction Type 2 diabetes mellitus whipple surgery Home Medications bumetanide 0.5 mg tablet 1 - 2 mg PO DAILY PRN Swelling 05/25/19 [History Last Taken Unknown] fluticasone propionate 50 mcg/actuation nasal spray,suspension 1 spray NASAL DAILY PRN Allergy Symptoms 05/25/19 [History Last Taken Unknown] metformin 500 mg tablet,extended release 24 hr 1,000 mg PO BID diabetes 05/25/19 [History Last Taken 10/06/20] atorvastatin 40 mg tablet 40 mg PO QHS cholesterol 12/11/19 [History Last Taken 10/06/20] atenolol 50 mg tablet 50 mg PO DAILY Patient needs follow up appt. for more refills #30 tabs 05/30/20 [Rx Last Taken 10/06/20] loratadine 10 mg tablet 10 mg PO DAILY ALLERGIES 10/06/20 [History Last Taken 10/06/20] rivaroxaban 20 mg tablet (Xarelto) 20 mg PO DAILY #30 tabs 10/08/20 [Rx Last Taken Unknown] amoxicillin 875 mg-potassium clavulanate 125 mg tablet (Augmentin) 1 tab PO Q12H #20 tabs 01/15/21 [Rx Last Taken Unknown] Allergy/AdvReac Type Severity Reaction Status Date / Time duloxetine [From Cymbalta] Allergy Other Verified 08/15/21 21:00 ramelteon [From Rozerem] Allergy Other Verified 08/15/21 21:00 bupropion AdvReac Other Verified 08/15/21 21:00 bupropion HCl AdvReac Other Verified 08/15/21 21:00 [From Wellbutrin] dexfenfluramine HCl AdvReac Unknown Verified 08/15/21 21:00 [From Redux] hydrochlorothiazide AdvReac Other Verified 08/15/21 21:00 ketorolac tromethamine AdvReac Itching Verified 08/15/21 21:00 [From Toradol] oxaprozin [From Daypro] AdvReac Other Verified 08/15/21 21:00 Family History Mother Myocardial infarction Father Asthma Surgical History H/O medial meniscus repair of right knee History of bilateral carpal tunnel release History of bladder suspension procedure History of bladder suspension procedure History of bowel resection History of hysterectomy History of hysterectomy Hx of cholecystectomy S/P cholecystectomy sigmoid colon removed vaginal wall repaired Social History Smoking Status: Never smoker second hand exposure: No alcohol intake: current alcohol intake frequency: holidays/special occasions only substance use type: does not use caffeine: Yes what type of physical activity do you participate in: none frequency: does not exercise seatbelt use: always ROS ROS ED Constitutional Constitutional ED: Reports fever(s); Denies chills or sweats Eyes Eyes: Denies change in vision ENT ENT ED: Denies dysphagia or sore throat Cardiovascular Cardiovascular: Denies chest pain, leg edema, palpitations or racing heartbeat Respiratory/Chest Respiratory/Chest: Reports cough; Denies dyspnea or dyspnea on exertion Gastrointestinal Gastrointestinal: Reports abdominal pain, diarrhea, nausea and vomiting Genitourinary Genitourinary ED: Denies dysuria, hematuria or urinary frequency Musculoskeletal Musculoskeletal: Reports back pain; Denies extremity pain or neck pain Integumentary Denies rash or wounds Neurologic Neurologic: Reports headache(s); Denies paresthesias or weakness EXAM Physical Exam Const Vital Signs: 08/15/21 20:54 08/15/21 21:00 08/15/21 23:53 Temperature 99.8 F H Temperature Source Oral Pulse Rate 95 89 Respiratory Rate 16 15 Respiratory Effort Normal Non-Labored Blood Pressure 190/86 H 166/79 H Blood Pressure Mean 120 108 Pulse Ox 95 96 Oxygen Delivery Method Room Air Room Air 08/16/21 01:00 Temperature Temperature Source Pulse Rate 86 Respiratory Rate 15 Respiratory Effort Blood Pressure 160/77 H Blood Pressure Mean Pulse Ox 97 Oxygen Delivery Method Positive well nourished and well developed General Appearance ED: well developed and NAD HEENT HEENT Narrative: Mild dry mucosal membranes. normocephalic and atraumatic Eyes PERRL, EOMs intact bilaterally and conjunctivae normal General Eye ED: Yes normal appearance of both eyes Neck no lymphadenopathy and supple Neck Narrative: No meningismus. General: Negative for tenderness Chest Wall Chest: Negative for tenderness Resp normal respiratory effort and normal air movement Effort and Inspection: symmetric chest movement; Negative for respiratory distress Cardio regular rate, regular rhythm and no murmurs Peripheral Pulses: pulses 2+ throughout GI normal to inspection, nondistended, normoactive bowel sounds GI Narrative: Mild suprapubic tenderness. There is no guarding or rebound. Negative Martin's McBurney's tenderness. Palpation: Negative for guarding or rebound tenderness present Back/Spine no CVA tenderness and no thoracic nor lumbar tenderness Extremity normal to inspection General Extremety ED: Negative for edema or tenderness General Extremity: Negative for edema Neuro oriented x3 and no sensory deficits noted Sensorium / Orientation: awake and alert Skin no rashes or lesions noted and no wounds MDM MDM MDM Narrative Medical decision making narrative: Patient with multiple complaints. Work-up initiated cough symptoms chest x-ray 1 view reviewed by myself and read by radiology shows no acute process. She has no meningismus with her headaches. COVID testing obtained also negative. Labs noted white count was 19.7 with a left shift. No infection on chest x-ray urine obtained shows only 25 leukocytes no other acute findings. She denies dysuria. Urine culture sent. She denies any rash. Due to her lower abdominal discomfort with her back discomfort CT scan obtained per radiology shows no acute process, however review by myself concerns for distended bladder. She gave a urine sample prior to the CT. Straight cath urine was obtained over a liter output. Her symptoms resolved from this. She denies any change in her medications. Denies any urine retention issues in the past. With improvement of symptoms negative work-up for infections. Discharged with outpatient follow-up with strict return precautions if she is unable to urinate. She is given follow-up with urology. All questions were answered. Lab Data Attestation: I reviewed the patient's lab results. Labs: Laboratory Results - last 24 hr 08/15/21 08/15/21 08/15/21 21:57 21:57 22:24 WBC 19.7 H RBC 4.78 Hgb 14.2 Hct 41.6 MCV 87.0 MCH 29.7 MCHC 34.1 RDW Std Deviation 40.7 RDW Coeff of Viviane 12.8 Plt Count 150 MPV 10.0 Immature Gran % (Auto) 0.500 Neut % (Auto) 87.2 H Lymph % (Auto) 8.7 L [place] % (Auto) 3.2 Eos % (Auto) 0.2 Baso % (Auto) 0.2 Absolute Neuts (auto) 17.2 H Absolute Lymphs (auto) 1.72 Nucleated RBC % 0 Sodium 134 L Potassium 3.6 Chloride 100 Carbon Dioxide 26.0 Anion Gap 8 BUN 9 Creatinine 0.79 Estim Creat Clear Calc 37.74 Est GFR (MDRD) Af Amer 91 Est GFR (MDRD) Non-Af 75 BUN/Creatinine Ratio 11.5 Glucose 259 H Calcium 10.1 Total Bilirubin 0.90 AST 16 ALT 20 Alkaline Phosphatase 74 Total Protein 7.4 Albumin 3.9 Globulin 3.5 Albumin/Globulin Ratio 1.1 Urine Color Yellow Urine Clarity Clear Urine pH 7.0 Ur Specific [place] 1.005 Urine Protein Negative Urine Glucose (UA) 1000 H Urine Ketones 15 H Urine Occult Blood Negative Urine Nitrite Negative Urine Bilirubin Negative Urine Urobilinogen Normal Ur Leukocyte Esterase 25 H Urine RBC 0 SEEN Urine WBC 0-5 SEEN Ur Squamous Epith Cells 0-5 SEEN Urine Bacteria 0 SEEN Urine Mucus 0 SEEN Radiography Chest X-Ray - ED: 1 View, Read by ED Physician and Read by Radiologist Diagnostic Testing: Clinical Impression(s) from Imaging Studies Chest X-Ray 08/15/21 22:40 IMPRESSION: No acute cardiopulmonary disease or interval change. Electronically Signed: Joon Holley DO at 22:55 EDT Reading Location ID and State: [facility] / [place] Tel [phone], Service support , Abdomen/Pelvis CT 08/15/21 22:45 IMPRESSION: No acute intra-abdominal processes or major interval change. Electronically Signed: Joon Holley DO at 23:51 EDT Reading Location ID and State: [address] [place] [address] Tel [phone], Service support , Discharge Plan Triage Chief Complaint: General Illness Other Complaint: Back ED Provider: Mitesh Herbert Dx/Rx/DC Orders Clinical Impression: Bladder retention of urine, Abdominal pain, suprapubic, Diarrhea, Leukocytosis, Headache, Cough Instructions: ED Diarrhea, Unknown Cause, ED Urinary Retention, Female Prescriptions: No Action bumetanide 0.5 MG tablet 1 - 2 mg PO DAILY PRN (Reason: Swelling) metformin 500 MG tablet 1,000 mg PO BID fluticasone propionate 1 SPRAY spray,suspension 1 spray NASAL DAILY PRN (Reason: Allergy Symptoms) atorvastatin 40 MG tablet 40 mg PO QHS loratadine 10 mg tablet 10 mg PO DAILY Xarelto 20 mg tablet 20 mg PO DAILY Qty: 30 0RF Rx Instructions: must administer with evening meal amoxicillin-pot clavulanate [Augmentin] 875-125 mg tablet 1 tab PO Q12H Qty: 20 0RF atenolol 50 mg tablet 50 mg PO DAILY Qty: 30 11RF Primary Care Provider: Luanne Aquino Referrals: Jewel Zamora MD [STAFF PHYSICIAN] - 1 Week Luanne Aquino MD [Primary Care Provider] - Activity Restrictions/Additional Instructions: CT scan obtained noted distended bladder on my review. He had 1 L urine output on a straight cath. Renal function is normal. Urine no significant findings culture is sent. Monitor urine output, if decreased with increasing discomfort will need to return for reevaluation. Follow-up with urology as an outpatient. Disposition Disposition: Home, Self Care Discharge Date/Time: 08/16/21 01:02
[2021-08-15] MEDS: Ondansetron 4 MG/2 ML Vial IV (22:01)
[2021-08-15] MEDS: 0.9% Normal Saline 1,000 ML 1000 ML IV (22:02)
[2021-08-15 22:03] LABS: Absolute Lymphocyte Count 1.72 X10^3/uL (0.83-4.51); Absolute Neutrophil Count 17.2 X10^3/uL (2.0-7.7); Basophil# 0.04 X10^3/uL; Basophil% 0.2 % (0-1); Eosinophil# 0.03 X10^3/uL; Eosinophils% 0.2 % (0-5); Hematocrit 41.6 % (37-47); Hemoglobin 14.2 g/dL (12.0-15.0); Lymphocyte # 1.72 X10^3/ul (0.83-4.51); Lymphocyte % 8.7 % (19-41); Mean Corp Hgb Conc 34.1 g/dL (32-36); Mean Corpuscular Hgb 29.7 pg (27.0-32.0); Monocyte# 0.62 X10^3/uL; Monocyte% 3.2 % (0-10); NRBC Flagged by Analyzer 0 % (0-5); Neutrophil # 17.17 X10^3/uL (2.7-7.7); Neutrophil % 87.2 % (47-70); Platelet Count 150 K/mm3 (150-450); RBC Distribution Width CV 12.8 % (11.6-14.6); RBC Distribution Width SD 40.7 fl (35.1-43.9); Red Blood Count 4.78 M/mm3 (4.2-5.4); White Blood Count 19.7 K/mm3 (4.4-11.0)
[2021-08-15] MEDS: Acetaminophen 500 MG Tablet 1000 MG PO (22:03)
[2021-08-15 22:32] LABS: ALB/GLOB Ratio 1.1 RATIO (0.9-2.4); AST(SGOT) 16 U/L (15-37); Alanine Aminotransfer ALT/SGPT 20 U/L (13-56); Albumin, Serum 3.9 g/dL (3.2-5.0); Alkaline Phosphatase 74 U/L (45-117); Anion Gap 8 (5-15); BUN 9 mg/dL (7-18); BUN/Creat Ratio 11.5 RATIO (10-20); Calcium,Total 10.1 mg/dL (8.5-10.1); Chloride 100 mmol/L (98-107); Creatinine, Serum 0.79 mg/dL (0.55-1.02); EST Glomerular Filtration Rate 75 mL/min (>60); Est Glom Filt Rate - Afr Amer 91 mL/min (>60); Estimated Creatinine Clearance 37.74 ml/min; Globulin 3.5 g/dL (2.2-4.2); Glucose 259 mg/dL (74-106); Potassium 3.6 mmol/L (3.5-5.1); Protein, Total 7.4 g/dL (6.4-8.2); Sodium Level 134 mmol/L (136-145)
[2021-08-15 22:33] LABS: Bacteria 0 SEEN /hpf (None Seen); Mucous, Urine 0 SEEN /hpf (<or=2+); Red Blood Cells-Urine 0 SEEN /hpf (0-5)
--- NOTE | 2021-08-15 22:40 | RAD_ITS ---
STUDY: X-RAY CHEST REASON FOR EXAM: Female, 80 years old. Cough. Back pain and fever headache and vomiting. (Oral and impacts his morning for bladder infection. TECHNIQUE: Single AP portable view of the chest. COMPARISON: None. FINDINGS: The lungs are clear and expanded. There is no demonstrated pleural abnormality. Normal size heart. Normal mediastinum and deondre. Normal visualized pulmonary arteries. Normal visualized aortic arch and descending thoracic aorta. Normal visualized thoracic spine. Normal visualized ribs, clavicles, and shoulders. There is no demonstrated abnormality of the visualized soft tissue structures of the upper abdomen. RAD/Chest 1 View (Portable) IMPRESSION: No acute cardiopulmonary disease or interval change. Electronically Signed: Joon Holley DO at 22:55 EDT ,
[2021-08-15 22:43] LABS: Color, Urine Yellow (Yellow); Glucose, Dipstick 1000 mg/dl (Normal); Ketone-Dipstick 15 mg/dl (Negative); Leukocyte Esterase-Dipstick 25 /ul (Negative); Nitrite-Dipstick Negative (Negative); Occult Blood-Urine Negative /ul (Negative); Protein-Dipstick Negative (Negative); Specific Gravity, Urine 1.005 (1.002-1.030); Urine Bilirubin Dipstick Negative (Negative); Urine Clarity Clear (Clear); Urine Urobilinogen Normal (Normal)
--- NOTE | 2021-08-15 22:45 | CT_ITS ---
STUDY: CT ABDOMEN AND PELVIS WITHOUT CONTRAST REASON FOR EXAM: Female, 80 years old. Back pain. Headache and fever. Vomiting. On antibiotics for UTI. RADIATION DOSAGE (If Supplied By Facility): CTDIvol = ( 20.94 ) mGy, DLP = ( 1198.47 ) mGycm TECHNIQUE: Transaxial images were obtained from the dome of the diaphragm to the symphysis pubis without oral contrast, and without intravenous contrast. Sagittal and coronal images were reconstructed. Individualized dose optimization techniques were used for this CT. COMPARISON: 10/15/2020. FINDINGS: The visualized lung bases are unremarkable. The visualized portions of the heart are within normal limits. The liver is enlarged. There is evidence of pneumobilia in the nondependent bile ducts. No mass. There are surgical clips in the gallbladder fossa consistent with a prior cholecystectomy. Normal spleen. Normal pancreas. Normal bilateral adrenal glands. 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 Normal left kidney. Normal bilateral ureters. Poorly distended stomach. There are surgical clips along the greater curvature. Surgical clips in mildly distended small bowel loops in the left mid abdomen. The small bowel is otherwise unremarkable. A normal colon. There is evidence of a rectosigmoid anastomosis. There is non-visualization of the appendix. There is diffuse atherosclerotic calcification of the abdominal aorta, without a demonstrated aneurysm. Normal inferior vena cava. Normal retroperitoneum. Normal urinary bladder. Unremarkable vaginal cuff. No pelvic lymphadenopathy. No free air or free fluid is seen within the peritoneal cavity. Normal abdominal wall. There are diffuse degenerative changes of the visualized lumbar spine. CT/Abdomen/Pelvis without Cont IMPRESSION: No acute intra-abdominal processes or major interval change. Electronically Signed: Joon Holley DO at 23:51 EDT Reading Location ID and State: [address] [place] [address] Tel [phone], Service support ,
[2021-08-15 22:54] LABS: Squamous Epithelial Cells - UA 0-5 SEEN /hpf (5-10); White Blood Cells 0-5 SEEN /hpf (0-5)
[2021-08-15 23:53] VITALS: BP 166/79; PULSE 89; RESP 15; O2SAT 96
[2021-08-15] MEDS: oxyCODONE 5 MG Tablet 10 MG PO (23:53)
[2021-08-16 01:00] VITALS: BP 160/77; PULSE 86; RESP 15; O2SAT 97
== END 2021-08-16 01:02 | disposition home or self-care (01) ==
PROVIDERS: Emergency Provider Emergency Medicine; PCP Internal Medicine; Visit Provider Emergency Medicine
DX: R33.9 Retention of urine, unspecified (principal); I48.0 Paroxysmal atrial fibrillation; E11.9 Type 2 diabetes mellitus without complications; R19.7 Diarrhea, unspecified; D72.829 Elevated white blood cell count, unspecified; E78.5 Hyperlipidemia, unspecified; I10 Essential (primary) hypertension; R51.9 Headache, unspecified; R05.9 Cough, unspecified; R10.9 Unspecified abdominal pain; Z90.49 Acquired absence of other specified parts of digestive tract; Z90.710 Acquired absence of both cervix and uterus; Z86.718 Personal history of other venous thrombosis and embolism
CPT/HCPCS: 71045; 74176; 80053; 81001; 85025; 87086; 87811; 96361; 96374; 99285; P9612; A4216; J2405

== ENCOUNTER 2021-09-24 15:59 | Observation (INO) | payer MEDICARE, SELFPAY ==
[2021-09-24 16:01] VITALS: PULSE 72; RESP 16; TEMP 36.6; O2SAT 98; BMI 37.8
--- NOTE | 2021-09-24 16:15 | CT_ITS ---
STUDY: CT BRAIN WITHOUT CONTRAST REASON FOR EXAM: Female, 80 years old. confusion RADIATION DOSAGE (If Supplied By Facility): CTDIvol = ( 44.99 ) mGy, DLP = ( 812.98 ) mGycm TECHNIQUE: Transaxial CT imaging of the brain was performed without administration of intravenous contrast material. Individualized dose optimization techniques were used for this CT. COMPARISON: 01/17/2021 FINDINGS: Normal soft tissue structures. Normal calvarium. There is mild cerebral atrophy with widening of the extra-axial spaces and ventricular dilatation. There are areas of decreased attenuation within the white matter tracts of the supratentorial brain, consistent with microvascular disease changes. Normal basal ganglia and thalami. Normal brainstem. Normal cerebellum. There is no intracranial hemorrhage. There are no findings of an acute ischemic infarction. Normal visualized paranasal sinuses. CT/Brain/Head without Contrast IMPRESSION: Chronic involutional changes of the brain. Electronically Signed: Betito Russell MD at 18:04 EDT ,
--- NOTE | 2021-09-24 16:16 | EKG12_ITS ---
Test Reason : Confusion Blood Pressure : / mmHG Vent. Rate : 065 BPM Atrial Rate : 065 BPM P-R Int : 178 ms QRS Dur : 090 ms QT Int : 398 ms P-R-T Axes : 046 -20 196 degrees QTc Int : 413 ms Normal sinus rhythm Minimal voltage criteria for LVH, may be normal variant ( [place] product ) T wave abnormality, consider lateral ischemia Abnormal ECG Confirmed by SAMI BLAKE MD ([id number]), purchase request editor RICKIE NASCIMENTO ([id number]) on 09/26/2021 9:14:42 AM Referred By: Iftikhar Confirmed By:SAMI BLAKE MD
--- NOTE | 2021-09-24 16:17 | EDS_ITS ---
HPI History of Present Illness Chief Complaint: Confusion Narrative Narrative: 80-year-old female presenting with confusion. She does not have anyone with her on my initial exam. She states that she feels like she is at home only she is not there. She states she usually gets like this when she has a urinary tract infection. Apparently the patient's medication is prepackaged and she has not been taking it correctly. She states she was post to be treated for UTI. Patient is a poor informant with a poor memory. She does not believe she is on any falls or injury. Denies headache. Denies visual complaint. Denies chest pain or shortness of breath. Denies nausea or vomiting. Denies urinary symptoms. Denies abdominal pain [facility] Medical History Adult failure to thrive Anxiety DDD (degenerative disc disease) DVT (deep venous thrombosis) Essential (primary) hypertension History of DVT of lower extremity (05/2017) Hyperlipidemia Obesity Osteoarthritis Paroxysmal atrial fibrillation Segmental and somatic dysfunction of lumbar region Segmental and somatic dysfunction of pelvic region Segmental and somatic dysfunction of sacral region Segmental and somatic dysfunction of thoracic region Small bowel obstruction Type 2 diabetes mellitus whipple surgery Home Medications bumetanide 0.5 mg tablet 1 - 2 mg PO DAILY PRN Swelling 05/25/19 [History Last Taken Unknown] fluticasone propionate 50 mcg/actuation nasal spray,suspension 1 spray NASAL DAILY PRN Allergy Symptoms 05/25/19 [History Last Taken Unknown] metformin 500 mg tablet,extended release 24 hr 1,000 mg PO BID diabetes 05/25/19 [History Last Taken 10/06/20] atorvastatin 40 mg tablet 40 mg PO QHS cholesterol 12/11/19 [History Last Taken 10/06/20] atenolol 50 mg tablet 50 mg PO DAILY Patient needs follow up appt. for more refills #30 tabs 05/30/20 [Rx Last Taken 10/06/20] loratadine 10 mg tablet 10 mg PO DAILY ALLERGIES 10/06/20 [History Last Taken 10/06/20] rivaroxaban 20 mg tablet (Xarelto) 20 mg PO DAILY #30 tabs 10/08/20 [Rx Last Taken Unknown] amoxicillin 875 mg-potassium clavulanate 125 mg tablet (Augmentin) 1 tab PO Q12H #20 tabs 01/15/21 [Rx Last Taken Unknown] cephalexin 500 mg capsule 500 mg PO Q12 #14 caps 09/24/21 [Rx Last Taken Unknown] Allergy/AdvReac Type Severity Reaction Status Date / Time duloxetine [From Cymbalta] Allergy Other Verified 09/24/21 16:05 ramelteon [From Rozerem] Allergy Other Verified 09/24/21 16:05 bupropion AdvReac Other Verified 09/24/21 16:05 bupropion HCl AdvReac Other Verified 09/24/21 16:05 [From Wellbutrin] dexfenfluramine HCl AdvReac Unknown Verified 09/24/21 16:05 [From Redux] hydrochlorothiazide AdvReac Other Verified 09/24/21 16:05 ketorolac tromethamine AdvReac Itching Verified 09/24/21 16:05 [From Toradol] oxaprozin [From Daypro] AdvReac Other Verified 09/24/21 16:05 Family History Mother Myocardial infarction Father Asthma Surgical History H/O medial meniscus repair of right knee History of bilateral carpal tunnel release History of bladder suspension procedure History of bladder suspension procedure History of bowel resection History of hysterectomy History of hysterectomy Hx of cholecystectomy S/P cholecystectomy sigmoid colon removed vaginal wall repaired Social History Smoking Status: Never smoker second hand exposure: No alcohol intake: current alcohol intake frequency: holidays/special occasions only substance use type: does not use caffeine: Yes what type of physical activity do you participate in: none frequency: does not exercise seatbelt use: always ROS ROS ED Constitutional Constitutional ED: Denies chills or fever(s) Eyes Eyes: Denies change in vision or diplopia ENT ENT ED: Denies rhinorrhea or sore throat Cardiovascular Cardiovascular: Denies chest pain or palpitations Respiratory/Chest Respiratory/Chest: Denies cough or dyspnea Gastrointestinal Gastrointestinal: Denies abdominal pain, constipation, diarrhea, melena or nausea Genitourinary Genitourinary ED: Denies dysuria or hematuria Musculoskeletal Musculoskeletal: Denies arthralgias or back pain Integumentary Denies abscess or Abrasions Neurologic Neurologic: Reports other Details: Confusion ; Denies headache(s), paresthesias or weakness Psychiatric Psychiatric: Denies anxiety or depression EXAM Physical Exam Const Vital Signs: 09/24/21 16:01 09/24/21 17:27 09/24/21 18:25 Temperature 97.8 F Temperature Source Oral Pulse Rate 72 68 70 Respiratory Rate 16 16 12 Blood Pressure 176/91 H Blood Pressure Mean 119 Pulse Ox 98 96 94 Oxygen Delivery Method Room Air Room Air Room Air Positive well nourished General Appearance ED: NAD; Negative for pallor HEENT Reports moist mucous membranes Negative for trauma Eyes PERRL and EOMs intact bilaterally Chest Wall inspection of chest normal Resp normal respiratory effort and clear to auscultation bilaterally Auscultation: Negative for rales, rhonchi or wheezes Cardio regular rate and regular rhythm GI normal to inspection, nondistended, normoactive bowel sounds Back/Spine no CVA tenderness Neuro CN's II-XII intact bilaterally and no sensory deficits noted Sensorium / Orientation: alert and orientation impaired Psych Psych Narrative: Slightly confused but is awake and answering questions. She is alert to self and situation. Skin no rashes or lesions noted General Skin Exam: Negative for jaundice or pallor MDM MDM MDM Narrative Medical decision making narrative: Patient presenting with confusion. She reports that she has a recent history of UTIs not taking medications. She has no focal neurologic deficits on exam. Vital signs are stable she is afebrile. Lab was obtained and her CBC is within normal limits. CMP shows a mildly elevated glucose of 244 without anion gap. Renal function is normal. EtOH negative. Ammonia level is normal. EKG on my interpretation shows normal sinus rhythm with a ventricular rate of 65 bpm without sign of ischemic change or dysrhythmia. Chest x-ray on my interpretation shows no acute cardiopulmonary process and radiologist agree. CT brain was obtained and is negative for acute intracranial pathology. Urinalysis came back with positive nitrites and 100 leukocyte esterase. Patient given a dose of Rocephin. Urine culture is sent. I went to reevaluate the patient at 7:15 PM. Patient is awake and alert. Vital signs are normal. Her daughter is now here in the room. She states I want to admit my mom to the hospital. I asked her what her goal would be for admission, and she became very agitated and angry. I explained to her that I just needed to differentiate to the hospitalist whether she needed mcc, an observation stay, or assisted living so that we can make a plan. At this point she became calm. She states that she will take her mom home. She can stay and observe her. She will give her antibiotics. I offered to call the hospitalist and she declined. I counseled her if she has any worsening of her symptoms to have her turn to the emergency room. Impression: 1. Bladder infection 2. Confusion 3. Hyperglycemia Lab Data Labs: Laboratory Results - last 24 hr 09/24/21 09/24/21 09/24/21 17:00 17:00 17:00 WBC 5.5 RBC 5.13 Hgb 15.3 H Hct 45.6 MCV 88.9 MCH 29.8 MCHC 33.6 RDW Std Deviation 42.2 RDW Coeff of Viviane 12.9 Plt Count 175 MPV 9.8 Immature Gran % (Auto) 1.100 H Neut % (Auto) 58.4 Lymph % (Auto) 32.1 [place]clenn[place] % (Auto) 6.2 Eos % (Auto) 1.3 Baso % (Auto) 0.9 Absolute Neuts (auto) 3.2 Absolute Lymphs (auto) 1.77 Nucleated RBC % 0 Sodium 139 Potassium 4.0 Chloride 104 Carbon Dioxide 30.0 Anion Gap 5 BUN 9 Creatinine 0.72 Estim Creat Clear Calc 37.74 Est GFR (MDRD) Af Amer 101 Est GFR (MDRD) Non-Af 83 BUN/Creatinine Ratio 12.6 Glucose 244 H Calcium 10.7 H Total Bilirubin 0.70 AST 17 ALT 21 Alkaline Phosphatase 80 Ammonia Troponin I High Sens 9 Total Protein 7.9 Albumin 3.9 Globulin 4.0 Albumin/Globulin Ratio 1.0 Urine Color Urine Clarity Urine pH Ur Specific [place] Urine Protein Urine Glucose (UA) Urine Ketones Urine Occult Blood Urine Nitrite Urine Bilirubin Urine Urobilinogen Ur Leukocyte Esterase Ur Drug Screen Comment Ethyl Alcohol < 3.0 09/24/21 09/24/21 09/24/21 17:00 18:41 18:41 WBC RBC Hgb Hct MCV MCH MCHC RDW Std Deviation RDW Coeff of Viviane Plt Count MPV Immature Gran % (Auto) Neut % (Auto) Lymph % (Auto) Mclennan % (Auto) Eos % (Auto) Baso % (Auto) Absolute Neuts (auto) Absolute Lymphs (auto) Nucleated RBC % Sodium Potassium Chloride Carbon Dioxide Anion Gap BUN Creatinine Estim Creat Clear Calc Est GFR (MDRD) Af Amer Est GFR (MDRD) Non-Af BUN/Creatinine Ratio Glucose Calcium Total Bilirubin AST ALT Alkaline Phosphatase Ammonia 13.0 Troponin I High Sens Total Protein Albumin Globulin Albumin/Globulin Ratio Urine Color Yellow Urine Clarity Clear Urine pH 7.0 Ur Specific [place] 1.010 Urine Protein Negative Urine Glucose (UA) 100 H Urine Ketones 5 H Urine Occult Blood Negative Urine Nitrite Positive H Urine Bilirubin Negative Urine Urobilinogen Normal Ur Leukocyte Esterase 100 H Ur Drug Screen Comment Ethyl Alcohol Radiography Diagnostic Testing: Clinical Impression(s) from Imaging Studies Brain CT 09/24/21 16:15 IMPRESSION: Chronic involutional changes of the brain. Electronically Signed: Betito Russell MD at 18:04 EDT Reading Location ID and State: [id number] / [employer] Tel , Service support , Chest X-Ray 09/24/21 17:48 IMPRESSION: Poor inspiration with some bibasilar atelectasis. Electronically Signed: Betito Russell MD at 17:58 EDT Reading Location ID and State: [id number] / [employer] Tel , Service support , Discharge Plan Triage Chief Complaint: Confusion ED Provider: Christiano Buitrago Dx/Rx/DC Orders Instructions: ED ALOC, ED CYSTITIS Female Adult Prescriptions: New cephalexin 500 mg capsule 500 mg PO Q12 Qty: 14 0RF No Action bumetanide 0.5 MG tablet 1 - 2 mg PO DAILY PRN (Reason: Swelling) metformin 500 MG tablet 1,000 mg PO BID fluticasone propionate 1 SPRAY spray,suspension 1 spray NASAL DAILY PRN (Reason: Allergy Symptoms) atorvastatin 40 MG tablet 40 mg PO QHS loratadine 10 mg tablet 10 mg PO DAILY Xarelto 20 mg tablet 20 mg PO DAILY Qty: 30 0RF Rx Instructions: must administer with evening meal amoxicillin-pot clavulanate [Augmentin] 875-125 mg tablet 1 tab PO Q12H Qty: 20 0RF atenolol 50 mg tablet 50 mg PO DAILY Qty: 30 11RF Primary Care Provider: Luanne Aquino Referrals: Luanne Aquino MD [Primary Care Provider] - Disposition Disposition: Home, Self Care
[2021-09-24 17:22] LABS: Absolute Lymphocyte Count 1.77 X10^3/uL (0.83-4.51); Absolute Neutrophil Count 3.2 X10^3/uL (2.0-7.7); Basophil# 0.05 X10^3/uL; Basophil% 0.9 % (0-1); Eosinophil# 0.07 X10^3/uL; Eosinophils% 1.3 % (0-5); Hematocrit 45.6 % (37-47); Hemoglobin 15.3 g/dL (12.0-15.0); Lymphocyte # 1.77 X10^3/ul (0.83-4.51); Lymphocyte % 32.1 % (19-41); Mean Corp Hgb Conc 33.6 g/dL (32-36); Mean Corpuscular Hgb 29.8 pg (27.0-32.0); Mean Corpuscular Volume 88.9 fL (81-99); Mean Platelet Vol. 9.8 fl (6.2-12.0); Monocyte# 0.34 X10^3/uL; Monocyte% 6.2 % (0-10); NRBC Flagged by Analyzer 0 % (0-5); Neutrophil # 3.22 X10^3/uL (2.7-7.7); Neutrophil % 58.4 % (47-70); Platelet Count 175 K/mm3 (150-450); RBC Distribution Width CV 12.9 % (11.6-14.6); RBC Distribution Width SD 42.2 fl (35.1-43.9); Red Blood Count 5.13 M/mm3 (4.2-5.4); White Blood Count 5.5 K/mm3 (4.4-11.0)
[2021-09-24 17:27] VITALS: BP 176/91; PULSE 68; RESP 16; O2SAT 96
[2021-09-24 17:33] LABS: Alcohol, Blood (Medical)-Serum < 3.0 mg/dL
[2021-09-24 17:40] LABS: AST(SGOT) 17 U/L (15-37); Alanine Aminotransfer ALT/SGPT 21 U/L (13-56); Albumin, Serum 3.9 g/dL (3.2-5.0); Alkaline Phosphatase 80 U/L (45-117); Anion Gap 5 (5-15); BUN 9 mg/dL (7-18); BUN/Creat Ratio 12.6 RATIO (10-20); Calcium,Total 10.7 mg/dL (8.5-10.1); Chloride 104 mmol/L (98-107); Creatinine, Serum 0.72 mg/dL (0.55-1.02); EST Glomerular Filtration Rate 83 mL/min (>60); Est Glom Filt Rate - Afr Amer 101 mL/min (>60); Estimated Creatinine Clearance 37.74 ml/min; Glucose 244 mg/dL (74-106); Protein, Total 7.9 g/dL (6.4-8.2); Sodium Level 139 mmol/L (136-145); Troponin-I HS 9 pg/mL (3.0-54.0)
--- NOTE | 2021-09-24 17:48 | RAD_ITS ---
STUDY: X-RAY CHEST REASON FOR EXAM: Female, 80 years old. confusion TECHNIQUE: Single AP portable view of the chest. COMPARISON: 01/17/2021 FINDINGS: Poor inspiration with some bibasilar atelectasis. There is no demonstrated pleural abnormality. Normal size heart. Normal mediastinum and deondre. Normal visualized pulmonary arteries. Normal visualized aortic arch and descending thoracic aorta. Normal visualized thoracic spine. Normal visualized ribs, clavicles, and shoulders. There is no demonstrated abnormality of the visualized soft tissue structures of the upper abdomen. RAD/Chest 1 View (Portable) IMPRESSION: Poor inspiration with some bibasilar atelectasis. Electronically Signed: Betito Russell MD at 17:58 EDT ,
[2021-09-24 18:25] VITALS: PULSE 70; RESP 12; O2SAT 94
[2021-09-24 18:47] LABS: Mucous, Urine 0 SEEN /hpf (<or=2+); Red Blood Cells-Urine 0 SEEN /hpf (0-5); Squamous Epithelial Cells - UA 0 SEEN /hpf (5-10)
[2021-09-24 18:55] LABS: Color, Urine Yellow (Yellow); Glucose, Dipstick 100 mg/dl (Normal); Ketone-Dipstick 5 mg/dl (Negative); Leukocyte Esterase-Dipstick 100 /ul (Negative); Nitrite-Dipstick Positive (Negative); Occult Blood-Urine Negative /ul (Negative); Protein-Dipstick Negative (Negative); Urine Bilirubin Dipstick Negative (Negative); Urine Clarity Clear (Clear); Urine Urobilinogen Normal (Normal)
[2021-09-24 19:16] LABS: Amphetamine Urine VISTA NEGATIVE (<1000 ng/mL); Barbiturate Urine VISTA NEGATIVE (< 200 ng/mL); Benzodiazepine Urine VISTA POSITIVE (< 200 ng/mL); Cocaine Urine VISTA NEGATIVE (< 300 ng/mL); Ecstacy Urine VISTA NEGATIVE (< 500 ng/mL); Methadone Urine VISTA NEGATIVE (< 300 ng/mL); PCP Urine VISTA NEGATIVE (< 25 ng/mL); THC Urine VISTA NEGATIVE (< 50 ng/mL); Vista UDS pH Range 7
[2021-09-24 19:21] VITALS: BP 166/82; PULSE 63; RESP 16; O2SAT 98
[2021-09-24] MEDS: Ceftriaxone 1 GM/50 ML BAG IV (19:22)
[2021-09-24 19:33] LABS: Bacteria 4+ /hpf (None Seen); White Blood Cells 10-25 SEEN /hpf (0-5)
--- NOTE | 2021-09-24 20:05 | HP.PCM.HOS_ITS ---
HPI - General General Date of Admission: 09/24/21 Date of Service: 09/24/21 Chief Complaint: Confusion - over the last couple days HPI Narrative LAURA MARTIN, is a 80 F who presents with the above. 80-year-old female with past medical history of hypertension, type II DM, probably dementia, who lives alone and comes in confused. History was taken from the patient and her daughter at the bedside. Patient is alert oriented x2 but not to time. She could not state why year week in, season or month or day of the week. She admitted that she knows that her memory is not right. She denied any dysuria but admits to incontinence of urine. Denied any fever or chills. Her daughter states that patient has been confused for the last few days. She was recently on antibiotics for UTI. She typically gets confused when she gets UTIs. She was last discharged after hospital stay on 01/19/2021 with acute metabolic encephalopathy secondary to acute UTI and use of narcotics. Patient's oxycodone was discontinued at discharge. Patient however stated that patient is back on oxycodone and alprazolam. Patient gets her medications usually in the group pack except for her alprazolam and oxycodone. She denied any back pain to me. There is concern that the patient is unable to take care of self herself and lives alone. Vitals in the ED showed blood pressure 176/91, heart rate 72, respiratory 16, temperature 97.8, oxygen sat is 98% on room air. WBC is 5.5, hemoglobin 15.3, up from 14.2. CMP showed glucose of 244, calcium 10.7. UA is clear, nitrite positive, leukocyte estrace positive. 4+ bacteria. Urine tox is positive for benzos. CT of the brain showed chronic involuntary changes of the brain. Chest x-ray showed poor inspiration with some bibasilar atelectasis. [facility] Medical History Adult failure to thrive Anxiety DDD (degenerative disc disease) DVT (deep venous thrombosis) Essential (primary) hypertension History of DVT of lower extremity (05/2017) Hyperlipidemia Obesity Osteoarthritis Paroxysmal atrial fibrillation Segmental and somatic dysfunction of lumbar region Segmental and somatic dysfunction of pelvic region Segmental and somatic dysfunction of sacral region Segmental and somatic dysfunction of thoracic region Small bowel obstruction Type 2 diabetes mellitus whipple surgery Home Medications bumetanide 0.5 mg tablet 1 - 2 mg PO DAILY PRN Swelling 05/25/19 [History Last Taken Unknown] fluticasone propionate 50 mcg/actuation nasal spray,suspension 1 spray NASAL DAILY PRN Allergy Symptoms 05/25/19 [History Last Taken Unknown] metformin 500 mg tablet,extended release 24 hr 1,000 mg PO BID diabetes 05/25/19 [History Last Taken 10/06/20] atorvastatin 40 mg tablet 40 mg PO QHS cholesterol 12/11/19 [History Last Taken 10/06/20] loratadine 10 mg tablet 10 mg PO DAILY ALLERGIES 10/06/20 [History Last Taken 10/06/20] rivaroxaban 20 mg tablet (Xarelto) 20 mg PO DAILY #30 tabs 10/08/20 [Rx Last Taken Unknown] alprazolam 0.5 mg tablet 1 tab PO QHS sleep 09/24/21 [History Last Taken Unknown] atenolol 50 mg tablet 50 mg PO DAILY blood pressure 09/24/21 [History Last Taken Unknown] oxycodone-acetaminophen 7.5 mg-325 mg tablet 1 tab PO TID pain 09/24/21 [History Last Taken Unknown] Allergy/AdvReac Type Severity Reaction Status Date / Time duloxetine [From Cymbalta] Allergy Other Verified 09/24/21 16:05 ramelteon [From Rozerem] Allergy Other Verified 09/24/21 16:05 bupropion AdvReac Other Verified 09/24/21 16:05 bupropion HCl AdvReac Other Verified 09/24/21 16:05 [From Wellbutrin] dexfenfluramine HCl AdvReac Unknown Verified 09/24/21 16:05 [From Redux] hydrochlorothiazide AdvReac Other Verified 09/24/21 16:05 ketorolac tromethamine AdvReac Itching Verified 09/24/21 16:05 [From Toradol] oxaprozin [From Daypro] AdvReac Other Verified 09/24/21 16:05 Family History Mother Myocardial infarction Father Asthma Surgical History H/O medial meniscus repair of right knee History of bilateral carpal tunnel release History of bladder suspension procedure History of bladder suspension procedure History of bowel resection History of hysterectomy History of hysterectomy Hx of cholecystectomy S/P cholecystectomy sigmoid colon removed vaginal wall repaired Social History Smoking Status: Never smoker second hand exposure: No alcohol intake: current alcohol intake frequency: holidays/special occasions only substance use type: does not use caffeine: Yes what type of physical activity do you participate in: none frequency: does not exercise seatbelt use: always ROS ROS Narrative A full ROS cannot be obtained as patient is intermittently confused while taking the history Review of Systems ROS Unobtainable: due to encephalopathy Vital Signs Vital Signs Vital Signs: 09/24/21 16:01 09/24/21 17:27 09/24/21 18:25 Temperature 97.8 F Temperature Source Oral Pulse Rate 72 68 70 Respiratory Rate 16 16 12 Blood Pressure 176/91 H Blood Pressure Mean 119 Pulse Ox 98 96 94 Oxygen Delivery Method Room Air Room Air Room Air 09/24/21 19:21 Temperature Temperature Source Pulse Rate 63 Respiratory Rate 16 Blood Pressure 166/82 H Blood Pressure Mean Pulse Ox 98 Oxygen Delivery Method Weight Weight: 96.7 kg Body Mass Index (BMI) 37.8 Physical Exam Narrative Physical exam: General: Alert, Oriented x2, pale, no jaundice, well-hydrated, obese HEENT: Atraumatic Oral: Moist Mucosa Neck: Supple Lungs: Diminished to auscultation Cardiovascular: HS I+II, regular, no murmurs Abdomen: Bowel Sounds Present, Soft, Non Tender Extremities: No edema Skin: No rashes, No breakdown Neurological: Grossly intact Psych/Mental Status: Appropriate Results Lab / Micro Data Result Diagrams: 09/24/21 17:00 09/24/21 17:00 Labs: Laboratory Results - last 24 hr 09/24/21 17:00: WBC 5.5, RBC 5.13, Hgb 15.3 H, Hct 45.6, MCV 88.9, MCH 29.8, MCHC 33.6, RDW Std Deviation 42.2, RDW Coeff of Viviane 12.9, Plt Count 175, MPV 9.8, Immature Gran % (Auto) 1.100 H, Neut % (Auto) 58.4, Lymph % (Auto) 32.1, [place] % (Auto) 6.2, Eos % (Auto) 1.3, Baso % (Auto) 0.9, Absolute Neuts (auto) 3.2, Absolute Lymphs (auto) 1.77, Nucleated RBC % 0 09/24/21 17:00: Sodium 139, Potassium 4.0, Chloride 104, Carbon Dioxide 30.0, Anion Gap 5, BUN 9, Creatinine 0.72, Estim Creat Clear Calc 37.74, Est GFR (MDRD) Af Amer 101, Est GFR (MDRD) Non-Af 83, BUN/Creatinine Ratio 12.6, Glucose 244 H, Calcium 10.7 H, Total Bilirubin 0.70, AST 17, ALT 21, Alkaline Phosphatase 80, Troponin I High Sens 9, Total Protein 7.9, Albumin 3.9, Globulin 4.0, Albumin/Globulin Ratio 1.0 09/24/21 17:00: Ethyl Alcohol < 3.0 09/24/21 17:00: Ammonia 13.0 09/24/21 18:41: Urine Color Yellow, Urine Clarity Clear, Urine pH 7.0, Ur Specific [place] 1.010, Urine Protein Negative, Urine Glucose (UA) 100 H, Urine Ketones 5 H, Urine Occult Blood Negative, Urine Nitrite Positive H, Urine Bilirubin Negative, Urine Urobilinogen Normal, Ur Leukocyte Esterase 100 H, Urine RBC 0 SEEN, Urine WBC 10-25 SEEN, Ur Squamous Epith Cells 0 SEEN, Urine Bacteria 4+, Urine Mucus 0 SEEN 09/24/21 18:41: Urine Opiates Screen NEGATIVE, Urine Methadone Screen NEGATIVE, Ur Barbiturates Screen NEGATIVE, Ur Phencyclidine Scrn NEGATIVE, Ur Amphetamines Screen NEGATIVE, MDMA (Ecstasy) Screen NEGATIVE, U Benzodiazepines Scrn POSITIVE H, Urine Cocaine Screen NEGATIVE, U Cannabinoids Screen NEGATIVE, Ur Drug Screen Comment Radiology Impression Brain CT 09/24/21 16:15 IMPRESSION: Chronic involutional changes of the brain. Electronically Signed: Betito Russell MD at 18:04 EDT , Chest X-Ray 09/24/21 17:48 IMPRESSION: Poor inspiration with some bibasilar atelectasis. Electronically Signed: Betito Russell MD at 17:58 EDT , Assessment & Plan Assessment/Plan (1) Acute UTI: PLAN: Plan 1. Acute toxic/metabolic encephalopathy in a patient with baseline cognitive impairment, history of recurrent UTI Probable etiology for current encephalopathy is multifactorial Patient recently completed antibiotics for UTI, UA suggestive of UTI Patient's urine tox is positive for benzodiazepines but not for opioids Will be monitored, consult for discharge planning 2. Probable Acute UTI, history of recurrent UTI Patient's previous urine cultures showed mixed gram-positive and negative organisms Her UA is clear but nitrites, leukocyte and bacteria are present This may be because patient recently finished antibiotics according to her daughter Started on IV ceftriaxone, urine culture sent, continue IV ceftriaxone 3. Type 2 DM, on metformin at home Continue metformin, add insulin sliding scale with blood glucose checks 4. Polycythemia, likely reactive, hemoglobin elevated to 15.3, previous level was 14.2 suspected dehydration Repeat blood work in a.m. 5. Hypercalcemia, corrected calcium of 10.8 Not on oral calcium or vitamin D Will check PTH, phosphorus, vitamin D 6. Hypertension/hyperlipidemia/paroxysmal atrial fibrillation Continue atenolol, Xarelto 7. History of abdominal surgeries, status post Whipple surgery, chronic pancreatitis 8. DVT PPx-on Xarelto I discussed and explained in details the various types of CODE STATUS-full code, DNR CCA, DNR CC. According to patient's daughter who is a healthcare power of application packager, [place], patient said previously that she wanted to be DNR CCA, no intubation Time spent discussing CODE STATUS 16 minutes Charges/Coding Visit Charges OBSV E&M: 68048 Initial observation care L3 Procedures Hospitalists Procedures: 16680 Advncd Care Plan 30 Min
[2021-09-24 20:26] VITALS: BP 152/93; PULSE 60; RESP 12; TEMP 36.3; O2SAT 98
[2021-09-24] MEDS: 0.9% Saline Lock 10 ML Syringe IV (21:01)
[2021-09-24] MEDS: 0.9% Normal Saline 1,000 ML 75 ML IV (21:01)
[2021-09-24 21:04] VITALS: BMI 35.4
[2021-09-24 21:06] VITALS: BP 147/78; PULSE 62; RESP 18; TEMP 36.6; O2SAT 98
[2021-09-24] MEDS: Acetaminophen 325 MG Tablet 650 MG PO (21:42)
[2021-09-24] MEDS: Insulin Lispro 100 UNIT/ML INSULN.PEN SC (22:51)
[2021-09-24 23:05] LABS: Bedside Glucose 178 mg/dL (74-106)
--- NOTE | 2021-09-24 23:21 | NURSING ---
Dr. Ortega requested that we obtain the patient's med list from her pharmacy.
[2021-09-25] MEDS: Menthol/Lanolin/Calamine/Znox 113 GM Tube 1 APPLIC TOPICAL ×2 (02:27→22:04)
[2021-09-25] MEDS: Nystatin Powder 15gm Bottle 1 APPLIC TOPICAL ×2 (02:27→22:04)
[2021-09-25 02:45] VITALS: BP 157/79; PULSE 58; RESP 18; TEMP 36.9; O2SAT 98
[2021-09-25 06:04] LABS: Absolute Lymphocyte Count 2.57 X10^3/uL (0.83-4.51); Absolute Neutrophil Count 2.1 X10^3/uL (2.0-7.7); Basophil# 0.03 X10^3/uL; Basophil% 0.6 % (0-1); Eosinophil# 0.08 X10^3/uL; Eosinophils% 1.6 % (0-5); Hematocrit 43.8 % (37-47); Hemoglobin 13.6 g/dL (12.0-15.0); Lymphocyte # 2.57 X10^3/ul (0.83-4.51); Lymphocyte % 50.5 % (19-41); Mean Corp Hgb Conc 31.1 g/dL (32-36); Mean Corpuscular Hgb 29.8 pg (27.0-32.0); Mean Corpuscular Volume 95.8 fL (81-99); Mean Platelet Vol. 10.8 fl (6.2-12.0); Monocyte% 5.9 % (0-10); NRBC Flagged by Analyzer 0 % (0-5); Neutrophil # 2.06 X10^3/uL (2.7-7.7); Neutrophil % 40.4 % (47-70); POSITIVE COUNT YES; Platelet Count 81 K/mm3 (150-450); RBC Distribution Width CV 12.9 % (11.6-14.6); RBC Distribution Width SD 45.7 fl (35.1-43.9); Red Blood Count 4.57 M/mm3 (4.2-5.4); White Blood Count 5.1 K/mm3 (4.4-11.0)
[2021-09-25 06:05] LABS: Differential Indicated SCAN CRITERIA MET
[2021-09-25] MEDS: Insulin Lispro 100 UNIT/ML INSULN.PEN SC ×4 (06:16→22:09)
[2021-09-25] MEDS: 0.9% Normal Saline 1,000 ML 100 ML IV ×2 (06:19→15:34)
[2021-09-25 06:20] LABS: Platelet Estimate MOD DEC (ADEQ); Platelet Morphology CLUMPED
[2021-09-25 06:30] LABS: AST(SGOT) 33 U/L (15-37); Alanine Aminotransfer ALT/SGPT 21 U/L (13-56); Albumin, Serum 3.2 g/dL (3.2-5.0); Alkaline Phosphatase 72 U/L (45-117); Anion Gap 6 (5-15); BUN 8 mg/dL (7-18); BUN/Creat Ratio 13.5 RATIO (10-20); Calcium,Total 9.5 mg/dL (8.5-10.1); Chloride 105 mmol/L (98-107); Creatinine, Serum 0.59 mg/dL (0.55-1.02); EST Glomerular Filtration Rate 104 mL/min (>60); Est Glom Filt Rate - Afr Amer 125 mL/min (>60); Estimated Creatinine Clearance 39.39 ml/min; Globulin 3.3 g/dL (2.2-4.2); Glucose 203 mg/dL (74-106); Protein, Total 6.5 g/dL (6.4-8.2); Sodium Level 139 mmol/L (136-145)
[2021-09-25 06:51] LABS: Bedside Glucose 188 mg/dL (74-106)
--- NOTE | 2021-09-25 07:16 | PCM.PN.HOSP ---
Subjective Subjective 80-year-old lady admitted with altered mental status found to have acute cystitis Objective Data Objective Data Vital Signs: Vital Signs Temp Pulse Resp BP Pulse Ox O2 Del Method 98.5 F 58 L 18 157/79 H 98 Room Air 09/25/21 02:45 09/25/21 02:45 09/25/21 02:45 09/25/21 02:45 09/25/21 02:45 09/25/21 02:48 Oxygen Delivery Method Room Air Weight: 93.6 kg Body Mass Index (BMI) 35.4 Intake & Output: Intake and Output for Last 24 Hours 09/23/21 09/24/21 09/25/21 23:59 23:59 23:59 Intake Total 380 / 380 705 / 705 Balance 380 / 380 705 / 705 Lab / Micro Data Result Diagrams: 09/25/21 05:45 09/25/21 05:45 Labs: Laboratory Results - last 24 hr 09/24/21 17:00: WBC 5.5, RBC 5.13, Hgb 15.3 H, Hct 45.6, MCV 88.9, MCH 29.8, MCHC 33.6, RDW Std Deviation 42.2, RDW Coeff of Viviane 12.9, Plt Count 175, MPV 9.8, Immature Gran % (Auto) 1.100 H, Neut % (Auto) 58.4, Lymph % (Auto) 32.1, [place] % (Auto) 6.2, Eos % (Auto) 1.3, Baso % (Auto) 0.9, Absolute Neuts (auto) 3.2, Absolute Lymphs (auto) 1.77, Nucleated RBC % 0 09/24/21 17:00: Sodium 139, Potassium 4.0, Chloride 104, Carbon Dioxide 30.0, Anion Gap 5, BUN 9, Creatinine 0.72, Estim Creat Clear Calc 37.74, Est GFR (MDRD) Af Amer 101, Est GFR (MDRD) Non-Af 83, BUN/Creatinine Ratio 12.6, Glucose 244 H, Calcium 10.7 H, Total Bilirubin 0.70, AST 17, ALT 21, Alkaline Phosphatase 80, Troponin I High Sens 9, Total Protein 7.9, Albumin 3.9, Globulin 4.0, Albumin/Globulin Ratio 1.0 09/24/21 17:00: Ethyl Alcohol < 3.0 08/07/22 17:00: Ammonia 13.0 09/24/21 18:41: Urine Color Yellow, Urine Clarity Clear, Urine pH 7.0, Ur Specific [place] 1.010, Urine Protein Negative, Urine Glucose (UA) 100 H, Urine Ketones 5 H, Urine Occult Blood Negative, Urine Nitrite Positive H, Urine Bilirubin Negative, Urine Urobilinogen Normal, Ur Leukocyte Esterase 100 H, Urine RBC 0 SEEN, Urine WBC 10-25 SEEN, Ur Squamous Epith Cells 0 SEEN, Urine Bacteria 4+, Urine Mucus 0 SEEN 09/24/21 18:41: Urine Opiates Screen NEGATIVE, Urine Methadone Screen NEGATIVE, Ur Barbiturates Screen NEGATIVE, Ur Phencyclidine Scrn NEGATIVE, Ur Amphetamines Screen NEGATIVE, MDMA (Ecstasy) Screen NEGATIVE, U Benzodiazepines Scrn POSITIVE H, Urine Cocaine Screen NEGATIVE, U Cannabinoids Screen NEGATIVE, Ur Drug Screen Comment 09/24/21 22:42: POC Glucose 178 H 09/25/21 05:45: WBC 5.1, RBC 4.57, Hgb 13.6, Hct 43.8, MCV 95.8 D, MCH 29.8, MCHC 31.1 L D, RDW Std Deviation 45.7 H, RDW Coeff of Viviane 12.9, Plt Count 81 L, MPV 10.8, Immature Gran % (Auto) 1.000 H, Neut % (Auto) 40.4 L, Lymph % (Auto) 50.5 H, [place] % (Auto) 5.9, Eos % (Auto) 1.6, Baso % (Auto) 0.6, Absolute Neuts (auto) 2.1, Absolute Lymphs (auto) 2.57, Nucleated RBC % 0, Platelet Estimate MOD DEC, Plt Morphology Comment CLUMPED 09/25/21 05:45: Sodium 139, Potassium 4.0, Chloride 105, Carbon Dioxide 28.0, Anion Gap 6, BUN 8, Creatinine 0.59, Estim Creat Clear Calc 39.39, Est GFR (MDRD) Af Amer 125, Est GFR (MDRD) Non-Af 104, BUN/Creatinine Ratio 13.5, Glucose 203 H, Calcium 9.5, Phosphorus 3.0, Total Bilirubin 0.70, AST 33, ALT 21, Alkaline Phosphatase 72, Total Protein 6.5, Albumin 3.2, Globulin 3.3, Albumin/Globulin Ratio 1.0 09/25/21 06:15: POC Glucose 188 H Radiography Diagnostic Testing: Radiology Impression Brain CT 09/24/21 16:15 IMPRESSION: Chronic involutional changes of the brain. Electronically Signed: Betito Russell MD at 18:04 EDT , Chest X-Ray 09/24/21 17:48 IMPRESSION: Poor inspiration with some bibasilar atelectasis. Electronically Signed: Betito Russell MD at 17:58 EDT , Physical Exam Narrative GENERAL: cooperative HEENT: Atraumatic; EYES; Anicteric, Normal Conjunctiva NECK; supple, normal thyroid, RESPIRATORY: Diminished to auscultation CARDIOVASCULAR: Regular S1 S2, GI: soft, normoactive bowel sounds, : No Renal angle tenderness; EXTREMITIES: No edema, no clubbing, MUSCULOSKELETAL: no muscle wasting NEURO: Awake; no lateralizing signs. SKIN: No Rash PSYCH; Flat affect Assessment & Plan Assessment/Plan (1) Acute UTI: PLAN: Plan 80-year-old lady admitted with altered mental status found to have acute cystitis 1. Acute metabolic encephalopathy ? Thought to be secondary to UTI as well as medication induced. Patient urine tox was positive for benzos. Admitted to regular nursing floor for treatment of underlying etiology 2. Acute cystitis ? Patient apparently has history of recurrent UTIs. Started on Rocephin urine culture sent. Plan is to either continue with current antibiotic, adjust accordingly based on results of cultures 3. Diabetes mellitus type II -patient's oral hypoglycemics held. Placed on Accu-Cheks a.c. and at bedtime and covered with sliding scale insulin added long-acting insulin in view of patient hyperglycemia 4. Hypertension - Blood pressure controlled, home medications continued with dose adjustment as needed 5. Dyslipidemia -Patient is on statin therapy, continued at home dose 6. Dehydration ? As evidenced by markedly elevated hemoglobin admission which has since normalized following IV fluid administration ? Subsequent monitoring with daily CBC and BMP is ordered 7. Hypercalcemia ? Also thought to be secondary to dehydration normalized with rehydration ? Subsequent monitoring with daily BMPs ordered 8. Paroxysmal A. fib ? Rate controlled on atenolol on systemic anticoagulation with Xarelto 9. DVT prophylaxis ? On Xarelto Charges/Coding Visit Charges OBSV E&M: 26904 Subsequent observation care L3
[2021-09-25 08:45] VITALS: BP 159/109; PULSE 69; RESP 18; TEMP 36.6; O2SAT 98
[2021-09-25] MEDS: Loratadine 10 MG Tablet PO (10:40)
[2021-09-25] MEDS: Atenolol 50 MG Tablet PO (10:42)
--- NOTE | 2021-09-25 11:30 | CASEMGMT ---
Addendum entered by Jessica Bridges 09/25/21 11:52: TC to pt dtr Dixie to discuss dc planning. She states that her mother typically functions on her own but when she gets UTI's, she gets confused. Pt dtr states that the correction plan is for her mother and her to live together but that will not be immediately after this hospital stay. Discussed having HHC in the home and dtr states she will have to talk to her mother about this as she does not typically like to have people in her home. Dtr states she is the only one who assists patient and visits daily. States pt does her own cooking and laundry. RN CM to follow. Original Note: RN CM Assessment: Face to Face with pt for initial transition planning/care coordination assessment. RN CM introduced self and role at [facility], pt voices understanding and consents to assessment. Pt is A/O x2, pt did not know date or president. Care providers, pharmacy, and demographics verified/updated. Admitting Dx: Delirium/UTI PCP: Kenia Specialists: Pt denies. Preferred Pharmacy: [facility] Insurance: [employer] [facility] Prescription Benefit: yes LW/HPOA: Pt reports she has a LW/DPOA and her dtr is her DPOA, Dixie Roman. She is aware that this is not on file at [facility] and she may bring in to be scanned into the chart. LNOK: Dixie Rizvin, dtr; Goyo Parrish, son Living Arrangements: Pt lives alone in a single story house with 2 steps to enter in front with a rail and no steps if she goes through the garage. Pt reports she is typically I in ADL's and denies concerns at home. Transportation: Pt drives self and denies concerns with transportation. DME/HHC/SNF: Pt has a cane, FWW, shower chair and grab bars in the bathroom. Pt denies hx of HHC or SNF stays. Pt states no concerns with going home at time of dc. She states her dtr is planning on moving in with her. She denies any homegoing needs. Pt states no further concerns/needs. CM to follow. Advised pt to ask CM if any further question/concerns/needs arise, voices understanding. Pt Goal: Home Plan: TBD
[2021-09-25 12:30] LABS: Bedside Glucose 281 mg/dL (74-106)
[2021-09-25 15:30] VITALS: BP 145/87; PULSE 78; RESP 18; TEMP 36.7; O2SAT 95
[2021-09-25] MEDS: Rivaroxaban 20 MG Tablet PO (15:35)
--- NOTE | 2021-09-25 15:46 | CASEMGMT ---
Social Work Per RNCM, pt confirms she has a living will and health care POA naming her daughter Dixie Roman. Pt is aware they are not on file and it has been requested she bring them in for her medical record. FATOUMATA Moseley
[2021-09-25 16:21] VITALS: PULSE 80
[2021-09-25 21:31] VITALS: BP 153/68; PULSE 65; RESP 16; TEMP 37; O2SAT 96
[2021-09-25] MEDS: Ceftriaxone 1 GM/50 ML BAG IV (22:04)
[2021-09-25] MEDS: Atorvastatin Calcium 40 MG Tablet PO (22:04)
[2021-09-25] MEDS: ALPRAZolam 0.5 MG Tablet PO (22:08)
[2021-09-25 22:31] LABS: Bedside Glucose 267 mg/dL (74-106)
[2021-09-26] MEDS: 0.9% Normal Saline 1,000 ML 100 ML IV (02:02)
[2021-09-26 03:30] VITALS: BP 150/85; PULSE 64; RESP 16; TEMP 37; O2SAT 95
[2021-09-26] MEDS: Insulin Lispro 100 UNIT/ML INSULN.PEN SC ×2 (06:11→12:13)
[2021-09-26 06:26] LABS: Absolute Neutrophil Count 2.5 X10^3/uL (2.0-7.7); Basophil# 0.04 X10^3/uL; Basophil% 0.7 % (0-1); Eosinophil# 0.09 X10^3/uL; Eosinophils% 1.5 % (0-5); Hematocrit 39.7 % (37-47); Hemoglobin 13.5 g/dL (12.0-15.0); Lymphocyte % 49.1 % (19-41); Mean Corpuscular Volume 91.1 fL (81-99); Monocyte# 0.36 X10^3/uL; Monocyte% 6.1 % (0-10); NRBC Flagged by Analyzer 0 % (0-5); Neutrophil # 2.49 X10^3/uL (2.7-7.7); Neutrophil % 42.1 % (47-70); Platelet Count 145 K/mm3 (150-450); RBC Distribution Width SD 43.2 fl (35.1-43.9); Red Blood Count 4.36 M/mm3 (4.2-5.4); White Blood Count 5.9 K/mm3 (4.4-11.0)
[2021-09-26 06:45] LABS: Bedside Glucose 216 mg/dL (74-106)
[2021-09-26 06:54] LABS: Anion Gap 8 (5-15); BUN 10 mg/dL (7-18); BUN/Creat Ratio 16.4 RATIO (10-20); Calcium,Total 9.5 mg/dL (8.5-10.1); Chloride 108 mmol/L (98-107); Creatinine, Serum 0.61 mg/dL (0.55-1.02); EST Glomerular Filtration Rate 101 mL/min (>60); Est Glom Filt Rate - Afr Amer 122 mL/min (>60); Estimated Creatinine Clearance 39.39 ml/min; Glucose 215 mg/dL (74-106); Magnesium 1.8 mg/dL (1.6-2.6); Potassium 3.5 mmol/L (3.5-5.1); Sodium Level 141 mmol/L (136-145)
--- NOTE | 2021-09-26 07:29 | PN.HOSP_ITS ---
Subjective Subjective Patient seen back to baseline. Urine cultures growing gram-negative rods but no significant colony count. Patient will be assessed for possible discharge Objective Data Objective Data Vital Signs: Vital Signs Temp Pulse Resp BP Pulse Ox O2 Del Method 98.6 F 64 16 150/85 H 95 Room Air 09/26/21 03:30 09/26/21 03:30 09/26/21 03:30 09/26/21 03:30 09/26/21 03:30 09/26/21 03:30 Oxygen Delivery Method Room Air Weight: 93.5 kg Body Mass Index (BMI) 35.4 Intake & Output: Intake and Output for Last 24 Hours 09/24/21 09/25/21 09/26/21 23:59 23:59 23:59 Intake Total 380 / 380 2830 / 2830 1200 / 1200 Balance 380 / 380 2830 / 2830 1200 / 1200 Lab / Micro Data Result Diagrams: 09/26/21 04:53 09/26/21 04:53 Labs: Laboratory Results - last 24 hr 09/25/21 12:09: POC Glucose 281 H 09/25/21 22:02: POC Glucose 267 H 09/26/21 04:53: WBC 5.9, RBC 4.36, Hgb 13.5, Hct 39.7, MCV 91.1, MCH 31.0, MCHC 34.0 D, RDW Std Deviation 43.2, RDW Coeff of Viviane 13.0, Plt Count 145 L, MPV 10.0, Immature Gran % (Auto) 0.500, Neut % (Auto) 42.1 L, Lymph % (Auto) 49.1 H, [place] % (Auto) 6.1, Eos % (Auto) 1.5, Baso % (Auto) 0.7, Absolute Neuts (auto) 2.5, Absolute Lymphs (auto) 2.90, Nucleated RBC % 0 09/26/21 04:53: Sodium 141, Potassium 3.5, Chloride 108 H, Carbon Dioxide 25.0, Anion Gap 8, BUN 10, Creatinine 0.61, Estim Creat Clear Calc 39.39, Est GFR (MDRD) Af Amer 122, Est GFR (MDRD) Non-Af 101, BUN/Creatinine Ratio 16.4, Glucose 215 H, Calcium 9.5, Magnesium 1.8 09/26/21 06:02: POC Glucose 216 H Physical Exam Narrative GENERAL: cooperative HEENT: Atraumatic; EYES; Anicteric, Normal Conjunctiva NECK; supple, normal thyroid, RESPIRATORY: Diminished to auscultation CARDIOVASCULAR: Regular S1 S2, GI: soft, normoactive bowel sounds, : No Renal angle tenderness; EXTREMITIES: No edema, no clubbing, MUSCULOSKELETAL: no muscle wasting NEURO: Awake; no lateralizing signs. SKIN: No Rash PSYCH; Flat affect Assessment & Plan Assessment/Plan (1) Acute UTI: PLAN: Plan 80-year-old lady admitted with altered mental status found to have acute cystitis 1. Acute metabolic encephalopathy ? Thought to be secondary to UTI as well as medication induced. Patient urine tox was positive for benzos. Admitted to regular nursing floor for treatment of underlying etiology ? 09/26/2021 resolved 2. Acute cystitis secondary to gram-negative jose nonfermenting organism ? Patient apparently has history of recurrent UTIs. Started on Rocephin urine culture sent. Plan is to either continue with current antibiotic, adjust accordingly based on results of cultures -Patient was discharged home on cefdinir since her colonic count was not significant 3. Diabetes mellitus type II -patient's oral hypoglycemics held. Placed on Accu-Cheks a.c. and at bedtime and covered with sliding scale insulin added long-acting insulin in view of patient hyperglycemia 4. Hypertension - Blood pressure controlled, home medications continued with dose adjustment as needed 5. Dyslipidemia -Patient is on statin therapy, continued at home dose 6. Dehydration ? As evidenced by markedly elevated hemoglobin admission which has since normalized following IV fluid administration ? Subsequent monitoring with daily CBC and BMP is ordered 7. Hypercalcemia ? Also thought to be secondary to dehydration normalized with rehydration ? Subsequent monitoring with daily BMPs ordered 8. Paroxysmal A. fib ? Rate controlled on atenolol on systemic anticoagulation with Xarelto 9. DVT prophylaxis ? On Xarelto Charges/Coding Visit Charges OBSV E&M: 73453 Subsequent observation care L2
[2021-09-26 08:45] VITALS: BP 189/86; PULSE 70; RESP 18; TEMP 36.9; O2SAT 94
[2021-09-26] MEDS: Nystatin Powder 15gm Bottle 1 APPLIC TOPICAL (08:47)
[2021-09-26] MEDS: Loratadine 10 MG Tablet PO (08:47)
[2021-09-26] MEDS: Atenolol 50 MG Tablet PO (08:47)
[2021-09-26] MEDS: Menthol/Lanolin/Calamine/Znox 113 GM Tube 1 APPLIC TOPICAL (08:47)
--- NOTE | 2021-09-26 09:10 | CASEMGMT ---
Late entry for 09/25/2021 at 1140 HIRAM LILLY called pt dtr as pt not A&Ox3 to discuss PETERSON form with. HIRAM LILLY explained PETERSON form, patient dtr Dixie voiced understanding. Pt daughter gave verbal consent for signature on form and filed in chart. Pt provided with a copy of signed PETERSON form. Patient's daughter had no further questions or concerns at this time.
--- NOTE | 2021-09-26 09:26 | DS.PCM_ITS ---
Providers Date of Admission: 09/24/21 Date of Discharge: 09/26/21 Primary Care Physician: Dr. Luanne Aquino MD Reason For Visit: AMS Diagnosis Discharge Diagnosis (1) Acute UTI: Status: Acute Code(s): N39.0 - Urinary tract infection, site not specified Medications at Discharge Home Medications bumetanide 0.5 mg tablet 1 - 2 mg PO DAILY PRN Swelling 05/25/19 fluticasone propionate 50 mcg/actuation nasal spray,suspension 1 spray NASAL DAILY PRN Allergy Symptoms 05/25/19 metformin 500 mg tablet,extended release 24 hr 1,000 mg PO BID diabetes 05/25/19 atorvastatin 40 mg tablet 40 mg PO QHS cholesterol 12/11/19 loratadine 10 mg tablet 10 mg PO DAILY ALLERGIES 10/06/20 rivaroxaban 20 mg tablet (Xarelto) 20 mg PO DAILY #30 tabs 10/08/20 alprazolam 0.5 mg tablet 1 tab PO QHS sleep 09/24/21 atenolol 50 mg tablet 50 mg PO DAILY blood pressure 09/24/21 cefdinir 300 mg capsule 300 mg PO BID #10 caps 09/26/21 Hospital Course Summary of Care Provided Minutes Spent on Discharge: 32 Hospital Course: 80-year-old lady admitted with altered mental status found to have acute cystitis 1. Acute metabolic encephalopathy ? Thought to be secondary to UTI as well as medication induced. Patient urine tox was positive for benzos. Admitted to regular nursing floor for treatment of underlying etiology ? 09/26/2021 resolved 2. Acute cystitis secondary to gram-negative jose nonfermenting organism ? Patient apparently has history of recurrent UTIs. Started on Rocephin urine culture sent. Plan is to either continue with current antibiotic, adjust accordingly based on results of cultures -Patient was discharged home on cefdinir since her colonic count was not signi ficant 3. Diabetes mellitus type II -patient's oral hypoglycemics held. Placed on Accu-Cheks a.c. and at bedtime and covered with sliding scale insulin added long-acting insulin in view of patient hyperglycemia 4. Hypertension - Blood pressure controlled, home medications continued with dose adjustment as needed 5. Dyslipidemia -Patient is on statin therapy, continued at home dose 6. Dehydration ? As evidenced by markedly elevated hemoglobin admission which has since normalized following IV fluid administration ? Subsequent monitoring with daily CBC and BMP is ordered 7. Hypercalcemia ? Also thought to be secondary to dehydration normalized with rehydration ? Subsequent monitoring with daily BMPs ordered 8. Paroxysmal A. fib ? Rate controlled on atenolol on systemic anticoagulation with Xarelto 9. DVT prophylaxis ? On Xarelto Physical Exam Narrative GENERAL: cooperative HEENT: Atraumatic; EYES; Anicteric, Normal Conjunctiva NECK; supple, normal thyroid, RESPIRATORY: Diminished to auscultation CARDIOVASCULAR: Regular S1 S2, GI: soft, normoactive bowel sounds, : No Renal angle tenderness; EXTREMITIES: No edema, no clubbing, MUSCULOSKELETAL: no muscle wasting NEURO: Awake; no lateralizing signs. SKIN: No Rash PSYCH; Flat affect Weight / BMI Weight Weight: 93.5 kg Body Mass Index (BMI) 35.4 ABG / Lab / Microbiology Data Result Diagrams: 09/26/21 04:53 09/26/21 04:53 Laboratory: Laboratory Results - last 24 hr 09/25/21 12:09: POC Glucose 281 H 09/25/21 22:02: POC Glucose 267 H 09/26/21 04:53: WBC 5.9, RBC 4.36, Hgb 13.5, Hct 39.7, MCV 91.1, MCH 31.0, MCHC 34.0 D, RDW Std Deviation 43.2, RDW Coeff of Viviane 13.0, Plt Count 145 L, MPV 1 0.0, Immature Gran % (Auto) 0.500, Neut % (Auto) 42.1 L, Lymph % (Auto) 49.1 H, [place] % (Auto) 6.1, Eos % (Auto) 1.5, Baso % (Auto) 0.7, Absolute Neuts (auto) 2.5, Absolute Lymphs (auto) 2.90, Nucleated RBC % 0 09/26/21 04:53: Sodium 141, Potassium 3.5, Chloride 108 H, Carbon Dioxide 25.0, Anion Gap 8, BUN 10, Creatinine 0.61, Estim Creat Clear Calc 39.39, Est GFR (MDRD) Af Amer 122, Est GFR (MDRD) Non-Af 101, BUN/Creatinine Ratio 16.4, Glucose 215 H, Calcium 9.5, Magnesium 1.8 09/26/21 06:02: POC Glucose 216 H Microbiology: Microbiology 09/24/21 18:41 Urine, Clean Catch Urine 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 - 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 D/C Instructions Discharge Diet: No restrictions Discharge Activity: Return to Normal Activity Call your doctor if you observe: Fever of 101 or Higher, Shortness of breath, Fainting spells and Chest pain Meaningful Use Info Meaningful Use Diagnoses (Choose all that apply): None applicable Discharge Plan Admission Admit Date/Time: 09/24/21 20:02 Attending Provider: Margarito Tirado Primary Care Provider: Luanne Aquino Consulting Providers: Joann Ortega Instructions Patient Instructions: ED ALOC, ED CYSTITIS Female Adult Discharge Orders/Prescriptions Prescriptions: New cefdinir 300 mg capsule 300 mg PO BID Qty: 10 0RF Continued bumetanide 0.5 MG tablet 1 - 2 mg PO DAILY PRN (Reason: Swelling) metformin 500 MG tablet 1,000 mg PO BID fluticasone propionate 1 SPRAY spray,suspension 1 spray NASAL DAILY PRN (Reason: Allergy Symptoms) atorvastatin 40 MG tablet 40 mg PO QHS loratadine 10 mg tablet 10 mg PO DAILY Xarelto 20 mg tablet 20 mg PO DAILY Qty: 30 0RF Rx Instructions: must administer with evening meal atenolol 50 mg tablet 50 mg PO DAILY alprazolam 0.5 mg tablet 1 tab PO QHS Label Comments: TAKE 1 TABLET BY MOUTH ONCE DAILY NEEDED FOR UP TO 60 DAYS. Discontinued oxycodone-acetaminophen 7.5-325 mg tablet 1 tab PO TID Label Comments: PLEASE SEE ATTACHED FOR DETAILED DIRECTIONS Referrals / Follow Up: Luanne Aquino MD [Primary Care Provider] - In 1 Week Disposition Disposition (needs filled in before D/C Order can be placed): Home, Self Care Charges/Coding Visit Charges OBSV E&M: 73619 Observation care discharge
--- NOTE | 2021-09-26 09:50 | CASEMGMT ---
RN CM in to pt room, pt sitting up in chair. Pt is A&Ox3. Discussed dc planning with patient. Pt wishes to go home. Discussed having [facility] to see pt for SN for UTI teaching/prevention as well as therapy for strengthening. Pt denies need for this. She states her dtr will be coming to see her daily with the goal of living with her. TC to pt dtr Dixie. She confirms that she will be visiting pt if not daily, every other day. She states her brother will be coming tomorrow for a family meeting so see about her and patient living in a condo or apt together. She states pt has a medic alert and she speaks with patient on the phone multiple times per day. No further needs at this time.
--- NOTE | 2021-09-26 11:58 | PHA.DC.MC ---
Pharmacy Service has performed discharge medication reconciliation and counseling for this patient. 1. CEFDINIR 300MG PO Q12 X 5 DAYS The patient's discharge medication list was reviewed for discrepancies and discrepancies were resolved. Home Medications bumetanide 0.5 mg tablet 1 - 2 mg PO DAILY PRN Swelling 05/25/19 fluticasone propionate 50 mcg/actuation nasal spray,suspension 1 spray NASAL DAILY PRN Allergy Symptoms 05/25/19 metformin 500 mg tablet,extended release 24 hr 1,000 mg PO BID diabetes 05/25/19 atorvastatin 40 mg tablet 40 mg PO QHS cholesterol 12/11/19 loratadine 10 mg tablet 10 mg PO DAILY ALLERGIES 10/06/20 rivaroxaban 20 mg tablet (Xarelto) 20 mg PO DAILY #30 tabs 10/08/20 alprazolam 0.5 mg tablet 1 tab PO QHS sleep 09/24/21 atenolol 50 mg tablet 50 mg PO DAILY blood pressure 09/24/21 cefdinir 300 mg capsule 300 mg PO BID #10 caps 09/26/21 The patient was counseled on the following discharge medications and changes in medications for homegoing were reviewed. The Reason for Use, instructions for use, and potential side effects were reviewed for all new medications. The patient's questions regarding all of their medications were answered. The patient was able to verbally demonstrate an understanding of their discharge medications.
[2021-09-26 12:40] LABS: Bedside Glucose 244 mg/dL (74-106)
[2021-09-26 14:12] VITALS: BP 156/89; RESP 17
== END 2021-09-26 14:17 | disposition home or self-care (01) ==
LOC: ED 20:27 → MS3 20:30
PROVIDERS: Admitting Provider Internal Medicine; Emergency Provider Student in an Organized Health Care Education/Training Program; PCP Internal Medicine; Visit Provider Internal Medicine
DX: N30.00 Acute cystitis without hematuria (principal); E11.65 Type 2 diabetes mellitus with hyperglycemia; I48.0 Paroxysmal atrial fibrillation; I10 Essential (primary) hypertension; G93.41 Metabolic encephalopathy; E83.52 Hypercalcemia; E86.0 Dehydration; Z79.01 Long term (current) use of anticoagulants; E78.5 Hyperlipidemia, unspecified; Z79.899 Other long term (current) drug therapy; Z79.84 Long term (current) use of oral hypoglycemic drugs; Z86.718 Personal history of other venous thrombosis and embolism; M99.03 Segmental and somatic dysfunction of lumbar region; M99.04 Segmental and somatic dysfunction of sacral region; M99.05 Segmental and somatic dysfunction of pelvic region; M99.02 Segmental and somatic dysfunction of thoracic region; E66.9 Obesity, unspecified; Z68.37 Body mass index [BMI] 37.0-37.9, adult
CPT/HCPCS: 36415; 70450; 71045; 80048; 80053; 80307; 81001; 82077; 82140; 82962; 83735; 84100; 84484; 85025; 87077; 87086; 87088; 87186; 93005; 96361; 96365; 96366; 97162; 99218; 99285; J7030; A4216; G0378

== ENCOUNTER 2021-10-13 13:47 | Inpatient (IN) | payer MEDICARE, SELFPAY ==
[2021-10-13] VITALS (8 sets, daily range): BP systolic 147–164; BP diastolic 63–102; PULSE 64–73; RESP 18–22; TEMP 35.9–36.2; O2SAT 97–100; BMI 37.6; BMI 37.7
--- NOTE | 2021-10-13 14:05 | EKG12_ITS ---
Test Reason : Blood Pressure : / mmHG Vent. Rate : 075 BPM Atrial Rate : 075 BPM P-R Int : 180 ms QRS Dur : 096 ms QT Int : 382 ms P-R-T Axes : 064 -01 216 degrees QTc Int : 426 ms Normal sinus rhythm Left ventricular hypertrophy with repolarization abnormality ( [place] product ) Abnormal ECG Confirmed by LEIDY KEE, JENNIFER ([id number]), newspaper editor AIDEN ELLIS ([id number]) on 10/16/2021 9:39:45 AM Referred By: SAFIA Confirmed By:MOHIT FORBES MD
--- NOTE | 2021-10-13 14:09 | RAD_ITS ---
STUDY: X-RAY - LUMBAR SPINE REASON FOR EXAM: Female, 80 years old. Fall TECHNIQUE: 2 view(s) of the lumbar spine were obtained. COMPARISON: None FINDINGS: There is straightening of the normal lumbar lordosis. There is no substantial scoliosis. There is a normal alignment of the vertebrae. There is multilevel endplate spondylosis of the lumbar vertebrae. There is multi-level degenerative disc disease with multi-level disc space narrowing. Mild loss of height of the superior endplate of the L4 vertebrae. Facet joint osteoarthritis. There is atherosclerotic calcification of the abdominal aorta without a demonstrated aneurysm. RAD/Lumbar Spine 2 or 3 Views IMPRESSION: Degenerative changes of the spine, as detailed above. Mild degree of loss of height of the superior endplate of the L4 vertebrae. Electronically Signed: Uvaldo Biswas MD at 14:50 EDT ,
--- NOTE | 2021-10-13 14:09 | CT_ITS ---
STUDY: CT BRAIN WITHOUT CONTRAST REASON FOR EXAM: Female, 80 years old. Altered mental status. Unresponsive. RADIATION DOSAGE (If Supplied By Facility): CTDIvol = ( 44.99 ) mGy, DLP = ( 1272.05 ) mGycm TECHNIQUE: Transaxial CT imaging of the brain was performed without administration of intravenous contrast material. Individualized dose optimization techniques were used for this CT. COMPARISON: Comparison is made with prior study dated 09/24/2021. FINDINGS: Normal soft tissue structures. Normal calvarium. There is mild cerebral atrophy with widening of the extra-axial spaces and ventricular dilatation. There are areas of decreased attenuation within the white matter tracts of the supratentorial brain, consistent with microvascular disease changes. Normal basal ganglia and thalami. Normal brainstem. Normal cerebellum. There is no intracranial hemorrhage. There are no findings of an acute ischemic infarction. Atherosclerotic calcification of the cavernous portions of the internal carotid arteries bilaterally. Mucosal thickening of the sphenoid sinuses bilaterally. CT/Brain/Head without Contrast IMPRESSION: Chronic involutional changes of the brain. Electronically Signed: Uvaldo Biswas MD at 14:47 EDT ,
--- NOTE | 2021-10-13 14:09 | CT_ITS ---
STUDY: CT CERVICAL SPINE WITHOUT CONTRAST REASON FOR EXAM: Female, 80 years old. Patient found unresponsive. RADIATION DOSAGE (If Supplied By Facility): CTDIvol = ( 28.53 ) mGy, DLP = ( 1272.05 ) mGycm TECHNIQUE: High resolution transaxial imaging was performed without contrast material. Sagittal and coronal images were reconstructed. Individualized dose optimization techniques were used for this CT. COMPARISON: None FINDINGS: Normal craniovertebral junction. Normal anterior atlantoaxial articulation. Normal odontoid process. Normal cervical lordosis. Normal vertebral bodies and posterior osseous elements. C2-3: Normal endplates. Normal disc height and morphology. Normal central canal and intervertebral neuroforamina. C3-4: Normal endplates. Normal disc height and morphology. Normal central canal and intervertebral neuroforamina. C4-5: Normal endplates. Normal disc height and morphology. Normal central canal and intervertebral neuroforamina. C5-6: Normal endplates. Normal disc height and morphology. Normal central canal and intervertebral neuroforamina. C6-7: Normal endplates. Normal disc height and morphology. Normal central canal and intervertebral neuroforamina. C7-T1: Normal endplates. Normal disc height and morphology. Normal central canal and intervertebral neuroforamina. Partial opacification of the left mastoid air cells. Mucosal thickening of the ethmoid sinuses. Normal visualized soft tissue structures. CT/Spine Cervical without Contras IMPRESSION: Partial opacification of the right mastoid air cells. Electronically Signed: Uvaldo Biswas MD at 14:48 EDT ,
--- NOTE | 2021-10-13 14:13 | EX.ED.DYSGE1 ---
HPI <SINDI Mendoza - Last Filed: 10/13/21 18:35> History of Present Illness Chief Complaint: Mental Status Change Narrative Narrative: 80-year-old female with history of anxiety, type 2 diabetes, degenerative's disease, paroxysmal atrial fibrillation presents to the emergency department by EMS for being unresponsive. Per the squad, daughter tried to get a hold of this patient for 1.5 days, can no longer get a hold of her so they called the squad. Patient was found naked in the bathroom. Patient does not follow commands, patient does not answer questions. Patient has no obvious signs of trauma. [facility] <SINDI Menodza - Last Filed: 10/13/21 18:35> [facility] Medical History Adult failure to thrive Anxiety DDD (degenerative disc disease) DVT (deep venous thrombosis) Essential (primary) hypertension History of DVT of lower extremity (05/2017) Hyperlipidemia Obesity Osteoarthritis Paroxysmal atrial fibrillation Segmental and somatic dysfunction of lumbar region Segmental and somatic dysfunction of pelvic region Segmental and somatic dysfunction of sacral region Segmental and somatic dysfunction of thoracic region Small bowel obstruction Type 2 diabetes mellitus whipple surgery Medical History unable to obtain Home Medications bumetanide 0.5 mg tablet 1 - 2 mg PO DAILY PRN Swelling 05/25/19 [History Last Taken Unknown] fluticasone propionate 50 mcg/actuation nasal spray,suspension 1 spray NASAL DAILY PRN Allergy Symptoms 05/25/19 [History Last Taken Unknown] metformin 500 mg tablet,extended release 24 hr 1,000 mg PO BID diabetes 05/25/19 [History Last Taken 10/06/20] atorvastatin 40 mg tablet 40 mg PO QHS cholesterol 12/11/19 [History Last Taken 10/06/20] loratadine 10 mg tablet 10 mg PO DAILY ALLERGIES 10/06/20 [History Last Taken 10/06/20] rivaroxaban 20 mg tablet (Xarelto) 20 mg PO DAILY #30 tabs 10/08/20 [Rx Last Taken Unknown] alprazolam 0.5 mg tablet 1 tab PO QHS sleep 09/24/21 [History Last Taken Unknown] atenolol 50 mg tablet 50 mg PO DAILY blood pressure 09/24/21 [History Last Taken Unknown] cefdinir 300 mg capsule 300 mg PO BID #10 caps 09/26/21 [Rx Last Taken Unknown] Allergy/AdvReac Type Severity Reaction Status Date / Time duloxetine [From Cymbalta] Allergy Other Verified 09/24/21 16:05 ramelteon [From Rozerem] Allergy Other Verified 09/24/21 16:05 bupropion AdvReac Other Verified 09/24/21 16:05 bupropion HCl AdvReac Other Verified 09/24/21 16:05 [From Wellbutrin] dexfenfluramine HCl AdvReac Unknown Verified 09/24/21 16:05 [From Redux] hydrochlorothiazide AdvReac Other Verified 09/24/21 16:05 ketorolac tromethamine AdvReac Itching Verified 09/24/21 16:05 [From Toradol] oxaprozin [From Daypro] AdvReac Other Verified 09/24/21 16:05 Family History Mother Myocardial infarction Father Asthma Family History unable to obtain Surgical History H/O medial meniscus repair of right knee History of bilateral carpal tunnel release History of bladder suspension procedure History of bladder suspension procedure History of bowel resection History of hysterectomy History of hysterectomy Hx of cholecystectomy S/P cholecystectomy sigmoid colon removed vaginal wall repaired Surgical History unable to obtain Social History Smoking Status: Never smoker second hand exposure: No alcohol intake: current alcohol intake frequency: holidays/special occasions only substance use type: does not use caffeine: Yes what type of physical activity do you participate in: none frequency: does not exercise seatbelt use: always ROS <SINDI Mendoza - Last Filed: 10/13/21 18:35> ROS ED ROS Narrative Due to the severity of the patient's illness unable to provide a review of symptoms. EXAM <SINDI Mendoza - Last Filed: 10/13/21 18:35> Physical Exam Narrative Exam Narrative: Vital signs reviewed. GCS 10, patient withdraws from pain, opens her eyes to verbal stimuli. HEET: Head normocephalic atraumatic, TMs clear bilaterally. Posterior pharynx is clear, dry mucous membranes. Nares clear bilaterally. Pupils react with light, negative for any hematoma, cephalhematoma. Neck: Supple with no lymphadenopathy or tenderness. No signs of meningismus, negative jolt sign. Cardiac: Regular rate and rhythm no murmurs gallops or rubs, equal peripheral pulses bilaterally. Respiratory: Lungs clear to auscultation bilaterally. No chest tenderness. Abdomen: Soft, nontender, nondistended. No abdominal bruit or pulsatile masses. No hepatosplenomegaly Extremities: No peripheral edema, no signs of gross trauma or deformity. Active full range of motion of all extremities. Range of motion of extremities were done passively Neuro: Cranial nerves II through XII intact, no focal neurological deficits. Patient has no obvious weakness to either side extremities. Patient not following commands. Skin: Clean dry and intact with no rash, purpura, petechiae, vesicles or pustules. Backs/flank: No CVA tenderness, no midline spinal tenderness, no deformity. Patient does have some bruising just above the buttocks, there is no bleeding from the rectum. Psych: Normal mood and affect. No SI, HI or acute psychosis. Const Vital Signs: 10/13/21 13:49 10/13/21 14:15 10/13/21 14:15 Temperature 96.7 F L Temperature Source Axillary Pulse Rate 72 73 Respiratory Rate 20 H 18 Blood Pressure 161/76 H 164/70 H Blood Pressure Mean 104 101 Pulse Ox 97 97 Oxygen Delivery Method Room Air Room Air Room Air 10/13/21 14:15 10/13/21 17:30 Temperature Temperature Source Rectal Pulse Rate 67 Respiratory Rate 22 H Blood Pressure 155/65 H Blood Pressure Mean 95 Pulse Ox 98 Oxygen Delivery Method Room Air <Dr. Christiano Buitrago, DO - Last Filed: 10/14/21 21:09> Physical Exam Const Vital Signs: 10/13/21 13:49 10/13/21 14:15 10/13/21 14:15 Temperature 96.7 F L Temperature Source Axillary Pulse Rate 72 73 Respiratory Rate 20 H 18 Blood Pressure 161/76 H 164/70 H Blood Pressure Mean 104 101 Pulse Ox 97 97 Oxygen Delivery Method Room Air Room Air Room Air 10/13/21 14:15 10/13/21 17:30 Temperature Temperature Source Rectal Pulse Rate 67 Respiratory Rate 22 H Blood Pressure 155/65 H Blood Pressure Mean 95 Pulse Ox 98 Oxygen Delivery Method Room Air [facility] <Gilberto VyasSINDI - Last Filed: 10/13/21 18:35> [facility] Lab Data Labs: Laboratory Results - last 24 hr 10/13/21 10/13/21 10/13/21 15:20 15:20 15:20 WBC 15.7 H RBC 5.30 Hgb 15.7 H Hct 45.8 MCV 86.4 MCH 29.6 MCHC 34.3 RDW Std Deviation 41.6 RDW Coeff of Viviane 13.2 Plt Count 183 MPV 10.6 Immature Gran % (Auto) 0.500 Neut % (Auto) 82.7 H Lymph % (Auto) 11.0 L [place] % (Auto) 5.4 Eos % (Auto) 0.2 Baso % (Auto) 0.2 Absolute Neuts (auto) 13.0 H Absolute Lymphs (auto) 1.73 Nucleated RBC % 0 PT 42.3 H INR 4.5 H* Sodium 139 Potassium 3.3 L Chloride 106 Carbon Dioxide 22.0 Anion Gap 11 BUN 16 Creatinine 0.83 Estim Creat Clear Calc 47.46 Est GFR (MDRD) Af Amer 85 Est GFR (MDRD) Non-Af 70 BUN/Creatinine Ratio 19.3 Glucose 248 H Lactic Acid Calcium 10.9 H Total Bilirubin 1.00 AST 15 ALT 25 Alkaline Phosphatase 84 Total Creatine Kinase 96 Total Protein 7.3 Albumin 3.7 Globulin 3.6 Albumin/Globulin Ratio 1.0 Urine Color Urine Clarity Urine pH Ur Specific [place] Urine Protein Urine Glucose (UA) Urine Ketones Urine Occult Blood Urine Nitrite Urine Bilirubin Urine Urobilinogen Ur Leukocyte Esterase Urine RBC Urine WBC Ur Squamous Epith Cells Urine Bacteria Urine Mucus Urine Yeast Salicylates Urine Opiates Screen Urine Methadone Screen Acetaminophen Ur Barbiturates Screen Ur Phencyclidine Scrn Ur Amphetamines Screen MDMA (Ecstasy) Screen U Benzodiazepines Scrn Urine Cocaine Screen U Cannabinoids Screen Ur Drug Screen Comment Ethyl Alcohol 10/13/21 10/13/21 10/13/21 15:20 15:20 17:30 WBC RBC Hgb Hct MCV MCH MCHC RDW Std Deviation RDW Coeff of Viviane Plt Count MPV Immature Gran % (Auto) Neut % (Auto) Lymph % (Auto) [place] % (Auto) Eos % (Auto) Baso % (Auto) Absolute Neuts (auto) Absolute Lymphs (auto) Nucleated RBC % PT INR Sodium Potassium Chloride Carbon Dioxide Anion Gap BUN Creatinine Estim Creat Clear Calc Est GFR (MDRD) Af Amer Est GFR (MDRD) Non-Af BUN/Creatinine Ratio Glucose Lactic Acid 3.6 H* Calcium Total Bilirubin AST ALT Alkaline Phosphatase Total Creatine Kinase Total Protein Albumin Globulin Albumin/Globulin Ratio Urine Color Urine Clarity Urine pH Ur Specific [place] Urine Protein Urine Glucose (UA) Urine Ketones Urine Occult Blood Urine Nitrite Urine Bilirubin Urine Urobilinogen Ur Leukocyte Esterase Urine RBC Urine WBC Ur Squamous Epith Cells Urine Bacteria Urine Mucus Urine Yeast Salicylates < 1.7 L Urine Opiates Screen NEGATIVE Urine Methadone Screen NEGATIVE Acetaminophen < 2.0 L Ur Barbiturates Screen NEGATIVE Ur Phencyclidine Scrn NEGATIVE Ur Amphetamines Screen NEGATIVE MDMA (Ecstasy) Screen NEGATIVE U Benzodiazepines Scrn POSITIVE H Urine Cocaine Screen NEGATIVE U Cannabinoids Screen NEGATIVE Ur Drug Screen Comment Ethyl Alcohol 5.0 10/13/21 17:30 WBC RBC Hgb Hct MCV MCH MCHC RDW Std Deviation RDW Coeff of Viviane Plt Count MPV Immature Gran % (Auto) Neut % (Auto) Lymph % (Auto) [place] % (Auto) Eos % (Auto) Baso % (Auto) Absolute Neuts (auto) Absolute Lymphs (auto) Nucleated RBC % PT INR Sodium Potassium Chloride Carbon Dioxide Anion Gap BUN Creatinine Estim Creat Clear Calc Est GFR (MDRD) Af Amer Est GFR (MDRD) Non-Af BUN/Creatinine Ratio Glucose Lactic Acid Calcium Total Bilirubin AST ALT Alkaline Phosphatase Total Creatine Kinase Total Protein Albumin Globulin Albumin/Globulin Ratio Urine Color Yellow Urine Clarity Clear Urine pH 5.0 Ur Specific [place] 1.020 Urine Protein 15 H Urine Glucose (UA) 1000 H Urine Ketones 5 H Urine Occult Blood Negative Urine Nitrite Negative Urine Bilirubin Negative Urine Urobilinogen Normal Ur Leukocyte Esterase Negative Urine RBC 0 SEEN Urine WBC 0-5 SEEN Ur Squamous Epith Cells 0-5 SEEN Urine Bacteria 0 SEEN Urine Mucus 0 SEEN Urine Yeast 1+ Salicylates Urine Opiates Screen Urine Methadone Screen Acetaminophen Ur Barbiturates Screen Ur Phencyclidine Scrn Ur Amphetamines Screen MDMA (Ecstasy) Screen U Benzodiazepines Scrn Urine Cocaine Screen U Cannabinoids Screen Ur Drug Screen Comment Ethyl Alcohol ABG Data ABG results: ABG 10/13/21 15:24 Specimen Type ART Sample Site L Brach pH 7.39 Bicarbonate Actual 22.3 Total CO2 23 Base Excess -3 L O2 Saturation 99 ABG pCO2 36.6 ABG pO2 129 H Raghu Test Positive O2 Delivery Device Room Air Radiography Diagnostic Testing: Clinical Impression(s) from Imaging Studies Brain CT 10/13/21 14:09 IMPRESSION: Chronic involutional changes of the brain. Electronically Signed: Uvaldo Biswas MD at 14:47 EDT Reading Location ID and State: [id number] / [employer] [facility] , Service support , Cervical Spine CT 10/13/21 14:09 IMPRESSION: Partial opacification of the right mastoid air cells. Electronically Signed: Uvaldo Biswas MD at 14:48 EDT Reading Location ID and State: [id number] / [employer] [facility] [employer] [facility] , Service support , Lumbar Spine X-Ray 10/13/21 14:09 IMPRESSION: Degenerative changes of the spine, as detailed above. Mild degree of loss of height of the superior endplate of the L4 vertebrae. Electronically Signed: Uvaldo Biswas MD at 14:50 EDT Reading Location ID and State: [id number] / [employer] [facility] [employer] [facility] , Service support , Chest X-Ray 10/13/21 14:30 IMPRESSION: No acute abnormality is seen. Electronically Signed: Uvaldo Biswas MD at 14:49 EDT Reading Location ID and State: [id number] / [employer] [facility] [employer] [facility] , Service support , EKG Normal sinus rhythm: Interpretation: Sinus Rhythm Comments: Normal sinus rhythm, rate 75 bpm, NJ 180 ms, QRS duration 86 ms, no acute ST elevation, no acute infarct noted. Treatment and Re-Evaluation Narrative: Patient arrives lethargic, patient has GCS of 10 on arrival. Patient received a septic work-up, patient had no obvious signs of trauma. Patient was not answering phone calls from her family, so they called the ambulance who brought her in. Patient did receive a full septic work-up, however patient was a difficult patient to obtain IV access.Patient did receive a chest x-ray inter by ER physician which was negative. Patient's lumbar sacral spine x-ray showed mild degree of loss of height of the superior endplate of the L for vertebral. Patient's CBC shows a leukocytosis with a white blood count of 15.7, patient's PT/INR was elevated with a pro time of 42.3 and a INR of 4.5. This is greatly elevated since July 2018. Patient's chemistries showed elevated blood glucose at 248 with a lactic acid of 3.6, patient's CK was unremarkable. Patient did become more arousable once family was there, patient continued to say that she wanted to . Patient family states that they saw multiple pill bottles, note saying that she wants to , that this could be in a attempt of suicide. Patient urine tox ring was positive for benzodiazepines, this is consistent with overdosing on 30 Xanax. I spoke with the patient family, the patient received 30 0.5 mg Xanax on October 11, 2021. These were all empty, empty pill bottle on the floor the bathroom. I did contact poison control, they told me to look for any cardiac abnormalities, as well as to repeat lactic acid. Half-life of this Xanax is 0.5 to 16 hours, may be more secondary to the patient's age. Patient respiratory status is unremarkable, she is maintaining her airway. Patient's vital signs are stable. Patient will need to be admitted to the hospital for medical clearance, benzodiazepine overdose, and will need to be transferred once clinically stable. <Dr. Christiano Buitrago, DO - Last Filed: 10/14/21 21:09> [facility] Narrative Medical decision making narrative: This patient was seen with a PA/HEAD OF TRANSPORT LOGISTICS Individually assessed they patient including history and physical. I have reviewed everything on the chart that is available and agree with the documentation provided by the PA/HEAD OF TRANSPORT LOGISTICS including discussion about the assessment, treatment plan, discussion, and return precautions. Patient presents with altered mental status and delirium. No obvious signs of trauma were noted on her initial examination. She was able to tell me initially that nothing hurt and she did not feel ill. Apparently the patient was not answering her phone since yesterday and her daughter had EMS come to her house where they found her on the floor. Due to patient's altered mental status and concern for history of UTIs I did obtain a sepsis work-up. Ultimately patient has a leukocytosis of 15 point with a slightly elevated INR at 4.5. She is on Coumadin she is on Xarelto. Patient was found to have a lactic acidosis as well of 3.6. Renal function, electrolytes unremarkable. LFTs normal. Since patient was on the ground for unknown duration time obtain a CPK which is unremarkable salicylates, acetaminophen, EtOH are normal. Urine drug screen positive for benzodiazepines however she has been prescribed these. After arrival of the patient's daughter and son they stated there was a lot of medicine bottles on the counter but EMS did not pick these up. She went home to find them. Patient previously was on alprazolam and on Donora. There was some concerns expressed previously about polypharmacy. The daughter initially stated that she did not have those medications anymore. While was evaluating the patient and she told her son that she wanted to and he politely stated no adult mom and later backed out. After this patient's daughter showed up with the picture of the medicine bottles and apparently she had taken Xanax. She was prescribed these on the at 25 mg doses. I suspect that she could have taken more than 30. The daughter stated again that she initially did not have these anymore and then she stated when she found them that she had had them hidden in she was not sure how she found them. She also showed me a picture of some metformin and if the patient had taken these this would explain maybe her lactic acidosis patient's daughter also found a suicide note stating that the patient was tired of all the fighting and that she wanted to be mixed together with her and not buried which I am presuming means as she is. She still confused here in the ER. Patient will need to be admitted due to the overdose and the delirium. Her urinalysis was negative. When she is medically cleared she will likely need [facility] psych. Her son expressed that he would like her to be transition to dual dementia care unit. She is admitted in stable condition. Impression: 1. Suicide attempt 2. Benzodiazepine overdose 3. Delirium 4. Leukocytosis 5. Lactic acidosis 6. Supratherapeutic INR Lab Data Attestation: I reviewed the patient's lab results. Labs: Laboratory Results - last 24 hr 10/13/21 10/13/21 10/13/21 15:20 15:20 15:20 WBC 15.7 H RBC 5.30 Hgb 15.7 H Hct 45.8 MCV 86.4 MCH 29.6 MCHC 34.3 RDW Std Deviation 41.6 RDW Coeff of Viviane 13.2 Plt Count 183 MPV 10.6 Immature Gran % (Auto) 0.500 Neut % (Auto) 82.7 H Lymph % (Auto) 11.0 L [place] % (Auto) 5.4 Eos % (Auto) 0.2 Baso % (Auto) 0.2 Absolute Neuts (auto) 13.0 H Absolute Lymphs (auto) 1.73 Nucleated RBC % 0 PT 42.3 H INR 4.5 H* Sodium 139 Potassium 3.3 L Chloride 106 Carbon Dioxide 22.0 Anion Gap 11 BUN 16 Creatinine 0.83 Estim Creat Clear Calc 47.46 Est GFR (MDRD) Af Amer 85 Est GFR (MDRD) Non-Af 70 BUN/Creatinine Ratio 19.3 Glucose 248 H Lactic Acid Calcium 10.9 H Total Bilirubin 1.00 AST 15 ALT 25 Alkaline Phosphatase 84 Total Creatine Kinase 96 Total Protein 7.3 Albumin 3.7 Globulin 3.6 Albumin/Globulin Ratio 1.0 Urine Color Urine Clarity Urine pH Ur Specific [place] Urine Protein Urine Glucose (UA) Urine Ketones Urine Occult Blood Urine Nitrite Urine Bilirubin Urine Urobilinogen Ur Leukocyte Esterase Urine RBC Urine WBC Ur Squamous Epith Cells Urine Bacteria Urine Mucus Urine Yeast Salicylates Urine Opiates Screen Urine Methadone Screen Acetaminophen Ur Barbiturates Screen Ur Phencyclidine Scrn Ur Amphetamines Screen MDMA (Ecstasy) Screen U Benzodiazepines Scrn Urine Cocaine Screen U Cannabinoids Screen Ur Drug Screen Comment Ethyl Alcohol 10/13/21 10/13/21 10/13/21 15:20 15:20 17:30 WBC RBC Hgb Hct MCV MCH MCHC RDW Std Deviation RDW Coeff of Viviane Plt Count MPV Immature Gran % (Auto) Neut % (Auto) Lymph % (Auto) [place] % (Auto) Eos % (Auto) Baso % (Auto) Absolute Neuts (auto) Absolute Lymphs (auto) Nucleated RBC % PT INR Sodium Potassium Chloride Carbon Dioxide Anion Gap BUN Creatinine Estim Creat Clear Calc Est GFR (MDRD) Af Amer Est GFR (MDRD) Non-Af BUN/Creatinine Ratio Glucose Lactic Acid 3.6 H* Calcium Total Bilirubin AST ALT Alkaline Phosphatase Total Creatine Kinase Total Protein Albumin Globulin Albumin/Globulin Ratio Urine Color Urine Clarity Urine pH Ur Specific [place] Urine Protein Urine Glucose (UA) Urine Ketones Urine Occult Blood Urine Nitrite Urine Bilirubin Urine Urobilinogen Ur Leukocyte Esterase Urine RBC Urine WBC Ur Squamous Epith Cells Urine Bacteria Urine Mucus Urine Yeast Salicylates < 1.7 L Urine Opiates Screen NEGATIVE Urine Methadone Screen NEGATIVE Acetaminophen < 2.0 L Ur Barbiturates Screen NEGATIVE Ur Phencyclidine Scrn NEGATIVE Ur Amphetamines Screen NEGATIVE MDMA (Ecstasy) Screen NEGATIVE U Benzodiazepines Scrn POSITIVE H Urine Cocaine Screen NEGATIVE U Cannabinoids Screen NEGATIVE Ur Drug Screen Comment Ethyl Alcohol 5.0 10/13/21 17:30 WBC RBC Hgb Hct MCV MCH MCHC RDW Std Deviation RDW Coeff of Viviane Plt Count MPV Immature Gran % (Auto) Neut % (Auto) Lymph % (Auto) [place] % (Auto) Eos % (Auto) Baso % (Auto) Absolute Neuts (auto) Absolute Lymphs (auto) Nucleated RBC % PT INR Sodium Potassium Chloride Carbon Dioxide Anion Gap BUN Creatinine Estim Creat Clear Calc Est GFR (MDRD) Af Amer Est GFR (MDRD) Non-Af BUN/Creatinine Ratio Glucose Lactic Acid Calcium Total Bilirubin AST ALT Alkaline Phosphatase Total Creatine Kinase Total Protein Albumin Globulin Albumin/Globulin Ratio Urine Color Yellow Urine Clarity Clear Urine pH 5.0 Ur Specific [place] 1.020 Urine Protein 15 H Urine Glucose (UA) 1000 H Urine Ketones 5 H Urine Occult Blood Negative Urine Nitrite Negative Urine Bilirubin Negative Urine Urobilinogen Normal Ur Leukocyte Esterase Negative Urine RBC 0 SEEN Urine WBC 0-5 SEEN Ur Squamous Epith Cells 0-5 SEEN Urine Bacteria 0 SEEN Urine Mucus 0 SEEN Urine Yeast 1+ Salicylates Urine Opiates Screen Urine Methadone Screen Acetaminophen Ur Barbiturates Screen Ur Phencyclidine Scrn Ur Amphetamines Screen MDMA (Ecstasy) Screen U Benzodiazepines Scrn Urine Cocaine Screen U Cannabinoids Screen Ur Drug Screen Comment Ethyl Alcohol ABG Data ABG results: ABG 10/13/21 15:24 Specimen Type ART Sample Site L Brach pH 7.39 Bicarbonate Actual 22.3 Total CO2 23 Base Excess -3 L O2 Saturation 99 ABG pCO2 36.6 ABG pO2 129 H Raghu Test Positive O2 Delivery Device Room Air Radiography Diagnostic Testing: Clinical Impression(s) from Imaging Studies Brain CT 10/13/21 14:09 IMPRESSION: Chronic involutional changes of the brain. Electronically Signed: Uvaldo Biswas MD at 14:47 EDT , Cervical Spine CT 10/13/21 14:09 IMPRESSION: Partial opacification of the right mastoid air cells. Electronically Signed: Uvaldo Biswas MD at 14:48 EDT , Lumbar Spine X-Ray 10/13/21 14:09 IMPRESSION: Degenerative changes of the spine, as detailed above. Mild degree of loss of height of the superior endplate of the L4 vertebrae. Electronically Signed: Uvaldo Biswas MD at 14:50 EDT , Chest X-Ray 10/13/21 14:30 IMPRESSION: No acute abnormality is seen. Electronically Signed: Uvaldo Biswas MD at 14:49 EDT , Discharge Plan Dx/Rx/DC Orders Clinical Impression: Suicide attempt, Benzodiazepine overdose, Acidosis, lactic, History of hypercoagulable state, Acute alteration in mental status Disposition Disposition: Acute Care Hospital [facility] Discharge Date/Time: 10/13/21 20:36
--- NOTE | 2021-10-13 14:30 | RAD_ITS ---
STUDY: X-RAY CHEST REASON FOR EXAM: Female, 80 years old. Shortness of breath TECHNIQUE: Single AP portable view of the chest. COMPARISON: Comparison is made with prior study dated 09/24/2021. FINDINGS: EKG electrodes are seen. The lungs are clear and expanded. There is no demonstrated pleural abnormality. Normal size heart. Normal mediastinum and deondre. Normal visualized pulmonary arteries. There is atherosclerotic tortuosity of the aortic arch and descending thoracic aorta. Normal visualized thoracic spine. Normal visualized ribs, clavicles, and shoulders. There is no demonstrated abnormality of the visualized soft tissue structures of the upper abdomen. RAD/Chest 1 View (Portable) IMPRESSION: No acute abnormality is seen. Electronically Signed: Uvaldo Biswas MD at 14:49 EDT ,
[2021-10-13 15:31] LABS: Allen Test Positive; Base Excess -3 mmol/L (-2 to +2); Bicarbonate 22.3 mmol/L (22-26); Blood Gas Specimen Type ART; O2 Delivery Device Room Air; PO2 129 mmHG (75-100); SITE L Brach; SO2 99 % (95-99); Total Carbon Dioxide 23 mmol/L; pCO2 36.6 mmHg (35-45); pH 7.39 (7.35-7.45)
[2021-10-13 15:33] LABS: Absolute Lymphocyte Count 1.73 X10^3/uL (0.83-4.51); Basophil# 0.03 X10^3/uL; Basophil% 0.2 % (0-1); Eosinophil# 0.03 X10^3/uL; Eosinophils% 0.2 % (0-5); Hematocrit 45.8 % (37-47); Hemoglobin 15.7 g/dL (12.0-15.0); Lymphocyte # 1.73 X10^3/ul (0.83-4.51); Mean Corp Hgb Conc 34.3 g/dL (32-36); Mean Corpuscular Hgb 29.6 pg (27.0-32.0); Mean Corpuscular Volume 86.4 fL (81-99); Mean Platelet Vol. 10.6 fl (6.2-12.0); Monocyte# 0.84 X10^3/uL; Monocyte% 5.4 % (0-10); NRBC Flagged by Analyzer 0 % (0-5); Neutrophil # 12.98 X10^3/uL (2.7-7.7); Neutrophil % 82.7 % (47-70); Platelet Count 183 K/mm3 (150-450); RBC Distribution Width CV 13.2 % (11.6-14.6); RBC Distribution Width SD 41.6 fl (35.1-43.9); White Blood Count 15.7 K/mm3 (4.4-11.0)
[2021-10-13 15:53] LABS: AST(SGOT) 15 U/L (15-37); Alanine Aminotransfer ALT/SGPT 25 U/L (13-56); Albumin, Serum 3.7 g/dL (3.2-5.0); Alkaline Phosphatase 84 U/L (45-117); Anion Gap 11 (5-15); BUN 16 mg/dL (7-18); BUN/Creat Ratio 19.3 RATIO (10-20); CPK Total, Creatine Kinase 96 U/L (26-192); Calcium,Total 10.9 mg/dL (8.5-10.1); Chloride 106 mmol/L (98-107); Creatinine, Serum 0.83 mg/dL (0.55-1.02); EST Glomerular Filtration Rate 70 mL/min (>60); Est Glom Filt Rate - Afr Amer 85 mL/min (>60); Estimated Creatinine Clearance 47.46 ml/min; Globulin 3.6 g/dL (2.2-4.2); Glucose 248 mg/dL (74-106); Potassium 3.3 mmol/L (3.5-5.1); Protein, Total 7.3 g/dL (6.4-8.2); Prothrombin Time (Protime)PT. 42.3 SECONDS (11.7-14.9); Sodium Level 139 mmol/L (136-145)
[2021-10-13 15:55] LABS: International Normalized Ratio 4.5
--- NOTE | 2021-10-13 15:56 | NURSING ---
Call from lab , PT INR 4.5, dr miller made aware.
[2021-10-13 16:04] LABS: Lactic Acid 3.6 mmol/L (0.4-1.9)
[2021-10-13] MEDS: Ondansetron 4 MG/2 ML Vial IM (16:20)
[2021-10-13] MEDS: Morphine 4 MG/ML Syringe IM (16:20)
[2021-10-13] MEDS: 0.9% Normal Saline 1,000 ML 999 ML IV (16:43)
[2021-10-13 17:37] LABS: Bacteria 0 SEEN /hpf (None Seen); Mucous, Urine 0 SEEN /hpf (<or=2+); Red Blood Cells-Urine 0 SEEN /hpf (0-5)
[2021-10-13 17:46] LABS: Color, Urine Yellow (Yellow); Glucose, Dipstick 1000 mg/dl (Normal); Ketone-Dipstick 5 mg/dl (Negative); Leukocyte Esterase-Dipstick Negative /ul (Negative); Nitrite-Dipstick Negative (Negative); Occult Blood-Urine Negative /ul (Negative); Protein-Dipstick 15 mg/dl (Negative); Urine Bilirubin Dipstick Negative (Negative); Urine Clarity Clear (Clear); Urine Urobilinogen Normal (Normal)
[2021-10-13 18:01] LABS: Amphetamine Urine VISTA NEGATIVE (<1000 ng/mL); Barbiturate Urine VISTA NEGATIVE (< 200 ng/mL); Benzodiazepine Urine VISTA POSITIVE (< 200 ng/mL); Cocaine Urine VISTA NEGATIVE (< 300 ng/mL); Ecstacy Urine VISTA NEGATIVE (< 500 ng/mL); Methadone Urine VISTA NEGATIVE (< 300 ng/mL); PCP Urine VISTA NEGATIVE (< 25 ng/mL); THC Urine VISTA NEGATIVE (< 50 ng/mL); Vista UDS pH Range 4
[2021-10-13 18:08] LABS: Squamous Epithelial Cells - UA 0-5 SEEN /hpf (5-10); White Blood Cells 0-5 SEEN /hpf (0-5); Yeast-Urine 1+ /hpf (None Seen)
[2021-10-13 18:28] LABS: Acetaminophen (Tylenol) Level < 2.0 ug/mL (10.0-30.0); Salicylate < 1.7 mg/dL (2.8-20.0)
--- NOTE | 2021-10-13 18:49 | HP.PCM.HOS_ITS ---
HPI - General General Date of Admission: 10/13/21 Date of Service: 10/13/21 Chief Complaint: acute metabolic encephalopathy, intentional overdose HPI Narrative LAURA MARTIN, is a 80 F with a past medical history as outlined. She was admitted through the ED on 10/13/2021 after being found unresponsive at home. Patient's children had not had from here for about 1-1/2 days so they called the squad to go check on the patient. Patient was found naked in the bathroom with a lot of pills lying around hair when the squad arrived. She could not follow commands and was not answering any questions. There was no obvious sign of trauma when she was found. She was therefore brought into the ED. History was mainly taken from her daughter and son as patient was unresponsive. According to her daughter she went back to her mother's house after she was brought to the ED and she found an empty bottle of alprazolam 0.5 mg tablets. Patient states that this was recently refilled a few days ago and the bottle was full. She also found a nearly empty bottle of Xarelto. She therefore suspected that her mother had taken those pills as an overdose. Daughter states he subsequently found and notes that her mother had written stating which indicated that she wanted to commit suicide with overdose of the pills. Vitals in the ED were blood pressure 155/65, pulse rate of 67, respiratory rate of 22 and she was saturating at 98% on room air. CBC showed WBC of 15.7 with hemoglobin of 15.7 and platelets of 183. INR was 4.5. ABG showed pH of 7.39 with total CO2 of 23 and PO2 of 129 also on room air. Chemistry was significant for potassium of 3.3 but was otherwise unremarkable. Lactic acid was 3.6 and calcium was 10.9 with glucose of 248 and liver enzymes were within normal limits. Urinalysis showed no evidence of UTI and urine salicylate was less than 1.7. Urine toxicology was positive for benzodiazepines and serum alcohol level was 5. CT of the brain showed chronic involutional changes and cervical spine CT showed partial opacification of the right mastoid air cells. Chest x-ray showed no acute abnormality and lumbar spine x-ray showed degenerative changes of the spine. EKG showed normal sinus rhythm with no QT prolongation and no other acute ST changes. The ED did speak to poison control center who recommended looking of cardiac abnormalities and to repeat lactic acid. Half- life of Xanax was thought to be about 16 hours especially due to the patient's advanced age. Patient has been admitted to the ICU to be managed for intentional polysubstance overdose and attempted suicide as well as acute metabolic encephalopathy. [facility] Medical History Adult failure to thrive Anxiety DDD (degenerative disc disease) DVT (deep venous thrombosis) Essential (primary) hypertension History of DVT of lower extremity (05/2017) Hyperlipidemia Obesity Osteoarthritis Paroxysmal atrial fibrillation Segmental and somatic dysfunction of lumbar region Segmental and somatic dysfunction of pelvic region Segmental and somatic dysfunction of sacral region Segmental and somatic dysfunction of thoracic region Small bowel obstruction Type 2 diabetes mellitus whipple surgery Home Medications bumetanide 0.5 mg tablet 1 - 2 mg PO DAILY PRN Swelling 05/25/19 [History Last Taken Unknown] fluticasone propionate 50 mcg/actuation nasal spray,suspension 1 spray NASAL DAILY PRN Allergy Symptoms 05/25/19 [History Last Taken Unknown] metformin 500 mg tablet,extended release 24 hr 1,000 mg PO BID diabetes 05/25/19 [History Last Taken 10/06/20] atorvastatin 40 mg tablet 40 mg PO QHS cholesterol 12/11/19 [History Last Taken 10/06/20] loratadine 10 mg tablet 10 mg PO DAILY ALLERGIES 10/06/20 [History Last Taken 10/06/20] rivaroxaban 20 mg tablet (Xarelto) 20 mg PO DAILY #30 tabs 10/08/20 [Rx Last Taken Unknown] alprazolam 0.5 mg tablet 1 tab PO QHS sleep 09/24/21 [History Last Taken Unknown] atenolol 50 mg tablet 50 mg PO DAILY blood pressure 09/24/21 [History Last Taken Unknown] cefdinir 300 mg capsule 300 mg PO BID #10 caps 09/26/21 [Rx Last Taken Unknown] Allergy/AdvReac Type Severity Reaction Status Date / Time duloxetine [From Cymbalta] Allergy Other Verified 09/24/21 16:05 ramelteon [From Rozerem] Allergy Other Verified 09/24/21 16:05 bupropion AdvReac Other Verified 09/24/21 16:05 bupropion HCl AdvReac Other Verified 09/24/21 16:05 [From Wellbutrin] dexfenfluramine HCl AdvReac Unknown Verified 09/24/21 16:05 [From Redux] hydrochlorothiazide AdvReac Other Verified 09/24/21 16:05 ketorolac tromethamine AdvReac Itching Verified 09/24/21 16:05 [From Toradol] oxaprozin [From Daypro] AdvReac Other Verified 09/24/21 16:05 Family History Mother Myocardial infarction Father Asthma Surgical History H/O medial meniscus repair of right knee History of bilateral carpal tunnel release History of bladder suspension procedure History of bladder suspension procedure History of bowel resection History of hysterectomy History of hysterectomy Hx of cholecystectomy S/P cholecystectomy sigmoid colon removed vaginal wall repaired Social History Smoking Status: Never smoker second hand exposure: No alcohol intake: current alcohol intake frequency: holidays/special occasions only substance use type: does not use caffeine: Yes what type of physical activity do you participate in: none frequency: does not exercise seatbelt use: always ROS Review of Systems ROS Unobtainable: due to encephalopathy Vital Signs Vital Signs Vital Signs: 10/13/21 13:49 10/13/21 14:15 10/13/21 14:15 Temperature 96.7 F L Temperature Source Axillary Pulse Rate 72 73 Respiratory Rate 20 H 18 Blood Pressure 161/76 H 164/70 H Blood Pressure Mean 104 101 Pulse Ox 97 97 Oxygen Delivery Method Room Air Room Air Room Air 10/13/21 14:15 10/13/21 17:30 Temperature Temperature Source Rectal Pulse Rate 67 Respiratory Rate 22 H Blood Pressure 155/65 H Blood Pressure Mean 95 Pulse Ox 98 Oxygen Delivery Method Room Air Weight Weight: 219 lb 5.759 oz Body Mass Index (BMI) 37.6 Physical Exam Const Constitutional Narrative: minimally responsive due to encephalopathy Orientation / Consciousness: lethargic HEENT normocephalic and head/scalp atraumatic HEENT Narrative: dry oral mucosal membrane Eyes PERRL and EOMs intact bilaterally Eyes Narrative: pupils not pinpoint, equal and react to light Neck no lymphadenopathy and supple Resp Resp Narrative: mildly diminished breath sounds bibasally, no wheezes or crackles. On room air. Cardio regular rate, regular rhythm, S1 normal heart sound, S2 normal heart sound and no murmurs GI normal to inspection, nondistended, normoactive bowel sounds, soft to palpation, non-tender and non-distended Extremity normal to inspection Neuro Neuro Narrative: encephalopathic, minimally responsive to light touch and pain. GCS is Results Lab / Micro Data Result Diagrams: 10/13/21 15:20 10/13/21 15:20 Labs: Laboratory Results - last 24 hr 10/13/21 15:20: WBC 15.7 H, RBC 5.30, Hgb 15.7 H, Hct 45.8, MCV 86.4, MCH 29.6, MCHC 34.3, RDW Std Deviation 41.6, RDW Coeff of Viviane 13.2, Plt Count 183, MPV 10.6, Immature Gran % (Auto) 0.500, Neut % (Auto) 82.7 H, Lymph % (Auto) 11.0 L, [place] % (Auto) 5.4, Eos % (Auto) 0.2, Baso % (Auto) 0.2, Absolute Neuts (auto) 13.0 H, Absolute Lymphs (auto) 1.73, Nucleated RBC % 0 10/13/21 15:20: PT 42.3 H, INR 4.5 H* 10/13/21 15:20: Sodium 139, Potassium 3.3 L, Chloride 106, Carbon Dioxide 22.0, Anion Gap 11, BUN 16, Creatinine 0.83, Estim Creat Clear Calc 47.46, Est GFR (MDRD) Af Amer 85, Est GFR (MDRD) Non-Af 70, BUN/Creatinine Ratio 19.3, Glucose 248 H, Calcium 10.9 H, Total Bilirubin 1.00, AST 15, ALT 25, Alkaline Phosphatase 84, Total Creatine Kinase 96, Total Protein 7.3, Albumin 3.7, Globulin 3.6, Albumin/Globulin Ratio 1.0 10/13/21 15:20: Lactic Acid 3.6 H* 10/13/21 15:20: Salicylates < 1.7 L, Acetaminophen < 2.0 L, Ethyl Alcohol 5.0 10/13/21 17:30: Urine Opiates Screen NEGATIVE, Urine Methadone Screen NEGATIVE, Ur Barbiturates Screen NEGATIVE, Ur Phencyclidine Scrn NEGATIVE, Ur Amphetamines Screen NEGATIVE, MDMA (Ecstasy) Screen NEGATIVE, U Benzodiazepines Scrn POSITIVE H, Urine Cocaine Screen NEGATIVE, U Cannabinoids Screen NEGATIVE, Ur Drug Screen Comment 10/13/21 17:30: Urine Color Yellow, Urine Clarity Clear, Urine pH 5.0, Ur Specific [place] 1.020, Urine Protein 15 H, Urine Glucose (UA) 1000 H, Urine Ketones 5 H, Urine Occult Blood Negative, Urine Nitrite Negative, Urine Bilirubin Negative, Urine Urobilinogen Normal, Ur Leukocyte Esterase Negative, Urine RBC 0 SEEN, Urine WBC 0-5 SEEN, Ur Squamous Epith Cells 0-5 SEEN, Urine Bacteria 0 SEEN, Urine Mucus 0 SEEN, Urine Yeast 1+ ABG Data ABG results: ABG 10/13/21 15:24 Specimen Type ART Sample Site L Brach pH 7.39 Bicarbonate Actual 22.3 Total CO2 23 Base Excess -3 L O2 Saturation 99 ABG pCO2 36.6 ABG pO2 129 H Raghu Test Positive O2 Delivery Device Room Air Radiology Impression Brain CT 10/13/21 14:09 IMPRESSION: Chronic involutional changes of the brain. Electronically Signed: Uvaldo Biswas MD at 14:47 EDT , Cervical Spine CT 10/13/21 14:09 IMPRESSION: Partial opacification of the right mastoid air cells. Electronically Signed: Uvaldo Biswas MD at 14:48 EDT , Lumbar Spine X-Ray 10/13/21 14:09 IMPRESSION: Degenerative changes of the spine, as detailed above. Mild degree of loss of height of the superior endplate of the L4 vertebrae. Electronically Signed: Uvaldo Biswas MD at 14:50 EDT , Chest X-Ray 10/13/21 14:30 IMPRESSION: No acute abnormality is seen. Electronically Signed: Uvaldo Biswas MD at 14:49 EDT , Assessment & Plan Assessment/Plan (1) Suicide attempt: (2) Benzodiazepine overdose: (3) Acidosis, lactic: (4) Elevated INR: PLAN: Plan #Acute metabolic encephalopathy due to intentional overdose with alprazolam * Patient intentionally took about 30 0.5 mg tablets of alprazolam and also took an unknown number of pills of Xarelto in a suicide attempt. She did leave behind a note indicating she wanted to commit suicide. * Admit to ICU. * Urine tox positive for benzodiazepines and lactic acid also elevated. * Patient currently hemodynamically stable and maintaining her airway. She is on room air. * Will need supportive care for now. * Repeat lactic acid. * Hydrate with IV fluid normal saline at 125 cc/h. * INR also elevated and this is likely due to Xarelto overdose. There is no overt sign of bleeding so monitor INR for now * Strict bedrest until patient is more alert. * Consult critical care * Do serial EKGs though cardiac abnormalities rare with benzodiazepine overdose. However since we do not know what else she may have taken I think it is prudent to repeat EKGs every 6 hours for the next 24 hours until she is much more alert and responsive * Hold patient Xanax and Xarelto as well as all her other medications. * hold off on abg's now as she is maintaining her airway and saturating well on room air * #Elevated INR * INR is 4.5. Will hold Xarelto. This is likely due to Xarelto overdose. * There is no evidence of bleeding right now so we will hold off giving any vitamin K or FFP's. * Repeat INR tomorrow * #Lactic acidosis: Likely due to benzodiazepine overdose. Been hydrated with IV fluids. Will trend lactic acid. #Hypokalemia: K is 3.3. Will replace and trend. Will also check magnesium level #Type 2 diabetes mellitus * hold DM meds. * ISS. Accuchecks q6hrly * hypoglycemic protocol * #Hypertension: hold atenolol. #Hyperlipidemia: hold statin as she is NPO DVT prophylaxis: not indicated as INR is supratherapeutic COde status: full code * I counseled his son and daughter who are by her bedside about her CODE STATUS. His son is the POA. He initially stated that patient had said she wanted to be DNR but his sister clarified that the mother had says she only did not want resuscitation if she had a heart attack. In light of that, son states he wants everything done for her now and would want CPR and intubation if needed. * Total [id number] time: 16 minutes * Total [id number] critical care time spent on patient: 45 minutes Charges/Coding Visit Charges Inpatient E&M: 02007 Init Hosp L3 Procedures Hospitalists Procedures: 92635 Advncd Care Plan 30 Min (critical care time: 64953)
--- NOTE | 2021-10-13 18:53 | CM.ED ---
Social Work Assessment Social Work Psychiatric Assessment Reason for consult: Suicide attempt Informant(s): , Pt?s children Goyo and Dixie. Chart Review Chief Complaint: MD Buitrago updated this worker that pt has chronic UTI and currently has delirium. Pt?s son has been trying to get pt to a facility in [facility]. MD Buitrago states pt is delirious so she will need to stay. MD Buitrago then updated this worker that pt?s daughter went to pt?s home and found multiple pill bottles and note saying she wants to . SW in to speak with pt. Pt currently sleeping during assessment. Pt?s children Goyo and Dixie in pt?s room and assist in assessment. Dixie states that she tried to get a hold of pt yesterday and today and pt had shut her phone off and Dixie was not able to get a hold of her. Dixie states that she called pt?s neighbor to check on pt and pt?s friend found pt on the floor and Dixie then called 911. Dixie states that she went to pt?s home today then and found empty bottles of pills. Dixie states pt should not have empty bottles of pills as her medications come packaged. Dixie states that she then found what appears to be a suicide note. Goyo showed this worker the note on his phone. The note states things such as ?you know I want to be mixed with my .? ?I am tired of all the fighting.? ?Kids don?t hate me.? Both Goyo and Dixie state that they are surprised that pt did this and that there were no bread crumbs or hints leading up to pt. Dixie states that pt would make vague comments such as ?I am tired? and ?Dad take me home? but states pt has not said that she wanted to kill herself. Elfego state that pt does get frequent UTI and confusion and will talk about living in a two story home but pt lives in a one story home. Marital/Social History: Living Situation: Elfego states that pt lives alone. Elfego states pt gets frequent UTI?s and confusion Support/Resources: Goyo tatyana Dixie are currently at [facility]. Dixie states that she lives in [place] but likes to check in on pt. History: Unable to assess Education and Employment History: Unable to assess Mental Health Treatment/History: Yes. Elfego states pt has seen counselors/therapist before but states pt is not currently seeing one. Elfego states pt with history of Anxiety and Depression, states pt is not on any medications. Both Elfego states they are surprised about pt?s actions. Triggers/Stressors: Unable to assess. Elfego states pt has lost a lot of people stating that Goyo?s Dad , pt?s best friend and pt recently lost her sister. Elfego states pt does not really get out and do things. Dixie states pt likes to go out with her and she will bring her daughter to see pt. Dixie states that she has tried to get pt to hang out with her neighbor but pt has not done so. Coping Skills: Unable to assess Abuse Issues: Unable to assess Substance Abuse Hx: Elfego states pt does not use substances. Risk to Self/Others: ? Suicidal: Pt with what appears could be a suicide attempt but SW is not able to speak to pt at this time to confirm as pt is sleeping during assessment and not able to participate. Indications that it could?ve been a suicide attempt include pt?s family finding empty pill bottles and also possible suicide note. Elfego states that years ago when Dixie was 9 years old she thinks pt may have attempted suicide before. Elfego states that pt has been to a psychiatric Unit before, states that it was around 2016. Elfego states that pt was sent to [place]. Dixie states that the nurse at the time had asked pt if she was sad and if she wanted to and pt had said yes and then pt was sent to [place]. AMY reviewed chart. Pt was at [facility] in 2019 for suicidal and was [place] Slipped to [facility]. SW unable to speak with pt regarding this at this time though due to pt?s current presentation ? Homicidal: Elfego states no history of homicidal thoughts or plans. ? Violence: Elfego states pt has no history of cutting, no violence towards others or objects. SW unable to assess pt?s Mental Status Exam at this time due to pt?s current presentation. SW discussed with Elfego that pt will need to be medically cleared and then spoken to. SW explained that it is likely pt will need inpatient psych placement but again stated pt will need to be medically cleared and then evaluated. Dixie states she would not want pt to return to [place] if possible. AMY explained that it just depends on bed availability. SW asked Goyo and Dixie who the HCPOA is. Both Goyo and Dixie state Goyo is HCPOA. SW asked if there are HCPOA documents. Goyo states that he has HCPOA documents in his truck and can bring them in. SW asked Goyo to do so. Goyo states that he is trying to get pt into Assisted Living. Goyo states that he will continue to work on that. AMY spoke with RUBEN Vyas. Pt took Xanax and will be admitted to Acute for Medical Clearance and then will need to evaluated. Plan: Admit to Acute for Medical Clearance. Once pt is Medical Cleared pt will need to be evaluated for possible inpatient psych placement. Brittani Wilson [employer], INFORMATION TECHNOLOGY ASSOCIATE
[2021-10-13 19:29] LABS: Reflex Lactate? Y
--- NOTE | 2021-10-13 20:12 | ED.RN ---
REPORT CALLED TO [facility] ON ICU
[2021-10-13] MEDS: 0.9% Normal Saline 1,000 ML 125 ML IV (20:38)
--- NOTE | 2021-10-13 23:47 | NURSING ---
Ultrasound IV attempted x5 by Michelle Harp RN and Amina Cuellar RN without success. Dr Alaniz made aware and room prepped for central line.
--- NOTE | 2021-10-13 23:58 | PCM.HOSP.N ---
Hospitalist Note Central line note: Patient with ongoing significant issues with access with inability to obtain labs. Several staff tried even with ultrasound guidance attempts. Given currently patient has minimal access which is precarious and unable to obtain any lab sticks opted to place line. Discussed need for line placement with the patient and consent was given. Right IJ region prepped and draped in standard fashion. US guidance used to obtain access, guidewire threaded without issue, central line catheter placed over guidewire and wire removed w/ cap placed. Lines again drawn and flushed without difficulty. Central line sutured in place. CXR ordered. Procedures Hospitalists Procedures: 16576 Insert Non-tunnel CV Cath Multi Select Codes Hospitalists' Procedures Procedures: 10146 Insert Non-tunnel CV Cath
[2021-10-14] VITALS (29 sets, daily range): BP systolic 114–151; BP diastolic 52–109; PULSE 69–80; RESP 18–30; TEMP 36.1–36.6; O2SAT 94–99
[2021-10-14] MEDS: Morphine 2 MG/ML Syringe IV (00:32)
--- NOTE | 2021-10-14 01:22 | RAD_ITS ---
STUDY: X-RAY CHEST REASON FOR EXAM: Female, 80 years old. Central line placement TECHNIQUE: AP portable. 1:25 AM. COMPARISON: 10/13/2021. FINDINGS: LINES/DEVICES: Central venous catheter from right IJ approach with tip in the region of the upper right atrium. LUNGS: No consolidation. No pneumothorax. MEDIASTINUM: Unremarkable. CARDIAC SILHOUETTE: Not enlarged. BONES AND SOFT TISSUES: No acute abnormalities. RAD/CXR for Line Placement IMPRESSION: Central line as described. No pneumothorax. Electronically Signed: Aleyda Alexander MD at 1:53 EDT ,
[2021-10-14 02:04] LABS: Lactic Acid 1.2 mmol/L (0.4-1.9)
--- NOTE | 2021-10-14 03:00 | EKG12_ITS ---
Test Reason : AM EKG Blood Pressure : / mmHG Vent. Rate : 076 BPM Atrial Rate : 076 BPM P-R Int : 178 ms QRS Dur : 094 ms QT Int : 354 ms P-R-T Axes : 057 -07 221 degrees QTc Int : 398 ms Sinus rhythm with Premature atrial complexes T wave abnormality, consider lateral ischemia Abnormal ECG Confirmed by DWIGHT KEE, ANNE ([id number]), staff editor AIDEN ELLIS ([id number]) on 10/17/2021 8:07:27 AM Referred By: Confirmed By:ANNE QUINTANILLA MD
[2021-10-14] MEDS: 0.9% Normal Saline 1,000 ML 125 ML IV ×2 (04:42→11:57)
[2021-10-14 04:55] LABS: Absolute Lymphocyte Count 2.35 X10^3/uL (0.83-4.51); Absolute Neutrophil Count 8.7 X10^3/uL (2.0-7.7); Basophil# 0.04 X10^3/uL; Basophil% 0.3 % (0-1); Eosinophil# 0.23 X10^3/uL; Eosinophils% 1.9 % (0-5); Hematocrit 41.2 % (37-47); Hemoglobin 13.9 g/dL (12.0-15.0); Lymphocyte # 2.35 X10^3/ul (0.83-4.51); Lymphocyte % 19.5 % (19-41); Mean Corp Hgb Conc 33.7 g/dL (32-36); Mean Platelet Vol. 10.7 fl (6.2-12.0); Monocyte# 0.69 X10^3/uL; Monocyte% 5.7 % (0-10); NRBC Flagged by Analyzer 0 % (0-5); Neutrophil # 8.66 X10^3/uL (2.7-7.7); Neutrophil % 71.7 % (47-70); Platelet Count 164 K/mm3 (150-450); RBC Distribution Width CV 13.4 % (11.6-14.6); Red Blood Count 4.63 M/mm3 (4.2-5.4); White Blood Count 12.1 K/mm3 (4.4-11.0)
[2021-10-14 05:28] LABS: Anion Gap 6 (5-15); BUN 14 mg/dL (7-18); BUN/Creat Ratio 21.7 RATIO (10-20); Calcium,Total 9.3 mg/dL (8.5-10.1); Chloride 109 mmol/L (98-107); Creatinine, Serum 0.64 mg/dL (0.55-1.02); EST Glomerular Filtration Rate 94 mL/min (>60); Est Glom Filt Rate - Afr Amer 114 mL/min (>60); Estimated Creatinine Clearance 36.08 ml/min; Glucose 214 mg/dL (74-106); Potassium 3.3 mmol/L (3.5-5.1); Sodium Level 141 mmol/L (136-145)
[2021-10-14] MEDS: Potassium Chloride 20mEq/100mL 20 MEQ/100 ML IV.SOLN. 100 MEQ IV BOLUS ×2 (07:51→09:09)
[2021-10-14 08:28] LABS: International Normalized Ratio 2.7; Prothrombin Time (Protime)PT. 28.4 SECONDS (11.7-14.9)
--- NOTE | 2021-10-14 09:00 | EKG12_ITS ---
Test Reason : OVERDOSE Blood Pressure : / mmHG Vent. Rate : 070 BPM Atrial Rate : 070 BPM P-R Int : 176 ms QRS Dur : 098 ms QT Int : 406 ms P-R-T Axes : 055 -15 177 degrees QTc Int : 438 ms Sinus rhythm with Premature atrial complexes ST & T wave abnormality, consider lateral ischemia Abnormal ECG Confirmed by DWIGHT KEE, ANNE ([id number]), editor school photograph AIDEN ELLIS ([id number]) on 10/17/2021 8:07:46 AM Referred By: DIRK Confirmed By:ANNE QUINTANILLA MD
--- NOTE | 2021-10-14 10:01 | PN.HOSP_ITS ---
Subjective Subjective Patient seen and examined. She is more alert now adn communicative. She says she remembers taking pills yesterday because she wanted to kill herself. She denies any suicidal ideations now, and doesnt remember the names of the pills she took. She has remained hemodynamically stable. Review of systems is otherwise ne gative. Objective Data Objective Data Vital Signs: Vital Signs Temp Pulse Resp BP Pulse Ox O2 Del Method O2 Flow Rate 97.6 F L 72 20 H 151/72 H 94 Room Air 2 10/14/21 08:00 10/14/21 09:00 10/14/21 09:00 10/14/21 09:00 10/14/21 09:00 10/14/21 09:00 10/13/21 22:00 Oxygen Flow Rate (L/min) 2 Oxygen Delivery Method Room Air Weight: 209 lb 3.499 oz Body Mass Index (BMI) 37.7 Intake & Output: Intake and Output for Last 24 Hours 10/12/21 10/13/21 10/14/21 23:59 23:59 23:59 Intake Total 1120 / 1120 1100 / 1100 Output Total 650 / 650 200 / 200 Balance 470 / 470 900 / 900 Lab / Micro Data Result Diagrams: 10/14/21 04:40 10/14/21 04:40 Labs: Laboratory Results - last 24 hr 10/13/21 15:20: WBC 15.7 H, RBC 5.30, Hgb 15.7 H, Hct 45.8, MCV 86.4, MCH 29.6, MCHC 34.3, RDW Std Deviation 41.6, RDW Coeff of Viviane 13.2, Plt Count 183, MPV 10.6, Immature Gran % (Auto) 0.500, Neut % (Auto) 82.7 H, Lymph % (Auto) 11.0 L, [place] % (Auto) 5.4, Eos % (Auto) 0.2, Baso % (Auto) 0.2, Absolute Neuts (auto) 13.0 H, Absolute Lymphs (auto) 1.73, Nucleated RBC % 0 10/13/21 15:20: PT 42.3 H, INR 4.5 H* 10/13/21 15:20: Sodium 139, Potassium 3.3 L, Chloride 106, Carbon Dioxide 22.0, Anion Gap 11, BUN 16, Creatinine 0.83, Estim Creat Clear Calc 47.46, Est GFR (MDRD) Af Amer 85, Est GFR (MDRD) Non-Af 70, BUN/Creatinine Ratio 19.3, Glucose 248 H, Calcium 10.9 H, Total Bilirubin 1.00, AST 15, ALT 25, Alkaline Phos phatase 84, Total Creatine Kinase 96, Total Protein 7.3, Albumin 3.7, Globulin 3.6, Albumin/Globulin Ratio 1.0 10/13/21 15:20: Lactic Acid 3.6 H* 10/13/21 15:20: Salicylates < 1.7 L, Acetaminophen < 2.0 L, Ethyl Alcohol 5.0 10/13/21 17:30: Urine Opiates Screen NEGATIVE, Urine Methadone Screen NEGATIVE, Ur Barbiturates Screen NEGATIVE, Ur Phencyclidine Scrn NEGATIVE, Ur Amphetamines Screen NEGATIVE, MDMA (Ecstasy) Screen NEGATIVE, U Benzodiazepines Scrn POSITIVE H, Urine Cocaine Screen NEGATIVE, U Cannabinoids Screen NEGATIVE, Ur Drug Screen Comment 10/13/21 17:30: Urine Color Yellow, Urine Clarity Clear, Urine pH 5.0, Ur Specific [place] 1.020, Urine Protein 15 H, Urine Glucose (UA) 1000 H, Urine Ketones 5 H, Urine Occult Blood Negative, Urine Nitrite Negative, Urine Bilirubin Negative, Urine Urobilinogen Normal, Ur Leukocyte Esterase Negative, Urine RBC 0 SEEN, Urine WBC 0-5 SEEN, Ur Squamous Epith Cells 0-5 SEEN, Urine Bacteria 0 SEEN, Urine Mucus 0 SEEN, Urine Yeast 1+ 10/14/21 00:50: Lactic Acid 1.2 10/14/21 04:40: WBC 12.1 H, RBC 4.63, Hgb 13.9, Hct 41.2, MCV 89.0, MCH 30.0, MCHC 33.7, RDW Std Deviation 44.0 H, RDW Coeff of Viviane 13.4, Plt Count 164, MPV 10.7, Immature Gran % (Auto) 0.900, Neut % (Auto) 71.7 H, Lymph % (Auto) 19.5, [place] % (Auto) 5.7, Eos % (Auto) 1.9, Baso % (Auto) 0.3, Absolute Neuts (auto) 8.7 H, Absolute Lymphs (auto) 2.35, Nucleated RBC % 0 10/14/21 04:40: Sodium 141, Potassium 3.3 L, Chloride 109 H, Carbon Dioxide 26.0, Anion Gap 6, BUN 14, Creatinine 0.64, Estim Creat Clear Calc 36.08, Est GFR (MDRD) Af Amer 114, Est GFR (MDRD) Non-Af 94, BUN/Creatinine Ratio 21.7 H, Glucose 214 H, Calcium 9.3 10/14/21 08:00: PT 28.4 H, INR 2.7 ABG Data ABG results: ABG 10/13/21 15:24 Specimen Type ART Sample Site L Brach pH 7.39 Bicarbonate Actual 22.3 Total CO2 23 Base Excess -3 L O2 Saturation 99 ABG pCO2 36.6 ABG pO2 129 H Raghu Test Positive O2 Delivery Device Room Air Radiography Diagnostic Testing: Radiology Impression Brain CT 10/13/21 14:09 IMPRESSION: Chronic involutional changes of the brain. Electronically Signed: Uvaldo Biswas MD at 14:47 EDT , Cervical Spine CT 10/13/21 14:09 IMPRESSION: Partial opacification of the right mastoid air cells. Electronically Signed: Uvaldo Biswas MD at 14:48 EDT , Lumbar Spine X-Ray 10/13/21 14:09 IMPRESSION: Degenerative changes of the spine, as detailed above. Mild degree of loss of height of the superior endplate of the L4 vertebrae. Electronically Signed: Uvaldo Biswas MD at 14:50 EDT , Chest X-Ray 10/13/21 14:30 IMPRESSION: No acute abnormality is seen. Electronically Signed: Uvaldo Biswas MD at 14:49 EDT , Chest X-Ray 10/14/21 01:22 IMPRESSION: Central line as described. No pneumothorax. Electronically Signed: Aleyda Alexander MD at 1:53 EDT , Physical Exam Const alert Constitutional Narrative: lethargic but communicative Orientation / Consciousness: lethargic HEENT normocephalic and head/scalp atraumatic Head and Scalp: normocephalic Mouth: dry mucous membranes Eyes PERRL and EOMs intact bilaterally Neck no lymphadenopathy and supple Resp Resp Narrative: mildly diminished breath sounds bibasally, no wheezes or crackles. On room air. Cardio regular rate, regular rhythm, S1 normal heart sound, S2 normal heart sound and no murmurs GI normal to inspection, nondistended, normoactive bowel sounds, soft to palpation, non-tender and non-distended Extremity normal to inspection and full ROM Neuro oriented x3, CN's II-XII intact bilaterally, moves all extremities and no focal motor deficits Neuro Narrative: Sensorium / Orientation: awake and alert Motor Exam: strength 5/5 throughout Psych affect normal Assessment & Plan Assessment/Plan (1) Suicide attempt: (2) Benzodiazepine overdose: (3) Acidosis, lactic: (4) Elevated INR: PLAN: Plan #Acute metabolic encephalopathy due to intentional overdose with alprazolam * Patient intentionally took about 30 0.5 mg tablets of alprazolam and also took an unknown number of pills of Xarelto in a suicide attempt. She did leave behind a note indicating she wanted to commit suicide. * much more alert and communicative today * passed swallow eval so will start on 1800 calorie cardiac diet. * serial EKG showed no QT prolongation. * * #Elevated INR * INR was 4.5 on admission and is now down to 2.7. * likely due to xarelto overdose * xarelto on hold. WIll trend INR * * #Lactic acidosis: resolved #Hypokalemia: K is 3.3. Will replace and trend. Will also check magnesium level #Type 2 diabetes mellitus * passed swallow eval, so will put on 1800 calorie cardiac diet. * ISS. Accuchecks ACHS. * * #Hypertension: hold atenolol. #Hyperlipidemia: hold statin as she is NPO DVT prophylaxis: not indicated as INR is supratherapeutic COde status: full code * Charges/Coding Visit Charges Inpatient E&M: 50902 Subs Hosp L2
[2021-10-14 10:45] LABS: Magnesium 1.5 mg/dL (1.6-2.6)
--- NOTE | 2021-10-14 11:21 | EX.PCM.CONCC ---
Assessment & Plan Assessment/Plan (1) Encephalopathy: PLAN: Acute toxic/metabolic encephalopathy in a patient with baseline cognitive impairment, history of recurrent UTI Multifactorial etiology likely in the setting of overdose and UTI Mental status seems to be improving Monitor for now CT Brain without any acute pathology (2) UTI (urinary tract infection): PLAN: Probable Acute UTI, history of recurrent UTI Patient's previous urine cultures showed mixed gram-positive and negative organisms Her UA is clear but nitrites, leukocyte and bacteria are present This may be because patient recently finished antibiotics according to her daughter Agree with antibiotics per primary team HPI Consult Data Date of Consult: 10/14/21 HPI Narrative Reason for Consultation: Encephalopathy requiring ICU admission HPI Narrative: LAURA MARTIN, is a 80 F who presents with the above.? 80-year-old female with past medical history of hypertension, type II DM, probably dementia, who lives alone and comes in confused.? History was taken from the patient and her daughter at the bedside.? Patient is alert oriented x2 but not to time.? She could not state why year week in, season or month or day of the week.? She admitted that she knows that her memory is not right.? She denied any dysuria but admits to incontinence of urine.? Denied any fever or chills. Her daughter states that patient has been confused for the last few days.? She was recently on antibiotics for UTI.? She typically gets confused when she gets UTIs.? She was last discharged after hospital stay on 01/19/2021 with acute metabolic encephalopathy secondary to acute UTI and use of narcotics.? Patient's oxycodone was discontinued at discharge. Patient however stated that patient is back on oxycodone and alprazolam.? Patient gets her medications usually in the group pack except for her alprazolam and oxycodone.? She denied any back pain to me.? There is concern that the patient is unable to take care of self herself and lives alone. Vitals in the ED showed blood pressure 176/91, heart rate 72, respiratory 16, temperature 97.8, oxygen sat is 98% on room air.? WBC is 5.5, hemoglobin 15.3, up from 14.2.? CMP showed glucose of 244, calcium 10.7.? UA is clear, nitrite positive, leukocyte estrace positive.? 4+ bacteria.? Urine tox is positive for benzos. CT of the brain showed chronic involuntary changes of the brain.? Chest x-ray showed poor inspiration with some bibasilar atelectasis. [facility] Medical History Adult failure to thrive Anxiety DDD (degenerative disc disease) DVT (deep venous thrombosis) Essential (primary) hypertension History of DVT of lower extremity (05/2017) Hyperlipidemia Obesity Osteoarthritis Paroxysmal atrial fibrillation Segmental and somatic dysfunction of lumbar region Segmental and somatic dysfunction of pelvic region Segmental and somatic dysfunction of sacral region Segmental and somatic dysfunction of thoracic region Small bowel obstruction Type 2 diabetes mellitus whipple surgery Medical History unable to obtain Home Medications bumetanide 0.5 mg tablet 1 - 2 mg PO DAILY PRN Swelling 05/25/19 [History Last Taken Unknown] fluticasone propionate 50 mcg/actuation nasal spray,suspension 1 spray NASAL DAILY PRN Allergy Symptoms 05/25/19 [History Last Taken Unknown] metformin 500 mg tablet,extended release 24 hr 1,000 mg PO BID diabetes 05/25/19 [History Last Taken 10/06/20] atorvastatin 40 mg tablet 40 mg PO QHS cholesterol 12/11/19 [History Last Taken 10/06/20] loratadine 10 mg tablet 10 mg PO DAILY ALLERGIES 10/06/20 [History Last Taken 10/06/20] rivaroxaban 20 mg tablet (Xarelto) 20 mg PO DAILY #30 tabs 10/08/20 [Rx Last Taken Unknown] alprazolam 0.5 mg tablet 1 tab PO QHS sleep 09/24/21 [History Last Taken Unknown] atenolol 50 mg tablet 50 mg PO DAILY blood pressure 09/24/21 [History Last Taken Unknown] cefdinir 300 mg capsule 300 mg PO BID #10 caps 09/26/21 [Rx Last Taken Unknown] Allergy/AdvReac Type Severity Reaction Status Date / Time duloxetine [From Cymbalta] Allergy Other Verified 09/24/21 16:05 ramelteon [From Rozerem] Allergy Other Verified 09/24/21 16:05 bupropion AdvReac Other Verified 09/24/21 16:05 bupropion HCl AdvReac Other Verified 09/24/21 16:05 [From Wellbutrin] dexfenfluramine HCl AdvReac Unknown Verified 09/24/21 16:05 [From Redux] hydrochlorothiazide AdvReac Other Verified 09/24/21 16:05 ketorolac tromethamine AdvReac Itching Verified 09/24/21 16:05 [From Toradol] oxaprozin [From Daypro] AdvReac Other Verified 09/24/21 16:05 Family History Mother Myocardial infarction Father Asthma Family History unable to obtain Surgical History H/O medial meniscus repair of right knee History of bilateral carpal tunnel release History of bladder suspension procedure History of bladder suspension procedure History of bowel resection History of hysterectomy History of hysterectomy Hx of cholecystectomy S/P cholecystectomy sigmoid colon removed vaginal wall repaired Surgical History unable to obtain Social History Smoking Status: Never smoker second hand exposure: No alcohol intake: current alcohol intake frequency: holidays/special occasions only substance use type: does not use caffeine: Yes what type of physical activity do you participate in: none frequency: does not exercise seatbelt use: always Physical Exam Const no apparent distress General Appearance: frail HEENT normocephalic Mouth: oral and palatal mucosa normal Eyes PERRL Neck full ROM Chest inspection of chest normal Chest Narrative: Slightly decresed BS bilaterally Resp normal respiratory effort Effort and Inspection: able to speak in complete sentences Auscultation: clear to auscultation bilaterally Cardio regular rate GI normal to inspection, nondistended, normoactive bowel sounds no CVA tenderness Back/Spine no CVA tenderness Skin no rashes or lesions noted Lab / Micro Data Result Diagrams: 10/14/21 04:40 10/14/21 04:40 Labs: Laboratory Results - last 24 hr 10/13/21 15:20: WBC 15.7 H, RBC 5.30, Hgb 15.7 H, Hct 45.8, MCV 86.4, MCH 29.6, MCHC 34.3, RDW Std Deviation 41.6, RDW Coeff of Viviane 13.2, Plt Count 183, MPV 10.6, Immature Gran % (Auto) 0.500, Neut % (Auto) 82.7 H, Lymph % (Auto) 11.0 L, [place] % (Auto) 5.4, Eos % (Auto) 0.2, Baso % (Auto) 0.2, Absolute Neuts (auto) 13.0 H, Absolute Lymphs (auto) 1.73, Nucleated RBC % 0 10/13/21 15:20: PT 42.3 H, INR 4.5 H* 10/13/21 15:20: Sodium 139, Potassium 3.3 L, Chloride 106, Carbon Dioxide 22.0, Anion Gap 11, BUN 16, Creatinine 0.83, Estim Creat Clear Calc 47.46, Est GFR (MDRD) Af Amer 85, Est GFR (MDRD) Non-Af 70, BUN/Creatinine Ratio 19.3, Glucose 248 H, Calcium 10.9 H, Total Bilirubin 1.00, AST 15, ALT 25, Alkaline Phosphatase 84, Total Creatine Kinase 96, Total Protein 7.3, Albumin 3.7, Globulin 3.6, Albumin/Globulin Ratio 1.0 10/13/21 15:20: Lactic Acid 3.6 H* 10/13/21 15:20: Salicylates < 1.7 L, Acetaminophen < 2.0 L, Ethyl Alcohol 5.0 10/13/21 17:30: Urine Opiates Screen NEGATIVE, Urine Methadone Screen NEGATIVE, Ur Barbiturates Screen NEGATIVE, Ur Phencyclidine Scrn NEGATIVE, Ur Amphetamines Screen NEGATIVE, MDMA (Ecstasy) Screen NEGATIVE, U Benzodiazepines Scrn POSITIVE H, Urine Cocaine Screen NEGATIVE, U Cannabinoids Screen NEGATIVE, Ur Drug Screen Comment 10/13/21 17:30: Urine Color Yellow, Urine Clarity Clear, Urine pH 5.0, Ur Specific [place] 1.020, Urine Protein 15 H, Urine Glucose (UA) 1000 H, Urine Ketones 5 H, Urine Occult Blood Negative, Urine Nitrite Negative, Urine Bilirubin Negative, Urine Urobilinogen Normal, Ur Leukocyte Esterase Negative, Urine RBC 0 SEEN, Urine WBC 0-5 SEEN, Ur Squamous Epith Cells 0-5 SEEN, Urine Bacteria 0 SEEN, Urine Mucus 0 SEEN, Urine Yeast 1+ 10/14/21 00:50: Lactic Acid 1.2 10/14/21 04:40: WBC 12.1 H, RBC 4.63, Hgb 13.9, Hct 41.2, MCV 89.0, MCH 30.0, MCHC 33.7, RDW Std Deviation 44.0 H, RDW Coeff of Viviane 13.4, Plt Count 164, MPV 10.7, Immature Gran % (Auto) 0.900, Neut % (Auto) 71.7 H, Lymph % (Auto) 19.5, [place] % (Auto) 5.7, Eos % (Auto) 1.9, Baso % (Auto) 0.3, Absolute Neuts (auto) 8.7 H, Absolute Lymphs (auto) 2.35, Nucleated RBC % 0 10/14/21 04:40: Sodium 141, Potassium 3.3 L, Chloride 109 H, Carbon Dioxide 26.0, Anion Gap 6, BUN 14, Creatinine 0.64, Estim Creat Clear Calc 36.08, Est GFR (MDRD) Af Amer 114, Est GFR (MDRD) Non-Af 94, BUN/Creatinine Ratio 21.7 H, Glucose 214 H, Calcium 9.3 10/14/21 04:40: Magnesium 1.5 L 10/14/21 08:00: PT 28.4 H, INR 2.7 ABG Data ABG results: ABG 10/13/21 15:24 Specimen Type ART Sample Site L Brach pH 7.39 Bicarbonate Actual 22.3 Total CO2 23 Base Excess -3 L O2 Saturation 99 ABG pCO2 36.6 ABG pO2 129 H Raghu Test Positive O2 Delivery Device Room Air Radiology Impression Brain CT 10/13/21 14:09 IMPRESSION: Chronic involutional changes of the brain. Electronically Signed: Uvaldo Biswas MD at 14:47 EDT , Cervical Spine CT 10/13/21 14:09 IMPRESSION: Partial opacification of the right mastoid air cells. Electronically Signed: Uvaldo Biswas MD at 14:48 EDT , Lumbar Spine X-Ray 10/13/21 14:09 IMPRESSION: Degenerative changes of the spine, as detailed above. Mild degree of loss of height of the superior endplate of the L4 vertebrae. Electronically Signed: Uvaldo Biswas MD at 14:50 EDT , Chest X-Ray 10/13/21 14:30 IMPRESSION: No acute abnormality is seen. Electronically Signed: Uvaldo Biswas MD at 14:49 EDT , Chest X-Ray 10/14/21 01:22 IMPRESSION: Central line as described. No pneumothorax. Electronically Signed: Aleyda Alexander MD at 1:53 EDT , Charges/Coding Visit Charges Office Visits / Consults: [id number] IP Consult L3
[2021-10-14 11:45] LABS: Bedside Glucose 223 mg/dL (74-106)
--- NOTE | 2021-10-14 15:00 | EKG12_ITS ---
Test Reason : OVERDOSE Blood Pressure : / mmHG Vent. Rate : 071 BPM Atrial Rate : 071 BPM P-R Int : 178 ms QRS Dur : 094 ms QT Int : 416 ms P-R-T Axes : 055 -05 184 degrees QTc Int : 452 ms Sinus rhythm with Premature atrial complexes T wave abnormality, consider lateral ischemia Abnormal ECG Confirmed by DWIGHT KEE, ANNE ([id number]), editor map AIDEN ELLIS ([id number]) on 10/17/2021 8:08:12 AM Referred By: DIRK Confirmed By:ANNE QUINTANILLA MD
[2021-10-14 16:21] LABS: Bedside Glucose 165 mg/dL (74-106)
[2021-10-14 21:06] LABS: Bedside Glucose 244 mg/dL (74-106)
[2021-10-15] VITALS (18 sets, daily range): BP systolic 98–187; BP diastolic 50–96; PULSE 61–77; RESP 17–24; TEMP 36.2–36.8; O2SAT 94–99
[2021-10-15 04:04] LABS: Absolute Lymphocyte Count 2.76 X10^3/uL (0.83-4.51); Absolute Neutrophil Count 3.1 X10^3/uL (2.0-7.7); Basophil# 0.02 X10^3/uL; Basophil% 0.3 % (0-1); Eosinophil# 0.16 X10^3/uL; Eosinophils% 2.5 % (0-5); Hematocrit 37.6 % (37-47); Hemoglobin 12.4 g/dL (12.0-15.0); Lymphocyte # 2.76 X10^3/ul (0.83-4.51); Lymphocyte % 42.9 % (19-41); Mean Corpuscular Hgb 29.9 pg (27.0-32.0); Mean Corpuscular Volume 90.6 fL (81-99); Mean Platelet Vol. 10.5 fl (6.2-12.0); Monocyte# 0.37 X10^3/uL; Monocyte% 5.7 % (0-10); NRBC Flagged by Analyzer 0 % (0-5); Neutrophil # 3.09 X10^3/uL (2.7-7.7); Platelet Count 133 K/mm3 (150-450); RBC Distribution Width CV 13.4 % (11.6-14.6); RBC Distribution Width SD 44.7 fl (35.1-43.9); Red Blood Count 4.15 M/mm3 (4.2-5.4); White Blood Count 6.4 K/mm3 (4.4-11.0)
[2021-10-15 04:32] LABS: Anion Gap 5 (5-15); BUN 8 mg/dL (7-18); Calcium,Total 9.1 mg/dL (8.5-10.1); Chloride 110 mmol/L (98-107); Creatinine, Serum 0.57 mg/dL (0.55-1.02); EST Glomerular Filtration Rate 108 mL/min (>60); Est Glom Filt Rate - Afr Amer 131 mL/min (>60); Estimated Creatinine Clearance 36.08 ml/min; Glucose 200 mg/dL (74-106); Potassium 3.6 mmol/L (3.5-5.1); Sodium Level 142 mmol/L (136-145)
[2021-10-15 09:17] LABS: International Normalized Ratio 1.4; Prothrombin Time (Protime)PT. 17.1 SECONDS (11.7-14.9)
--- NOTE | 2021-10-15 09:36 | PN.HOSP_ITS ---
Subjective Subjective Patient seen and examined. She feels much better today and has no active complaints. She is alert and sitting up in her chair. She denies any fever, chills, cough, chest pain, palpitations, dizziness, nausea or vomiting. Review of systems is otherwise negative. Objective Data Objective Data Vital Signs: Vital Signs Temp Pulse Resp BP Pulse Ox O2 Del Method O2 Flow Rate 97.8 F 74 20 H 122/83 H 94 Room Air 2 10/15/21 07:00 10/15/21 09:00 10/15/21 09:00 10/15/21 09:00 10/15/21 09:00 10/15/21 09:00 10/13/21 22:00 Oxygen Flow Rate (L/min) 2 Oxygen Delivery Method Room Air Weight: 212 lb 15.465 oz Body Mass Index (BMI) 37.7 Intake & Output: Intake and Output for Last 24 Hours 10/13/21 10/14/21 10/15/21 23:59 23:59 23:59 Intake Total 1120 / 1120 3226.25 / 3226.25 Output Total 650 / 650 1050 / 1050 650 / 650 Balance 470 / 470 2176.25 / 2176.25 -650 / -650 Lab / Micro Data Result Diagrams: 10/15/21 03:52 10/15/21 03:52 Labs: Laboratory Results - last 24 hr 10/14/21 04:40: Magnesium 1.5 L 10/14/21 11:25: POC Glucose 223 H 10/14/21 16:02: POC Glucose 165 H 10/14/21 20:48: POC Glucose 244 H 10/15/21 03:52: WBC 6.4, RBC 4.15 L, Hgb 12.4, Hct 37.6, MCV 90.6, MCH 29.9, MCHC 33.0, RDW Std Deviation 44.7 H, RDW Coeff of Viviane 13.4, Plt Count 133 L, MPV 10.5, Immature Gran % (Auto) 0.600, Neut % (Auto) 48.0, Lymph % (Auto) 42.9 H, [place] % (Auto) 5.7, Eos % (Auto) 2.5, Baso % (Auto) 0.3, Absolute Neuts (auto) 3.1, Absolute Lymphs (auto) 2.76, Nucleated RBC % 0 10/15/21 03:52: Sodium 142, Potassium 3.6, Chloride 110 H, Carbon Dioxide 27.0, Anion Gap 5, BUN 8, Creatinine 0.57, Estim Creat Clear Calc 36.08, Est GFR (MDRD) Af Amer 131, Est GFR (MDRD) Non-Af 108, BUN/Creatinine Ratio 14.0, Glucose 200 H, Calcium 9.1 10/15/21 08:25: PT 17.1 H, INR 1.4 Micro: Microbiology 10/13/21 17:30 Urine Catheter - Catheter Urine Culture - Preliminary GNR Poss Pseudomonas sp Physical Exam Const alert, oriented x3 and no apparent distress Constitutional Narrative: l HEENT normocephalic, head/scalp atraumatic and moist oral mucous membranes Head and Scalp: normocephalic Mouth: oral and palatal mucosa normal Eyes PERRL, EOMs intact bilaterally and conjunctivae normal Neck no lymphadenopathy and supple Resp Resp Narrative: mildly diminished breath sounds bibasally, no wheezes or crackles. On room air. Cardio regular rate, regular rhythm, S1 normal heart sound, S2 normal heart sound and no murmurs GI normal to inspection, nondistended, normoactive bowel sounds, soft to palpation, non-tender and non-distended Extremity normal to inspection and full ROM Neuro oriented x3, CN's II-XII intact bilaterally, moves all extremities and no focal motor deficits Neuro Narrative: Sensorium / Orientation: awake and alert Motor Exam: strength 5/5 throughout Psych affect normal Assessment & Plan Assessment/Plan (1) Suicide attempt: (2) Benzodiazepine overdose: (3) Acidosis, lactic: (4) Elevated INR: PLAN: Plan #Acute metabolic encephalopathy due to intentional overdose with alprazolam * Patient intentionally took about 30 0.5 mg tablets of alprazolam and also took an unknown number of pills of Xarelto in a suicide attempt. She did leave behind a note indicating she wanted to commit suicide. * much more alert and communicative today * resumed oral diet * serial EKG showed no QT prolongation. * * #Elevated INR * INR was 4.5 on admission and is now down to 1.4 * likely due to xarelto overdose * xarelto on hold. WIll trend INR * * #Lactic acidosis: resolved #Hypokalemia:resolved #Type 2 diabetes mellitus * passed swallow eval, so will put on 1800 calorie cardiac diet. * ISS. Accuchecks ACHS. * * #Hypertension:resume atenolol #Hyperlipidemia: resume statin DVT prophylaxis: INR is now down to 1.4. SCDs COde status: full code * * DIsposition: patient medically cleared for mental health crises evaluation. Will transfer to PCU Charges/Coding Visit Charges Inpatient E&M: 90865 Subs Hosp L2
[2021-10-15] MEDS: Insulin Lispro 100 UNIT/ML INSULN.PEN SC ×3 (11:10→22:58)
[2021-10-15 11:36] LABS: Bedside Glucose 299 mg/dL (74-106)
--- NOTE | 2021-10-15 11:55 | PCM.PN.INT ---
Assessment & Plan Assessment/Plan (1) Encephalopathy: PLAN: Acute toxic/metabolic encephalopathy in a patient with baseline cognitive impairment, history of recurrent UTI Multifactorial etiology likely in the setting of overdose and UTI Mental status back to baseline Monitor for now CT Brain without any acute pathology Will need to see social work and ensure she is safe to go home Pulmonary will sign off Subjective Subjective Patient seen and examined. She feels much better today and has no active complaints. She is alert and sitting up in her chair. She denies any fever, chills, cough, chest pain, palpitations, dizziness, nausea or vomiting. Review of systems is otherwise negative. She is able to answer all questions correctly. She recollects taking the pills but has regret. She does not have any suicidal ideations at this time. Objective Data Objective Data Vital Signs: Vital Signs Temp Pulse Resp BP Pulse Ox O2 Del Method O2 Flow Rate 36.6 C 68 22 H 151/96 H 94 Room Air 2 10/15/21 07:00 10/15/21 11:06 10/15/21 11:00 10/15/21 11:00 10/15/21 11:00 10/15/21 11:00 10/13/21 22:00 Oxygen Flow Rate (L/min) 2 Oxygen Delivery Method Room Air Weight: 96.6 kg Body Mass Index (BMI) 37.7 Intake & Output: Intake and Output for Last 24 Hours 10/13/21 10/14/21 10/15/21 23:59 23:59 23:59 Intake Total 1120 / 1120 3226.25 / 3226.25 240 / 240 Output Total 650 / 650 1050 / 1050 1050 / 1050 Balance 470 / 470 2176.25 / 2176.25 -810 / -810 Lab / Micro Data Result Diagrams: 10/15/21 03:52 10/15/21 03:52 Labs: Laboratory Results - last 24 hr 10/14/21 16:02: POC Glucose 165 H 10/14/21 20:48: POC Glucose 244 H 10/15/21 03:52: WBC 6.4, RBC 4.15 L, Hgb 12.4, Hct 37.6, MCV 90.6, MCH 29.9, MCHC 33.0, RDW Std Deviation 44.7 H, RDW Coeff of Viviane 13.4, Plt Count 133 L, MPV 10.5, Immature Gran % (Auto) 0.600, Neut % (Auto) 48.0, Lymph % (Auto) 42.9 H, [place] % (Auto) 5.7, Eos % (Auto) 2.5, Baso % (Auto) 0.3, Absolute Neuts (auto) 3.1, Absolute Lymphs (auto) 2.76, Nucleated RBC % 0 10/15/21 03:52: Sodium 142, Potassium 3.6, Chloride 110 H, Carbon Dioxide 27.0, Anion Gap 5, BUN 8, Creatinine 0.57, Estim Creat Clear Calc 36.08, Est GFR (MDRD) Af Amer 131, Est GFR (MDRD) Non-Af 108, BUN/Creatinine Ratio 14.0, Glucose 200 H, Calcium 9.1 10/15/21 08:25: PT 17.1 H, INR 1.4 10/15/21 11:05: POC Glucose 299 H Micro: Microbiology 10/13/21 17:30 Urine Catheter - Catheter Urine Culture - Final Pseudomonas aeroginosa Charges/Coding Visit Charges Inpatient E&M: 47198 Subs Hosp L3
--- NOTE | 2021-10-15 12:15 | NURSING ---
Mental health/ornamental metal worker at bedside to evaluate patient now that she has been medically cleared for discharge by Dr Ibarra.
[2021-10-15 16:51] LABS: Bedside Glucose 218 mg/dL (74-106)
--- NOTE | 2021-10-15 18:17 | DS.PCM_ITS ---
Providers Date of Admission: 10/13/21 Date of Discharge: 10/15/21 Primary Care Physician: Dr. Luanne Aquino MD Consultations 10/13/21 19:23 Consult: [employer] / Pulmonary Medicine Routine Consulting Provider: Pulmonary Medicine valdez Ayala Reason for Consult: intentional benzodiazepine overdose EMERGENT Consult: No MD Notified: Yes Date Notified: 10/13/21 Time Notified: 18:47 Method of Notification: Text Reason For Visit: INTENTIONAL OVERDOSE Diagnosis Discharge Diagnosis (1) Encephalopathy: Status: Acute Code(s): G93.40 - Encephalopathy, unspecified Plan #Acute metabolic encephalopathy due to intentional overdose with alprazolam * Patient intentionally took about 30 0.5 mg tablets of alprazolam and also took an unknown number of pills of Xarelto in a suicide attempt. She did leave behind a note indicating she wanted to commit suicide. * much more alert and communicative today * resumed oral diet * serial EKG showed no QT prolongation. * * #Elevated INR * INR was 4.5 on admission and is now down to 1.4 * likely due to xarelto overdose * xarelto on hold. WIll trend INR * * #Lactic acidosis: resolved #Hypokalemia:resolved #Type 2 diabetes mellitus * passed swallow eval, so will put on 1800 calorie cardiac diet. * ISS. Accuchecks ACHS. * * #Hypertension:resume atenolol #Hyperlipidemia: resume statin DVT prophylaxis: INR is now down to 1.4. SCDs COde status: full code * * DIsposition: patient medically cleared for mental health crises evaluation. Will transfer to PCU Medications at Discharge Home Medications bumetanide 0.5 mg tablet 1 - 2 mg PO DAILY PRN Swelling 05/25/19 fluticasone propionate 50 mcg/actuation nasal spray,suspension 1 spray NASAL DAILY PRN Allergy Symptoms 05/25/19 metformin 500 mg tablet,extended release 24 hr 1,000 mg PO BID diabetes 05/25/19 atorvastatin 40 mg tablet 40 mg PO QHS cholesterol 12/11/19 loratadine 10 mg tablet 10 mg PO DAILY ALLERGIES 10/06/20 rivaroxaban 20 mg tablet (Xarelto) 20 mg PO DAILY #30 tabs 10/08/20 alprazolam 0.5 mg tablet 1 tab PO QHS sleep 09/24/21 atenolol 50 mg tablet 50 mg PO DAILY blood pressure 09/24/21 cefdinir 300 mg capsule 300 mg PO BID #10 caps 09/26/21 Hospital Course Operations None Procedures None Summary of Care Provided Minutes Spent on Discharge: 55 Hospital Course: LAURA MARTIN, is a 80 F with a past medical history as outlined.? She was admitted through the ED on 10/13/2021 after being found unresponsive at home.? Patient's children had not had from here for about 1-1/2 days so they called the squad to go check on the patient.? Patient was found naked in the bathroom with a lot of pills lying around hair when the squad arrived.? She could not follow commands and was not answering any questions.? There was no obvious sign of trauma when she was found.? She was therefore brought into the ED.? History was mainly taken from her daughter and son as patient was unresponsive.? According to her daughter she went back to her mother's house after she was brought to the ED and she found an empty bottle of alprazolam 0.5 mg tablets.? Patient states that this was recently refilled a few days ago and the bottle was full.? She also found a nearly empty bottle of Xarelto.? She therefore suspected that her mother had taken those pills as an overdose.? Daughter states he subsequently found and notes that her mother had written stating which indicated that she wanted to commit suicide with overdose of the pills. Vitals in the ED were blood pressure 155/65, pulse rate of 67, respiratory rate of 22 and she was saturating at 98% on room air.? CBC showed WBC of 15.7 with hemoglobin of 15.7 and platelets of 183.? INR was 4.5.? ABG showed pH of 7.39 with total CO2 of 23 and PO2 of 129 also on room air.? Chemistry was significant for potassium of 3.3 but was otherwise unremarkable.? Lactic acid was 3.6 and calcium was 10.9 with glucose of 248 and liver enzymes were within normal limits.? Urinalysis showed no evidence of UTI and urine salicylate was less than 1.7.? Urine toxicology was positive for benzodiazepines and serum alcohol level was 5.? CT of the brain showed chronic involutional changes and cervical spine CT showed partial opacification of the right mastoid air cells.? Chest x-ray showed no acute abnormality and lumbar spine x-ray showed degenerative changes of the spine.? EKG showed normal sinus rhythm with no QT prolongation and no other acute ST changes.? The ED did speak to poison control center who recommended looking of cardiac abnormalities and to repeat lactic acid.? Half- life of Xanax was thought to be about 16 hours especially due to the patient's advanced age.? Patient was admitted to the ICU to be managed for intentional polysubstance overdose and attempted suicide as well as acute metabolic encephalopathy. She was managed conservatively and hydrated with IVF. Patient's mentation improved. Serial EKGs did not show any QT prolongation. She became more alert and oriented and lactic acidosis resolved. Elevated INR also resolved. Mental health crisis team was consulted and patient was deemed as needing inpatient psychiatric evaluation. She was pink slipped and accepted to an inpatient psych facility on 10/15/2021. She was discharged to the inpatient psych facility on 10/15/2021. Patient was seen and examined prior to discharge. She felt much better and had no active complaints. She had an uneventful night and review of systems otherwise negative. Labs and vitals reviewed. Home medication reviewed and reconciled. Physical Exam Const alert, oriented x3 and no apparent distress Constitutional Narrative: l General Appearance: cooperative and comfortable Orientation / Consciousness: awake Exam Limitations: no limitations HEENT normocephalic, head/scalp atraumatic, hearing grossly normal bilaterally and moist oral mucous membranes Mouth: oral and palatal mucosa normal Eyes PERRL, EOMs intact bilaterally and conjunctivae normal Eyes Narrative: pupils not pinpoint, equal and react to light Neck no lymphadenopathy and supple Resp Resp Narrative: mildly diminished breath sounds bibasally, no wheezes or crackles. On room air. Cardio regular rate, regular rhythm, S1 normal heart sound, S2 normal heart sound and no murmurs GI normal to inspection, nondistended, normoactive bowel sounds, soft to palpation, non-tender and non-distended Extremity normal to inspection and full ROM Skin no rashes or lesions noted Neuro oriented x3, CN's II-XII intact bilaterally, moves all extremities and no focal motor deficits Neuro Narrative: Sensorium / Orientation: awake and alert Motor Exam: strength 5/5 throughout Psych affect normal Weight / BMI Weight Weight: 212 lb 15.465 oz Body Mass Index (BMI) 37.7 ABG / Lab / Microbiology Data Result Diagrams: 10/15/21 03:52 10/15/21 03:52 Laboratory: Laboratory Results - last 24 hr 10/14/21 20:48: POC Glucose 244 H 10/15/21 03:52: WBC 6.4, RBC 4.15 L, Hgb 12.4, Hct 37.6, MCV 90.6, MCH 29.9, MCHC 33.0, RDW Std Deviation 44.7 H, RDW Coeff of Viviane 13.4, Plt Count 133 L, MPV 10.5, Immature Gran % (Auto) 0.600, Neut % (Auto) 48.0, Lymph % (Auto) 42.9 H, [place] % (Auto) 5.7, Eos % (Auto) 2.5, Baso % (Auto) 0.3, Absolute Neuts (auto) 3.1, Absolute Lymphs (auto) 2.76, Nucleated RBC % 0 10/15/21 03:52: Sodium 142, Potassium 3.6, Chloride 110 H, Carbon Dioxide 27.0, Anion Gap 5, BUN 8, Creatinine 0.57, Estim Creat Clear Calc 36.08, Est GFR (MDRD) Af Amer 131, Est GFR (MDRD) Non-Af 108, BUN/Creatinine Ratio 14.0, Glucose 200 H, Calcium 9.1 10/15/21 08:25: PT 17.1 H, INR 1.4 10/15/21 11:05: POC Glucose 299 H 10/15/21 16:00: POC Glucose 218 H Microbiology: Microbiology 10/15/21 16:33 Nasal Secretion SARS-CoV-2 Antigen (Rapid) - Final 10/13/21 15:20 Blood Culture (Wb) - Anticubital Left Blood Culture - Preliminary No growth in 48 hours. 10/13/21 17:30 Urine Catheter - Catheter Urine Culture - Final Pseudomonas aeroginosa D/C Instructions Discharge Diet: Low fat / Low cholesterol Meaningful Use Info Meaningful Use Diagnoses (Choose all that apply): None applicable Discharge Plan Admission Admit Date/Time: 10/13/21 18:45 Primary Reason for Your Visit: intentional benzodiazepine overdose Attending Provider: Delmy Ibarra Primary Care Provider: Luanne Aquino Consulting Providers: Jesus Grier ; Leodan Hedrick ; Hitesh Rey ; Ashia Morales [employer] Discharge Orders/Prescriptions Prescriptions: No Action bumetanide 0.5 MG tablet 1 - 2 mg PO DAILY PRN (Reason: Swelling) metformin 500 MG tablet 1,000 mg PO BID fluticasone propionate 1 SPRAY spray,suspension 1 spray NASAL DAILY PRN (Reason: Allergy Symptoms) atorvastatin 40 MG tablet 40 mg PO QHS loratadine 10 mg tablet 10 mg PO DAILY Xarelto 20 mg tablet 20 mg PO DAILY Qty: 30 0RF Rx Instructions: must administer with evening meal atenolol 50 mg tablet 50 mg PO DAILY alprazolam 0.5 mg tablet 1 tab PO QHS Label Comments: TAKE 1 TABLET BY MOUTH ONCE DAILY NEEDED FOR UP TO 60 DAYS. cefdinir 300 mg capsule 300 mg PO BID Qty: 10 0RF Referrals / Follow Up: Luanne Aquino MD [Primary Care Provider] - Within 2 Weeks Disposition Disposition (needs filled in before D/C Order can be placed): Psychiatric Hospital or Unit Charges/Coding Visit Charges Inpatient E&M: 33849 Disch Hosp
[2021-10-15 18:23] LABS: CPK Total, Creatine Kinase 38 U/L (26-192)
[2021-10-15 23:25] LABS: Bedside Glucose 193 mg/dL (74-106)
[2021-10-16] VITALS: PULSE 68
[2021-10-16 02:00] VITALS: BP 169/72; PULSE 68; RESP 13; TEMP 35.9; O2SAT 97
[2021-10-16 04:00] VITALS: PULSE 68
[2021-10-16 05:56] VITALS: BP 175/82; PULSE 68; RESP 13; TEMP 35.9; O2SAT 97
[2021-10-16] MEDS: Acetaminophen 325 MG Tablet 650 MG PO (06:16)
== END 2021-10-16 07:00 | DRG 917 ==
LOC: ED 18:37 → PCU 18:53 → ICU 19:30
PROVIDERS: Nurse Practitioner; Admitting Provider Student in an Organized Health Care Education/Training Program; Emergency Provider Student in an Organized Health Care Education/Training Program; PCP Internal Medicine; Visit Provider Internal Medicine
DX: T42.4X2A Poisoning by benzodiazepines, intentional self-harm, initial encounter (principal); G92.8 Other toxic encephalopathy; E87.2 Acidosis; N39.0 Urinary tract infection, site not specified; E11.9 Type 2 diabetes mellitus without complications; E78.5 Hyperlipidemia, unspecified; E87.6 Hypokalemia; B96.89 Other specified bacterial agents as the cause of diseases classified elsewhere; T14.91XA Suicide attempt, initial encounter; I10 Essential (primary) hypertension; F41.9 Anxiety disorder, unspecified; R79.1 Abnormal coagulation profile; Z79.01 Long term (current) use of anticoagulants; Z66 Do not resuscitate; Z79.84 Long term (current) use of oral hypoglycemic drugs
CPT/HCPCS: 36600; 51702; 70450; 71045; 72100; 72125; 80048; 80053; 80307; 80329; 81001; 82077; 82550; 82803; 82962; 83605; 83735; 85025; 85610; 87040; 87077; 87086; 87088; 87184; 87186; 87426; 93005; 99285; J2185; J7030; A4216; G0480; J2405